=== PATIENT | male | born 1945 | race Caucasian/White ===

== ENCOUNTER 2020-01-08 00:13 | Observation (INO) | payer MEDICARE, SELFPAY ==
[2020-01-08] VITALS (9 sets, daily range): BP systolic 98–179; BP diastolic 51–82; PULSE 63–94; RESP 16–99; TEMP 36.2–36.9; O2SAT 93–100; BMI 32.0
--- NOTE | ~2020-01-08 | US_ITS ---
EXAMINATION: US venous doppler [facility] DATE: 01/10/2020 11:56 INDICATION: Lower limb swelling. TECHNIQUE: Grayscale ultrasound images without and with compression and Doppler ultrasound images of the bilateral lower extremity veins were obtained. COMPARISON: Ultrasound 03/29/2019, 07/12/2018 FINDINGS: The visualized portions of right common femoral vein, profunda (deep) femoral vein, femoral vein, pop liteal vein, peroneal veins, posterior tibial veins, and greater saphenous vein outflow are patent. The visualized portions of left common femoral vein, profunda femoral vein, femoral vein, popliteal v ein, peroneal veins, posterior tibial veins, and greater saphenous vein outflow are patent. IMPRESSION: 1. No deep venous thrombosis. Reviewed, dictated and finalized at location A. NTORY CONTROL ANALYST
--- NOTE | ~2020-01-08 | XR_ITS ---
EXAMINATION: XR ankle LT min 3V DATE: 01/08/2020 00:47 INDICATION: Left ankle pain. TECHNIQUE: 4 views of left ankle were obtained. COMPARISON: None. FINDINGS: Bone alignment is normal. No fracture. Joint spaces are well maintained. There are enthesop hytes at the posterior and plantar aspects of calcaneal tuberosity. Ankle soft tissue swelling is not ed. IMPRESSION: 1. No fracture. Reviewed, dictated and finalized at location A. RETE PUDDLER IMPRESSION: 1. No fracture.
--- NOTE | ~2020-01-08 | XR_ITS ---
EXAMINATION: XR md joint inject/asp w image DATE: 01/08/2020 10:07 INDICATION: Left ankle pain and swelling. TECHNIQUE: A time-out was performed to verify the patient's name, date of , and procedure to b e performed. The procedure including the risks, benefits, and alternatives was discussed with the pat ient. Risks discussed included bleeding and infection. The patient understood the risks and agreed to proceed. The skin overlying the left ankle joint was prepped and draped in usual sterile fashion. Anesthetic was administered with 1% lidocaine subcutaneously. An 18 G needle was advanced under fluo roscopic guidance into the joint. No fluid could be aspirated. Injection of 1 mL of Omnipaque 240 con firmed intra-articular position of the needle. The needle was removed and the entry site was cleaned and dressed. There were no immediate complications. Fluoroscopy exposure time was 0.1 minutes. The t otal number of images was 2. FINDINGS: Real-time fluoroscopy demonstrates the needle in the left ankle joint. IMPRESSION: 1. Fluoroscopy guided left ankle joint aspiration yielding no fluid. Reviewed, dictated and finalized at location A. [employer]
--- NOTE | 2020-01-08 00:36 | ED.EXTPRO ---
HPI - Extremity Problem General Chief complaint: Extremity Injury, Lower Stated complaint: ankle Time Seen by Provider: 01/08/20 00:31 Source: patient and RN notes reviewed Mode of arrival: ambulatory Limitations: no limitations History of Present Illness HPI Narrative: Pt is a 74 y/o male with a Hx of DM and PVD, who presents to the ED with c/o worsening lt foot pain and swelling starting 2 days ago. Pain is dull, aching in nature. He notes that his pain has been progressively worsening, stating that he was unable to sleep this evening due to his pain. Pt notes that movement of his lt ankle aggravates his pain. He currently denies any fever, chills, or numbness. He denies trauma to the left ankle. He denies using any new shoes or orthotic inserts. He denies history of skin infection in the past. MD Complaint: extremity pain and extremity swelling Onset (ago): day(s) (2) Pain Consistency: other (worsening) Location: left (foot) Exacerbating factors: range of motion (lt ankle) Associated symptoms: denies other symptoms Context: history of peripheral vascular disease Related Data Home Medications Medication Instructions Recorded Confirmed atorvastatin 80 mg tablet 80 mg PO DAILY 09/23/19 09/23/19 carvedilol 6.25 mg tablet 6.25 mg PO Q12H 09/23/19 09/23/19 clopidogrel 75 mg tablet 75 mg PO DAILY 09/23/19 09/23/19 furosemide 40 mg tablet 40 mg PO QAM 09/23/19 09/23/19 glipizide 5 mg tablet 5 mg PO BID 09/23/19 09/23/19 isosorbide mononitrate 30 mg 60 mg PO DAILY tablet 09/23/19 09/23/19 tablet,extended release 24 hr mecobalamin (vitamin B12) 1,000 1,000 mcg SUBLINGUAL DAILY 09/23/19 09/23/19 mcg disintegrating tablet,sublingual sacubitril 24 mg-valsartan 26 mg 1 tablet PO BID 09/23/19 09/23/19 tablet spironolactone 25 mg tablet 25 mg PO DAILY 09/23/19 09/23/19 levothyroxine 50 mcg tablet 50 mcg PO DAILY 09/25/19 09/25/19 ranitidine HCl 150 mg capsule 150 mg PO BID cap 09/25/19 09/25/19 vitamins A,C,I-sokj-irbcpo 14,320 1 cap PO BID 09/25/19 09/25/19 unit-226 mg-200 unit capsule Allergies Allergy/AdvReac Type Severity Reaction Status Date / Time Penicillins Allergy Unknown unknown Verified 09/25/19 10:20 Review of Systems Review of Systems: Narrative: CONSTITUTIONAL: Denies fever, chills, or sweats. CARDIOVASCULAR: Denies chest pain, palpitations, or edema. RESPIRATORY: Denies cough or dyspnea. SKIN: Denies rash or itching. MUSCULOSKELETAL: Denies back pain, joint pain, or myalgia. Reports lt foot pain and swelling. NEUROLOGIC: Denies headache, numbness, or weakness. 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 DVT (deep venous thrombosis) Essential (primary) hypertension Gastro-esophageal reflux disease without esophagitis History of stent insertion of renal artery Hypothyroidism, unspecified Mixed hyperlipidemia Pancreatitis Peripheral vascular disease, unspecified Positive for macroalbuminuria Psoriasis Sleep apnea, unspecified (12/29/15) Type 2 diabetes mellitus with stage 3 chronic kidney disease, with long-term current use of insulin Umbilical hernia without obstruction and without gangrene Surgical History Surgical History Hx of CABG Hx of cardiac catheterization Hx of tonsillectomy Social History Social History Smoking status: Former smoker Second hand tobacco smoke exposure: No Smoking end d
[2020-01-08 01:24] LABS: Basophils Percent Auto 0.3 % (0.2-1.2); Eosinophils Absolute Auto 0.3 K/mm3 (0-0.3); Eosinophils Percent Auto 2.1 % (0-4.4); Hematocrit 39.3 % (42.0-52.0); Hemoglobin 12.4 g/dL (14.0-18.0); Immature Granulocyte Absolute 0.03 K/mm3 (0.00-0.031); Immature Granulocyte Percent A 0.2 % (0-0.5); Lymphocytes Absolute Auto 1.52 K/mm3 (0.9-3.2); Mean Corpuscular HGB Conc 31.6 g/dl (32-36); Mean Corpuscular Hemoglobin 30.6 pg (26-34); Mean Platelet Volume 11.1 fl (7.4-10.4); Monocytes Absolute Auto 1.1 K/mm3 (0.1-0.6); Monocytes Percent Auto 8.9 % (2.6-8.5); Neutrophils Absolute Auto 9.7 K/mm3 (1.3-6.7); Neutrophils Percent Auto 76.5 % (45.5-73.1); Platelet Count Result 174 k/mm3 (150-375); Red Blood Count 4.05 M/mm3 (4.6-6.20); Red Cell Distribution Width 13.7 % (11.5-14.5); White Blood Count 12.7 K/mm3 (4.5-10.0)
[2020-01-08 01:34] LABS: Blood Urea Nitrogen 38 mg/dL (9-20); CRP 1.8 mg/dL (<1.0); Calcium 9.4 mg/dL (8.4-10.2); Carbon Dioxide 23 mmol/L (22-30); Chloride 107 mmol/L (98-107); Estimated CRCL calculation 33 ml/min; Estimated Glomerular Filt Rate 35; Glucose 117 mg/dL (75-110); Potassium 4.6 mmol/L (3.4-5.0); Sodium 144 mmol/L (137-145)
[2020-01-08 02:01] LABS: Erythrocyte Sedimentation Rate 46 mm/hr (0-20)
[2020-01-08 05:01] LABS: Glucose Point of Care 120 (65-105)
--- NOTE | 2020-01-08 06:16 | ADMGEN ---
This patient, Jaime Morrell, was admitted to Medical Room 348-. Patient/family oriented to hospital policies and general routines including ID bracelet, bed and alarms, visiting hours, pain management, procedures, bathroom and other care routines, personal items, smoking policy, room service/diet, and visiting hours. Valuables list has been completed. Information on how to activate the Rapid Response Team has been discussed. Patient/Family are encouraged to report perceived risks to care and to ask questions if they do not understand what they are told or what they should do.
[2020-01-08 06:24] LABS: Estimated CRCL calculation 34 ml/min; Estimated Glomerular Filt Rate 37
[2020-01-08 08:26] LABS: Glucose Point of Care 138 (65-105)
[2020-01-08] MEDS: CYANOCOBALAMIN 1,000 MCG TABLET 1000 MCG PO (10:07)
[2020-01-08 10:08] LABS: Glucose Point of Care 120 (65-105)
[2020-01-08] MEDS: carvediloL 6.25 MG TABLET PO ×2 (10:08→20:00)
[2020-01-08] MEDS: SACUBITRIL/VALSARTAN 49-51 MG TABLET 1 TABLET PO ×2 (10:08→20:00)
[2020-01-08] MEDS: ISOSORBIDE MONONITRATE 60 MG TAB.ER.24H PO (10:08)
[2020-01-08] MEDS: FAMOTIDINE 20 MG TABLET PO ×2 (10:09→20:00)
[2020-01-08] MEDS: FUROSEMIDE 40 MG TABLET PO (10:09)
[2020-01-08] MEDS: LEVOTHYROXINE SODIUM 50 MCG TABLET PO (10:09)
[2020-01-08] MEDS: MICONAZOLE NITRATE 2% CREAM 30 GM TUBE 1 APPLIC TOPICAL (10:10)
[2020-01-08] MEDS: SPIRONOLACTONE 25 MG TABLET PO (10:10)
--- NOTE | 2020-01-08 10:47 | PM.IMHP ---
H&P: HPI History of Present Illness Chief complaint: RIGHT FOOT AND ANKLE CELLULITIS Narrative: Jaime Morrell is a 74 year old male with PMH significant for T2DM (last A1C 5.17 Aug 2019), CKD stage III, HLD, hypothyroidism, GERD, HTN, CAD s/p CABG x2 (5 vessel in 1987 and 1 vessel in 2003), diastolic CHF, defibrillator placement, former 28 pack-year smoker, right groin arterial thrombosis following cardiac catheterization requiring 2 compartment RLE fasciotomy in February 2019, and PAD s/p right CEA and aortobifemoral bypass who presented to the ED via EMS with c/o pain and swelling of the left ankle. He reports that sx started Sunday. Pain was dull initially and progressed. He noted mild-moderate discomfort during the day Sunday while running errands. That night, the pain became very severe. On Sunday, he was unable to bear weight on it and stayed in bed until he called EMS. Pain is aggravated with movement and bearing weight. He denies associated sx of nausea, vomiting, fever, and chills. He denies trauma. He denies any prior hx of gout or cellulitis. He does report hx of osteoarthritis. He reports that he is not sexually active. He denies recent GI or infection. He denies abdominal pain. He denies any hx of peripheral vascular intervention to the lower extremities. He denies chest pain, cough, and SOB. He denies claudication. Upon presentation to the ED, he was afebrile. Initial workup in the ED revealed leukocytosis (12.7) with a left shift. ESR elevated at 46 and CRP elevated at 1.8. Sodium was 144, potassium 4.6, chloride 107, CO2 23, BUN 38, and Cr 1.9. Left ankle xray was performed and revealed soft tissue swelling without subcutaneous gas, well-maintained joint spaces, and no evidence of fracture. Joint aspiration was attempted in the ED without success. Empiric antibiotics were initiated. The pt was admitted to the hospitalist service for further evaluation and management. Review of Systems Review of Systems: Narrative: Constitutional: Denies fever, chills, fatigue, and appetite change. Denies generalized weakness. Eyes: Denies vision change. No additional eye complaints. ENT: Denies change in hearing, nasal congestion, dysphagia, odynophagia,and sore throat. Cardiovascular: Denies palpitations and chest pain. Respiratory: Denies cough and shortness of breath. Gastrointestinal: Denies abdominal pain, nausea, and vomiting. Genitourinary: Denies dysuria, frequency, urgency, and hesitancy. Musculoskeletal: Endorses left ankle pain and swelling. Skin: No rashes present. The pt endorses erythema that is hot to touch to left ankle. Endorses calluses to the left foot. Neurologic: Denies focal weakness, paresthesias, confusion, and speech change. Psychiatric: Denies mood change. Denies anxiety and depression. Hematologic: Pt is on plavix and ASA. All systems reviewed & are unremarkable except as noted in HPI and below PMFSH Family History Family History Mother Hypertension Family history of coronary artery disease Father Acute myocardial infarction Family history of coronary artery disease Social History Social History (Updated 01/08/20 @ 10:52 by Yazmin Mancuso PA-C) Smoking packs per day: 1 Smoking cigarettes per day: 20.0 Years smoked: 28 Smoking pack-years: 28.00 Smoking status: Former smoker Tobacco type: cigarettes Second hand tobacco smoke exposure: Yes Smoking end date: 11/12/87 Alcohol intake: never Substance use: never Gender identity (if verbalized by the patient): Male Spiritual care concerns: No Agree to blood products: Yes Comments The pt reports that he lives at home by himself. He has designated his nephew, Rigoberto, as his surrogate decision-maker. 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 He is a former 28 pack-year smoker. He quit smoking in 1987. He denies alcohol use. Meds Home Medications and Allergies Home Medications Medicati
[2020-01-08 12:16] LABS: Uric Acid 8.4 mg/dL (3.5-8.5)
[2020-01-08] MEDS: CLOPIDOGREL BISULFATE 75 MG TABLET PO (12:28)
[2020-01-08] MEDS: ASPIRIN 81 MG ENTERIC TABLET PO (12:28)
[2020-01-08 13:43] LABS: Glucose Point of Care 153 (65-105)
[2020-01-08 13:59] LABS: Glucose Point of Care 174 (65-105)
[2020-01-08] MEDS: ENOXAPARIN 40 MG/0.4 ML SYRINGE SUB-Q (18:06)
[2020-01-08 18:07] LABS: Glucose Point of Care 120 (65-105)
[2020-01-08 19:41] LABS: Glucose Point of Care 120 (65-105)
[2020-01-08] MEDS: ATORVASTATIN 40 MG TABLET 80 MG PO (20:00)
[2020-01-09] MEDS: LEVOTHYROXINE SODIUM 50 MCG TABLET PO (05:57)
[2020-01-09 06:00] VITALS: BP 140/58; PULSE 66; RESP 15; TEMP 36.4; O2SAT 97
[2020-01-09 06:08] LABS: Basophils Percent Auto 0.3 % (0.2-1.2); Eosinophils Absolute Auto 0.2 K/mm3 (0-0.3); Hematocrit 35.7 % (42.0-52.0); Hemoglobin 11.3 g/dL (14.0-18.0); Immature Granulocyte Absolute 0.02 K/mm3 (0.00-0.031); Immature Granulocyte Percent A 0.2 % (0-0.5); Lymphocytes Percent Auto 15.7 % (18.3-44.2); Mean Corpuscular HGB Conc 31.7 g/dl (32-36); Mean Corpuscular Hemoglobin 30.5 pg (26-34); Mean Corpuscular Volume 96.5 fl (80-100); Mean Platelet Volume 11.3 fl (7.4-10.4); Monocytes Absolute Auto 1.1 K/mm3 (0.1-0.6); Monocytes Percent Auto 10.5 % (2.6-8.5); Neutrophils Absolute Auto 7.3 K/mm3 (1.3-6.7); Neutrophils Percent Auto 71.3 % (45.5-73.1); Platelet Count Result 162 k/mm3 (150-375); Red Cell Distribution Width 13.8 % (11.5-14.5); White Blood Count 10.2 K/mm3 (4.5-10.0)
[2020-01-09 06:23] LABS: Alanine Aminotransferase 15 U/L (4-50); Albumin Level 3.7 g/dL (3.5-5.1); Alkaline Phosphatase 85 U/L (38-126); Aspartate Amino Transferase 17 U/L (17-59); Bilirubin,Total 0.4 mg/dL (0.2-1.3); Blood Urea Nitrogen 45 mg/dL (9-20); Carbon Dioxide 23 mmol/L (22-30); Chloride 103 mmol/L (98-107); Estimated CRCL calculation 27 ml/min; Estimated Glomerular Filt Rate 28; Glucose 126 mg/dL (75-110); Potassium 4.1 mmol/L (3.4-5.0); Sodium 141 mmol/L (137-145)
[2020-01-09 07:30] LABS: Glucose Point of Care 128 (65-105)
[2020-01-09] MEDS: FAMOTIDINE 20 MG TABLET PO ×2 (09:17→21:05)
[2020-01-09] MEDS: CYANOCOBALAMIN 1,000 MCG TABLET 1000 MCG PO (09:17)
[2020-01-09 09:18] VITALS: PULSE 68
[2020-01-09] MEDS: carvediloL 6.25 MG TABLET PO ×2 (09:18→21:06)
[2020-01-09] MEDS: CLOPIDOGREL BISULFATE 75 MG TABLET PO (09:18)
[2020-01-09] MEDS: ASPIRIN 81 MG ENTERIC TABLET PO (09:18)
[2020-01-09] MEDS: SPIRONOLACTONE 25 MG TABLET PO (09:18)
[2020-01-09] MEDS: ISOSORBIDE MONONITRATE 60 MG TAB.ER.24H PO (09:18)
[2020-01-09] MEDS: SACUBITRIL/VALSARTAN 49-51 MG TABLET 1 TABLET PO ×2 (09:18→21:05)
[2020-01-09 09:19] VITALS: PULSE 72; RESP 16; O2SAT 96
[2020-01-09] MEDS: MICONAZOLE NITRATE 2% CREAM 30 GM TUBE 1 APPLIC TOPICAL (09:19)
--- NOTE | 2020-01-09 09:57 | P.PNIM_ITS ---
Progress Note: A&P Assessment and Plan (1) Cellulitis in diabetic foot: Code(s): E11.628 - Type 2 diabetes mellitus with other skin complications; L03.119 - Cellulitis of unspecified part of limb Status: Acute Assessment and Plan: * Ddx includes septic arthritis. Pt is s/p unsuccessful attempt at joint aspiration of the left ankle by IR under fluoro guidance. Discussed with the radiologist who does not believe that there is an effusion present. * Discussed the case with ortho, Dr. Gonzalez, who does not feel MRI is necessary at this time. * Pt endorses that pain, erythema, and swelling are improving. He is still unable to bear weight. * Pt is on empiric antibiotics of cefepime and vancomycin for presumed cellulitis. Will continue IV antibiotics as I believe pt will still benefit from IV therapy at this time. 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 * Pt is on glipizide prior to admission. Will hold glipizide. * SSI, ACHS, and hypoglycemia protocol * Blood sugars reviewed and at target. (3) CKD (chronic kidney disease), stage III: Code(s): N18.3 - Chronic kidney disease, stage 3 (moderate) Status: Acute Assessment and Plan: * Pt has hx of CKD stage III due to diabetes, HTN, vascular disease, and age and is established with Dr. Ureña * Baseline Cr appears to be 1.8-2.3 * Cr today 2.3, up from 1.8 yesterday. * I am reluctant to add IV fluids due to CHF and hx of CHF exacerbation * Will hold lasix today and monitor * Will renally dose medications (4) Peripheral vascular disease, unspecified: Code(s): I73.9 - Peripheral vascular disease, unspecified Status: Acute Assessment and Plan: * The pt has significant hx of peripheral vascular disease including carotid stenosis s/p right CEA, aortobifemoral bypass, possible mesenteric bypass per pt, and renal intervention. He denies prior hx of LLE peripheral vascular interventions including stenting and bypass. * Pt has palpable (2+) left DP * Will continue ASA and plavix (5) Mixed hyperlipidemia: Code(s): E78.2 - Mixed hyperlipidemia Status: Acute Assessment and Plan: * LFTs from 03/29/19 reviewed and WNL * Continue atorvastatin 80mg (6) Hypothyroidism, unspecified: Code(s): E03.9 - Hypothyroidism, unspecified Status: Acute Assessment and Plan: * Continue levothyroxine 50mcg (7) Gastro-esophageal reflux disease without esophagitis: Code(s): K21.9 - Gastro-esophageal reflux disease without esophagitis Status: Acute Assessment and Plan: * Pt was previously on ranitidine but his prescription ran out * Will treat with famotidine while inpatient (8) Essential (primary) hypertension: Code(s): I10 - Essential (primary) hypertension Status: Acute Assessment and Plan: * BP reviewed and stable * Will continue prior to admission antihypertensives * Will continue to monitor (9) 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
--- NOTE | 2020-01-09 09:57 | PM.IMPN ---
Progress Note: A&P Assessment and Plan (1) Cellulitis in diabetic foot: Code(s): E11.628 - Type 2 diabetes mellitus with other skin complications; L03.119 - Cellulitis of unspecified part of limb Status: Acute Assessment and Plan: Ddx includes septic arthritis. Pt is s/p unsuccessful attempt at joint aspiration of the left ankle by IR under fluoro guidance. Discussed with the radiologist who does not believe that there is an effusion present. Discussed the case with ortho, Dr. Gonzalez, who does not feel MRI is necessary at this time. Pt endorses that pain, erythema, and swelling are improving. He is still unable to bear weight. Pt is on empiric antibiotics of cefepime and vancomycin for presumed cellulitis. Will continue IV antibiotics as I believe pt will still benefit from IV therapy at this time. (2) Type 2 diabetes mellitus with stage 3 chronic kidney disease, with long-term current use of insulin: Code(s): E11.22 - Type 2 diabetes mellitus with diabetic chronic kidney disease; N18.3 - Chronic kidney disease, stage 3 (moderate); Z79.4 - terminal clerk (current) use of insulin Status: Acute Assessment and Plan: Per pt, his T2DM is well-controlled and last A1C was 5.6. Pt is on glipizide prior to admission. Will hold glipizide. SSI, ACHS, and hypoglycemia protocol Blood sugars reviewed and at target. (3) CKD (chronic kidney disease), stage III: Code(s): N18.3 - Chronic kidney disease, stage 3 (moderate) Status: Acute Assessment and Plan: Pt has hx of CKD stage III due to diabetes, HTN, vascular disease, and age and is established with Dr. Ureña Baseline Cr appears to be 1.8-2.3 Cr today 2.3, up from 1.8 yesterday. I am reluctant to add IV fluids due to CHF and hx of CHF exacerbation Will hold lasix today and monitor Will renally dose medications (4) Peripheral vascular disease, unspecified: Code(s): I73.9 - Peripheral vascular disease, unspecified Status: Acute Assessment and Plan: The pt has significant hx of peripheral vascular disease including carotid stenosis s/p right CEA, aortobifemoral bypass, possible mesenteric bypass per pt, and renal intervention. He denies prior hx of LLE peripheral vascular interventions including stenting and bypass. Pt has palpable (2+) left DP Will continue ASA and plavix (5) Mixed hyperlipidemia: Code(s): E78.2 - Mixed hyperlipidemia Status: Acute Assessment and Plan: LFTs from 03/29/19 reviewed and WNL Continue atorvastatin 80mg (6) Hypothyroidism, unspecified: Code(s): E03.9 - Hypothyroidism, unspecified Status: Acute Assessment and Plan: Continue levothyroxine 50mcg (7) Gastro-esophageal reflux disease without esophagitis: Code(s): K21.9 - Gastro-esophageal reflux disease without esophagitis Status: Acute Assessment and Plan: Pt was previously on ranitidine but his prescription ran out Will treat with famotidine while inpatient (8) Essential (primary) hypertension: Code(s): I10 - Essential (primary) hypertension Status: Acute Assessment and Plan: BP reviewed and stable Will continue prior to admission antihypertensives Will continue to monitor (9) 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 Pt appears euvolemic. Will continue spiron
[2020-01-09 12:34] LABS: Glucose Point of Care 111 (65-105)
[2020-01-09 14:00] VITALS: BP 146/62; PULSE 72; RESP 16; TEMP 37.1; O2SAT 96
[2020-01-09] MEDS: ENOXAPARIN 30 MG/0.3 ML SYRINGE SUB-Q (17:22)
[2020-01-09 17:30] LABS: Glucose Point of Care 121 (65-105)
[2020-01-09 21:04] VITALS: BP 133/63; PULSE 65; RESP 16; TEMP 36.9; O2SAT 97
[2020-01-09] MEDS: ATORVASTATIN 40 MG TABLET 80 MG PO (21:04)
[2020-01-09 21:06] VITALS: PULSE 64
[2020-01-09 22:00] LABS: Glucose Point of Care 115 (65-105)
[2020-01-10 06:00] VITALS: BP 138/45; PULSE 65; RESP 16; TEMP 36.4; O2SAT 95
[2020-01-10 06:05] LABS: Basophils Absolute Auto 0.1 K/mm3 (0.0-0.1); Basophils Percent Auto 0.6 % (0.2-1.2); Eosinophils Absolute Auto 0.3 K/mm3 (0-0.3); Eosinophils Percent Auto 3.7 % (0-4.4); Hematocrit 30.9 % (42.0-52.0); Immature Granulocyte Absolute 0.02 K/mm3 (0.00-0.031); Immature Granulocyte Percent A 0.2 % (0-0.5); Lymphocytes Absolute Auto 1.48 K/mm3 (0.9-3.2); Lymphocytes Percent Auto 16.7 % (18.3-44.2); Mean Corpuscular HGB Conc 32.4 g/dl (32-36); Mean Corpuscular Hemoglobin 31.3 pg (26-34); Mean Corpuscular Volume 96.6 fl (80-100); Mean Platelet Volume 11.6 fl (7.4-10.4); Monocytes Percent Auto 10.9 % (2.6-8.5); Neutrophils Percent Auto 67.9 % (45.5-73.1); Platelet Count Result 148 k/mm3 (150-375); Red Cell Distribution Width 13.5 % (11.5-14.5); White Blood Count 8.9 K/mm3 (4.5-10.0)
[2020-01-10] MEDS: LEVOTHYROXINE SODIUM 50 MCG TABLET PO (06:09)
[2020-01-10 06:22] LABS: Blood Urea Nitrogen 51 mg/dL (9-20); Calcium 8.4 mg/dL (8.4-10.2); Carbon Dioxide 20 mmol/L (22-30); Chloride 102 mmol/L (98-107); Estimated CRCL calculation 30 ml/min; Estimated Glomerular Filt Rate 31; Glucose 110 mg/dL (75-110); Sodium 137 mmol/L (137-145)
[2020-01-10 08:06] VITALS: PULSE 63
[2020-01-10] MEDS: carvediloL 6.25 MG TABLET PO ×2 (08:06→20:00)
[2020-01-10] MEDS: CLOPIDOGREL BISULFATE 75 MG TABLET PO (08:06)
[2020-01-10] MEDS: ASPIRIN 81 MG ENTERIC TABLET PO (08:06)
[2020-01-10] MEDS: CYANOCOBALAMIN 1,000 MCG TABLET 1000 MCG PO (08:06)
[2020-01-10] MEDS: FAMOTIDINE 20 MG TABLET PO ×2 (08:07→20:01)
[2020-01-10] MEDS: SACUBITRIL/VALSARTAN 49-51 MG TABLET 1 TABLET PO ×2 (08:07→20:01)
[2020-01-10] MEDS: ISOSORBIDE MONONITRATE 60 MG TAB.ER.24H PO (08:07)
[2020-01-10] MEDS: SPIRONOLACTONE 25 MG TABLET PO (08:07)
[2020-01-10] MEDS: MICONAZOLE NITRATE 2% CREAM 30 GM TUBE 1 APPLIC TOPICAL (08:08)
--- NOTE | 2020-01-10 09:57 | P.PNIM_ITS ---
Progress Note: A&P Assessment and Plan (1) Cellulitis in diabetic foot: Code(s): E11.628 - Type 2 diabetes mellitus with other skin complications; L03.119 - Cellulitis of unspecified part of limb Status: Acute Assessment and Plan: * Ddx includes septic arthritis. Pt is s/p unsuccessful attempt at joint aspiration of the left ankle by IR under fluoro guidance. Discussed with the radiologist who does not believe that there is an effusion present. * Discussed the case with ortho, Dr. Gonzalez, who does not feel MRI is necessary at this time. * Pt is able to bear weight today on the ball of the left foot and is ambulating with the walker. * Pt is on empiric antibiotics of cefepime and vancomycin for presumed cellulitis. Pt will continue to benefit from IV abx which will be switched to a PO regimen at discharge. * Due to persistent LLE edema, I will order venous doppler US to r/o DVT. I suspect that this swelling is more likely due to cellulitis, dependency, and decreased activity due to pain. 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 * Pt is on glipizide prior to admission. Will hold glipizide. * SSI, ACHS, and hypoglycemia protocol * Blood sugars reviewed and at target. (3) CKD (chronic kidney disease), stage III: Code(s): N18.3 - Chronic kidney disease, stage 3 (moderate) Status: Acute Assessment and Plan: * Pt has hx of CKD stage III due to diabetes, HTN, vascular disease, and age and is established with Dr. Ureña * Baseline Cr appears to be 1.8-2.3 * Cr improved to 2.1 today, CrCl 30 * Will resume lasix at a reduced dose of 20mg today * Will renally dose medications * Will continue to monitor (4) Peripheral vascular disease, unspecified: Code(s): I73.9 - Peripheral vascular disease, unspecified Status: Acute Assessment and Plan: * The pt has significant hx of peripheral vascular disease including carotid stenosis s/p right CEA, aortobifemoral bypass, possible mesenteric bypass per pt, and renal intervention. He denies prior hx of LLE peripheral vascular interventions including stenting and bypass. * Pt has palpable (2+) left DP. He denies claudication. * Will continue ASA and plavix (5) Mixed hyperlipidemia: Code(s): E78.2 - Mixed hyperlipidemia Status: Acute Assessment and Plan: * LFTs from 03/29/19 reviewed and WNL * Continue atorvastatin 80mg (6) Hypothyroidism, unspecified: Code(s): E03.9 - Hypothyroidism, unspecified Status: Acute Assessment and Plan: * Continue levothyroxine 50mcg (7) Gastro-esophageal reflux disease without esophagitis: Code(s): K21.9 - Gastro-esophageal reflux disease without esophagitis Status: Acute Assessment and Plan: * Pt was previously on ranitidine but his prescription ran out * Will treat with famotidine while inpatient (8) Essential (primary) hypertension: Code(s): I10 - Essential (primary) hypertension Status: Acute Assessment and Plan: * BP reviewed and stable * Will continue prior to admission antihypert
--- NOTE | 2020-01-10 09:57 | PM.IMPN ---
Progress Note: A&P Assessment and Plan (1) Cellulitis in diabetic foot: Code(s): E11.628 - Type 2 diabetes mellitus with other skin complications; L03.119 - Cellulitis of unspecified part of limb Status: Acute Assessment and Plan: Ddx includes septic arthritis. Pt is s/p unsuccessful attempt at joint aspiration of the left ankle by IR under fluoro guidance. Discussed with the radiologist who does not believe that there is an effusion present. Discussed the case with ortho, Dr. Gonzalez, who does not feel MRI is necessary at this time. Pt is able to bear weight today on the ball of the left foot and is ambulating with the walker. Pt is on empiric antibiotics of cefepime and vancomycin for presumed cellulitis. Pt will continue to benefit from IV abx which will be switched to a PO regimen at discharge. Due to persistent LLE edema, I will order venous doppler US to r/o DVT. I suspect that this swelling is more likely due to cellulitis, dependency, and decreased activity due to pain. (2) Type 2 diabetes mellitus with stage 3 chronic kidney disease, with long-term current use of insulin: Code(s): E11.22 - Type 2 diabetes mellitus with diabetic chronic kidney disease; N18.3 - Chronic kidney disease, stage 3 (moderate); Z79.4 - intermediate (current) use of insulin Status: Acute Assessment and Plan: Per pt, his T2DM is well-controlled and last A1C was 5.6. Pt is on glipizide prior to admission. Will hold glipizide. SSI, ACHS, and hypoglycemia protocol Blood sugars reviewed and at target. (3) CKD (chronic kidney disease), stage III: Code(s): N18.3 - Chronic kidney disease, stage 3 (moderate) Status: Acute Assessment and Plan: Pt has hx of CKD stage III due to diabetes, HTN, vascular disease, and age and is established with Dr. Ureña Baseline Cr appears to be 1.8-2.3 Cr improved to 2.1 today, CrCl 30 Will resume lasix at a reduced dose of 20mg today Will renally dose medications Will continue to monitor (4) Peripheral vascular disease, unspecified: Code(s): I73.9 - Peripheral vascular disease, unspecified Status: Acute Assessment and Plan: The pt has significant hx of peripheral vascular disease including carotid stenosis s/p right CEA, aortobifemoral bypass, possible mesenteric bypass per pt, and renal intervention. He denies prior hx of LLE peripheral vascular interventions including stenting and bypass. Pt has palpable (2+) left DP. He denies claudication. Will continue ASA and plavix (5) Mixed hyperlipidemia: Code(s): E78.2 - Mixed hyperlipidemia Status: Acute Assessment and Plan: LFTs from 03/29/19 reviewed and WNL Continue atorvastatin 80mg (6) Hypothyroidism, unspecified: Code(s): E03.9 - Hypothyroidism, unspecified Status: Acute Assessment and Plan: Continue levothyroxine 50mcg (7) Gastro-esophageal reflux disease without esophagitis: Code(s): K21.9 - Gastro-esophageal reflux disease without esophagitis Status: Acute Assessment and Plan: Pt was previously on ranitidine but his prescription ran out Will treat with famotidine while inpatient (8) Essential (primary) hypertension: Code(s): I10 - Essential (primary) hypertension Status: Acute Assessment and Plan: BP reviewed and stable Will continue prior to admission antihypertensives Will continue to monitor (9) 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
[2020-01-10] MEDS: FUROSEMIDE 20 MG TABLET PO (10:01)
[2020-01-10 12:33] LABS: Glucose Point of Care 117 (65-105)
[2020-01-10 14:00] VITALS: BP 132/59; PULSE 70; RESP 20; TEMP 36.6; O2SAT 100
[2020-01-10] MEDS: ENOXAPARIN 40 MG/0.4 ML SYRINGE SUB-Q (17:18)
[2020-01-10 18:19] LABS: Glucose Point of Care 131 (65-105)
[2020-01-10 19:55] VITALS: BP 152/53; PULSE 61; RESP 18; TEMP 36.8; O2SAT 99
[2020-01-10 20:00] VITALS: PULSE 61
[2020-01-10] MEDS: ATORVASTATIN 40 MG TABLET 80 MG PO (20:00)
[2020-01-10 21:06] LABS: Glucose Point of Care 126 (65-105)
[2020-01-11 04:01] LABS: Basophils Percent Auto 0.4 % (0.2-1.2); Eosinophils Absolute Auto 0.4 K/mm3 (0-0.3); Eosinophils Percent Auto 4.5 % (0-4.4); Hematocrit 34.3 % (42.0-52.0); Hemoglobin 10.9 g/dL (14.0-18.0); Immature Granulocyte Absolute 0.02 K/mm3 (0.00-0.031); Immature Granulocyte Percent A 0.2 % (0-0.5); Lymphocytes Absolute Auto 1.34 K/mm3 (0.9-3.2); Mean Corpuscular HGB Conc 31.8 g/dl (32-36); Mean Corpuscular Hemoglobin 30.8 pg (26-34); Mean Corpuscular Volume 96.9 fl (80-100); Mean Platelet Volume 11.1 fl (7.4-10.4); Monocytes Absolute Auto 0.6 K/mm3 (0.1-0.6); Monocytes Percent Auto 7.5 % (2.6-8.5); Neutrophils Percent Auto 71.4 % (45.5-73.1); Platelet Count Result 169 k/mm3 (150-375); Red Blood Count 3.54 M/mm3 (4.6-6.20); Red Cell Distribution Width 13.4 % (11.5-14.5); White Blood Count 8.4 K/mm3 (4.5-10.0)
[2020-01-11 05:11] LABS: Vancomycin Trough 12.7 ug/mL (10.0-20.0)
[2020-01-11 05:31] LABS: Blood Urea Nitrogen 57 mg/dL (9-20); Calcium 9.1 mg/dL (8.4-10.2); Carbon Dioxide 21 mmol/L (22-30); Chloride 108 mmol/L (98-107); Estimated CRCL calculation 30 ml/min; Estimated Glomerular Filt Rate 31; Glucose 116 mg/dL (75-110); Potassium 4.3 mmol/L (3.4-5.0); Sodium 139 mmol/L (137-145)
[2020-01-11 06:00] VITALS: BP 134/51; PULSE 66; RESP 16; TEMP 36.6; O2SAT 98
[2020-01-11] MEDS: LEVOTHYROXINE SODIUM 50 MCG TABLET PO (06:14)
[2020-01-11] MEDS: CYANOCOBALAMIN 1,000 MCG TABLET 1000 MCG PO (09:06)
[2020-01-11] MEDS: CLOPIDOGREL BISULFATE 75 MG TABLET PO (09:06)
[2020-01-11] MEDS: FAMOTIDINE 20 MG TABLET PO (09:06)
[2020-01-11 09:07] VITALS: PULSE 61
[2020-01-11] MEDS: SPIRONOLACTONE 25 MG TABLET PO (09:07)
[2020-01-11] MEDS: ISOSORBIDE MONONITRATE 60 MG TAB.ER.24H PO (09:07)
[2020-01-11] MEDS: ASPIRIN 81 MG ENTERIC TABLET PO (09:07)
[2020-01-11] MEDS: SACUBITRIL/VALSARTAN 49-51 MG TABLET 1 TABLET PO (09:07)
[2020-01-11] MEDS: carvediloL 6.25 MG TABLET PO (09:07)
[2020-01-11] MEDS: MICONAZOLE NITRATE 2% CREAM 30 GM TUBE 1 APPLIC TOPICAL (09:08)
--- NOTE | 2020-01-11 10:08 | PM.DS ---
DS: Diagnosis Admitting Diagnosis Admitting Diagnosis: Left Ankle and Foot Cellulitis Discharge Diagnosis (1) Cellulitis in diabetic foot: Code(s): E11.628 - Type 2 diabetes mellitus with other skin complications; L03.119 - Cellulitis of unspecified part of limb Status: Acute Assessment and Plan: Mr. Morrell is a 74 y.o. male with PMH significant for T2DM (last A1C 5.17 Aug 2019), CKD stage III, HLD, hypothyroidism, GERD, HTN, CAD s/p CABG x2 (5 vessel in 1987 and 1 vessel in 2003), diastolic CHF, defibrilator placement, former 28 pack-year smoker, right groin arterial thrombosis following cardiac catheterization requiring 2 compartment RLE fasciotomy in February 2019, and PAD s/p right CEA and aortobifemoral bypass who presented to the ED with c/o left ankle pain, swelling, and erythema for two days. The pain was so severe that he was unable to bear weight on the ankle. Initial workup in the ED revealed leukocytosis with a left shift. Left ankle xray was performed in the ED and revealed soft tissue swelling without subcutaneous gas and well-maintained joint spaces without evidence of fracture. Joint aspiration was attempted and unsuccessful. The pt was admitted to the medical service for further evaluation. He underwent fluoro-guided joint aspiration by IR which was unsuccessful as the radiologist did not see an effusion to aspirate. Uric acid was not elevated. He was treated with empiric IV abx vancomycin and cefepime for presumed cellulitis with improvement. Due to persistent swelling, venous doppler US was performed to r/o DVT which was negative. He continued to improve and was able to bear weight while ambulating with PT. He was switched to PO therapy of clindamycin at the day of discharge. I discussed the risk for c. diff colitis associated with clindamycin and advised the pt to discontinue therapy immediately if diarrhea developed. Clindamycin was chosen since pt has renal insufficiency and PCN allergy. He was advised to follow-up with his PCP in a few days to ensure clinical improvement and check labs. (2) Type 2 diabetes mellitus with stage 3 chronic kidney disease, with long-term current use of insulin: Code(s): E11.22 - Type 2 diabetes mellitus with diabetic chronic kidney disease; N18.3 - Chronic kidney disease, stage 3 (moderate); Z79.4 - salvage determiner (current) use of insulin Status: Acute Assessment and Plan: Per pt, his T2DM is well-controlled and last A1C was 5.6. Pt is on glipizide prior to admission. Will hold glipizide while inpatient. SSI, ACHS, and hypoglycemia protocol Blood sugars reviewed and at target during his stay Glipizide was resumed at discharge (3) CKD (chronic kidney disease), stage III: Code(s): N18.3 - Chronic kidney disease, stage 3 (moderate) Status: Acute Assessment and Plan: Pt has hx of CKD stage III due to diabetes, HTN, vascular disease, and age and is established with Dr. Ureña Baseline Cr appears to be 1.8-2.3 Cr was monitored and medications were renally dosed The pt was advised to have follow-up labs with PCP to ensure renal function stable (4) Peripheral vascular disease, unspecified: Code(s): I73.9 - Peripheral vascular disease, unspecified Status: Acute Assessment and Plan: The pt has significant hx of peripheral vascular disease including carotid stenosis s/p right CEA, aortobifemoral bypass, possible mesenteric bypass per pt, and renal intervention. He denies prior hx of LLE peripheral vascular interventions including stenting and bypass. Pt has palpable (2+) left DP. He denies claudication. ASA and plavix were continued (5) Mixed hyperlipidemia: Code(s): E78.2 - Mixed hyperlipidemia Status: Acute Assessment and Plan: LFTs from 03/29/19 reviewed and WNL Atorvastatin 80mg was continued (6) Hypothyroidism, unspecified: Code(s): E03.9 - Hypothyroidism,
[2020-01-11 10:55] LABS: Glucose Point of Care 125 (65-105)
[2020-01-13 17:27] LABS: HLA B27 Negative (Negative)
--- NOTE | 2020-01-15 14:13 | PC.NURSE ---
Blood cx is negative.
== END 2020-01-11 12:40 | disposition home or self-care (01) ==
LOC: ANHED 03:43 → ANH3MED 04:13
PROVIDERS: Physician Assistant; Admitting Provider Internal Medicine; Emergency Provider Emergency Medicine; PCP Family Medicine; Visit Provider Internal Medicine
DX: E11.628 Type 2 diabetes mellitus with other skin complications (principal); L03.116 Cellulitis of left lower limb; E11.51 Type 2 diabetes mellitus with diabetic peripheral angiopathy without gangrene; E11.22 Type 2 diabetes mellitus with diabetic chronic kidney disease; I13.0 Hypertensive heart and chronic kidney disease with heart failure and stage 1 through stage 4 chronic kidney disease, or unspecified chronic kidney disease; I50.32 Chronic diastolic (congestive) heart failure; N18.3 Chronic kidney disease, stage 3 (moderate); I25.728 Atherosclerosis of autologous artery coronary artery bypass graft(s) with other forms of angina pectoris; J44.9 Chronic obstructive pulmonary disease, unspecified; E78.2 Mixed hyperlipidemia; E03.9 Hypothyroidism, unspecified; K21.9 Gastro-esophageal reflux disease without esophagitis; Z79.84 Long term (current) use of oral hypoglycemic drugs; Z79.899 Other long term (current) drug therapy; Z86.718 Personal history of other venous thrombosis and embolism; Z87.891 Personal history of nicotine dependence; Z88.0 Allergy status to penicillin; Z95.810 Presence of automatic (implantable) cardiac defibrillator
CPT/HCPCS: 20605; 36415; 73610; 77002; 80048; 80053; 80202; 82565; 84550; 85025; 85652; 86140; 86812; 87040; 93970; 96365; 96366; 96367; 96372; 97110; 97116; 97161; 97165; 99285; A9270; G0378; J0692; J1650; J3370; Q9966

== ENCOUNTER 2020-10-20 14:46 | Inpatient (IN) | payer MEDICARE, SELFPAY ==
[2020-10-20] VITALS (8 sets, daily range): BP systolic 143–221; BP diastolic 68–88; PULSE 80–106; RESP 18–24; TEMP 35.7–37.6; O2SAT 98–100; BMI 36.6; BMI 35.5
--- NOTE | ~2020-10-20 | US_ITS ---
EXAMINATION: US venous doppler LE RT DATE: 10/21/2020 11:27 INDICATION: Right lower limb edema. TECHNIQUE: Grayscale ultrasound images without and with compression and Doppler ultrasound images of the right lower extremity veins were obtained. COMPARISON: Ultrasound 01/10/2020 FINDINGS: The visualized portions of right common femoral vein, profunda (deep) femoral vein, femoral vein, pop liteal vein, posterior tibial veins, and greater saphenous vein outflow are patent. IMPRESSION: 1. No deep venous thrombosis. Reviewed, dictated and finalized at location B. UER PIN PRESS OPERATOR
--- NOTE | ~2020-10-20 | CT_ITS ---
EXAMINATION: CTA chest PE protocol DATE: 10/20/2020 16:05 INDICATION: Shortness of breath and cough TECHNIQUE: Computed tomography angiography (CTA) of the chest was performed with 100 mL Omnipaque-350 intravenous contrast timed to evaluate the pulmonary arteries. Coronal maximum intensity projection 3D-reconstructions were created by the technologist. The dose-length product (DLP) was 846.17 mGy-cm. Automated exposure control and iterative reconstruction technique were employed. COMPARISON: 12/20/2015 FINDINGS: The pulmonary arteries are well-opacified. No pulmonary embolism is identified. Respiratory motion artifact somewhat limits evaluation of subsegmental arterial branches in the lower lobes alth ough no embolism is seen. Small pleural effusions are present. Cardiomegaly is noted. There are kumar es of coronary artery bypass grafting. There are patchy groundglass opacities and smooth interlobular septal thickening with a lower lung zone predominance. Bilateral gynecomastia is noted. Mild mediast inal lymphadenopathy is likely reactive. Endoluminal stents are noted in the superior mesenteric david ry and right renal artery. There is severe atrophy of the right kidney. Stones are present in the non distended gallbladder. Punctate calcifications in an otherwise normal spleen likely represent healed granulomatous disease. IMPRESSION: 1. No pulmonary embolism, sensitivity slightly limited by respiratory motion artifact. 2. Cardiomegaly with pulmonary edema. 3. Small pleural effusions. Reviewed, dictated and finalized at location A. BOX OPERATOR IMPRESSION: 1. No pulmonary embolism, sensitivity slightly limited by respiratory motion ar tifact. 2. Cardiomegaly with pulmonary edema. 3. Small pleural effusions.
--- NOTE | ~2020-10-20 | XR_ITS ---
EXAMINATION: XR chest 2V DATE: 10/20/2020 15:25 INDICATION: Shortness of breath, COPD TECHNIQUE: PA and lateral views of the chest are obtained. COMPARISON: 03/29/2019 FINDINGS: There is stable cardiomegaly. A single lead pacemaker has been inserted in the anterior lef t chest wall which ends with its lead in the right ventricle. Median sternotomy wires and mediastinal surgical clips are seen, likely from prior coronary artery bypass grafting. There is a mild diffuse interstitial pattern. More focal airspace opacities are seen in the lung bases. Small pleural effusio ns are present. There is no pneumothorax. There is moderate thoracic spondylosis. Endoluminal stents are noted in the upper abdomen. IMPRESSION: 1. Cardiomegaly with pulmonary edema. 2. Small pleural effusions. 3. Bibasilar airspace opacities, likely atelectasis. Reviewed, dictated and finalized at location A. NOMY TEACHER
--- NOTE | 2020-10-20 14:58 | ED.SOB ---
HPI - SOB/Dyspnea General Chief Complaint: Shortness of Breath/Dyspnea Stated Complaint: sob Time Seen by Provider: 10/20/20 14:58 History of Present Illness HPI Narrative: 75 yo male w/ h/o CHF presents form home for SOB. He says that he has been SOB for the past few days. Associated with BERRIOS and orthopnea. He denies swelling, weight gain, fever, CP. Related Data Home Medications Medication Instructions Recorded Confirmed atorvastatin 80 mg tablet 80 mg PO DAILY 09/23/19 01/08/20 carvedilol 6.25 mg tablet 6.25 mg PO Q12H 09/23/19 01/08/20 furosemide 40 mg tablet 40 mg PO QAM 09/23/19 01/08/20 isosorbide mononitrate 30 mg 60 mg PO DAILY tablet 09/23/19 01/08/20 tablet,extended release 24 hr mecobalamin (vitamin B12) 1,000 1,000 mcg SUBLINGUAL DAILY 09/23/19 01/08/20 mcg disintegrating tablet,sublingual spironolactone 25 mg tablet 25 mg PO DAILY 09/23/19 01/08/20 ranitidine HCl 150 mg capsule 150 mg PO BID cap 09/25/19 01/08/20 vitamins A,C,L-amhq-wsbdog 14,320 1 cap PO BID 09/25/19 01/08/20 unit-226 mg-200 unit capsule Entresto 1 tablet PO BID 01/08/20 01/08/20 Allergies Allergy/AdvReac Type Severity Reaction Status Date / Time Penicillins Allergy Severe unknown Verified 10/20/20 15:00 Review of Systems Constitutional: Constitutional: Denies fever(s) and Denies weakness Cardiovascular: Cardiovascular: Denies chest pain Respiratory: Respiratory: Reports cough and Reports dyspnea Gastrointestinal: Gastrointestinal: Denies nausea Musculoskeletal: Musculoskeletal: Denies back pain Neurologic: Denies confusion and Denies weakness [facility] Past Medical History Medical History AAA (abdominal aortic aneurysm) Anemia Arthritis Back pain Bowel obstruction Cardiac defibrillator in place Carotid stenosis, bilateral Carpal tunnel syndrome Chronic diastolic CHF (congestive heart failure) Chronic renal insufficiency, stage III (moderate) COPD (chronic obstructive pulmonary disease) 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 DVT (deep venous thrombosis) Essential (primary) hypertension Gastro-esophageal reflux disease without esophagitis History of stent insertion of renal artery Hypothyroidism, unspecified Mixed hyperlipidemia Pancreatitis Peripheral vascular disease, unspecified Positive for macroalbuminuria Psoriasis Sleep apnea, unspecified (12/29/15) Type 2 diabetes mellitus with stage 3 chronic kidney disease, with long-term current use of insulin Umbilical hernia without obstruction and without gangrene Surgical History Surgical History Hx of CABG Hx of cardiac catheterization Hx of cataract surgery May 2020 Hx of tonsillectomy Family History Family History Mother Hypertension Family history of coronary artery disease Father Acute myocardial infarction Family history of coronary artery disease Social History Social History Smoking packs per day: 1 Smoking cigarettes per day: 20.0 Years smoked: 28 Smoking pack-years: 28.00 Smoking status: Former smoker (patient stopped smoking when he was 43 years old) Tobacco type: cigarettes Second hand tobacco smoke exposure: Yes Smoking end date: 11/12/87 Alcohol intake: never Substance use: never Gender identity (if verbalized by the patient): Male Spiritual care concerns: No Agree to blood products: Yes Exam Const: General: no acute distress, alert and ill appearing chronically Nutritional Appearance: obese Orientation/consciousness: patient oriented x3 HENMT: Head: normal to inspection Chest: Chest palpation & inspection: normal inspection of the chest and no tenderness Resp: Effort & Inspection: labored and tachypneic Auscultation: crackles Card
--- NOTE | 2020-10-20 15:02 | ECG_ITS ---
Measurements Intervals [place] Rate: 111 P: 13 IN: 137 QRS: 217 QRSD: 131 T: 155 QT: 356 QTc: 484 Interpretive Statements SINUS TACHYCARDIA LEFT BUNDLE BRANCH BLOCK INFERIOR INFARCT, AGE INDETERMINATE BASELINE ARTIFACT- I, III, AVL, AVF, V3-V6 ABNORMAL ECG Electronically Signed On 10-20-2020 15:13:26 [employer]2B SALES CONSULTANT by Leon Mckeon D.O.
[2020-10-20 15:17] LABS: Basophils Percent Auto 0.3 % (0.2-1.2); Eosinophils Absolute Auto 0.2 K/mm3 (0-0.3); Eosinophils Percent Auto 1.4 % (0-4.4); Hematocrit 39.9 % (42.0-52.0); Hemoglobin 12.5 g/dL (14.0-18.0); Immature Granulocyte Absolute 0.05 K/mm3 (0.00-0.031); Immature Granulocyte Percent A 0.4 % (0-0.5); Lymphocytes Absolute Auto 1.59 K/mm3 (0.9-3.2); Lymphocytes Percent Auto 11.6 % (18.3-44.2); Mean Corpuscular HGB Conc 31.3 g/dl (32-36); Mean Corpuscular Hemoglobin 32.6 pg (26-34); Mean Corpuscular Volume 104.2 fl (80-100); Mean Platelet Volume 11.3 fl (7.4-10.4); Neutrophils Absolute Auto 10.9 K/mm3 (1.3-6.7); Neutrophils Percent Auto 79.3 % (45.5-73.1); Platelet Count Result 223 k/mm3 (150-375); Red Blood Count 3.83 M/mm3 (4.6-6.20); Red Cell Distribution Width 14.4 % (11.5-14.5); White Blood Count 13.8 K/mm3 (4.5-10.0)
[2020-10-20 15:25] LABS: Ovalocytes 1+ (NORMAL); Platelet Estimate Adequate (Adequate)
[2020-10-20 15:30] LABS: Anion Gap 10 mmol/L (8-16); Blood Urea Nitrogen 39 mg/dL (9-20); Calcium 9.8 mg/dL (8.4-10.2); Carbon Dioxide 27 mmol/L (22-30); Chloride 106 mmol/L (98-107); Estimated CRCL calculation 33 ml/min; Estimated Glomerular Filt Rate 33; Glucose 141 mg/dL (75-110); Potassium 4.7 mmol/L (3.4-5.0); Sodium 143 mmol/L (137-145)
[2020-10-20] MEDS: FUROSEMIDE INJ 40 MG/4 ML VIAL IV PUSH (15:35)
[2020-10-20] MEDS: METOPROLOL TARTRATE INJ 5 MG/5 ML VIAL IV PUSH (15:35)
[2020-10-20 16:10] LABS: NT Pro B Type Natriuretic Pept 19900 PG/ML (5-100); Troponin I 0.182 ng/mL (0.000-0.034)
[2020-10-20] MEDS: NITROGLYCERIN OINTMENT 1 INCH DOSE TRANSDERM (17:10)
[2020-10-20 20:35] LABS: Troponin I 0.197 ng/mL (0.000-0.034)
--- NOTE | 2020-10-20 21:07 | ADMGEN ---
This patient, Jaime Morrell, was admitted to IMU Room 214-01 AT 2100. Patient/family oriented to hospital policies and general routines including ID bracelet, bed and alarms, visiting hours, pain management, procedures, bathroom and other care routines, personal items, smoking policy, room service/diet, and visiting hours. Information on how to activate the Rapid Response Team has been discussed. Patient/Family are encouraged to report perceived risks to care and to ask questions if they do not understand what they are told or what they should do.
--- NOTE | 2020-10-20 23:37 | PM.IMHP ---
H&P: HPI History of Present Illness Date/Time: 10/20/20 23:37 Chief complaint: CHF exacerbation Narrative: Jaime Morrell is a 75 year old male has a history of coronary artery disease and CHF. The patient presented to the emergency room due to shortness of breath. He has been short of breath on exertion and orthopnea. He denies any swelling but he tells me that his right leg is always more swollen than normal he has had a home vein harvesting to the right when and also had what sounds like a fasciotomy. The patient stated that he has been taking his routine medication is not changed anything in his diet. Pleural effusion by a basilar airspace. CT a no pulmonary embolism sensitivities slightly limited by respiratory motion artifact cardiomegaly with pulmonary edema small pleural effusions. The patient does have sleep apnea and usually sleeps with 2 L per nasal cannula and does not usually use it during the day. Right now the patient is on 4 L per nasal cannula. IV nitroglycerin and Lasix in the emergency room. Troponin 0.182 and 0.197. [place] [address]. The patient is being admitted into inpatient status on 10/20/2020 Review of Systems Review of Systems: All systems reviewed & are unremarkable except as noted in HPI and below Constitutional: Constitutional: Reports as per HPI and Reports no additional constitutional complaints Eyes: Eyes: Reports as per HPI and Reports no additional eye complaints ENT: Reports system reviewed and no additional complaints, except as documented and Reports Normal hearing present Cardiovascular: Cardiovascular: Reports no additional cardiovascular complaints Respiratory: Respiratory: Reports no additional respiratory complaints and Reports no additional respiratory complaints Gastrointestinal: Gastrointestinal: Reports as per HPI and Reports no additional gastrointestinal complaints Musculoskeletal: Musculoskeletal: Reports no additional musculoskeletal complaints Integumentary/Breasts: Skin/Breast: Reports system reviewed and no additional complaints, except as docu and Reports as per HPI Neurologic: Reports system reviewed and no additional complaints, except as documented, Reports as per HPI and Reports Normal hearing present Psychiatric: Psychiatric: Reports no additional psychiatric complaints and Reports as per HPI Endocrine: Endocrine: Reports no additional endocrine complaints Hematologic/Lymphatic: Hematologic/Lymphatic: Reports no additional hematologic/lymphatic complaints Allergic/Immunologic: Allergic/Immunologic: Reports no additional allergic/immunologic complaints [facility] Past Medical History Medical History (Updated 10/21/20 @ 00:00 by Estefania Rizvi NP) AAA (abdominal aortic aneurysm) Anemia Arthritis Back pain Bowel obstruction Cardiac defibrillator in place Carotid stenosis, bilateral Carpal tunnel syndrome Chronic diastolic CHF (congestive heart failure) Chronic renal insufficiency, stage III (moderate) COPD (chronic obstructive pulmonary disease) 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 DVT (deep venous thrombosis) Essential (primary) hypertension Gastro-esophageal reflux disease without esophagitis History of DVT (deep vein thrombosis) History of stent insertion of renal artery Hypothyroidism, unspecified Mixed hyperlipidemia Pancreatitis Peripheral vascular disease, unspecified Positive for macroalbuminuria Presence of combination internal cardiac defibrillator (ICD) and pacemaker Psoriasis Sleep apnea, unspecified (12/29/15) Intolerant of CPAP and only wears oxygen at night Type 2 diabetes mellitus with stage 3 chronic kidney disease, with long-term current use of insulin Umbilical hernia without obstruction and without gangrene Surgical History Surgical History (Updated 10/20/20 @ 23:49 by Estefania Rizvi NP) H/O abdominal surgery Revascularization to renal arteries and mesenteric artery H/O fasc
[2020-10-21] VITALS (17 sets, daily range): BP systolic 108–145; BP diastolic 53–71; PULSE 62–92; RESP 12–20; TEMP 36.6–37.1; O2SAT 77–100
[2020-10-21 00:11] LABS: Troponin I 0.183 ng/mL (0.000-0.034)
[2020-10-21] MEDS: carvediloL 6.25 MG TABLET PO ×3 (00:34→21:27)
[2020-10-21] MEDS: NITROGLYCERIN OINTMENT 1 INCH DOSE TRANSDERM ×2 (00:35→05:59)
[2020-10-21 05:18] LABS: Basophils Percent Auto 0.4 % (0.2-1.2); Eosinophils Absolute Auto 0.1 K/mm3 (0-0.3); Eosinophils Percent Auto 1.2 % (0-4.4); Hematocrit 35.1 % (42.0-52.0); Hemoglobin 10.8 g/dL (14.0-18.0); Immature Granulocyte Absolute 0.03 K/mm3 (0.00-0.031); Immature Granulocyte Percent A 0.3 % (0-0.5); Lymphocytes Percent Auto 16.2 % (18.3-44.2); Mean Corpuscular HGB Conc 30.8 g/dl (32-36); Mean Corpuscular Hemoglobin 32.4 pg (26-34); Mean Corpuscular Volume 105.4 fl (80-100); Mean Platelet Volume 10.8 fl (7.4-10.4); Monocytes Absolute Auto 0.9 K/mm3 (0.1-0.6); Monocytes Percent Auto 8.5 % (2.6-8.5); Neutrophils Absolute Auto 8.1 K/mm3 (1.3-6.7); Neutrophils Percent Auto 73.4 % (45.5-73.1); Platelet Count Result 189 k/mm3 (150-375); Red Blood Count 3.33 M/mm3 (4.6-6.20); Red Cell Distribution Width 14.4 % (11.5-14.5); White Blood Count 11.1 K/mm3 (4.5-10.0)
[2020-10-21 05:35] LABS: Alanine Aminotransferase 18 U/L (4-50); Albumin Level 3.6 g/dL (3.5-5.1); Alkaline Phosphatase 97 U/L (38-126); Anion Gap 7 mmol/L (8-16); Aspartate Amino Transferase 22 U/L (17-59); Bilirubin,Total 0.4 mg/dL (0.2-1.3); Blood Urea Nitrogen 40 mg/dL (9-20); CRP 1.4 mg/dL (<1.0); Calcium 9.1 mg/dL (8.4-10.2); Carbon Dioxide 30 mmol/L (22-30); Chloride 106 mmol/L (98-107); Estimated CRCL calculation 30 ml/min; Estimated Glomerular Filt Rate 29; Glucose 130 mg/dL (75-110); Magnesium 2.3 mg/dL (1.6-2.3); Potassium 4.4 mmol/L (3.4-5.0); Sodium 143 mmol/L (137-145)
[2020-10-21] MEDS: FUROSEMIDE INJ 40 MG/4 ML VIAL IV PUSH ×2 (05:59→18:15)
[2020-10-21] MEDS: LEVOTHYROXINE SODIUM 50 MCG TABLET PO (06:00)
[2020-10-21] MEDS: glipiZIDE 5 MG TABLET PO ×2 (06:00→18:14)
[2020-10-21 06:03] LABS: Hemoglobin A1C 5.5 % (<5.7)
[2020-10-21] MEDS: OPTI-GEN TAB 1 TABLET PO ×2 (09:52→18:14)
[2020-10-21] MEDS: CLOPIDOGREL BISULFATE 75 MG TABLET PO (09:52)
[2020-10-21] MEDS: SACUBITRIL/VALSARTAN 49-51 MG TABLET 1 TABLET PO ×2 (09:52→18:14)
[2020-10-21] MEDS: ATORVASTATIN 40 MG TABLET 80 MG PO (09:52)
[2020-10-21 11:35] LABS: Glucose Point of Care 91 (65-105)
[2020-10-21 12:39] LABS: Glucose Point of Care 143 (65-105)
--- NOTE | 2020-10-21 13:09 | PM.IMPN ---
Progress Note: A&P Assessment and Plan (1) CHF exacerbation: Qualifiers: Heart failure type: unspecified Qualified Code(s): I50.9 - Heart failure, unspecified Code(s): I50.9 - Heart failure, unspecified Status: Acute Assessment and Plan: Pt presents with SOB. CXR showing cardiomegaly with pulmonary edema. CTA chest showing no PE. BNP 20K. Lasix IV started. No recent Echo noted. Diastolic CHF listed but on Entresto so suspect systolic component. Continue Coreg, Entresto and Spironolactone. Check Echo. COVID swab ordered and is pending. Wean O2 as toelrated. (2) Elevated troponin: Code(s): R77.8 - Other specified abnormalities of plasma proteins Status: Acute Assessment and Plan: Troponin elevated to 0.197 but flat and suspect related to the CHF and CKD. Trop appears to be elevated chronically as well. EKG showing Left BBB but looks very similar to EKG from last year. (3) Chronic renal insufficiency, stage III (moderate): Code(s): N18.3 - Chronic kidney disease, stage 3 (moderate) Status: Acute Assessment and Plan: Cr 2.0 on admission and appears to be at his baseline. Repeat at 2.2. Will continue to monitor closely on IV Lasix. (4) Type 2 diabetes mellitus with stage 3 chronic kidney disease, with long-term current use of insulin: Code(s): E11.22 - Type 2 diabetes mellitus with diabetic chronic kidney disease; N18.3 - Chronic kidney disease, stage 3 (moderate); Z79.4 - vermin exterminator (current) use of insulin Status: Chronic Assessment and Plan: A1c 5.5. Glucose well controlled. Continue to monitor with Accu-Cheks AC and HS. Stop glipizide given his CKD and normal glucose. (5) Essential (primary) hypertension: Code(s): I10 - Essential (primary) hypertension Status: Acute Assessment and Plan: BP soft at times. Continue with Coreg, imdur and Entresto. Stop NTP. 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 No complaints of chest pain. Elevated Trop noted as above. Continue with Plavix, Lipitor, Coreg, Imdur. Consider addinig ASA. (7) Sleep apnea, unspecified: Onset Date: 12/29/15 Code(s): G47.30 - Sleep apnea, unspecified Status: Chronic Assessment and Plan: Patient uses oxygen at 2 L per nasal cannula and he is noncompliant with his CPAP machine. Wean O2 as toelrated (8) Mixed hyperlipidemia: Code(s): E78.2 - Mixed hyperlipidemia Status: Acute Assessment and Plan: LFTs normal. Continue with Lipitor. (9) Hypothyroidism, unspecified: Code(s): E03.9 - Hypothyroidism, unspecified Status: Acute Assessment and Plan: TSH normal. Continue levothyroxine (10) DVT prophylaxis: Code(s): Z29.9 - Encounter for prophylactic measures, unspecified Status: Acute Assessment and Plan: Lovenox Subjective Date/time seen: 10/21/20 13:09 Interval history: Date of service 10/21/20 75yo male with CHF, TITA and CKD on chronic O2 2L at night here for SOB. SOB is better. No CP. Does have pain in the chest when he coughs sometimes. Cough better. Good UOP. Exam Narrative: Exam Narrative: AF 98.2 145/57 71 14 92% 3L Gen - NARD lying semi-recumbent in bed Chest - distant but clear BS, nml RR CV - RRR S1/S2 Abd - soft, NT, +BS Ext - 1+ pedal edema Psych - Nml mood and affect Skin - Warm and dry Objective Data Vital Signs Vital Signs: Vital Signs - 24 hr 10/20/20 14:56 10/20/20 15:35 10/20/20 16:33 Temperature 99.7 F H Pulse Rate 106 H 103 H 87 Respiratory Rate 24 H 18 Blood Pressure 221/88 H 172/68 H Pulse Oximetry 100 98 10/20/20 20:52 10/20/20
[2020-10-21] MEDS: ISOSORBIDE MONONITRATE 30 MG TAB.ER.24H 60 MG PO (15:47)
[2020-10-21] MEDS: SPIRONOLACTONE 25 MG TABLET PO (15:48)
[2020-10-21 16:58] LABS: Glucose Point of Care 113 (65-105)
[2020-10-21 20:04] LABS: SARS-CoV-2 RNA PCR Negative
[2020-10-21 21:23] LABS: Glucose Point of Care 125 (65-105)
[2020-10-22] VITALS (16 sets, daily range): BP systolic 99–110; BP diastolic 48–57; PULSE 58–80; RESP 18–20; TEMP 35.9–36.6; O2SAT 92–100
--- NOTE | 2020-10-22 | ECHO_ITS ---
Patient Info Name: Jaime Morrell Age: 75 years : 1945 Gender: Male Ht: 66 in Wt: 220 lbs BSA: 2.20 m2 HR: 74 bpm BP: 108 / 48 mmHg Heart Rhythm: Sinus Rhythm Technical Quality: Good Exam Date: 10/22/2020 2:31 PM Exam Location: [facility] Patient Status: Inpatient Admit Date: 10/20/2020 Staff Ordering Physician: Estefania Rizvi NP Division Road Supervisor: Tom Linton RDCS Attending Provider: Rober Ng MD Referring Physician: Belkys MUSTAFA; Exam Type: CA echo dop color flow w con Study Info Indications I50.9 - Heart failure, unspecified Complete two-dimensional, color flow and Doppler transthoracic echocardiogram is performed with contrast to opacify the left ventricle and to improve the deliniation of the left ventricle endocardial borders. Contrast/Agitated Saline Contrast/Ag. Saline: Definity Amount: 3.00 ml Administered By: Sampson Hayes RN Existing IV Access: Yes History/Risk Factors CHF exacerbation; CAD w/ 5vCABG 1987 \T\ 1vCABG 2003, SOB/BERRIOS, AICD. Summary 1. Left ventricular chamber dimension is moderately enlarged. 2. Left ventricular systolic function is moderately reduced, estimated at 30-35%. 3. Definity contrast used to improve visualization. 4. The anterior wall contracts well. 5. The infero posterior segments are akinetic. 6. The lateral wall is hypodynamic. 7. Left atrial chamber dimension is moderately enlarged. 8. Trivial aortic and mitral regurgitation. 9. Compared with 2016 left ventricular systolic function has declined. Left Ventricle Left ventricular chamber dimension is moderately enlarged. Left ventricular systolic function is moderately reduced, estimated at 30-35%. The left ventricular diastolic function is grade I diastolic dysfunction. Definity contrast used to improve visualization. The anterior wall contracts well. The infero posterior segments are akinetic. The lateral wall is hypodynamic. Right Ventricle Right ventricular chamber dimension is normal. Left Atria Left atrial chamber dimension is moderately enlarged. Right Atria Right atrial chamber dimension is mildly enlarged. Aortic Valve The aortic valve is trileaflet. There is mild aortic valve sclerosis. There is trace aortic valve regurgitation. Pulmonic Valve The pulmonic valve is not well visualized. Mitral Valve The mitral valve has normal leaflets. There is trace mitral valve regurgitation. Tricuspid Valve The tricuspid valve leaflets are normal. Pericardium/Pleural The pericardium appears normal. Aorta The aortic root size at the sinus of Valsalva is normal. Left Ventricular Outflow Tract Name Value Normal LVOT 2D LVOT Diameter 2.09 cm LVOT Doppler LVOT Peak Gradient 2 mmHg LVOT Mean Gradient 1 mmHg LVOT VTI 15.36 cm LVOT VTI/AV VTI Ratio 0.67 LVOT Stroke Volume 52.60 ml LVOT CO 3.71 l/min L
[2020-10-22 05:06] LABS: Basophils Percent Auto 0.4 % (0.2-1.2); Eosinophils Absolute Auto 0.3 K/mm3 (0-0.3); Eosinophils Percent Auto 3.2 % (0-4.4); Hemoglobin 9.9 g/dL (14.0-18.0); Immature Granulocyte Absolute 0.04 K/mm3 (0.00-0.031); Immature Granulocyte Percent A 0.4 % (0-0.5); Lymphocytes Absolute Auto 1.54 K/mm3 (0.9-3.2); Lymphocytes Percent Auto 17.2 % (18.3-44.2); Mean Corpuscular HGB Conc 30.9 g/dl (32-36); Mean Corpuscular Hemoglobin 31.7 pg (26-34); Mean Corpuscular Volume 102.6 fl (80-100); Mean Platelet Volume 10.9 fl (7.4-10.4); Monocytes Absolute Auto 0.8 K/mm3 (0.1-0.6); Monocytes Percent Auto 8.9 % (2.6-8.5); Neutrophils Absolute Auto 6.3 K/mm3 (1.3-6.7); Neutrophils Percent Auto 69.9 % (45.5-73.1); Platelet Count Result 188 k/mm3 (150-375); Red Blood Count 3.12 M/mm3 (4.6-6.20); Red Cell Distribution Width 14.1 % (11.5-14.5)
[2020-10-22 05:21] LABS: Albumin Level 3.5 g/dL (3.5-5.1); Anion Gap 7 mmol/L (8-16); Blood Urea Nitrogen 49 mg/dL (9-20); Calcium 8.9 mg/dL (8.4-10.2); Carbon Dioxide 32 mmol/L (22-30); Chloride 102 mmol/L (98-107); Estimated CRCL calculation 32 ml/min; Estimated Glomerular Filt Rate 31; Glucose 78 mg/dL (75-110); Magnesium 2.3 mg/dL (1.6-2.3); Phosphorus 4.6 mg/dL (2.5-4.5); Potassium 4.2 mmol/L (3.4-5.0); Sodium 141 mmol/L (137-145)
[2020-10-22] MEDS: FUROSEMIDE INJ 40 MG/4 ML VIAL IV PUSH (06:57)
[2020-10-22] MEDS: LEVOTHYROXINE SODIUM 50 MCG TABLET PO (06:57)
[2020-10-22] MEDS: ATORVASTATIN 40 MG TABLET 80 MG PO (09:10)
[2020-10-22] MEDS: CLOPIDOGREL BISULFATE 75 MG TABLET PO (09:10)
[2020-10-22] MEDS: ISOSORBIDE MONONITRATE 30 MG TAB.ER.24H 60 MG PO (09:10)
[2020-10-22] MEDS: OPTI-GEN TAB 1 TABLET PO (09:10)
[2020-10-22] MEDS: SACUBITRIL/VALSARTAN 49-51 MG TABLET 1 TABLET PO (09:11)
[2020-10-22] MEDS: carvediloL 6.25 MG TABLET PO (09:11)
[2020-10-22 09:21] LABS: Glucose Point of Care 76 (65-105)
[2020-10-22 11:51] LABS: Glucose Point of Care 173 (65-105)
[2020-10-22] MEDS: PERFLUTREN LIPID MICROSPHERES 1.5 ML VIAL DILUTED TO 10 ML TOTAL VOLUME (14:58)
--- NOTE | 2020-10-22 15:30 | PCRCNOTE ---
HOME O2 EVAL COMPLETE, NO REQUIREMENTS
--- NOTE | 2020-10-22 16:54 | PM.DS ---
DS: Admitting Diagnosis Admitting Diagnosis Admitting Diagnosis: CHF exacerbation DS: Discharge Diagnosis Discharge Diagnosis (1) CHF exacerbation: Qualifiers: Heart failure type: unspecified Qualified Code(s): I50.9 - Heart failure, unspecified Code(s): I50.9 - Heart failure, unspecified Status: Acute Assessment and Plan: Pt presents with SOB. CXR showing cardiomegaly with pulmonary edema. CTA chest showing no PE. BNP 20K. Lasix IV started. Diastolic CHF listed but on Entresto so suspect systolic component. We continued Coreg, Entresto and Spironolactone. Echo pending. COVID swab was negative. Able to wean to room air. (2) Elevated troponin: Code(s): R77.8 - Other specified abnormalities of plasma proteins Status: Acute Assessment and Plan: Troponin elevated to 0.197 but flat and suspect related to the CHF and CKD. Trop appears to be elevated chronically as well. EKG showing Left BBB but looks very similar to EKG from last year. (3) Chronic renal insufficiency, stage III (moderate): Code(s): N18.3 - Chronic kidney disease, stage 3 (moderate) Status: Acute Assessment and Plan: Cr 2.0 on admission and appears to be at his baseline. Repeat at 2.1 with diuretics. (4) Type 2 diabetes mellitus with stage 3 chronic kidney disease, with long-term current use of insulin: Code(s): E11.22 - Type 2 diabetes mellitus with diabetic chronic kidney disease; N18.3 - Chronic kidney disease, stage 3 (moderate); Z79.4 - vermin exterminator (current) use of insulin Status: Chronic Assessment and Plan: A1c 5.5. Glucose remained well controlled. We monitored with Accu-Cheks AC and HS. We stopped the glipizide given his CKD and normal glucose. (5) Essential (primary) hypertension: Code(s): I10 - Essential (primary) hypertension Status: Acute Assessment and Plan: BP soft at times. We continued with Coreg, imdur and Entresto and his BP tolerated this. 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 No complaints of chest pain. Elevated Trop noted as above. We continued with Plavix, Lipitor, Coreg, Imdur. (7) Sleep apnea, unspecified: Onset Date: 12/29/15 Code(s): G47.30 - Sleep apnea, unspecified Status: Chronic Assessment and Plan: Patient uses oxygen at 2 L per nasal cannula at night and he is noncompliant with his CPAP machine. Weaned O2 off during the day (8) Mixed hyperlipidemia: Code(s): E78.2 - Mixed hyperlipidemia Status: Acute Assessment and Plan: LFTs normal. We continued with Lipitor. (9) Hypothyroidism, unspecified: Code(s): E03.9 - Hypothyroidism, unspecified Status: Acute Assessment and Plan: TSH normal. We continued levothyroxine DS: Summary Hospital Course Reason for hospitalization: 75yo male with CHF, TITA and CKD on chronic O2 2L at night here for SOB. Please see H&P for details Hospital Course: Please see above for details about the hospital course. Status at Discharge Cognitive/behavioral status at discharge: PATIENT IS STABLE FOR DISCHARGE Time Spent with Patient Time attestation: Total time spent providing and/or coordinating discharge services:35 minutes Time spent: Greater than 30 minutes Exam Narrative: Exam Narrative: Slept well. Voiding well. Chronic cough but looser now. Walking in the room. Eating okay. AF 97.8 99/57 62 18 99% 2L Gen - NARD Chest - few basilar rhonchi o/w distant clear BS CV - RRR S1/S2 Abd - soft, NT, +BS Ext - trace pedal edema Psych - Nml mood and affect Skin - Warm and dry DS: Data Data Completed and Pending Labs on day of discharge: Labs
--- NOTE | 2020-10-26 15:09 | PC.NURSE ---
ECHO results given to Dr. Ng.
--- NOTE | 2020-11-02 07:31 | PC.NURSE ---
Echo report shwon to Dr. Ng and faxed to Dr. Gates.
== END 2020-10-22 18:09 | disposition home or self-care (01) | DRG 291 ==
LOC: ANHED 15:16 → ANHIMU 20:30
PROVIDERS: Nurse Practitioner; Admitting Provider Internal Medicine; Emergency Provider Emergency Medicine; PCP Family Medicine; Visit Provider Internal Medicine
DX: I13.0 Hypertensive heart and chronic kidney disease with heart failure and stage 1 through stage 4 chronic kidney disease, or unspecified chronic kidney disease (principal); I50.33 Acute on chronic diastolic (congestive) heart failure; I25.728 Atherosclerosis of autologous artery coronary artery bypass graft(s) with other forms of angina pectoris; E11.22 Type 2 diabetes mellitus with diabetic chronic kidney disease; N18.30 Chronic kidney disease, stage 3 unspecified; Z20.828 Contact with and (suspected) exposure to other viral communicable diseases; R77.8 Other specified abnormalities of plasma proteins; K21.9 Gastro-esophageal reflux disease without esophagitis; E11.51 Type 2 diabetes mellitus with diabetic peripheral angiopathy without gangrene; G47.33 Obstructive sleep apnea (adult) (pediatric); E78.2 Mixed hyperlipidemia; J44.9 Chronic obstructive pulmonary disease, unspecified; E03.9 Hypothyroidism, unspecified; Z28.21 Immunization not carried out because of patient refusal; Z86.718 Personal history of other venous thrombosis and embolism; Z87.891 Personal history of nicotine dependence; Z79.899 Other long term (current) drug therapy; Z88.0 Allergy status to penicillin; Z95.810 Presence of automatic (implantable) cardiac defibrillator; Z99.81 Dependence on supplemental oxygen
CPT/HCPCS: 36415; 71046; 71275; 80048; 80053; 80069; 83036; 83735; 83880; 84443; 84484; 85025; 85055; 86140; 87635; 93005; 93971; 94618; 96374; 96375; 99285; A9270; C8929; C9803; G0378; J1940; Q9957; Q9967; U0003

== ENCOUNTER → 2021-01-19 12:55 | Outpatient (CLI) | payer MEDICARE, SELFPAY ==
--- NOTE | ~2021-01-19 | XR_ITS ---
EXAMINATION: XR foot LT min 3V DATE: 01/19/2021 13:21 INDICATION: Left foot pain TECHNIQUE: Dorsoplantar, lateral, and 2 oblique views of the left foot were obtained. COMPARISON: None. FINDINGS: There is a questionable tiny fracture at the lateral base of the second distal phalanx. No additional fracture is suspected. Mild osteoarthritis is noted in multiple interphalangeal joints. A plantar calcaneal enthesophyte is noted. IMPRESSION: 1. Possible fracture at the base of the second distal phalanx. Reviewed, dictated and finalized at location A. OWER DEVELOPMENT SPECIALIST MANAGER
== END ==
PROVIDERS: PCP Family Medicine; Visit Provider Family Medicine
DX: M79.672 Pain in left foot (principal)
CPT/HCPCS: 73630

== ENCOUNTER → 2021-01-24 09:34 | Outpatient (CLI) | payer MEDICARE, SELFPAY ==
--- NOTE | ~2021-01-24 | XR_ITS ---
EXAMINATION: XR hip LT min 2V DATE: 01/24/2021 10:10 INDICATION: Left hip pain. TECHNIQUE: 2 views of left hip were obtained. COMPARISON: None. FINDINGS: Bone alignment is normal. No fracture. There is severe left hip osteoarthritis. There are s urgical clips in the thighs. IMPRESSION: 1. Severe left hip osteoarthritis. Reviewed, dictated and finalized at location A.
== END ==
PROVIDERS: PCP Family Medicine; Visit Provider Physical Medicine & Rehabilitation Pain Medicine
DX: M16.12 Unilateral primary osteoarthritis, left hip (principal)
CPT/HCPCS: 73502

== ENCOUNTER → 2021-01-28 11:13 | Outpatient (CLI) | payer MEDICARE, SELFPAY ==
--- NOTE | ~2021-01-28 | CT_ITS ---
EXAMINATION: CT lumbar spine wo [facility] EXAM DATE: 01/28/2021 11:32 INDICATION: Spinal stenosis lumbosacral region. Low back and left hip pain. TECHNIQUE: Spiral CT of the lumbar spine was performed without contrast. Axial, coronal and sagittal images were reviewed. The dose-length product (DLP) for this examination was 896.23 mGy-cm. The e xposure was tailored according to patient size (auto mA exposure control), and iterative reconstructi on (ASIR) was used as additional dose reduction technique. There is no prior study for comparison. FINDINGS: Mild diffuse lumbar disc disease. There are no acute fractures identified. No spondylolysis . The vertebral bodies are aligned in the AP dimension. There are no osteoblastic or osteolytic lesio ns identified. Superior mesenteric artery and right renal artery stents. Probable aortoiliac endograf t. Sacrum intact. Level by level evaluation: T12-L1: Disc does not extend beyond the endplate margin. Facet arthropathy: Minimal. Neural foraminal stenosis: No stenosis. Central canal stenosis: No stenosis. L1-L2: There is a mild diffuse disc bulge. Facet arthropathy: Minimal. Neural foraminal stenosis: No stenosis. Central canal stenosis: No stenosis. L2-L3: There is a mild diffuse disc bulge. Facet arthropathy: Mild. Neural foraminal stenosis: No stenosis. Central canal stenosis: Mild. L3-L4: There is a mild to moderate diffuse disc bulge. Facet arthropathy: Mild to moderate left, mild right. Neural foraminal stenosis: Mild bilateral. Central canal stenosis: Moderate. L4-L5: There is a mild to moderate diffuse disc bulge. Facet arthropathy: Moderate. Neural foraminal stenosis: Mild to moderate bilateral. Central canal stenosis: Moderate. L5-S1: There is a mild diffuse disc bulge. Facet arthropathy: Bulky but fused right, mild left. Neural foraminal stenosis: No stenosis. Central canal stenosis: No stenosis. IMPRESSION: 1. L3-4 and L4-5 moderate central canal stenosis. 2. Less spondylosis other levels. Reviewed, dictated and finalized at location A.
== END ==
PROVIDERS: PCP Family Medicine; Visit Provider Physical Medicine & Rehabilitation Pain Medicine
DX: M48.07 Spinal stenosis, lumbosacral region (principal)
CPT/HCPCS: 72131

== ENCOUNTER 2021-06-23 15:05 | Outpatient (CLI) | payer MEDICARE, SELFPAY ==
--- NOTE | ~2021-06-23 | US_ITS ---
EXAMINATION: US venous doppler LE RT DATE: 06/23/2021 15:39 INDICATION: Right lower limb swelling TECHNIQUE: Bonilla scale images without and with compression and Doppler images of the right lower extre mity veins were obtained. COMPARISON: 10/21/2020 FINDINGS: The right common femoral vein, profunda femoral vein, femoral vein, popliteal vein, peronea l trunk, posterior tibial veins, and greater saphenous vein are patent. IMPRESSION: 1. Patent right lower extremity veins. No evidence of deep venous thrombosis. Reviewed, dictated and finalized at location B.
== END 2021-06-23 15:06 | disposition home or self-care (01) ==
PROVIDERS: PCP Family Medicine; Visit Provider Family Medicine
DX: M79.89 Other specified soft tissue disorders (principal)
CPT/HCPCS: 93971

== ENCOUNTER 2021-08-01 20:13 | Inpatient (IN) | payer MEDICARE, SELFPAY ==
--- NOTE | ~2021-08-01 | XR_ITS ---
EXAMINATION: XR chest 2V DATE: 08/01/2021 21:05 INDICATION: Shortness of breath. COPD. TECHNIQUE: PA and lateral views of the chest were obtained. COMPARISON: Chest radiograph and CT dated 10/20/2020 FINDINGS: Blunting at the posterior sulci and right costophrenic angle consistent with small right and tiny lef t pleural effusions. No other airspace opacities, pulmonary edema, pleural effusion or pneumothorax. Calcified nodule at the right lung base consistent with old granulomatous disease. Cardiomegaly. Medi an sternotomy wires and mediastinal surgical clips are seen, likely from prior coronary artery bypass grafting. Single lead pacemaker/AICD seen with lead tip projecting over the apex of the right ventri jose maria.. There is calcified atherosclerosis of the thoracic and visualized abdominal aorta with stenting at the superior mesenteric and right renal arteries. Median sternotomy wires and mediastinal surgica l clips are seen, likely from prior coronary artery bypass grafting. IMPRESSION: 1. Small right and tiny left pleural effusions. 2. Cardiomegaly. Reviewed, dictated and finalized at location A.
--- NOTE | ~2021-08-01 | XR_ITS ---
EXAMINATION: XR foot RT 2V DATE: 08/04/2021 11:05 INDICATION: Right foot pain. TECHNIQUE: 2 views of right foot were obtained. COMPARISON: None. FINDINGS: Bone alignment is normal. No fracture. There is mild flattening of head of second metatarsa l, consistent with osteonecrosis (Freiberg's infraction). There is mild osteoarthritis of some of the interphalangeal joints. There are enthesophytes at the posterior and plantar aspects of calcaneal tu berosity. IMPRESSION: 1. Mild polyarticular osteoarthritis. Reviewed, dictated and finalized at location A.
--- NOTE | 2021-08-01 20:15 | ECG_ITS ---
Measurements Intervals Jackson Rate: 72 P: 15 DC: 154 QRS: 14 QRSD: 133 T: 175 QT: 409 QTc: 450 Interpretive Statements SINUS RHYTHM VENTRICULAR PREMATURE COMPLEX LEFT BUNDLE BRANCH BLOCK INFERIOR INFARCT, AGE INDETERMINATE BASELINE ARTIFACT- I, II, AVR, AVL, AVF ABNORMAL ECG Electronically Signed On 08-02-2021 6:31:10 CDT by Leon Mckeon D.O.
[2021-08-01 20:25] VITALS: BP 133/55; PULSE 72; RESP 18; TEMP 37; O2SAT 96
[2021-08-01 20:39] LABS: Basophils Percent Auto 0.3 % (0.2-1.2); Eosinophils Absolute Auto 0.2 K/mm3 (0-0.3); Eosinophils Percent Auto 2.7 % (0-4.4); Hematocrit 33.6 % (42.0-52.0); Hemoglobin 10.2 g/dL (14.0-18.0); Immature Granulocyte Absolute 0.02 K/mm3 (0.00-0.031); Immature Granulocyte Percent A 0.2 % (0-0.5); Lymphocytes Absolute Auto 1.31 K/mm3 (0.9-3.2); Lymphocytes Percent Auto 14.7 % (18.3-44.2); Mean Corpuscular HGB Conc 30.4 g/dl (32-36); Mean Corpuscular Hemoglobin 30.9 pg (26-34); Mean Corpuscular Volume 101.8 fl (80-100); Mean Platelet Volume 10.6 fl (7.4-10.4); Monocytes Absolute Auto 0.8 K/mm3 (0.1-0.6); Monocytes Percent Auto 8.6 % (2.6-8.5); Neutrophils Absolute Auto 6.6 K/mm3 (1.3-6.7); Neutrophils Percent Auto 73.5 % (45.5-73.1); Platelet Count Result 173 k/mm3 (150-375); Red Cell Distribution Width 13.2 % (11.5-14.5); White Blood Count 8.9 K/mm3 (4.5-10.0)
[2021-08-01 20:50] LABS: Anion Gap 12 mmol/L (8-16); Blood Urea Nitrogen 40 mg/dL (9-20); Calcium 9.4 mg/dL (8.4-10.2); Carbon Dioxide 23 mmol/L (22-30); Chloride 108 mmol/L (98-107); Estimated CRCL calculation 27 ml/min; Estimated Glomerular Filt Rate 28; Glucose 123 mg/dL (65-110); Potassium 4.1 mmol/L (3.4-5.0); Sodium 143 mmol/L (137-145)
[2021-08-01 20:59] LABS: NT Pro B Type Natriuretic Pept 29000 pg/mL (5-100)
[2021-08-01] MEDS: FUROSEMIDE INJ 40 MG/4 ML VIAL IV PUSH (22:49)
[2021-08-01 23:08] LABS: Troponin I 0.056 ng/mL (0.000-0.034)
--- NOTE | 2021-08-01 23:27 | ED.GENADULT ---
HPI - General Adult General Chief complaint: Shortness of Breath/Dyspnea Stated complaint: difficulty breathing Time Seen by Provider: 08/01/21 22:19 History of Present Illness HPI narrative: Patient is a 76-year-old gentleman who presents the emergency department with chief complaint of shortness of breath. Patient reports he has history of congestive heart failure reports that normally takes Lasix 40 mg twice daily. The patient states for the last 2 days he has been having increasing shortness of breath with exertion patient states also has noticed that his lower extremities have been more swollen especially his right leg that he describes as tight whenever he tries to move his foot. Related Data Home Medications Medication Instructions Recorded Confirmed atorvastatin 80 mg tablet 80 mg PO DAILY 09/23/19 10/20/20 isosorbide mononitrate 30 mg 60 mg PO DAILY tablet 09/23/19 10/20/20 tablet,extended release 24 hr Entresto 1 tablet PO BID 01/08/20 10/20/20 PreserVision AREDS-2 1 cap PO BID 10/20/20 10/20/20 aspirin 81 mg tablet,delayed 81 mg PO DAILY 01/19/21 release carvedilol 12.5 mg tablet 12.5 mg PO Q12H 01/19/21 furosemide 40 mg tablet 40 mg PO .COMPLEX tablet 01/19/21 Allergies Allergy/AdvReac Type Severity Reaction Status Date / Time Penicillins Allergy Severe unknown Verified 06/10/21 14:23 Review of Systems Review of Systems: A 10 system review of systems was completed on the patient and is negative except for what is stated in the HPI. Nursing and ancillary documentation was reviewed. 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 DVT (deep venous thrombosis) Essential (primary) hypertension Gastro-esophageal reflux disease without esophagitis History of DVT (deep vein thrombosis) History of stent insertion of renal artery Hypothyroidism, unspecified Mixed hyperlipidemia Pancreatitis Peripheral vascular disease, unspecified Positive for macroalbuminuria Presence of combination internal cardiac defibrillator (ICD) and pacemaker Psoriasis Sleep apnea, unspecified (12/29/15) Intolerant of CPAP and only wears oxygen at night Type 2 diabetes mellitus with stage 3 chronic kidney disease, with long-term current use of insulin Umbilical hernia without obstruction and without gangrene Surgical History Surgical History H/O abdominal surgery Revascularization to renal arteries and mesenteric artery H/O fasciotomy Right leg History of embolectomy Right leg Hx of CABG Initially 5 vessel CABG and later on he had 1 that was redone now for those vessels are occluded he has collateral only 1 vessel is pain Hx of cardiac catheterization Multiple times Hx of cataract surgery May 2020 Hx of tonsillectomy S/P carotid endarterectomy Family History Family History Mother Hypertension Family history of coronary artery disease Father Acute myocardial infarction Family history of coronary artery disease Sibling Heart disease Hyperlipidemia Social History Social History Social History: The patient quit smoking and drinking about 30 years ago. He was never and has no children. He retired from the [employer] and then was in [employer]. He lives home alone. His nephew is a durable power lighting fixtures decorator for healthcare. The patient desires to be a full code. Smoking packs per
[2021-08-02] VITALS (11 sets, daily range): BP systolic 123–171; BP diastolic 44–75; PULSE 69–86; RESP 16–20; TEMP 36.5–36.9; O2SAT 95–99; BMI 31.0
--- NOTE | 2021-08-02 | ECHO_ITS ---
Patient Info Name: Jaime Morrell Age: 76 years : 1945 Gender: Male Ht: 66 in Wt: 192 lbs BSA: 2.04 m2 HR: 74 bpm BP: 160 / 50 mmHg Heart Rhythm: Sinus Rhythm Exam Date: 08/02/2021 11:18 AM Exam Location: [facility] Patient Status: Inpatient Admit Date: 08/01/2021 Staff Ordering Physician: Landy Murray MD [employer] Team Member: Matt Treadwell, GAUDENCIO, RT Attending Provider: Landy Murray MD Referring Physician: Trevor NICHOLE; Exam Type: CA echo dop color flow w con Study Info Indications I50.9 - Heart failure, unspecified Complete two-dimensional, color flow and Doppler transthoracic echocardiogram is performed with contrast to opacify the left ventricle and to improve the deliniation of the left ventricle endocardial borders. Summary 1. Technically difficult study with limited views. 2. Left ventricular systolic function is moderately reduced, estimated at 30-35% with hypokinesis of the mid to basal anterolateral, inferior, anterior, and basal inferoseptal arroyo with relative sparing of the apex. 3. There is mildly increased left ventricular wall thickness. 4. Left atrial chamber dimension is moderately enlarged. 5. There is mild tricuspid valve regurgitation. 6. Severe pulmonary hypertension, estimated pulmonary arterial systolic pressure is 65 mmHg. 7. Documented color-flow Doppler patterns appear to be consistent with coronary flow seen in several views over myocardium. Low velocity flow is not consistent with ventricular septal defect. Left Ventricle Left ventricular chamber dimension is normal. Left ventricular systolic function is moderately reduced, estimated at 30-35% with hypokinesis of the mid to basal anterolateral, inferior, anterior, and basal inferoseptal arroyo with relative sparing of the apex. There is mildly increased left ventricular wall thickness. The left ventricular diastolic function is grade II diastolic dysfunction. Technically difficult study with limited views. Right Ventricle Right ventricular chamber dimension is not well visualized. Right ventricular systolic function is reduced. Linear artifact in right ventricle suggestive of catheter(s), pacemaker lead(s), or ICD lead(s). Left Atria Left atrial chamber dimension is moderately enlarged. Right Atria Right atrial chamber dimension is not well visualized. Linear artifact in the right atrium suggestive of catheter(s), pacemaker lead(s), or ICD lead(s). Aortic Valve The aortic valve is probable trileaflet. There is mild aortic valve sclerosis. There is no aortic valve stenosis. There is mild aortic valve regurgitation. Pulmonic Valve The pulmonic valve is not well visualized. There is mild pulmonic regurgitation. Mitral Valve The mitral valve has normal leaflets. There is mild mitral valve regurgitation. The mitral valve annulus is mildly calcified. Tricuspid Valve The tricuspid valve leaflets are normal. There is mild tricuspid valve regurgitation. Severe pulmonary hypertension, estimated pulmonary arterial systolic pressure is 65 mmHg. Pericardium/Pleural The pericardium appears not well visualized. There is no pericardial effusion. Inferior Vena Cava Normal inferior vena cava with >50% collapse upon inspiration consistent with normal right atrial pressure, 5 mmHg. Aorta The aortic root size at the sinus of Valsalva is normal. There is mild aortic atherosclerosis. Left Ventricular Outflow Tract
[2021-08-02 01:18] LABS: Troponin I 0.057 ng/mL (0.000-0.034)
--- NOTE | 2021-08-02 05:09 | PM.IMHP ---
H&P: HPI History of Present Illness Date/Time: 08/02/21 05:09 Chief Complaint: SHORTNESS OF BREATH Narrative: THIS IS A 76-YEAR-OLD MALE WITH PAST MEDICAL HISTORY SIGNIFICANT FOR CONGESTIVE HEART FAILURE, CHRONIC KIDNEY DISEASE, HYPERTENSION, DYSLIPIDEMIA. CORONARY ARTERY DISEASE SPOT STATUS POST CORONARY ARTERY BYPASS GRAFTING FOR 5 VESSEL DISEASE, STENT PLACEMENT, AAA REPAIR, OBSTRUCTIVE SLEEP APNEA NONCOMPLIANCE WITH CPAP, PERIPHERAL VASCULAR DISEASE STATUS POST STENT PLACEMENT. PATIENT PRESENTED TODAY TO THE EMERGENCY ROOM DUE TO WORSENING SHORTNESS OF BREATH INITIALLY WITH EXERTION AND NOW AT REST AND WHEN LAYING DOWN HE HAS NOT BEEN ABLE TO WALK EVEN SHORT DISTANCE WITHIN HIS HOUSE AND HAS NOT BEEN ABLE TO LAY FLAT IN THE BED HE ALSO NOTICED INCREASED SWELLING OF BILATERAL LOWER EXTREMITIES BUT DENIES ANY CHEST PAIN ANY COUGH ANY SPUTUM PRODUCTION SIGNIFICANT PND AND ORTHOPNEA HE USES SUPPLEMENTAL OXYGEN AT NIGHTTIME 2 L BY NASAL CANNULA. PRELIMINARY WORKUP WAS SIGNIFICANT FOR ELEVATED TROPONIN, ELEVATED BRAIN NATRIURETIC PEPTIDE DECISION HAS BEEN MADE TO ADMIT THE PATIENT FOR FURTHER MANAGEMENT AND TREATMENT. Review of Systems Review of Systems: SHORTNESS OF BREATH AND LEG SWELLING Constitutional: Constitutional: Denies chills, Denies fatigue, Denies fever(s), Denies lethargy, Denies malaise and Denies weakness Eyes: Eyes: Denies change in vision ENT: Denies dysphagia, Denies dizziness, Denies nasal congestion, Denies nasal discharge, Denies nasal obstruction and Denies odynophagia Cardiovascular: Cardiovascular: Denies chest pain at rest, Denies chest pain with activity, Reports pedal edema, Denies claudication, Reports leg edema, Denies lightheadedness, Denies radiating jaw, neck or arm pain, Denies palpitations, Reports dyspnea, Reports dyspnea on exertion and Reports orthopnea Respiratory: Respiratory: Denies cough Gastrointestinal: Gastrointestinal: Denies abdominal pain, Denies diarrhea, Denies nausea and Denies vomiting Genitourinary: Genitourinary: Reports no additional male genitourinary complaints Musculoskeletal: Musculoskeletal: Reports no additional musculoskeletal complaints Integumentary/Breasts: Skin/Breast: Reports system reviewed and no additional complaints, except as docu Neurologic: Reports system reviewed and no additional complaints, except as documented Psychiatric: Psychiatric: Reports no additional psychiatric complaints Endocrine: Endocrine: Reports no additional endocrine complaints Hematologic/Lymphatic: Hematologic/Lymphatic: Reports no additional hematologic/lymphatic complaints Allergic/Immunologic: Allergic/Immunologic: Reports no additional allergic/immunologic complaints PMFSH Past Medical History Medical History (Updated 08/02/21 @ 05:20 by Landy Murray MD) AAA (abdominal aortic aneurysm) Anemia Arthritis Back pain Bowel obstruction Cardiac defibrillator in place Carotid stenosis, bilateral Carpal tunnel syndrome Chronic diastolic CHF (congestive heart failure) Chronic renal insufficiency, stage III (moderate) COPD (chronic obstructive pulmonary disease) 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 DVT (deep venous thrombosis) Essential (primary) hypertension Gastro-esophageal reflux disease without esophagitis History of DVT (deep vein thrombosis) History of stent insertion of renal artery Hypothyroidism, unspecified Mixed hyperlipidemia Pancreatitis Peripheral vascular disease, unspecified Positive for macroalbuminuria Presence of combination internal cardiac defibrillator (ICD) and pacemaker Psoriasis Sleep apnea, unspecified (12/29/15) Intolerant of CPAP and only wears oxygen at night Type 2 diabetes mellitus with stage 3 chronic kidney disease, with long-term current use of insulin Umbilical hernia without obstruction and without gangrene Surgical History Surgical History
[2021-08-02 06:00] LABS: Troponin I 0.045 ng/mL (0.000-0.034)
[2021-08-02] MEDS: LEVOTHYROXINE SODIUM 50 MCG TABLET PO (06:44)
[2021-08-02] MEDS: INSULIN GLARGINE (*BKC) 100 UNITS/ML SUB-Q (08:50)
[2021-08-02] MEDS: FUROSEMIDE INJ 40 MG/4 ML VIAL IV PUSH ×2 (08:51→18:02)
[2021-08-02] MEDS: ISOSORBIDE MONONITRATE 60 MG TAB.ER.24H PO (08:51)
[2021-08-02] MEDS: CHOLECALCIFEROL 1,000 UNITS TABLET 5000 UNITS PO (08:52)
[2021-08-02] MEDS: ASPIRIN 81 MG ENTERIC TABLET PO (08:52)
[2021-08-02] MEDS: CLOPIDOGREL BISULFATE 75 MG TABLET PO (08:52)
[2021-08-02] MEDS: OPTI-GEN TAB 1 TABLET PO ×2 (08:52→18:32)
[2021-08-02] MEDS: ATORVASTATIN 40 MG TABLET 80 MG PO (08:52)
[2021-08-02] MEDS: carvediloL 12.5 MG TABLET PO ×2 (08:53→18:02)
[2021-08-02] MEDS: SACUBITRIL/VALSARTAN 49-51 MG TABLET 1 TABLET PO ×2 (08:53→20:51)
[2021-08-02 09:45] LABS: Glucose Point of Care 87 mg/dl (65-105)
[2021-08-02 11:42] LABS: Glucose Point of Care 179 mg/dl (65-105)
[2021-08-02] MEDS: PERFLUTREN LIPID MICROSPHERES 1.5 ML VIAL DILUTED TO 10 ML TOTAL VOLUME IV PUSH (11:52)
--- NOTE | 2021-08-02 13:04 | PM.IMPN ---
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clerosis of autologous artery coronary artery bypass graft(s) with other forms of angina pectoris Status: Acute Assessment and Plan: RESUME HOME MEDS PATIENT HAD A STENT PLACED IN 2013 (4) Elevated troponin: Code(s): R77.8 - Other specified abnormalities of plasma proteins Status: Acute Assessment and Plan: CHRONICALLY ELEVATED SUPPORTIVE CARE (5) Peripheral vascular disease, unspecified: Code(s): I73.9 - Peripheral vascular disease, unspecified Status: Acute Assessment and Plan: UNCHANGED CONTINUE TO MONITOR CONTINUE PLAVIX AND ASPIRIN (6) CKD (chronic kidney disease), stage III: Code(s): N18.3 - Chronic kidney disease, stage 3 (moderate) Status: Acute Assessment and Plan: BUN AND CREATININE AT PATIENT'S BASELINE CONTINUE TO MONITOR (7) Type 2 diabetes mellitus with stage 3 chronic kidney disease, with long-term current use of insulin: Code(s): E11.22 - Type 2 diabetes mellitus with diabetic chronic kidney disease; N18.3 - Chronic kidney disease, stage 3 (moderate); Z79.4 - termite control technician (current) use of insulin Status: Chronic Assessment and Plan: DIET CONTROLLED (8) Gastro-esophageal reflux disease without esophagitis: Code(s): K21.9 - Gastro-esophageal reflux disease without esophagitis Status: Acute Assessment and Plan: PPI NEEDED Subjective Date/time seen: 08/02/21 13:04 Interval history: 76-YEAR-OLD MALE WITH PAST MEDICAL HISTORY SIGNIFICANT FOR CONGESTIVE HEART FAILURE, CHRONIC KIDNEY DISEASE, HYPERTENSION, DYSLIPIDEMIA. CORONARY ARTERY DISEASE SPOT STATUS POST CORONARY ARTERY BYPASS GRAFTING FOR 5 VESSEL DISEASE, STENT PLACEMENT, AAA REPAIR, OBSTRUCTIVE SLEEP APNEA NONCOMPLIANCE WITH CPAP, PERIPHERAL VASCULAR DISEASE STATUS POST STENT PLACEMENT. Admitted with Chf exacerbation Review of Systems Review of Systems: All systems reviewed & are unremarkable except as noted in HPI and below Exam Narrative: overweight male swollen abdomen and legs Chest: Chest palpation & inspection: abnormal inspection of the chest (MID STERNOTOMY SCAR) Breast/axilla inspection: abnormal inspection of the breast (GYNECOMASTIA) Resp: Effort & Inspection: normal respiratory effort and able to speak in complete sentences Auscultation: clear to auscultation bilaterally, no crackles, no rales, no rhonchi, no wheezes and diminished lung sounds Cardio: Jugular venous distension: no JVD Rate: regular rate Rhythm: regular rhythm Heart sounds: S1 normal heart sound present and S2 normal heart sound present GI: Inspection: scar (MID ABDOMINAL SURGICAL SCAR) Skin: General skin exam: pallor Rashes: no rashes Wounds: no wounds Neuro: General: patient oriented x3 and CN's II-XI intact bilaterally Cranial nerves: Yes CN's II-XII intact bilaterally and Yes Equal, round and reactive pupils present Cognition (Neuro): normal cognition Speech: normal speech Gait exam (Neuro): Normal gait present Motor exam (neuro): 5/5 motor strength present throughout Extrem: General: edema bilateral (3+) Objective Data Vital Signs Vital Signs: Vital Signs - 24 hr 08/01/21 20:25 08/02/21 01:30 08/02/21 02:56 Temperature 37.0 C 36.6 C 36.6 C Pulse Rate 72 75 77 Respiratory Rate 18 19 20 Blood Pressure 133/55 L 163/70 H 171/75 H Pulse
[2021-08-02 16:39] LABS: Glucose Point of Care 149 mg/dl (65-105)
[2021-08-02 20:33] LABS: Glucose Point of Care 174 mg/dl (65-105)
[2021-08-03] VITALS (7 sets, daily range): BP systolic 123–150; BP diastolic 44–60; PULSE 64–78; RESP 18–20; TEMP 35.8–36.6; O2SAT 97–100
[2021-08-03 05:25] LABS: Hematocrit 32.7 % (42.0-52.0); Mean Corpuscular HGB Conc 30.6 g/dl (32-36); Mean Corpuscular Hemoglobin 30.7 pg (26-34); Mean Corpuscular Volume 100.3 fl (80-100); Mean Platelet Volume 11.5 fl (7.4-10.4); Platelet Count Result 183 k/mm3 (150-375); Red Blood Count 3.26 M/mm3 (4.6-6.20); Red Cell Distribution Width 13.2 % (11.5-14.5); White Blood Count 7.4 K/mm3 (4.5-10.0)
[2021-08-03 06:00] LABS: Anion Gap 12 mmol/L (8-16); Blood Urea Nitrogen 47 mg/dL (9-20); Calcium 9.2 mg/dL (8.4-10.2); Carbon Dioxide 25 mmol/L (22-30); Chloride 104 mmol/L (98-107); Estimated CRCL calculation 28 ml/min; Estimated Glomerular Filt Rate 29; Glucose 112 mg/dL (65-110); Potassium 4.2 mmol/L (3.4-5.0); Sodium 141 mmol/L (137-145)
[2021-08-03] MEDS: LEVOTHYROXINE SODIUM 50 MCG TABLET PO (06:08)
[2021-08-03 08:42] LABS: Glucose Point of Care 95 mg/dl (65-105)
[2021-08-03] MEDS: SACUBITRIL/VALSARTAN 49-51 MG TABLET 1 TABLET PO ×2 (08:57→20:26)
[2021-08-03] MEDS: ISOSORBIDE MONONITRATE 60 MG TAB.ER.24H PO (08:57)
[2021-08-03] MEDS: carvediloL 12.5 MG TABLET PO ×2 (08:57→17:31)
[2021-08-03] MEDS: ATORVASTATIN 40 MG TABLET 80 MG PO (08:59)
[2021-08-03] MEDS: ASPIRIN 81 MG ENTERIC TABLET PO (08:59)
[2021-08-03] MEDS: INSULIN GLARGINE (*BKC) 100 UNITS/ML SUB-Q (09:00)
[2021-08-03] MEDS: OPTI-GEN TAB 1 TABLET PO ×2 (09:00→17:31)
[2021-08-03] MEDS: CLOPIDOGREL BISULFATE 75 MG TABLET PO (09:00)
[2021-08-03] MEDS: CHOLECALCIFEROL 1,000 UNITS TABLET 5000 UNITS PO (09:00)
[2021-08-03] MEDS: FUROSEMIDE INJ 40 MG/4 ML VIAL IV PUSH ×2 (09:01→17:32)
[2021-08-03 11:34] LABS: Glucose Point of Care 195 mg/dl (65-105)
[2021-08-03 13:08] LABS: NT Pro B Type Natriuretic Pept 25900 pg/mL (5-100)
--- NOTE | 2021-08-03 16:00 | PC.NURSE ---
On 08/03/21, the student, Sherry [facility], provided care and completed [facility] documentation on this patient. I have reviewed the student's documentation and agree with the findings.
[2021-08-03 16:53] LABS: Glucose Point of Care 104 mg/dl (65-105)
--- NOTE | 2021-08-03 18:06 | PM.IMPN ---
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clerosis of autologous artery coronary artery bypass graft(s) with other forms of angina pectoris Status: Acute Assessment and Plan: RESUME HOME MEDS PATIENT HAD A STENT PLACED IN 2013 (3) Elevated troponin: Code(s): R77.8 - Other specified abnormalities of plasma proteins Status: Acute Assessment and Plan: CHRONICALLY ELEVATED SUPPORTIVE CARE (4) Peripheral vascular disease, unspecified: Code(s): I73.9 - Peripheral vascular disease, unspecified Status: Acute Assessment and Plan: UNCHANGED CONTINUE TO MONITOR CONTINUE PLAVIX AND ASPIRIN (5) CKD (chronic kidney disease), stage III: Code(s): N18.3 - Chronic kidney disease, stage 3 (moderate) Status: Acute Assessment and Plan: BUN AND CREATININE AT PATIENT'S BASELINE CONTINUE TO MONITOR (6) Type 2 diabetes mellitus with stage 3 chronic kidney disease, with long-term current use of insulin: Code(s): E11.22 - Type 2 diabetes mellitus with diabetic chronic kidney disease; N18.3 - Chronic kidney disease, stage 3 (moderate); Z79.4 - anatomical embalmer (current) use of insulin Status: Chronic Assessment and Plan: DIET CONTROLLED (7) Gastro-esophageal reflux disease without esophagitis: Code(s): K21.9 - Gastro-esophageal reflux disease without esophagitis Status: Acute Assessment and Plan: PPI NEEDED Additional Plan 08/03/21 pt w chronically elevated troponin denies CP overall improving still w significant LE swelling BG at goal cont IV diuretics Cr 2.2 GFR 28 TOAN on CKD 3 will cont to monitor renal fxn for improvement w diuresis Time Spent With Patient Time with patient: 25 - 35 minutes Subjective Date/time seen: 08/03/21 17:06 pt doing ok on RA still w significant swelling of b/l LE Exam Narrative: GEN: NAD, AAOx3, cooperative HEENT: NCAT, MMM, EOMI Neck: no JVD Heart: S1S2 RRR Lungs: b/l crackles Abd: soft, NT, ND, bowel sounds normoactive Ext: moves all, no cyanosis, no clubbing, 2+ edema Neuro: normal cognition, moves all extremities equally CN intact Psych: mood and affect congruent Objective Data Vital Signs Vital Signs: Vital Signs - 24 hr 08/03/21 04:32 08/03/21 08:00 08/03/21 08:57 Temperature 97.8 F 96.5 F L Pulse Rate 78 72 72 Respiratory Rate 20 18 Blood Pressure 150/60 H 140/55 L Pulse Oximetry 97 97 08/03/21 16:54 08/03/21 17:31 08/03/21 20:22 Temperature 96.6 F L 97.9 F Pulse Rate 64 64 76 Respiratory Rate 20 20 Blood Pressure 132/44 L 123/49 L Pulse Oximetry 99 100 Intake/Output Intake/Output: Intake & Output 07/31/21 08/01/21 08/02/21 08/03/21 23:59 23:59 23:59 23:59 Intake Total 700 1240 Output Total 1700 2575 Balance -1000 -1335 Meds/Results Medications: Active Medications Generic Name Dose Route Start Last Admin Trade Name Hilton PRN Reason Stop Dose Admin Aspirin 81 mg 08/02/21 09:00 08/03/21 08:59 Aspirin 81 Mg Enteric Tablet PO 81 mg DAILY JEFF Administration Atorvastatin Calcium 80 mg 08/02/21 09:00 08/03/21 08:59 Atorvastatin 40 Mg Tablet PO 80 mg DAILY JEFF Administration Carvedilol 12.5 mg 08/02/21 08:00 08/03/21 17:31 Carvedilol 12.5 Mg Tablet PO 12.5 mg BIDWM JEFF Administration Clopidogrel Bisulfate 75 mg 08/02/21 09:00 08/03/21 09:00 Clopidogrel Bisulfate 75 Mg Tablet PO 75 mg DAILY JEFF Administration Furosemide 40 mg 08/02/21 09:00 08/03/21 17:32 Furosemide Inj 40 Mg/4 Ml Vial IV PUSH 40 mg BID JEFF Administration Insulin Glargine 5 un
[2021-08-03 20:46] LABS: Glucose Point of Care 170 mg/dl (65-105)
[2021-08-03 23:32] LABS: Glucose Point of Care 128 mg/dl (65-105)
--- NOTE | 2021-08-03 23:52 | PC.NURSE ---
This patient, Jaime Morrell, was transferred to [[id number]] on 08/03/21 at 2310. Personal belongings sent with patient. Report given to [CISCO Wheeler]. Appropriate documentation sent with patient.
[2021-08-04] VITALS (9 sets, daily range): BP systolic 120–148; BP diastolic 37–54; PULSE 56–78; RESP 17–18; TEMP 36.4–36.7; O2SAT 97–98
[2021-08-04] MEDS: LEVOTHYROXINE SODIUM 50 MCG TABLET PO (06:11)
[2021-08-04 06:49] LABS: Glucose Point of Care 96 mg/dl (65-105)
[2021-08-04] MEDS: CHOLECALCIFEROL 1,000 UNITS TABLET 5000 UNITS PO (08:01)
[2021-08-04] MEDS: SACUBITRIL/VALSARTAN 49-51 MG TABLET 1 TABLET PO ×2 (08:01→20:09)
[2021-08-04] MEDS: ISOSORBIDE MONONITRATE 60 MG TAB.ER.24H PO (08:01)
[2021-08-04] MEDS: ASPIRIN 81 MG ENTERIC TABLET PO (08:01)
[2021-08-04] MEDS: carvediloL 12.5 MG TABLET PO ×2 (08:01→16:03)
[2021-08-04] MEDS: CLOPIDOGREL BISULFATE 75 MG TABLET PO (08:01)
[2021-08-04] MEDS: FUROSEMIDE INJ 40 MG/4 ML VIAL IV PUSH ×2 (08:01→16:03)
[2021-08-04] MEDS: OPTI-GEN TAB 1 TABLET PO ×2 (08:01→16:03)
[2021-08-04] MEDS: ATORVASTATIN 40 MG TABLET 80 MG PO (08:01)
[2021-08-04] MEDS: INSULIN GLARGINE (*BKC) 100 UNITS/ML SUB-Q (08:03)
[2021-08-04 08:59] LABS: Hematocrit 34.2 % (42.0-52.0); Hemoglobin 10.4 g/dL (14.0-18.0); Mean Corpuscular HGB Conc 30.4 g/dl (32-36); Mean Corpuscular Hemoglobin 30.4 pg (26-34); Mean Platelet Volume 11.5 fl (7.4-10.4); Platelet Count Result 189 k/mm3 (150-375); Red Blood Count 3.42 M/mm3 (4.6-6.20); Red Cell Distribution Width 13.2 % (11.5-14.5); White Blood Count 8.1 K/mm3 (4.5-10.0)
[2021-08-04 09:14] LABS: Anion Gap 12 mmol/L (8-16); Blood Urea Nitrogen 49 mg/dL (9-20); Calcium 9.6 mg/dL (8.4-10.2); Carbon Dioxide 28 mmol/L (22-30); Chloride 104 mmol/L (98-107); Estimated CRCL calculation 29 ml/min; Estimated Glomerular Filt Rate 29; Glucose 108 mg/dL (65-110); Potassium 4.1 mmol/L (3.4-5.0); Sodium 144 mmol/L (137-145)
[2021-08-04 09:25] LABS: NT Pro B Type Natriuretic Pept 22600 pg/mL (5-100)
--- NOTE | 2021-08-04 10:27 | PM.IMPN ---
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clerosis of autologous artery coronary artery bypass graft(s) with other forms of angina pectoris Status: Acute Assessment and Plan: RESUME HOME MEDS PATIENT HAD A STENT PLACED IN 2013 (3) Elevated troponin: Code(s): R77.8 - Other specified abnormalities of plasma proteins Status: Acute Assessment and Plan: CHRONICALLY ELEVATED SUPPORTIVE CARE (4) Peripheral vascular disease, unspecified: Code(s): I73.9 - Peripheral vascular disease, unspecified Status: Acute Assessment and Plan: UNCHANGED CONTINUE TO MONITOR CONTINUE PLAVIX AND ASPIRIN (5) CKD (chronic kidney disease), stage III: Code(s): N18.3 - Chronic kidney disease, stage 3 (moderate) Status: Acute Assessment and Plan: BUN AND CREATININE AT PATIENT'S BASELINE CONTINUE TO MONITOR (6) Type 2 diabetes mellitus with stage 3 chronic kidney disease, with long-term current use of insulin: Code(s): E11.22 - Type 2 diabetes mellitus with diabetic chronic kidney disease; N18.3 - Chronic kidney disease, stage 3 (moderate); Z79.4 - watermelon inspector (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) use of insulin Status: Chronic Assessment and Plan: DIET CONTROLLED (7) Gastro-esophageal reflux disease without esophagitis: Code(s): K21.9 - Gastro-esophageal reflux disease without esophagitis Status: Acute Assessment and Plan: PPI NEEDED Additional Plan 08/03/21 pt w chronically elevated troponin denies CP overall improving still w significant LE swelling BG at goal cont IV diuretics Cr 2.2 GFR 28 TOAN on CKD 3 will cont to monitor renal fxn for improvement w diuresis 08/04/21 swelling cont to improve breath sounds improved XR R foot for pain and swelling uric acid ordered cont diuresis monitor renal fxn anticipate dc home tomorrow pt counseled extensively on salt and fluid intake and dietary restrictions Subjective Date/time seen: 08/04/21 10:27 pt feeling better still w pain R first digit we discussed dietary habits today and low sodium diet, pt eating frozen TV dinners, we have reviewed the label on these boxes (via internet product pictures on Hers website) and pt educated how to find the sodium concentration. He understands a low salt diet is < 2,000mg a day and he should monitor his fluid intake too. Pt seems very willing to be compliant given history of his father's NE at a young age. Exam Narrative: GEN: NAD, AAOx3, cooperative HEENT: NCAT, MMM, EOMI Neck: no JVD Heart: S1S2 RRR Lungs: b/l crackles improved Abd: soft, NT, ND, bowel sounds normoactive Ext: moves all, no cyanosis, no clubbing, 1+ edema, R hallux w tenderness and swelling of IPJ Neuro: normal cognition, moves all extremities equally CN intact Psych: mood and affect congruent Objective Data Vital Signs Vital Signs: Vital Signs - 24 hr 08/03/21 16:54 08/03/21 17:31 08/03/21 20:22 Temperature 96.6 F L 97.9 F Pulse Rate 64 64 76 Respiratory Rate 20 20 Blood Pressure 132/44 L 123/49 L Pulse Oximetry 99 100 08/03/21 23:43 08/04/21 04:44 08/04/21 08:01 Temperature 97.6 F Pulse Rate 76 66 70 Respiratory Rate 20 18 Blood Pressure 148/50 H Pulse Oximetry 100 97 Intake/Output Intake/Output: Intake & Output 08/01/21 08/02/21 08/03/21 08/04/21 23:59 23:59 23:59 23:59 Intake Total 700 1240 360 Output Total 1700 2575 400 Balance -1000 -1335 -40 Meds/Results Medications: Active Medications Generic Name Dose Route Start Last Admin Trade Name Arunq PRN Reason Stop Dose Admin Aspirin 81 mg 08/02/21 09:
[2021-08-04 10:37] LABS: Uric Acid 13.7 mg/dL (3.5-8.5)
[2021-08-04 12:05] LABS: Glucose Point of Care 131 mg/dl (65-105)
[2021-08-04 17:00] LABS: Glucose Point of Care 106 mg/dl (65-105)
[2021-08-04 22:15] LABS: Glucose Point of Care 148 mg/dl (65-105)
[2021-08-05] VITALS: PULSE 70
[2021-08-05 03:19] VITALS: BP 145/53; PULSE 71; RESP 17; TEMP 36.8; O2SAT 93
[2021-08-05 04:00] VITALS: PULSE 66
[2021-08-05] MEDS: LEVOTHYROXINE SODIUM 50 MCG TABLET PO (06:23)
[2021-08-05 06:37] LABS: Glucose Point of Care 105 mg/dl (65-105)
[2021-08-05 08:00] VITALS: PULSE 80
[2021-08-05 08:03] VITALS: PULSE 84
[2021-08-05] MEDS: ASPIRIN 81 MG ENTERIC TABLET PO (08:03)
[2021-08-05] MEDS: CLOPIDOGREL BISULFATE 75 MG TABLET PO (08:03)
[2021-08-05] MEDS: SACUBITRIL/VALSARTAN 49-51 MG TABLET 1 TABLET PO (08:03)
[2021-08-05] MEDS: OPTI-GEN TAB 1 TABLET PO (08:03)
[2021-08-05] MEDS: ATORVASTATIN 40 MG TABLET 80 MG PO (08:03)
[2021-08-05] MEDS: ISOSORBIDE MONONITRATE 60 MG TAB.ER.24H PO (08:03)
[2021-08-05] MEDS: carvediloL 12.5 MG TABLET PO (08:03)
[2021-08-05] MEDS: CHOLECALCIFEROL 1,000 UNITS TABLET 5000 UNITS PO (08:04)
[2021-08-05] MEDS: FUROSEMIDE INJ 40 MG/4 ML VIAL IV PUSH (08:05)
[2021-08-05] MEDS: INSULIN GLARGINE (*BKC) 100 UNITS/ML SUB-Q (08:06)
[2021-08-05 11:44] LABS: Glucose Point of Care 175 mg/dl (65-105)
[2021-08-05 12:00] VITALS: PULSE 57
--- NOTE | 2021-08-05 12:49 | PM.DS ---
DS: Admitting Diagnosis Discharge Date 08/05/2021 Admitting Diagnosis (1) Acute on chronic systolic heart failure: Code(s): I50.23 - Acute on chronic systolic (congestive) heart failure Status: Acute Assessment and Plan: WILL ADMIT TO IMU AGGRESSIVE DIURESIS GONZALES CATHETER INTAKE AND OUTPUT DAILY 1500 CC FLUID RESTRICTION DIET OF FREE WATER CONTINUE TO MONITOR SUPPORTIVE CARE (2) Presence of combination internal cardiac defibrillator (ICD) and pacemaker: Code(s): Z95.810 - Presence of automatic (implantable) cardiac defibrillator Status: Inactive Assessment and Plan: CONTINUE TO MONITOR (3) 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clerosis of autologous artery coronary artery bypass graft(s) with other forms of angina pectoris Status: Acute Assessment and Plan: RESUME HOME MEDS PATIENT HAD A STENT PLACED IN 2013 (4) Elevated troponin: Code(s): R77.8 - Other specified abnormalities of plasma proteins Status: Acute Assessment and Plan: CHRONICALLY ELEVATED SUPPORTIVE CARE (5) Peripheral vascular disease, unspecified: Code(s): I73.9 - Peripheral vascular disease, unspecified Status: Acute Assessment and Plan: UNCHANGED CONTINUE TO MONITOR CONTINUE PLAVIX AND ASPIRIN (6) CKD (chronic kidney disease), stage III: Code(s): N18.3 - Chronic kidney disease, stage 3 (moderate) Status: Acute Assessment and Plan: BUN AND CREATININE AT PATIENT'S BASELINE CONTINUE TO MONITOR (7) Type 2 diabetes mellitus with stage 3 chronic kidney disease, with long-term current use of insulin: Code(s): E11.22 - Type 2 diabetes mellitus with diabetic chronic kidney disease; N18.3 - Chronic kidney disease, stage 3 (moderate); Z79.4 - intermediate frame tender (current) use of insulin Status: Chronic Assessment and Plan: DIET CONTROLLED (8) Gastro-esophageal reflux disease without esophagitis: Code(s): K21.9 - Gastro-esophageal reflux disease without esophagitis Status: Acute Assessment and Plan: DS: Discharge Diagnosis Discharge Diagnosis (1) Acute exacerbation of CHF (congestive heart failure): Qualifiers: Heart failure type: unspecified Qualified Code(s): I50.9 - Heart failure, unspecified Code(s): I50.9 - Heart failure, unspecified Status: Acute (2) Acute on chronic systolic heart failure: Code(s): I50.23 - Acute on chronic systolic (congestive) heart failure Status: Acute (3) 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clerosis of autologous artery coronary artery bypass graft(s) with other forms of angina pectoris Status: Acute (4) Elevated troponin: Code(s): R77.8 - Other specified abnormalities of plasma proteins Status: Acute (5) Peripheral vascular disease, unspecified: Code(s): I73.9 - Peripheral vascular disease, unspecified Status: Acute (6) CKD (chronic kidney disease), stage III: Code(s): N18.3 - Chronic kidney disease, stage 3 (moderate) Status: Acute (7) Type 2 diabetes mellitus with stage 3 chronic kidney disease, with long-term current use of insulin: Code(s): E11.22 - Type 2 diabetes mellitus with diabetic chronic kidney disease; N18.3 - Chronic kidney disease, stage 3 (moderate); Z79.4 - intermediate (current) use of insulin Status: Chronic (8) Sleep apnea, unspecified: Onset Date: 12/29/15 Code(s): G47.30 - Sleep apnea, unspecified Status: Chronic (9) Gastro-esophageal reflux disease without esophagitis: Code(s): K21.9 - Gastro-esophageal reflux disease without esophagitis Status: Acute (10) Essential (primary) hypertension: Code(s): I10 - Essential (primary) hypertension Status: Acute (11) Hypothyroidism, unspecified: Code(s):
[2021-08-05] MEDS: COLCHICINE 0.6 MG TABLET 1.2 MG PO (13:13)
[2021-08-05] MEDS: predniSONE 20 MG TABLET PO (13:13)
== END 2021-08-05 13:55 | disposition home or self-care (01) | DRG 291 ==
LOC: ANHED 23:29 → ANHIMU 08-02 06:34 → ANH2MED 08-05 12:33 → ANHIMU 08-09 15:18
PROVIDERS: Family Medicine; Admitting Provider Internal Medicine; Emergency Provider Emergency Medicine; PCP Family Medicine; Visit Provider Hospitalist
DX: I13.0 Hypertensive heart and chronic kidney disease with heart failure and stage 1 through stage 4 chronic kidney disease, or unspecified chronic kidney disease (principal); I50.23 Acute on chronic systolic (congestive) heart failure; I25.728 Atherosclerosis of autologous artery coronary artery bypass graft(s) with other forms of angina pectoris; N17.9 Acute kidney failure, unspecified; R77.8 Other specified abnormalities of plasma proteins; I73.9 Peripheral vascular disease, unspecified; E11.51 Type 2 diabetes mellitus with diabetic peripheral angiopathy without gangrene; E11.22 Type 2 diabetes mellitus with diabetic chronic kidney disease; N18.30 Chronic kidney disease, stage 3 unspecified; M79.672 Pain in left foot; M10.372 Gout due to renal impairment, left ankle and foot; K21.9 Gastro-esophageal reflux disease without esophagitis; E03.9 Hypothyroidism, unspecified; E78.2 Mixed hyperlipidemia; J44.9 Chronic obstructive pulmonary disease, unspecified; G47.30 Sleep apnea, unspecified; Z79.4 Long term (current) use of insulin; Z79.899 Other long term (current) drug therapy; Z86.718 Personal history of other venous thrombosis and embolism; Z88.0 Allergy status to penicillin; Z95.810 Presence of automatic (implantable) cardiac defibrillator
CPT/HCPCS: 36415; 71046; 73620; 80048; 82948; 83880; 84484; 84550; 85025; 85027; 93005; 96374; 97162; 99285; A9270; C8929; J1815; J1940; J7512; Q9957

== ENCOUNTER 2021-11-12 21:54 | Inpatient (IN) | payer MEDICARE, SELFPAY ==
[2021-11-12] VITALS (11 sets, daily range): BP systolic 151–189; BP diastolic 68–90; PULSE 80–94; RESP 12–27; TEMP 36.6; O2SAT 88–100
--- NOTE | ~2021-11-12 | XR_ITS ---
EXAMINATION: XR chest 2V EXAM DATE: 11/12/2021 21:34 INDICATION: Dyspnea, bilateral lower extremity edema. History CHF COPD hypertension. TECHNIQUE: Portable AP frontal chest x-ray was obtained. Comparison is made to prior examination from 08/01/2021. FINDINGS: Small to moderate left pleural effusion with adjacent atelectasis. Moderate cardiomegaly. P ulmonary vascular congestion. There is indistinct reticulation with a bibasal predominance which may indicate pulmonary edema. Sternotomy wires. Pacemaker/AICD device. There are no osseous abnormalities identified. IMPRESSION: 1. Findings consistent with CHF exacerbation. 2. Small to moderate left pleural effusion. Reviewed, dictated and finalized at location A. [facility]
--- NOTE | 2021-11-12 21:07 | ECG_ITS ---
Measurements Intervals B[place]ier Rate: 90 P: 10 AK: 143 QRS: 18 QRSD: 142 T: 187 QT: 402 QTc: 492 Interpretive Statements SINUS RHYTHM INCOMPLETE LEFT BUNDLE BRANCH BLOCK CONSIDER INFERIOR INFARCT, AGE INDETERMINATE BORDERLINE ST-T WAVE ABNORMALITY- ANTEROLAT/INF LEADS BASELINE ARTIFACT- I, II, AVR ABNORMAL ECG Electronically Signed On 11-13-2021 6:36:29 [employer] by Leon Mckeon D.O.
--- NOTE | 2021-11-12 21:21 | ED.GENADULT ---
HPI - General Adult General Chief complaint: Shortness of Breath/Dyspnea Stated complaint: respiratory distress History of Present Illness HPI narrative: 76-year-old male with history of congestive heart failure and fluid overload presents to the emergency department complaining of worsening shortness of breath over the last few days. Patient states over the last few days he has had worsening lower extremity edema and abdominal fullness. Patient does have follow-up with Dr. Broussard for cardiology. Patient states that he is prescribed 40 mg of p.o. Lasix twice a day. Patient states he has not taken his Lasix today. Patient does complain of lower extremity edema that he states is worse than his baseline. Patient is not on oxygen at home during the day but does sleep with it at nighttime. Patient states that he has had increasing shortness of breath over the course of the last 2 days. Patient denies any abdominal pain. Patient denies any associated nausea vomiting diarrhea. Patient denies any chest pain but does report of breath. Related Data Home Medications Medication Instructions Recorded Confirmed atorvastatin 80 mg tablet 80 mg PO DAILY 09/23/19 08/02/21 Entresto 1 tablet PO BID 01/08/20 08/02/21 PreserVision AREDS-2 1 cap PO BID 10/20/20 08/02/21 aspirin 81 mg tablet,delayed 81 mg PO DAILY 01/19/21 08/02/21 release carvedilol 12.5 mg tablet 12.5 mg PO Q12H 01/19/21 08/02/21 furosemide 40 mg tablet 40 mg PO QAM tablet 01/19/21 08/02/21 Basaglar KwikPen U-100 Insulin 5 unit SUBCUT QAM 08/02/21 08/02/21 cholecalciferol (vitamin D3) 125 mcg PO DAILY 08/02/21 08/02/21 furosemide [Lasix] 20 mg PO HS 08/02/21 08/02/21 isosorbide mononitrate 60 mg PO DAILY 08/02/21 08/02/21 Allergies Allergy/AdvReac Type Severity Reaction Status Date / Time Penicillins Allergy Severe unknown Verified 11/12/21 21:05 Review of Systems Review of Systems: CONSTITUTIONAL: Denies fever, chills, or sweats. EYES: Denies visual changes, redness, or discharge. ENT: Denies rhinorrhea, congestion, sore throat, or otalgia. CARDIOVASCULAR: Denies chest pain, palpitations. Does have abdominal and lower extremity edema RESPIRATORY: Denies cough or dyspnea. GASTROINTESTINAL: Denies abdominal pain, nausea, vomiting, or diarrhea. GENITOURINARY: Denies dysuria or hematuria. SKIN: Denies rash or itching. MUSCULOSKELETAL: Denies back pain, joint pain, or myalgia. NEUROLOGIC: Denies headache, numbness, or weakness. PSYCHIATRIC: Denies anxiety or depression. 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 DVT (deep venous thrombosis) Essential (primary) hypertension Gastro-esophageal reflux disease without esophagitis History of DVT (deep vein thrombosis) History of stent insertion of renal artery Hypothyroidism, unspecified Mixed hyperlipidemia Pancreatitis Peripheral vascular disease, unspecified Positive for macroalbuminuria Presence of combination internal cardiac defibrillator (ICD) and pacemaker Psoriasis Sleep apnea, unspecified (12/29/15) Intolerant of CPAP and only wears oxygen at night Type 2 diabetes mellitus with stage 3 chronic kidney disease, with long-term current use of insulin Umbilical hernia without obstruction and without gangrene Surgical History Surgical History H/O abdominal surgery Revascularization to renal arteries and mesenteric artery H/O fasciotomy Right leg History of embolectomy Right leg Hx of CABG
[2021-11-12 21:56] LABS: Basophils Absolute Auto 0.1 K/mm3 (0.0-0.1); Basophils Percent Auto 0.5 % (0.2-1.2); Eosinophils Absolute Auto 0.2 K/mm3 (0-0.3); Eosinophils Percent Auto 1.7 % (0-4.4); Hematocrit 39.5 % (42.0-52.0); Hemoglobin 11.7 g/dL (14.0-18.0); Immature Granulocyte Absolute 0.03 K/mm3 (0.00-0.031); Immature Granulocyte Percent A 0.3 % (0-0.5); Lymphocytes Absolute Auto 1.03 K/mm3 (0.9-3.2); Lymphocytes Percent Auto 10.6 % (18.3-44.2); Mean Corpuscular HGB Conc 29.6 g/dl (32-36); Mean Corpuscular Volume 97.8 fl (80-100); Mean Platelet Volume 11.5 fl (7.4-10.4); Monocytes Absolute Auto 0.9 K/mm3 (0.1-0.6); Monocytes Percent Auto 9.1 % (2.6-8.5); Neutrophils Absolute Auto 7.5 K/mm3 (1.3-6.7); Neutrophils Percent Auto 77.8 % (45.5-73.1); Platelet Count Result 192 k/mm3 (150-375); Red Blood Count 4.04 M/mm3 (4.6-6.20); Red Cell Distribution Width 17.2 % (11.5-14.5); White Blood Count 9.7 K/mm3 (4.5-10.0)
[2021-11-12 22:05] LABS: INR 1.2; Prothrombin Time 14.9 Seconds (11.1-14.7)
[2021-11-12 22:06] LABS: Hypochromasia 1+ (NORMAL); Partial Thromboplastin Time 35.5 SECONDS (22.3-36.8); Platelet Estimate Adequate (Adequate)
[2021-11-12 22:07] LABS: Anisocytosis 2+ (NORMAL)
[2021-11-12 22:10] LABS: Alanine Aminotransferase 13 U/L (4-50); Albumin Level 4.1 g/dL (3.5-5.1); Alkaline Phosphatase 91 U/L (38-126); Anion Gap 11 mmol/L (8-16); Aspartate Amino Transferase 22 U/L (17-59); Bilirubin,Total 0.5 mg/dL (0.2-1.3); Blood Urea Nitrogen 43 mg/dL (9-20); Calcium 9.7 mg/dL (8.4-10.2); Carbon Dioxide 27 mmol/L (22-30); Chloride 105 mmol/L (98-107); Estimated CRCL calculation 27 ml/min; Estimated Glomerular Filt Rate 28; Glucose 130 mg/dL (65-110); Potassium 3.6 mmol/L (3.4-5.0); Sodium 143 mmol/L (137-145)
[2021-11-12] MEDS: FUROSEMIDE INJ 100 MG/10 ML VIAL 80 MG IV PUSH (22:23)
[2021-11-12 22:28] LABS: NT Pro B Type Natriuretic Pept > 35000 pg/mL (5-100); Troponin I 0.078 ng/mL (0.000-0.034)
[2021-11-12 23:11] LABS: EDCOVIDSCREEN Negative (Negative)
[2021-11-13] VITALS (47 sets, daily range): BP systolic 128–175; BP diastolic 67–85; PULSE 71–95; RESP 8–31; TEMP 36.7; O2SAT 82–99
[2021-11-13] MEDS: carvediloL 12.5 MG TABLET PO ×2 (00:10→21:32)
[2021-11-13] MEDS: SACUBITRIL/VALSARTAN 49-51 MG TABLET 1 TABLET PO ×2 (00:10→21:32)
[2021-11-13 02:00] LABS: Troponin I 0.082 ng/mL (0.000-0.034)
[2021-11-13 08:22] LABS: Troponin I 0.076 ng/mL (0.000-0.034)
[2021-11-13] MEDS: CLOPIDOGREL BISULFATE 75 MG TABLET PO (09:24)
[2021-11-13] MEDS: FUROSEMIDE INJ 40 MG/4 ML VIAL IV PUSH ×2 (09:24→18:16)
[2021-11-13 12:25] LABS: Glucose Point of Care 142 mg/dl (65-105)
--- NOTE | 2021-11-13 15:22 | PC.NURSE ---
ordered dinner tray @[phone]
--- NOTE | 2021-11-13 17:51 | PM.IMHP ---
H&P: HPI History of Present Illness Date/Time: 11/13/21 17:51 Patient is a 76-year-old male past medical history of CAD status post CABG x5, obstructive sleep apnea, hypertension, hyperlipidemia, congestive heart failure, CKD stage 4, presents to the ED with complaints of dyspnea and fluid overload. He follows Dr. Richmond cardiology for his heart failure. He follows Dr. Ureña for his renal failure. He had gained some weight over last couple days and shortness of breath. He had his previous hospitalization in July of 2021 with the same thing of CHF exacerbation. In the ED: Is found to be in fluid overload, creatinine around baseline at 2.3, elevated troponin 0.076 likely secondary to fluid overload, elevated BNP greater than 35,000. Chest x-ray consistent with CHF exacerbation. Was given 80 mg IV Lasix and had -800 net fluid output. This afternoon evaluated patient he has been weaned down to room air. He is breathing comfortably. Likely discharge in the morning. He still has significant pitting edema lower extremities. Chief Complaint: Dyspnea, fluid overload Review of Systems Review of Systems: Constitutional: No Fever, No Chills, No Night Sweats, No Fatigue, No Malaise ENT/Mouth: No Hearing Changes, No Ear Pain, No Nasal Congestion, No Sinus Pain, No Hoarseness, No sore throat, No Rhinorrhea, No Swallowing Difficulty Eyes: No Eye Pain, No Redness, No Vision Changes Cardiovascular: No Chest Pain, No Palpitations, No Dyspnea on Exertion, No Orthopnea, No Claudication. Endorses peripheral edema Respiratory: Endorses shortness of breath. Denies sputum or cough. Gastrointestinal: No Nausea, No Vomiting, No Diarrhea, No Constipation, No Abdominal Pain, No Heartburn, No Hematochezia, No Melena Genitourinary: No Dysuria, No Urinary Frequency, No Hematuria, No Urinary Incontinence, No Urgency Musculoskeletal: No Arthralgias, No Myalgias, No Joint Swelling, No Joint Stiffness, No Back Pain Skin: No Skin Lesions, No Pruritis, No Hair Changes Neuro: No Weakness, No Numbness, No Paresthesias, No Loss of Consciousness, No Syncope, No Dizziness, No Headache Psych: No Anxiety/Panic, No Depression, No Insomnia Heme: No Bruising, No Bleeding Lymph: No Adenopathy Endocrine: No Polyuria, No Polydipsia, No Temperature Intolerance [facility] Past Medical History Medical History AAA (abdominal aortic aneurysm) Anemia Arthritis Back pain Bowel obstruction Cardiac defibrillator in place Carotid stenosis, bilateral Carpal tunnel syndrome Chronic diastolic CHF (congestive heart failure) Chronic renal insufficiency, stage III (moderate) Colon cancer screening declined COPD (chronic obstructive pulmonary disease) 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 DVT (deep venous thrombosis) Essential (primary) hypertension Gastro-esophageal reflux disease without esophagitis History of DVT (deep vein thrombosis) History of stent insertion of renal artery Hypothyroidism, unspecified Mixed hyperlipidemia Pancreatitis Peripheral vascular disease, unspecified Positive for macroalbuminuria Presence of combination internal cardiac defibrillator (ICD) and pacemaker Psoriasis Sleep apnea, unspecified (12/29/15) Intolerant of CPAP and only wears oxygen at night Type 2 diabetes mellitus with stage 3 chronic kidney disease, with long-term current use of insulin Umbilical hernia without obstruction and without gangrene Surgical History Surgical History H/O abdominal surgery Revascularization to renal arteries and mesenteric artery H/O fasciotomy Right leg History of embolectomy Right leg Hx of CABG Initially 5 vessel CABG and later on he had 1 that was redone now for those vessels are occluded he has collateral only 1 vessel is pain Hx of cardiac catheterization Multiple times Hx of cataract surgery
[2021-11-13 20:46] LABS: Hemoglobin A1C 6.4 % (<5.7)
[2021-11-13 21:44] LABS: Glucose Point of Care 130 mg/dl (65-105)
[2021-11-14] VITALS (12 sets, daily range): BP systolic 116–155; BP diastolic 55–84; PULSE 66–78; RESP 16–20; TEMP 36–36.3; O2SAT 94–98; BMI 35.7; BMI 32.4
[2021-11-14 06:35] LABS: Glucose Point of Care 124 mg/dl (65-105)
[2021-11-14] MEDS: LEVOTHYROXINE SODIUM 50 MCG TABLET PO (06:56)
[2021-11-14] MEDS: ATORVASTATIN 40 MG TABLET 80 MG PO (08:29)
[2021-11-14] MEDS: CLOPIDOGREL BISULFATE 75 MG TABLET PO (08:29)
[2021-11-14] MEDS: ISOSORBIDE MONONITRATE 60 MG TAB.ER.24H PO (08:29)
[2021-11-14] MEDS: OPTI-GEN TAB 1 TABLET PO ×2 (08:29→17:28)
[2021-11-14] MEDS: ASPIRIN 81 MG ENTERIC TABLET PO (08:29)
[2021-11-14] MEDS: CHOLECALCIFEROL 1,000 UNITS TABLET 5000 UNITS PO (08:29)
[2021-11-14 08:34] LABS: Glucose Point of Care 101 mg/dl (65-105)
[2021-11-14] MEDS: INSULIN GLARGINE (*BKC) 100 UNITS/ML SUB-Q (08:45)
--- NOTE | 2021-11-14 09:05 | PM.IMPN ---
Progress Note: A&P Assessment and Plan (1) Acute exacerbation of CHF (congestive heart failure): Qualifiers: Heart failure type: unspecified Qualified Code(s): I50.9 - Heart failure, unspecified Code(s): I50.9 - Heart failure, unspecified Status: Acute Assessment and Plan: Patient presents significant lower extremity edema is. Lungs are clear. Continue IV Lasix 40 mg IV b.i.d.. (2) TOAN (acute kidney injury): Code(s): N17.9 - Acute kidney failure, unspecified Status: Acute Assessment and Plan: Likely due to prerenal versus ischemic ATN. There may be an element of Cardura renal in the setting of acute heart failure Additional Plan # congestive heart failure with reduced ejection fraction -patient does a poor job controlling his fluid intake and diuretic management at home with recurrent admissions -last admission was in July 2021 with same thing of fluid overload CHF exacerbation -echocardiogram from 08/02/2021: Left ventricular ejection fraction 30-35%, hypokinesis of mid to basal anterior lateral inferior anterior and basal inferior septal arroyo. Patient states he had a significant coronary history with CABG x5 -continue Lasix IV diuresis 40 mg IV b.i.d., home uses 40 mg p.o. b.i.d. -on Entresto -meds for CAD and heart failure: aspirin, Plavix, statin, Coreg, Imdur -supplemental oxygen to keep oxygen saturation greater than 90%, currently on room air # chronic conditions -CAD status post CABG x5: Dual antiplatelets aspirin Plavix, statin -vitamin-D deficiency: Continue supplement -insulin-dependent type 2 diabetes: Continue home Lantus 5 units q.a.m. -hypothyroidism: Continue Synthroid Diet: Heart healthy 1500 cc fluid restriction DVT prophylaxis: Lovenox Code status: Full code Disposition: Home tomorrow as he is weaned off oxygen to room air Subjective Date/time seen: 11/14/21 09:05 S: Patient was seen examined at the bedside. He reports bilateral lower extremity edema up to the knees. Exam Narrative: - GENERAL: No acute distress. Well-nourished. Temperature 96? 28, pulse was 68, respirations 17, pulse ox 95, blood pressure 116/66. Intake 0.5 L. Output 1.15 L. Balance -600 mL - EYES: EOMI. Anicteric. - HENT: Moist mucous membranes. - LUNGS: Clear to auscultation apically, bibasilar rales. - CARDIOVASCULAR: Regular rate and rhythm. - ABDOMEN: Soft, non-tender and non-distended. No palpable masses. - : Golden catheter placed - EXTREMITIES: 3+ pitting bilateral lower extremity including pedal edema. Peripheral pulses 2+. Non-tender. - NEUROLOGIC: No focal neurological deficits. CN II-XII grossly intact. - PSYCHIATRIC: Awake, Alert and oriented x 3. Appropriate mood and affect. - SKIN: No rashes or lesions. Warm. - LYMPH: No cervical lymphadenopathy. Objective Data Vital Signs Vital Signs: Vital Signs - 24 hr 11/13/21 12:13 11/13/21 15:16 11/13/21 18:17 Pulse Rate 73 75 79 Respiratory Rate 17 18 Blood Pressure 148/69 H 160/82 H 128/70 Pulse Oximetry 96 93 94 11/13/21 21:32 11/13/21 21:34 11/13/21 21:35 Pulse Rate 95 95 Respiratory Rate 18 Blood Pressure 165/79 H Pulse Oximetry 90 93 11/14/21 02:33 11/14/21 05:41 Pulse Rate 78 68 Respiratory Rate 20 18 Blood Pressure 131/84 124/79 Pulse Oximetry 94 96 Intake/Output Intake/Output: Intake & Output 11/11/21 11/12/21 11/13/21 11/14/21 23:59 23:59 23:59 23:59 Intake Total 240 Output Total 800 500 Balance -800 -260 Meds/Results Medications: Active Medications Generic Name Dose Route Start Last Admin Trade Name Hilton PRN Reason Stop Dose Admin Aspirin 81 mg 11/14/21 09:00 11/14/21 08:29 Aspirin 81 Mg Enteric Tablet PO 81 mg DAILY JEFF Administration Atorvastatin Calcium 80 mg 11/14/21 09:00 11/14/21 08:29 Atorvastatin 40 Mg Tablet PO 80 mg DAILY JEFF Administration Carvedilol 12.5 mg 11/13/21 21:00 11/13/21 21:32 Carvedilol 12.5 Mg Ta
[2021-11-14] MEDS: FUROSEMIDE INJ 40 MG/4 ML VIAL IV PUSH ×2 (10:00→17:28)
[2021-11-14] MEDS: carvediloL 12.5 MG TABLET PO ×2 (10:00→20:15)
[2021-11-14] MEDS: SACUBITRIL/VALSARTAN 49-51 MG TABLET 1 TABLET PO ×2 (10:00→20:15)
--- NOTE | 2021-11-14 10:00 | PC.NURSE ---
Called pharmacy for laxis
[2021-11-14 10:25] LABS: Basophils Absolute Auto 0.1 K/mm3 (0.0-0.1); Basophils Percent Auto 0.8 % (0.2-1.2); Eosinophils Absolute Auto 0.2 K/mm3 (0-0.3); Hemoglobin 10.6 g/dL (14.0-18.0); Immature Granulocyte Absolute 0.02 K/mm3 (0.00-0.031); Immature Granulocyte Percent A 0.3 % (0-0.5); Lymphocytes Absolute Auto 1.21 K/mm3 (0.9-3.2); Lymphocytes Percent Auto 16.4 % (18.3-44.2); Mean Corpuscular HGB Conc 29.4 g/dl (32-36); Mean Corpuscular Hemoglobin 28.7 pg (26-34); Mean Corpuscular Volume 97.6 fl (80-100); Monocytes Absolute Auto 0.6 K/mm3 (0.1-0.6); Monocytes Percent Auto 8.7 % (2.6-8.5); Neutrophils Absolute Auto 5.2 K/mm3 (1.3-6.7); Neutrophils Percent Auto 70.8 % (45.5-73.1); Platelet Count Result 165 k/mm3 (150-375); Red Blood Count 3.69 M/mm3 (4.6-6.20); Red Cell Distribution Width 17.2 % (11.5-14.5); White Blood Count 7.4 K/mm3 (4.5-10.0)
[2021-11-14 12:24] LABS: Glucose Point of Care 139 mg/dl (65-105)
--- NOTE | 2021-11-14 17:25 | PC.NURSE ---
Attempted to call report to RN x1
--- NOTE | 2021-11-14 17:38 | PC.NURSE ---
Gave report to Staci PECK, no further questions or concerns
[2021-11-14 17:45] LABS: Glucose Point of Care 116 mg/dl (65-105)
--- NOTE | 2021-11-14 18:19 | PC.NURSE ---
This patient, Jaime Morrell, was admitted to [address] [place] [address] Room 315-01 at 1800 . Patient/family oriented to hospital policies and general routines including ID bracelet, bed and alarms, visiting hours, pain management, procedures, bathroom and other care routines, personal items, smoking policy, room service/diet, and visiting hours. Information on how to activate the Rapid Response Team has been discussed. Patient/Family are encouraged to report perceived risks to care and to ask questions if they do not understand what they are told or what they should do.
[2021-11-14 19:47] LABS: Hematocrit 36.5 % (42.0-52.0); Hemoglobin 10.9 g/dL (14.0-18.0); Mean Corpuscular HGB Conc 29.9 g/dl (32-36); Mean Corpuscular Hemoglobin 28.8 pg (26-34); Mean Corpuscular Volume 96.6 fl (80-100); Mean Platelet Volume 12.2 fl (7.4-10.4); Platelet Count Result 184 k/mm3 (150-375); Red Blood Count 3.78 M/mm3 (4.6-6.20); Red Cell Distribution Width 17.2 % (11.5-14.5); White Blood Count 9.2 K/mm3 (4.5-10.0)
[2021-11-14 19:56] LABS: Anion Gap 9 mmol/L (8-16); Blood Urea Nitrogen 46 mg/dL (9-20); Calcium 9.1 mg/dL (8.4-10.2); Carbon Dioxide 28 mmol/L (22-30); Chloride 102 mmol/L (98-107); Estimated CRCL calculation 25 ml/min; Estimated Glomerular Filt Rate 25; Glucose 145 mg/dL (65-110); Potassium 4.1 mmol/L (3.4-5.0); Sodium 139 mmol/L (137-145)
[2021-11-14 20:35] LABS: Glucose Point of Care 142 mg/dl (65-105)
[2021-11-15] VITALS (11 sets, daily range): BP systolic 121–129; BP diastolic 49–53; PULSE 66–70; RESP 16–20; TEMP 36.6–36.8; O2SAT 94–100
--- NOTE | 2021-11-15 01:22 | PC.NURSE ---
Patient resting peacefully. O2 at 1l. Will continue to monitor
[2021-11-15] MEDS: LEVOTHYROXINE SODIUM 50 MCG TABLET PO (05:55)
[2021-11-15 07:28] LABS: Hematocrit 36.4 % (42.0-52.0); Hemoglobin 10.7 g/dL (14.0-18.0); Mean Corpuscular HGB Conc 29.4 g/dl (32-36); Mean Corpuscular Hemoglobin 28.8 pg (26-34); Mean Corpuscular Volume 97.8 fl (80-100); Mean Platelet Volume 12.4 fl (7.4-10.4); Platelet Count Result 163 k/mm3 (150-375); Red Blood Count 3.72 M/mm3 (4.6-6.20)
[2021-11-15 07:48] LABS: Anion Gap 9 mmol/L (8-16); Blood Urea Nitrogen 47 mg/dL (9-20); Calcium 9.1 mg/dL (8.4-10.2); Carbon Dioxide 29 mmol/L (22-30); Chloride 103 mmol/L (98-107); Estimated CRCL calculation 26 ml/min; Estimated Glomerular Filt Rate 27; Glucose 113 mg/dL (65-110); Potassium 3.9 mmol/L (3.4-5.0); Sodium 141 mmol/L (137-145)
[2021-11-15] MEDS: CHOLECALCIFEROL 1,000 UNITS TABLET 5000 UNITS PO (08:15)
[2021-11-15] MEDS: carvediloL 12.5 MG TABLET PO ×2 (08:15→20:31)
[2021-11-15] MEDS: ATORVASTATIN 40 MG TABLET 80 MG PO (08:15)
[2021-11-15] MEDS: CLOPIDOGREL BISULFATE 75 MG TABLET PO (08:16)
[2021-11-15] MEDS: ISOSORBIDE MONONITRATE 60 MG TAB.ER.24H PO (08:16)
[2021-11-15] MEDS: ASPIRIN 81 MG ENTERIC TABLET PO (08:16)
[2021-11-15] MEDS: OPTI-GEN TAB 1 TABLET PO ×2 (08:16→17:15)
[2021-11-15] MEDS: SACUBITRIL/VALSARTAN 49-51 MG TABLET 1 TABLET PO ×2 (08:16→20:31)
[2021-11-15] MEDS: INSULIN GLARGINE (*BKC) 100 UNITS/ML SUB-Q (08:21)
[2021-11-15] MEDS: FUROSEMIDE INJ 40 MG/4 ML VIAL IV PUSH ×2 (08:23→17:24)
[2021-11-15 10:21] LABS: Glucose Point of Care 100 mg/dl (65-105)
--- NOTE | 2021-11-15 10:38 | PM.IMPN ---
Progress Note: A&P Assessment and Plan (1) Acute exacerbation of CHF (congestive heart failure): Qualifiers: Heart failure type: unspecified Qualified Code(s): I50.9 - Heart failure, unspecified Code(s): I50.9 - Heart failure, unspecified Status: Acute Assessment and Plan: Lower extremity edemas are improving. Lungs are clear. Continue IV Lasix 40 mg IV b.i.d. continue fluid restriction 1500 cc. With patient's daily. (2) TOAN (acute kidney injury): Code(s): N17.9 - Acute kidney failure, unspecified Status: Acute Assessment and Plan: Likely due to prerenal versus ischemic ATN. There may be an element of Cardiorenal in the setting of acute heart failure Additional Plan # congestive heart failure with reduced ejection fraction -patient does a poor job controlling his fluid intake and diuretic management at home with recurrent admissions -last admission was in July 2021 with same thing of fluid overload CHF exacerbation -echocardiogram from 08/02/2021: Left ventricular ejection fraction 30-35%, hypokinesis of mid to basal anterior lateral inferior anterior and basal inferior septal arroyo. Patient states he had a significant coronary history with CABG x5 -continue Lasix IV diuresis 40 mg IV b.i.d., home uses 40 mg p.o. b.i.d. -on Entresto -meds for CAD and heart failure: aspirin, Plavix, statin, Coreg, Imdur -supplemental oxygen to keep oxygen saturation greater than 90%, currently on room air # chronic conditions -CAD status post CABG x5: Dual antiplatelets aspirin Plavix, statin -vitamin-D deficiency: Continue supplement -insulin-dependent type 2 diabetes: Continue home Lantus 5 units q.a.m. -hypothyroidism: Continue Synthroid Diet: Heart healthy 1500 cc fluid restriction DVT prophylaxis: Lovenox Code status: Full code Disposition: Home tomorrow. Subjective Date/time seen: 11/15/21 10:38 S: Patient was seen and examined at the bedside. He wants the garcia to be removed. His breathing is improving and lower extremity edemas are receding. Review of Systems Review of Systems: All systems reviewed & are unremarkable except as noted in HPI and below Constitutional: Constitutional: Reports as per HPI and Reports no additional constitutional complaints Eyes: Eyes: Reports as per HPI, Reports no additional eye complaints and Denies blurry vision ENT: Reports system reviewed and no additional complaints, except as documented, Reports as per HPI and Denies epistaxis Cardiovascular: Cardiovascular: Reports as per HPI, Reports pedal edema and Denies dyspnea Respiratory: Respiratory: Reports as per HPI, Denies cough and Denies dyspnea Gastrointestinal: Gastrointestinal: Reports as per HPI, Denies diarrhea, Denies nausea and Denies vomiting Genitourinary: Genitourinary: Reports no additional male genitourinary complaints Musculoskeletal: Musculoskeletal: Reports no additional musculoskeletal complaints Integumentary/Breasts: Skin/Breast: Reports system reviewed and no additional complaints, except as docu and Denies rash Neurologic: Reports system reviewed and no additional complaints, except as documented Psychiatric: Psychiatric: Reports no additional psychiatric complaints and Reports as per HPI Endocrine: Endocrine: Reports no additional endocrine complaints and Reports as per HPI Hematologic/Lymphatic: Hematologic/Lymphatic: Reports no additional hematologic/lymphatic complaints and Reports as per HPI Allergic/Immunologic: Allergic/Immunologic: Reports no additional allergic/immunologic complaints and Reports as per HPI Exam Narrative: - GENERAL: No acute distress. Well-nourished. Temperature 96? 28, pulse was 68, respirations 17, pulse ox 95, blood pressure 116/66. Intake 0.5 L. Output 1.15 L. Balance -600 mL - EYES: EOMI. Anicteric. - HENT: Moist mucous membranes. - LUNGS: Clear to auscultation apically, bibasilar rales. - CARDIOVASCULAR: Regular rate and rh
[2021-11-15 11:46] LABS: Glucose Point of Care 159 mg/dl (65-105)
[2021-11-15 16:54] LABS: Glucose Point of Care 124 mg/dl (65-105)
[2021-11-16 03:00] VITALS: O2SAT 95
[2021-11-16 06:00] VITALS: BP 124/49; PULSE 68; RESP 16; TEMP 36.6; O2SAT 95
[2021-11-16] MEDS: LEVOTHYROXINE SODIUM 50 MCG TABLET PO (06:42)
[2021-11-16 07:42] LABS: Basophils Percent Auto 0.4 % (0.2-1.2); Eosinophils Absolute Auto 0.2 K/mm3 (0-0.3); Eosinophils Percent Auto 2.7 % (0-4.4); Hematocrit 34.6 % (42.0-52.0); Hemoglobin 10.4 g/dL (14.0-18.0); Immature Granulocyte Absolute 0.03 K/mm3 (0.00-0.031); Immature Granulocyte Percent A 0.4 % (0-0.5); Lymphocytes Absolute Auto 0.99 K/mm3 (0.9-3.2); Lymphocytes Percent Auto 12.8 % (18.3-44.2); Mean Corpuscular HGB Conc 30.1 g/dl (32-36); Mean Corpuscular Hemoglobin 29.2 pg (26-34); Mean Corpuscular Volume 97.2 fl (80-100); Mean Platelet Volume 12.4 fl (7.4-10.4); Monocytes Absolute Auto 0.7 K/mm3 (0.1-0.6); Monocytes Percent Auto 9.1 % (2.6-8.5); Neutrophils Absolute Auto 5.8 K/mm3 (1.3-6.7); Neutrophils Percent Auto 74.6 % (45.5-73.1); Platelet Count Result 153 k/mm3 (150-375); Red Blood Count 3.56 M/mm3 (4.6-6.20); Red Cell Distribution Width 17.2 % (11.5-14.5); White Blood Count 7.7 K/mm3 (4.5-10.0)
[2021-11-16 08:00] LABS: Glucose Point of Care 96 mg/dl (65-105)
[2021-11-16 08:12] LABS: Glucose Point of Care 119 mg/dl (65-105)
[2021-11-16] MEDS: CHOLECALCIFEROL 1,000 UNITS TABLET 5000 UNITS PO (09:09)
[2021-11-16 09:10] VITALS: PULSE 70
[2021-11-16] MEDS: ISOSORBIDE MONONITRATE 60 MG TAB.ER.24H PO (09:10)
[2021-11-16] MEDS: CLOPIDOGREL BISULFATE 75 MG TABLET PO (09:10)
[2021-11-16] MEDS: SACUBITRIL/VALSARTAN 49-51 MG TABLET 1 TABLET PO (09:10)
[2021-11-16] MEDS: ASPIRIN 81 MG ENTERIC TABLET PO (09:10)
[2021-11-16] MEDS: OPTI-GEN TAB 1 TABLET PO ×2 (09:10→16:55)
[2021-11-16] MEDS: ATORVASTATIN 40 MG TABLET 80 MG PO (09:10)
[2021-11-16] MEDS: carvediloL 12.5 MG TABLET PO (09:10)
[2021-11-16] MEDS: FUROSEMIDE INJ 40 MG/4 ML VIAL IV PUSH ×2 (09:15→16:59)
[2021-11-16] MEDS: INSULIN GLARGINE (*BKC) 100 UNITS/ML SUB-Q (09:15)
[2021-11-16 11:59] LABS: Glucose Point of Care 113 mg/dl (65-105)
[2021-11-16 14:00] VITALS: BP 106/52; PULSE 66; RESP 18; TEMP 36.8; O2SAT 94
--- NOTE | 2021-11-16 15:27 | PM.DS ---
DS: Admitting Diagnosis Discharge Date 11/16/21 Admitting Diagnosis (1) Acute exacerbation of CHF (congestive heart failure): (2) TOAN (acute kidney injury): # chronic conditions -CAD status post CABG x5: -vitamin-D deficiency: -insulin-dependent type 2 diabetes: -hypothyroidism: DS: Discharge Diagnosis Discharge Diagnosis (1) Acute exacerbation of CHF (congestive heart failure): Qualifiers: Heart failure type: unspecified Qualified Code(s): I50.9 - Heart failure, unspecified Code(s): I50.9 - Heart failure, unspecified Status: Acute Assessment and Plan: Lower extremity edemas are improving. Lungs are clear. Continue IV Lasix 40 mg IV b.i.d. continue fluid restriction 1500 cc. With patient's daily. (2) TOAN (acute kidney injury): Code(s): N17.9 - Acute kidney failure, unspecified Status: Acute Assessment and Plan: Likely due to prerenal versus ischemic ATN. There may be an element of Cardiorenal in the setting of acute heart failure DS: Summary Hospital Course Reason for hospitalization: Chief Complaint: Dyspnea, fluid overload Hospital Course: Please refer to admission H& P. Briefly, this a 76-year-old gentleman with a past medical history of CAD status post CABG x5, obstructive sleep apnea, hypertension, hyperlipidemia, congestive heart failure, CKD stage 4, presents to the ED with complaints of dyspnea and fluid overload. He follows Dr. Richmond for his heart failure. He follows Dr. Ureña for his renal failure. He had gained some weight over last couple days and shortness of breath. He had his previous hospitalization in July of 2021 with the same thing of CHF exacerbation. In the ED: Is found to be in fluid overload, creatinine around baseline at 2.3, elevated troponin 0.076 likely secondary to fluid overload, elevated BNP greater than 35,000. Chest x-ray consistent with CHF exacerbation. Was given 80 mg IV Lasix and had -800 net fluid output. Patient was due diuresis with IV Lasix with improvement of his respiratory symptoms. Edema improved but did not resolve completely. Patient was instructed to keep his leg elevated, continue water restriction 1800 cc and apply compression stock. He was discharged home on his regular home lasix regimen with instruction to follow up with Cardiology within a week, his primary care provider during the same period and his regularly scheduled Nephrology upcoming appointment in January. Patient voiced understanding and agree with his management.. Status at Discharge Functional status at discharge: uses cane/walker Overall status at discharge: patient is progressing back to baseline Time Spent with Patient Time attestation: Total time spent providing and/or coordinating discharge services:35 min. Time spent: Greater than 30 minutes Exam Narrative: - GENERAL: No acute distress. Well-nourished. Temperature 96? 28, pulse was 68, respirations 17, pulse ox 95, blood pressure 116/66. Intake 0.5 L. Output 1.15 L. Balance -600 mL - EYES: EOMI. Anicteric. - HENT: Moist mucous membranes. - LUNGS: Clear to auscultation apically, bibasilar rales. - CARDIOVASCULAR: Regular rate and rhythm. - ABDOMEN: Soft, non-tender and non-distended. No palpable masses. - : Golden catheter placed - EXTREMITIES: 3+ pitting bilateral lower extremity including pedal edema. Peripheral pulses 2+. Non-tender. - NEUROLOGIC: No focal neurological deficits. CN II-XII grossly intact. - PSYCHIATRIC: Awake, Alert and oriented x 3. Appropriate mood and affect. - SKIN: No rashes or lesions. Warm. - LYMPH: No cervical lymphadenopathy. DS: Data Data Completed and Pending Labs on day of discharge: Labs from last 24 hours 11/16/21 11/16/21 11/16/21 16:22 11:31 07:31 WBC RBC Hgb Hct MCV MCH MCHC RDW Plt Count MPV Immature Gran % (Auto) Neut % (Auto) Lymph % (Auto) Meagher % (Auto) Eos % (Auto) Baso % (Auto)
[2021-11-16 18:06] LABS: Glucose Point of Care 122 mg/dl (65-105)
== END 2021-11-16 17:45 | disposition home or self-care (01) | DRG 291 ==
LOC: ANHED 22:33 → ANH3MEDSUR 11-13 07:32
PROVIDERS: Student in an Organized Health Care Education/Training Program; Admitting Provider Internal Medicine; Emergency Provider Emergency Medicine; PCP Family Medicine; Visit Provider Internal Medicine
DX: I13.0 Hypertensive heart and chronic kidney disease with heart failure and stage 1 through stage 4 chronic kidney disease, or unspecified chronic kidney disease (principal); I50.43 Acute on chronic combined systolic (congestive) and diastolic (congestive) heart failure; N17.9 Acute kidney failure, unspecified; N18.4 Chronic kidney disease, stage 4 (severe); E11.22 Type 2 diabetes mellitus with diabetic chronic kidney disease; Z20.822 Contact with and (suspected) exposure to COVID-19; E78.5 Hyperlipidemia, unspecified; E03.9 Hypothyroidism, unspecified; E55.9 Vitamin D deficiency, unspecified; E11.51 Type 2 diabetes mellitus with diabetic peripheral angiopathy without gangrene; G47.33 Obstructive sleep apnea (adult) (pediatric); I25.10 Atherosclerotic heart disease of native coronary artery without angina pectoris; J44.9 Chronic obstructive pulmonary disease, unspecified; Z95.810 Presence of automatic (implantable) cardiac defibrillator; Z95.1 Presence of aortocoronary bypass graft; Z79.4 Long term (current) use of insulin; Z87.891 Personal history of nicotine dependence; Z86.718 Personal history of other venous thrombosis and embolism; Z79.82 Long term (current) use of aspirin; Z79.02 Long term (current) use of antithrombotics/antiplatelets
CPT/HCPCS: 36415; 51702; 71046; 80048; 80053; 82948; 83036; 83880; 84484; 85025; 85027; 85610; 85730; 87426; 87804; 93005; 96374; 96376; 99285; A9270; C9803; G0378; J1815; J1940

== ENCOUNTER 2021-12-06 09:03 | Inpatient (IN) | payer MEDICARE, SELFPAY ==
[2021-12-06] VITALS (32 sets, daily range): BP systolic 106–151; BP diastolic 61–86; PULSE 65–103; RESP 14–26; TEMP 36.1–36.8; O2SAT 90–100; BMI 34.9
--- NOTE | 2021-12-06 | ECHO_ITS ---
Patient Info Name: Jaime Morrell Age: 76 years : 1945 Gender: Male Ht: 66 in Wt: 227 lbs BSA: 2.23 m2 HR: 73 bpm BP: 145 / 76 mmHg Heart Rhythm: Sinus Rhythm Technical Quality: Poor Exam Date: 12/06/2021 2:27 PM Exam Location: [facility] Patient Status: Outpatient Admit Date: 12/06/2021 Staff Ordering Physician: Daylin Duron MD Ink Printer: Radha Ramirez RDCS Attending Provider: Clarita Soni MD Referring Physician: Oliverio CALDERON; Exam Type: CA echo dop color flow w con Study Info Indications - CHF Complete two-dimensional, color flow and Doppler transthoracic echocardiogram is performed with contrast to opacify the left ventricle and to improve the deliniation of the left ventricle endocardial borders. Contrast/Agitated Saline Contrast/Ag. Saline: Definity Amount: 3.00 ml Existing IV Access: Yes IV Access Condition: patent with no signs of infiltration Reason for Poor Study: poor echocardiographic windows Summary 1. Technically difficult study with limited views. 2. Left ventricular chamber dimension is moderately enlarged. 3. Left ventricular systolic function is moderately reduced, estimated at 30-35% with relative sparing of the apex.. 4. There is mildly increased left ventricular wall thickness. 5. The left ventricular diastolic function is grade II diastolic dysfunction. 6. Left atrial chamber dimension is moderate to severely enlarged. 7. There is mild mitral valve regurgitation. 8. There is mild tricuspid valve regurgitation. 9. Severe pulmonary hypertension, estimated pulmonary arterial systolic pressure is 62 mmHg. 10. Large left pleural effusion. Left Ventricle Left ventricular chamber dimension is moderately enlarged. Left ventricular systolic function is moderately reduced, estimated at 30-35% with relative sparing of the apex. There is mildly increased left ventricular wall thickness. The left ventricular diastolic function is grade II diastolic dysfunction. Right Ventricle Right ventricular chamber dimension is not well visualized. Right ventricular systolic function is reduced. Linear artifact in right ventricle suggestive of catheter(s), pacemaker lead(s), or ICD lead(s). Left Atria Left atrial chamber dimension is moderate to severely enlarged. Right Atria Right atrial chamber dimension is mildly enlarged. Linear artifact in the right atrium suggestive of catheter(s), pacemaker lead(s), or ICD lead(s). Aortic Valve The aortic valve is trileaflet. There is mild aortic valve sclerosis. There is no aortic valve stenosis. There is mild aortic valve regurgitation. Pulmonic Valve The pulmonic valve is not well visualized. There is mild pulmonic regurgitation. Mitral Valve The mitral valve has normal leaflets. There is mild mitral valve regurgitation. The mitral valve annulus is moderately calcified. Tricuspid Valve The tricuspid valve leaflets are normal. There is mild tricuspid valve regurgitation. Severe pulmonary hypertension, estimated pulmonary arterial systolic pressure is 62 mmHg. Pericardium/Pleural The pericardium appears not well visualized. Large left pleural effusion. Aorta The aortic root size at the sinus of Valsalva is normal. There is moderate aortic atherosclerosis. Left Ventricular Outflow Tract Name Value
--- NOTE | ~2021-12-06 | US_ITS ---
EXAMINATION: US venous doppler [facility] DATE: 12/07/2021 10:14 INDICATION: Lower limb edema. TECHNIQUE: Grayscale ultrasound images without and with compression and Doppler ultrasound images of the bilateral lower extremity veins were obtained. COMPARISON: Ultrasound 06/23/2021 FINDINGS: The visualized portions of right common femoral vein, profunda (deep) femoral vein, femoral vein, pop liteal vein, peroneal veins, posterior tibial veins, and greater saphenous vein outflow are patent. The visualized portions of left common femoral vein, profunda femoral vein, femoral vein, popliteal v ein, peroneal veins, posterior tibial veins, and greater saphenous vein outflow are patent. IMPRESSION: 1. No deep venous thrombosis. Reviewed, dictated and finalized at location A. R ENGINEER
--- NOTE | ~2021-12-06 | XR_ITS ---
EXAMINATION: XR chest 1V portable DATE: 12/11/2021 12:52 INDICATION: Shortness of breath. Reduced left-sided breath sounds. TECHNIQUE: A single frontal view of the chest was obtained. COMPARISON: Chest single view 12/08/2021, chest CT 10/20/2020, chest 2 views 12/06/2021 FINDINGS: There is a moderate-sized left pleural effusion. There are airspace opacities at the lung b ases. No pneumothorax. Cardiomegaly is noted. Median sternotomy wires and mediastinal surgical clips are seen, likely from prior coronary artery bypass grafting. There is a left chest pacer/defibrillato r with lead in right ventricle. IMPRESSION: 1. Stable moderate-sized left pleural effusion. 2. Stable airspace opacities at the lung bases, consistent with atelectasis versus mild pulmonary renetta ma versus pneumonia. 3. Cardiomegaly. Reviewed, dictated and finalized at location A. ON PAPER COATING MACHINE SETTER IMPRESSION: 1. Stable moderate-sized left pleural effusion. 2. Stable airspace opacities at the lung bases, consistent with atelectasis christel edd mild pulmonary edema versus pneumonia. 3. Cardiomegaly.
--- NOTE | ~2021-12-06 | XR_ITS ---
XR chest 1V portable 12/08/2021 08:25 Indication: Pulmonary edema Procedure: AP portable chest Comparison: Comparison to multiple prior studies sequentially, with oldest reviewed study dated 07/2020. Findings: Cardiomegaly. Status post median sternotomy for CABG. AICD lead tip in the right ventricle. Left basilar airspace disease is present. Possible small left effusion. Impression: 1: Retrocardiac airspace disease may represent atelectasis or pneumonia. 2: Cardiomegaly. Reviewed, dictated and finalized at location B. STACKER Impression: 1: Retrocardiac airspace disease may represent atelectasis or pneumonia. 2: Cardiomegaly.
--- NOTE | ~2021-12-06 | XR_ITS ---
EXAMINATION: XR chest 2V DATE: 12/06/2021 09:43 INDICATION: Shortness of breath. Cough. TECHNIQUE: Frontal and lateral views of the chest were obtained. COMPARISON: Chest 2 views 11/12/2021, chest CT 10/20/2020 FINDINGS: There is a moderate-sized left pleural effusion. There are airspace opacities at left lung base. There is a diffuse interstitial pattern, consistent with pulmonary edema. No pneumothorax. Card iomegaly is noted. Median sternotomy wires and mediastinal surgical clips are seen, likely from prior coronary artery bypass grafting. There is a left chest pacer/defibrillator with lead in right ventri jose maria. IMPRESSION: 1. Moderate-sized left pleural effusion with mild worsening. 2. Airspace opacities at left lung base, consistent with atelectasis versus pneumonia. 3. Mild pulmonary edema. 4. Cardiomegaly. Reviewed, dictated and finalized at location A. CH COMMUNICATION PROFESSOR IMPRESSION: 1. Moderate-sized left pleural effusion with mild worsening. 2. Airspace opacities at left lung base, consistent with atelectasis versus pne umonia. 3. Mild pulmonary edema. 4. Cardiomegaly.
--- NOTE | 2021-12-06 09:22 | ECG_ITS ---
Measurements Intervals [place] Rate: 77 P: 25 [place]: 159 QRS: 20 QRSD: 138 T: 156 QT: 426 QTc: 484 Interpretive Statements SINUS RHYTHM FREQUENT VENTRICULAR PREMATURE COMPLEXES INCOMPLETE LEFT BUNDLE BRANCH BLOCK CONSIDER INFERIOR INFARCT, AGE INDETERMINATE BORDERLINE ST-T WAVE ABNORMALITY- ANTEROLAT/HIGH LAT LEADS BASELINE ARTIFACT- I, II, III, AVR, AVL, AVF ABNORMAL ECG Electronically Signed On 12-06-2021 9:24:43 TAPPING MACHINE OPERATOR by Leon Mckeon D.O.
[2021-12-06 09:47] LABS: Alanine Aminotransferase 12 U/L (4-50); Albumin Level 3.9 g/dL (3.5-5.1); Alkaline Phosphatase 70 U/L (38-126); Anion Gap 10 mmol/L (8-16); Aspartate Amino Transferase 22 U/L (17-59); Bilirubin,Total 0.7 mg/dL (0.2-1.3); Blood Urea Nitrogen 45 mg/dL (9-20); Calcium 9.2 mg/dL (8.4-10.2); Carbon Dioxide 27 mmol/L (22-30); Chloride 106 mmol/L (98-107); Estimated CRCL calculation 27 ml/min; Estimated Glomerular Filt Rate 25; Glucose 119 mg/dL (65-110); Potassium 4.8 mmol/L (3.4-5.0); Sodium 143 mmol/L (137-145)
[2021-12-06 09:50] LABS: Basophils Absolute Auto 0.1 K/mm3 (0.0-0.1); Basophils Percent Auto 0.9 % (0.2-1.2); Eosinophils Absolute Auto 0.2 K/mm3 (0-0.3); Eosinophils Percent Auto 2.8 % (0-4.4); Hematocrit 38.7 % (42.0-52.0); Hemoglobin 11.4 g/dL (14.0-18.0); INR 1.1; Immature Granulocyte Absolute 0.02 K/mm3 (0.00-0.031); Immature Granulocyte Percent A 0.4 % (0-0.5); Immature Platelet Fraction Pct 9.6 % (0.9-11.2); Lymphocytes Absolute Auto 1.07 K/mm3 (0.9-3.2); Lymphocytes Percent Auto 18.9 % (18.3-44.2); Mean Corpuscular HGB Conc 29.5 g/dl (32-36); Mean Corpuscular Hemoglobin 28.8 pg (26-34); Mean Corpuscular Volume 97.7 fl (80-100); Monocytes Absolute Auto 0.6 K/mm3 (0.1-0.6); Monocytes Percent Auto 10.1 % (2.6-8.5); Neutrophils Absolute Auto 3.8 K/mm3 (1.3-6.7); Neutrophils Percent Auto 66.9 % (45.5-73.1); Platelet Count Result 142 k/mm3 (150-375); Prothrombin Time 14.5 Seconds (11.1-14.7); Red Blood Count 3.96 M/mm3 (4.6-6.20); Red Cell Distribution Width 17.3 % (11.5-14.5); White Blood Count 5.7 K/mm3 (4.5-10.0)
--- NOTE | 2021-12-06 09:50 | ED.GENADULT ---
HPI - General Adult General Chief complaint: Shortness of Breath/Dyspnea Stated complaint: SOB, Weakness Time Seen by Provider: 12/06/21 09:22 Source: patient and RN notes reviewed History of Present Illness HPI narrative: Patient is a 76 y/o male complaining of weakness and a fall prior to arrival. He states that he slid out of bed this morning. He has chronic bilateral knee pain, but denies new pain. He has mild SOB for last 2 days. He states that he is on 2L O2 at night, but he does not use O2 during the day. He also has some chest pain and cough. He has no fever. Related Data Home Medications Medication Instructions Recorded Confirmed atorvastatin 80 mg tablet 80 mg PO DAILY 09/23/19 12/06/21 Entresto 1 tablet PO Q12H 01/08/20 12/06/21 PreserVision AREDS-2 1 cap PO Q12H 10/20/20 12/06/21 aspirin 81 mg tablet,delayed 81 mg PO DAILY 01/19/21 12/06/21 release carvedilol 12.5 mg tablet 12.5 mg PO Q12H 01/19/21 12/06/21 furosemide 40 mg tablet 40 mg PO Q12H tablet 01/19/21 12/06/21 Basaglar KwikPen U-100 Insulin 5 unit SUBCUT QAM 08/02/21 12/06/21 cholecalciferol (vitamin D3) 125 mcg PO HS 08/02/21 12/06/21 isosorbide mononitrate 60 mg PO DAILY 08/02/21 12/06/21 Allergies Allergy/AdvReac Type Severity Reaction Status Date / Time Penicillins Allergy Severe unknown Verified 11/14/21 12:49 Review of Systems Constitutional: Constitutional: Denies chills, Denies fever(s), Denies headache(s) and Denies weakness Eyes: Eyes: Denies blurry vision ENT: Denies headache(s) and Denies neck pain Cardiovascular: Cardiovascular: Reports chest pain and Reports dyspnea Respiratory: Respiratory: Reports cough and Reports dyspnea Gastrointestinal: Gastrointestinal: Denies abdominal pain, Denies diarrhea, Denies nausea and Denies vomiting Genitourinary: Genitourinary: Denies hematuria and Denies dysuria Musculoskeletal: Musculoskeletal: Reports as per HPI, Denies back pain, Denies neck pain and Reports other (bilateral knee pain) Neurologic: Denies headache(s) and Reports weakness PMFSH Past Medical History Medical History (Updated 12/06/21 @ 16:31 by Daylin Duron MD) Abdominal aortic aneurysm Arthritis Carotid stenosis, bilateral Carpal tunnel syndrome Chronic anemia Chronic kidney disease, stage 4 (severe) COPD (chronic obstructive pulmonary disease) 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 Deep venous thrombosis Essential hypertension Gastroesophageal reflux disease Heart failure with reduced ejection fraction Echo in 07/2021: 1. Technically difficult study with limited views. 2. Moderately reduced LF function with an EF estimated at 30-35% with hypokinesis of the mid to basal anterolateral, inferior, anterior, and basal inferoseptal arroyo with relative sparing of the apex. 3. Mildly increased LV wall thickness. 4. Left atria is moderately enlarged. 5. Mild tricuspid valve regurgitation. 6. Severe pulmonary hypertension with an estimated pulmonary arterial systolic pressure of 65 mmHg. Hypothyroidism Insulin dependent type 2 diabetes mellitus Mixed hyperlipidemia Obstructive sleep apnea Intolerant to CPAP. Wears oxygen at nighttime. Pancreatitis Peripheral vascular disease Psoriasis Umbilical hernia without obstruction and without gangrene Surgical History Surgical History (Updated 12/06/21 @ 15:03 by Joselyn Story PA-C) H/O abdominal surgery Revascularization to renal arteries and mesenteric artery H/O fasciotomy Right leg History of cataract extraction History of embolectomy Right leg History of stent insertion of renal artery History of tonsillectomy Hx of CABG Initially 5 vessel CABG and later on he had 1 that was redone now for those vessels are occluded he has collateral only 1 vessel is pain Hx of cardiac catheterization Multiple times Presence of combination internal cardiac defibrillator (ICD) and pacemaker S/P carotid endarterectomy Family
[2021-12-06 09:51] LABS: Partial Thromboplastin Time 32.2 SECONDS (22.3-36.8)
[2021-12-06 10:01] LABS: NT Pro B Type Natriuretic Pept > 35000 pg/mL (5-100); Troponin I 0.087 ng/mL (0.000-0.034)
[2021-12-06 10:09] LABS: Platelet Estimate Adequate (Adequate)
[2021-12-06 10:10] LABS: Acanthocytes 2+ (NORMAL); Anisocytosis 1+ (NORMAL); Ovalocytes 2+ (NORMAL)
[2021-12-06 10:33] LABS: SARS-CoV-2 RNA PCR Negative
[2021-12-06] MEDS: FUROSEMIDE INJ 40 MG/4 ML VIAL IV PUSH ×2 (11:42→16:22)
--- NOTE | 2021-12-06 14:05 | ADMGEN ---
This patient, Jaime Morrell, was admitted to IMU Room 211-01. Patient/family oriented to hospital policies and general routines including ID bracelet, bed and alarms, visiting hours, pain management, procedures, bathroom and other care routines, personal items, smoking policy, room service/diet, and visiting hours. Information on how to activate the Rapid Response Team has been discussed. Patient/Family are encouraged to report perceived risks to care and to ask questions if they do not understand what they are told or what they should do.
--- NOTE | 2021-12-06 14:45 | PM.IMHP ---
H&P: HPI History of Present Illness Date/Time: 12/06/21 14:45 Chief Complaint: Shortness of breath and weakness. Narrative: This is a 76-year-old male with multiple medical problems including congestive heart failure with reduced ejection fraction, coronary artery disease, peripheral vascular disease, hypertension, insulin dependent diabetes, and several other comorbidities who presented to the emergency department via EMS from home for evaluation of shortness of breath and weakness. He was recently admitted to the hospital at the beginning of the month with acute CHF exacerbation as well as acute kidney injury. He was diuresed with improvement in his volume overload and renal function remained steady. He has done well over the past couple of weeks though within the last 5 days or so he has noticed increasing edema up to the flanks as well as progressive dyspnea on lesser and lesser exertion. It is to the point that he is winded even when attempting to reposition himself in bed. Chest x-ray done today on arrival shows moderate-sized left pleural effusion with mild worsening as well as findings of mild pulmonary edema and cardiomegaly. Troponin was also mildly elevated but has remained flat. The patient has not had any chest pain, palpitations, or pleuritic pain. He denies fever, chills, sweats, sinus congestion, sore throat, nausea, vomiting, and diarrhea. No sick contacts. He admits that he is not always mindful with the amount of liquids he consumes or the amount of salt that he eats.He has not had any recent change in medications however mentions that within the last 6 months or so he was taken off of spironolactone due to worsening renal function and ongoing hyperkalemia. Review of Systems Review of Systems: Twelve systems were reviewed and are negative except for as per HPI. 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 Technically difficult study with limited views. 2. Moderately reduced LF function with an EF estimated at 30-35% with hypokinesis of the mid to basal anterolateral, inferior, anterior, and basal inferoseptal arroyo with relative sparing of the apex. 3. Mildly increased LV wall thickness. 4. Left atria is moderately enlarged. 5. Mild tricuspid valve regurgitation. 6. Severe pulmonary hypertension with an estimated pulmonary arterial systolic pressure of 65 mmHg. Hypothyroidism Insulin dependent type 2 diabetes mellitus Mixed hyperlipidemia Obstructive sleep apnea Intolerant to CPAP. Wears oxygen at nighttime. Pancreatitis Peripheral vascular disease Psoriasis Umbilical hernia without obstruction and without gangrene Surgical History Surgical History (Updated 12/06/21 @ 15:03 by Joselyn Story PA-C) H/O abdominal surgery Revascularization to renal arteries and mesenteric artery H/O fasciotomy Right leg History of cataract extraction History of embolectomy Right leg History of stent insertion of renal artery History of tonsillectomy Hx of CABG Initially 5 vessel CABG and later on he had 1 that was redone now for those vessels are occluded he has collateral only 1 vessel is pain Hx of cardiac catheterization Multiple times Presence of combination internal cardiac defibrillator (ICD) and pacemaker S/P carotid endarterectomy Family History Family History Mother Hypertension Family history of coronary artery disease Father Acute myocardial infarction Family history of coronary artery di
[2021-12-06] MEDS: PERFLUTREN LIPID MICROSPHERES 1.5 ML VIAL DILUTED TO 10 ML TOTAL VOLUME IV PUSH (15:17)
[2021-12-06 16:55] LABS: Glucose Point of Care 101 mg/dl (65-105)
[2021-12-06 17:17] LABS: Troponin I 0.075 ng/mL (0.000-0.034)
[2021-12-06 20:57] LABS: Glucose Point of Care 126 mg/dl (65-105)
[2021-12-06 22:46] LABS: Troponin I 0.066 ng/mL (0.000-0.034)
[2021-12-07] VITALS (19 sets, daily range): BP systolic 117–132; BP diastolic 42–93; PULSE 57–81; RESP 20–24; TEMP 36.2–36.6; O2SAT 95–100
[2021-12-07] MEDS: CHOLECALCIFEROL 1,000 UNITS TABLET 5000 UNITS PO ×2 (00:35→22:42)
[2021-12-07] MEDS: OPTI-GEN TAB 1 TABLET PO ×3 (00:35→22:42)
[2021-12-07] MEDS: carvediloL 12.5 MG TABLET PO ×3 (00:36→22:41)
[2021-12-07] MEDS: SACUBITRIL/VALSARTAN 49-51 MG TABLET 1 TABLET PO ×3 (00:36→22:42)
[2021-12-07 05:32] LABS: Anion Gap 9 mmol/L (8-16); Blood Urea Nitrogen 46 mg/dL (9-20); Calcium 9.2 mg/dL (8.4-10.2); Carbon Dioxide 25 mmol/L (22-30); Chloride 107 mmol/L (98-107); Estimated CRCL calculation 24 ml/min; Estimated Glomerular Filt Rate 23; Glucose 100 mg/dL (65-110); Magnesium 2.2 mg/dL (1.6-2.3); Sodium 141 mmol/L (137-145)
[2021-12-07] MEDS: LEVOTHYROXINE SODIUM 50 MCG TABLET PO (06:33)
[2021-12-07 08:46] LABS: Glucose Point of Care 86 mg/dl (65-105)
--- NOTE | 2021-12-07 11:09 | PM.CNCAR ---
Assessment and Plan Additional Plan This is a 76-year-old man with a longstanding ischemic cardiomyopathy as described above. He is developing near end-stage ischemic heart disease in my opinion as he has no opportunity for further revascularization and despite a very good medical regimen has decompensated heart failure and declining renal function. I am going to recommend advancing his furosemide to 80 mg q.12 hours and starting a low-dose dobutamine infusion to augment cardiac output hopefully effective diuresis. This gentleman is very realistic and understands that his prognosis is poor. Despite this he still wishes to be a full code. We will follow him with you during this hospitalization. Yehuda Richmond MD [facility] History of Present Illness History of Present Illness Consult date/time: Date of service: 12/07/21 11:09 Consult reason: congestive heart failure Reason For Visit: chf Narrative: This is a very pleasant but saw also unfortunate 76-year-old man with longstanding ischemic heart disease who I see for many years in the office. He is in the hospital with decompensated congestive heart failure and because of this I am asked to see him in consultation. The patient has had declining left ventricular systolic function for a number of years and came into the hospital last evening because he was at home he said he stood up and was can ambulate to the bathroom when he got up out of bed he was weak and he fell to the floor in his bedroom. He called his family on the cell phone they came to see him and found to be somewhat short of breath so they brought him to the emergency room for further assessment. In the emergency room and in the hospital he is found to be significantly volume overloaded with bilateral lower extremity edema per treatment ascites in his abdomen and some bilateral pulmonary congestion. His chest x-ray shows massive cardiomegaly as well. The patient is not reporting any sense of ischemic chest pain. He has been my patient for many years and he is been seen in the office as recently as the end of September at which time he appeared to be doing reasonably well although obviously living with very poor LV function. The patient has history of coronary disease dates back to many years ago when he underwent coronary bypass surgery. He had a redo operation also many years ago. That was done for left main disease and high-grade circumflex disease. He for many years has been known to have total occlusion of his chemehuevi coronary circulation. He has been hospitalized a couple of times in the last several years with congestive heart failure here at [facility]. In 2019 he was felt to have significant ischemic burden on nuclear stress testing was transferred to [facility] for a follow-up angiogram because of his high risk anatomy. At that time he once again he was found to have no patent chemehuevi coronary circulation all of his grafts were occluded except for 1 of his remaining saphenous vein graft to the LAD. That graft is more than a couple of decades old at this time. He has been placed on medication for congestive heart failure and despite all this has been relatively well compensated he does have a implantable ICD because of his poor LV function. In this setting he is being seen in consultation states that he still has a positional shortness of breath when he lies down in his bed I came in the room to see him he sitting up in his chair watching television the feet are on the floor with moderate bilateral edema. Also of concern is as his cardiomyopathy has been progressing his renal function has also been declining. BUN is currently 46 with a creatinine of 2.7. Medical regimen at home for heart failure consists of carvedilol 12.5 mg q.12 hours, Entresto 24/261 tablet daily. He also takes isosorbide, furosemide 40 mg q.12 hours and aspirin with a tore the statin. He is also being maintained on clopidogrel 75 mg daily. Review of Systems Constitution
[2021-12-07] MEDS: INSULIN GLARGINE (*BKC) 100 UNITS/ML SUB-Q (11:25)
[2021-12-07] MEDS: CLOPIDOGREL BISULFATE 75 MG TABLET PO (11:25)
[2021-12-07] MEDS: ATORVASTATIN 40 MG TABLET 80 MG PO (11:25)
[2021-12-07] MEDS: ISOSORBIDE MONONITRATE 60 MG TAB.ER.24H PO (11:26)
[2021-12-07] MEDS: ASPIRIN 81 MG ENTERIC TABLET PO (11:26)
[2021-12-07] MEDS: DOBUTamine 250 MG/D5W 250 ML 250 MG/250 ML BAG 15.09 MG IV CONT (11:27)
[2021-12-07] MEDS: FUROSEMIDE INJ 100 MG/10 ML VIAL 80 MG IV PUSH ×2 (11:27→16:31)
[2021-12-07 12:47] LABS: Glucose Point of Care 109 mg/dl (65-105)
--- NOTE | 2021-12-07 16:19 | PM.CNNEP ---
Assessment and Plan Assessment and plan (1) Chronic kidney disease, stage IV (severe): Code(s): N18.4 - Chronic kidney disease, stage 4 (severe) Status: Chronic Assessment and Plan: baseline creatinine runs ~ 2.0 - 2.5mg/dl due to a combination of HTN, DM, vascular disease, age and an element of cardiorenal syndrome(CHF) based on outpatient evaluation anticipate further fluctuations in kidney function during this hositalization follow repeat labs and UOP (2) Acute on chronic systolic (congestive) heart failure: Code(s): I50.23 - Acute on chronic systolic (congestive) heart failure Status: Acute Assessment and Plan: Cardiology recommendations noted IV dobutamine + IV diuretics follow I/O, daily weights, and exam (3) Essential hypertension: Code(s): I10 - Essential (primary) hypertension Status: Chronic Assessment and Plan: reasonable control at this time follow trend of hemodynamics (4) Chronic anemia: Code(s): D64.9 - Anemia, unspecified Status: Chronic Assessment and Plan: likely partly due to CKD no need for ESAs at this time follow trend of H/H (5) Diabetes: Code(s): E11.9 - Type 2 diabetes mellitus without complications Status: Chronic Assessment and Plan: follow accuchecks glycemic control Will continue to follow. History of Present Illness Reason for Consult Consult date: 12/07/21 Reason for consult: chronic renal failure Chief Complaint Chief complaint: chf History of Present Illness Narrative: The patient is a very pleasant 76-year-old male with multiple medical problems as outlined below who presented to [facility] Emergency room for further evaluation of shortness of breath and weakness. The patient was just recently admitted to the hospital earlier this month for an acute CHF exacerbation in association with acute kidney injury. He was aggressively diuresed with improvement in his volume status and his renal function remained relatively stable during that hospital stay. He was subsequently discharged in reasonable health at that time. He had been doing reasonably well following discharge but then within the last 5-7 days prior to admission he noticed increasing edema in his lower extremities and flank area as well as ongoing / progressive shortness of breath both at rest and with minimal exertion. Eventually, his breathing got to the point that when just really positioning is self in bed would cause a decline in his respiratory status/breathing. His shortness of breath progressively worsened to the point where even doing activities of daily living was becoming a struggle and hence EMS was called and he was transported to the ER for further evaluation. Workup and evaluation emergency room demonstrated the patient to be hemodynamically stable but he seemed to be in [id number] respiratory distress. Chest x-ray demonstrated moderate size left pleural effusion in association with pulmonary vascular congestion and cardiomegaly. He denies any symptoms of chest pain, palpitations, fevers, chills night sweats, sore throat, nausea, vomiting, or diarrhea. Routine blood tests were consistent with his known history of chronic kidney disease and chronic anemia. He has been compliant with his medications but does admit that sometimes he does not always stick to a fluid restriction or watch the amount of salt that he takes in. Given his constellation of symptoms in conjunction with his laboratory findings and imaging studies, he was admitted the hospital for further evaluation and therapy. Renal consultation was requested due to his chronic kidney disease. The patient is somewhat familiar to me as I take care of his outpatient chronic kidney disease management. His baseline creatinine in the last year so has been running around 2-2.5 mg/dL and is felt to be secondary to a combination of his hype
[2021-12-07 17:25] LABS: Glucose Point of Care 133 mg/dl (65-105)
--- NOTE | 2021-12-07 17:38 | PM.IMPN ---
Progress Note: A&P Assessment and Plan (1) Acute exacerbation of congestive heart failure: Code(s): I50.9 - Heart failure, unspecified Status: Acute Assessment and Plan: 2nd hospitalization for the same in the last 1 month. Patient admits he is not always mindful of his salt and oral intake. Continue IV diuresis with Lasix 40 mg b.i.d. Monitor I/ O and renal function while diuresing. Continue beta-teresa and Entresto. Consult Cardiology given recurrent hospitalization. (2) Elevated troponin: Code(s): R77.8 - Other specified abnormalities of plasma proteins Status: Acute Assessment and Plan: Patient has no chest pain likely these are elevated in the setting of congestive heart failure and renal disease. Trend troponins to peak. Consult cardiology as detailed above. Continue dual antiplatelet therapy, beta-teresa, and statin. (3) Chronic kidney disease, stage 4 (severe): Code(s): N18.4 - Chronic kidney disease, stage 4 (severe) Status: Acute Assessment and Plan: Creatinine is near baseline. Monitor renal function daily while diuresing. (4) Chronic anemia: Code(s): D64.9 - Anemia, unspecified Status: Acute Assessment and Plan: Hemoglobin and hematocrit are stable on review of previous labs. (5) Essential hypertension: Code(s): I10 - Essential (primary) hypertension Status: Chronic Assessment and Plan: Blood pressures were reviewed and they are stable and within acceptable range. Continue antihypertensives and monitor blood pressures daily. (6) Hypothyroidism: Code(s): E03.9 - Hypothyroidism, unspecified Status: Acute Assessment and Plan: Continue levothyroxine and check TSH. (7) Insulin dependent type 2 diabetes mellitus: Code(s): E11.9 - Type 2 diabetes mellitus without complications; Z79.4 - terminal make up operator (current) use of insulin Status: Acute Assessment and Plan: Recent hemoglobin A1c was 6.4%. Continue basal insulin. Initiate sliding scale insulin, Accu-Cheks, and hypoglycemic protocol. Subjective Date/time seen: 12/07/21 11:38 S: Patient was seen examined at the bedside. He reports bilateral lower extremity swelling up to his abdomen. Review of Systems Review of Systems: All systems reviewed & are unremarkable except as noted in HPI and below Exam Narrative: General: Chronically ill-appearing male sitting up in bed in no distress. Weight: 100.6 kg. BMI: 35.8. HEENT: Normocephalic, atraumatic. PERRL, EOMI. Sclerae anicteric. Oral mucosa moist. Neck: Supple. No obvious JVD though exam limited due to full ramirez and positioning. Respiratory: Respirations are nonlabored and he is speaking in full sentences. Diminished breath sounds at the bases, left greater than right, with faint crackles. Cardiovascular: Regular rate and rhythm with S1-S2. Gastrointestinal: Abdomen Obese with positive bowel sounds. Nontender to palpation. Pitting edema to the flanks. Skin: Warm and dry. Extremities: No cyanosis or clubbing. He has significant pitting edema up to the flanks. Negative Beata sign. Neurological: Alert. Cranial nerves 2-12 are grossly intact. No gross focal deficits to casual conversation. Psychiatric: Pleasant and cooperative with normal mood and affect. Judgment and insight intact. Objective Data Vital Signs Vital Signs: Vital Signs - 24 hr 12/06/21 18:00 12/06/21 20:00 12/06/21 22:00 Temperature 98.2 F Pulse Rate 72 71 78 Respiratory Rate 22 H Blood Pressur
[2021-12-07 20:17] LABS: Glucose Point of Care 140 mg/dl (65-105)
[2021-12-08] VITALS (14 sets, daily range): BP systolic 99–141; BP diastolic 47–91; PULSE 59–87; RESP 16–22; TEMP 36.1–36.8; O2SAT 94–100
[2021-12-08] MEDS: DOBUTamine 250 MG/D5W 250 ML 250 MG/250 ML BAG 15.09 MG IV CONT ×2 (02:18→21:30)
[2021-12-08 08:40] LABS: Glucose Point of Care 104 mg/dl (65-105)
[2021-12-08] MEDS: ASPIRIN 81 MG ENTERIC TABLET PO (09:12)
[2021-12-08] MEDS: CLOPIDOGREL BISULFATE 75 MG TABLET PO (09:12)
[2021-12-08] MEDS: ATORVASTATIN 40 MG TABLET 80 MG PO (09:12)
[2021-12-08] MEDS: LEVOTHYROXINE SODIUM 50 MCG TABLET PO (09:12)
[2021-12-08] MEDS: OPTI-GEN TAB 1 TABLET PO ×2 (09:12→21:30)
[2021-12-08] MEDS: carvediloL 12.5 MG TABLET PO ×2 (09:13→21:29)
[2021-12-08] MEDS: SACUBITRIL/VALSARTAN 49-51 MG TABLET 1 TABLET PO ×2 (09:13→21:30)
[2021-12-08] MEDS: ISOSORBIDE MONONITRATE 60 MG TAB.ER.24H PO (09:13)
[2021-12-08] MEDS: FUROSEMIDE INJ 100 MG/10 ML VIAL 80 MG IV PUSH ×2 (09:14→17:07)
[2021-12-08] MEDS: INSULIN GLARGINE (*BKC) 100 UNITS/ML SUB-Q (09:14)
--- NOTE | 2021-12-08 10:36 | PM.PNCARD ---
Progress Note: A&P Assessment and Plan (1) Acute on chronic systolic (congestive) heart failure: Code(s): I50.23 - Acute on chronic systolic (congestive) heart failure <GENEVA Lino - Last Filed: 12/08/21 11:26> Status: Acute <GENEVA Lino - Last Filed: 12/08/21 11:26> Assessment and Plan: Presented with shortness of breath and significant LE edema. This is his second hospitalization this month for acute CHF. He has been placed on a dobutamine drip to augment diuresis and his IV furosemide was advanced to 80mg b.i.d. He has made good urine in the past 24 hours and has had some improvement in swelling and is no longer short of breath. Continue TUBE BENDER at 2.5mcg/kg/min Continue furosemide 80mg IV b.i.d. Compression stockings Accurate I&O daily weights Daily BMP while on inotrope and diuretic. <GENEVA Lino - Last Filed: 12/08/21 11:26> (2) Ischemic cardiomyopathy: Code(s): I25.5 - Ischemic cardiomyopathy <GENEVA Lino - Last Filed: 12/08/21 11:26> Status: Acute <GENVEA Lino - Last Filed: 12/08/21 11:26> Assessment and Plan: Significant coronary artery disease resulting in ischemic cardiomyopathy with an EF of 30-35%. He is on medical therapy with Entresto and coreg. <GENEVA Lino - Last Filed: 12/08/21 11:26> (3) Coronary artery 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: Code(s): I25.810 - Atherosclerosis of coronary artery bypass graft(s) without angina pectoris <GENEVA Lino - Last Filed: 12/08/21 11:26> Status: Acute <GENEVA Lino - Last Filed: 12/08/21 11:26> Assessment and Plan: Extensive coronary artery disease with complete total occlusion of all [place] arteries, does have supply of his LAD from [facility]. LHC ~2 years ago at [facility] did not reveal any opportunities for revascularization as he had no patent [place] coronary arteries. <GENEVA Lino - Last Filed: 12/08/21 11:26> (4) CKD (chronic kidney disease): Qualifiers: Chronic kidney disease stage: unspecified stage Qualified Code(s): N18.9 - Chronic kidney disease, unspecified <GENEVA Lino - Last Filed: 12/08/21 11:26> Code(s): N18.9 - Chronic kidney disease, unspecified <GENEVA Lino - Last Filed: 12/08/21 11:26> Status: Acute <GENEVA Lino - Last Filed: 12/08/21 11:26> Assessment and Plan: Stage 3 CKD with baseline creatinine 2.0 - 2.5. Nephrology is following along, appreciate their input and recommendations. <GENEVA Lino - Last Filed: 12/08/21 11:26> Additional Plan Attending Addendum: I have personally seen and examined this patient at bedside. I agree with the above documentation and plan of care as outlined. -he feels better on dobutamine with fair diuresis. Renal function stable. He is tolerating this hemodynamically. States his breathing is improved edema persists although slightly improved. Abdomen feels tight still but better. No new issues overnight. Exam: NAD, A&Ox3, nonfocal neuro exam quite talkative but very pleasant No JVD Lungs diminished breath sounds diffusely no clear rales or wheezes Cardio RRR, S1/S2 systolic murmur Abd distended, firm nontender, +BS Ext 2 to 3+ equal pitting lower extremity edema extending up to the abdomen healed median sternotomy scar Plan of Care: Reduce carvedilol to 6.25 mg twice daily. Continue dobutamine. Accurate input and output, daily weight. Lasix 80 mg IV b.i.d.. Monitor renal function electrolytes closely. Remains on dual antiplatelet therapy. Continue Entresto as BP permits. Consultation extensively in our favor cautions in the importance of very low-sodium diet, daily weight and communication with weight gain edema and abdominal fullness. Patient verbalizes understanding states he now more fully understa
--- NOTE | 2021-12-08 11:14 | PM.PNNEP ---
Progress Note: A&P Assessment and Plan (1) Chronic kidney disease, stage IV (severe): Code(s): N18.4 - Chronic kidney disease, stage 4 (severe) Status: Chronic Assessment and Plan: baseline creatinine runs ~ 2.0 - 2.5mg/dl due to a combination of HTN, DM, vascular disease, age and an element of cardiorenal syndrome(CHF) based on outpatient evaluation his creatinine is a little bit higher today. This may just be normal fluctuation. Will check another creatinine tomorrow He is on Lasix 80 b.i.d. for his volume overload He is eating well. (2) Acute on chronic systolic (congestive) heart failure: Code(s): I50.23 - Acute on chronic systolic (congestive) heart failure Status: Acute Assessment and Plan: Cardiology recommendations noted IV dobutamine + IV diuretics He made more urine overnight, 1925 so far. Continue current therapy. Repeat creatinine tomorrow. (3) Essential hypertension: Code(s): I10 - Essential (primary) hypertension Status: Chronic Assessment and Plan: Systolic 130-140. He is on carvedilol and Entresto for his heart and this has been keeping his blood pressure in check as well. (4) Chronic anemia: Code(s): D64.9 - Anemia, unspecified Status: Chronic Assessment and Plan: likely partly due to CKD no need for ESAs at this time Check CBC in the morning (5) Diabetes: Code(s): E11.9 - Type 2 diabetes mellitus without complications Status: Chronic Assessment and Plan: On Accu-Cheks and sliding-scale insulin Will continue to follow. Subjective Date/time seen: 12/08/21 11:14 Interval history: Patient is sitting at the side of the bed. He is comfortable. He is on a dobutamine drip. Breathing is a little bit better. Review of Systems Cardiovascular: Cardiovascular: Reports no additional cardiovascular complaints Respiratory: Respiratory: Reports no additional respiratory complaints Gastrointestinal: Gastrointestinal: Reports no additional gastrointestinal complaints Genitourinary: Genitourinary: Reports no additional male genitourinary complaints Exam Narrative: WDWN gentleman in NAD skin no rash head ncat lungs clear cor reg no rub abd BS+ nontender and soft ext trace edema. Objective Data Vital Signs Vital Signs: Vital Signs - 24 hr 12/07/21 11:25 12/07/21 11:27 12/07/21 12:00 Temperature 36.3 C L Pulse Rate 57 L 60 74 Respiratory Rate 20 Blood Pressure 126/75 Pulse Oximetry 95 12/07/21 14:00 12/07/21 16:00 12/07/21 18:00 Temperature 36.2 C L Pulse Rate 63 57 L 71 Respiratory Rate 20 Blood Pressure 126/43 L Pulse Oximetry 100 12/07/21 20:00 12/07/21 21:30 12/07/21 22:00 Temperature 36.2 C L Pulse Rate 66 74 Respiratory Rate 20 Blood Pressure 125/42 L 125/42 L Pulse Oximetry 98 12/07/21 22:41 12/08/21 00:00 12/08/21 02:00 Temperature 36.3 C L Pulse Rate 71 69 77 Respiratory Rate 20 Blood Pressure 132/59 L Pulse Oximetry 97 12/08/21 04:00 12/08/21 06:00 12/08/21 08:00 Temperature 36.6 C 36.4 C L Pulse Rate 71 71 65 Respiratory Rate 20 16 Blood Pressure 141/59 H 134/91 H Pulse Oximetry 98 100 12/08/21 09:13 Temperature Pulse Rate 65 Respiratory Rate Blood Pressure Pulse Oximetry Intake/Output Intake/Output: Intake & Output 12/05/21 12/06/21 12/07/21 12/08/21 23:59 23:59 23:59 23:59 Intake Total 240 920 745 Output Total 750 1925 Balance 240 170 -1180 Meds/Results Medications: Active Medications Generic Name Dose Route Start Last Admin Trade Name Arunq PRN Reason Stop Dose Admin Aspirin 81 mg 12/07/21 09:00 12/08/21 09:12 Aspirin 81 Mg Enteric Tablet PO 81 mg DAILY JEFF Administration Atorvastatin Calcium 80 mg 12/07/21 09:00 12/08/21 09:12 Atorvastatin 40 Mg Tablet PO 80 mg DAILY JEFF Administration Carvedilol 12.5 mg 12/07/21 00:00 12/08
--- NOTE | 2021-12-08 11:56 | PM.IMPN ---
Progress Note: A&P Assessment and Plan (1) Acute exacerbation of congestive heart failure: Code(s): I50.9 - Heart failure, unspecified Status: Acute Assessment and Plan: 2nd hospitalization for the same in the last 1 month. Patient admits he is not always mindful of his salt and oral intake. Continue IV diuresis with Lasix 80 mg b.i.d. Continue the Pt Amen at 2.5mcg/kg/min Compression stockings Elevation of the legs Accurate I&O daily weights Daily BMP while on inotrope and diuretic. Monitor I/ O and renal function while diuresing. Continue beta-teresa and Entresto. Cardiology is consulting. We appreciate their recommendations. (2) Elevated troponin: Code(s): R77.8 - Other specified abnormalities of plasma proteins Status: Acute Assessment and Plan: Patient has no chest pain likely these are elevated in the setting of congestive heart failure and renal disease. Trend troponins to peak. Consult cardiology as detailed above. Continue dual antiplatelet therapy, beta-teresa, and statin. (3) Chronic kidney disease, stage 4 (severe): Code(s): N18.4 - Chronic kidney disease, stage 4 (severe) Status: Acute Assessment and Plan: Creatinine is near baseline. Baseline creatinine in the 2-2.5 range. Mild fluctuation of creatinine, expected in the setting of congestive heart failure. This may be an element of cardiorenal syndrome. Kidney function is expected to improve as lower extremity edema and cardiac venous congestion get better. Monitor renal function daily while diuresing. (4) Chronic anemia: Code(s): D64.9 - Anemia, unspecified Status: Chronic Assessment and Plan: Hemoglobin and hematocrit are stable on review of previous labs. Obtain iron profile. (5) Essential hypertension: Code(s): I10 - Essential (primary) hypertension Status: Chronic Assessment and Plan: Blood pressures were reviewed and they are stable and within acceptable range. Systolic blood pressures have been in the 125/40 2-140 1/59 range. Continue cardioprotective medications and monitor blood pressures daily. (6) Hypothyroidism: Code(s): E03.9 - Hypothyroidism, unspecified Status: Acute Assessment and Plan: Continue levothyroxine. TSH was 3.8 (7) Insulin dependent type 2 diabetes mellitus: Code(s): E11.9 - Type 2 diabetes mellitus without complications; Z79.4 - alf (current) use of insulin Status: Acute Assessment and Plan: Recent hemoglobin A1c was 6.4%. Fasting blood glucose was 100. Accu-Cheks in the 86-140 range. Continue basal insulin. Continue sliding scale insulin, Accu-Cheks, and hypoglycemic protocol. Subjective Date/time seen: 12/08/21 11:56 S: Patient was seen examined at the bedside. He reports bilateral lower extremity edema is. His edema has been improving slightly. He made close to 2 L of urine output overnight. Review of Systems Review of Systems: All systems reviewed & are unremarkable except as noted in HPI and below Constitutional: Constitutional: Reports as per HPI and Reports no additional constitutional complaints Eyes: Eyes: Reports as per HPI and Reports no additional eye complaints ENT: Reports system reviewed and no additional complaints, except as documented and Reports as per HPI Cardiovascular: Cardiovascular: Reports as per HPI, Reports pedal edema and Reports leg edema Comments: Bilateral lower extremity edema extending to the abdomen. Respiratory: Respiratory: Reports as per HP
[2021-12-08 13:46] LABS: Glucose Point of Care 130 mg/dl (65-105)
[2021-12-08 13:50] LABS: Anion Gap 5 mmol/L (8-16); Blood Urea Nitrogen 44 mg/dL (9-20); Calcium 9.2 mg/dL (8.4-10.2); Carbon Dioxide 30 mmol/L (22-30); Chloride 104 mmol/L (98-107); Estimated CRCL calculation 25 ml/min; Estimated Glomerular Filt Rate 24; Glucose 111 mg/dL (65-110); Potassium 4.2 mmol/L (3.4-5.0); Sodium 139 mmol/L (137-145)
[2021-12-08 17:39] LABS: Glucose Point of Care 97 mg/dl (65-105)
[2021-12-08] MEDS: CHOLECALCIFEROL 1,000 UNITS TABLET 5000 UNITS PO (21:30)
[2021-12-08 21:45] LABS: Glucose Point of Care 96 mg/dl (65-105)
[2021-12-09] VITALS (17 sets, daily range): BP systolic 119–149; BP diastolic 40–72; PULSE 65–85; RESP 16–24; TEMP 36.2–37.4; O2SAT 94–100
[2021-12-09 05:49] LABS: Alanine Aminotransferase 10 U/L (4-50); Albumin Level 3.5 g/dL (3.5-5.1); Alkaline Phosphatase 74 U/L (38-126); Anion Gap 6 mmol/L (8-16); Aspartate Amino Transferase 19 U/L (17-59); Bilirubin,Total 0.6 mg/dL (0.2-1.3); Blood Urea Nitrogen 44 mg/dL (9-20); Calcium 9.3 mg/dL (8.4-10.2); Carbon Dioxide 31 mmol/L (22-30); Chloride 102 mmol/L (98-107); Estimated CRCL calculation 26 ml/min; Estimated Glomerular Filt Rate 25; Glucose 90 mg/dL (65-110); Phosphorus 3.6 mg/dL (2.5-4.5); Potassium 3.9 mmol/L (3.4-5.0); Sodium 139 mmol/L (137-145)
[2021-12-09] MEDS: LEVOTHYROXINE SODIUM 50 MCG TABLET PO (05:58)
[2021-12-09 08:48] LABS: Glucose Point of Care 84 mg/dl (65-105)
--- NOTE | 2021-12-09 09:32 | PM.IMPN ---
Progress Note: A&P Assessment and Plan (1) Acute exacerbation of congestive heart failure: Code(s): I50.9 - Heart failure, unspecified Status: Deleted Assessment and Plan: 2nd hospitalization for the same in the last 1 month. Patient admits he is not always mindful of his salt and oral intake. Continue IV diuresis with Lasix 80 mg b.i.d. Continue the Pt Amen at 2.5mcg/kg/min Compression stockings Elevation of the legs Accurate I&O daily weights Daily BMP while on inotrope and diuretic. Monitor I/ O and renal function while diuresing. Continue beta-teresa and Entresto. Cardiology is consulting. We appreciate their recommendations. (2) Elevated troponin: Code(s): R77.8 - Other specified abnormalities of plasma proteins Status: Acute Assessment and Plan: Patient has no chest pain likely these are elevated in the setting of congestive heart failure and renal disease. Trend troponins to peak. Consult cardiology as detailed above. Continue dual antiplatelet therapy, beta-teresa, and statin. (3) Chronic kidney disease, stage 4 (severe): Code(s): N18.4 - Chronic kidney disease, stage 4 (severe) Status: Acute Assessment and Plan: Creatinine is near baseline. Baseline creatinine in the 2-2.5 range. Mild fluctuation of creatinine, expected in the setting of congestive heart failure. This may be an element of cardiorenal syndrome. Kidney function is expected to improve as lower extremity edema and cardiac venous congestion get better. Monitor renal function daily while diuresing. (4) Chronic anemia: Code(s): D64.9 - Anemia, unspecified Status: Chronic Assessment and Plan: Hemoglobin and hematocrit are stable on review of previous labs. Obtain iron profile. (5) Essential hypertension: Code(s): I10 - Essential (primary) hypertension Status: Chronic Assessment and Plan: Blood pressures were reviewed and they are stable and within acceptable range. Systolic blood pressures have been in the 125/40 2-140 1/59 range. Continue cardioprotective medications and monitor blood pressures daily. (6) Hypothyroidism: Code(s): E03.9 - Hypothyroidism, unspecified Status: Acute Assessment and Plan: Continue levothyroxine. TSH was 3.8 (7) Insulin dependent type 2 diabetes mellitus: Code(s): E11.9 - Type 2 diabetes mellitus without complications; Z79.4 - assisted (current) use of insulin Status: Acute Assessment and Plan: Recent hemoglobin A1c was 6.4%. Fasting blood glucose was 100. Accu-Cheks in the 86-140 range. Continue basal insulin. Continue sliding scale insulin, Accu-Cheks, and hypoglycemic protocol. 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
[2021-12-09] MEDS: carvediloL 12.5 MG TABLET PO ×2 (09:44→21:06)
[2021-12-09] MEDS: ATORVASTATIN 40 MG TABLET 80 MG PO (09:44)
[2021-12-09] MEDS: FUROSEMIDE INJ 100 MG/10 ML VIAL 80 MG IV PUSH ×2 (09:45→16:47)
[2021-12-09] MEDS: ASPIRIN 81 MG ENTERIC TABLET PO (09:45)
[2021-12-09] MEDS: CLOPIDOGREL BISULFATE 75 MG TABLET PO (09:45)
[2021-12-09] MEDS: OPTI-GEN TAB 1 TABLET PO ×2 (09:45→21:06)
[2021-12-09] MEDS: ISOSORBIDE MONONITRATE 60 MG TAB.ER.24H PO (09:45)
[2021-12-09] MEDS: SACUBITRIL/VALSARTAN 49-51 MG TABLET 1 TABLET PO ×2 (09:45→21:05)
[2021-12-09] MEDS: INSULIN GLARGINE (*BKC) 100 UNITS/ML SUB-Q (09:50)
--- NOTE | 2021-12-09 11:47 | P.PNNP_ITS ---
Progress Note: A&P Assessment and Plan (1) Chronic kidney disease, stage IV (severe): Code(s): N18.4 - Chronic kidney disease, stage 4 (severe) Status: Deleted Assessment and Plan: * baseline creatinine runs ~ 2.0 - 2.5mg/dl * due to a combination of HTN, DM, vascular disease, age and an element of cardiorenal syndrome(CHF) based on outpatient evaluation * his creatinine is about the same today. * He is on Lasix 80 b.i.d. for his volume overload * He is eating well. (2) Acute on chronic systolic (congestive) heart failure: Code(s): I50.23 - Acute on chronic systolic (congestive) heart failure Status: Acute Assessment and Plan: * Cardiology recommendations noted * IV dobutamine + IV diuretics * Making urine. * Continue current therapy. (3) Essential hypertension: Code(s): I10 - Essential (primary) hypertension Status: Chronic Assessment and Plan: * Systolic 120-140 for the most part. * He is on carvedilol and Entresto for his heart and this has been keeping his blood pressure in check as well. (4) Chronic anemia: Code(s): D64.9 - Anemia, unspecified Status: Chronic Assessment and Plan: * likely partly due to CKD * no need for ESAs at this time * Check CBC in the morning (5) Diabetes: Code(s): E11.9 - Type 2 diabetes mellitus without complications Status: Deleted Assessment and Plan: * On Accu-Cheks and sliding-scale insulin Will continue to follow. Subjective Date/time seen: 12/09/21 11:47 Interval history: Patient is sitting in a chair. He feels a lot better. He is on a dobutamine drip. Making lots of urine. Exam Narrative: WDWN gentleman in NAD skin no rash head ncat lungs decreased breath sounds at the bases. cor reg no rub abd BS+ nontender and soft ext trace edema. Objective Data Vital Signs Vital Signs: Vital Signs - 24 hr 12/08/21 12:00 12/08/21 14:00 12/08/21 16:00 Temperature 36.1 C L 36.8 C Pulse Rate 59 L 64 87 Respiratory Rate 18 18 Blood Pressure 99/70 L 133/75 Pulse Oximetry 98 94 12/08/21 18:00 12/08/21 20:00 12/08/21 21:29 Temperature 36.1 C L Pulse Rate 79 82 81 Respiratory Rate 22 H Blood Pressure 138/47 L Pulse Oximetry 100 12/08/21 22:00 12/09/21 00:00 12/09/21 02:00 Temperature 36.6 C Pulse Rate 78 74 72 Respiratory Rate 24 H Blood Pressure 122/72 Pulse Oximetry 94 12/09/21 04:00 12/09/21 06:00 12/09/21 08:00 Temperature 37.4 C 36.3 C L Pulse Rate 73 72 77 Respiratory Rate 20 16 Blood Pressure 119/54 L 131/41 L Pulse Oximetry 100 96 12/09/21 09:44 Temperature Pulse Rate 76 Respiratory Rate Blood Pressure Pulse Oximetry Intake/Output Intake/Output: Intake & Output 12/06/21 12/07/21 12/08/21 12/09/21 23:59 23:59 23:59 23:59 Intake Total 273 531 1913 1040 Output Total 542 9679 3561 Balance 240 442 -1763 -403 Meds/Results Medications: Active Medications Generic Name Dose Route Start L
--- NOTE | 2021-12-09 11:47 | PM.PNNEP ---
Progress Note: A&P Assessment and Plan (1) Chronic kidney disease, stage IV (severe): Code(s): N18.4 - Chronic kidney disease, stage 4 (severe) Status: Deleted Assessment and Plan: baseline creatinine runs ~ 2.0 - 2.5mg/dl due to a combination of HTN, DM, vascular disease, age and an element of cardiorenal syndrome(CHF) based on outpatient evaluation his creatinine is about the same today. He is on Lasix 80 b.i.d. for his volume overload He is eating well. (2) Acute on chronic systolic (congestive) heart failure: Code(s): I50.23 - Acute on chronic systolic (congestive) heart failure Status: Acute Assessment and Plan: Cardiology recommendations noted IV dobutamine + IV diuretics Making urine. Continue current therapy. (3) Essential hypertension: Code(s): I10 - Essential (primary) hypertension Status: Chronic Assessment and Plan: Systolic 120-140 for the most part. He is on carvedilol and Entresto for his heart and this has been keeping his blood pressure in check as well. (4) Chronic anemia: Code(s): D64.9 - Anemia, unspecified Status: Chronic Assessment and Plan: likely partly due to CKD no need for ESAs at this time Check CBC in the morning (5) Diabetes: Code(s): E11.9 - Type 2 diabetes mellitus without complications Status: Deleted Assessment and Plan: On Accu-Cheks and sliding-scale insulin Will continue to follow. Subjective Date/time seen: 12/09/21 11:47 Interval history: Patient is sitting in a chair. He feels a lot better. He is on a dobutamine drip. Making lots of urine. Exam Narrative: WDWN gentleman in NAD skin no rash head ncat lungs decreased breath sounds at the bases. cor reg no rub abd BS+ nontender and soft ext trace edema. Objective Data Vital Signs Vital Signs: Vital Signs - 24 hr 12/08/21 12:00 12/08/21 14:00 12/08/21 16:00 Temperature 36.1 C L 36.8 C Pulse Rate 59 L 64 87 Respiratory Rate 18 18 Blood Pressure 99/70 L 133/75 Pulse Oximetry 98 94 12/08/21 18:00 12/08/21 20:00 12/08/21 21:29 Temperature 36.1 C L Pulse Rate 79 82 81 Respiratory Rate 22 H Blood Pressure 138/47 L Pulse Oximetry 100 12/08/21 22:00 12/09/21 00:00 12/09/21 02:00 Temperature 36.6 C Pulse Rate 78 74 72 Respiratory Rate 24 H Blood Pressure 122/72 Pulse Oximetry 94 12/09/21 04:00 12/09/21 06:00 12/09/21 08:00 Temperature 37.4 C 36.3 C L Pulse Rate 73 72 77 Respiratory Rate 20 16 Blood Pressure 119/54 L 131/41 L Pulse Oximetry 100 96 12/09/21 09:44 Temperature Pulse Rate 76 Respiratory Rate Blood Pressure Pulse Oximetry Intake/Output Intake/Output: Intake & Output 12/06/21 12/07/21 12/08/21 12/09/21 23:59 23:59 23:59 23:59 Intake Total 375 777 0827 1040 Output Total 750 2925 1725 Balance 240 607 -6376 -164 Meds/Results Medications: Active Medications Generic Name Dose Route Start Last Admin Trade Name [facility] PRN Reason Stop Dose Admin Aspirin 81 mg 12/07/21 09:00 12/09/21 09:45 Aspirin 81 Mg Enteric Tablet PO 81 mg DAILY JEFF Administration Atorvastatin Calcium 80 mg 12/07/21 09:00 12/09/21 09:44 Atorvastatin 40 Mg Tablet PO 80 mg DAILY JEFF Administration Carvedilol 12.5 mg 12/07/21 00:00 12/09/21 09:44 Carvedilol 12.5 Mg Tablet PO 12.5 mg Q12HR JEFF Administration Clopidogrel Bisulfate 75 mg 12/07/21 09:00 12/09/21 09:45 Clopidogrel Bisulfate 75 Mg Tablet PO 75 mg DAILY JEFF Administration Dextrose 12.5 gm 12/06/21 15:04 Dextrose 50% 25 Gm/50 Ml Syringe IV PUSH PRN PRN Hypoglycemia Protocol Furosemide 80 mg 12/07/21 11:10 12/09/21 09:45 Furosemide Inj 100 Mg/10 Ml Vial IV PUSH 80 mg BID JEFF Administration Glucagon 1 mg 12/06/21 15:04 Glucagon For Inj 1 Mg Vial IM PRN PRN Hypoglycemia Protocol Glucose
--- NOTE | 2021-12-09 12:32 | PM.PNCARD ---
Progress Note: A&P Additional Plan 76-year-old man with: Congestive heart failure well known/well evaluated history of ischemic cardiomyopathy. He admitted with a state of volume overload and worsening renal insufficiency probably because of reduced cardiac output. He has responded very well to low-dose dobutamine infusion is making a lot of urine and mobilizing a lot of fluid at this time. He will be kept in the hospital as long as he is benefiting from this until he she has a state of euvolemia or starts to become more azotemic. For the time being he is doing well and we will continue this regimen. Patient is very understanding and will follow recommendations and remain in the hospital until he is optimized. Yehuda Richmond MD [facility] Subjective Date/time seen: Date of service: 12/09/21 12:32 Interval history: Follow-up visit in this 76-year-old man with: Longstanding coronary artery disease is detailed in my consult note with ischemic cardiomyopathy. Patient presented with volume overload/decompensated heart failure. He is benefiting greatly from he intravenous dobutamine infusion and mobilizing a large amount of fluid. Feels much better than admission. Exam Const: General: comfortable and no acute distress Orientation/consciousness: patient oriented x3 Other: Pleasant elderly man long ramirez sitting in the chair watching television in good spirits HENMT: Mouth: Yes moist mucous membranes Eyes: Sclera: sclerae normal Pupils: Equal, round and reactive pupils present Neck: Neck: supple Other: About 3 cm of JVD are noted Resp: Effort & Inspection: normal respiratory effort Other: Breath sounds dull at the bases bilaterally no wheezing no rhonchi Cardio: Jugular venous distension: JVD Rate: regular rate Rhythm: regular rhythm Other: PMI is laterally displaced and enlarged. Very soft systolic murmur does not radiate from the base no gallop GI: Auscultation: normal bowel sounds Skin: General skin exam: normal color Neuro: General: patient oriented x3 Cranial nerves: Yes Equal, round and reactive pupils present Cognition (Neuro): normal cognition Extrem: General: abnormal to inspection, edema and pedal edema Other: Psych: Appearance: grossly normal Mental Status: mental status grossly normal Objective Data Vital Signs Vital Signs: Vital Signs - 24 hr 12/08/21 14:00 12/08/21 16:00 12/08/21 18:00 Temperature 36.8 C Pulse Rate 64 87 79 Respiratory Rate 18 Blood Pressure 133/75 Pulse Oximetry 94 12/08/21 20:00 12/08/21 21:29 12/08/21 22:00 Temperature 36.1 C L Pulse Rate 82 81 78 Respiratory Rate 22 H Blood Pressure 138/47 L Pulse Oximetry 100 12/09/21 00:00 12/09/21 02:00 12/09/21 04:00 Temperature 36.6 C 37.4 C Pulse Rate 74 72 73 Respiratory Rate 24 H 20 Blood Pressure 122/72 119/54 L Pulse Oximetry 94 100 12/09/21 06:00 12/09/21 08:00 12/09/21 09:44 Temperature 36.3 C L Pulse Rate 72 77 76 Respiratory Rate 16 Blood Pressure 131/41 L Pulse Oximetry 96 12/09/21 12:00 Temperature 36.4 C Pulse Rate 73 Respiratory Rate 22 H Blood Pressure 142/40 H Pulse Oximetry 98 Intake/Output Intake/Output: Intake & Output 12/06/21 12/07/21 12/08/21 12/09/21 23:59 23:59 23:59 23:59 Intake Total 328 769 9413 1040 Output Total 750 2925 1725 Balance 240 740 -2220 -966 Meds/Results Medications: Active Medications Generic Name Dose Route Start Last Admin Trade Name Hilton PRN Reason Stop Dose Admin Aspirin 81 mg 12/07/21 09:00 12/09/21 09:45 Aspirin 81 Mg Enteric Tablet PO 81 mg DAILY JEFF Administration Atorvastatin Calcium 80 mg 12/07/21 09:00 12/09/21 09:44 Atorvastatin 40 Mg Tablet PO 80 mg DAILY JEFF Administration Carvedilol 12.5 mg 12/07/21 00:00 12/09/21 09:44 Carvedilol 12.5 Mg Tablet PO 12.5 mg Q12HR JEFF Administration Clopidogrel Bisulfate 75 mg 12/07/21 09:00 12/09/21 09:45 Clopidogrel Bis
[2021-12-09 12:55] LABS: Glucose Point of Care 96 mg/dl (65-105)
[2021-12-09] MEDS: DOBUTamine 250 MG/D5W 250 ML 250 MG/250 ML BAG 15.09 MG IV CONT (13:52)
[2021-12-09 18:24] LABS: Glucose Point of Care 154 mg/dl (65-105)
[2021-12-09 20:54] LABS: Glucose Point of Care 160 mg/dl (65-105)
[2021-12-09] MEDS: CHOLECALCIFEROL 1,000 UNITS TABLET 5000 UNITS PO (21:07)
[2021-12-10] VITALS (17 sets, daily range): BP systolic 94–139; BP diastolic 39–66; PULSE 58–84; RESP 16–20; TEMP 36.6–37.3; O2SAT 98–100
[2021-12-10] MEDS: DOBUTamine 250 MG/D5W 250 ML 250 MG/250 ML BAG 15.09 MG IV CONT ×2 (06:16→21:43)
[2021-12-10] MEDS: LEVOTHYROXINE SODIUM 50 MCG TABLET PO (06:16)
[2021-12-10] MEDS: ASPIRIN 81 MG ENTERIC TABLET PO (08:31)
[2021-12-10] MEDS: ATORVASTATIN 40 MG TABLET 80 MG PO (08:31)
[2021-12-10] MEDS: FUROSEMIDE INJ 100 MG/10 ML VIAL 80 MG IV PUSH ×2 (08:32→17:42)
[2021-12-10] MEDS: CLOPIDOGREL BISULFATE 75 MG TABLET PO (08:32)
[2021-12-10] MEDS: OPTI-GEN TAB 1 TABLET PO ×2 (08:34→21:31)
[2021-12-10] MEDS: SACUBITRIL/VALSARTAN 49-51 MG TABLET 1 TABLET PO ×2 (08:35→21:31)
[2021-12-10 08:40] LABS: Glucose Point of Care 101 mg/dl (65-105)
[2021-12-10] MEDS: INSULIN GLARGINE (*BKC) 100 UNITS/ML SUB-Q (08:42)
--- NOTE | 2021-12-10 09:35 | PM.PNNEP ---
Progress Note: A&P Assessment and Plan (1) Chronic kidney disease, stage IV (severe): Code(s): N18.4 - Chronic kidney disease, stage 4 (severe) Status: Deleted Assessment and Plan: baseline creatinine runs ~ 2.0 - 2.5mg/dl due to a combination of HTN, DM, vascular disease, age and an element of cardiorenal syndrome(CHF) based on outpatient evaluation Labs pending. He is on Lasix 80 b.i.d. for his volume overload He is eating well. Continue the diuretics and the dobutamine. (2) Acute on chronic systolic (congestive) heart failure: Code(s): I50.23 - Acute on chronic systolic (congestive) heart failure Status: Acute Assessment and Plan: Cardiology recommendations noted IV dobutamine + IV diuretics Making urine. Continue current therapy. (3) Essential hypertension: Code(s): I10 - Essential (primary) hypertension Status: Chronic Assessment and Plan: Systolic 120-140 for the most part. He is on carvedilol and Entresto for his heart and this has been keeping his blood pressure in check as well. (4) Chronic anemia: Code(s): D64.9 - Anemia, unspecified Status: Chronic Assessment and Plan: likely partly due to CKD no need for ESAs at this time Check CBC tomorrow (5) Diabetes: Code(s): E11.9 - Type 2 diabetes mellitus without complications Status: Deleted Assessment and Plan: On Accu-Cheks and sliding-scale insulin Will continue to follow. Subjective Date/time seen: 12/10/21 09:35 Interval history: Patient is sitting at the side of the bed. He feels a lot better. He continues on the dobutamine drip. Exam Narrative: WDWN gentleman in NAD skin no rash head ncat lungs decreased breath sounds at the bases. cor reg no rub abd BS+ nontender and soft ext trace edema. Objective Data Vital Signs Vital Signs: Vital Signs - 24 hr 12/09/21 09:44 12/09/21 10:00 12/09/21 12:00 Temperature 36.4 C Pulse Rate 76 65 73 Respiratory Rate 22 H Blood Pressure 142/40 H Pulse Oximetry 96 12/09/21 13:52 12/09/21 14:00 12/09/21 16:00 Temperature 36.4 C Pulse Rate 74 69 69 Respiratory Rate 20 Blood Pressure 137/49 L Pulse Oximetry 99 12/09/21 18:00 12/09/21 20:00 12/09/21 20:34 Temperature 36.6 C Pulse Rate 82 72 Respiratory Rate 18 Blood Pressure 126/46 L Pulse Oximetry 99 99 12/09/21 21:06 12/09/21 22:00 12/09/21 23:44 Temperature 36.2 C L Pulse Rate 72 79 85 Respiratory Rate 18 Blood Pressure 149/71 H Pulse Oximetry 98 12/10/21 00:00 12/10/21 02:00 12/10/21 04:00 Temperature 37.3 C Pulse Rate 83 80 82 Respiratory Rate 18 16 Blood Pressure 134/39 L Pulse Oximetry 98 99 12/10/21 06:00 12/10/21 06:16 12/10/21 08:00 Temperature 37.0 C Pulse Rate 79 82 78 Respiratory Rate 18 Blood Pressure 94/50 L Pulse Oximetry 98 Intake/Output Intake/Output: Intake & Output 12/07/21 12/08/21 12/09/21 12/10/21 23:59 23:59 23:59 23:59 Intake Total 920 1595 1770 650 Output Total 750 5004 6810 1300 Balance 144 -2284 -705 -650 Meds/Results Medications: Active Medications Generic Name Dose Route Start Last Admin Trade Name Arunq PRN Reason Stop Dose Admin Aspirin 81 mg 12/07/21 09:00 12/10/21 08:31 Aspirin 81 Mg Enteric Tablet PO 81 mg DAILY JEFF Administration Atorvastatin Calcium 80 mg 12/07/21 09:00 12/10/21 08:31 Atorvastatin 40 Mg Tablet PO 80 mg DAILY JEFF Administration Carvedilol 12.5 mg 12/07/21 00:00 12/09/21 21:06 Carvedilol 12.5 Mg Tablet PO 12.5 mg Q12HR JEFF Administration Clopidogrel Bisulfate 75 mg 12/07/21 09:00 12/10/21 08:32 Clopidogrel Bisulfate 75 Mg Tablet PO 75 mg DAILY JEFF Administration Dextrose 12.5 gm 12/06/21 15:04 Dextrose 50% 25 Gm/50 Ml Syringe IV PUSH PRN PRN Hypoglycemia Protocol Furosemide 80 mg 12/07/21 11:10 12/10/21 08:3
--- NOTE | 2021-12-10 09:43 | PM.IMPN ---
Progress Note: A&P Assessment and Plan (1) Elevated troponin: Code(s): R77.8 - Other specified abnormalities of plasma proteins Status: Acute Assessment and Plan: Patient has no chest pain likely these are elevated in the setting of congestive heart failure and renal disease. Trend troponins to peak. Consult cardiology as detailed above. Continue dual antiplatelet therapy, beta-teresa, and statin. (2) Chronic kidney disease, stage 4 (severe): Code(s): N18.4 - Chronic kidney disease, stage 4 (severe) Status: Acute Assessment and Plan: Creatinine is near baseline. Baseline creatinine in the 2-2.5 range. Mild fluctuation of creatinine, expected in the setting of congestive heart failure. This may be an element of cardiorenal syndrome. Kidney function is expected to improve as lower extremity edema and cardiac venous congestion get better. Monitor renal function daily while diuresing. (3) Chronic anemia: Code(s): D64.9 - Anemia, unspecified Status: Chronic Assessment and Plan: Hemoglobin and hematocrit are stable on review of previous labs. Obtain iron profile. (4) Essential hypertension: Code(s): I10 - Essential (primary) hypertension Status: Chronic Assessment and Plan: Blood pressures were reviewed and they are stable and within acceptable range. Systolic blood pressures have been in the 125/40 2-140 1/59 range. Continue cardioprotective medications and monitor blood pressures daily. (5) Hypothyroidism: Code(s): E03.9 - Hypothyroidism, unspecified Status: Acute Assessment and Plan: Continue levothyroxine. TSH was 3.8 (6) Insulin dependent type 2 diabetes mellitus: Code(s): E11.9 - Type 2 diabetes mellitus without complications; Z79.4 - nursing home (current) use of insulin Status: Acute Assessment and Plan: Recent hemoglobin A1c was 6.4%. Fasting blood glucose was 100. Accu-Cheks in the 86-140 range. Continue basal insulin. Continue sliding scale insulin, Accu-Cheks, and hypoglycemic protocol. 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: Code(s): I25.810 - Atherosclerosis of coronary artery bypass graft(s) without angina pectoris Status: Acute (9) Ischemic cardiomyopathy: Code(s): I25.5 - Ischemic cardiomyopathy Status: Acute (10) Acute on chronic systolic (congestive) heart failure: Code(s): I50.23 - Acute on chronic systolic (congestive) heart failure Status: Acute (11) Type 2 DM with CKD stage 4 and hypertension: Code(s): E11.22 - Type 2 diabetes mellitus with diabetic chronic kidney disease; I12.9 - Hypertensive chronic kidney disease with stage 1 through stage 4 chronic kidney disease, or unspecified chronic kidney disease; N18.4 - Chronic kidney disease, stage 4 (severe) Status: Acute Additional Plan 12/09/21 pt doing ok remains on Dobutamine gtt extensive vascular disease volume status improving w lasix 80mg BID cont current care cardio and renal following 12/10/21 remains on Dobutamine gtt doing well without complaints today total output appears low defer to cardiology's management BG at goal renal function stable cont current care Subjective Date/time seen: 12/10/21 09:43 pt doing ok no complaints reports low bp taken from arm that is always low
[2021-12-10] MEDS: carvediloL 12.5 MG TABLET PO ×2 (10:05→21:31)
[2021-12-10] MEDS: ISOSORBIDE MONONITRATE 60 MG TAB.ER.24H PO (10:05)
[2021-12-10 10:13] LABS: Anion Gap 3 mmol/L (8-16); Blood Urea Nitrogen 45 mg/dL (9-20); Calcium 9.4 mg/dL (8.4-10.2); Carbon Dioxide 35 mmol/L (22-30); Chloride 99 mmol/L (98-107); Estimated CRCL calculation 21 ml/min; Estimated Glomerular Filt Rate 24; Glucose 142 mg/dL (65-110); Potassium 4.3 mmol/L (3.4-5.0); Sodium 137 mmol/L (137-145)
[2021-12-10 13:21] LABS: Glucose Point of Care 104 mg/dl (65-105)
--- NOTE | 2021-12-10 13:21 | PM.PNCARD ---
Progress Note: A&P Assessment and Plan (1) Acute on chronic systolic (congestive) heart failure: Code(s): I50.23 - Acute on chronic systolic (congestive) heart failure Status: Acute Assessment and Plan: Presented with shortness of breath and significant LE edema. This is his second hospitalization this month for acute CHF. He has been placed on a dobutamine drip to augment diuresis and his IV furosemide was advanced to 80mg b.i.d. He has made good urine in the past 24 hours and has had some improvement in swelling and is no longer short of breath. Continue Dobutamine at 2.5mcg/kg/min reassess tomorrow morning appropriateness for discontinuation. Continue furosemide 80mg IV b.i.d. provided renal function tolerates may increase if urine output declining Compression stockings Accurate I&O daily weights Daily BMP while on inotrope and diuretic. monitor electrolytes closely, stable thus far. Heart rate and BP generally stable. (2) Ischemic cardiomyopathy: Code(s): I25.5 - Ischemic cardiomyopathy Status: Acute Assessment and Plan: Significant coronary artery disease resulting in ischemic cardiomyopathy with an EF of 30-35%. He is on medical therapy with Entresto and coreg. 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 LHC ~2 years ago at [facility] did not reveal any opportunities for revascularization as he had no patent [place] coronary arteries. (4) CKD (chronic kidney disease): Qualifiers: Chronic kidney disease stage: unspecified stage Qualified Code(s): N18.9 - Chronic kidney disease, unspecified Code(s): N18.9 - Chronic kidney disease, unspecified Status: Deleted Assessment and Plan: Stage 3 CKD with baseline creatinine 2.0 - 2.5 currently stable on 2.6. Nephrology is following along, appreciate their input and recommendations. Subjective Date/time seen: Date of service:12/10/21 13:21 Interval history: Follow-up visit in this 76-year-old man with: Longstanding coronary artery disease is detailed in my consult note with ischemic cardiomyopathy. Patient presented with volume overload/decompensated heart failure. Feel little better still with lower extremity edema. Denies shortness of breath or chest pain. Eating well. Urine output fair. Tolerating medical therapy remains on dobutamine. No issues overnight. No significant sustained tachyarrhythmias. Review of Systems Review of Systems: All systems reviewed & are unremarkable except as noted in HPI and below Constitutional: Constitutional: Reports as per HPI and Reports no additional constitutional complaints Eyes: Eyes: Reports as per HPI and Reports no additional eye complaints ENT: Reports system reviewed and no additional complaints, except as documented and Reports as per HPI Cardiovascular: Cardiovascular: Reports as per HPI and Reports no additional cardiovascular complaints Respiratory: Respiratory: Reports as per HPI and Reports no additional respiratory complaints Gastrointestinal: Gastrointestinal: Reports as per HPI and Reports no additional gastrointestinal complaints Genitourinary: Genitourinary: Reports no additional male genitourinary complaints and Reports as per HPI Musculoskeletal: Musculoskeletal: Reports no additional musculoskeletal complaints and Reports as per HPI Integumentary/Breasts: Skin/Breast: Reports system reviewed and no additional complaints, except as docu and Reports as per HPI Neurologic: Reports system reviewed and no additional complaints, except as documented and Reports as per HPI Psychiatric: Psychiatric: Reports no additional psychiatric com
[2021-12-10 18:11] LABS: Glucose Point of Care 124 mg/dl (65-105)
[2021-12-10 21:16] LABS: Glucose Point of Care 199 mg/dl (65-105)
[2021-12-10] MEDS: CHOLECALCIFEROL 1,000 UNITS TABLET 5000 UNITS PO (21:30)
[2021-12-11] VITALS (19 sets, daily range): BP systolic 97–132; BP diastolic 43–68; PULSE 61–108; RESP 16–18; TEMP 36.3–36.9; O2SAT 92–100
[2021-12-11] MEDS: LEVOTHYROXINE SODIUM 50 MCG TABLET PO (05:03)
[2021-12-11 05:24] LABS: Hematocrit 33.6 % (42.0-52.0); Mean Corpuscular HGB Conc 29.8 g/dl (32-36); Mean Corpuscular Hemoglobin 28.7 pg (26-34); Mean Corpuscular Volume 96.3 fl (80-100); Mean Platelet Volume 12.3 fl (7.4-10.4); Platelet Count Result 143 k/mm3 (150-375); Red Blood Count 3.49 M/mm3 (4.6-6.20); White Blood Count 5.4 K/mm3 (4.5-10.0)
[2021-12-11 05:46] LABS: Albumin Level 3.7 g/dL (3.5-5.1); Anion Gap 3 mmol/L (8-16); Blood Urea Nitrogen 49 mg/dL (9-20); Calcium 9.7 mg/dL (8.4-10.2); Carbon Dioxide 36 mmol/L (22-30); Chloride 99 mmol/L (98-107); Estimated CRCL calculation 21 ml/min; Estimated Glomerular Filt Rate 24; Glucose 97 mg/dL (65-110); Phosphorus 3.5 mg/dL (2.5-4.5); Potassium 4.4 mmol/L (3.4-5.0); Sodium 138 mmol/L (137-145)
[2021-12-11 08:25] LABS: Glucose Point of Care 94 mg/dl (65-105)
[2021-12-11] MEDS: ATORVASTATIN 40 MG TABLET 80 MG PO (09:09)
[2021-12-11] MEDS: ISOSORBIDE MONONITRATE 60 MG TAB.ER.24H PO (09:10)
[2021-12-11] MEDS: OPTI-GEN TAB 1 TABLET PO ×2 (09:10→20:50)
[2021-12-11] MEDS: SACUBITRIL/VALSARTAN 49-51 MG TABLET 1 TABLET PO ×2 (09:10→20:50)
[2021-12-11] MEDS: carvediloL 12.5 MG TABLET PO ×2 (09:10→20:50)
[2021-12-11] MEDS: CLOPIDOGREL BISULFATE 75 MG TABLET PO (09:11)
[2021-12-11] MEDS: FUROSEMIDE INJ 100 MG/10 ML VIAL 80 MG IV PUSH ×2 (09:11→17:44)
[2021-12-11] MEDS: ASPIRIN 81 MG ENTERIC TABLET PO (09:11)
[2021-12-11] MEDS: INSULIN GLARGINE (*BKC) 100 UNITS/ML SUB-Q (09:13)
--- NOTE | 2021-12-11 10:15 | P.PNNP_ITS ---
Progress Note: A&P Assessment and Plan (1) Chronic kidney disease, stage IV (severe): Code(s): N18.4 - Chronic kidney disease, stage 4 (severe) Status: Deleted Assessment and Plan: * baseline creatinine runs ~ 2.0 - 2.5mg/dl * due to a combination of HTN, DM, vascular disease, age and an element of cardiorenal syndrome(CHF) based on outpatient evaluation * Labs shows stable creatinine above his baseline. * He is on Lasix 80 b.i.d. for his volume overload and Dobutamine to treat the volume overload. * He is eating well. * Continue The Lasix and dobutamine. Will add metolazone for couple of (2) Acute on chronic systolic (congestive) heart failure: Code(s): I50.23 - Acute on chronic systolic (congestive) heart failure Status: Acute Assessment and Plan: * Cardiology recommendations noted * IV dobutamine + IV diuretics * Making urine. * lung sound better but still has substantial amounts of swelling * Continue current therapy. (3) Essential hypertension: Code(s): I10 - Essential (primary) hypertension Status: Chronic Assessment and Plan: * Systolic 100-140 for the most part. * He is on carvedilol and Entresto for his heart and this has been keeping his blood pressure in check as well. (4) Chronic anemia: Code(s): D64.9 - Anemia, unspecified Status: Chronic Assessment and Plan: * likely partly due to CKD * no need for ESAs at this time * Check CBC tomorrow (5) Diabetes: Code(s): E11.9 - Type 2 diabetes mellitus without complications Status: Deleted Assessment and Plan: * On Accu-Cheks and sliding-scale insulin Will continue to follow. Subjective Date/time seen: 12/11/21 10:15 Interval history: Patient is sitting at the side of the bed. He feels a lot better. He continues on the dobutamine drip. Exam Narrative: WDWN gentleman in NAD skin no rash head ncat lungs decreased breath sounds at the bases. cor reg no rub or gallop abd BS+ nontender and soft ext trace edema or cyanosis. Objective Data Vital Signs Vital Signs: Vital Signs - 24 hr 12/10/21 12:00 12/10/21 16:00 12/10/21 18:00 Temperature 36.8 C 37.0 C Pulse Rate 58 L 73 84 Respiratory Rate 20 18 Blood Pressure 112/56 L 139/43 L Pulse Oximetry 99 99 12/10/21 19:58 12/10/21 20:00 12/10/21 21:31 Temperature 36.6 C Pulse Rate 75 75 76 Respiratory Rate 16 16 Blood Pressure 124/66 Pulse Oximetry 100 100 12/10/21 21:43 12/10/21 22:00 12/10/21 23:49 Temperature Pulse Rate 76 81 Respiratory Rate Blood Pressure Pulse Oximetry 99 12/11/21 00:00 12/11/21 02:00 12/11/21 03:44 Temperature 36.4 C L 36.9 C Pulse Rate 78 65 61 Respiratory Rate 18 16 Blood Pressure 116/43 L 116/53 L Pulse Oximetry 92 97 12/11/21 04:00 12/11/21 06:00 12/11/21 07:39 Temperature 36.3 C L Pulse Rate 73 78 108 H Respiratory Rate 16 18 Blood Pressure 103/68 Pulse Oximetry 97 98 12/11/21 09:10 Temperature Pulse Rate 77 Respiratory Rate Blood Pressure Pulse Ox
--- NOTE | 2021-12-11 10:15 | PM.PNNEP ---
Progress Note: A&P Assessment and Plan (1) Chronic kidney disease, stage IV (severe): Code(s): N18.4 - Chronic kidney disease, stage 4 (severe) Status: Deleted Assessment and Plan: baseline creatinine runs ~ 2.0 - 2.5mg/dl due to a combination of HTN, DM, vascular disease, age and an element of cardiorenal syndrome(CHF) based on outpatient evaluation Labs shows stable creatinine above his baseline. He is on Lasix 80 b.i.d. for his volume overload and Dobutamine to treat the volume overload. He is eating well. Continue The Lasix and dobutamine. Will add metolazone for couple of (2) Acute on chronic systolic (congestive) heart failure: Code(s): I50.23 - Acute on chronic systolic (congestive) heart failure Status: Acute Assessment and Plan: Cardiology recommendations noted IV dobutamine + IV diuretics Making urine. lung sound better but still has substantial amounts of swelling Continue current therapy. (3) Essential hypertension: Code(s): I10 - Essential (primary) hypertension Status: Chronic Assessment and Plan: Systolic 100-140 for the most part. He is on carvedilol and Entresto for his heart and this has been keeping his blood pressure in check as well. (4) Chronic anemia: Code(s): D64.9 - Anemia, unspecified Status: Chronic Assessment and Plan: likely partly due to CKD no need for ESAs at this time Check CBC tomorrow (5) Diabetes: Code(s): E11.9 - Type 2 diabetes mellitus without complications Status: Deleted Assessment and Plan: On Accu-Cheks and sliding-scale insulin Will continue to follow. Subjective Date/time seen: 12/11/21 10:15 Interval history: Patient is sitting at the side of the bed. He feels a lot better. He continues on the dobutamine drip. Exam Narrative: WDWN gentleman in NAD skin no rash head ncat lungs decreased breath sounds at the bases. cor reg no rub or gallop abd BS+ nontender and soft ext trace edema or cyanosis. Objective Data Vital Signs Vital Signs: Vital Signs - 24 hr 12/10/21 12:00 12/10/21 16:00 12/10/21 18:00 Temperature 36.8 C 37.0 C Pulse Rate 58 L 73 84 Respiratory Rate 20 18 Blood Pressure 112/56 L 139/43 L Pulse Oximetry 99 99 12/10/21 19:58 12/10/21 20:00 12/10/21 21:31 Temperature 36.6 C Pulse Rate 75 75 76 Respiratory Rate 16 16 Blood Pressure 124/66 Pulse Oximetry 100 100 12/10/21 21:43 12/10/21 22:00 12/10/21 23:49 Temperature Pulse Rate 76 81 Respiratory Rate Blood Pressure Pulse Oximetry 99 12/11/21 00:00 12/11/21 02:00 12/11/21 03:44 Temperature 36.4 C L 36.9 C Pulse Rate 78 65 61 Respiratory Rate 18 16 Blood Pressure 116/43 L 116/53 L Pulse Oximetry 92 97 12/11/21 04:00 12/11/21 06:00 12/11/21 07:39 Temperature 36.3 C L Pulse Rate 73 78 108 H Respiratory Rate 16 18 Blood Pressure 103/68 Pulse Oximetry 97 98 12/11/21 09:10 Temperature Pulse Rate 77 Respiratory Rate Blood Pressure Pulse Oximetry Intake/Output Intake/Output: Intake & Output 12/08/21 12/09/21 12/10/21 12/11/21 23:59 23:59 23:59 23:59 Intake Total 1595 1770 1860 300 Output Total 2958 1091 1415 950 [facility] -1330 -705 -190 -650 Meds/Results Medications: Active Medications Generic Name Dose Route Start Last Admin Trade Name Freq PRN Reason Stop Dose Admin Aspirin 81 mg 12/07/21 09:00 12/11/21 09:11 Aspirin 81 Mg Enteric Tablet PO 81 mg DAILY JEFF Administration Atorvastatin Calcium 80 mg 12/07/21 09:00 12/11/21 09:09 Atorvastatin 40 Mg Tablet PO 80 mg DAILY JEFF Administration Carvedilol 12.5 mg 12/07/21 00:00 12/11/21 09:10 Carvedilol 12.5 Mg Tablet PO 12.5 mg Q12HR JEFF Administration Clopidogrel Bisulfate 75 mg 12/07/21 09:00 12/11/21 09:11 Clopidogrel Bisulfate 75 Mg Tablet PO 75 mg DAILY JEFF Administration Dextrose 12.5
--- NOTE | 2021-12-11 12:02 | PM.PNCARD ---
Progress Note: A&P Assessment and Plan (1) Acute on chronic systolic (congestive) heart failure: Code(s): I50.23 - Acute on chronic systolic (congestive) heart failure Status: Acute Assessment and Plan: Presented with shortness of breath and significant LE edema. This is his second hospitalization this month for acute CHF. He has been placed on a dobutamine drip to augment diuresis and his IV furosemide was advanced to 80mg b.i.d. -urine output slowing on current regimen unfortunately. Continue Dobutamine at 2.5mcg/kg/min. Patient remains volume overloaded and decompensated. Continue furosemide 80mg IV b.i.d. agree with adding metolazone 5 mg daily per Nephrology as urine output marginal. Compression stockings. I have not seen him wear them and his legs have been in a dependent position each time I have seen him Accurate I&O daily weights Daily BMP while on inotrope and diuretic. monitor electrolytes closely, stable thus far. Heart rate and BP generally stable. (2) Ischemic cardiomyopathy: Code(s): I25.5 - Ischemic cardiomyopathy Status: Acute Assessment and Plan: Significant coronary artery disease resulting in ischemic cardiomyopathy with an EF of 30-35%. He is on medical therapy with Entresto and coreg. 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 LHC ~2 years ago at [facility] did not reveal any opportunities for revascularization as he had no patent tetlin coronary arteries. (4) CKD (chronic kidney disease): Qualifiers: Chronic kidney disease stage: unspecified stage Qualified Code(s): N18.9 - Chronic kidney disease, unspecified Code(s): N18.9 - Chronic kidney disease, unspecified Status: Deleted Assessment and Plan: Stage 3 CKD with baseline creatinine 2.0 - 2.5 currently stable on 2.6. Nephrology is following along, appreciate their input and recommendations. Subjective Date/time seen: Date of service: 12/11/21 12:02 Interval history: Follow-up visit in this 76-year-old man with: Longstanding coronary artery disease is detailed in my consult note with ischemic cardiomyopathy. Patient presented with volume overload/decompensated heart failure. Feels about the same. Edema largely unchanged. Abdomen he thinks is a little softer. Did sleep well last night he thinks because he naps to frequently during the day. No chest pain, palpitation. No new issues overnight. Review of Systems Review of Systems: All systems reviewed & are unremarkable except as noted in HPI and below Constitutional: Constitutional: Reports as per HPI, Reports no additional constitutional complaints and Reports lethargy Eyes: Eyes: Reports as per HPI and Reports no additional eye complaints ENT: Reports system reviewed and no additional complaints, except as documented and Reports as per HPI Cardiovascular: Cardiovascular: Reports as per HPI, Reports no additional cardiovascular complaints and Reports dyspnea on exertion Respiratory: Respiratory: Reports as per HPI, Reports no additional respiratory complaints and Reports dyspnea on exertion Gastrointestinal: Gastrointestinal: Reports as per HPI and Reports no additional gastrointestinal complaints Genitourinary: Genitourinary: Reports no additional male genitourinary complaints and Reports as per HPI Musculoskeletal: Musculoskeletal: Reports no additional musculoskeletal complaints, Reports as per HPI and Reports back pain Integumentary/Breasts: Skin/Breast: Reports system reviewed and no additional complaints, except as docu and Reports as per HPI Neurologic: Reports system reviewed and no additional complaints,
[2021-12-11 13:18] LABS: Creatinine Urine 83.9 mg/dL; Total Protein Urine Random 31 mg/dL; Ur Ttl Prot Creatinine Ratio 0.37 mg/mg (0-0.20)
--- NOTE | 2021-12-11 13:42 | PM.IMPN ---
Progress Note: A&P Assessment and Plan (1) Elevated troponin: Code(s): R77.8 - Other specified abnormalities of plasma proteins Status: Acute Assessment and Plan: Patient has no chest pain likely these are elevated in the setting of congestive heart failure and renal disease. Trend troponins to peak. Consult cardiology as detailed above. Continue dual antiplatelet therapy, beta-teresa, and statin. (2) Chronic kidney disease, stage 4 (severe): Code(s): N18.4 - Chronic kidney disease, stage 4 (severe) Status: Acute Assessment and Plan: Creatinine is near baseline. Baseline creatinine in the 2-2.5 range. Mild fluctuation of creatinine, expected in the setting of congestive heart failure. This may be an element of cardiorenal syndrome. Kidney function is expected to improve as lower extremity edema and cardiac venous congestion get better. Monitor renal function daily while diuresing. (3) Chronic anemia: Code(s): D64.9 - Anemia, unspecified Status: Chronic Assessment and Plan: Hemoglobin and hematocrit are stable on review of previous labs. Obtain iron profile. (4) Essential hypertension: Code(s): I10 - Essential (primary) hypertension Status: Chronic Assessment and Plan: Blood pressures were reviewed and they are stable and within acceptable range. Systolic blood pressures have been in the 125/40 2-140 1/59 range. Continue cardioprotective medications and monitor blood pressures daily. (5) Hypothyroidism: Code(s): E03.9 - Hypothyroidism, unspecified Status: Acute Assessment and Plan: Continue levothyroxine. TSH was 3.8 (6) Insulin dependent type 2 diabetes mellitus: Code(s): E11.9 - Type 2 diabetes mellitus without complications; Z79.4 - detention (current) use of insulin Status: Acute Assessment and Plan: Recent hemoglobin A1c was 6.4%. Fasting blood glucose was 100. Accu-Cheks in the 86-140 range. Continue basal insulin. Continue sliding scale insulin, Accu-Cheks, and hypoglycemic protocol. 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: Code(s): I25.810 - Atherosclerosis of coronary artery bypass graft(s) without angina pectoris Status: Acute (9) Ischemic cardiomyopathy: Code(s): I25.5 - Ischemic cardiomyopathy Status: Acute (10) Acute on chronic systolic (congestive) heart failure: Code(s): I50.23 - Acute on chronic systolic (congestive) heart failure Status: Acute (11) Type 2 DM with CKD stage 4 and hypertension: Code(s): E11.22 - Type 2 diabetes mellitus with diabetic chronic kidney disease; I12.9 - Hypertensive chronic kidney disease with stage 1 through stage 4 chronic kidney disease, or unspecified chronic kidney disease; N18.4 - Chronic kidney disease, stage 4 (severe) Status: Acute Additional Plan 12/09/21 pt doing ok remains on Dobutamine gtt extensive vascular disease volume status improving w lasix 80mg BID cont current care cardio and renal following 12/10/21 remains on Dobutamine gtt doing well without complaints today total output appears low defer to cardiology's management BG at goal renal function stable cont current care 12/11/21 cont to improve on dobutamine cardio following creatinine 2.6 cont current care Subjective Date/shyla
[2021-12-11] MEDS: metOLazone 5 MG TABLET PO (16:03)
[2021-12-11] MEDS: DOBUTamine 250 MG/D5W 250 ML 250 MG/250 ML BAG 15.09 MG IV CONT (16:05)
[2021-12-11 17:12] LABS: Glucose Point of Care 128 mg/dl (65-105)
[2021-12-11] MEDS: CHOLECALCIFEROL 1,000 UNITS TABLET 5000 UNITS PO (20:50)
[2021-12-11 21:51] LABS: Glucose Point of Care 140 mg/dl (65-105)
[2021-12-12] VITALS (12 sets, daily range): BP systolic 92–144; BP diastolic 46–76; PULSE 60–88; RESP 18–20; TEMP 36.4–36.6; O2SAT 96–100
[2021-12-12] MEDS: LEVOTHYROXINE SODIUM 50 MCG TABLET PO (05:07)
[2021-12-12 05:34] LABS: Albumin Level 3.5 g/dL (3.5-5.1); Anion Gap 3 mmol/L (8-16); Blood Urea Nitrogen 53 mg/dL (9-20); Calcium 9.4 mg/dL (8.4-10.2); Carbon Dioxide 34 mmol/L (22-30); Chloride 98 mmol/L (98-107); Estimated CRCL calculation 20 ml/min; Estimated Glomerular Filt Rate 23; Glucose 138 mg/dL (65-110); Phosphorus 3.4 mg/dL (2.5-4.5); Sodium 135 mmol/L (137-145)
--- NOTE | 2021-12-12 09:22 | PM.PNCARD ---
Progress Note: A&P Additional Plan Patient is in CHF is improved. Still has moderate lower extremity edema but no significant pulmonary congestion on exam or on chest x-ray yesterday. Patient's creatinine is climbing at 2.7. I believe it is time to stop the aggressive regimen that we have currently been using as he is becoming volume depleted. Will stop the dobutamine and transition his furosemide to oral. Once he is off of IV pressors it is reasonable to consider discharge later today. Yehuda Richmond MD [facility] Subjective Date/time seen: Date of service: 12/12/21 09:22 Interval history: Follow-up visit in this 76-year-old man with: Significant ischemic cardiomyopathy with long history of coronary disease is detailed in previous notes. Patient admitted with a decompensation of biventricular failure. Has been treated with aggressive diuretics as well as intravenous dobutamine. Has had a nice response to this regimen. Feels well this morning no active complaints. Exam Const: General: comfortable and no acute distress Orientation/consciousness: patient oriented x3 Other: Pleasant elderly man Sitting upright in bed speaking in full sentences. Appears a bit more fatigued HENMT: Mouth: Yes moist mucous membranes Eyes: Sclera: sclerae normal Pupils: Equal, round and reactive pupils present Neck: Neck: supple Other: No JVD upright position Resp: Effort & Inspection: normal respiratory effort Other: Breath sounds dull at the bases bilaterally dullness now extends up upper 1/3 left lung field. Cardio: Jugular venous distension: JVD Rate: regular rate Rhythm: regular rhythm Other: soft systolic murmur GI: Auscultation: normal bowel sounds Skin: General skin exam: normal color Neuro: General: patient oriented x3 Cranial nerves: Yes Equal, round and reactive pupils present Cognition (Neuro): normal cognition Extrem: General: abnormal to inspection, edema and pedal edema Other: 2+ bilateral lower extremity edema improving abdomen distended Psych: Appearance: grossly normal Mental Status: mental status grossly normal Objective Data Vital Signs Vital Signs: Vital Signs - 24 hr 12/11/21 10:00 12/11/21 12:00 12/11/21 14:00 Temperature Pulse Rate 74 81 74 Respiratory Rate Blood Pressure Pulse Oximetry 98 12/11/21 15:59 12/11/21 16:00 12/11/21 16:05 Temperature 36.8 C Pulse Rate 74 72 67 Respiratory Rate 16 Blood Pressure 97/55 L Pulse Oximetry 100 98 12/11/21 17:56 12/11/21 18:00 12/11/21 20:00 Temperature 36.6 C Pulse Rate 76 82 Respiratory Rate 18 Blood Pressure 132/54 L 130/51 L Pulse Oximetry 94 12/11/21 20:50 12/11/21 22:00 12/12/21 00:00 Temperature 36.6 C Pulse Rate 82 80 85 Respiratory Rate 20 Blood Pressure 144/64 H Pulse Oximetry 98 12/12/21 02:00 12/12/21 04:00 12/12/21 06:00 Temperature 36.6 C Pulse Rate 80 80 79 Respiratory Rate 20 Blood Pressure 112/76 Pulse Oximetry 98 Intake/Output Intake/Output: Intake & Output 12/09/21 12/10/21 12/11/21 12/12/21 23:59 23:59 23:59 23:59 Intake Total 1770 1860 1270 400 Output Total 2475 2050 1350 1100 Balance -705 -190 -80 -700 Meds/Results Medications: Active Medications Generic Name Dose Route Start Last Admin Trade Name Freq PRN Reason Stop Dose Admin Aspirin 81 mg 12/07/21 09:00 12/11/21 09:11 Aspirin 81 Mg Enteric Tablet PO 81 mg DAILY JEFF Administration Atorvastatin Calcium 80 mg 12/07/21 09:00 12/11/21 09:09 Atorvastatin 40 Mg Tablet PO 80 mg DAILY JEFF Administration Carvedilol 12.5 mg 12/07/21 00:00 12/11/21 20:50 Carvedilol 12.5 Mg Tablet PO 12.5 mg Q12HR JEFF Administration Clopidogrel Bisulfate 75 mg 12/07/21 09:00 12/11/21 09:11 Clopidogrel Bisulfate 75 Mg Tablet PO 75 mg DAILY JEFF Administration Dextrose 12.5 gm 12/06/21 15:04 Dextrose 50% 25 Gm/50 Ml Syringe IV PUSH PRN PRN Hypoglyce
[2021-12-12] MEDS: ASPIRIN 81 MG ENTERIC TABLET PO (09:24)
[2021-12-12] MEDS: OPTI-GEN TAB 1 TABLET PO (09:24)
[2021-12-12] MEDS: CLOPIDOGREL BISULFATE 75 MG TABLET PO (09:24)
[2021-12-12] MEDS: SACUBITRIL/VALSARTAN 49-51 MG TABLET 1 TABLET PO (09:24)
[2021-12-12] MEDS: ATORVASTATIN 40 MG TABLET 80 MG PO (09:25)
[2021-12-12] MEDS: ISOSORBIDE MONONITRATE 60 MG TAB.ER.24H PO (09:25)
[2021-12-12] MEDS: carvediloL 12.5 MG TABLET PO (09:25)
[2021-12-12] MEDS: metOLazone 5 MG TABLET PO (09:25)
[2021-12-12 09:27] LABS: Glucose Point of Care 119 mg/dl (65-105)
[2021-12-12] MEDS: INSULIN GLARGINE (*BKC) 100 UNITS/ML SUB-Q (09:42)
[2021-12-12] MEDS: FUROSEMIDE INJ 100 MG/10 ML VIAL 80 MG IV PUSH (09:52)
--- NOTE | 2021-12-12 12:35 | PM.DS ---
DS: Admitting Diagnosis Discharge Date 12/12/21 Admitting Diagnosis (1) Acute exacerbation of congestive heart failure: Code(s): I50.9 - Heart failure, unspecified Status: Acute Assessment and Plan: 2nd hospitalization for the same in the last 1 month. Patient admits he is not always mindful of his salt and oral intake. Continue IV diuresis with Lasix 40 mg b.i.d. Monitor I/ O and renal function while diuresing. Continue beta-teresa and Entresto. Consult Cardiology given recurrent hospitalization. (2) Elevated troponin: Code(s): R77.8 - Other specified abnormalities of plasma proteins Status: Acute Assessment and Plan: Patient has no chest pain likely these are elevated in the setting of congestive heart failure and renal disease. Trend troponins to peak. Consult cardiology as detailed above. Continue dual antiplatelet therapy, beta-teresa, and statin. (3) Chronic kidney disease, stage 4 (severe): Code(s): N18.4 - Chronic kidney disease, stage 4 (severe) Status: Acute Assessment and Plan: Creatinine is near baseline. Monitor renal function daily while diuresing. (4) Chronic anemia: Code(s): D64.9 - Anemia, unspecified Status: Acute Assessment and Plan: Hemoglobin and hematocrit are stable on review of previous labs. (5) Essential hypertension: Code(s): I10 - Essential (primary) hypertension Status: Chronic Assessment and Plan: Blood pressures were reviewed and they are stable and within acceptable range. Continue antihypertensives and monitor blood pressures daily. (6) Hypothyroidism: Code(s): E03.9 - Hypothyroidism, unspecified Status: Acute Assessment and Plan: Continue levothyroxine and check TSH. (7) Insulin dependent type 2 diabetes mellitus: Code(s): DS: Discharge Diagnosis Discharge Diagnosis (1) Elevated troponin: Code(s): R77.8 - Other specified abnormalities of plasma proteins Status: Acute Assessment and Plan: Patient has no chest pain likely these are elevated in the setting of congestive heart failure and renal disease. Trend troponins to peak. Consult cardiology as detailed above. Continue dual antiplatelet therapy, beta-teresa, and statin. (2) Chronic kidney disease, stage 4 (severe): Code(s): N18.4 - Chronic kidney disease, stage 4 (severe) Status: Acute Assessment and Plan: Creatinine is near baseline. Baseline creatinine in the 2-2.5 range. Mild fluctuation of creatinine, expected in the setting of congestive heart failure. This may be an element of cardiorenal syndrome. Kidney function is expected to improve as lower extremity edema and cardiac venous congestion get better. Monitor renal function daily while diuresing. (3) Chronic anemia: Code(s): D64.9 - Anemia, unspecified Status: Chronic Assessment and Plan: Hemoglobin and hematocrit are stable on review of previous labs. Obtain iron profile. (4) Essential hypertension: Code(s): I10 - Essential (primary) hypertension Status: Chronic Assessment and Plan: Blood pressures were reviewed and they are stable and within acceptable range. Systolic blood pressures have been in the 125/40 2-140 1/59 range. Continue cardioprotective medications and monitor blood pressures daily. (5) Hypothyroidism: Code(s):
[2021-12-12 13:08] LABS: Glucose Point of Care 136 mg/dl (65-105)
--- NOTE | 2021-12-12 14:23 | PM.PNNEP ---
Progress Note: A&P Assessment and Plan (1) Chronic kidney disease, stage IV (severe): Code(s): N18.4 - Chronic kidney disease, stage 4 (severe) Status: Deleted Assessment and Plan: baseline creatinine runs ~ 2.0 - 2.5mg/dl due to a combination of HTN, DM, vascular disease, age and an element of cardiorenal syndrome(CHF) based on outpatient evaluation Labs shows stable creatinine above his baseline. He is on Lasix 80 b.i.d. p.o.for his volume overload. edema slowly better. (2) Acute on chronic systolic (congestive) heart failure: Code(s): I50.23 - Acute on chronic systolic (congestive) heart failure Status: Acute Assessment and Plan: Echo shows EF of 30% and severe pulmonary hypertension. On oral diuretics. edema gradually better. (3) Essential hypertension: Code(s): I10 - Essential (primary) hypertension Status: Chronic Assessment and Plan: Systolic 100-140 for the most part. He is on carvedilol and Entresto for his heart and this has been keeping his blood pressure in check as well. (4) Chronic anemia: Code(s): D64.9 - Anemia, unspecified Status: Chronic Assessment and Plan: likely partly due to CKD no need for ESAs at this time Check CBC tomorrow (5) Diabetes: Code(s): E11.9 - Type 2 diabetes mellitus without complications Status: Deleted Assessment and Plan: On Accu-Cheks and sliding-scale insulin Will continue to follow. Subjective Date/time seen: 12/12/21 14:23 Interval history: Patient is sitting at the side of the bed. He feels a lot better Than on admission. no cp or sob. still some edema. Exam Narrative: WDWN gentleman in NAD skin no rash or subcu nodules head ncat lungs decreased breath sounds at the bases. cor reg no rub or gallop abd BS+ nontender ext trace edema or cyanosis. Objective Data Vital Signs Vital Signs: Vital Signs - 24 hr 12/11/21 15:59 12/11/21 16:00 12/11/21 16:05 Temperature 36.8 C Pulse Rate 74 72 67 Respiratory Rate 16 Blood Pressure 97/55 L Pulse Oximetry 100 98 12/11/21 17:56 12/11/21 18:00 12/11/21 20:00 Temperature 36.6 C Pulse Rate 76 82 Respiratory Rate 18 Blood Pressure 132/54 L 130/51 L Pulse Oximetry 94 12/11/21 20:50 12/11/21 22:00 12/12/21 00:00 Temperature 36.6 C Pulse Rate 82 80 85 Respiratory Rate 20 Blood Pressure 144/64 H Pulse Oximetry 98 12/12/21 02:00 12/12/21 04:00 12/12/21 06:00 Temperature 36.6 C Pulse Rate 80 80 79 Respiratory Rate 20 Blood Pressure 112/76 Pulse Oximetry 98 12/12/21 08:00 12/12/21 09:25 12/12/21 10:00 Temperature 36.6 C Pulse Rate 75 76 71 Respiratory Rate 20 Blood Pressure 139/55 L Pulse Oximetry 99 12/12/21 11:38 12/12/21 12:00 12/12/21 13:53 Temperature 36.4 C Pulse Rate 63 67 Respiratory Rate 20 Blood Pressure 111/46 L Pulse Oximetry 96 99 Intake/Output Intake/Output: Intake & Output 12/09/21 12/10/21 12/11/21 12/12/21 23:59 23:59 23:59 23:59 Intake Total 1770 1860 1270 1200 Output Total 2475 2050 1350 1100 Balance -705 -190 -80 100 Meds/Results Medications: Active Medications Generic Name Dose Route Start Last Admin Trade Name Arunq PRN Reason Stop Dose Admin Aspirin 81 mg 12/07/21 09:00 12/12/21 09:24 Aspirin 81 Mg Enteric Tablet PO 81 mg DAILY JEFF Administration Atorvastatin Calcium 80 mg 12/07/21 09:00 12/12/21 09:25 Atorvastatin 40 Mg Tablet PO 80 mg DAILY JEFF Administration Carvedilol 12.5 mg 12/07/21 00:00 12/12/21 09:25 Carvedilol 12.5 Mg Tablet PO 12.5 mg Q12HR JEFF Administration Clopidogrel Bisulfate 75 mg 12/07/21 09:00 12/12/21 09:24 Clopidogrel Bisulfate 75 Mg Tablet PO 75 mg DAILY JEFF Administration Dextrose 12.5 gm 12/06/21 15:04 Dextrose 50% 25 Gm/50 Ml Syringe IV PUSH PRN PRN Hypoglycemia Protocol Fu
[2021-12-12 17:03] LABS: Glucose Point of Care 116 mg/dl (65-105)
[2021-12-12] MEDS: FUROSEMIDE 80 MG TABLET PO (17:45)
--- NOTE | 2021-12-12 18:22 | PC.NURSE ---
pt given discharge instructions, medications reviewed. pt verbalized understanding. pt ok to discharge when his ride arrives. questions elicited pt agreeable.
== END 2021-12-12 18:34 | disposition home or self-care (01) | DRG 291 ==
LOC: ANHED 09:27 → ANHIMU 11:22
PROVIDERS: Internal Medicine Nephrology; Nurse Practitioner; Physician Assistant; Admitting Provider Family Medicine; Emergency Provider Emergency Medicine; PCP Family Medicine; Visit Provider Hospitalist
DX: I13.0 Hypertensive heart and chronic kidney disease with heart failure and stage 1 through stage 4 chronic kidney disease, or unspecified chronic kidney disease (principal); I50.23 Acute on chronic systolic (congestive) heart failure; N18.4 Chronic kidney disease, stage 4 (severe); I25.810 Atherosclerosis of coronary artery bypass graft(s) without angina pectoris; I25.5 Ischemic cardiomyopathy; I27.20 Pulmonary hypertension, unspecified; E11.22 Type 2 diabetes mellitus with diabetic chronic kidney disease; Z20.822 Contact with and (suspected) exposure to COVID-19; G47.33 Obstructive sleep apnea (adult) (pediatric); R77.8 Other specified abnormalities of plasma proteins; D63.1 Anemia in chronic kidney disease; E03.9 Hypothyroidism, unspecified; E11.51 Type 2 diabetes mellitus with diabetic peripheral angiopathy without gangrene; J44.9 Chronic obstructive pulmonary disease, unspecified; Z79.4 Long term (current) use of insulin; Z79.82 Long term (current) use of aspirin; Z87.891 Personal history of nicotine dependence; Z88.0 Allergy status to penicillin; Z95.5 Presence of coronary angioplasty implant and graft; Z95.810 Presence of automatic (implantable) cardiac defibrillator; Z98.49 Cataract extraction status, unspecified eye
CPT/HCPCS: 36415; 71045; 71046; 80048; 80053; 80069; 82570; 82948; 83735; 83880; 84156; 84443; 84484; 85025; 85027; 85055; 85610; 85730; 93005; 93970; 96365; 96366; 96374; 96375; 96376; 97110; 97116; 97161; 97165; 97530; 97535; 99285; A9270; C8929; C9803; G0378; J1250; J1815; J1940; Q9957; U0003; U0005

== ENCOUNTER 2021-12-26 20:39 | Inpatient (IN) | payer MEDICARE, SELFPAY ==
--- NOTE | ~2021-12-26 | XR_ITS ---
EXAMINATION: XR chest 1V portable DATE: 12/26/2021 23:12 INDICATION: Dyspnea TECHNIQUE: frontal view of the chest was obtained. COMPARISON: Chest radiograph dated 12/11/2021 FINDINGS: Cardiomegaly with pulmonary vascular congestion. Persistent opacities in the left mid to lower lung z ones consistent with small left pleural effusion with associated basilar atelectasis and/or pneumonia . No pneumothorax or right-sided pleural effusion. Median sternotomy wires and mediastinal surgical c lips are seen, likely from prior coronary artery bypass grafting. Single lead cardiac pacemaker/defib rillator with lead tip near the apex of the right ventricle. IMPRESSION: 1. Persistent small left pleural effusion with atelectasis and/or pneumonia the left lower lung zone. 2. Cardiomegaly with pulmonary vascular congestion. Reviewed, dictated and finalized at location A. [employer]
--- NOTE | ~2021-12-26 | CT_ITS ---
EXAMINATION: CT abdomen pelvis wo con DATE: 12/26/2021 21:54 INDICATION: Sudden onset severe back pain TECHNIQUE: Computed tomography (CT) of the abdomen and pelvis was performed without intravenous contr ast. Automated exposure control and iterative reconstruction technique were employed. The dose-length product was 1202.78 mGy-cm. COMPARISON: 02/24/2016 FINDINGS: Small posterior layering left pleural effusion with dependent compressive atelectasis in the left low er lobe. Small calcified right middle lobe nodule, calcified mediastinal lymph nodes and multiple hep atic and splenic calcific lesions, all consistent with old granulomatous disease. Cardiomegaly. Ather osclerotic coronary artery calcifications unchanged prior median sternotomy and coronary artery bypas s grafting. Cardiac pacemaker/defibrillator lead tip near the apex of the right ventricle. There is suggestion of some liver surface nodularity suspicious for cirrhosis. Layering tiny high att enuation gallstones at the neck of the normal appearing gallbladder. Pancreas and bilateral adrenal g lands are normal. Mild atrophy at the left kidney and severe right renal atrophy. Couple small stones at the upper pole of the right kidney measuring up to 2 mm. Small calcification at the left renal hi lum appear more likely to represent atherosclerotic calcifications and additional stones. Moderate am ount of ascites throughout the abdomen and pelvis. Loop of nonobstructed small bowel extends through a right paraumbilical ventral hernia. There are additional small fat and fluid containing ventral her nias on both the left and right. Appendix is normal. There is calcified atherosclerosis of the aorta and many of the other arteries. S tenting at the origin of the right renal artery and superior mesenteric artery. Aortobiiliac stent wh ich on the right extends external to the [place] right common iliac artery with anastomosis to the rig ht external iliac artery immediately following the iliac bifurcation. Bladder is normal. Diffuse body wall edema. No abscess or free intraperitoneal gas. Severe left hip osteoarthritis. Mild to moderate degenerative skeletal changes in the spine and right hip. IMPRESSION: 1. Small left pleural effusion. 2. Moderate amount of ascites which may be related to cirrhosis with suggestion of subtle liver surfa ce nodularity. 3. Cholelithiasis. 4. Tiny nonobstructing right renal stones. Calcific location and a few more likely atherosclerotic in additional nephrolithiasis. 5. Several umbilical hernias, one in the right lower quadrant containing short segment of nonobstruct ed small bowel. 6. Mild left and severe right renal atrophy. 7. Extensive atherosclerotic calcifications with vascular stenting as detailed above. Reviewed, dictated and finalized at location A. ING TUB OPERATOR IMPRESSION: 1. Small left pleural effusion. 2. Moderate amount of ascites which may be related to cirrhosis with suggestion of subtle liver surface nodularity. 3. Cholelithiasis. 4. Tiny nonobstructing right renal stones. Calcific location and a few more lik shawn atherosclerotic in additional nephrolithiasis. 5. Several umbilical hernias, one in the right lower quadrant containing short segment of nonobstructed small bowel. 6. Mild left and severe right renal atrophy. 7. Extensive atherosclerotic calcifications with vascular stenting as detailed above.
--- NOTE | ~2021-12-26 | US_ITS ---
EXAMINATION: US venous doppler [facility] DATE: 12/27/2021 10:41 INDICATION: Lower limb edema. TECHNIQUE: Grayscale ultrasound images without and with compression and Doppler ultrasound images of the bilateral lower extremity veins were obtained. COMPARISON: Ultrasound 12/07/2021 FINDINGS: The visualized portions of right common femoral vein, profunda (deep) femoral vein, femoral vein, pop liteal vein, peroneal veins, posterior tibial veins, and greater saphenous vein outflow are patent. The visualized portions of left common femoral vein, profunda femoral vein, femoral vein, popliteal v ein, peroneal veins, posterior tibial veins, and greater saphenous vein outflow are patent. IMPRESSION: 1. No deep venous thrombosis. Reviewed, dictated and finalized at location A. BENDER TANK
[2021-12-26 20:40] VITALS: BP 142/99; PULSE 72; RESP 22; O2SAT 97
--- NOTE | 2021-12-26 20:44 | ECG_ITS ---
Measurements Intervals [place] Rate: 56 P: 18 IL: 150 QRS: 24 QRSD: 118 T: 171 QT: 442 QTc: 428 Interpretive Statements SINUS BRADYCARDIA ELECTRONIC VENTRICULAR PACEMAKER COMPLEX AND VENTRICULAR PREMATURE COMPLEX INTRAVENTRICULAR CONDUCTION DELAY CONSIDER INFERIOR INFARCT, AGE INDETERMINATE ST-T WAVE ABNORMALITY IN ANT/HIGH LAT LEADS- CONSIDER ISCHEMIA ABNORMAL ECG Electronically Signed On 12-27-2021 6:20:16 [employer] by Leon Mckeon D.O.
[2021-12-26 20:45] VITALS: TEMP 36.6
[2021-12-26 21:00] VITALS: RESP 20
--- NOTE | 2021-12-26 21:13 | ED.GENADULT ---
HPI - General Adult General Chief complaint: Back Pain/Injury Stated complaint: BACK PAIN Time Seen by Provider: 12/26/21 21:03 Source: RN notes reviewed History of Present Illness HPI narrative: Patient presents emergency department from home for back pain. Patient states symptoms occurred approximately 1 hour ago. Patient states he has been using the restroom and then had stood to get up following using the restroom he states he had a severe sharp pain in his bilateral lower back states the pain has improved at this time to a dull ache but is still present he states that he did not fall to the ground he denies any direct trauma or injury states he is having some lower abdominal pain at this time states his abdomen has been tight he states he had some dry heaves yesterday but denies any vomiting today denies any fevers or chills chest pain shortness of breath or any other symptoms he denies any numbness or weakness of the extremities denies bowel or bladder incontinence Related Data Home Medications Medication Instructions Recorded Confirmed atorvastatin 80 mg tablet 80 mg PO DAILY 09/23/19 12/06/21 Entresto 1 tablet PO Q12H 01/08/20 12/06/21 PreserVision AREDS-2 1 cap PO Q12H 10/20/20 12/06/21 aspirin 81 mg tablet,delayed 81 mg PO DAILY 01/19/21 12/06/21 release carvedilol 12.5 mg tablet 12.5 mg PO Q12H 01/19/21 12/06/21 furosemide 40 mg tablet 40 mg PO Q12H tablet 01/19/21 12/06/21 Gloriaaglhui Mauricio U-100 Insulin 5 unit SUBCUT QA 08/02/21 12/06/21 cholecalciferol (vitamin D3) 125 mcg PO HS 08/02/21 12/06/21 isosorbide mononitrate 60 mg PO DAILY 08/02/21 12/06/21 Allergies Allergy/AdvReac Type Severity Reaction Status Date / Time Penicillins Allergy Severe unknown Verified 11/14/21 12:49 Review of Systems Review of Systems: Gen.: Denies fevers or chills ENT: Denies congestion Respiratory: Denies shortness of breath or cough CV: Denies chest pain or palpitations GI: See HPI denies burning, urgency, frequency or hematuria Musculoskeletal: Reports low back pain Neuro: Denies numbness, tingling, weakness or focal weakness Skin: Denies rash Except as documented, all other systems reviewed and negative [facility] Past Medical History Medical History Abdominal aortic aneurysm Arthritis Carotid stenosis, bilateral Carpal tunnel syndrome Chronic anemia Chronic kidney disease, stage 4 (severe) COPD (chronic obstructive pulmonary disease) Deep venous thrombosis Essential hypertension Gastroesophageal reflux disease Heart failure with reduced ejection fraction Echo in 07/2021: 1. Technically difficult study with limited views. 2. Moderately reduced LF function with an EF estimated at 30-35% with hypokinesis of the mid to basal anterolateral, inferior, anterior, and basal inferoseptal [place] with relative sparing of the apex. 3. Mildly increased LV wall thickness. 4. Left atria is moderately enlarged. 5. Mild tricuspid valve regurgitation. 6. Severe pulmonary hypertension with an estimated pulmonary arterial systolic pressure of 65 mmHg. Hypothyroidism Insulin dependent type 2 diabetes mellitus Mixed hyperlipidemia Obstructive sleep apnea Intolerant to CPAP. Wears oxygen at nighttime. Pancreatitis Peripheral vascular disease Psoriasis Umbilical hernia without obstruction and without gangrene Surgical History Surgical History (Updated 12/06/21 @ 15:03 by Joselyn Story PA-C) H/O abdominal surgery Revascularization to renal arteries and mesenteric artery H/O fasciotomy Right leg History of cataract extraction History of embolectomy Right leg History of stent insertion of renal artery History of tonsillectomy Hx of CABG Initially 5 vessel CABG and later on he had 1 that was redone now for those vessels are occluded he has collateral only 1 vessel is pain Hx of cardiac catheterization Multiple times Presence of combination internal cardiac defibrillat
[2021-12-26 21:19] LABS: Basophils Percent Auto 0.5 % (0.2-1.2); Eosinophils Absolute Auto 0.2 K/mm3 (0-0.3); Eosinophils Percent Auto 2.1 % (0-4.4); Hematocrit 34.6 % (42.0-52.0); Hemoglobin 10.4 g/dL (14.0-18.0); Immature Granulocyte Absolute 0.03 K/mm3 (0.00-0.031); Immature Granulocyte Percent A 0.4 % (0-0.5); Lymphocytes Absolute Auto 0.84 K/mm3 (0.9-3.2); Lymphocytes Percent Auto 11.5 % (18.3-44.2); Mean Corpuscular HGB Conc 30.1 g/dl (32-36); Mean Corpuscular Hemoglobin 29.8 pg (26-34); Mean Corpuscular Volume 99.1 fl (80-100); Mean Platelet Volume 12.9 fl (7.4-10.4); Monocytes Absolute Auto 0.6 K/mm3 (0.1-0.6); Neutrophils Absolute Auto 5.6 K/mm3 (1.3-6.7); Neutrophils Percent Auto 77.5 % (45.5-73.1); Platelet Count Result 144 k/mm3 (150-375); Red Blood Count 3.49 M/mm3 (4.6-6.20); Red Cell Distribution Width 17.3 % (11.5-14.5); White Blood Count 7.3 K/mm3 (4.5-10.0)
[2021-12-26 21:36] LABS: Alanine Aminotransferase 14 U/L (4-50); Albumin Level 3.8 g/dL (3.5-5.1); Alkaline Phosphatase 80 U/L (38-126); Anion Gap 10 mmol/L (8-16); Aspartate Amino Transferase 20 U/L (17-59); Bilirubin,Total 0.7 mg/dL (0.2-1.3); Blood Urea Nitrogen 71 mg/dL (9-20); Calcium 8.9 mg/dL (8.4-10.2); Carbon Dioxide 25 mmol/L (22-30); Chloride 107 mmol/L (98-107); Estimated CRCL calculation 22 ml/min; Estimated Glomerular Filt Rate 21; Glucose 135 mg/dL (65-110); Lipase 171 U/L (23-300); Sodium 142 mmol/L (137-145)
[2021-12-26 21:37] LABS: INR 1.3; Partial Thromboplastin Time 34.8 SECONDS (22.3-36.8); Prothrombin Time 15.8 Seconds (11.1-14.7)
[2021-12-26 21:41] VITALS: BP 137/66; PULSE 66; RESP 14; O2SAT 95
[2021-12-26 22:57] LABS: Add Urine Microscopic? YES; Appearance Urine Clear (Clear); Bilirubin Urine Negative (Negative); Blood Urine Negative (Negative); Color Urine Yellow (Yellow); Glucose Urine UA Negative (Negative); Ketones Urine Negative (Negative); Leukocyte Esterase Ur Negative LEU/UL (Negative); Mucus Urine Rare /lpf; Nitrate Urine Negative (Negative); Protein Urine 2+ mg/dL (Negative); RBC Urine 0-2 /hpf (0-2); Specific Grav Ur 1.011 (1.001-1.035); Urobilinogen Urine Negative mg/dL (<2.0); WBC Urine 0-3 /hpf
[2021-12-26 23:00] VITALS: BP 138/70; PULSE 73; RESP 18; O2SAT 98
[2021-12-26 23:58] LABS: NT Pro B Type Natriuretic Pept > 35000 pg/mL (5-100); Troponin I 0.054 ng/mL (0.000-0.034)
[2021-12-27] VITALS (19 sets, daily range): BP systolic 117–151; BP diastolic 43–96; PULSE 56–80; RESP 16–24; TEMP 35.9–37; O2SAT 92–100; BMI 32.4
[2021-12-27] MEDS: FUROSEMIDE INJ 40 MG/4 ML VIAL IV PUSH (00:40)
--- NOTE | 2021-12-27 01:30 | ADMGEN ---
This patient, Jaime Morrell, was admitted to [facility] as an IMU overflow at 0131. Patient/family oriented to hospital policies and general routines including ID bracelet, bed and alarms, visiting hours, pain management, procedures, bathroom and other care routines, personal items, smoking policy, room service/diet, and visiting hours. Information on how to activate the Rapid Response Team has been discussed. Patient/Family are encouraged to report perceived risks to care and to ask questions if they do not understand what they are told or what they should do.
[2021-12-27 04:07] LABS: Troponin I 0.054 ng/mL (0.000-0.034)
[2021-12-27 06:27] LABS: Potassium 5.6 mmol/L (3.4-5.0)
[2021-12-27 06:30] LABS: Anion Gap 6 mmol/L (8-16); Blood Urea Nitrogen 71 mg/dL (9-20); Calcium 8.9 mg/dL (8.4-10.2); Carbon Dioxide 27 mmol/L (22-30); Chloride 109 mmol/L (98-107); Estimated CRCL calculation 22 ml/min; Estimated Glomerular Filt Rate 21; Glucose 108 mg/dL (65-110); Sodium 142 mmol/L (137-145)
[2021-12-27 06:40] LABS: Troponin I 0.054 ng/mL (0.000-0.034)
--- NOTE | 2021-12-27 07:15 | PM.CNNEP ---
Assessment and Plan Assessment and plan (1) Chronic kidney disease, stage 4 (severe): Code(s): N18.4 - Chronic kidney disease, stage 4 (severe) Status: Acute Assessment and Plan: Patient has chronic kidney disease. This is likely related to diabetes and hypertension. Vascular disease is also playing a role as he had bilateral stents years ago. His ultrasound has showed small kidneys. His creatinine generally runs 2.5-2.7. Today it is 2.9. He is certainly not dehydrated. His CT scan did not show obstruction. Perhaps this is just progression of kidney disease. He also could have an element of cardiorenal syndrome with his low ejection fraction. Will check urine electrolytes. Will give diuretics. (2) Volume overload: Code(s): E87.70 - Fluid overload, unspecified Status: Acute Assessment and Plan: Patient has fluid overload. This is from a combination of kidney disease and heart disease. His renal function may deteriorate with aggressive diuresis. However he can not walk around in heart failure. Will try diuretics and see if we can get some of the fluid off without bothering the kidneys too much. He realizes that his kidney function is worsening and that his kidneys are probably wearing out. He may end up on dialysis but will try meds 1st. He has no uremic symptoms. (3) Acute hyperkalemia: Code(s): E87.5 - Hyperkalemia Status: Acute Assessment and Plan: The potassium is high. Will give Kayexalate. (4) CHF (congestive heart failure): Code(s): I50.9 - Heart failure, unspecified Status: Acute Assessment and Plan: The patient has congestive heart failure with an EF of only 30-35%. (5) Essential hypertension: Code(s): I10 - Essential (primary) hypertension Status: Chronic Assessment and Plan: His blood pressure is under good control (6) Chronic anemia: Code(s): D64.9 - Anemia, unspecified Status: Chronic Assessment and Plan: Hemoglobin is 10.4. No need for Epogen right now. (7) Obstructive sleep apnea: Code(s): G47.33 - Obstructive sleep apnea (adult) (pediatric) Status: Acute Assessment and Plan: He wears oxygen at night. (8) Low back pain: Code(s): M54.50 - Low back pain, unspecified Status: Acute Assessment and Plan: This is now resolved History of Present Illness Reason for Consult Consult date: 12/27/21 Chief Complaint Chief complaint: CHF,Hyperkalemia,Chronic Renal Insufficiency,Low B History of Present Illness Narrative: Jaime is a very pleasant 76-year-old gentleman who has multiple medical problems including chronic kidney disease, he follows with Dr. Ureña in the office. He also has diabetes, hypertension, coronary disease status post [place], congestive heart failure, hypothyroidism, macular degeneration, bilateral renal artery stenosis fix many years ago, multiple abdominal hernias, abdominal aortic aneurysm, arthritis, anemia Crohn a COPD, sleep apnea S, history of pancreatitis. The patient was recently in the hospital for volume overload. He was diuresed and sent home. He was doing really well he says. His swelling was relatively minimal up until 2 or 3 days ago when he noted the swelling was getting worse. This gradually worsened and also had more shortness of breath. Yesterday patient was getting up off the commode and had a sharp low back pain. He says this occasionally happens when he is working in lifting but has not happened just standing up. He says that it was severe and lasted a while so he went to the ER. In the ER he was given some Tylenol and his pain went away. However he was found to have lots of swelling and his creatinine was elevated so he was admitted. His potassium was also high. He was given 1 dose of IV Lasix. Patient says that he does drink some orange juice. He is not on any potassium supplements and no longer takes spirono
--- NOTE | 2021-12-27 07:47 | PM.IMHP ---
H&P: HPI History of Present Illness Date/Time: 12/27/21 07:47 Jaime is a very pleasant 76-year-old gentleman who has multiple medical problems including chronic kidney disease, he follows with refractory furnace designer Dr. Ureña in the office, has an AICD in place, and follows with belly roller outpatient. He wears oxygen at night, has DM, HTN, DM, CAD s/p DC, CHF, hypothyroidism, macular degeneration, bilateral renal artery stenosis (approx.2006), multiple abdominal hernias, abdominal aortic aneurysm, arthritis, anemia, Crohns, COPD, sleep apnea S, & hx.pancreatitis. Jaime presented to emergency department from home for back pain that started about 1 hour prior to arrival. He was using the restroom at home, stood to get up, and started having severe sharp pain in his bilateral lower back. In the ER he was given some Tylenol and his pain resolved, but he had lots of swelling and creatinine elevated. His back pain improved to a dull ache and he was also having some lower abdominal pain at admission. No recent trauma, falls, surgery. He does have history of significant abdominal surgeries with deformity of abdomen, so its very likely that he has significant amount of adhesions abdominal that could contribute to low back pain. He had some dry heaves and vomiting over the weekend starting on Sunday, but denies numbness or weakness of the extremities, denies bladder incontinence, denies any fevers, chills, chest pain, shortness of breath. He is having urgent BMs, of diarrhea and incontinence. He denies anyone else at home having diarrhea and he denies having had antibiotics over the last 4 weeks. Patient states that his abdominal belly distension and tauntness has gone down in size/improved since admitted, having 3 BMs today since midnight, and receiving lasix and bumex diuresis. Over the weekend Jaime admitted to having quite a bit of orange juice, a big meal of spaghetti. He does not take potassium supplements or spironolactone, not been taking Motrin, Aleve, ibuprofen, but he does have chronic kidney disease, related to kidney failure status post surgery approximately 15 years ago when he had his multiple abdominal surgeries and also required bilateral renal artery stents. It is very likely that his kidney failure is only exacerbated by his diabetes, hypertension, vascular disease these, CHF with EF of 30%. His potassium was also elevated to 6.0 admission. This was treated with 1 dose of IV Lasix, Bumex, and Kayexalate. Renal ultrasound has showed small kidneys. He is not dehydrated, but acutally fluid overloaded. His CT scan did not show obstruction. His baseline creatinine is 2.2, his creatinine today is 2.9. Nephrology is checking urine electrolytes. His BNP is severely elevated, >28576, he has chronic elevated troponins due to his level of heart failure with an EF of only 30-35%, his 3 troponins admission were all stable and unchanged. Will have to monitor how his kidneys respond to diuresis, may only tolerate slow diuresing. Appreciate the refractory furnace designer consultation, recommendations, and treatments. Patient will be admitted for Observation, under supervising physician Dr. Max. Patient states that his abdominal belly distension and tauntness has gone down in size/improved since admitted, having 3 BMs today since midnight, and receiving lasix and bumex diuresis. Since his shortness of breath and lower back pain has resolved with diuresis and Tylenol, and not returned, he is stable enough to be transferred out of chest pain center to the Med-Telemetry floor with continued telemetry monitoring. Chief Complaint: Low back pain, shortness of breath Review of Systems Review of Systems: All systems reviewed & are unremarkable except as noted in HPI and below Constitutional: Constitutional: Reports no additional constitutional complaints, Reports lethargy, Reports weakness and Reports weight gain Eyes: Eyes: Reports no additional eye complaints ENT: Reports system revie
[2021-12-27 08:49] LABS: NT Pro B Type Natriuretic Pept > 35000 pg/mL (5-100)
[2021-12-27 09:15] LABS: Magnesium 2.5 mg/dL (1.6-2.3)
[2021-12-27 09:21] LABS: Cholesterol 63 mg/dL (0-200); HDL Direct 22 mg/dL; Triglycerides 73 mg/dL (<150)
[2021-12-27 09:32] LABS: LDL Cholesterol Direct 36 mg/dL
[2021-12-27 09:37] LABS: Total Protein Urine Random 17 mg/dL; Ur Ttl Prot Creatinine Ratio 0.27 mg/mg (0-0.20)
[2021-12-27 09:40] LABS: Sodium Urine Random 106 meq/L
[2021-12-27 09:55] LABS: IFOB Positive Control Positive; Immunochemical Fecal Occult Bl Negative (N)
[2021-12-27 10:23] LABS: Toxigenic C. Diff NEGATIVE (NEGATIVE)
[2021-12-27] MEDS: ATORVASTATIN 40 MG TABLET 80 MG PO (10:25)
[2021-12-27] MEDS: SACUBITRIL/VALSARTAN 49-51 MG TABLET 1 TABLET PO ×2 (10:25→20:05)
[2021-12-27] MEDS: PANTOPRAZOLE 40 MG TABLET PO (10:25)
[2021-12-27] MEDS: LEVOTHYROXINE SODIUM 50 MCG TABLET PO (10:25)
[2021-12-27] MEDS: ASPIRIN 81 MG ENTERIC TABLET PO (10:25)
[2021-12-27] MEDS: OPTI-GEN TAB 1 TABLET PO ×2 (10:25→20:05)
[2021-12-27] MEDS: carvediloL 6.25 MG TABLET PO ×2 (10:25→20:04)
[2021-12-27] MEDS: CLOPIDOGREL BISULFATE 75 MG TABLET PO (10:33)
[2021-12-27] MEDS: INSULIN GLARGINE (*BKC) 100 UNITS/ML SUB-Q (10:38)
[2021-12-27] MEDS: BUMETANIDE INJ 1 MG/4 ML VIAL IV PUSH ×2 (10:41→17:12)
[2021-12-27 12:22] LABS: Basophils Percent Auto 0.4 % (0.2-1.2); Eosinophils Absolute Auto 0.2 K/mm3 (0-0.3); Eosinophils Percent Auto 2.4 % (0-4.4); Hematocrit 32.6 % (42.0-52.0); Hemoglobin 9.8 g/dL (14.0-18.0); Immature Granulocyte Absolute 0.03 K/mm3 (0.00-0.031); Immature Granulocyte Percent A 0.4 % (0-0.5); Lymphocytes Absolute Auto 0.82 K/mm3 (0.9-3.2); Lymphocytes Percent Auto 11.8 % (18.3-44.2); Mean Corpuscular HGB Conc 30.1 g/dl (32-36); Mean Corpuscular Hemoglobin 29.1 pg (26-34); Mean Corpuscular Volume 96.7 fl (80-100); Mean Platelet Volume 12.6 fl (7.4-10.4); Monocytes Absolute Auto 0.6 K/mm3 (0.1-0.6); Monocytes Percent Auto 8.9 % (2.6-8.5); Neutrophils Absolute Auto 5.3 K/mm3 (1.3-6.7); Neutrophils Percent Auto 76.1 % (45.5-73.1); Platelet Count Result 140 k/mm3 (150-375); Red Blood Count 3.37 M/mm3 (4.6-6.20); Red Cell Distribution Width 17.3 % (11.5-14.5); White Blood Count 6.9 K/mm3 (4.5-10.0)
[2021-12-27 12:44] LABS: Anion Gap 8 mmol/L (8-16); Blood Urea Nitrogen 71 mg/dL (9-20); Calcium 9.4 mg/dL (8.4-10.2); Carbon Dioxide 25 mmol/L (22-30); Chloride 108 mmol/L (98-107); Estimated CRCL calculation 22 ml/min; Estimated Glomerular Filt Rate 21; Glucose 93 mg/dL (65-110); Potassium 5.6 mmol/L (3.4-5.0); Sodium 141 mmol/L (137-145)
[2021-12-27 13:02] LABS: Glucose Point of Care 96 mg/dl (65-105)
[2021-12-27] MEDS: LIDOCAINE 5% PATCH 3 PATCH TRANSDERM (13:55)
[2021-12-27 15:52] LABS: Potassium 5.5 mmol/L (3.4-5.0)
[2021-12-27] MEDS: SODIUM POLYSTYRENE SULFONONATE 15 GM/60 ML BTL 30 GM PO (16:28)
[2021-12-27 16:40] LABS: Glucose Point of Care 153 mg/dl (65-105)
[2021-12-27] MEDS: BUMETANIDE INJ 2.5 MG/10 ML VIAL 1 MG IV PUSH (17:13)
--- NOTE | 2021-12-27 17:24 | PC.NURSE ---
1723-pt transferred to [facility] via wheelchair and pt has belongings with him during transport, including wallet, phone, tablet, and clothes.
[2021-12-27] MEDS: CHOLECALCIFEROL 1,000 UNITS TABLET 5000 UNITS PO (20:05)
[2021-12-27 20:23] LABS: Glucose Point of Care 129 mg/dl (65-105)
[2021-12-28] VITALS (14 sets, daily range): BP systolic 115–137; BP diastolic 43–67; PULSE 57–86; RESP 16–18; TEMP 36–36.5; O2SAT 91–99
[2021-12-28 05:57] LABS: Basophils Percent Auto 0.3 % (0.2-1.2); Eosinophils Absolute Auto 0.1 K/mm3 (0-0.3); Eosinophils Percent Auto 1.6 % (0-4.4); Hematocrit 35.7 % (42.0-52.0); Hemoglobin 10.7 g/dL (14.0-18.0); Immature Granulocyte Absolute 0.02 K/mm3 (0.00-0.031); Immature Granulocyte Percent A 0.3 % (0-0.5); Lymphocytes Absolute Auto 0.89 K/mm3 (0.9-3.2); Lymphocytes Percent Auto 12.9 % (18.3-44.2); Mean Corpuscular Hemoglobin 29.4 pg (26-34); Mean Corpuscular Volume 98.1 fl (80-100); Mean Platelet Volume 12.8 fl (7.4-10.4); Monocytes Absolute Auto 0.6 K/mm3 (0.1-0.6); Monocytes Percent Auto 9.3 % (2.6-8.5); Neutrophils Absolute Auto 5.2 K/mm3 (1.3-6.7); Neutrophils Percent Auto 75.6 % (45.5-73.1); Platelet Count Result 151 k/mm3 (150-375); Red Blood Count 3.64 M/mm3 (4.6-6.20); Red Cell Distribution Width 17.5 % (11.5-14.5); White Blood Count 6.9 K/mm3 (4.5-10.0)
[2021-12-28 06:01] LABS: Albumin Level 3.9 g/dL (3.5-5.1); Anion Gap 10 mmol/L (8-16); Blood Urea Nitrogen 71 mg/dL (9-20); Calcium 9.4 mg/dL (8.4-10.2); Carbon Dioxide 24 mmol/L (22-30); Chloride 111 mmol/L (98-107); Estimated CRCL calculation 20 ml/min; Estimated Glomerular Filt Rate 20; Glucose 117 mg/dL (65-110); Sodium 145 mmol/L (137-145)
[2021-12-28 06:07] LABS: NT Pro B Type Natriuretic Pept > 35000 pg/mL (5-100)
[2021-12-28] MEDS: LEVOTHYROXINE SODIUM 50 MCG TABLET PO (06:11)
[2021-12-28 07:43] LABS: Glucose Point of Care 110 mg/dl (65-105)
[2021-12-28] MEDS: metOLazone 5 MG TABLET PO (08:09)
[2021-12-28] MEDS: carvediloL 6.25 MG TABLET PO ×2 (08:09→20:08)
[2021-12-28] MEDS: ATORVASTATIN 40 MG TABLET 80 MG PO (08:10)
[2021-12-28] MEDS: CLOPIDOGREL BISULFATE 75 MG TABLET PO (08:11)
[2021-12-28] MEDS: ISOSORBIDE MONONITRATE 60 MG TAB.ER.24H PO (08:11)
[2021-12-28] MEDS: OPTI-GEN TAB 1 TABLET PO ×2 (08:11→20:08)
[2021-12-28] MEDS: ASPIRIN 81 MG ENTERIC TABLET PO (08:11)
[2021-12-28] MEDS: PANTOPRAZOLE 40 MG TABLET PO (08:11)
[2021-12-28] MEDS: SACUBITRIL/VALSARTAN 49-51 MG TABLET 1 TABLET PO ×2 (08:11→20:08)
[2021-12-28] MEDS: INSULIN GLARGINE (*BKC) 100 UNITS/ML SUB-Q (08:14)
[2021-12-28] MEDS: BUMETANIDE INJ 2.5 MG/10 ML VIAL 1 MG IV PUSH ×2 (08:15→16:29)
[2021-12-28] MEDS: LIDOCAINE 5% PATCH 3 PATCH TRANSDERM (08:23)
--- NOTE | 2021-12-28 11:30 | PM.CNCAR ---
Assessment and Plan Additional Plan this is a 76-year-old man with the above well documented history of coronary disease and has fairly advanced severe ischemic cardiomyopathy. As stated above he is approaching end-stage ischemic heart disease as he only has 1 remaining saphenous vein graft to his LAD as his only known coronary circulation and now is developing congestive heart failure and worsening renal function. It must be remembered however the reason he came into the hospital was acute low back pain which has nothing to do with any of this as far as I can tell. He still has moderate bilateral lower extremity edema on physical exam but I do not perceive this to be any worse than the day we discharged him a couple of weeks ago and he does not believe it is any worse either. He does not have any chest congestion and I do not believe we need to or can not provide any more relief of his edema because more aggressive diuresis will undoubtedly result in unacceptable azotemia. When evaluation of his back pain is completed I believe he can be discharged from my perspective. Obviously his prognosis is poor and Mr. Morrell is a very nice gentleman who understands that very well. Yehuda Richmond MD [facility] History of Present Illness History of Present Illness Consult date/time: 12/28/21 11:30 Consult reason: congestive heart failure Reason For Visit: CHF,Hyperkalemia,Chronic Renal Insufficiency,Low B Narrative: This is a 76-year-old man with a history of coronary disease a significant ischemic cardiomyopathy was well-known to me and other physicians in this hospital in in our practice. He came to the hospital on this particular admission because of sudden onset of severe low back pain that was something like he has never experienced in the past so he came to the emergency department for evaluation. The patient has been treated with analgesics and is feeling better. I do not believe there has been any specific diagnosis made regarding this pain. When he comes to the hospital it is been noted that he has moderate bilateral lower extremity edema and because of that I have been asked to see him in consultation. In addition to this on admission yesterday his electrolytes showed significant hyperkalemia which has been treated and normalized this morning. I will not reiterate all of his cardiac history as I just saw him here a couple of weeks ago and the reader is referred to that note. In summary however he is a man with a it long history of coronary artery disease, 2 previous coronary bypass operations and known occlusion of all of his [place] coronary circulation and all of his previous bypass grafts except for a saphenous vein graft to the LAD that is more than 2 decades old at this time. The time of his most recent angiographic evaluation in 2019 it was determined that there are no further opportunities to provide further revascularization for this gentleman. Despite all this he has been doing well until recently when he has had symptoms of worsening congestive heart failure and worsening renal renal insufficiency. He was in the hospital several weeks ago with volume overload and shortness of breath. He was diuresed and required some ionotropic support as well to affect a good diuresis. His renal function began to deteriorate with azotemia so we stopped the diuretic process and discharge him a couple of weeks ago. At the time of discharge he still had moderate bilateral lower extremity edema. The patient does not believe that has gotten any worse since the discharge. He is no longer complaining of any dyspnea he denies any symptoms of chest pain. His current cardiac medical regimen consists of aspirin, atorvastatin, carvedilol, clopidogrel, furosemide and Entresto. Over this past weekend prior to the onset of the back pain he also described 1-2 days of watery diarrhea. Review of Systems Constitutional: Constitutional: Reports lethargy Eyes: Eyes: Reports no add
[2021-12-28 11:42] LABS: Glucose Point of Care 122 mg/dl (65-105)
--- NOTE | 2021-12-28 13:40 | PM.IMPN ---
Progress Note: A&P Assessment and Plan (1) Chronic kidney disease, stage 4 (severe): Code(s): N18.4 - Chronic kidney disease, stage 4 (severe) Status: Acute Assessment and Plan: chronic kidney disease. kidney failure is only exacerbated by his diabetes, hypertension, vascular disease these, CHF with EF of 30%, and need for diuresis Renal ultrasound has showed small kidneys baseline creatinine is 2.2, his creatinine today is 3.1 elevated potassium level at admission, high side of normal at 5.0 today. Will recheck a BMP this afternoon. Not following renal diet at home He is not dehydrated, but fluid overloaded. CT scan did not show obstruction. Nephrology is checking urine electrolytes. (2) Volume overload: Code(s): E87.70 - Fluid overload, unspecified Status: Acute Assessment and Plan: Patient has fluid overload. combination of kidney disease and heart disease. His BNP is severely elevated, >75957, he has chronic elevated troponins due to his level of heart failure with an EF of only 30-35%, 3 troponins admission were all stable and unchanged. monitor how his kidneys respond to diuresis, may only tolerate slow diuresing. Appreciate the final operations technician consultation, recommendations, and treatments. avoid aggressive diuresis, but may not improve enough with low and slow diuresis kidney function is worsening and he may be nearing end-stage renal disease with dependence on dialysis paired with his HF severity Continue monitoring. (3) Acute hyperkalemia: Code(s): E87.5 - Hyperkalemia Status: Acute Assessment and Plan: potassium was also elevated to 6.0 admission. treated with 1 dose of IV Lasix, Bumex, and Kayexalate. Related to chronic kidney disease Not following renal diet at home but also not taking potassium supplement Improved to 5.0 today. Will recheck this afternoon. not dehydrated, but actually fluid overloaded. CT scan did not show ureter or renal obstruction. Appreciate consult and treatment by Nephrology. checking urine electrolytes. Continue monitoring (4) CHF (congestive heart failure): Code(s): I50.9 - Heart failure, unspecified Status: Acute Assessment and Plan: The patient has congestive heart failure with an EF of only 30-35%. AICD with permanent pacemaker in place Patient sees manager hi on a regular basis He was due in his manager hi office for AICD/ppm interrogation in November but he was in the hospital. So that was rescheduled for this week, and again he has been hospitalized. He will need to reschedule that appointment and follow-up with manager hi for AICD/ppm interrogation next week. His BNP is severely elevated, >74023, he has chronic elevated troponins due to his level of heart failure with an EF of only 30-35%, his 3 troponins admission were all stable and unchanged. Will have to monitor how his kidneys respond to diuresis, may only tolerate slow and low dose diuresing. Appreciate the Cardiology consultation who believes the patient is at this baseline and appears similar than when he was discharged 2 weeks ago. Daily weights, strict intake and output, Ham JOYA (5) Essential hypertension: Code(s): I10 - Essential (primary) hypertension Status: Chronic Assessment and Plan: His blood pressure is under good control Systolic 110s, diastolic 60-50s, heart rate 50s to 60s Ordered orthostatic vital signs daily (6) Chronic anemia: Code(s): D64.9 - Anemia, unspecified Status: Chronic Assessment and Plan: Hemoglobin is 10.7. No need for Epogen right now. Anemia is not symptomatic, no trouble with blood pressures are heart rate or low level of consciousness or lethargy Hematocrit 35.7 and platelets 151. Continued on aspirin and Plavix due to his severe heart failure, no active bleeding noted at this time, patient denies any blood in his urine or stools.
--- NOTE | 2021-12-28 14:11 | PM.PNNEP ---
Progress Note: A&P Assessment and Plan (1) Chronic kidney disease, stage 4 (severe): Code(s): N18.4 - Chronic kidney disease, stage 4 (severe) Status: Acute Assessment and Plan: Patient has chronic kidney disease. This is likely related to diabetes and hypertension. Vascular disease is also playing a role as he had bilateral stents years ago. His ultrasound has showed small kidneys. urine electrolytes are non pre renal urinalysis is bland His creatinine generally runs 2.5-2.7. Today it is 3.[address] scan did not show obstruction but it does show small echogenic kidneys. Perhaps this is just progression of kidney disease. He also could have an element of cardiorenal syndrome with his low ejection fraction. getting diuretics. Urine output was only 720 yesterday and 325 overnight. (2) Volume overload: Code(s): E87.70 - Fluid overload, unspecified Status: Acute Assessment and Plan: Patient has fluid overload. This is from a combination of kidney disease and heart disease. His creatinine is up and he has not even really made all that much urine yet. Will add metolazone to the mix. (3) Acute hyperkalemia: Code(s): E87.5 - Hyperkalemia Status: Acute Assessment and Plan: The potassium is Better, down to 5.0. (4) CHF (congestive heart failure): Code(s): I50.9 - Heart failure, unspecified Status: Acute Assessment and Plan: The patient has congestive heart failure with an EF of only 30-35%. (5) Essential hypertension: Code(s): I10 - Essential (primary) hypertension Status: Chronic Assessment and Plan: His blood pressure is under good control (6) Chronic anemia: Code(s): D64.9 - Anemia, unspecified Status: Chronic Assessment and Plan: Hemoglobin is 10.7. No need for Epogen right now. (7) Obstructive sleep apnea: Code(s): G47.33 - Obstructive sleep apnea (adult) (pediatric) Status: Acute Assessment and Plan: He wears oxygen at night. (8) Low back pain: Code(s): M54.50 - Low back pain, unspecified Status: Acute Assessment and Plan: This is now resolved Subjective Date/time seen: 12/28/21 14:11 Interval history: Patient is alert. He had diarrhea all night from the Kayexalate he received in the evening because his potassium did not go down. He has no chest pain or shortness of breath at rest, however has some shortness of breath with exertion. he is still swollen Review of Systems Cardiovascular: Cardiovascular: Reports no additional cardiovascular complaints Respiratory: Respiratory: Reports no additional respiratory complaints Gastrointestinal: Gastrointestinal: Reports no additional gastrointestinal complaints Genitourinary: Genitourinary: Reports no additional male genitourinary complaints Exam Narrative: WDWN in NAD skin no rash head ncat lungs Decreased breath sounds at bases cor reg no rub or gallop abd BS+ nontender and soft ext 2+ bilateral edema. Objective Data Vital Signs Vital Signs: Vital Signs - 24 hr 12/27/21 16:00 12/27/21 16:10 12/27/21 16:25 Temperature 36.3 C L Pulse Rate 57 L 65 Respiratory Rate 18 24 H Blood Pressure 119/43 L 122/65 117/60 Pulse Oximetry 98 98 12/27/21 19:55 12/27/21 20:00 12/27/21 20:04 Temperature 36.3 C L 36.3 C L Pulse Rate 74 80 74 Respiratory Rate 16 16 Blood Pressure 140/58 L 140/58 L Pulse Oximetry 97 97 12/27/21 20:17 12/27/21 20:18 12/27/21 21:27 Temperature Pulse Rate Respiratory Rate Blood Pressure 137/60 125/69 Pulse Oximetry 96 12/28/21 00:00 12/28/21 04:00 12/28/21 08:04 Temperature 36.5 C 36.5 C Pulse Rate 72 67 65 Respiratory Rate 16 16 Blood Pressure 131/53 L 124/59 L Pulse Oximetry 95 94 12/28/21 08:09 12/28/21 10:00 12/28/21 10:02 Temperature 36.3 C L Pulse Rate 71 86 Respiratory Rate 16 Blood
[2021-12-28 15:38] LABS: Anion Gap 5 mmol/L (8-16); Blood Urea Nitrogen 69 mg/dL (9-20); Calcium 8.9 mg/dL (8.4-10.2); Carbon Dioxide 28 mmol/L (22-30); Chloride 108 mmol/L (98-107); Estimated CRCL calculation 20 ml/min; Estimated Glomerular Filt Rate 20; Glucose 112 mg/dL (65-110); Potassium 4.9 mmol/L (3.4-5.0); Sodium 141 mmol/L (137-145)
[2021-12-28 16:44] LABS: Glucose Point of Care 111 mg/dl (65-105)
[2021-12-28] MEDS: CHOLECALCIFEROL 1,000 UNITS TABLET 5000 UNITS PO (20:08)
[2021-12-28 21:52] LABS: Glucose Point of Care 122 mg/dl (65-105)
[2021-12-29] VITALS (9 sets, daily range): BP systolic 123–148; BP diastolic 43–63; PULSE 58–86; RESP 17–18; TEMP 36.3–36.5; O2SAT 94–99
[2021-12-29 05:51] LABS: Hematocrit 34.6 % (42.0-52.0); Hemoglobin 10.3 g/dL (14.0-18.0); Mean Corpuscular HGB Conc 29.8 g/dl (32-36); Mean Corpuscular Hemoglobin 29.5 pg (26-34); Mean Corpuscular Volume 99.1 fl (80-100); Mean Platelet Volume 12.1 fl (7.4-10.4); Platelet Count Result 134 k/mm3 (150-375); Red Blood Count 3.49 M/mm3 (4.6-6.20); Red Cell Distribution Width 17.5 % (11.5-14.5); White Blood Count 6.3 K/mm3 (4.5-10.0)
[2021-12-29] MEDS: LEVOTHYROXINE SODIUM 50 MCG TABLET PO (05:53)
[2021-12-29 07:20] LABS: Alanine Aminotransferase 12 U/L (4-50); Albumin Level 3.6 g/dL (3.5-5.1); Alkaline Phosphatase 89 U/L (38-126); Anion Gap 9 mmol/L (8-16); Aspartate Amino Transferase 18 U/L (17-59); Bilirubin,Total 0.4 mg/dL (0.2-1.3); Blood Urea Nitrogen 69 mg/dL (9-20); Calcium 9.3 mg/dL (8.4-10.2); Carbon Dioxide 28 mmol/L (22-30); Chloride 108 mmol/L (98-107); Estimated CRCL calculation 19 ml/min; Estimated Glomerular Filt Rate 18; Glucose 96 mg/dL (65-110); Potassium 4.5 mmol/L (3.4-5.0); Sodium 145 mmol/L (137-145)
[2021-12-29 07:40] LABS: Hepatitis B Surface Antigen Negative (Negative)
[2021-12-29 07:46] LABS: HAV RESULT Negative (Negative); Hepatitis B Core IgM Result Negative (Negative)
[2021-12-29 07:49] LABS: Glucose Point of Care 116 mg/dl (65-105)
[2021-12-29 07:57] LABS: Hepatitis C Virus Antibody Negative (Negative)
[2021-12-29 08:28] LABS: NT Pro B Type Natriuretic Pept > 35000 pg/mL (5-100)
[2021-12-29] MEDS: ATORVASTATIN 40 MG TABLET 80 MG PO (08:48)
[2021-12-29] MEDS: ASPIRIN 81 MG ENTERIC TABLET PO (08:48)
[2021-12-29] MEDS: CLOPIDOGREL BISULFATE 75 MG TABLET PO (08:49)
[2021-12-29] MEDS: OPTI-GEN TAB 1 TABLET PO (08:49)
[2021-12-29] MEDS: PANTOPRAZOLE 40 MG TABLET PO (08:49)
[2021-12-29] MEDS: SACUBITRIL/VALSARTAN 49-51 MG TABLET 1 TABLET PO (08:49)
[2021-12-29] MEDS: metOLazone 5 MG TABLET PO (08:49)
[2021-12-29] MEDS: BUMETANIDE INJ 2.5 MG/10 ML VIAL 1 MG IV PUSH (08:50)
[2021-12-29] MEDS: ISOSORBIDE MONONITRATE 60 MG TAB.ER.24H PO (08:50)
[2021-12-29] MEDS: carvediloL 6.25 MG TABLET PO (08:50)
[2021-12-29] MEDS: LIDOCAINE 5% PATCH 3 PATCH TRANSDERM (08:51)
[2021-12-29] MEDS: INSULIN GLARGINE (*BKC) 100 UNITS/ML SUB-Q (09:20)
[2021-12-29 11:26] LABS: Glucose Point of Care 109 mg/dl (65-105)
--- NOTE | 2021-12-29 11:26 | PM.DS ---
DS: Admitting Diagnosis Discharge Date 12/29/21 Admitting Diagnosis Back pain DS: Discharge Diagnosis Discharge Diagnosis (1) Chronic kidney disease, stage 4 (severe): Code(s): N18.4 - Chronic kidney disease, stage 4 (severe) Status: Acute Assessment and Plan: The patient is a 76-year-old man with a history of CKD, CAD status post ID, AICD in place, diabetes, hypertension, hypothyroidism, who presented to the emergency room with a sudden back pain after he was getting up from using the restroom. He reported sharp pain to his bilateral lower back and he was given Tylenol in the emergency room and his pain resolved. He did have lots of swelling in his creatinine was elevated so he was admitted to the hospital for further evaluation and workup with his fluid overload and back pain. Initial vitals showed elevated blood pressure 142/99, heart rate normal at 72, increased respiratory rate 22, normal oxygen saturation 97% on room air. Normocytic anemia with a hemoglobin of 10, hematocrit 34%, thrombocytopenia 144,000, hyperkalemia at 6.0, elevated creatinine of 2.9, BUN 71. Normal LFTs. Elevated troponins but were flat and is always chronically elevated given congestive heart failure. BNP was elevated greater than 35,000. Normal cholesterol panel. Normal lipase. Normal urinalysis. CT abdomen pelvis showed moderate amount of ascites which could be related to cirrhosis with suggestion of subtle liver surface nodularity. Chest x-ray showed cardiomegaly with pulmonary vascular congestion. Patient was brought into the hospital for fluid overload and further evaluation with PT/OT with back pain. Nephrology was consulted given his elevation of creatinine and they started him on IV Bumex 1 mg q.12 for diuresis. He had good urine output with diuresis and then his creatinine began to slowly rise to 3.3. We switched his IV diuretics to oral. Fur Tailor evaluated while he was here and stated he look to have the same amount of edema he had when he was discharged 2 weeks ago. He was educated about low-salt diet, monitoring weights daily and following up with his software client architect as an outpatient. The jewelry model maker feels comfortable this time for him to be discharged home and he needs to follow-up with jewelry model maker Dr. Ureña. There was some concerns that he may need be needing dialysis in the future and they need to further discuss that as an outpatient. Patient understands agrees the plan all questions answered. Patient was also found to have moderate amount of ascites and possible nodularity to liver concerning for possible cirrhosis. I told him he needs a fall this primary care provider for further evaluation workup. I called down to ultrasound to see if we could do a paracentesis to help remove some fluid from his abdomen because he states it is very large and uncomfortable at times. Since he is on Plavix this will need to be held for 5 days prior to paracentesis. This can be scheduled as an outpatient by primary care provider if they feel it will benefit his symptoms. (2) Volume overload: Code(s): E87.70 - Fluid overload, unspecified Status: Acute (3) Acute hyperkalemia: Code(s): E87.5 - Hyperkalemia Status: Acute Assessment and Plan: Resolved (4) CHF (congestive heart failure): Code(s): I50.9 - Heart failure, unspecified Status: Acute (5) Essential hypertension: Code(s): I10 - Essential (primary) hypertension Status: Chronic Assessment and Plan: Blood pressure stable (6) Chronic anemia: Code(s): D64.9 - Anemia, unspecified Status: Chronic Assessment and Plan: Stable (7) Obstructive sleep apnea: Code(s): G47.33 - Obstructive sleep apnea (adult) (pediatric) Status: Acute Assessment and Plan: Stable (8) Low back pain: Code(s): M54.50 - Low back pain, unspecified Status: Acute Assessment
--- NOTE | 2021-12-29 11:30 | PC.NURSE ---
On 12/29/21, the student, [Harvey Garcia], provided care and completed [facility] documentation on this patient. I have reviewed the student's documentation and agree with the findings.
== END 2021-12-29 13:15 | disposition home or self-care (01) | DRG 291 ==
LOC: ANHED 12-27 00:18 → ANHCPC 12-27 00:32 → ANH2MED 12-27 17:32
PROVIDERS: Internal Medicine Nephrology; Nurse Practitioner; Physician Assistant; Admitting Provider Internal Medicine; Emergency Provider Emergency Medicine; PCP Family Medicine; Visit Provider Internal Medicine
DX: I13.0 Hypertensive heart and chronic kidney disease with heart failure and stage 1 through stage 4 chronic kidney disease, or unspecified chronic kidney disease (principal); I50.21 Acute systolic (congestive) heart failure; N18.4 Chronic kidney disease, stage 4 (severe); E11.22 Type 2 diabetes mellitus with diabetic chronic kidney disease; I50.9 Heart failure, unspecified; E03.9 Hypothyroidism, unspecified; E87.5 Hyperkalemia; D64.9 Anemia, unspecified; G47.33 Obstructive sleep apnea (adult) (pediatric); M54.50 Low back pain, unspecified; R19.7 Diarrhea, unspecified; K74.60 Unspecified cirrhosis of liver; J44.9 Chronic obstructive pulmonary disease, unspecified; M19.90 Unspecified osteoarthritis, unspecified site; I71.4 Abdominal aortic aneurysm, without rupture; I73.9 Peripheral vascular disease, unspecified; L40.9 Psoriasis, unspecified; Z95.810 Presence of automatic (implantable) cardiac defibrillator; I25.2 Old myocardial infarction; Z86.718 Personal history of other venous thrombosis and embolism; Z98.42 Cataract extraction status, left eye; Z98.41 Cataract extraction status, right eye; Z95.1 Presence of aortocoronary bypass graft; Z87.891 Personal history of nicotine dependence
CPT/HCPCS: 36415; 71045; 74176; 80048; 80053; 80061; 80069; 80074; 81001; 82274; 82570; 82948; 83036; 83690; 83735; 83880; 84100; 84132; 84156; 84300; 84484; 85025; 85027; 85610; 85730; 87045; 87177; 87209; 87269; 87272; 87427; 87493; 89055; 93005; 93970; 96361; 96365; 96375; 96376; 97161; 97165; 99285; A9270; G0378; J0131; J1815; J1940

== ENCOUNTER 2022-01-04 17:49 | Observation (INO) | payer MEDICARE, SELFPAY ==
[2022-01-04] VITALS (39 sets, daily range): BP systolic 128–194; BP diastolic 46–154; PULSE 64–81; RESP 13–27; TEMP 36.2; O2SAT 86–100
--- NOTE | ~2022-01-04 | XR_ITS ---
EXAMINATION: XR chest 1V portable EXAM DATE: 01/04/2022 22:33 INDICATION: Syncope X Today, Hx Chf, Hx Htn, No Chest Complaints TECHNIQUE: Portable AP frontal chest x-ray was obtained. There is no prior study for comparison. FINDINGS: There is single lead pacemaker/AICD device seen with tip projecting over the expected locat ion of right ventricle. Sternotomy wires are present without findings to suggest sternal dehiscence. There is at least moderate cardiomegaly. There is pulmonary vascular congestion. Small left pleural e ffusion. No confluent consolidation or pneumothorax. There are mild bony degenerative changes. There is no significant interval change. IMPRESSION: 1. Cardiomegaly, congestive changes. 2. Small left pleural effusion. Reviewed, dictated and finalized at location G. IER
--- NOTE | ~2022-01-04 | CT_ITS ---
EXAMINATION: CT brain wo [facility] EXAM DATE: 01/04/2022 19:00 INDICATION: Syncope . TECHNIQUE: Spiral CT of the head was performed without contrast. Axial, coronal and sagittal images were reviewed. The dose-length product (DLP) for this examination was 681.00 mGy-cm. The exposure w as tailored according to patient size, and iterative reconstruction (ASIR) was used as additional dos e reduction technique. There is no prior study for comparison. FINDINGS: There is no acute intraparenchymal hemorrhage. No evidence of intraparenchymal brain mass lesion. No evidence of acute infarction. Mild microangiopathy and cerebral atrophy. There is no mass effect or midline shift. The ventricles are normal in size. There are no extra-axial collections. There are no acute calvarial fractures. Patient has had bilateral ocular lens surgery. Soft tissue is unremarkable. The visualized sinuses and mastoid air cells are well aerated. IMPRESSION: 1. No acute intracranial findings. Reviewed, dictated and finalized at location G. RMATION TECHNOLOGY COORDINATOR
--- NOTE | ~2022-01-04 | CT_ITS ---
EXAMINATION: CT cervical spine wo con EXAM DATE: 01/04/2022 19:10 INDICATION: Head injury. On blood thinners. Syncope. TECHNIQUE: Spiral CT of the cervical spine was performed without contrast. Axial images were reviewe d. Coronal and sagittal reformatted images cervical spine were also reviewed. The dose-length produc t (DLP) for this examination was 181.27 mGy-cm. The exposure was tailored according to patient size (auto mA exposure control), and iterative reconstruction (ASIR) was used as additional dose reduction technique. There is no prior study for comparison. FINDINGS: There is a left pleural effusion. There is no evidence of acute cervical fracture. The odo ntoid process is intact. Pre-dens space is normal. Prevertebral soft tissue is normal. There are n o soft tissue abnormalities identified. There is no disc space widening or traumatic vertebral body subluxation suspected. Moderate cervical spondylosis. A detailed level by level evaluation of spond ylosis can be added as addendum if requested. IMPRESSION: 1. No acute cervical fracture. 2. Moderate cervical spondylosis. 3. Left pleural effusion. Reviewed, dictated and finalized at location G. R PHOTOVOLTAIC ELECTRICIAN
--- NOTE | 2022-01-04 17:54 | ECG_ITS ---
Measurements Intervals [place] Rate: 77 P: 16 GA: 147 QRS: 20 QRSD: 123 T: 183 QT: 395 QTc: 447 Interpretive Statements SINUS RHYTHM VENTRICULAR PREMATURE COMPLEX LEFT BUNDLE BRANCH BLOCK BASELINE ARTIFACT- I, II, AVR ABNORMAL ECG Electronically Signed On 01-05-2022 7:32:06 BUHR DRESSER by Leon Mckeon D.O.
[2022-01-04 18:22] LABS: Basophils Percent Auto 0.5 % (0.2-1.2); Eosinophils Absolute Auto 0.3 K/mm3 (0-0.3); Eosinophils Percent Auto 4.2 % (0-4.4); Hematocrit 39.1 % (42.0-52.0); Hemoglobin 11.7 g/dL (14.0-18.0); Immature Granulocyte Absolute 0.02 K/mm3 (0.00-0.031); Immature Granulocyte Percent A 0.3 % (0-0.5); Lymphocytes Absolute Auto 1.03 K/mm3 (0.9-3.2); Lymphocytes Percent Auto 13.9 % (18.3-44.2); Mean Corpuscular HGB Conc 29.9 g/dl (32-36); Mean Corpuscular Hemoglobin 29.7 pg (26-34); Mean Corpuscular Volume 99.2 fl (80-100); Mean Platelet Volume 12.4 fl (7.4-10.4); Monocytes Absolute Auto 0.6 K/mm3 (0.1-0.6); Monocytes Percent Auto 8.5 % (2.6-8.5); Neutrophils Absolute Auto 5.4 K/mm3 (1.3-6.7); Neutrophils Percent Auto 72.6 % (45.5-73.1); Platelet Count Result 140 k/mm3 (150-375); Red Blood Count 3.94 M/mm3 (4.6-6.20); Red Cell Distribution Width 17.5 % (11.5-14.5); White Blood Count 7.4 K/mm3 (4.5-10.0)
[2022-01-04 18:47] LABS: Hypochromasia 1+ (NORMAL)
[2022-01-04 18:48] LABS: Anisocytosis 2+ (NORMAL)
--- NOTE | 2022-01-04 18:53 | ED.SYNCOPE ---
HPI - Syncope General Chief Complaint: Syncope Stated Complaint: syncopal Time Seen by Provider: 01/04/22 18:31 Source: patient Limitations: no limitations History of Present Illness HPI narrative: Patient is a 76-year-old male complaining of syncopal episode that happened prior to arrival. Patient states that he was sitting down watching TV when he suddenly got up and that is when he passed out. Patient was able to stand up after the fall with the help of his daughter. Patient states that he was asymptomatic prior to the episode. Patient states that he has had similar episodes in the past due to dehydration or when he suddenly gets up. Patient currently denies any symptoms. Patient states I feel fine . Patient denies any speech or visual disturbance, focal weakness or numbness, unsteady gait, chest pain, shortness of breath, abdominal pain, nausea, vomiting, fever or chills. Related Data Home Medications Medication Instructions Recorded Confirmed atorvastatin 80 mg tablet 80 mg PO DAILY 09/23/19 12/27/21 Entresto 1 tablet PO Q12H 01/08/20 12/27/21 PreserVision AREDS-2 1 cap PO Q12H 10/20/20 12/27/21 aspirin 81 mg tablet,delayed 81 mg PO DAILY 01/19/21 12/27/21 release furosemide 40 mg tablet 40 mg PO Q12H tablet 01/19/21 12/27/21 Basaglar KwikPen U-100 Insulin 5 unit SUBCUT QAM 08/02/21 12/27/21 cholecalciferol (vitamin D3) 125 mcg PO HS 08/02/21 12/27/21 isosorbide mononitrate 60 mg PO DAILY 08/02/21 12/27/21 Allergies Allergy/AdvReac Type Severity Reaction Status Date / Time Penicillins Allergy Severe unknown Verified 01/04/22 17:53 Review of Systems Review of Systems: All systems reviewed & are unremarkable except as noted in HPI and below Constitutional: Constitutional: Denies body ache(s), Denies chills, Denies excessive sweating, Denies fatigue, Denies fever(s), Denies headache(s), Denies lethargy, Denies malaise, Denies weakness and Denies weight loss Eyes: Eyes: Denies blurry vision, Denies change in vision and Denies loss of vision ENT: Denies dizziness, Denies ear discharge, Denies headache(s), Denies lip swelling, Denies epistaxis, Denies nasal congestion, Denies neck pain, Denies throat swelling and Denies tongue swelling Cardiovascular: Cardiovascular: Denies chest pain, Denies chest pain at rest, Denies chest pain with activity, Denies diaphoresis, Denies rapid heart rate, Denies edema, Denies irregular heart rhythm, Denies lightheadedness, Denies palpitations, Denies dyspnea and Denies dyspnea on exertion Respiratory: Respiratory: Denies chest congestion, Denies cough, Denies hemoptysis, Denies dyspnea and Denies dyspnea on exertion Gastrointestinal: Gastrointestinal: Denies abdominal pain, Denies melena, Denies hematochezia, Denies diarrhea, Denies nausea, Denies vomiting and Denies hematemesis Musculoskeletal: Musculoskeletal: Denies abnormal gait, Denies deformity, Denies joint swelling, Denies limited range of motion, Denies neck pain and Denies numbness Neurologic: Denies Abnormal speech present, Denies abnormal gait, Denies confusion, Denies dizziness, Denies headache(s), Denies focal weakness, Denies loss of vision, Denies numbness, Denies Other visual disturbances, Denies Sensory deficit (Neuro) and Denies weakness Psychiatric: Psychiatric: Denies confusion, Denies depression, Denies auditory hallucinations, Denies homicidal ideation and Denies suicidal ideation Endocrine: Endocrine: Denies cold intolerance, Denies excessive sweating, Denies fatigue, Denies heat intolerance and Denies palpitations Hematologic/Lymphatic: Hematologic/Lymphatic: Denies easy bleeding and Denies easy bruising Allergic/Immunologic: Allergic/Immunologic: Denies lip swelling, Denies throat swelling and Denies tongue swelling PMFSH Past Medical History Medical History Abdominal aortic aneurysm Arthritis Ascites Carotid stenosis, bilateral Carpal tunnel syndrome Ch
[2022-01-04 19:08] LABS: Alanine Aminotransferase 13 U/L (4-50); Albumin Level 4.4 g/dL (3.5-5.1); Alkaline Phosphatase 95 U/L (38-126); Anion Gap 11 mmol/L (8-16); Aspartate Amino Transferase 21 U/L (17-59); Bilirubin,Total 0.5 mg/dL (0.2-1.3); Blood Urea Nitrogen 72 mg/dL (9-20); Calcium 9.5 mg/dL (8.4-10.2); Carbon Dioxide 29 mmol/L (22-30); Chloride 100 mmol/L (98-107); Estimated CRCL calculation 19 ml/min; Estimated Glomerular Filt Rate 22; Glucose 133 mg/dL (65-110); Potassium 5.3 mmol/L (3.4-5.0); Sodium 140 mmol/L (137-145)
[2022-01-04 22:13] LABS: SARS-CoV-2 RNA PCR Negative
--- NOTE | 2022-01-04 22:19 | PM.IMHP ---
H&P: HPI History of Present Illness Date/Time: 01/04/22 22:19 Chief Complaint: Syncopal episode Narrative: 76 years old male with past medical history of systolic CHF ejection fraction 35% status post AICD on Entresto and Lasix history of chronic renal failure probable history of liver cirrhosis with ascites presented to the hospital with syncopal episode patient was watching TV tried to stand up had a syncopal episode patient also complained of lower extremity swelling patient denies chest pain fever or chills at the ER patient was found to have mild hyperkalemia probable CHF exacerbation admitted for further evaluation and treatment patient wound was recently treated in the hospital for CHF fluid overload ascites and renal failure Review of Systems Review of Systems: All systems reviewed & are unremarkable except as noted in HPI and below PMFSH Past Medical History Medical History Abdominal aortic aneurysm Arthritis Ascites Carotid stenosis, bilateral Carpal tunnel syndrome Chronic anemia Chronic kidney disease, stage 4 (severe) COPD (chronic obstructive pulmonary disease) Deep venous thrombosis Essential hypertension Gastroesophageal reflux disease Heart failure with reduced ejection fraction Echo in 07/2021: 1. Technically difficult study with limited views. 2. Moderately reduced LF function with an EF estimated at 30-35% with hypokinesis of the mid to basal anterolateral, inferior, anterior, and basal inferoseptal arroyo with relative sparing of the apex. 3. Mildly increased LV wall thickness. 4. Left atria is moderately enlarged. 5. Mild tricuspid valve regurgitation. 6. Severe pulmonary hypertension with an estimated pulmonary arterial systolic pressure of 65 mmHg. Hypothyroidism Insulin dependent type 2 diabetes mellitus Mixed hyperlipidemia Obstructive sleep apnea Intolerant to CPAP. Wears oxygen at nighttime. Pancreatitis Peripheral vascular disease Psoriasis Umbilical hernia without obstruction and without gangrene Volume overload Surgical History Surgical History H/O abdominal surgery Revascularization to renal arteries and mesenteric artery H/O fasciotomy Right leg History of cataract extraction History of embolectomy Right leg History of stent insertion of renal artery History of tonsillectomy Hx of CABG Initially 5 vessel CABG and later on he had 1 that was redone now for those vessels are occluded he has collateral only 1 vessel is pain Hx of cardiac catheterization Multiple times Presence of combination internal cardiac defibrillator (ICD) and pacemaker S/P carotid endarterectomy Family History Family History Mother Hypertension Family history of coronary artery disease Father Acute myocardial infarction Family history of coronary artery disease Sibling Heart disease Hyperlipidemia Social History Social History Social History: Surrogate decision maker: Nephew. Code status: Full code. Smoking packs per day: 1.5 Smoking cigarettes per day: 30.0 Years smoked: 25 Smoking pack-years: 37.50 Smoking status: Former smoker Second hand tobacco smoke exposure: Yes Alcohol intake: never Substance use: never Substance use type: does not use Additional living arrangements comments: Lives in his own home in [place]. No children. 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 Spiritual care concerns: No Meds Home Medications and Allergies Home Medications Medication Instructions Recorded Confirmed Type atorvastatin 80 mg tablet 80 mg PO DAILY 09/23/19 12/27/21 History Entresto 1 tablet PO Q12H 01/08/20 12/27/21 History PreserVision AREDS-2 1 cap PO Q12H 10/20/20 12/27/21 History aspi
[2022-01-04] MEDS: FUROSEMIDE INJ 40 MG/4 ML VIAL 20 MG IV PUSH (22:25)
[2022-01-04] MEDS: carvediloL 6.25 MG TABLET PO (23:03)
[2022-01-04] MEDS: CHOLECALCIFEROL 1,000 UNITS TABLET 5000 UNITS PO (23:04)
[2022-01-04] MEDS: SACUBITRIL/VALSARTAN 49-51 MG TABLET 1 TABLET PO (23:04)
[2022-01-05] VITALS (46 sets, daily range): BP systolic 120–156; BP diastolic 51–121; PULSE 68–85; RESP 13–28; TEMP 36.3–37.1; O2SAT 84–100
--- NOTE | 2022-01-05 01:30 | ADMGEN ---
This patient, Jaime Morrell, was admitted to Virtual Bed 3rd Floor-2. Patient/family oriented to hospital policies and general routines including ID bracelet, bed and alarms, visiting hours, pain management, procedures, bathroom and other care routines, personal items, smoking policy, room service/diet, and visiting hours. Information on how to activate the Rapid Response Team has been discussed. Patient/Family are encouraged to report perceived risks to care and to ask questions if they do not understand what they are told or what they should do.
[2022-01-05 05:27] LABS: Basophils Percent Auto 0.5 % (0.2-1.2); Eosinophils Absolute Auto 0.3 K/mm3 (0-0.3); Eosinophils Percent Auto 3.5 % (0-4.4); Hematocrit 35.5 % (42.0-52.0); Hemoglobin 11.1 g/dL (14.0-18.0); Immature Granulocyte Absolute 0.02 K/mm3 (0.00-0.031); Immature Granulocyte Percent A 0.3 % (0-0.5); Lymphocytes Absolute Auto 1.15 K/mm3 (0.9-3.2); Lymphocytes Percent Auto 15.6 % (18.3-44.2); Mean Corpuscular HGB Conc 31.3 g/dl (32-36); Mean Corpuscular Hemoglobin 29.6 pg (26-34); Mean Corpuscular Volume 94.7 fl (80-100); Monocytes Absolute Auto 0.8 K/mm3 (0.1-0.6); Monocytes Percent Auto 10.3 % (2.6-8.5); Neutrophils Absolute Auto 5.1 K/mm3 (1.3-6.7); Neutrophils Percent Auto 69.8 % (45.5-73.1); Platelet Count Result 131 k/mm3 (150-375); Red Blood Count 3.75 M/mm3 (4.6-6.20); Red Cell Distribution Width 17.4 % (11.5-14.5); White Blood Count 7.4 K/mm3 (4.5-10.0)
[2022-01-05 05:40] LABS: Alanine Aminotransferase 13 U/L (4-50); Albumin Level 4.2 g/dL (3.5-5.1); Alkaline Phosphatase 101 U/L (38-126); Anion Gap 10 mmol/L (8-16); Aspartate Amino Transferase 24 U/L (17-59); Bilirubin,Total 0.5 mg/dL (0.2-1.3); Blood Urea Nitrogen 73 mg/dL (9-20); Calcium 9.4 mg/dL (8.4-10.2); Carbon Dioxide 28 mmol/L (22-30); Chloride 102 mmol/L (98-107); Estimated CRCL calculation 19 ml/min; Estimated Glomerular Filt Rate 21; Glucose 102 mg/dL (65-110); Potassium 5.2 mmol/L (3.4-5.0); Sodium 140 mmol/L (137-145)
[2022-01-05] MEDS: LEVOTHYROXINE SODIUM 50 MCG TABLET PO (06:57)
[2022-01-05] MEDS: ALBUMIN HUMAN 25% 25 GM/100 ML 100 ML IVPB ×2 (09:29→18:27)
[2022-01-05] MEDS: ATORVASTATIN 40 MG TABLET 80 MG PO (09:32)
[2022-01-05] MEDS: ASPIRIN 81 MG ENTERIC TABLET PO (09:32)
[2022-01-05] MEDS: CLOPIDOGREL BISULFATE 75 MG TABLET PO (09:32)
[2022-01-05] MEDS: OPTI-GEN TAB 1 TABLET PO ×2 (09:33→21:17)
[2022-01-05] MEDS: SACUBITRIL/VALSARTAN 49-51 MG TABLET 1 TABLET PO (09:33)
[2022-01-05] MEDS: carvediloL 6.25 MG TABLET PO ×2 (09:34→21:18)
[2022-01-05] MEDS: FUROSEMIDE INJ 40 MG/4 ML VIAL IV PUSH ×2 (09:36→18:27)
[2022-01-05] MEDS: INSULIN GLARGINE (*BKC) 100 UNITS/ML SUB-Q (09:41)
[2022-01-05] MEDS: ISOSORBIDE MONONITRATE 60 MG TAB.ER.24H PO (09:42)
--- NOTE | 2022-01-05 10:33 | PM.CNCAR ---
Assessment and Plan Additional Plan -vasovagal syncope -ischemic cardiomyopathy stable, no evidence of exacerbation -hyperkalemia -CKD stage IV -possible liver cirrhosis This 76-year-old patient with history of end-stage ischemic cardiomyopathy with 1 graft supplying the LAD who was at home stood up and then passed out. Blood work shows some hyperkalemia. His heart failure appears to be at baseline. -recommend to check orthostatic vital signs -reduce Entresto from 49-51 mg b.i.d. to 24-26 mg b.i.d. to avoid hyperkalemia. -teaching Done to the patient regarding standing up slowly. -hopefully cutting down on the Entresto will help avoid vasovagal syncope History of Present Illness History of Present Illness Consult date/time: Date of service 01/05/22 10:33 Requesting physician: Mishel Cota M.A., MD Consult reason: congestive heart failure Reason For Visit: hyperkalemia, CHF exacerbation, hypertensive urgen Narrative: This 76-year-old patient who follows up with Dr. Richmond and with past medical history of end-stage ischemic heart disease with 1 remaining graft supplying LAD. Also history of chronic kidney disease and possible liver cirrhosis. Patient states that he was sitting down watching TV when he suddenly got up and that is when he passed out. Patient was able to stand up after the fall with the help of his daughter. Patient states that he was asymptomatic prior to the episode. Patient states that he has had similar episodes in the past due to dehydration or when he suddenly gets up. Denies chest pain. His breathing is at baseline. Has mild lower extremity edema but he said it improved compared to before. Denies palpitations Chest x-ray reviewed and asthma social cardiomegaly and vascular congestion. Creatinine 2.9 Review of Systems Constitutional: Constitutional: Denies chills, Denies fever(s) and Denies poor appetite Eyes: Eyes: Denies eye discharge, Denies loss of vision, Denies eye pain and Denies photophobia ENT: Denies dizziness, Denies epistaxis, Denies nasal congestion and Denies sore throat Cardiovascular: Cardiovascular: Denies chest pain, Reports syncope, Denies pedal edema, Reports leg edema, Denies palpitations, Reports dyspnea, Reports dyspnea on exertion and Denies orthopnea Respiratory: Respiratory: Denies cough, Reports dyspnea, Reports dyspnea on exertion and Denies wheezing Gastrointestinal: Gastrointestinal: Denies abdominal pain, Denies diarrhea, Denies nausea and Denies vomiting Genitourinary: Genitourinary: Denies hematuria, Denies genital lesions and Denies dysuria Musculoskeletal: Musculoskeletal: Denies arthralgias, Denies joint swelling and Denies numbness Integumentary/Breasts: Skin/Breast: Denies pruritus and Denies rash Neurologic: Denies dizziness, Denies syncope, Denies loss of vision and Denies numbness Psychiatric: Psychiatric: Denies anxiety and Denies depression Endocrine: Endocrine: Denies cold intolerance, Denies heat intolerance and Denies palpitations Hematologic/Lymphatic: Hematologic/Lymphatic: Denies easy bleeding and Denies easy bruising Allergic/Immunologic: Allergic/Immunologic: Denies urticaria and Denies wheezing PMFSH Past Medical History Medical History Abdominal aortic aneurysm Arthritis Ascites Carotid stenosis, bilateral Carpal tunnel syndrome Chronic anemia Chronic kidney disease, stage 4 (severe) COPD (chronic obstructive pulmonary disease) Deep venous thrombosis Essential hypertension Gastroesophageal reflux disease Heart failure with reduced ejection fraction Echo in 07/2021: 1. Technically difficult study with limited views. 2. Moderately reduced LF function with an EF estimated at 30-35% with hypokinesis of the mid to basal anterolateral, inferior, anterior, and basal inferoseptal arroyo with relative sparing of the apex. 3. Mildly increased LV wall thickness. 4. Left atria is moder
--- NOTE | 2022-01-05 11:34 | PM.IMPN ---
Progress Note: A&P Assessment and Plan (1) Syncope: Qualifiers: Syncope type: vasovagal syncope Qualified Code(s): R55 - Syncope and collapse Code(s): R55 - Syncope and collapse Status: Acute Assessment and Plan: Probable vasovagal versus orthostatic. He does have symptoms with lightheadedness when he stands. Orhtostatic BP were okay. Adjsut medications. PT/OT. AICD interrogation. (2) Acute hyperkalemia: Code(s): E87.5 - Hyperkalemia Status: Acute Assessment and Plan: Potassium 5.3 on admission. he has had problems with this in the past. Spironolactone stopped. Entresto held but starting back at lower dose if potassium improves. Add low-potassium diet. (3) Acute on chronic systolic (congestive) heart failure: Code(s): I50.23 - Acute on chronic systolic (congestive) heart failure Status: Acute Assessment and Plan: Echo in November showing EF 30-35% with grade II diastolic dysfunction and severe pulmonary HTN. CXR here showing small left-sided pleural effusion and congestive changes. 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 unable to perform paracentesis since he is still on Plavix (see previous note). Albumin given. He has been started on IV Lasix. Will reassess in the morning. 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 The patient's blood glucose was reviewed on 01/05 Glucose remains well controlled. Continue AccuCheks covering with sliding scale. Hypoglycemia protocol available as needed. 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 Continue medical management with Aspirin, Plavix, Imdur, Coreg, Lipitor. (6) Essential hypertension: Code(s): I10 - Essential (primary) hypertension Status: Chronic Assessment and Plan: Patient's blood pressure was reviewed on 01/05 Blood pressure remains well controlled. Will continue current medications. (7) Chronic kidney disease, stage 4 (severe): Code(s): N18.4 - Chronic kidney disease, stage 4 (severe) Status: Acute Assessment and Plan: Cr 2.8 with BUN 73 on admission and at baseline. Repeat values unchanged today. Follow closely (8) Sleep apnea, unspecified: Onset Date: 12/29/15 Code(s): G47.30 - Sleep apnea, unspecified Status: Chronic Assessment and Plan: Stable. Continue home treatment. (9) Carotid stenosis, bilateral: Code(s): I65.23 - Occlusion and stenosis of bilateral carotid arteries Status: Acute Assessment and Plan: Hx of carotid stenosis. Continue Aspirin, Plavix and Lipitor. (10) DVT prophylaxis: Code(s): Z29.9 - Encounter for prophylactic measures, unspecified Status: Acute Assessment and Plan: Asymmetric edema but doppler last week negative. heparin for now Subjective Date/time seen: 01/05/22 11:34 Interval history: 76yo male with with CHF, AICD/PM, DM, TITA, COPD and CKD here for syncope. patient is feeling great today. Patient has been having some mild lightheadedness when he sits up from the lying position. He waits for this to pass before he stands. Patient stood up from a chair and had immediate loss of consciousness promting this admission. He has no memory of the event. He did sustain a left cheek abrasion. He also complains that his right side of his neck is stiff. Patient was recently discharged from this facility on December 29. He was hospitalized at that time for back pain and found to have volume overload and evidence of possible cirrhosis. He has chron
--- NOTE | 2022-01-05 12:23 | ADMGEN ---
This patient, Jaime Morrell, was admitted to [facility]. Patient/family oriented to hospital policies and general routines including ID bracelet, bed and alarms, visiting hours, pain management, procedures, bathroom and other care routines, personal items, smoking policy, room service/diet, and visiting hours. Information on how to activate the Rapid Response Team has been discussed. Patient/Family are encouraged to report perceived risks to care and to ask questions if they do not understand what they are told or what they should do.
[2022-01-05 12:30] LABS: Glucose Point of Care 110 mg/dl (65-105)
[2022-01-05] MEDS: CHOLECALCIFEROL 1,000 UNITS TABLET 5000 UNITS PO (21:17)
[2022-01-05] MEDS: HEPARIN SODIUM 5,000 UNITS/ML VIAL 5000 UNITS SUB-Q (21:17)
[2022-01-06] VITALS (8 sets, daily range): BP systolic 107–139; BP diastolic 51–99; PULSE 58–69; RESP 19–20; TEMP 35.7–36.6; O2SAT 97–100
[2022-01-06 05:48] LABS: Basophils Percent Auto 0.6 % (0.2-1.2); Eosinophils Absolute Auto 0.2 K/mm3 (0-0.3); Eosinophils Percent Auto 4.3 % (0-4.4); Hematocrit 30.8 % (42.0-52.0); Hemoglobin 9.6 g/dL (14.0-18.0); Immature Granulocyte Absolute 0.01 K/mm3 (0.00-0.031); Immature Granulocyte Percent A 0.2 % (0-0.5); Lymphocytes Absolute Auto 0.92 K/mm3 (0.9-3.2); Mean Corpuscular HGB Conc 31.2 g/dl (32-36); Mean Corpuscular Hemoglobin 30.4 pg (26-34); Mean Corpuscular Volume 97.5 fl (80-100); Mean Platelet Volume 12.5 fl (7.4-10.4); Monocytes Absolute Auto 0.6 K/mm3 (0.1-0.6); Monocytes Percent Auto 10.8 % (2.6-8.5); Neutrophils Absolute Auto 3.4 K/mm3 (1.3-6.7); Neutrophils Percent Auto 66.1 % (45.5-73.1); Platelet Count Result 108 k/mm3 (150-375); Red Blood Count 3.16 M/mm3 (4.6-6.20); Red Cell Distribution Width 17.4 % (11.5-14.5); White Blood Count 5.1 K/mm3 (4.5-10.0)
[2022-01-06 06:06] LABS: Alanine Aminotransferase 10 U/L (4-50); Albumin Level 3.7 g/dL (3.5-5.1); Alkaline Phosphatase 74 U/L (38-126); Anion Gap 8 mmol/L (8-16); Aspartate Amino Transferase 16 U/L (17-59); Bilirubin,Total 0.5 mg/dL (0.2-1.3); Blood Urea Nitrogen 73 mg/dL (9-20); Carbon Dioxide 27 mmol/L (22-30); Chloride 104 mmol/L (98-107); Estimated CRCL calculation 19 ml/min; Estimated Glomerular Filt Rate 22; Glucose 99 mg/dL (65-110); Magnesium 2.2 mg/dL (1.6-2.3); Phosphorus 4.2 mg/dL (2.5-4.5); Potassium 4.7 mmol/L (3.4-5.0); Sodium 139 mmol/L (137-145)
[2022-01-06] MEDS: LEVOTHYROXINE SODIUM 50 MCG TABLET PO (06:37)
[2022-01-06 07:08] LABS: Folic Acid 6.7 ng/mL (2.76->20)
[2022-01-06] MEDS: carvediloL 6.25 MG TABLET PO ×2 (08:48→21:18)
[2022-01-06] MEDS: CLOPIDOGREL BISULFATE 75 MG TABLET PO (08:49)
[2022-01-06] MEDS: ISOSORBIDE MONONITRATE 60 MG TAB.ER.24H PO (08:49)
[2022-01-06] MEDS: ASPIRIN 81 MG ENTERIC TABLET PO (08:49)
[2022-01-06] MEDS: OPTI-GEN TAB 1 TABLET PO ×2 (08:49→21:17)
[2022-01-06] MEDS: ATORVASTATIN 40 MG TABLET 80 MG PO (08:49)
[2022-01-06] MEDS: FUROSEMIDE INJ 40 MG/4 ML VIAL IV PUSH ×2 (08:50→17:10)
[2022-01-06] MEDS: HEPARIN SODIUM 5,000 UNITS/ML VIAL 5000 UNITS SUB-Q (08:50)
[2022-01-06] MEDS: INSULIN GLARGINE (*BKC) 100 UNITS/ML SUB-Q (08:57)
--- NOTE | 2022-01-06 08:58 | PM.PNCARD ---
Progress Note: A&P Assessment and Plan (1) Syncope: Qualifiers: Syncope type: vasovagal syncope Qualified Code(s): R55 - Syncope and collapse Code(s): R55 - Syncope and collapse Status: Acute Assessment and Plan: Likely vasovagal syncope. Pacemaker interrogation in our office on the day he experienced a syncopal episode showed normal functioning. Avoid dehydration. Check orthostatics. (2) Acute hyperkalemia: Code(s): E87.5 - Hyperkalemia Status: Acute Assessment and Plan: Entresto has been decreased and spironolactone held. Potassium within normal limits today. (3) CHF (congestive heart failure): Qualifiers: Heart failure chronicity: chronic Heart failure type: unspecified Qualified Code(s): I50.9 - Heart failure, unspecified Code(s): I50.9 - Heart failure, unspecified Status: Acute Assessment and Plan: Currently does not have any evidence of acute CHF. He appears to be at his baseline. Continue current diuretic regimen. Subjective Date/time seen: 01/06/22 08:58 cardiology follow-up for CHF Patient feels well today. No complaints. He has not had any dizziness or syncope since his admission. Denies any chest pain, palpitations, shortness of breath. Review of Systems Constitutional: Constitutional: Denies chills, Denies fever(s) and Denies poor appetite Eyes: Eyes: Denies eye discharge, Denies loss of vision, Denies eye pain and Denies photophobia ENT: Denies dizziness, Denies epistaxis, Denies nasal congestion and Denies sore throat Cardiovascular: Cardiovascular: Denies chest pain, Reports syncope, Denies pedal edema, Reports leg edema, Denies palpitations, Reports dyspnea, Reports dyspnea on exertion and Denies orthopnea Respiratory: Respiratory: Denies cough, Reports dyspnea, Reports dyspnea on exertion and Denies wheezing Gastrointestinal: Gastrointestinal: Denies abdominal pain, Denies diarrhea, Denies nausea and Denies vomiting Genitourinary: Genitourinary: Denies hematuria, Denies genital lesions and Denies dysuria Musculoskeletal: Musculoskeletal: Denies arthralgias, Denies joint swelling and Denies numbness Integumentary/Breasts: Skin/Breast: Denies pruritus and Denies rash Neurologic: Denies dizziness, Reports syncope, Denies loss of vision and Denies numbness Psychiatric: Psychiatric: Denies anxiety and Denies depression Endocrine: Endocrine: Denies cold intolerance, Denies heat intolerance and Denies palpitations Hematologic/Lymphatic: Hematologic/Lymphatic: Denies easy bleeding and Denies easy bruising Allergic/Immunologic: Allergic/Immunologic: Denies urticaria and Denies wheezing Exam Const: General: cooperative, comfortable, no acute distress, alert and awake Nutritional Appearance: well nourished Orientation/consciousness: patient oriented x3 HENMT: Head: normal to inspection, normocephalic and atraumatic Ears: hearing grossly normal bilaterally General nose exam: Normal external nose present, Normal nares present and no nasal discharge noted Face and sinus: normal facial exam and no erythema Mouth: No drooling and No restricted motion Throat: uvula midline Eyes: General: appearance normal, both eyes and all related structures Alignment and Position: position normal Conjunctivae: conjunctivae normal Sclera: sclerae normal Direct Ophthalmoscopy: No photophobia Neck: Neck: normal visual inspection and no JVD Thyroid: thyroid normal Carotids: no bruits Lymphatic: lymphedema not noted Chest: Chest palpation & inspection: normal inspection of the chest and no tenderness Resp: Effort & Inspection: normal respiratory effort and no nasal flaring Auscultation: clear to auscultation bilaterally, no crackles, no rales and no wheezes Cardio: Jugular venous distension: no JVD Rate: regular rate Rhythm: regular rhythm Heart sounds: S1 normal heart sound present, S2 normal heart sound present, no gallops, no
[2022-01-06 09:05] LABS: Glucose Point of Care 87 mg/dl (65-105)
--- NOTE | 2022-01-06 13:50 | PM.IMPN ---
Progress Note: A&P Assessment and Plan (1) Syncope: Qualifiers: Syncope type: vasovagal syncope Qualified Code(s): R55 - Syncope and collapse Code(s): R55 - Syncope and collapse Status: Acute Assessment and Plan: Probable vasovagal versus orthostatic. He does have symptoms with lightheadedness when he stands. Orthostatic BP were okay. Adjust medications. Continue PT/OT. AICD interrogation. (2) Acute hyperkalemia: Code(s): E87.5 - Hyperkalemia Status: Acute Assessment and Plan: Potassium 5.3 on admission. He has had problems with this in the past. Spironolactone stopped. Entresto held. Potassium better so will resume Entresto at lower dose. Continue low-potassium diet. (3) Acute on chronic systolic (congestive) heart failure: Code(s): I50.23 - Acute on chronic systolic (congestive) heart failure Status: Acute Assessment and Plan: Echo in November showing EF 30-35% with grade II diastolic dysfunction and severe pulmonary HTN. CXR here showing small left-sided pleural effusion and congestive changes. 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 unable to perform paracentesis since he is still on Plavix (see previous note). Albumin given. He has been started on IV Lasix with reasonably good response. (4) Insulin dependent type 2 diabetes mellitus: Code(s): E11.9 - Type 2 diabetes mellitus without complications; Z79.4 - skilled nursing (current) use of insulin Status: Acute Assessment and Plan: A1c 6.0 last week. The patient's blood glucose was reviewed on 01/06 Glucose remains well controlled. Continue AccuCheks covering with sliding scale. Hypoglycemia protocol available as needed. 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 Continue medical management with Aspirin, Plavix, Imdur, Coreg, Lipitor. (6) Essential hypertension: Code(s): I10 - Essential (primary) hypertension Status: Chronic Assessment and Plan: Patient's blood pressure was reviewed on 01/06 Blood pressure remains well controlled. Will continue current medications. Add back lower dose Entresto. Will decrease Imdur as well (7) Chronic kidney disease, stage 4 (severe): Code(s): N18.4 - Chronic kidney disease, stage 4 (severe) Status: Acute Assessment and Plan: Cr 2.8 with BUN 73 on admission and at baseline. Repeat values unchanged today. Follow closely (8) Sleep apnea, unspecified: Onset Date: 12/29/15 Code(s): G47.30 - Sleep apnea, unspecified Status: Chronic Assessment and Plan: NIV ordered but not used. Patient is intolerant to NIV. Continue to use O2 at night. (9) Carotid stenosis, bilateral: Code(s): I65.23 - Occlusion and stenosis of bilateral carotid arteries Status: Acute Assessment and Plan: Hx of carotid stenosis. Continue Aspirin, Plavix and Lipitor. (10) DVT prophylaxis: Code(s): Z29.9 - Encounter for prophylactic measures, unspecified Status: Acute Assessment and Plan: SCDs Additional Plan Thrombocytopenia -platelet count mildly low at times but has dropped to 108 K. B12 low end of normal. Will check MMA. Stop heparin. Possible cirrhosis -some liver surface nodularity suspicious for cirrhosis noted on CT scan on 12/26/2021. He also had moderate amount of ascites noted at bedtime. Unable to do paracentesis due to Plavix. Discussed with patient. Recommended he discuss this with his doctor to arrange this as an outpatient. Subjective Date/time seen: 01/06/22 13:50 Interval history: 76yo male with with CHF, AICD/PM, DM, TITA, COPD and CKD here for syncope. Slept well last night. Does not require oxygen during the day but
[2022-01-06] MEDS: CHOLECALCIFEROL 1,000 UNITS TABLET 5000 UNITS PO (21:17)
[2022-01-06] MEDS: SACUBITRIL/VALSARTAN 24-26 MG TABLET 1 TAB PO (21:18)
[2022-01-07] VITALS: PULSE 68; PULSE 72
[2022-01-07 04:00] VITALS: BP 127/64; PULSE 67; PULSE 71; RESP 19; TEMP 36.6; O2SAT 98
[2022-01-07 06:20] LABS: Basophils Percent Auto 0.5 % (0.2-1.2); Eosinophils Absolute Auto 0.3 K/mm3 (0-0.3); Eosinophils Percent Auto 4.6 % (0-4.4); Hematocrit 31.9 % (42.0-52.0); Hemoglobin 9.7 g/dL (14.0-18.0); Immature Granulocyte Absolute 0.01 K/mm3 (0.00-0.031); Immature Granulocyte Percent A 0.2 % (0-0.5); Lymphocytes Absolute Auto 0.96 K/mm3 (0.9-3.2); Lymphocytes Percent Auto 15.9 % (18.3-44.2); Mean Corpuscular HGB Conc 30.4 g/dl (32-36); Mean Corpuscular Hemoglobin 29.8 pg (26-34); Mean Corpuscular Volume 97.9 fl (80-100); Mean Platelet Volume 12.8 fl (7.4-10.4); Monocytes Absolute Auto 0.7 K/mm3 (0.1-0.6); Monocytes Percent Auto 10.8 % (2.6-8.5); Neutrophils Absolute Auto 4.1 K/mm3 (1.3-6.7); Platelet Count Result 119 k/mm3 (150-375); Red Blood Count 3.26 M/mm3 (4.6-6.20); Red Cell Distribution Width 17.3 % (11.5-14.5)
[2022-01-07] MEDS: LEVOTHYROXINE SODIUM 50 MCG TABLET PO (06:27)
[2022-01-07 06:40] LABS: Alanine Aminotransferase 11 U/L (4-50); Albumin Level 3.9 g/dL (3.5-5.1); Alkaline Phosphatase 85 U/L (38-126); Anion Gap 9 mmol/L (8-16); Aspartate Amino Transferase 19 U/L (17-59); Bilirubin,Total 0.5 mg/dL (0.2-1.3); Blood Urea Nitrogen 79 mg/dL (9-20); Calcium 9.1 mg/dL (8.4-10.2); Carbon Dioxide 29 mmol/L (22-30); Chloride 101 mmol/L (98-107); Estimated CRCL calculation 17 ml/min; Estimated Glomerular Filt Rate 20; Glucose 94 mg/dL (65-110); Potassium 4.8 mmol/L (3.4-5.0); Sodium 139 mmol/L (137-145)
[2022-01-07 08:00] VITALS: BP 136/71; PULSE 60; PULSE 64; PULSE 72; RESP 16; RESP 21; TEMP 37; O2SAT 100
--- NOTE | 2022-01-07 08:07 | PM.PNCARD ---
Progress Note: A&P Additional Plan 76-year-old man with: Brief syncopal episode presumably the result of hypotension. Entresto dosage has been reduced by half. He is reasonably well compensated he does have some mild lower extremity edema but this will be chronic for Mr. Morrell. The patient has not had an arrhythmic event according to the information from his ICD. Discharge today is okay with me follow-up is already arranged in my office. Yehuda Richmond MD [facility] Subjective Date/time seen: Date of service: 01/07/22 08:07 Interval history: Follow-up visit in this 76-year-old man with: Significant ischemic cardiomyopathy as detailed in multiple previous notes. Patient was admitted with a syncopal episode that occurred at home. The event is probably related to hypotension although it certainly occurred suddenly. His ICD device check demonstrated no arrhythmias during this event. His Entresto dosage has been reduced for this reason +modest hyperkalemia. He feels well today and offers no complaints. Exam Const: General: cooperative, comfortable, no acute distress, alert and awake Nutritional Appearance: well nourished Orientation/consciousness: patient oriented x3 HENMT: Head: normal to inspection, normocephalic and atraumatic Ears: hearing grossly normal bilaterally General nose exam: Normal external nose present, Normal nares present and no nasal discharge noted Face and sinus: normal facial exam and no erythema Mouth: No drooling and No restricted motion Throat: uvula midline Eyes: General: appearance normal, both eyes and all related structures Alignment and Position: position normal Conjunctivae: conjunctivae normal Sclera: sclerae normal Direct Ophthalmoscopy: No photophobia Neck: Neck: normal visual inspection and no JVD Thyroid: thyroid normal Carotids: no bruits Lymphatic: lymphedema not noted Chest: Chest palpation & inspection: normal inspection of the chest and no tenderness Resp: Effort & Inspection: normal respiratory effort and no nasal flaring Auscultation: clear to auscultation bilaterally, no crackles, no rales and no wheezes Cardio: Jugular venous distension: no JVD Rate: regular rate Rhythm: regular rhythm Heart sounds: S1 normal heart sound present, S2 normal heart sound present, no gallops, no murmurs and no rubs GI: Inspection: non-distended Auscultation: normal bowel sounds Rectal Exam: deferred : General: No no CVA tenderness Back/Spine/Pelvis: Back: No no CVA tenderness Cervical Spine: cervical ROM normal Skin: General skin exam: normal color and rashes and/or lesions noted Neuro: General: patient oriented x3 Cranial nerves: No CN's II-XII intact bilaterally Speech: normal speech Motor exam (neuro): no tremors Extrem: General: abnormal to inspection and edema Psych: Appearance: grossly normal and well kempt Speech and movement: Normal speech and movement present Affect: normal affect Objective Data Vital Signs Vital Signs: Vital Signs - 24 hr 01/06/22 08:48 01/06/22 12:00 01/06/22 16:00 Temperature 35.7 C L Pulse Rate 63 68 63 Respiratory Rate 19 Blood Pressure 136/99 H Pulse Oximetry 97 01/06/22 20:00 01/06/22 21:18 01/07/22 00:00 Temperature 36.3 C L Pulse Rate 69 60 68 Respiratory Rate 19 Blood Pressure 139/66 Pulse Oximetry 100 01/07/22 04:00 Temperature 36.6 C Pulse Rate 67 Respiratory Rate 19 Blood Pressure 127/64 Pulse Oximetry 98 Intake/Output Intake/Output: Intake & Output 01/04/22 01/05/22 01/06/22 01/07/22 23:59 23:59 23:59 23:59 Intake Total 440 900 380 Output Total 750 1150 1000 Balance -891 -503 -108 Meds/Results Medications: Active Medications Generic Name Dose Route Start Last Admin Trade Name Freq PRN Reason Stop Dose Admin Aspirin 81 mg 01/05/22 09:00 01/06/22 08:49 Aspirin 81 Mg Enteric Tablet PO 81 mg DAILY JEFF Administration Atorvastatin Calcium 80 mg 01/05/22 09:00
[2022-01-07 09:41] VITALS: PULSE 59
[2022-01-07] MEDS: ATORVASTATIN 40 MG TABLET 80 MG PO (09:41)
[2022-01-07] MEDS: OPTI-GEN TAB 1 TABLET PO (09:41)
[2022-01-07] MEDS: carvediloL 6.25 MG TABLET PO (09:41)
[2022-01-07] MEDS: ISOSORBIDE MONONITRATE 30 MG TAB.ER.24H PO (09:41)
[2022-01-07] MEDS: ASPIRIN 81 MG ENTERIC TABLET PO (09:41)
[2022-01-07] MEDS: FUROSEMIDE INJ 40 MG/4 ML VIAL IV PUSH (09:41)
[2022-01-07] MEDS: CLOPIDOGREL BISULFATE 75 MG TABLET PO (09:43)
[2022-01-07] MEDS: SACUBITRIL/VALSARTAN 24-26 MG TABLET 1 TAB PO (09:44)
[2022-01-07] MEDS: INSULIN GLARGINE (*BKC) 100 UNITS/ML SUB-Q (09:44)
[2022-01-07 09:54] LABS: Glucose Point of Care 109 mg/dl (65-105)
[2022-01-07 11:00] VITALS: PULSE 65; O2SAT 96
[2022-01-07 11:01] VITALS: PULSE 76; O2SAT 94
--- NOTE | 2022-01-07 11:01 | PCRCNOTE ---
Home O2 evaluation done. Pt was resting on Room air sating 96%. While ambulating pt dropped to 90% and jumped back up to 93% and sustained that level for most of the walk. Pt does not require oxygen at home during the day while ambulating or resting.
--- NOTE | 2022-01-07 14:24 | PM.DS ---
DS: Admitting Diagnosis Discharge Date 01/07/2022 Admitting Diagnosis Syncopal episode DS: Discharge Diagnosis Discharge Diagnosis (1) Syncope: Qualifiers: Syncope type: vasovagal syncope Qualified Code(s): R55 - Syncope and collapse Code(s): R55 - Syncope and collapse Status: Acute Assessment and Plan: Probable vasovagal versus orthostatic. He does have symptoms with lightheadedness when he stands. Orthostatic BP are good adjust Entresto. AICD interrogated. Pt has history of ischemic cardiomyopathy. (2) Acute hyperkalemia: Code(s): E87.5 - Hyperkalemia Status: Acute Assessment and Plan: Potassium 5.3 on admission. He has had problems with this in the past. Spironolactone stopped. Entresto held. Potassium is nl now, will resume Entresto at lower dose. (3) Acute on chronic systolic (congestive) heart failure: Code(s): I50.23 - Acute on chronic systolic (congestive) heart failure Status: Acute Assessment and Plan: Echo in November showing EF 30-35% with grade II diastolic dysfunction and severe pulmonary HTN. CXR here showing small left-sided pleural effusion and congestive changes. 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 unable to perform paracentesis since he is still on Plavix (see previous note). Albumin given. He has been started on IV Lasix with reasonably good response. (4) Insulin dependent type 2 diabetes mellitus: Code(s): E11.9 - Type 2 diabetes mellitus without complications; Z79.4 - [facility] (current) use of insulin Status: Acute Assessment and Plan: A1c 6.0 last week. The patient's blood glucose was reviewed on 01/06 Glucose remains well controlled. (5) Coronary artery 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: Code(s): I25.810 - Atherosclerosis of coronary artery bypass graft(s) without angina pectoris Status: Acute Assessment and Plan: Stable. Continue medical management with Aspirin, Plavix, Imdur, Coreg, Lipitor. (6) Essential hypertension: Code(s): I10 - Essential (primary) hypertension Status: Chronic Assessment and Plan: Patient's blood pressure was reviewed on 01/06 Blood pressure remains well controlled. Will continue current medications. Add back lower dose Entresto. (7) Chronic kidney disease, stage 4 (severe): Code(s): N18.4 - Chronic kidney disease, stage 4 (severe) Status: Acute Assessment and Plan: Cr 2.8 with BUN 73 on admission and at baseline. Creat is 3.1 today. (8) Sleep apnea, unspecified: Onset Date: 12/29/15 Code(s): G47.30 - Sleep apnea, unspecified Status: Chronic Assessment and Plan: NIV ordered but not used. Patient is intolerant to NIV. Continue to use O2 at night. (9) Carotid stenosis, bilateral: Code(s): I65.23 - Occlusion and stenosis of bilateral carotid arteries Status: Acute Assessment and Plan: Hx of carotid stenosis. Continue Aspirin, Plavix and Lipitor. DS: Summary Hospital Course Hospital Course: Probable vasovagal versus orthostatic. He does have symptoms with lightheadedness when he stands. Orthostatic BP are good. I will lower Entresto on discharge. AICD interrogated. Pt has history of ischemic cardiomyopathy. Time Spent with Patient Time attestation: Total time spent providing and/or coordinating discharge services:45 minutes on day of discharge Exam Narrative: Gen - Comfortable pleasant elderly man Chest - CTA bilaterally, nml RR. CV - RRR S1/S2. Abd - Soft, positive bowel sounds. Evidence of multiple surgeries. Ext - L>R 1+ pedal edema Psych - Nml mood and affect Skin - Warm and dry DS: Data Data Completed and Pending Labs on day of discharge: Labs from last 24 hours 01/07/22 01/07/22 01/07/22 09:50 05:18 05:18 WBC RBC Hgb Hct MCV MCH MCHC RDW Plt Count MPV
[2022-01-11 14:46] LABS: Methylmalonic Acid 558 nmol/L (87-318)
== END 2022-01-07 16:21 | disposition home or self-care (01) ==
LOC: ANHED 21:38 → ANHCPC 01-05 10:41 → ANH3MEDSUR 01-10 12:46 → ANHCPC 01-10 12:46
PROVIDERS: Emergency Medicine; Internal Medicine; Admitting Provider Internal Medicine; Emergency Provider Emergency Medicine; PCP Family Medicine; Visit Provider Family Medicine
DX: R55 Syncope and collapse (principal); E87.5 Hyperkalemia; I13.0 Hypertensive heart and chronic kidney disease with heart failure and stage 1 through stage 4 chronic kidney disease, or unspecified chronic kidney disease; J90 Pleural effusion, not elsewhere classified; I25.5 Ischemic cardiomyopathy; I50.23 Acute on chronic systolic (congestive) heart failure; I71.4 Abdominal aortic aneurysm, without rupture; J44.9 Chronic obstructive pulmonary disease, unspecified; N18.4 Chronic kidney disease, stage 4 (severe); I25.810 Atherosclerosis of coronary artery bypass graft(s) without angina pectoris; K21.9 Gastro-esophageal reflux disease without esophagitis; E03.9 Hypothyroidism, unspecified; E11.22 Type 2 diabetes mellitus with diabetic chronic kidney disease; G47.33 Obstructive sleep apnea (adult) (pediatric); E11.51 Type 2 diabetes mellitus with diabetic peripheral angiopathy without gangrene; I65.23 Occlusion and stenosis of bilateral carotid arteries; L40.9 Psoriasis, unspecified; Z20.822 Contact with and (suspected) exposure to COVID-19; Z79.82 Long term (current) use of aspirin; Z79.4 Long term (current) use of insulin; Z86.718 Personal history of other venous thrombosis and embolism; Z95.1 Presence of aortocoronary bypass graft; Z95.810 Presence of automatic (implantable) cardiac defibrillator; Z87.891 Personal history of nicotine dependence; Z79.02 Long term (current) use of antithrombotics/antiplatelets
CPT/HCPCS: 36415; 70450; 71045; 72125; 80053; 82607; 82746; 82948; 83735; 83921; 84100; 84132; 85025; 93005; 94618; 96365; 96366; 96372; 96374; 96375; 96376; 97161; 97165; 99285; A9270; C9803; G0378; J1644; J1815; J1940; P9047; U0003; U0005

== ENCOUNTER 2022-01-11 10:23 | Outpatient (CLI) | payer MEDICARE, SELFPAY ==
--- NOTE | ~2022-01-11 | US_ITS ---
US abdomen complete EXAMINATION: US Abdomen Complete INDICATION: Ascites PROCEDURE: Realtime High Resolution abdomen ultrasound. COMPARISON: No prior studies for comparison FINDINGS: There are gallstones with gallbladder wall thickening. Common bile duct measures 2.4 mm. T here is ascites. Liver echotexture is increased and heterogeneous. There is nodular liver surface, consistent with cir rhosis.. Pancreas within normal limits. Pancreatic tail is obscured by bowel gas. Spleen is unrema rkeable. There is right renal atrophy. No masses, stones or hydronephrosis. Right kidney measures 7.6 cm. Left kidney measures 11.9 cm. Visualized aspects of the aorta and IVC are within normal limits. Portal vein is patent. No sonograph ic Treadwell's sign indicated by the technologist. IMPRESSION: 1: Cirrhosis with small amount of ascites. 2: Cholelithiasis with gallbladder wall thickening. Consider cholecystitis in the appropriate clinic al setting. 3: Right renal atrophy. Reviewed, dictated and finalized at location A. [employer] TECHNOLOGIST IMPRESSION: 1: Cirrhosis with small amount of ascites. 2: Cholelithiasis with gallbladder wall thickening. Consider cholecystitis in the appropriate clinical setting. 3: Right renal atrophy.
== END 2022-01-11 10:24 | disposition home or self-care (01) ==
PROVIDERS: PCP Family Medicine; Visit Provider Family Medicine
DX: R18.8 Other ascites (principal); K76.0 Fatty (change of) liver, not elsewhere classified; K80.20 Calculus of gallbladder without cholecystitis without obstruction; N26.1 Atrophy of kidney (terminal)
CPT/HCPCS: 76700

== ENCOUNTER 2022-01-21 11:55 | Observation (INO) | payer MEDICARE, SELFPAY ==
[2022-01-21] VITALS (13 sets, daily range): BP systolic 106–145; BP diastolic 48–94; PULSE 58–103; RESP 11–25; TEMP 36.1–36.8; O2SAT 92–98; BMI 31.0
--- NOTE | ~2022-01-21 | XR_ITS ---
EXAMINATION: XR chest 2V DATE: 01/21/2022 12:54 INDICATION: Congestive heart failure. Dizziness. TECHNIQUE: Frontal and lateral views of the chest were obtained. COMPARISON: Chest single view 01/04/2022, CT abdomen and pelvis 12/26/2021 FINDINGS: There is a moderate-sized left pleural effusion. There are airspace opacities at left lung base. There is a diffuse interstitial pattern in the lungs, consistent with pulmonary edema. No pneum othorax. Cardiomegaly is noted. Median sternotomy wires and mediastinal surgical clips are seen, like ly from prior coronary artery bypass grafting. There is a left chest pacer/defibrillator with lead in right ventricle. IMPRESSION: 1. Mild pulmonary edema. 2. Stable moderate-sized left pleural effusion. 3. Stable airspace opacities at left lung base, consistent with atelectasis or less likely pneumonia. 4. Cardiomegaly. Reviewed, dictated and finalized at location A. SECURITY PROJECT MANAGER
--- NOTE | 2022-01-21 12:16 | ECG_ITS ---
Measurements Intervals [place] Rate: 60 P: 65 VT: 149 QRS: 31 QRSD: 126 T: 178 QT: 440 QTc: 441 Interpretive Statements SINUS RHYTHM POSSIBLE OLD INFERIOR MYOCARDIAL INFARCTION MODERATE T-WAVE ABNORMALITY, CONSIDER ANTEROLATERAL ISCHEMIA [-0.1+ mV T-WAVE IN V3- V6] COMPARED TO ECG 01/04/2022 17:54:08, NO SIGNIFICANT CHANGE Electronically Signed On 01-21-2022 13:24:29 [employer]ICE [employer] by Rebekah Valencia M.D.
[2022-01-21] MEDS: SODIUM CHLORIDE 0.9% IV 1,000 ML 999 ML IV CONT (12:21)
[2022-01-21 12:37] LABS: Basophils Percent Auto 0.6 % (0.2-1.2); Eosinophils Absolute Auto 0.3 K/mm3 (0-0.3); Eosinophils Percent Auto 5.1 % (0-4.4); Hematocrit 36.2 % (42.0-52.0); Hemoglobin 10.7 g/dL (14.0-18.0); Immature Granulocyte Absolute 0.02 K/mm3 (0.00-0.031); Immature Granulocyte Percent A 0.3 % (0-0.5); Lymphocytes Absolute Auto 0.86 K/mm3 (0.9-3.2); Lymphocytes Percent Auto 13.2 % (18.3-44.2); Mean Corpuscular HGB Conc 29.6 g/dl (32-36); Mean Corpuscular Hemoglobin 29.6 pg (26-34); Mean Corpuscular Volume 100.3 fl (80-100); Mean Platelet Volume 11.9 fl (7.4-10.4); Monocytes Absolute Auto 0.7 K/mm3 (0.1-0.6); Monocytes Percent Auto 10.3 % (2.6-8.5); Neutrophils Absolute Auto 4.6 K/mm3 (1.3-6.7); Neutrophils Percent Auto 70.5 % (45.5-73.1); Platelet Count Result 163 k/mm3 (150-375); Red Blood Count 3.61 M/mm3 (4.6-6.20); Red Cell Distribution Width 17.2 % (11.5-14.5); White Blood Count 6.5 K/mm3 (4.5-10.0)
[2022-01-21 12:50] LABS: Alanine Aminotransferase 16 U/L (4-50); Albumin Level 4.2 g/dL (3.5-5.1); Alkaline Phosphatase 102 U/L (38-126); Anion Gap 10 mmol/L (8-16); Aspartate Amino Transferase 23 U/L (17-59); Bilirubin,Total 0.6 mg/dL (0.2-1.3); Blood Urea Nitrogen 80 mg/dL (9-20); CRP 2.9 mg/dL (<1.0); Calcium 9.1 mg/dL (8.4-10.2); Carbon Dioxide 23 mmol/L (22-30); Chloride 106 mmol/L (98-107); Estimated CRCL calculation 25 ml/min; Estimated Glomerular Filt Rate 23; Glucose 119 mg/dL (65-110); Potassium 5.9 mmol/L (3.4-5.0); Sodium 139 mmol/L (137-145)
[2022-01-21 12:57] LABS: INR 1.3; Prothrombin Time 15.4 Seconds (11.1-14.7)
[2022-01-21 12:58] LABS: Partial Thromboplastin Time 32.6 SECONDS (22.3-36.8)
[2022-01-21 13:00] LABS: Add Urine Microscopic? YES; Appearance Urine Cloudy (Clear); Bilirubin Urine Negative (Negative); Color Urine Yellow (Yellow); Glucose Urine UA Negative (Negative); Ketones Urine Negative (Negative); Leukocyte Esterase Ur Negative LEU/UL (Negative); Mucus Urine Rare /lpf; Nitrate Urine Negative (Negative); Protein Urine 2+ mg/dL (Negative); Specific Grav Ur 1.011 (1.001-1.035); Squamous Epithelial Cell Urine Rare /hpf (Few); Urobilinogen Urine Negative mg/dL (<2.0); WBC Urine 16-20 /hpf
[2022-01-21 13:01] LABS: Troponin I 0.045 ng/mL (0.000-0.034)
[2022-01-21 13:04] LABS: Anisocytosis 2+ (NORMAL); Hypochromasia 1+ (NORMAL); Platelet Estimate Adequate (Adequate)
[2022-01-21 13:05] LABS: Lactic Acid Reflex 1.4 mmol/L (0.7-2.1)
[2022-01-21 13:06] LABS: Blood Urine Negative (Negative)
--- NOTE | 2022-01-21 13:24 | ED.DIZZY ---
HPI - Dizziness General Chief Complaint: Dizziness Stated Complaint: Dizziness Time Seen by Provider: 01/21/22 12:13 Source: patient Mode of arrival: EMS Limitations: no limitations History of Present Illness HPI Narrative: Patient is 76 years old white female lives alone came to the emergency room by ambulance because of sudden onset of lightheadedness, dizziness, spinning, associated with nausea and the increase pain at the upper back, started while trying to get out of bed this morning. Currently patient is asymptomatic. History of vertigo. Patient denies any fever, chills, vomiting, chest pain, headache or abdominal pain. Patient also denies any focal deficit. History of congestive heart failure Related Data Home Medications Medication Instructions Recorded Confirmed atorvastatin 80 mg tablet 80 mg PO DAILY 09/23/19 01/05/22 PreserVision AREDS-2 1 cap PO Q12H 10/20/20 01/05/22 aspirin 81 mg tablet,delayed 81 mg PO DAILY 01/19/21 01/05/22 release furosemide 40 mg tablet 40 mg PO Q12H tablet 01/19/21 01/05/22 Basaglar KwikPen U-100 Insulin 5 unit SUBCUT QAM 08/02/21 01/05/22 cholecalciferol (vitamin D3) 125 mcg PO HS 08/02/21 01/05/22 isosorbide mononitrate 60 mg PO DAILY 08/02/21 01/05/22 Allergies Allergy/AdvReac Type Severity Reaction Status Date / Time Penicillins Allergy Severe unknown Verified 01/04/22 17:53 Review of Systems Review of Systems: CONSTITUTIONAL: Denies fever, chills, or sweats. EYES: Denies visual changes, redness, or discharge. ENT: Denies rhinorrhea, congestion, sore throat, or otalgia. CARDIOVASCULAR: Denies chest pain, palpitations, or edema. RESPIRATORY: Denies cough or dyspnea. GASTROINTESTINAL: Denies abdominal pain, nausea, vomiting, or diarrhea. GENITOURINARY: Denies dysuria or hematuria. SKIN: Denies rash or itching. MUSCULOSKELETAL: Denies back pain, joint pain, or myalgia. NEUROLOGIC: Denies headache, numbness, or weakness. PSYCHIATRIC: Denies anxiety or depression. [facility] Past Medical History Medical History Abdominal aortic aneurysm Arthritis Ascites Carotid stenosis, bilateral Carpal tunnel syndrome Chronic anemia Chronic kidney disease, stage 4 (severe) COPD (chronic obstructive pulmonary disease) Deep venous thrombosis Essential hypertension Gastroesophageal reflux disease Heart failure with reduced ejection fraction Echo in 07/2021: 1. Technically difficult study with limited views. 2. Moderately reduced LF function with an EF estimated at 30-35% with hypokinesis of the mid to basal anterolateral, inferior, anterior, and basal inferoseptal arroyo with relative sparing of the apex. 3. Mildly increased LV wall thickness. 4. Left atria is moderately enlarged. 5. Mild tricuspid valve regurgitation. 6. Severe pulmonary hypertension with an estimated pulmonary arterial systolic pressure of 65 mmHg. Hypothyroidism Insulin dependent type 2 diabetes mellitus Mixed hyperlipidemia Obstructive sleep apnea Intolerant to CPAP. Wears oxygen at nighttime. Pancreatitis Peripheral vascular disease Psoriasis Umbilical hernia without obstruction and without gangrene Volume overload Surgical History Surgical History H/O abdominal surgery Revascularization to renal arteries and mesenteric artery H/O fasciotomy Right leg History of cataract extraction History of embolectomy Right leg History of stent insertion of renal artery History of tonsillectomy Hx of CABG Initially 5 vessel CABG and later on he had 1 that was redone now for those vessels are occluded he has collateral only 1 vessel is pain Hx of cardiac catheterization Multiple times Presence of combination internal cardiac defibrillator (ICD) and pacemaker S/P carotid endarterectomy Family History Family History Mother Hypertension Family history of coronary
--- NOTE | 2022-01-21 15:11 | ADMGEN ---
This patient, Jaime Morrell, was admitted to IMU Room 201-01 at 1504. Patient/family oriented to hospital policies and general routines including ID bracelet, bed and alarms, visiting hours, pain management, procedures, bathroom and other care routines, personal items, smoking policy, room service/diet, and visiting hours. Information on how to activate the Rapid Response Team has been discussed. Patient/Family are encouraged to report perceived risks to care and to ask questions if they do not understand what they are told or what they should do.
--- NOTE | 2022-01-21 15:52 | PM.IMHP ---
H&P: HPI History of Present Illness Date/Time: Patient was placed observation status for expected length of stay less than 23 hours for management, will plan to re-evaluate tomorrow for improvement. 01/21/22 15:52 Chief Complaint: Dizziness Narrative: Mr. Morrell is a 76-year-old gentleman who presented emergency room with complaints of dizziness and nausea that occurred this morning. Patient has a significant cardiac history of coronary artery disease status post coronary artery bypass grafting x2, ischemic cardiomyopathy status post ICD placement, right carotid stenosis status post endarterectomy, diabetes mellitus, chronic kidney disease and dyslipidemia. Patient's states that patient had got up this morning and went to the restroom and when he was leaving the restroom he sat down in his bed in became extremely dizzy. Patient said he felt like he was going to fall off the bed. Patient states he was also having lower back pain at that time. Patient states he did stand up he felt very uncoordinated. Patient states he was mildly nauseated with this dizziness. Patient denies any vomiting, chest pain, shortness Sineff, or palpitations. Patient states he did see his Cardiology last week and had no complaints at that time. Patient states that he has been taking all medications without any difficulty. Upon evaluation in emergency room patient was noted to have an elevated potassium and new EKG changes. Patient was noted to have inverted T-waves with worsening ST depression in the precordial lateral leads. Cardiology's consult and they thought it best the patient be observed overnight. Review of Systems Review of Systems: A 12 point review of systems was completed patient all pertinent positive and negative per HPI the remainder are unremarkable. [facility] Past Medical History Medical History (Updated 01/21/22 @ 16:04 by Julia Terrell APRN) Abdominal aortic aneurysm Arthritis Ascites Carotid stenosis, bilateral Carpal tunnel syndrome Chronic anemia Chronic kidney disease, stage 4 (severe) COPD (chronic obstructive pulmonary disease) Deep venous thrombosis Essential hypertension Gastroesophageal reflux disease Heart failure with reduced ejection fraction Echo in 07/2021: 1. Technically difficult study with limited views. 2. Moderately reduced LF function with an EF estimated at 30-35% with hypokinesis of the mid to basal anterolateral, inferior, anterior, and basal inferoseptal arroyo with relative sparing of the apex. 3. Mildly increased LV wall thickness. 4. Left atria is moderately enlarged. 5. Mild tricuspid valve regurgitation. 6. Severe pulmonary hypertension with an estimated pulmonary arterial systolic pressure of 65 mmHg. Hypothyroidism Insulin dependent type 2 diabetes mellitus Mixed hyperlipidemia Obstructive sleep apnea Intolerant to CPAP. Wears oxygen at nighttime. Pancreatitis Peripheral vascular disease Psoriasis Umbilical hernia without obstruction and without gangrene Vertigo Volume overload Surgical History Surgical History H/O abdominal surgery Revascularization to renal arteries and mesenteric artery H/O fasciotomy Right leg History of cataract extraction History of embolectomy Right leg History of stent insertion of renal artery History of tonsillectomy Hx of CABG Initially 5 vessel CABG and later on he had 1 that was redone now for those vessels are occluded he has collateral only 1 vessel is pain Hx of cardiac catheterization Multiple times Presence of combination internal cardiac defibrillator (ICD) and pacemaker S/P carotid endarterectomy Family History Family History Mother Hypertension Family history of coronary artery disease Father Acute myocardial infarction Family history of coronary artery disease Sibling Heart disease Hyperlipidemia Social History Social History (Revie
[2022-01-21 16:41] LABS: Glucose Point of Care 107 mg/dl (65-105)
--- NOTE | 2022-01-21 17:42 | PM.CNCAR ---
Assessment and Plan Assessment and plan (1) Dizziness: Code(s): R42 - Dizziness and giddiness Status: Acute Assessment and Plan: Patient had episode of vertigo, probably benign positional vertigo, on admission. Doubt stroke. (2) Acute electrocardiogram changes: Code(s): R94.31 - Abnormal electrocardiogram [ECG] [EKG] Status: Acute Assessment and Plan: Patient has chronic anterolateral T-wave changes, the magnitude of which wax and wane. There was no associated chest pain and this does not sound like an ACS event. Cardiac status stable. No further cardiac evaluation recommended. PPossibly discharge in a.m.? (3) Elevated troponin: Code(s): R77.8 - Other specified abnormalities of plasma proteins Status: Acute Assessment and Plan: Chronically elevated troponins, this is not an ACS event. (4) Acute hyperkalemia: Code(s): E87.5 - Hyperkalemia Status: Acute Assessment and Plan: Hyperkalemia noted. Diet contributing; Patient has been eating more potatoes enjoys 10 oz of orange juice every morning. Entresto contributing Treated in ER w/ kayexalate, insulin and dextrose. Veltassa not available here, but perhaps can be used as OPT Counseling regarding avoidance of high k+ foods Check BMP in a.m. (5) Chronic diastolic CHF (congestive heart failure): Code(s): I50.32 - Chronic diastolic (congestive) heart failure Status: Acute Assessment and Plan: Chronic mild fluid overload and chronic diastolic CHF. Weight stable. Chest x-ray actually looks better than last admission in December. Continue curent tx (6) Coronary artery 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: Code(s): I25.810 - Atherosclerosis of coronary artery bypass graft(s) without angina pectoris Status: Acute Assessment and Plan: Long history of CAD, CABG and redo etc.. Last cardiac catheterization in 2019 showed his coronary circulation depended on his saphenous vein graft to the Left anterior descending. Patient has been stable on medical therapy and dual anti-platelet therapy. Not having any angina. Cont current tx (7) CKD stage 4 due to type 2 diabetes mellitus: Code(s): E11.22 - Type 2 diabetes mellitus with diabetic chronic kidney disease; N18.4 - Chronic kidney disease, stage 4 (severe) Status: Acute Assessment and Plan: Stable CKD, though patient is being prepped for eventual dialysis. History of Present Illness History of Present Illness Consult date/time: 01/21/22 17:42 Requesting physician: Julia Terrell APRN Consult reason: Other Reason For Visit: Vertigo, NSTEMI, Hyperkalemia Narrative: Chang Morrell is a 76-year-old male whom I was asked to see at the request of Dr. Abdon carreon and nurse practitioner Julia Porter for my advice and opinion regarding his elevated troponins and hyperkalemia in consultation. Mr. Morrell is followed by Dr. 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 Apparently when he had cardiac catheterization at [place] in 2019 his entire coronary circulation was dependent on a saphenous vein graft to the Left anterior descending. He also has peripheral vascular disease, congestive heart failure, chronic kidney disease, ICD, and history orthostasis. He just saw Dr. Richmond on 01/17/2022 doing well, a bit lightheaded in the morning. Lower extremity edema was mild and stable and he was having no chest pain. His counter intelligence is anticipating that he will need to go on dialysis. This morning walked to the bathroom and got dizzy and nauseated. He felt like he was spinning and he was floppy, unable to control his body well. He has chronic low back pain but this was worse. He became anxious and scared and called 911. When EMS arrived his blood pressure was 141/59, heart rate 64 and O2 sat 98%. Symptoms resolved. The ER physician was concer
[2022-01-21 18:27] LABS: Potassium 5.3 mmol/L (3.4-5.0)
[2022-01-21 18:43] LABS: Troponin I 0.034 ng/mL (0.000-0.034)
[2022-01-21 20:38] LABS: Glucose Point of Care 133 mg/dl (65-105)
[2022-01-21] MEDS: carvediloL 6.25 MG TABLET PO (22:20)
[2022-01-21] MEDS: OPTI-GEN TAB 1 TABLET PO (22:20)
[2022-01-21] MEDS: CHOLECALCIFEROL 1,000 UNITS TABLET 5000 UNITS PO (22:20)
[2022-01-21] MEDS: FUROSEMIDE 40 MG TABLET PO (22:20)
[2022-01-21] MEDS: HEPARIN SODIUM 5,000 UNITS/ML VIAL 5000 UNITS SUB-Q (22:21)
[2022-01-22] VITALS (9 sets, daily range): BP systolic 100–121; BP diastolic 49–52; PULSE 54–77; RESP 16–20; TEMP 36.6–37.1; O2SAT 94–97
[2022-01-22 01:02] LABS: Anion Gap 13 mmol/L (8-16); Blood Urea Nitrogen 82 mg/dL (9-20); Calcium 9.1 mg/dL (8.4-10.2); Carbon Dioxide 20 mmol/L (22-30); Chloride 106 mmol/L (98-107); Estimated CRCL calculation 24 ml/min; Estimated Glomerular Filt Rate 24; Glucose 117 mg/dL (65-110); Potassium 5.4 mmol/L (3.4-5.0); Sodium 139 mmol/L (137-145)
--- NOTE | 2022-01-22 03:03 | PC.NURSE ---
Daylight Savings Time For Daylight Savings Time Ending in the Fall - Clocks are moved back. For Daylight Savings Time Beginning in the Spring - Clocks are moved ahead. For [facility], the time of change occurs at 0200 hrs. Time is taken from the seismic prospecting observer helper. This entry on the patient's chart recognizes the change in time reflected during documentation. Example: 2 entries for vital signs may be charted for 0200 hrs.
--- NOTE | 2022-01-22 05:21 | PC.NURSE ---
Potassium content of foods added to discharge planning per MD order.
[2022-01-22 05:36] LABS: Alanine Aminotransferase 14 U/L (4-50); Albumin Level 3.9 g/dL (3.5-5.1); Alkaline Phosphatase 101 U/L (38-126); Anion Gap 12 mmol/L (8-16); Aspartate Amino Transferase 21 U/L (17-59); Bilirubin,Total 0.4 mg/dL (0.2-1.3); Blood Urea Nitrogen 83 mg/dL (9-20); Calcium 8.9 mg/dL (8.4-10.2); Carbon Dioxide 22 mmol/L (22-30); Chloride 106 mmol/L (98-107); Estimated CRCL calculation 23 ml/min; Estimated Glomerular Filt Rate 23; Glucose 106 mg/dL (65-110); Potassium 5.5 mmol/L (3.4-5.0); Sodium 140 mmol/L (137-145)
--- NOTE | 2022-01-22 06:00 | ECG_ITS ---
Measurements Intervals [place] Rate: 74 P: 12 NC: 156 QRS: 25 QRSD: 125 T: 171 QT: 404 QTc: 451 Interpretive Statements SINUS RHYTHM POSSIBLE OLD LATERAL MYOCARDIAL INFARCTION POSSIBLE INFERIOR MYOCARDIAL INFARCTION , PROBABLY OLD [30 ms Q WAVE IN II/aVF] MODERATE T-WAVE ABNORMALITY, CONSIDER ANTERIOR ISCHEMIA [-0.1+ mV T WAVE IN V3/V4] COMPARED TO ECG 01/21/2022 12:35:27 NO SIGNIFICANT CHANGES Electronically Signed On 01-22-2022 16:48:57 CDT by Rebekah Valencia M.D.
[2022-01-22] MEDS: LEVOTHYROXINE SODIUM 50 MCG TABLET PO (06:31)
[2022-01-22 08:27] LABS: Glucose Point of Care 97 mg/dl (65-105)
[2022-01-22] MEDS: OPTI-GEN TAB 1 TABLET PO (09:16)
[2022-01-22] MEDS: ISOSORBIDE MONONITRATE 60 MG TAB.ER.24H PO (09:16)
[2022-01-22] MEDS: FUROSEMIDE 40 MG TABLET PO (09:16)
[2022-01-22] MEDS: ASPIRIN 81 MG CHEWABLE TABLET PO (09:16)
[2022-01-22] MEDS: CLOPIDOGREL BISULFATE 75 MG TABLET PO (09:16)
[2022-01-22] MEDS: ATORVASTATIN 40 MG TABLET 80 MG PO (09:16)
[2022-01-22] MEDS: carvediloL 6.25 MG TABLET PO (09:17)
[2022-01-22] MEDS: HEPARIN SODIUM 5,000 UNITS/ML VIAL 5000 UNITS SUB-Q (09:18)
[2022-01-22] MEDS: INSULIN GLARGINE (*BKC) 100 UNITS/ML SUB-Q (09:21)
--- NOTE | 2022-01-22 11:27 | PM.DS ---
DS: Admitting Diagnosis Discharge Date Patient was seen and examined on discharge day a January 22, 2022 Admitting Diagnosis Vertigo and hyperkalemia DS: Discharge Diagnosis Discharge Diagnosis (1) Dizziness: Code(s): R42 - Dizziness and giddiness Status: Acute Assessment and Plan: Dizziness may have been vertigo since patient has had this issue in the past. Patient's troponins are mildly elevated 0.045, but this is much lower than they typically are. Patient did have EKG changes so cardiology has been consult and appreciate any further recommendations. Will have orthostatic blood pressures and pulses performed once a shift. (2) Acute hyperkalemia: Code(s): E87.5 - Hyperkalemia Status: Acute Assessment and Plan: Patient did received insulin and dextrose. Patient also received Kayexalate. Recheck potassium level this evening to re-evaluate if any further treatment is needed. Patient has had hyperkalemia in the past and his Entresto continues to be decreased with every episode of hypotension and hyperkalemia the patient has. Will defer to Cardiology to decide if Entresto needs to be discontinued altogether, or if a patient needs to be placed on a drug like Lokelma or Veltassa. (3) Acute electrocardiogram changes: Code(s): R94.31 - Abnormal electrocardiogram [ECG] [EKG] Status: Acute Assessment and Plan: Patient does have new T-wave inversions with increasing T-wave depression in the precordial lateral leads. Will trend troponins. Cardiology has been consult and appreciate further recommendations. Patient does deny any chest pain or anginal equivalents. (4) Elevated troponin: Code(s): R77.8 - Other specified abnormalities of plasma proteins Status: Acute Assessment and Plan: Patient does have new T-wave inversions with increasing T-wave depression in the precordial lateral leads. Will trend troponins. Cardiology has been consult and appreciate further recommendations. Patient does deny any chest pain or anginal equivalents. (5) Chronic kidney disease, stage 4 (severe): Code(s): N18.4 - Chronic kidney disease, stage 4 (severe) Status: Acute Assessment and Plan: Patient remains and stage 4 chronic kidney disease and is stable at this time no further treatment is needed. (6) Insulin dependent type 2 diabetes mellitus: Code(s): E11.9 - Type 2 diabetes mellitus without complications; Z79.4 - manager long term care (current) use of insulin Status: Acute Assessment and Plan: Will have blood glucose monitoring before meals and at bedtime with sliding scale insulin available. Will resume patient's home medications once we do have a verified list of medications. DS: Summary Hospital Course Reason for hospitalization: Vertigo and hyperkalemia Hospital Course: Presented to the ED with vertigo. This is chronic and intermittent for him. Was found to be hyperkalemic with potassium 5.9. Was treated with Kayexalate and IV loop diuretic as well as dextrose and insulin. He does have a history of chronic hyperkalemia stage 4 chronic kidney disease systolic congestive heart failure treated with Entresto. He is noncompliant with his low-salt low-potassium diet. He did agree to be more attentive to his dietary restrictions after discharge. These were reviewed in detail with him at bedside on the day of discharge. He will also receive printed information upon discharge. He remained asymptomatic throughout hospitalization other than his vertigo which resolved spontaneously overnight. Status at Discharge Functional status at discharge: independent ambulation Time Spent with Patient Time attestation: Total time spent providing and/or coordinating discharge services: Time spent: Greater than 30 minutes Exam Narrative: Constitutional: Patient is well-nourished in no acute distress. Patient is alert and oriented x3 HEENT: Moist mucous membranes. No scl
[2022-01-22 12:26] LABS: Glucose Point of Care 124 mg/dl (65-105)
--- NOTE | 2022-01-22 12:39 | PM.PNCARD ---
Progress Note: A&P Assessment and Plan (1) Dizziness: Code(s): R42 - Dizziness and giddiness Status: Acute Assessment and Plan: Patient had episode of vertigo, probably benign positional vertigo, on admission. Doubt stroke. No recurrence. (2) Acute electrocardiogram changes: Code(s): R94.31 - Abnormal electrocardiogram [ECG] [EKG] Status: Acute Assessment and Plan: Patient has chronic anterolateral T-wave changes, the magnitude of which waxand wane. There was no associated chest pain and this does not sound like an ACS event. Cardiac status stable. No further cardiac evaluation recommended. Okay for discharge. (3) Elevated troponin: Code(s): R77.8 - Other specified abnormalities of plasma proteins Status: Acute Assessment and Plan: Chronically elevated troponins, this is not an ACS event. (4) Acute hyperkalemia: Code(s): E87.5 - Hyperkalemia Status: Acute Assessment and Plan: Hyperkalemia noted. Diet contributing; Patient has been eating more potatoes enjoys 10 oz of orange juice every morning. Entresto and chronic kidney disease contributing Treated in ER w/ kayexalate, insulin and dextrose, with improvement. Veltassa not available here, but perhaps can be used as OPT Counseling regarding avoidance of high k+ foods Check BMP in 2 weeks, then decide if the patient will need Veltassa (I am not sure of the cost of this medicine) or a reduction of his Entresto. (5) Chronic diastolic CHF (congestive heart failure): Code(s): I50.32 - Chronic diastolic (congestive) heart failure Status: Acute Assessment and Plan: Chronic mild fluid overload and chronic diastolic CHF. Weight stable. Chest x-ray actually looks better than last admission in December. Continue curent tx (6) Coronary artery 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: Code(s): I25.810 - Atherosclerosis of coronary artery bypass graft(s) without angina pectoris Status: Acute Assessment and Plan: Long history of CAD, CABG and redo etc.. Last cardiac catheterization in 2019 showed his coronary circulation depended on his saphenous vein graft to the Left anterior descending. Patient has been stable on medical therapy and dual anti-platelet therapy. Not having any angina. Cont current tx (7) CKD stage 4 due to type 2 diabetes mellitus: Code(s): E11.22 - Type 2 diabetes mellitus with diabetic chronic kidney disease; N18.4 - Chronic kidney disease, stage 4 (severe) Status: Acute Assessment and Plan: Stable CKD, though patient is being prepped for eventual dialysis. Subjective Date/time seen: 01/22/22 12:39 Interval history: Follow-up for CAD, dizziness and abnormal EKG. Date of service 01/22/2022: No further dizziness. No chest pain. Feels good, hopes to go home. Review of Systems ENT: Reports vertigo and Denies epistaxis Cardiovascular: Cardiovascular: Denies chest pain, Reports pedal edema, Reports leg edema, Denies lightheadedness, Denies palpitations, Denies dyspnea and Reports dyspnea on exertion Respiratory: Respiratory: Denies cough, Denies dyspnea and Reports dyspnea on exertion Gastrointestinal: Gastrointestinal: Denies abdominal pain and Reports nausea Genitourinary: Genitourinary: Denies dysuria Musculoskeletal: Musculoskeletal: Reports no additional musculoskeletal complaints Integumentary/Breasts: Skin/Breast: Denies rash Neurologic: Denies confusion and Denies vertigo Psychiatric: Psychiatric: Reports anxiety and Denies confusion Endocrine: Endocrine: Denies palpitations Exam Narrative: Pleasant chatty older male in no distress Const: General: comfortable and no acute distress; No confusion Orientation/consciousness: No confusion HENMT: General nose exam: no epistaxis Eyes: EOM: EOMs intact bilaterally Neck: Neck: supple and no JVD Resp: Effort & Inspec
== END 2022-01-22 13:45 | disposition home or self-care (01) ==
LOC: ANHED 13:43 → ANHIMU 14:56
PROVIDERS: Admitting Provider Internal Medicine; Emergency Provider Emergency Medicine; PCP Family Medicine; Visit Provider Internal Medicine
DX: I13.0 Hypertensive heart and chronic kidney disease with heart failure and stage 1 through stage 4 chronic kidney disease, or unspecified chronic kidney disease (principal); R42 Dizziness and giddiness; E87.5 Hyperkalemia; N18.4 Chronic kidney disease, stage 4 (severe); I50.20 Unspecified systolic (congestive) heart failure; R94.31 Abnormal electrocardiogram [ECG] [EKG]; R77.8 Other specified abnormalities of plasma proteins; E03.9 Hypothyroidism, unspecified; E11.51 Type 2 diabetes mellitus with diabetic peripheral angiopathy without gangrene; E11.22 Type 2 diabetes mellitus with diabetic chronic kidney disease; E78.5 Hyperlipidemia, unspecified; G47.33 Obstructive sleep apnea (adult) (pediatric); J44.9 Chronic obstructive pulmonary disease, unspecified; I25.10 Atherosclerotic heart disease of native coronary artery without angina pectoris; K21.9 Gastro-esophageal reflux disease without esophagitis; M54.9 Dorsalgia, unspecified; D63.1 Anemia in chronic kidney disease; Z95.1 Presence of aortocoronary bypass graft; Z86.718 Personal history of other venous thrombosis and embolism; Z98.49 Cataract extraction status, unspecified eye; Z95.810 Presence of automatic (implantable) cardiac defibrillator; Z79.4 Long term (current) use of insulin; Z87.891 Personal history of nicotine dependence; Z91.11 Patient's noncompliance with dietary regimen; Z95.5 Presence of coronary angioplasty implant and graft; Z95.828 Presence of other vascular implants and grafts; Z79.02 Long term (current) use of antithrombotics/antiplatelets; Z79.899 Other long term (current) drug therapy
CPT/HCPCS: 36415; 71046; 80048; 80053; 81001; 82948; 83605; 84132; 84484; 85025; 85610; 85730; 86140; 87040; 87086; 93005; 96360; 96372; 99285; A9270; G0378; J1644; J1815; J7030

== ENCOUNTER 2022-02-07 13:15 | Outpatient (CLI) | payer MEDICARE, SELFPAY ==
[2022-02-07 13:48] LABS: Anion Gap 10 mmol/L (8-16); Blood Urea Nitrogen 75 mg/dL (9-20); Calcium 9.2 mg/dL (8.4-10.2); Carbon Dioxide 21 mmol/L (22-30); Chloride 111 mmol/L (98-107); Estimated Glomerular Filt Rate 24; Glucose 151 mg/dL (65-110); Potassium 4.7 mmol/L (3.4-5.0); Sodium 142 mmol/L (137-145)
== END 2022-02-07 13:16 | disposition home or self-care (01) ==
LOC: ANHLAB 13:17
PROVIDERS: PCP Family Medicine; Visit Provider Family Medicine
DX: E87.5 Hyperkalemia (principal)
CPT/HCPCS: 36415; 80048

== ENCOUNTER 2022-03-26 07:52 | Inpatient (IN) | payer MEDICARE, SELFPAY ==
[2022-03-26] VITALS (51 sets, daily range): BP systolic 94–150; BP diastolic 45–86; PULSE 76–92; RESP 11–36; TEMP 36–36.8; O2SAT 90–100; BMI 32.5
--- NOTE | ~2022-03-26 | XR_ITS ---
XR shoulder LT min 2V 03/30/2022 12:57 Indication: Shoulder pain. No injury. Procedure: 4 views left shoulder Comparison: No prior studies for comparison. Findings: No fracture, subluxation or dislocation. There is pulmonary edema. There is a left pleural effusion. Pacemaker overlies the left upper thorax. There is anatomic alignment. Impression: 1: No significant bone or joint abnormality. Reviewed, dictated and finalized at location B. Impression: 1: No significant bone or joint abnormality.
--- NOTE | ~2022-03-26 | XR_ITS ---
XR chest 2V DATE: 03/26/2022 08:31 INDICATION: Shortness of breath. History of congestive heart failure TECHNIQUE: AP and lateral views COMPARISON: 01/21/2022 AP and lateral chest FINDINGS: Left AICD pacemaker device with lead overlying right ventricular apex. Status post sternotomy, surgical clips overlying the heart mediastinum, likely due to coronary bypass graft surgery. Cardiomegaly. There is pulmonary vascular congestion and redistribution. There is prominence of minor fissure suggesting subpleural edema. Small right pleural effusion. There is a left lower lung infiltrate and/atelectasis, probable left pl eural effusion. Diffuse osteopenia. IMPRESSION: Cardiomegaly, congestive change, left lower lung infiltrate and/atelectasis, relatively s table since 01/21/2022 Reviewed, dictated and finalized at location A. IMPRESSION: Cardiomegaly, congestive change, left lower lung infiltrate and/ate lectasis, relatively stable since 01/21/2022
--- NOTE | 2022-03-26 07:58 | ECG_ITS ---
Measurements Intervals [place] Rate: 83 P: 17 IA: 154 QRS: 24 QRSD: 129 T: 168 QT: 394 QTc: 465 Interpretive Statements SINUS RHYTHM INCOMPLETE LEFT BUNDLE BRANCH BLOCK DELAYED PRECORDIAL R/S TRANSITION CONSIDER INFERIOR INFARCT, AGE INDETERMINATE BORDERLINE ST-T WAVE ABNORMALITY- LAT/HIGH LAT LEADS BASELINE ARTIFACT- I, II, AVR, AVL, AVF ABNORMAL ECG Electronically Signed On 03-26-2022 13:31:41 CDT by Leon Mckeon D.O.
[2022-03-26 08:40] LABS: Basophils Absolute Auto 0.1 K/mm3 (0.0-0.1); Basophils Percent Auto 0.6 % (0.2-1.2); Eosinophils Absolute Auto 0.3 K/mm3 (0-0.3); Eosinophils Percent Auto 3.4 % (0-4.4); Hematocrit 35.7 % (42.0-52.0); Hemoglobin 10.6 g/dL (14.0-18.0); Immature Granulocyte Absolute 0.03 K/mm3 (0.00-0.031); Immature Granulocyte Percent A 0.3 % (0-0.5); Lymphocytes Absolute Auto 0.93 K/mm3 (0.9-3.2); Lymphocytes Percent Auto 10.6 % (18.3-44.2); Mean Corpuscular HGB Conc 29.7 g/dl (32-36); Mean Corpuscular Volume 97.5 fl (80-100); Mean Platelet Volume 11.7 fl (7.4-10.4); Monocytes Absolute Auto 0.7 K/mm3 (0.1-0.6); Monocytes Percent Auto 7.8 % (2.6-8.5); Neutrophils Absolute Auto 6.8 K/mm3 (1.3-6.7); Neutrophils Percent Auto 77.3 % (45.5-73.1); Platelet Count Result 170 k/mm3 (150-375); Red Blood Count 3.66 M/mm3 (4.6-6.20); Red Cell Distribution Width 16.8 % (11.5-14.5); White Blood Count 8.8 K/mm3 (4.5-10.0)
[2022-03-26 08:45] LABS: INR 1.2; Prothrombin Time 15.1 Seconds (11.1-14.7)
[2022-03-26 08:51] LABS: Alanine Aminotransferase 13 U/L (6-50); Albumin Level 3.4 g/dL (3.5-5.1); Alkaline Phosphatase 129 U/L (38-126); Anion Gap 8 mmol/L (8-16); Aspartate Amino Transferase 23 U/L (17-59); Bilirubin,Total 0.3 mg/dL (0.2-1.3); Blood Urea Nitrogen 57 mg/dL (9-20); Calcium 8.5 mg/dL (8.4-10.2); Carbon Dioxide 22 mmol/L (22-30); Chloride 111 mmol/L (98-107); Estimated CRCL calculation 25 ml/min; Estimated Glomerular Filt Rate 25; Glucose 116 mg/dL (65-110); Potassium 4.3 mmol/L (3.4-5.0); Sodium 141 mmol/L (137-145)
[2022-03-26 09:00] LABS: NT Pro B Type Natriuretic Pept > 35000 pg/mL (5-100)
[2022-03-26 09:02] LABS: Burr Cells 1+ (NORMAL); Ovalocytes 1+ (NORMAL)
[2022-03-26 09:03] LABS: Acanthocytes 1+ (NORMAL); Anisocytosis 1+ (NORMAL); Poikilocytosis 1+ (NORMAL)
[2022-03-26] MEDS: FUROSEMIDE INJ 40 MG/4 ML VIAL IV PUSH ×2 (09:36→21:11)
--- NOTE | 2022-03-26 09:44 | ED.SOB ---
HPI - SOB/Dyspnea General Chief Complaint: Shortness of Breath/Dyspnea Stated Complaint: SOB Time Seen by Provider: 03/26/22 07:54 History of Present Illness HPI Narrative: Patient is a 76-year-old male who presents ER with increased shortness of breath. Patient has history of congestive heart failure. He reports compliance with his home Lasix. He also has chronic kidney disease. Reports he has had increased swelling in his lower extremities and he has no orthopnea and shortness of breath began today. No chest pain or chest pressure. He follows with Dr. Richmond for his cardiac care. Related Data Home Medications Medication Instructions Recorded Confirmed atorvastatin 80 mg tablet 80 mg PO DAILY 09/23/19 03/26/22 PreserVision AREDS-2 1 cap PO Q12H 10/20/20 03/26/22 aspirin 81 mg tablet,delayed 81 mg PO DAILY 01/19/21 03/26/22 release furosemide 40 mg tablet 40 mg PO Q12H tablet 01/19/21 03/26/22 Basaglar KwikPen U-100 Insulin 5 unit SUBCUT QAM 08/02/21 03/26/22 cholecalciferol (vitamin D3) 125 mcg PO HS 08/02/21 03/26/22 isosorbide mononitrate 60 mg PO DAILY 08/02/21 03/26/22 Allergies Allergy/AdvReac Type Severity Reaction Status Date / Time Penicillins Allergy Severe unknown Verified 03/26/22 10:16 Review of Systems Review of Systems: All systems reviewed & are unremarkable except as noted in HPI and below Constitutional: Constitutional: Denies chills, Denies fever(s) and Denies weakness ENT: Denies nasal congestion and Denies sore throat Cardiovascular: Cardiovascular: Denies chest pain, Denies rapid heart rate and Denies radiating jaw, neck or arm pain Respiratory: Respiratory: Denies cough and Reports dyspnea Comments: Orthopnea Gastrointestinal: Gastrointestinal: Denies abdominal pain, Denies nausea and Denies vomiting Musculoskeletal: Comments: Lower extremity edema Neurologic: Denies headache(s), Denies focal weakness and Denies numbness PMFSH Past Medical History Medical History Abdominal aortic aneurysm Arthritis Ascites Carotid stenosis, bilateral Carpal tunnel syndrome Chronic anemia Chronic kidney disease, stage 4 (severe) CKD stage 4 due to type 2 diabetes mellitus COPD (chronic obstructive pulmonary disease) Deep venous thrombosis Essential hypertension Gastroesophageal reflux disease Heart failure with reduced ejection fraction Echo in 07/2021: 1. Technically difficult study with limited views. 2. Moderately reduced LF function with an EF estimated at 30-35% with hypokinesis of the mid to basal anterolateral, inferior, anterior, and basal inferoseptal arroyo with relative sparing of the apex. 3. Mildly increased LV wall thickness. 4. Left atria is moderately enlarged. 5. Mild tricuspid valve regurgitation. 6. Severe pulmonary hypertension with an estimated pulmonary arterial systolic pressure of 65 mmHg. Hypothyroidism Insulin dependent type 2 diabetes mellitus Mixed hyperlipidemia Obstructive sleep apnea Intolerant to CPAP. Wears oxygen at nighttime. Pancreatitis Peripheral vascular disease Psoriasis Umbilical hernia without obstruction and without gangrene Vertigo Volume overload Surgical History Surgical History H/O abdominal surgery Revascularization to renal arteries and mesenteric artery H/O fasciotomy Right leg History of cataract extraction History of embolectomy Right leg History of stent insertion of renal artery History of tonsillectomy Hx of CABG Initially 5 vessel CABG and later on he had 1 that was redone now for those vessels are occluded he has collateral only the saphenous vein graft to the Left anterior descending is patent and otherwise his coronary arteries are occluded and all depend on the graft flow. Hx of cardiac catheterization Multiple times Presence of combination internal cardiac defibrillator (ICD) and pacemaker S/P carot
[2022-03-26 10:49] LABS: SARS-CoV-2 RNA PCR Negative
--- NOTE | 2022-03-26 11:20 | PC.NURSE ---
Patient report given to CISCO Lenz. All questions answered and care of patient transferred.
--- NOTE | 2022-03-26 11:20 | PC.NURSE ---
Patient report given to CISCO Lenz. All questions answered and care of patient transferred.
--- NOTE | 2022-03-26 14:04 | PC.NURSE ---
This patient, Jaime Morrell, was admitted to 3 [facility] Surg Room 307-01. Patient/family oriented to hospital policies and general routines including ID bracelet, bed and alarms, visiting hours, pain management, procedures, bathroom and other care routines, personal items, smoking policy, room service/diet, and visiting hours. Information on how to activate the Rapid Response Team has been discussed. Patient/Family are encouraged to report perceived risks to care and to ask questions if they do not understand what they are told or what they should do.
--- NOTE | 2022-03-26 14:31 | PM.IMHP ---
H&P: HPI History of Present Illness Date/Time: 03/26/22 14:31 patient is 76-year-old male with history of moderately severe systolic congestive heart failure with ejection fraction of 35% presented emergency department with complaint of shortness of breath, lower extremity swelling patient states he has not been very compliant with his diet and salt intake and suspect he has been taking too much salt and drinking fluids now presented with a shortness of breath lower extremity edema and orthopnea, from emergency department emergency depart patient was started on IV Lasix 40 mg b.i.d. will continue will monitor patient Is and Os placed the patient on low-salt diet, will have a PT OT evaluate the patient and further recommendation to follow. patient admitted as an observation status Chief Complaint: shortness of breath Review of Systems Review of Systems: All systems reviewed & are unremarkable except as noted in HPI and below PMFSH Past Medical History Medical History Abdominal aortic aneurysm Arthritis Ascites Carotid stenosis, bilateral Carpal tunnel syndrome Chronic anemia Chronic kidney disease, stage 4 (severe) CKD stage 4 due to type 2 diabetes mellitus COPD (chronic obstructive pulmonary disease) Deep venous thrombosis Essential hypertension Gastroesophageal reflux disease Heart failure with reduced ejection fraction Echo in 07/2021: 1. Technically difficult study with limited views. 2. Moderately reduced LF function with an EF estimated at 30-35% with hypokinesis of the mid to basal anterolateral, inferior, anterior, and basal inferoseptal arroyo with relative sparing of the apex. 3. Mildly increased LV wall thickness. 4. Left atria is moderately enlarged. 5. Mild tricuspid valve regurgitation. 6. Severe pulmonary hypertension with an estimated pulmonary arterial systolic pressure of 65 mmHg. Hypothyroidism Insulin dependent type 2 diabetes mellitus Mixed hyperlipidemia Obstructive sleep apnea Intolerant to CPAP. Wears oxygen at nighttime. Pancreatitis Peripheral vascular disease Psoriasis Umbilical hernia without obstruction and without gangrene Vertigo Volume overload Surgical History Surgical History H/O abdominal surgery Revascularization to renal arteries and mesenteric artery H/O fasciotomy Right leg History of cataract extraction History of embolectomy Right leg History of stent insertion of renal artery History of tonsillectomy Hx of CABG Initially 5 vessel CABG and later on he had 1 that was redone now for those vessels are occluded he has collateral only the saphenous vein graft to the Left anterior descending is patent and otherwise his coronary arteries are occluded and all depend on the graft flow. Hx of cardiac catheterization Multiple times Presence of combination internal cardiac defibrillator (ICD) and pacemaker S/P carotid endarterectomy Family History Family History Mother Hypertension Family history of coronary artery disease Father Acute myocardial infarction Family history of coronary artery disease Sibling Heart disease Hyperlipidemia Social History Social History Social History: Surrogate decision maker: Nephew. Code status: Full code. Smoking status: Former smoker Second hand tobacco smoke exposure: Yes Alcohol intake: never Substance use: never Substance use type: does not use Additional living arrangements comments: Lives in his own home in [place]. No children. 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 Spiritual care concerns: No Meds Home Medications and Allergies Home Medications Medication Instructions Recorded Confirmed Type atorvastatin 80 mg tablet 80
[2022-03-26 16:27] LABS: Glucose Point of Care 101 mg/dl (65-105)
[2022-03-27] VITALS (11 sets, daily range): BP systolic 133–138; BP diastolic 59–72; PULSE 68–80; RESP 16–20; TEMP 36–36.7; O2SAT 99–100
[2022-03-27 06:44] LABS: Hematocrit 37.1 % (42.0-52.0); Hemoglobin 10.9 g/dL (14.0-18.0); Mean Corpuscular HGB Conc 29.4 g/dl (32-36); Mean Corpuscular Hemoglobin 28.8 pg (26-34); Mean Corpuscular Volume 97.9 fl (80-100); Platelet Count Result 165 k/mm3 (150-375); Red Blood Count 3.79 M/mm3 (4.6-6.20); Red Cell Distribution Width 16.6 % (11.5-14.5); White Blood Count 6.8 K/mm3 (4.5-10.0)
[2022-03-27 06:56] LABS: Albumin Level 3.3 g/dL (3.5-5.1); Anion Gap 8 mmol/L (8-16); Blood Urea Nitrogen 55 mg/dL (9-20); Calcium 8.2 mg/dL (8.4-10.2); Carbon Dioxide 20 mmol/L (22-30); Chloride 111 mmol/L (98-107); Estimated CRCL calculation 27 ml/min; Estimated Glomerular Filt Rate 28; Glucose 91 mg/dL (65-110); Phosphorus 4.1 mg/dL (2.5-4.5); Potassium 4.7 mmol/L (3.4-5.0); Sodium 139 mmol/L (137-145)
[2022-03-27] MEDS: ENOXAPARIN 30 MG/0.3 ML SYRINGE SUB-Q (08:31)
[2022-03-27] MEDS: FUROSEMIDE INJ 40 MG/4 ML VIAL IV PUSH ×2 (08:31→20:37)
[2022-03-27 11:50] LABS: Glucose Point of Care 114 mg/dl (65-105)
[2022-03-27] MEDS: OPTI-GEN TAB 1 TABLET PO ×2 (12:58→20:37)
[2022-03-27] MEDS: ASPIRIN 81 MG ENTERIC TABLET PO (12:58)
[2022-03-27] MEDS: ISOSORBIDE MONONITRATE 60 MG TAB.ER.24H PO (12:58)
[2022-03-27] MEDS: CLOPIDOGREL BISULFATE 75 MG TABLET PO (12:58)
[2022-03-27] MEDS: ATORVASTATIN 40 MG TABLET 80 MG PO (12:58)
[2022-03-27] MEDS: carvediloL 6.25 MG TABLET PO ×2 (12:59→20:35)
--- NOTE | 2022-03-27 16:23 | PM.IMPN ---
Progress Note: A&P Assessment and Plan (1) Acute on chronic systolic (congestive) heart failure: Code(s): I50.23 - Acute on chronic systolic (congestive) heart failure Status: Acute Assessment and Plan: patient is 76-year-old male with history of moderately severe systolic congestive heart failure with ejection fraction of 35% presented emergency department with complaint of shortness of breath, lower extremity swelling patient states he has not been very compliant with his diet and salt intake and suspect he has been taking too much salt and drinking fluids now presented with a shortness of breath lower extremity edema and orthopnea, from emergency department emergency depart patient was started on IV Lasix 40 mg b.i.d. will continue will monitor patient Is and Os placed the patient on low-salt diet, repeat cardiac echo, will have a PT OT evaluate the patient and further recommendation to follow. 03/27/2022 interval history: today patient states feeling much better not a short of breath and lower extremity swelling arrived improving, however patient urine output low, will place the patient on fluid restriction, will continue Lasix IV 40 mg b.i.d. will continue to monitor will have a PT OT evaluate the patient and further recommendation to follow. (2) Essential hypertension: Code(s): I10 - Essential (primary) hypertension Status: Chronic Assessment and Plan: will continue home regimen and monitor (3) Hypothyroidism: Code(s): E03.9 - Hypothyroidism, unspecified Status: Acute Assessment and Plan: will continue home levothyroxine (4) CKD stage 4 due to type 2 diabetes mellitus: Code(s): E11.22 - Type 2 diabetes mellitus with diabetic chronic kidney disease; N18.4 - Chronic kidney disease, stage 4 (severe) Status: Acute Assessment and Plan: patient with stage 4 chronic kidney disease now being diuresed will closely monitor patient kidney function Subjective Date/time seen: 03/27/22 16:23 HPI: patient is 76-year-old male with history of moderately severe systolic congestive heart failure with ejection fraction of 35% presented emergency department with complaint of shortness of breath, lower extremity swelling patient states he has not been very compliant with his diet and salt intake and suspect he has been taking too much salt and drinking fluids now presented with a shortness of breath lower extremity edema and orthopnea, from emergency department emergency depart patient was started on IV Lasix 40 mg b.i.d. will continue will monitor patient Is and Os placed the patient on low-salt diet, repeat cardiac echo, will have a PT OT evaluate the patient and further recommendation to follow. 03/27/2022 interval history: today patient states feeling much better not a short of breath and lower extremity swelling arrived improving, however patient urine output low, will place the patient on fluid restriction, will continue Lasix IV 40 mg b.i.d. will continue to monitor will have a PT OT evaluate the patient and further recommendation to follow. Review of Systems Review of Systems: All systems reviewed & are unremarkable except as noted in HPI and below Exam Narrative: moderately obese Patient is comfortable, NAD HEENT: eyes are clear and none icteric LUNGS: bilateral fair air entry with rales and rhonchi HEART: RR S1S2 ABD: BS+, Soft and nontender Lower extremities: bilateral lower extremity edema SKIN: nonjaundiced Neuro: grossly intact. Objective Data Vital Signs Vital Signs: Vital Signs - 24 hr 03/26/22 18:50 03/26/22 20:00 03/26/22 20:05 Temperature 97.8 F Pulse Rate 77 Respiratory Rate 16 Blood Pressure 136/86 Pulse Oximetry 100 100 99 03/26/22 21:54 03/27/22 00:00 03/27/22 04:00 Temperature 96.8 F L Pulse Rate 77 78 75 Respiratory Rate 20 Blood Pressure 140/63 Pulse Oximetry 100 03/27/22 06:00 03/27/22 0
[2022-03-27 16:57] LABS: Glucose Point of Care 112 mg/dl (65-105)
[2022-03-27] MEDS: CHOLECALCIFEROL 1,000 UNITS TABLET 5000 UNITS PO (20:36)
[2022-03-27 21:33] LABS: Glucose Point of Care 101 mg/dl (65-105)
[2022-03-28] VITALS (12 sets, daily range): BP systolic 122–135; BP diastolic 51–60; PULSE 66–83; RESP 18–20; TEMP 35.8–36.2; O2SAT 97–100
[2022-03-28] MEDS: LEVOTHYROXINE SODIUM 50 MCG TABLET PO (05:33)
[2022-03-28 06:22] LABS: Hematocrit 35.4 % (42.0-52.0); Hemoglobin 10.5 g/dL (14.0-18.0); Mean Corpuscular HGB Conc 29.7 g/dl (32-36); Mean Corpuscular Hemoglobin 28.8 pg (26-34); Mean Platelet Volume 11.8 fl (7.4-10.4); Platelet Count Result 173 k/mm3 (150-375); Red Blood Count 3.65 M/mm3 (4.6-6.20); Red Cell Distribution Width 16.4 % (11.5-14.5); White Blood Count 6.5 K/mm3 (4.5-10.0)
[2022-03-28 06:33] LABS: Albumin Level 3.3 g/dL (3.5-5.1); Anion Gap 8 mmol/L (8-16); Blood Urea Nitrogen 55 mg/dL (9-20); Calcium 8.6 mg/dL (8.4-10.2); Carbon Dioxide 25 mmol/L (22-30); Chloride 106 mmol/L (98-107); Estimated CRCL calculation 27 ml/min; Estimated Glomerular Filt Rate 28; Glucose 91 mg/dL (65-110); Phosphorus 4.1 mg/dL (2.5-4.5); Potassium 4.3 mmol/L (3.4-5.0); Sodium 139 mmol/L (137-145)
[2022-03-28 07:42] LABS: Glucose Point of Care 82 mg/dl (65-105)
[2022-03-28] MEDS: OPTI-GEN TAB 1 TABLET PO ×2 (08:37→21:22)
[2022-03-28] MEDS: ASPIRIN 81 MG ENTERIC TABLET PO (08:37)
[2022-03-28] MEDS: FUROSEMIDE INJ 40 MG/4 ML VIAL IV PUSH ×2 (08:37→21:22)
[2022-03-28] MEDS: ATORVASTATIN 40 MG TABLET 80 MG PO (08:37)
[2022-03-28] MEDS: CLOPIDOGREL BISULFATE 75 MG TABLET PO (08:37)
[2022-03-28] MEDS: ENOXAPARIN 30 MG/0.3 ML SYRINGE SUB-Q (08:37)
[2022-03-28] MEDS: carvediloL 6.25 MG TABLET PO (08:37)
[2022-03-28] MEDS: ISOSORBIDE MONONITRATE 60 MG TAB.ER.24H PO (08:37)
--- NOTE | 2022-03-28 11:42 | ECG_ITS ---
Measurements Intervals [place] Rate: 66 P: 15 NC: 163 QRS: 20 QRSD: 124 T: 179 QT: 439 QTc: 460 Interpretive Statements SINUS RHYTHM INCOMPLETE LEFT BUNDLE BRANCH BLOCK CONSIDER INFERIOR INFARCT, AGE INDETERMINATE ST-T WAVE ABNORMALITY IN ANTEROLAT/HIGH LAT LEADS- CONSIDER ISCHEMIA BASELINE ARTIFACT- V4 ABNORMAL ECG Electronically Signed On 03-28-2022 12:03:54 CDT by Leon Mckeon D.O.
[2022-03-28 11:46] LABS: Glucose Point of Care 109 mg/dl (65-105)
--- NOTE | 2022-03-28 12:48 | PM.IMPN ---
Progress Note: A&P Assessment and Plan (1) Acute on chronic systolic (congestive) heart failure: Code(s): I50.23 - Acute on chronic systolic (congestive) heart failure Status: Acute Assessment and Plan: patient is 76-year-old male with history of moderately severe systolic congestive heart failure with ejection fraction of 35% presented emergency department with complaint of shortness of breath, lower extremity swelling patient states he has not been very compliant with his diet and salt intake and suspect he has been taking too much salt and drinking fluids now presented with a shortness of breath lower extremity edema and orthopnea, from emergency department emergency depart patient was started on IV Lasix 40 mg b.i.d. will continue will monitor patient Is and Os placed the patient on low-salt diet, repeat cardiac echo, will have a PT OT evaluate the patient and further recommendation to follow. 03/27/2022 interval history: today patient states feeling much better not a short of breath and lower extremity swelling arrived improving, however patient urine output low, will place the patient on fluid restriction, will continue Lasix IV 40 mg b.i.d. will continue to monitor will have a PT OT evaluate the patient and further recommendation to follow. 03/28/2022 interval history: today patient states feeling much better not a short of breath and lower extremity swelling have improved, patient was drinking too much water, will place the patient on fluid restriction, will continue Lasix IV 40 mg b.i.d. will continue to monitor will have a PT OT evaluate the patient and further recommendation to follow. will monitor patient 1 more this patient clinically symptoms are improving possibly discharge patient home tomorrow (2) Essential hypertension: Code(s): I10 - Essential (primary) hypertension Status: Chronic Assessment and Plan: will continue home regimen and monitor (3) Hypothyroidism: Code(s): E03.9 - Hypothyroidism, unspecified Status: Acute Assessment and Plan: will continue home levothyroxine (4) CKD stage 4 due to type 2 diabetes mellitus: Code(s): E11.22 - Type 2 diabetes mellitus with diabetic chronic kidney disease; N18.4 - Chronic kidney disease, stage 4 (severe) Status: Acute Assessment and Plan: patient with stage 4 chronic kidney disease now being diuresed will closely monitor patient kidney function Subjective Date/time seen: 03/28/22 12:48 patient is 76-year-old male with history of moderately severe systolic congestive heart failure with ejection fraction of 35% presented emergency department with complaint of shortness of breath, lower extremity swelling patient states he has not been very compliant with his diet and salt intake and suspect he has been taking too much salt and drinking fluids now presented with a shortness of breath lower extremity edema and orthopnea, from emergency department emergency depart patient was started on IV Lasix 40 mg b.i.d. will continue will monitor patient Is and Os placed the patient on low-salt diet, repeat cardiac echo, will have a PT OT evaluate the patient and further recommendation to follow. 03/28/2022 interval history: today patient states feeling much better not a short of breath and lower extremity swelling have improved, patient was drinking too much water, will place the patient on fluid restriction, will continue Lasix IV 40 mg b.i.d. will continue to monitor will have a PT OT evaluate the patient and further recommendation to follow. will monitor patient 1 more this patient clinically symptoms are improving possibly discharge patient home tomorrow Review of Systems Review of Systems: All systems reviewed & are unremarkable except as noted in HPI and below Exam Narrative: moderately obese Patient is comfortable, NAD HEENT: eyes are clear and none icteric LUNGS: bilateral fair air entry with rales
--- NOTE | 2022-03-28 15:36 | PM.CNCAR ---
Assessment and Plan Assessment and plan (1) Nonsustained ventricular tachycardia: Code(s): I47.2 - Ventricular tachycardia Status: Acute Assessment and Plan: Some nonsustained ventricular tachycardia noted, as well as runs of idioventricular rhythm. Frequent PVCs. Asymptomatic. Has an ICD Potassium is normal The idioventricular rhythm which occurred at 3:30 a.m. in the morning may be related to his sleep apnea On carvedilol; will increase the dose for his ventricular arrhythmias and cardiomyopathy. (2) Acute on chronic combined systolic and diastolic CHF (congestive heart failure): Code(s): I50.43 - Acute on chronic combined systolic (congestive) and diastolic (congestive) heart failure Status: Acute Assessment and Plan: Acute on chronic systolic and diastolic CHF improving. Still volume overloaded, likely increase the furosemide to 80 mg b.i.d. for week on discharge then back to 40 mg b.i.d. Has appointment with Dr. Richmond on April 11. (3) Ischemic cardiomyopathy: Code(s): I25.5 - Ischemic cardiomyopathy Status: Acute Assessment and Plan: EF 30-35%. Continue carvedilol but increase the dose to 12.5 mg b.i.d.. Had hyperkalemia on Entresto, currently not on an ARB or FLORENCIO inhibitor. Will need to review office records regarding this, and perhaps try something at a lower dose Patient's renal function may be too advanced for any CHF improvement with Farxiga or Jardiance. (4) Obstructive sleep apnea: Code(s): G47.33 - Obstructive sleep apnea (adult) (pediatric) Status: Acute Assessment and Plan: Intolerant to CPAP. Additional Plan History of Present Illness History of Present Illness Consult date/time: 03/28/22 15:36 Requesting physician: Antoine Freedman MD Consult reason: Other (ventricular tachycardia) Reason For Visit: CHF Exacerbation Narrative: Mr. Jaime Morrell is a 76-year-old male whom we were asked to see at the request of Dr. Freedman for advice and opinion regarding his runs of nonsustained ventricular tachycardia, in consultation. Mr. Morrell is followed by Dr. 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 Apparently when he had cardiac catheterization at [facility] in 2019 his entire coronary circulation was dependent on a saphenous vein graft to the Left anterior descending. He also has peripheral vascular disease, chronic systolic and diastolic congestive heart failure (EF 30-35%), chronic kidney disease, ICD, and history orthostasis. He does have sleep apnea but is intolerant to CPAP, wearing oxygen at night at home. His dispute resolution specialist is anticipating that he will need to go on dialysis. He was admitted in January for vertigo and found to be hyperkalemic, and eventually had his Entresto was discontinued. The patient was admitted on March 26 with shortness of breath due to acute on chronic diastolic heart failure. He admitted to being noncompliant with diet and salt intake. He is fairly compliant with his medications though admits to an occasional forgotten pill. His breathing has improved with IV Lasix and may be discharged tomorrow. He denies any anginal chest pain, dizziness, palpitations, or syncope. He continues to have significant edema although that has improved. Telemetry shows occasional to frequent PVCs and ventricular couplets. He has had a 5 beat and a 7 beat run of ventricular tachycardia. Last night around 330 he had some runs of idioventricular rhythm, heart rates in the 70s. Review of Systems Constitutional: Constitutional: Reports fatigue Eyes: Eyes: Reports no additional eye complaints ENT: Denies epistaxis Cardiovascular: Cardiovascular: Reports chest pain (Chest pain with coughing spells), Reports pedal edema, Reports leg edema, Denies lightheadedness and Denies palpitations R
[2022-03-28 16:34] LABS: Glucose Point of Care 124 mg/dl (65-105)
[2022-03-28 21:21] LABS: Glucose Point of Care 130 mg/dl (65-105)
[2022-03-28] MEDS: carvediloL 12.5 MG TABLET PO (21:21)
[2022-03-28] MEDS: CHOLECALCIFEROL 1,000 UNITS TABLET 5000 UNITS PO (21:22)
[2022-03-29] VITALS (11 sets, daily range): BP systolic 102–114; BP diastolic 47–86; PULSE 66–86; RESP 18–20; TEMP 36.5–37.3; O2SAT 91–98
[2022-03-29] MEDS: LEVOTHYROXINE SODIUM 50 MCG TABLET PO (05:33)
[2022-03-29 06:15] LABS: Hematocrit 32.4 % (42.0-52.0); Hemoglobin 9.4 g/dL (14.0-18.0); Mean Corpuscular Hemoglobin 28.7 pg (26-34); Mean Corpuscular Volume 99.1 fl (80-100); Mean Platelet Volume 11.4 fl (7.4-10.4); Platelet Count Result 144 k/mm3 (150-375); Red Blood Count 3.27 M/mm3 (4.6-6.20); Red Cell Distribution Width 16.3 % (11.5-14.5); White Blood Count 6.3 K/mm3 (4.5-10.0)
[2022-03-29 06:26] LABS: Anion Gap 10 mmol/L (8-16); Blood Urea Nitrogen 54 mg/dL (9-20); Calcium 8.4 mg/dL (8.4-10.2); Carbon Dioxide 25 mmol/L (22-30); Chloride 106 mmol/L (98-107); Estimated CRCL calculation 29 ml/min; Estimated Glomerular Filt Rate 29; Glucose 94 mg/dL (65-110); Phosphorus 4.3 mg/dL (2.5-4.5); Potassium 4.1 mmol/L (3.4-5.0); Sodium 141 mmol/L (137-145)
[2022-03-29 07:44] LABS: Glucose Point of Care 86 mg/dl (65-105)
[2022-03-29] MEDS: OPTI-GEN TAB 1 TABLET PO ×2 (08:48→20:33)
[2022-03-29] MEDS: CLOPIDOGREL BISULFATE 75 MG TABLET PO (08:48)
[2022-03-29] MEDS: ISOSORBIDE MONONITRATE 60 MG TAB.ER.24H PO (08:48)
[2022-03-29] MEDS: ENOXAPARIN 30 MG/0.3 ML SYRINGE SUB-Q (08:48)
[2022-03-29] MEDS: ATORVASTATIN 40 MG TABLET 80 MG PO (08:48)
[2022-03-29] MEDS: carvediloL 12.5 MG TABLET PO ×2 (08:48→20:33)
[2022-03-29] MEDS: FUROSEMIDE INJ 40 MG/4 ML VIAL IV PUSH ×2 (08:48→20:34)
[2022-03-29] MEDS: ASPIRIN 81 MG ENTERIC TABLET PO (08:48)
--- NOTE | 2022-03-29 09:59 | PM.PNCARD ---
Progress Note: A&P Additional Plan 76-year-old man with: Longstanding coronary disease ischemic cardiomyopathy presents to the hospital couple of days ago with decompensated CHF. He is improving with diuresis. During the previous admission his Entresto and spironolactone were discontinued because of hyperkalemia. I am going to try resuming Entresto at a lower dosage without the LTAC tone and hopefully his potassium will tolerate this. Without any effective vaso dilator CHF will become much more difficult to treat. Yehuda Richmond MD [facility] Subjective Date/time seen: Date of service 03/29/22 09:59 Interval history: Follow-up visit in this 76-year-old man with: Longstanding coronary artery disease with surgical revascularization details dictated previous notes. Only remaining coronary circulation remains a an old vein graft to the LAD. Patient enters the hospital with an episode of biventricular CHF. Has had recent admissions with recurrences of this. Reports improvement this morning edema is with resolving slowly in the lower extremities they are less painful no longer short of breath Exam Const: General: comfortable and no acute distress HENMT: Mouth: Yes moist mucous membranes Eyes: Sclera: sclerae normal Pupils: Equal, round and reactive pupils present Neck: Neck: supple Resp: Effort & Inspection: normal respiratory effort Other: Scant basilar rales are still noted Cardio: Rate: regular rate Rhythm: regular rhythm GI: GI Palp: Yes Soft to palpation Auscultation: normal bowel sounds Skin: General skin exam: normal color Neuro: Cognition (Neuro): normal cognition Extrem: Other: Moderate edema to the calf bilaterally symmetrical Objective Data Vital Signs Vital Signs: Vital Signs - 24 hr 03/28/22 12:00 03/28/22 14:00 03/28/22 16:00 Temperature 35.8 C L Pulse Rate 66 78 83 Respiratory Rate 20 Blood Pressure 132/51 L Pulse Oximetry 100 03/28/22 20:00 03/28/22 20:37 03/28/22 21:21 Temperature Pulse Rate 79 76 67 Respiratory Rate Blood Pressure Pulse Oximetry 97 03/28/22 21:39 03/29/22 00:00 03/29/22 04:00 Temperature 36.2 C L Pulse Rate 74 73 70 Respiratory Rate 18 Blood Pressure 122/59 L Pulse Oximetry 98 03/29/22 06:00 03/29/22 08:48 Temperature 36.5 C Pulse Rate 69 75 Respiratory Rate 18 Blood Pressure 114/47 L Pulse Oximetry 98 Intake/Output Intake/Output: Intake & Output 03/26/22 03/27/22 03/28/22 03/29/22 23:59 23:59 23:59 23:59 Intake Total 240 2090 840 480 Output Total 0 1215 1275 Balance 240 875 -435 480 Meds/Results Medications: Active Medications Generic Name Dose Route Start Last Admin Trade Name Freq PRN Reason Stop Dose Admin Acetaminophen 650 mg 03/26/22 10:08 Acetaminophen 325 Mg Tablet PO Q4H PRN Mild Pain (1-3) or Fever Hydrocodone Bitart/Acetaminophen 1 tab 03/26/22 10:08 Hydrocodone/Acetaminophen (*Crx) 5-325 Mg Tablet PO Q4H PRN Pain Rated 4-6 Aspirin 81 mg 03/27/22 10:10 03/29/22 08:48 Aspirin 81 Mg Enteric Tablet PO 81 mg DAILY JEFF Administration Atorvastatin Calcium 80 mg 03/27/22 10:10 03/29/22 08:48 Atorvastatin 40 Mg Tablet PO 80 mg DAILY JEFF Administration Carvedilol 12.5 mg 03/28/22 21:00 03/29/22 08:48 Carvedilol 12.5 Mg Tablet PO 12.5 mg Q12HR JEFF Administration Clopidogrel Bisulfate 75 mg 03/27/22 10:10 03/29/22 08:48 Clopidogrel Bisulfate 75 Mg Tablet PO 75 mg DAILY JEFF Administration Dextrose 12.5 gm 03/27/22 09:46 Dextrose 50% 25 Gm/50 Ml Syringe IV PUSH PRN PRN Hypoglycemia Protocol Enoxaparin Sodium 30 mg 03/27/22 09:00 03/29/22 08:48 Enoxaparin 30 Mg/0.3 Ml Syringe SUB-Q 30 mg DAILY JEFF Administration Furosemide 40 mg 03/26/22 21:00 03/29/22 08:48 Furosemide Inj 40 Mg/4 Ml Vial IV PUSH 40 mg Q12HR JEFF Administration Glucagon 1 mg 03/27/22 09:46 Gluca
[2022-03-29] MEDS: SACUBITRIL/VALSARTAN 24-26 MG TABLET 1 TAB PO ×2 (10:26→20:34)
[2022-03-29 11:23] LABS: Glucose Point of Care 112 mg/dl (65-105)
--- NOTE | 2022-03-29 11:54 | PM.IMPN ---
Progress Note: A&P Assessment and Plan (1) Acute on chronic systolic (congestive) heart failure: Code(s): I50.23 - Acute on chronic systolic (congestive) heart failure Status: Acute Assessment and Plan: patient is 76-year-old male with history of moderately severe systolic congestive heart failure with ejection fraction of 35% presented emergency department with complaint of shortness of breath, lower extremity swelling patient states he has not been very compliant with his diet and salt intake and suspect he has been taking too much salt and drinking fluids now presented with a shortness of breath lower extremity edema and orthopnea, from emergency department emergency depart patient was started on IV Lasix 40 mg b.i.d. will continue will monitor patient Is and Os placed the patient on low-salt diet, repeat cardiac echo, will have a PT OT evaluate the patient and further recommendation to follow. 03/27/2022 interval history: today patient states feeling much better not a short of breath and lower extremity swelling arrived improving, however patient urine output low, will place the patient on fluid restriction, will continue Lasix IV 40 mg b.i.d. will continue to monitor will have a PT OT evaluate the patient and further recommendation to follow. 03/28/2022 interval history: today patient states feeling much better not a short of breath and lower extremity swelling have improved, patient was drinking too much water, will place the patient on fluid restriction, will continue Lasix IV 40 mg b.i.d. will continue to monitor will have a PT OT evaluate the patient and further recommendation to follow. will monitor patient 1 more this patient clinically symptoms are improving possibly discharge patient home tomorrow (2) Essential hypertension: Code(s): I10 - Essential (primary) hypertension Status: Chronic Assessment and Plan: will continue home regimen and monitor (3) Hypothyroidism: Code(s): E03.9 - Hypothyroidism, unspecified Status: Acute Assessment and Plan: will continue home levothyroxine (4) CKD stage 4 due to type 2 diabetes mellitus: Code(s): E11.22 - Type 2 diabetes mellitus with diabetic chronic kidney disease; N18.4 - Chronic kidney disease, stage 4 (severe) Status: Acute Assessment and Plan: patient with stage 4 chronic kidney disease now being diuresed will closely monitor patient kidney function Subjective Date/time seen: 03/29/22 11:54 Feeling better today. Currently on 2liters. No significant worsening shortness of breath Review of Systems Review of Systems: All systems reviewed & are unremarkable except as noted in HPI and below Exam Narrative: moderately obese Patient is comfortable, NAD HEENT: eyes are clear and none icteric LUNGS: bilateral fair air entry with rales and rhonchi HEART: RR S1S2 ABD: BS+, Soft and nontender Lower extremities: bilateral lower extremity edema SKIN: nonjaundiced Neuro: grossly intact. Objective Data Vital Signs Vital Signs: Vital Signs - 24 hr 03/28/22 12:00 03/28/22 14:00 03/28/22 16:00 Temperature 96.5 F L Pulse Rate 66 78 83 Respiratory Rate 20 Blood Pressure 132/51 L Pulse Oximetry 100 03/28/22 20:00 03/28/22 20:37 03/28/22 21:21 Temperature Pulse Rate 79 76 67 Respiratory Rate Blood Pressure Pulse Oximetry 97 03/28/22 21:39 03/29/22 00:00 03/29/22 04:00 Temperature 97.1 F L Pulse Rate 74 73 70 Respiratory Rate 18 Blood Pressure 122/59 L Pulse Oximetry 98 03/29/22 06:00 03/29/22 08:00 03/29/22 08:48 Temperature 97.7 F Pulse Rate 69 68 75 Respiratory Rate 18 Blood Pressure 114/47 L Pulse Oximetry 98 Intake/Output Intake/Output: Intake & Output 03/26/22 03/27/22 03/28/22 03/29/22 23:59 23:59 23:59 23:59 Intake Total 240 2090 840 480 Output Total 0 1215 1275 Balance 240 875 -435 480 Meds/Results Medicatio
[2022-03-29 16:07] LABS: Glucose Point of Care 131 mg/dl (65-105)
[2022-03-29] MEDS: CHOLECALCIFEROL 1,000 UNITS TABLET 5000 UNITS PO (20:34)
[2022-03-29 21:37] LABS: Glucose Point of Care 157 mg/dl (65-105)
[2022-03-30] VITALS (10 sets, daily range): BP systolic 103–115; BP diastolic 45–53; PULSE 54–81; RESP 20–22; TEMP 36.5–36.6; O2SAT 95–100
[2022-03-30] MEDS: ACETAMINOPHEN 325 MG TABLET 650 MG PO (01:22)
[2022-03-30] MEDS: LEVOTHYROXINE SODIUM 50 MCG TABLET PO (05:58)
[2022-03-30 06:49] LABS: Hematocrit 30.5 % (42.0-52.0); Mean Corpuscular HGB Conc 29.5 g/dl (32-36); Mean Corpuscular Hemoglobin 29.3 pg (26-34); Mean Corpuscular Volume 99.3 fl (80-100); Platelet Count Result 145 k/mm3 (150-375); Red Blood Count 3.07 M/mm3 (4.6-6.20); Red Cell Distribution Width 16.5 % (11.5-14.5); White Blood Count 7.5 K/mm3 (4.5-10.0)
[2022-03-30 06:58] LABS: Albumin Level 2.9 g/dL (3.5-5.1); Anion Gap 8 mmol/L (8-16); Blood Urea Nitrogen 58 mg/dL (9-20); Calcium 8.3 mg/dL (8.4-10.2); Carbon Dioxide 23 mmol/L (22-30); Chloride 106 mmol/L (98-107); Estimated CRCL calculation 25 ml/min; Estimated Glomerular Filt Rate 25; Glucose 110 mg/dL (65-110); Phosphorus 3.8 mg/dL (2.5-4.5); Potassium 4.4 mmol/L (3.4-5.0); Sodium 137 mmol/L (137-145)
[2022-03-30 07:33] LABS: Glucose Point of Care 107 mg/dl (65-105)
[2022-03-30] MEDS: INSULIN GLARGINE (*BKC) 100 UNITS/ML SUB-Q (10:54)
[2022-03-30] MEDS: OPTI-GEN TAB 1 TABLET PO ×2 (11:03→20:47)
[2022-03-30] MEDS: ISOSORBIDE MONONITRATE 60 MG TAB.ER.24H PO (11:03)
[2022-03-30] MEDS: CLOPIDOGREL BISULFATE 75 MG TABLET PO (11:03)
[2022-03-30] MEDS: ASPIRIN 81 MG ENTERIC TABLET PO (11:03)
[2022-03-30] MEDS: FUROSEMIDE INJ 40 MG/4 ML VIAL IV PUSH (11:04)
[2022-03-30] MEDS: carvediloL 12.5 MG TABLET PO ×2 (11:04→20:46)
[2022-03-30] MEDS: ATORVASTATIN 40 MG TABLET 80 MG PO (11:04)
[2022-03-30] MEDS: SACUBITRIL/VALSARTAN 24-26 MG TABLET 1 TAB PO ×2 (11:04→20:47)
[2022-03-30] MEDS: ENOXAPARIN 30 MG/0.3 ML SYRINGE SUB-Q (11:05)
[2022-03-30 11:45] LABS: Glucose Point of Care 148 mg/dl (65-105)
--- NOTE | 2022-03-30 12:52 | PM.DS ---
DS: Admitting Diagnosis Discharge Date 03/30/22 Admitting Diagnosis chf DS: Discharge Diagnosis Discharge Diagnosis (1) Acute on chronic systolic (congestive) heart failure: Code(s): I50.23 - Acute on chronic systolic (congestive) heart failure Status: Acute Assessment and Plan: adjusted cardiac meds fu cardiology (2) Essential hypertension: Code(s): I10 - Essential (primary) hypertension Status: Chronic Assessment and Plan: will continue home regimen and monitor (3) Hypothyroidism: Code(s): E03.9 - Hypothyroidism, unspecified Status: Acute Assessment and Plan: will continue home levothyroxine (4) CKD stage 4 due to type 2 diabetes mellitus: Code(s): E11.22 - Type 2 diabetes mellitus with diabetic chronic kidney disease; N18.4 - Chronic kidney disease, stage 4 (severe) Status: Acute Assessment and Plan: patient with stage 4 chronic kidney disease now being diuresed will closely monitor patient kidney function DS: Summary Hospital Course Hospital Course: see dc diagnosis Time Spent with Patient Time attestation: Total time spent providing and/or coordinating discharge services: Exam Narrative: moderately obese Patient is comfortable, NAD HEENT: eyes are clear and none icteric LUNGS: bilateral fair air entry with rales and rhonchi HEART: RR S1S2 ABD: BS+, Soft and nontender Lower extremities: bilateral lower extremity edema SKIN: nonjaundiced Neuro: grossly intact. DS: Data Data Completed and Pending Labs on day of discharge: Labs from last 24 hours 03/30/22 03/30/22 03/30/22 11:26 07:26 06:05 WBC RBC Hgb Hct MCV MCH MCHC RDW Plt Count MPV Sodium 137 Potassium 4.4 Chloride 106 Carbon Dioxide 23 Anion Gap 8 BUN 58 H Creatinine 2.50 H Estim Creat Clear Calc 25 Estimated GFR 25 L Glucose 110 POC Capillary Glucose 148 H 107 H Calcium 8.3 L Phosphorus 3.8 Albumin 2.9 L 03/30/22 03/29/22 03/29/22 06:05 20:25 16:04 WBC 7.5 RBC 3.07 L Hgb 9.0 L Hct 30.5 L MCV 99.3 MCH 29.3 MCHC 29.5 L RDW 16.5 H Plt Count 145 L MPV 12.0 H Sodium Potassium Chloride Carbon Dioxide Anion Gap BUN Creatinine Estim Creat Clear Calc Estimated GFR Glucose POC Capillary Glucose 157 H 131 H Calcium Phosphorus Albumin Discharge Plan Discharge Attending physician on discharge: Yehuda Barr Consulting providers: Yehuda Richmond Discharging Clinician: Yehuda Barr Patient Disposition: Home, Self-Care Activity: no preference Diet: as tolerated Discharge Instructions: Per Care Coordination Patient has been accept ed to have [facility] for RN, PT, OT [phone] Patient Instructions: Antibiotic Form, Clopidogrel (By mouth), Heart Failure (DC) Stand Alone Forms: General Discharge Information Follow-up/Referrals: Rita Gates MD [Primary Care Provider] - eYhuda Richmond MD [Physician] - Discharge Medications: New carvedilol [Coreg] 12.5 mg Tablet 12.5 mg PO Q12HR 30 Days Qty: 60 RF: 0 Entresto 24-26 mg Tablet 1 tab PO Q12HR 30 Days Qty: 60 RF: 0 Continued aspirin [Adult Aspirin Regimen] 81 mg tablet,delayed release (DR/EC) 81 mg PO DAILY RF: 0 atorvastatin [Lipitor] 80 mg tablet 80 mg PO DAILY RF: 0 isosorbide mononitrate 60 mg tablet extended release 24 hr 60 mg PO DAILY RF: 0 cholecalciferol (vitamin D3) 125 mcg (5,000 unit) Capsule 125 mcg PO HS RF: 0 Basaglar KwikPen U-100 Insulin 100 unit/mL (3 mL) insulin pen 5 unit SUBCUT QAM RF: 0 PreserVision AREDS-2 [id number] [id number]-zz-mg Capsule 1 cap PO Q12H RF: 0 furosemide 40 mg tablet 40 mg PO Q12H RF: 0 levothyroxine 50 mcg tablet 50 mcg PO DAILY Qty: 90 RF: 2 clopidogrel 75 mg tablet 7
--- NOTE | 2022-03-30 13:05 | PCOTNOTE ---
Attempted to see patient this pm, however patient just got back to bed from testing.
--- NOTE | 2022-03-30 16:23 | PM.PNCARD ---
Progress Note: A&P Assessment and Plan (1) Nonsustained ventricular tachycardia: Code(s): I47.2 - Ventricular tachycardia Status: Acute Assessment and Plan: Some nonsustained ventricular tachycardia noted, as well as runs of idioventricular rhythm. Frequent PVCs. Asymptomatic. Has an ICD Potassium is normal The idioventricular rhythm which occurred at 3:30 a.m. in the morning may be related to his sleep apnea On carvedilol; will increase the dose for his ventricular arrhythmias and cardiomyopathy. (2) Acute on chronic combined systolic and diastolic CHF (congestive heart failure): Code(s): I50.43 - Acute on chronic combined systolic (congestive) and diastolic (congestive) heart failure Status: Acute Assessment and Plan: Acute on chronic systolic and diastolic CHF improving. Still volume overloaded Will shift him from IV to p.o. furosemide today increase furosemide to 80 mg b.i.d. for week on discharge then back to 40 mg b.i.d. Ham bae Fluid restriction Low-sodium diet Has appointment with Dr. Richmond on April 11. (3) Ischemic cardiomyopathy: Code(s): I25.5 - Ischemic cardiomyopathy Status: Acute Assessment and Plan: EF 30-35%. Continue carvedilol but increase the dose to 12.5 mg b.i.d.. Entresto was restarted yesterday at a low dose. Potassium is stable. Continue to monitor. Patient's renal function may be too advanced for any CHF improvement with Farxiga or Jardiance. (4) Obstructive sleep apnea: Code(s): G47.33 - Obstructive sleep apnea (adult) (pediatric) Status: Acute Assessment and Plan: Intolerant to CPAP. Subjective Date/time seen: 03/30/22 16:23 Interval history: Follow-up visit in this 76-year-old man with: Longstanding coronary artery disease with surgical revascularization details dictated previous notes. Only remaining coronary circulation remains a an old vein graft to the LAD. Patient enters the hospital with an episode of biventricular CHF. Has had recent admissions with recurrences of this. Reports improvement this morning edema is with resolving slowly in the lower extremities they are less painful no longer short of breath Date of service 03/30/2022: Feels good today. Still has significant bilateral lower extremity edema. His breathing is okay. Denies any chest pain, palpitations. Did Review of Systems Constitutional: Constitutional: Reports fatigue Eyes: Eyes: Reports no additional eye complaints ENT: Denies epistaxis Cardiovascular: Cardiovascular: Reports chest pain (Chest pain with coughing spells), Reports pedal edema, Reports leg edema, Denies lightheadedness, Denies palpitations, Reports dyspnea and Reports dyspnea on exertion Respiratory: Respiratory: Denies hemoptysis, Reports dyspnea and Reports dyspnea on exertion Gastrointestinal: Gastrointestinal: Reports abdominal pain (Occasional abdominal discomfort), Denies hematochezia and Reports constipation Genitourinary: Genitourinary: Denies hematuria and Denies dysuria Musculoskeletal: Musculoskeletal: Reports no additional musculoskeletal complaints Integumentary/Breasts: Skin/Breast: Denies rash Neurologic: Denies behavioral changes and Denies confusion Psychiatric: Psychiatric: Denies behavioral changes and Denies confusion Endocrine: Endocrine: Reports fatigue and Denies palpitations Exam Narrative: Pleasant, chatty, friendly male sitting in the chair eating dinner Const: General: comfortable and no acute distress; No confusion Orientation/consciousness: No confusion HENMT: General nose exam: no epistaxis Mouth: Yes moist mucous membranes Eyes: Sclera: sclerae normal Pupils: Equal, round and reactive pupils present EOM: EOMs intact bilaterally Neck: Neck: supple and no JVD Thyroid: thyroid normal Carotids: bruit (Faint right carotid bruit) Lymphatic: lymphadenopathy not noted Resp: Effort & Inspection: normal
[2022-03-30 16:33] LABS: Glucose Point of Care 119 mg/dl (65-105)
[2022-03-30] MEDS: CHOLECALCIFEROL 1,000 UNITS TABLET 5000 UNITS PO (20:45)
[2022-03-30 21:02] LABS: Glucose Point of Care 123 mg/dl (65-105)
[2022-03-31] VITALS: PULSE 81
--- NOTE | 2022-03-31 01:24 | PC.NURSE ---
03/31/22 0124 called to room per charge nurse regarding pt iv out and bleeding profusely. pt denies sob/pain. no c/o dizziness or lightheadedness. applied 4x4 gauze and tape to iv site. bleeding stopped. will continue to monitor.
[2022-03-31] MEDS: ACETAMINOPHEN 325 MG TABLET 650 MG PO (01:29)
[2022-03-31 04:00] VITALS: PULSE 71
[2022-03-31] MEDS: LEVOTHYROXINE SODIUM 50 MCG TABLET PO (05:41)
[2022-03-31 06:00] VITALS: BP 106/45; PULSE 63; RESP 20; TEMP 36.6; O2SAT 100
[2022-03-31 06:21] LABS: Hematocrit 31.5 % (42.0-52.0); Hemoglobin 9.2 g/dL (14.0-18.0); Mean Corpuscular HGB Conc 29.2 g/dl (32-36); Mean Corpuscular Hemoglobin 28.8 pg (26-34); Mean Corpuscular Volume 98.4 fl (80-100); Mean Platelet Volume 11.7 fl (7.4-10.4); Platelet Count Result 156 k/mm3 (150-375); Red Cell Distribution Width 16.6 % (11.5-14.5); White Blood Count 8.1 K/mm3 (4.5-10.0)
[2022-03-31 06:36] LABS: Albumin Level 3.2 g/dL (3.5-5.1); Anion Gap 9 mmol/L (8-16); Blood Urea Nitrogen 60 mg/dL (9-20); Calcium 8.6 mg/dL (8.4-10.2); Carbon Dioxide 23 mmol/L (22-30); Chloride 105 mmol/L (98-107); Estimated CRCL calculation 23 ml/min; Estimated Glomerular Filt Rate 22; Glucose 103 mg/dL (65-110); Phosphorus 3.9 mg/dL (2.5-4.5); Potassium 4.8 mmol/L (3.4-5.0); Sodium 137 mmol/L (137-145)
[2022-03-31 07:43] LABS: Glucose Point of Care 97 mg/dl (65-105)
[2022-03-31 09:55] VITALS: O2SAT 100
[2022-03-31] MEDS: FUROSEMIDE 80 MG TABLET PO (09:55)
[2022-03-31] MEDS: ENOXAPARIN 30 MG/0.3 ML SYRINGE SUB-Q (09:55)
[2022-03-31] MEDS: ATORVASTATIN 40 MG TABLET 80 MG PO (09:55)
[2022-03-31] MEDS: OPTI-GEN TAB 1 TABLET PO (09:56)
[2022-03-31] MEDS: carvediloL 12.5 MG TABLET PO (09:56)
[2022-03-31] MEDS: ISOSORBIDE MONONITRATE 60 MG TAB.ER.24H PO (09:56)
[2022-03-31] MEDS: CLOPIDOGREL BISULFATE 75 MG TABLET PO (09:56)
[2022-03-31] MEDS: SACUBITRIL/VALSARTAN 24-26 MG TABLET 1 TAB PO (09:56)
[2022-03-31] MEDS: ASPIRIN 81 MG ENTERIC TABLET PO (09:56)
--- NOTE | 2022-03-31 10:46 | PM.PNCARD ---
Progress Note: A&P Assessment and Plan (1) Nonsustained ventricular tachycardia: Code(s): I47.2 - Ventricular tachycardia Status: Acute Assessment and Plan: Some nonsustained ventricular tachycardia noted, as well as runs of idioventricular rhythm. Frequent PVCs. Asymptomatic. Has an ICD Potassium is normal The idioventricular rhythm which occurred at 3:30 a.m. in the morning may be related to his sleep apnea On carvedilol; will increase the dose for his ventricular arrhythmias and cardiomyopathy. (2) Acute on chronic combined systolic and diastolic CHF (congestive heart failure): Code(s): I50.43 - Acute on chronic combined systolic (congestive) and diastolic (congestive) heart failure Status: Acute Assessment and Plan: Acute on chronic systolic and diastolic CHF improving. Still has LE edema increase furosemide to 80 mg b.i.d. for week on discharge then back to 40 mg b.i.d. Ham bae Fluid restriction Low-sodium diet Has appointment with Dr. Richmond on April 11. (3) Ischemic cardiomyopathy: Code(s): I25.5 - Ischemic cardiomyopathy Status: Acute Assessment and Plan: EF 30-35%. Continue carvedilol but increase the dose to 12.5 mg b.i.d.. Entresto was restarted yesterday at a low dose. Potassium rising but still within normal limits. Should have a BMP in one week as an outpatient. Patient's renal function may be too advanced for any CHF improvement with Farxiga or Jardiance. (4) Obstructive sleep apnea: Code(s): G47.33 - Obstructive sleep apnea (adult) (pediatric) Status: Acute Assessment and Plan: Intolerant to CPAP. Subjective Date/time seen: 03/31/22 10:46 Interval history: Follow-up visit in this 76-year-old man with: Longstanding coronary artery disease with surgical revascularization details dictated previous notes. Only remaining coronary circulation remains a an old vein graft to the LAD. Patient enters the hospital with an episode of biventricular CHF. Has had recent admissions with recurrences of this. Reports improvement this morning edema is with resolving slowly in the lower extremities they are less painful no longer short of breath Date of service 03/30/2022: Feels good today. Still has significant bilateral lower extremity edema. His breathing is okay. Denies any chest pain, palpitations. Date of service 03/31/2022: Still has significant bilateral lower extremity swelling. Does not have any shortness of breath or chest pain. Feels fatigued. Review of Systems Constitutional: Constitutional: Reports fatigue Eyes: Eyes: Reports no additional eye complaints ENT: Denies epistaxis Cardiovascular: Cardiovascular: Reports chest pain (Chest pain with coughing spells), Reports pedal edema, Reports leg edema, Denies lightheadedness, Denies palpitations, Reports dyspnea and Reports dyspnea on exertion Respiratory: Respiratory: Denies hemoptysis, Reports dyspnea and Reports dyspnea on exertion Gastrointestinal: Gastrointestinal: Reports abdominal pain (Occasional abdominal discomfort), Denies hematochezia and Reports constipation Genitourinary: Genitourinary: Denies hematuria and Denies dysuria Musculoskeletal: Musculoskeletal: Reports no additional musculoskeletal complaints Integumentary/Breasts: Skin/Breast: Denies rash Neurologic: Denies behavioral changes and Denies confusion Psychiatric: Psychiatric: Denies behavioral changes and Denies confusion Endocrine: Endocrine: Reports fatigue and Denies palpitations Exam Narrative: Pleasant older gentleman lying comfortably in bed. Const: General: comfortable and no acute distress; No confusion Orientation/consciousness: No confusion HENMT: General nose exam: no epistaxis Mouth: Yes moist mucous membranes Eyes: Sclera: sclerae normal Pupils: Equal, round and reactive pupils present EOM: EOMs intact bilaterally Neck: Neck: supple and no JVD Thy
[2022-03-31 11:31] LABS: Glucose Point of Care 110 mg/dl (65-105)
--- NOTE | 2022-03-31 12:09 | PM.DS ---
DS: Admitting Diagnosis Discharge Date 03/2022 Admitting Diagnosis CHF exacerbation DS: Discharge Diagnosis Discharge Diagnosis (1) Acute on chronic systolic (congestive) heart failure: Code(s): I50.23 - Acute on chronic systolic (congestive) heart failure Status: Acute Assessment and Plan: adjusted cardiac meds fu cardiology (2) Essential hypertension: Code(s): I10 - Essential (primary) hypertension Status: Chronic Assessment and Plan: will continue home regimen and monitor (3) Hypothyroidism: Code(s): E03.9 - Hypothyroidism, unspecified Status: Acute Assessment and Plan: will continue home levothyroxine (4) CKD stage 4 due to type 2 diabetes mellitus: Code(s): E11.22 - Type 2 diabetes mellitus with diabetic chronic kidney disease; N18.4 - Chronic kidney disease, stage 4 (severe) Status: Acute Assessment and Plan: patient with stage 4 chronic kidney disease now being diuresed will closely monitor patient kidney function DS: Summary Hospital Course Hospital Course: See plan and diagnoses. Please note the patient was given opportunity to go to skilled facility and he refused. He wants to go home with home health Time Spent with Patient Time attestation: Total time spent providing and/or coordinating discharge services: Exam Narrative: moderately obese Patient is comfortable, NAD HEENT: eyes are clear and none icteric LUNGS: bilateral fair air entry with rales and rhonchi HEART: RR S1S2 ABD: BS+, Soft and nontender Lower extremities: bilateral lower extremity edema SKIN: nonjaundiced Neuro: grossly intact. DS: Data Data Completed and Pending Labs on day of discharge: Labs from last 24 hours 03/31/22 03/31/22 03/31/22 11:19 07:36 06:02 WBC RBC Hgb Hct MCV MCH MCHC RDW Plt Count MPV Sodium 137 Potassium 4.8 Chloride 105 Carbon Dioxide 23 Anion Gap 9 BUN 60 H Creatinine 2.80 H Estim Creat Clear Calc 23 Estimated GFR 22 L Glucose 103 POC Capillary Glucose 110 H 97 Calcium 8.6 Phosphorus 3.9 Albumin 3.2 L 03/31/22 03/30/22 03/30/22 06:02 20:42 16:29 WBC 8.1 RBC 3.20 L Hgb 9.2 L Hct 31.5 L MCV 98.4 MCH 28.8 MCHC 29.2 L RDW 16.6 H Plt Count 156 MPV 11.7 H Sodium Potassium Chloride Carbon Dioxide Anion Gap BUN Creatinine Estim Creat Clear Calc Estimated GFR Glucose POC Capillary Glucose 123 H 119 H Calcium Phosphorus Albumin Discharge Plan Discharge Attending physician on discharge: Yehuda Barr Consulting providers: Yehuda Richmond Discharging Clinician: Yehuda Barr Patient Disposition: Home Health Service Activity: no preference Diet: as tolerated Discharge Instructions: Per Care Coordination Patient has been accept ed to have [facility] for RN, PT, OT [phone] Patient Instructions: Antibiotic Form, Clopidogrel (By mouth), Heart Failure (DC) Stand Alone Forms: General Discharge Information Follow-up/Referrals: Rita Gates MD [Primary Care Provider] - Yehuda Richmond MD [Physician] - Discharge Medications: New carvedilol [Coreg] 12.5 mg Tablet 12.5 mg PO Q12HR 30 Days Qty: 60 RF: 0 Entresto 24-26 mg Tablet 1 tab PO Q12HR 30 Days Qty: 60 RF: 0 Continued aspirin [Adult Aspirin Regimen] 81 mg tablet,delayed release (DR/EC) 81 mg PO DAILY RF: 0 atorvastatin [Lipitor] 80 mg tablet 80 mg PO DAILY RF: 0 isosorbide mononitrate 60 mg tablet extended release 24 hr 60 mg PO DAILY RF: 0 cholecalciferol (vitamin D3) 125 mcg (5,000 unit) Capsule 125 mcg PO HS RF: 0 Basaglar KwikPen U-100 Insulin 100 unit/mL (3 mL) insulin pen 5 unit SUBCUT QAM RF: 0 PreserVision AREDS-2 [id number] Capsule 1 cap PO Q12H RF: 0
[2022-03-31 14:00] VITALS: BP 110/44; PULSE 72; RESP 18; TEMP 35.9; O2SAT 100
== END 2022-03-31 16:05 | disposition home health service (06) | DRG 291 ==
LOC: ANHED 10:20 → ANH3MEDSUR 11:11
PROVIDERS: Family Medicine; Admitting Provider Student in an Organized Health Care Education/Training Program; Emergency Provider Emergency Medicine; PCP Family Medicine; Visit Provider Chiropractor
DX: I11.0 Hypertensive heart disease with heart failure (principal); I50.43 Acute on chronic combined systolic (congestive) and diastolic (congestive) heart failure; N18.4 Chronic kidney disease, stage 4 (severe); I47.2 Ventricular tachycardia; E11.22 Type 2 diabetes mellitus with diabetic chronic kidney disease; E11.51 Type 2 diabetes mellitus with diabetic peripheral angiopathy without gangrene; Z20.822 Contact with and (suspected) exposure to COVID-19; I25.5 Ischemic cardiomyopathy; E03.9 Hypothyroidism, unspecified; J44.9 Chronic obstructive pulmonary disease, unspecified; E78.2 Mixed hyperlipidemia; G47.33 Obstructive sleep apnea (adult) (pediatric); K21.9 Gastro-esophageal reflux disease without esophagitis; Z79.82 Long term (current) use of aspirin; Z79.899 Other long term (current) drug therapy; Z87.891 Personal history of nicotine dependence; Z88.0 Allergy status to penicillin; Z91.11 Patient's noncompliance with dietary regimen; Z95.810 Presence of automatic (implantable) cardiac defibrillator; Z98.49 Cataract extraction status, unspecified eye; Z95.1 Presence of aortocoronary bypass graft
CPT/HCPCS: 36415; 71046; 73030; 80053; 80069; 82948; 83880; 85025; 85027; 85610; 85730; 93005; 96372; 96374; 97110; 97161; 97165; 97530; 97535; 99285; A9270; C9803; G0378; J1650; J1815; J1940; U0003; U0005

== ENCOUNTER 2022-04-07 11:21 | Outpatient (NON) | payer MEDICARE, SELFPAY ==
[2022-04-07 12:15] LABS: Anion Gap 11 mmol/L (8-16); Blood Urea Nitrogen 93 mg/dL (9-20); Calcium 8.4 mg/dL (8.4-10.2); Carbon Dioxide 22 mmol/L (22-30); Chloride 108 mmol/L (98-107); Estimated Glomerular Filt Rate 14; Glucose 109 mg/dL (65-110); Potassium 5.1 mmol/L (3.4-5.0); Sodium 141 mmol/L (137-145)
== END 2022-04-07 11:22 | disposition home or self-care (01) ==
LOC: HOME HLTH 11:23
PROVIDERS: PCP Family Medicine; Visit Provider Nurse Practitioner
DX: I50.43 Acute on chronic combined systolic (congestive) and diastolic (congestive) heart failure (principal); E87.5 Hyperkalemia
CPT/HCPCS: 80048

== ENCOUNTER 2022-04-21 15:26 | Outpatient (NON) | payer MEDICARE, SELFPAY ==
[2022-04-21 15:54] LABS: Anion Gap 10 mmol/L (8-16); Blood Urea Nitrogen 82 mg/dL (9-20); Calcium 8.3 mg/dL (8.4-10.2); Carbon Dioxide 22 mmol/L (22-30); Chloride 115 mmol/L (98-107); Estimated Glomerular Filt Rate 15; Glucose 100 mg/dL (65-110); Potassium 4.7 mmol/L (3.4-5.0); Sodium 147 mmol/L (137-145)
== END 2022-04-21 15:27 | disposition home or self-care (01) ==
LOC: HOME HLTH 15:30
PROVIDERS: PCP Family Medicine; Visit Provider Specialist
DX: I50.23 Acute on chronic systolic (congestive) heart failure (principal)
CPT/HCPCS: 80048

== ENCOUNTER 2022-05-02 14:25 | Inpatient (IN) | payer MEDICARE, SELFPAY ==
[2022-05-02] VITALS (21 sets, daily range): BP systolic 102–119; BP diastolic 52–57; PULSE 53–87; RESP 15–28; TEMP 35.9–36.2; O2SAT 90–96; BMI 32.1; BMI 32.5
--- NOTE | ~2022-05-02 | CT_ITS ---
EXAMINATION: CT diagnostic chest wo con DATE: 05/02/2022 16:25 INDICATION: pl. effusion TECHNIQUE: Computed tomography (CT) of the chest was performed without intravenous contrast. Automate d exposure control and iterative reconstruction technique were employed. The dose-length product was 491.29 mGy-cm. COMPARISON: X-ray chest, same date, [facility]PA 10/20/2020. FINDINGS: CHEST: Thoracic aorta: Moderate arch calcification without significant dilation. Lung parenchyma and airways: Minimal aerated debris in the left mainstem bronchus. Subsegmental area of consolidation in the right medial lower lung. Diffuse and patchy groundglass opacities. Peripheral reticulation. Margins of opacity and volume loss in the left lower lobe. Moderate volume left and sm all volume right pleural effusions. Thoracic inlet, axillae and chest wall: No thyroid or soft tissue mass. Borderline axillary lymphaden opathy. Severe and asymmetric subcutaneous edema Mediastinum: No mass. Borderline lymphadenopathy. Heart and pericardium: Normal heart size. No pericardial effusion. Coronary artery moderate volume left and small volume right calcifications: Heavy. Pleura: Moderate volume left and small volume right pleural fluid collections. Upper abdomen: Nodular appearing liver border. Upper abdominal varices. Large volume abdominal ascite s. Right renal atrophy. Thoracic bones: No acute osseous finding in the chest. IMPRESSION: Mild pulmonary edema, with bilateral lower lung atelectasis, left greater than right. Infection not e xcluded. Moderate left and small right pleural effusions. Large volume abdominal ascites. Marked body wall edema. Cirrhosis with portal hypertension. Reviewed, dictated and finalized at location K. IMPRESSION: Mild pulmonary edema, with bilateral lower lung atelectasis, left greater than right. Infection not excluded. Moderate left and small right pleural effusions. Large volume abdominal ascites. Marked body wall edema. Cirrhosis with portal hypertension.
--- NOTE | ~2022-05-02 | XR_ITS ---
EXAMINATION: XR chest 2V Exam Date/Time: 05/02/2022 14:45 CDT HISTORY: sob DIMINISHED LUNG SOUNDS ON LEFT, Comparison: None available. RESULT: Lines, tubes, and devices: Intact sternotomy wires. Left chest AICD. Mediastinal clips.. Lungs and pleura: Moderate volume left pleural fluid with lower lung opacities. Emphysematous change . Cardiomediastinal silhouette: Stable cardiomediastinal silhouette. Other: No acute osseous or upper abdominal finding. IMPRESSION: Moderate left pleural effusion, increased since prior study. Left basilar atelectasis versus consolid ation. Reviewed, dictated and finalized at location K. IMPRESSION: Moderate left pleural effusion, increased since prior study. Left basilar atele ctasis versus consolidation.
--- NOTE | ~2022-05-02 | XR_ITS ---
EXAMINATION: XR_[id number]_CR DATE: 05/05/2022 12:37 INDICATION: Left pleural effusion status post thoracentesis. TECHNIQUE: A single frontal view of the chest was obtained. COMPARISON: Chest single view 05/04/2022, chest CT 05/02/2022 FINDINGS: There is mild atelectasis in the lower lung zones. No pleural effusion or pneumothorax. Car diomegaly is noted. There is a right subclavian central venous catheter with tip in region. Median st ernotomy wires and mediastinal surgical clips are seen, likely from prior coronary artery bypass leida ting. There is a left chest pacer/defibrillator with lead in right ventricle. There are surgical clip s in right neck. IMPRESSION: 1. Mild atelectasis in the lower lung zones. 2. Cardiomegaly. Reviewed, dictated and finalized at location A.
--- NOTE | ~2022-05-02 | XR_ITS ---
EXAMINATION: XR fl guide central line place DATE: 05/04/2022 16:13 INDICATION: Tunneled Duraflow dialysis catheter insertion TECHNIQUE: 5 fluoroscopic images of the right chest were obtained during procedure performed by Dr. William merritt. Radiologist was not present for the imaging or procedure. The amount of fluoroscopy time used du ring this procedure was 2.1 minutes. COMPARISON: Chest radiograph and CT dated 05/02/22 FINDINGS: Endotracheal tube tip 2 cm above the tuyet. Nasogastric tube extends into the stomach. Large-bore du al-lumen reportedly tunneled right subclavian central venous catheter with distal tip near the superi or cavoatrial junction. A wire likely for catheter placement extensive the right atrium with distal t ip coiled in the region of the inferior cavoatrial junction. Single lead cardiac pacemaker/defibrilla tor with lead tip in the right ventricle. Airspace opacities throughout the visualized left upper and medial lower lung zones likely due to moderate-sized pleural effusion as seen on prior CT. Visualize d portion of the right lung is clear with no pneumothorax or pleural effusion. Median sternotomy wire s and mediastinal surgical clips are seen, likely from prior coronary artery bypass grafting. IMPRESSION: 1. Right subclavian central venous catheter tip near the superior cavoatrial junction. 2. Opacities in the left upper and lower lung likely related to a moderate-sized right pleural effusi on. Reviewed, dictated and finalized at location B. IMPRESSION: 1. Right subclavian central venous catheter tip near the superior cavoatrial ju nction. 2. Opacities in the left upper and lower lung likely related to a moderate-size d right pleural effusion.
--- NOTE | ~2022-05-02 | US_ITS ---
EXAMINATION: US paracentesis abd w/image DATE: 05/05/2022 12:38 INDICATION: Ascites. TECHNIQUE: The procedure and its risks, benefits, and alternatives were discussed with the patient. P otential risks discussed included bleeding and infection. The skin was prepped and draped in sterile fashion. 1% lidocaine was used for local anesthesia. Under ultrasound guidance, a 5 Fr catheter with trochar was advanced into the ascites in the right lower quadrant. Fluid was aspirated. The catheter was removed, and a dressing was applied. There were no immediate complications. FINDINGS: Ultrasound images demonstrate ascites and the catheter within the fluid. IMPRESSION: 1. Successful ultrasound-guided paracentesis yielding 5000 mL of clear, yellow fluid. Reviewed, dictated and finalized at location A.
--- NOTE | ~2022-05-02 | XR_ITS ---
EXAMINATION: XR chest port-a-cath/central DATE: 05/04/2022 15:35 INDICATION: Central line placement. TECHNIQUE: A single frontal view of the chest was obtained. COMPARISON: Chest 2 views 05/02/2022, chest CT 05/02/2022 FINDINGS: There is a moderate-sized left pleural effusion. There are airspace opacities in all left l reji zones. There are interstitial opacities in right lung and airspace opacities in right lower lung zone. No pneumothorax. Cardiomegaly is noted. Median sternotomy wires and mediastinal surgical clips are seen, likely from prior coronary artery bypass grafting. There is a left chest pacer with lead in right ventricle. There is a right subclavian central venous catheter with tip in right atrium. There are surgical clips in right neck. IMPRESSION: 1. Central line tip in right atrium. 2. Worsened diffuse lung disease, likely moderate pulmonary edema. Pneumonia cannot be excluded. 3. Moderate-sized left pleural effusion. 4. Cardiomegaly. Reviewed, dictated and finalized at location A. IMPRESSION: 1. Central line tip in right atrium. 2. Worsened diffuse lung disease, likely moderate pulmonary edema. Pneumonia ca nnot be excluded. 3. Moderate-sized left pleural effusion. 4. Cardiomegaly.
--- NOTE | ~2022-05-02 | US_ITS ---
EXAMINATION: US thoracentesis DATE: 05/05/2022 12:39 INDICATION: pleural effusion TECHNIQUE: The procedure and its risks, benefits, and alternatives were discussed with the patient. P otential risks discussed included bleeding, infection, and pneumothorax. The patient understood the r isks and agreed to proceed. The skin was prepped and draped in sterile fashion. 1% lidocaine was used for local anesthesia. Under ultrasound guidance, a 5 Fr catheter with trochar was advanced into the left pleural effusion. Fluid was aspirated. The catheter was removed, and a dressing was applied. The re were no immediate complications. FINDINGS: Ultrasound images demonstrate a left pleural effusion and the catheter within the fluid. IMPRESSION: 1. Successful ultrasound-guided thoracentesis yielding 650 mL of clear, henri-colored fluid. Reviewed, dictated and finalized at location A. IMPRESSION: 1. Successful ultrasound-guided thoracentesis yielding 650 mL of clear, henri- colored fluid.
--- NOTE | 2022-05-02 14:37 | ECG_ITS ---
Measurements Intervals [place] Rate: 68 P: 15 [place]: 161 QRS: 18 QRSD: 130 T: 179 QT: 441 QTc: 469 Interpretive Statements SINUS RHYTHM LOW-VOLTAGE QRS IN PRECORDIAL LEADS ST AND T-WAVE ABNORMALITY HIGH LATERAL LEADS CONSIDER MYOCARDIAL ISCHEMIA CANNOT RULE OUT INFERIOR MYOCARDIAL INFARCTION, PROBABLY OLD ABNORMAL ECG COMPARED TO ECG 03/28/2022 11:58:45 NO SIGNIFICANT CHANGES Electronically Signed On 05-02-2022 15:10:24 CDT by Blas Hinton M.D.
[2022-05-02 14:58] LABS: Basophils Percent Auto 0.6 % (0.2-1.2); Eosinophils Absolute Auto 0.2 K/mm3 (0-0.3); Eosinophils Percent Auto 3.2 % (0-4.4); Hematocrit 31.7 % (42.0-52.0); Hemoglobin 9.7 g/dL (14.0-18.0); Immature Granulocyte Absolute 0.02 K/mm3 (0.00-0.031); Immature Granulocyte Percent A 0.3 % (0-0.5); Lymphocytes Absolute Auto 0.66 K/mm3 (0.9-3.2); Lymphocytes Percent Auto 10.4 % (18.3-44.2); Mean Corpuscular HGB Conc 30.6 g/dl (32-36); Mean Corpuscular Hemoglobin 29.2 pg (26-34); Mean Corpuscular Volume 95.5 fl (80-100); Mean Platelet Volume 12.1 fl (7.4-10.4); Monocytes Absolute Auto 0.6 K/mm3 (0.1-0.6); Monocytes Percent Auto 9.8 % (2.6-8.5); Neutrophils Absolute Auto 4.8 K/mm3 (1.3-6.7); Neutrophils Percent Auto 75.7 % (45.5-73.1); Platelet Count Result 167 k/mm3 (150-375); Red Blood Count 3.32 M/mm3 (4.6-6.20); Red Cell Distribution Width 16.7 % (11.5-14.5); White Blood Count 6.3 K/mm3 (4.5-10.0)
[2022-05-02 15:08] LABS: INR 1.3; Prothrombin Time 16.1 Seconds (11.1-14.7)
[2022-05-02 15:09] LABS: Partial Thromboplastin Time 37.7 SECONDS (22.3-36.8)
[2022-05-02 15:30] LABS: Alanine Aminotransferase 9 U/L (6-50); Alkaline Phosphatase 90 U/L (38-126); Anion Gap 8 mmol/L (8-16); Aspartate Amino Transferase 15 U/L (17-59); Bilirubin,Total 0.4 mg/dL (0.2-1.3); Blood Urea Nitrogen 83 mg/dL (9-20); Calcium 8.4 mg/dL (8.4-10.2); Carbon Dioxide 18 mmol/L (22-30); Chloride 113 mmol/L (98-107); Estimated Glomerular Filt Rate 17; Glucose 86 mg/dL (65-110); Potassium 4.9 mmol/L (3.4-5.0); Sodium 139 mmol/L (137-145)
[2022-05-02 15:54] LABS: NT Pro B Type Natriuretic Pept > 35000 pg/mL (5-100)
[2022-05-02] MEDS: FUROSEMIDE INJ 40 MG/4 ML VIAL IV PUSH ×2 (16:32→21:00)
--- NOTE | 2022-05-02 17:31 | ED.SOB ---
HPI - SOB/Dyspnea General Chief Complaint: Shortness of Breath/Dyspnea Stated Complaint: CHF exacerbation Time Seen by Provider: 05/02/22 14:32 Source: patient Mode of arrival: EMS Limitations: no limitations History of Present Illness HPI Narrative: 76-year-old with a history of cardiomyopathy, CHF, COPD on 2 L oxygen at home was brought in from home with complaints of shortness of breath, leg swelling decreased urination for past few days. Patient states he has been taking all his home medication. MD elicited complaint: shortness of breath Pertinent past history: COPD and congestive heart failure Timing: constant Severity: moderate Exacerbating factors: lying flat and exertion Relieving factors: nothing Known history of: congestive heart failure Associated symptoms: denies other symptoms Treatment prior to arrival: none Related Data Home oxygen amount: 2 liters Home Medications Medication Instructions Recorded Confirmed atorvastatin 80 mg tablet (Lipitor) 80 mg PO DAILY 09/23/19 03/26/22 vit C 250 mg-vit E 90 mg-zinc 40 1 cap PO Q12H 10/20/20 03/26/22 mg-copper 1 [id number] capsule (PreserVision AREDS-2) aspirin 81 mg tablet,delayed 81 mg PO DAILY 01/19/21 03/26/22 release (Adult Aspirin Regimen) cholecalciferol (vitamin D3) 125 125 mcg PO HS 08/02/21 03/26/22 mcg (5,000 unit) capsule insulin glargine 100 unit/mL (3 5 unit subcut QAM 08/02/21 03/26/22 mL) subcutaneous pen (Basaglar KwikPen U-100 Insulin) isosorbide mononitrate 60 mg 60 mg PO DAILY 08/02/21 03/26/22 tablet,extended release 24 hr Allergies Allergy/AdvReac Type Severity Reaction Status Date / Time Penicillins Allergy Unknown UNKNOWN Unverified 03/29/22 10:50 A CHILD,Unknown Review of Systems Review of Systems: All systems reviewed & are unremarkable except as noted in HPI and below Constitutional: Constitutional: Reports no additional constitutional complaints Eyes: Eyes: Reports no additional eye complaints ENT: Reports system reviewed and no additional complaints, except as documented Cardiovascular: Cardiovascular: Reports as per HPI Respiratory: Respiratory: Reports as per HPI Gastrointestinal: Gastrointestinal: Reports as per HPI and Reports bloating Musculoskeletal: Musculoskeletal: Reports no additional musculoskeletal complaints Integumentary/Breasts: Skin/Breast: Reports system reviewed and no additional complaints, except as docu Neurologic: Reports system reviewed and no additional complaints, except as documented Psychiatric: Psychiatric: Reports no additional psychiatric complaints [facility] Past Medical History Medical History Abdominal aortic aneurysm Acute on chronic combined systolic and diastolic CHF (congestive heart failure) Arthritis Ascites Carotid stenosis, bilateral Carpal tunnel syndrome Chronic anemia Chronic kidney disease, stage 4 (severe) CKD stage 4 due to type 2 diabetes mellitus COPD (chronic obstructive pulmonary disease) Deep venous thrombosis Essential hypertension Gastroesophageal reflux disease Heart failure with reduced ejection fraction Echo in 07/2021: 1. Technically difficult study with limited views. 2. Moderately reduced LF function with an EF estimated at 30-35% with hypokinesis of the mid to basal anterolateral, inferior, anterior, and basal inferoseptal arroyo with relative sparing of the apex. 3. Mildly increased LV wall thickness. 4. Left atria is moderately enlarged. 5. Mild tricuspid valve regurgitation. 6. Severe pulmonary hypertension with an estimated pulmonary arterial systolic pressure of 65 mmHg. Hypothyroidism Insulin dependent type 2 diabetes mellitus Mixed hyperlipidemia Nonsustained ventricular tachycardia Obstructive sleep apnea Intolerant to CPAP. Wears oxygen at nighttime. Pancreatitis Peripheral vascular disease Psoriasis Umbilical hernia without obstruction and without ga
[2022-05-02 19:51] LABS: Troponin I 0.042 ng/mL (0.000-0.034)
--- NOTE | 2022-05-02 20:08 | ADMGEN ---
This patient, Jaime Morrell, was admitted to IMU Room 207-01 at 2000. Patient/family oriented to hospital policies and general routines including ID bracelet, bed and alarms, visiting hours, pain management, procedures, bathroom and other care routines, personal items, smoking policy, room service/diet, and visiting hours. Information on how to activate the Rapid Response Team has been discussed. Patient/Family are encouraged to report perceived risks to care and to ask questions if they do not understand what they are told or what they should do.
[2022-05-03] VITALS (16 sets, daily range): BP systolic 91–125; BP diastolic 42–70; PULSE 68–85; RESP 16–22; TEMP 36.2–36.6; O2SAT 94–98
--- NOTE | 2022-05-03 02:28 | PM.IMHP ---
H&P: HPI History of Present Illness Date/Time: Patient was placed observation status for expected length of stay less than 23 hours for management, will plan to re-evaluate tomorrow for improvement. 05/02/22 Chief Complaint: Shortness of breath Narrative: Mr. Morrell is a 76-year-old gentleman who presented to the emergency room with complaints of increasing shortness of breath. Patient states that he typically wears oxygen at home at 2 L per nasal cannula but yesterday he had to increase it to 3 L per nasal cannula because he was starting to feel short of breath. Patient states he did have 3 episodes of diarrhea yesterday. Patient states he has not been taking his medications for the last 2 days because he has not felt well and cannot get up to get his medications. Patient states he has noticed increasing edema over the last 2-3 days. Patient states he typically has no difficulty taking his medications, but he is just not felt well. Patient denies any chest pain, lightheadedness, dizziness, syncopal, or near syncopal episodes. Patient denies any fever or chills. Patient has a known history of ischemic cardiomyopathy with echo from 07/2021 showing ejection fraction of 30-35%. Upon evaluation in emergency room patient underwent chest x-ray which does show cardiomegaly with pulmonary vascular congestion. Patient underwent CT without contrast of the chest that showed mild pulmonary edema with bilateral lower lung atelectasis, left greater than right. Infection not excluded. Moderate left and small right pleural effusion. Large volume abdominal ascites. Marked belly wall edema. Cirrhosis with portal hypertension. Patient does have a known history of chronic kidney disease, but his kidney function is at baseline at this time. Patient has a known history of coronary artery disease status post coronary bypass grafting x2, ischemic cardiomyopathy status post single-chamber ICD, right carotid stenosis status post carotid endarterectomy, diabetes mellitus, chronic kidney disease, and dyslipidemia. Patient also has a known history of obstructive sleep apnea and he is intolerant to his CPAP so he will wear oxygen at night. Review of Systems Review of Systems: A 12 point review of systems was completed patient all pertinent positive and negative per HPI the remainder are unremarkable. [facility] Past Medical History Medical History Abdominal aortic aneurysm Acute on chronic combined systolic and diastolic CHF (congestive heart failure) Arthritis Ascites Carotid stenosis, bilateral Carpal tunnel syndrome Chronic anemia Chronic kidney disease, stage 4 (severe) CKD stage 4 due to type 2 diabetes mellitus COPD (chronic obstructive pulmonary disease) Deep venous thrombosis Essential hypertension Gastroesophageal reflux disease Heart failure with reduced ejection fraction Echo in 07/2021: 1. Technically difficult study with limited views. 2. Moderately reduced LF function with an EF estimated at 30-35% with hypokinesis of the mid to basal anterolateral, inferior, anterior, and basal inferoseptal arroyo with relative sparing of the apex. 3. Mildly increased LV wall thickness. 4. Left atria is moderately enlarged. 5. Mild tricuspid valve regurgitation. 6. Severe pulmonary hypertension with an estimated pulmonary arterial systolic pressure of 65 mmHg. Hypothyroidism Insulin dependent type 2 diabetes mellitus Mixed hyperlipidemia Nonsustained ventricular tachycardia Obstructive sleep apnea Intolerant to CPAP. Wears oxygen at nighttime. Pancreatitis Peripheral vascular disease Psoriasis Umbilical hernia without obstruction and without gangrene Vertigo Volume overload Surgical History Surgical History H/O abdominal surgery Revascularization to renal arteries and mesenteric artery H/O fasciotomy Right leg History of cataract extraction Histor
[2022-05-03 05:06] LABS: Basophils Percent Auto 0.4 % (0.2-1.2); Eosinophils Absolute Auto 0.1 K/mm3 (0-0.3); Eosinophils Percent Auto 1.4 % (0-4.4); Hematocrit 29.9 % (42.0-52.0); Hemoglobin 8.8 g/dL (14.0-18.0); Immature Granulocyte Absolute 0.03 K/mm3 (0.00-0.031); Immature Granulocyte Percent A 0.5 % (0-0.5); Lymphocytes Absolute Auto 0.46 K/mm3 (0.9-3.2); Lymphocytes Percent Auto 8.2 % (18.3-44.2); Mean Corpuscular HGB Conc 29.4 g/dl (32-36); Mean Corpuscular Hemoglobin 28.9 pg (26-34); Mean Platelet Volume 11.4 fl (7.4-10.4); Monocytes Absolute Auto 0.5 K/mm3 (0.1-0.6); Monocytes Percent Auto 9.2 % (2.6-8.5); Neutrophils Absolute Auto 4.5 K/mm3 (1.3-6.7); Neutrophils Percent Auto 80.3 % (45.5-73.1); Platelet Count Result 144 k/mm3 (150-375); Red Blood Count 3.05 M/mm3 (4.6-6.20); Red Cell Distribution Width 16.6 % (11.5-14.5); White Blood Count 5.6 K/mm3 (4.5-10.0)
[2022-05-03 05:22] LABS: Anion Gap 9 mmol/L (8-16); Blood Urea Nitrogen 85 mg/dL (9-20); Calcium 8.4 mg/dL (8.4-10.2); Carbon Dioxide 19 mmol/L (22-30); Chloride 112 mmol/L (98-107); Estimated CRCL calculation 18 ml/min; Estimated Glomerular Filt Rate 17; Glucose 74 mg/dL (65-110); Potassium 4.8 mmol/L (3.4-5.0); Sodium 140 mmol/L (137-145)
[2022-05-03] MEDS: LEVOTHYROXINE SODIUM 50 MCG TABLET PO (06:09)
--- NOTE | 2022-05-03 08:48 | PM.CNNEP ---
Assessment and Plan Additional Plan 1.CKD this is due to vascular disease, diabetes, and hypertension. His creatinine has gradually worsened over the last few months. Had problems with volume overload the last few months as well. Currently he has volume overload and worsened creatinine at the same time. So I think medication has achieved the limitation of what he can do to keep him off dialysis. The patient does have uremic symptoms. Has nausea plus gagging. He has a poor appetite. In addition he has volume overload. We can use diuretics to help this out however his uremic symptoms will probably just worsen so I think we ought to just plan for dialysis. The patient wants to do peritoneal dialysis but we do not have that availability at [facility] so we will place a PermCath for dialysis and set him up as an outpatient for placement of a peritoneal dialysis catheter. We discussed the risks, benefits, alternatives, and process of dialysis and he agrees with proceeding. 2. The patient has hypertension. This is well controlled. 3. The patient has diabetes. He is on insulin sliding scale plus Accu-Cheks per hospitalist. 4. The patient has volume overload. Has a pleural effusion and edema as well as pulmonary crackles. Will give him diuretics for now and will continue while on dialysis as long has he makes urine.. 5. He has hypothyroidism is on supplements. 6. He has hyperlipidemia and is on atorvastatin. History of Present Illness Reason for Consult Consult date: 05/04/22 Chief Complaint Chief complaint: chf History of Present Illness Narrative: Jaime is a very pleasant 76-year-old gentleman who has multiple medical problems including chronic kidney disease due to vascular disease in 2007 and since then due to hypertension and diabetes on top of the vascular disease, diabetes, hypertension, abdominal aortic aneurysm, arthritis, anemia, renal osteodystrophy, COPD, GERD, hypothyroidism, hyperlipidemia, sleep apnea treated with oxygen only because he does not tolerate the CPAP machine, history of pancreatitis,. Lately the patient has been struggling with some shortness of breath. Also lately as creatinine has risen from baseline of about 3 to a baseline around 4 in the last few months. He says in the last week or so he has become more short of breath. This is gradually worsened in the last week. He has been fairly uncomfortable with his breathing. He has not had any chest pain or cough or fevers. He has developed more swelling in the legs. This has been worse in the left than the right over the last few years.. He said in the past however occasionally it is worse on the right than the left. He says that has had several venous Dopplers and he never has had blood clots. He says that over the last 2 days he has had 3 or 4 episodes of diarrhea and that was the last straw so he decided to come into the emergency room. the patient has been seeing Dr. Ureña in the office. They have been talk about the possibility of dialysis. He wants to do peritoneal dialysis when it becomes chronic. He has had episodes of nausea and vomiting. Lot of times this happens when he has a coughing spell in ends up gagging and vomiting. He also has had times with isolated nausea. He has not had a very good appetite and says he has lost a little bit of weight. Review of Systems Constitutional: Constitutional: Reports no additional constitutional complaints Eyes: Eyes: Reports no additional eye complaints ENT: Reports system reviewed and no additional complaints, except as documented Cardiovascular: Cardiovascular: Reports no additional cardiovascular complaints Respiratory: Respiratory: Reports no additional respiratory complaints Gastrointestinal: Gastrointestinal: Reports no additional gastrointestinal complaints Genitourinary: Genitourinary: Reports no additional male genitourinary complaints Musculoskeletal: M
[2022-05-03] MEDS: ATORVASTATIN 40 MG TABLET 80 MG PO (10:37)
[2022-05-03] MEDS: OPTI-GEN TAB 1 TABLET PO ×2 (10:37→18:27)
[2022-05-03] MEDS: FUROSEMIDE INJ 40 MG/4 ML VIAL IV PUSH ×2 (10:37→20:48)
[2022-05-03] MEDS: ISOSORBIDE MONONITRATE 60 MG TAB.ER.24H PO (10:37)
[2022-05-03] MEDS: carvediloL 12.5 MG TABLET PO ×2 (10:37→20:48)
[2022-05-03 11:28] LABS: Hepatitis B Surface Antigen Negative (Negative)
[2022-05-03 12:54] LABS: Glucose Point of Care 99 mg/dl (65-105)
[2022-05-03 13:03] LABS: Glucose Point of Care 68 mg/dl (65-105)
[2022-05-03 14:43] LABS: Hepatitis B Surface Anti Res Negative; Hepatitis C Virus Antibody Negative (Negative)
--- NOTE | 2022-05-03 15:35 | PM.CNCAR ---
Assessment and Plan Assessment and plan (1) Acute on chronic combined systolic and diastolic CHF (congestive heart failure): Code(s): I50.43 - Acute on chronic combined systolic (congestive) and diastolic (congestive) heart failure Status: Acute Plan 76-year-old man as stated above with advanced essentially end-stage coronary artery disease now with worsening renal function he apparently is a now approached end-stage renal disease and will be started on dialysis. Obviously I am sorry for Mr. Morrell that he will need to be on dialysis on the other hand it would likely make our ability to treat his heart failure more effective we should be able to resume medications such as Entresto and were no longer concerned about hyperkalemia. For now I would continue his furosemide regimen that he you have him on I will follow along and when he is started on dialysis I would like to make another attempt at starting Entresto as long as he has blood pressure to work with Yehuda Richmond MD [facility] History of Present Illness History of Present Illness Consult date/time: 05/03/22 15:35 Consult reason: congestive heart failure Reason For Visit: chf Narrative: This is a 76-year-old gentleman who has a longstanding patient of [employer] with ischemic heart disease who now has significant ischemic cardiomyopathy as well as advanced renal failure. I am seeing him at the request of the hospitalist for assistance with management of volume overload. The patient has been seen by the hospitalist as well as by his cuff setter earlier today. Mr. Morrell has a long history of coronary artery disease with 2 previous coronary bypass operations. As I dictated in previous consultation notes he is no longer candidate for any further revascularization procedures of any kind. He is known to have total occlusion of all of his minto coronary circulation and only 1 remaining saphenous vein graft to the LAD in terms of his coronary perfusion. He has not had any chest pain or ischemic symptoms in a long time. He has been having a lot of difficulty recently with volume overload and frequent admissions with shortness of breath. We have been treating this medically with diuresing him when he comes into the hospital. Recently I placed him on Entresto which has been stopped a couple of times once because of hypotension and once because of hyperkalemia. The patient does state that when he was taking his Entresto he did feel better. He came into the hospital now couple of days ago with symptoms of fluid overload. His renal function is very poor. His BUN is currently 85 with a creatinine of 3.6. He according to the cuff setter has essentially indicated that they have been following Mr. Morrell's renal function for some time and he now will require hemodialysis for effective volume control. When I entered the room to see him today he is in good spirits which is remarkable given all these problems he offers no other complaints. Apparently a surgical consult has been requested to establish dialysis access. His clopidogrel has been placed on hold in anticipation of that. Review of Systems Constitutional: Constitutional: Reports lethargy Eyes: Eyes: Reports no additional eye complaints ENT: Reports system reviewed and no additional complaints, except as documented Cardiovascular: Cardiovascular: Reports as per HPI Respiratory: Respiratory: Reports dyspnea Gastrointestinal: Gastrointestinal: Reports no additional gastrointestinal complaints Musculoskeletal: Musculoskeletal: Reports arthralgias Integumentary/Breasts: Skin/Breast: Reports system reviewed and no additional complaints, except as docu Neurologic: Reports system reviewed and no additional complaints, except as documented Endocrine: Endocrine: Reports no additional endocrine complaints Hematologic/Lymphatic: Hematologic/Lymphatic: Reports no additional hematologic/lymphatic complaints Allergic/Immunologic: Allergic
[2022-05-03 16:15] LABS: Glucose Point of Care 118 mg/dl (65-105)
--- NOTE | 2022-05-03 17:00 | PM.CNGS ---
Assessment and Plan Assessment and plan (1) CKD stage 4 due to type 2 diabetes mellitus: Code(s): E11.22 - Type 2 diabetes mellitus with diabetic chronic kidney disease; N18.4 - Chronic kidney disease, stage 4 (severe) Status: Acute (2) Encounter for insertion of tunneled central venous catheter (CVC) with port: Code(s): Z45.2 - Encounter for adjustment and management of vascular access device Status: Acute Assessment and Plan: PLANNED PLACE TUNNELED DURA FLOW CATHETER UNDER FLUOROSCOPY FOR DIALYSIS ACCESS 05/04/2022. History of Present Illness Consult details Consult date: 05/03/22 Reason for consult: other (Placed tunneled CVC for dialysis) Requesting physician: Huber Christian MD [facility] Past Medical History Medical History Abdominal aortic aneurysm Acute on chronic combined systolic and diastolic CHF (congestive heart failure) Arthritis Ascites Carotid stenosis, bilateral Carpal tunnel syndrome Chronic anemia Chronic kidney disease, stage 4 (severe) CKD stage 4 due to type 2 diabetes mellitus COPD (chronic obstructive pulmonary disease) Deep venous thrombosis Essential hypertension Gastroesophageal reflux disease Heart failure with reduced ejection fraction Echo in 07/2021: 1. Technically difficult study with limited views. 2. Moderately reduced LF function with an EF estimated at 30-35% with hypokinesis of the mid to basal anterolateral, inferior, anterior, and basal inferoseptal arroyo with relative sparing of the apex. 3. Mildly increased LV wall thickness. 4. Left atria is moderately enlarged. 5. Mild tricuspid valve regurgitation. 6. Severe pulmonary hypertension with an estimated pulmonary arterial systolic pressure of 65 mmHg. Hypothyroidism Insulin dependent type 2 diabetes mellitus Mixed hyperlipidemia Nonsustained ventricular tachycardia Obstructive sleep apnea Intolerant to CPAP. Wears oxygen at nighttime. Pancreatitis Peripheral vascular disease Psoriasis Umbilical hernia without obstruction and without gangrene Vertigo Volume overload Surgical History Surgical History H/O abdominal surgery Revascularization to renal arteries and mesenteric artery H/O fasciotomy Right leg History of cataract extraction History of embolectomy Right leg History of stent insertion of renal artery History of tonsillectomy Hx of CABG Initially 5 vessel CABG and later on he had 1 that was redone now for those vessels are occluded he has collateral only the saphenous vein graft to the Left anterior descending is patent and otherwise his coronary arteries are occluded and all depend on the graft flow. Hx of cardiac catheterization Multiple times Presence of combination internal cardiac defibrillator (ICD) and pacemaker S/P carotid endarterectomy Family History Family History Mother Hypertension Family history of coronary artery disease Father Acute myocardial infarction Family history of coronary artery disease Sibling Heart disease Hyperlipidemia Social History Social History Social History: Surrogate decision maker: Nephew. Code status: Full code. Smoking packs per day: 1 Smoking cigarettes per day: 20.0 Years smoked: 25 Smoking pack-years: 25.00 Smoking status: Former smoker Second hand tobacco smoke exposure: Yes Smoking end date: 11/12/87 Alcohol intake: never Substance use: never Substance use type: does not use Additional living arrangements comments: Lives in his own home in [place]. No children. 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 Spiritual care concerns: No Meds Home Medications and Allergies Home Medications Medication Instructions Recorded Confirmed Type atorvasta
--- NOTE | 2022-05-03 17:23 | PM.IMPN ---
Progress Note: A&P Assessment and Plan (1) Acute on chronic combined systolic and diastolic CHF (congestive heart failure): Code(s): I50.43 - Acute on chronic combined systolic (congestive) and diastolic (congestive) heart failure Status: Acute Assessment and Plan: Patient has a well-known history of ischemic cardiomyopathy. Patient is in acute on chronic systolic heart failure. Will continue to diurese patient with IV Lasix and consult Cardiology for any further recommendations regarding diuresis. Patient does have a significant pleural effusion, and Interventional Radiology has been consulted for further recommendations regarding possible thoracentesis regarding the effusion. (2) Pleural effusion: Code(s): J90 - Pleural effusion, not elsewhere classified Status: Acute Assessment and Plan: Interventional Radiology has been consulted regarding possible ultrasound-guided thoracentesis. Do appreciate further recommendations. (3) CKD stage 4 due to type 2 diabetes mellitus: Code(s): E11.22 - Type 2 diabetes mellitus with diabetic chronic kidney disease; N18.4 - Chronic kidney disease, stage 4 (severe) Status: Acute Assessment and Plan: Patient's chronic kidney disease at baseline at this time. Nephrology has been consulted for further recommendations regarding diuresis and possible medical changes if needed. Plan is for patient to get a catheter for dialysis to be arranged for peritoneal dialysis outpatient (4) Ascites: Qualifiers: Ascites type: other type Qualified Code(s): R18.8 - Other ascites Code(s): R18.8 - Other ascites Status: Acute Assessment and Plan: Interventional Radiology has been consulted for possible paracentesis. Due appreciating further recommendations. Subjective Date/time seen: 05/03/22 17:23 Interval history: Patient sitting up in bed, alert and oriented, talkative. Denies any overnight events. States he feels a little better than when he came in. No chest pain, shortness a breath, nausea vomiting diarrhea, fevers or chills. Review of Systems Review of Systems: Twelve point review of systems was reviewed and is negative except as noted in the HPI Exam Narrative: General: Patient resting comfortably in bed, no acute distress HEENT: Atraumatic, normocephalic, mucous membranes moist CV: Regular rate and rhythm, S1, S2, no murmur Lungs: Clear to auscultation bilaterally, no rales or crackles noted, no wheezes, good air entry Abdomen: Soft, nontender, nondistended Extremities: Normal to inspection, no edema noted Skin: No rashes noted, no lesions or wounds seen Psych: Euthymic, normal affect Neuro: Cranial nerves 2-12 grossly intact, strength 5/5 upper and lower extremities noted Objective Data Vital Signs Vital Signs: Vital Signs - 24 hr 05/02/22 19:07 05/02/22 17:30 05/02/22 17:44 Temperature Pulse Rate 66 68 66 Respiratory Rate 18 19 Blood Pressure 114/52 L 118/55 L Pulse Oximetry 96 93 Oxygen Delivery 05/02/22 17:45 05/02/22 18:00 05/02/22 18:15 Temperature Pulse Rate 65 68 68 Respiratory Rate 26 H 27 H 15 Blood Pressure Pulse Oximetry 96 93 95 Oxygen Delivery 05/02/22 19:55 05/02/22 23:23 05/02/22 22:00 Temperature 97.1 F L Pulse Rate 87 72 Respiratory Rate 22 H Blood Pressure 102/55 L Pulse Oximetry 93 Oxygen Delivery Room Air 05/03/22 00:00 05/02/22 23:55 05/02/22 20:00 Temperature 96.7 F L Pulse Rate 75 76 53 L Respiratory Rate 16 Blood Pressure 118/56 L Pulse Oximetry 94 Oxygen Delivery 05/03/22 02:00 05/03/22 04:00 05/03/22 04:00 Temperature Pulse Rate 76 74 Respiratory Rate Blood Pressure Pulse Oximetry Oxygen Delivery Room Air 05/03/22 04:00 05/03/22 06:00 05/03/22 07:58 Temperature 97.4 F L 97.9 F Pulse Rate 74 76 82 Respiratory Rate 16 16 Blood Pressure 121/49 L 117/60 Pulse Oximetry 9
[2022-05-03 20:43] LABS: Glucose Point of Care 144 mg/dl (65-105)
[2022-05-03] MEDS: CHOLECALCIFEROL 1,000 UNITS TABLET 5000 UNITS PO (20:48)
[2022-05-03] MEDS: HEPARIN SODIUM 5,000 UNITS/ML VIAL 5000 UNITS SUB-Q (20:48)
[2022-05-04] VITALS (18 sets, daily range): BP systolic 111–134; BP diastolic 48–72; PULSE 60–74; RESP 16–20; TEMP 36.2–36.9; O2SAT 91–100
[2022-05-04 06:06] LABS: Albumin Level 3.4 g/dL (3.5-5.1); Anion Gap 9 mmol/L (8-16); Blood Urea Nitrogen 92 mg/dL (9-20); Calcium 8.4 mg/dL (8.4-10.2); Carbon Dioxide 20 mmol/L (22-30); Chloride 112 mmol/L (98-107); Estimated CRCL calculation 17 ml/min; Estimated Glomerular Filt Rate 16; Glucose 113 mg/dL (65-110); Magnesium 1.9 mg/dL (1.6-2.3); Phosphorus 4.9 mg/dL (2.5-4.5); Potassium 4.8 mmol/L (3.4-5.0); Sodium 141 mmol/L (137-145)
[2022-05-04 07:54] LABS: Glucose Point of Care 101 mg/dl (65-105)
[2022-05-04] MEDS: carvediloL 12.5 MG TABLET PO ×2 (09:43→21:14)
[2022-05-04] MEDS: LEVOTHYROXINE SODIUM 50 MCG TABLET PO (09:43)
[2022-05-04] MEDS: ISOSORBIDE MONONITRATE 60 MG TAB.ER.24H PO (09:43)
[2022-05-04] MEDS: OPTI-GEN TAB 1 TABLET PO (09:43)
[2022-05-04] MEDS: ATORVASTATIN 40 MG TABLET 80 MG PO (09:44)
[2022-05-04] MEDS: FUROSEMIDE INJ 40 MG/4 ML VIAL IV PUSH ×2 (09:44→21:14)
[2022-05-04] MEDS: ASPIRIN 81 MG ENTERIC TABLET PO (09:44)
--- NOTE | 2022-05-04 11:01 | PM.PNCARD ---
Progress Note: A&P Assessment and Plan (1) Acute on chronic combined systolic and diastolic CHF (congestive heart failure): Code(s): I50.43 - Acute on chronic combined systolic (congestive) and diastolic (congestive) heart failure Status: Acute Assessment and Plan: Severe ischemic cardiomyopathy. Patient presents once again in acute decompensated heart failure. Inability to optimize medical therapy in the past because of hypotension and hyperkalemia. Patient is undergoing placement of dialysis catheter today. Hopefully with the addition of dialysis we can optimize his medical regimen with Entresto in hopes of avoiding frequent readmissions. For now, continue diuresis with IV furosemide. We will begin to adjust his medical regimen tomorrow following dialysis. Subjective Date/time seen: 05/04/22 11:01 Cardiology follow up for CHF Feels a little better today. Breathing ok. Complaining of abdominal fullness. Plan for HD catheter placement today. Review of Systems Constitutional: Constitutional: Reports lethargy Eyes: Eyes: Reports no additional eye complaints ENT: Reports system reviewed and no additional complaints, except as documented Cardiovascular: Cardiovascular: Reports as per HPI and Reports dyspnea Respiratory: Respiratory: Reports dyspnea Gastrointestinal: Gastrointestinal: Reports no additional gastrointestinal complaints Musculoskeletal: Musculoskeletal: Reports arthralgias Integumentary/Breasts: Skin/Breast: Reports system reviewed and no additional complaints, except as docu Neurologic: Reports system reviewed and no additional complaints, except as documented Endocrine: Endocrine: Reports no additional endocrine complaints Hematologic/Lymphatic: Hematologic/Lymphatic: Reports no additional hematologic/lymphatic complaints Allergic/Immunologic: Allergic/Immunologic: Reports no additional allergic/immunologic complaints Exam Const: General: comfortable and in distress Other: Chronically ill-appearing gentleman sitting on the edge of the bed HENMT: Mouth: Yes dry mucous membranes Eyes: Sclera: sclerae normal Pupils: Equal, round and reactive pupils present Neck: Neck: supple Other: No carotid bruits, patient does have about 2-3 cm of JVD Resp: Effort & Inspection: normal respiratory effort Auscultation: clear to auscultation bilaterally Other: Dullness L base Cardio: Rate: regular rate Rhythm: regular rhythm Heart sounds: no murmurs GI: GI Palp: Yes Firmness to palpation present (GI) Auscultation: normal bowel sounds Skin: General skin exam: normal color Neuro: Cranial nerves: Yes Equal, round and reactive pupils present Other: Normal cognition Extrem: Other: Patient has moderate bilateral lower extremity edema Objective Data Vital Signs Vital Signs: Vital Signs - 24 hr 05/03/22 12:00 05/03/22 16:00 05/03/22 12:00 Temperature 36.6 C 36.2 C L Pulse Rate 79 68 Respiratory Rate 20 22 H Blood Pressure 91/42 L 114/46 L Pulse Oximetry 94 97 Oxygen Delivery Room Air 05/03/22 16:00 05/03/22 17:34 05/03/22 12:00 Temperature Pulse Rate 78 Respiratory Rate Blood Pressure Pulse Oximetry 97 Oxygen Delivery Room Air Room Air 05/03/22 14:00 05/03/22 16:00 05/03/22 18:00 Temperature Pulse Rate 72 70 73 Respiratory Rate Blood Pressure Pulse Oximetry Oxygen Delivery 05/03/22 20:00 05/03/22 20:48 05/03/22 20:00 Temperature 36.2 C L Pulse Rate 75 77 Respiratory Rate 20 Blood Pressure 111/54 L Pulse Oximetry 95 Oxygen Delivery Room Air 05/03/22 23:52 05/03/22 23:43 05/03/22 20:00 Temperature 36.2 C L Pulse Rate 75 82 Respiratory Rate 18 Blood Pressure 125/70 Pulse Oximetry 95 Oxygen Delivery Room Air 05/03/22 22:00 05/04/22 00:00 05/04/22 02:00 Temperature Pulse Rate 75 74 71 Respiratory Rate Blood Pressure Pulse Oximetry Oxygen Delivery
--- NOTE | 2022-05-04 11:35 | WPDHPUPDATE1 ---
History and Physical Update Update Date/Time: 05/04/22 11:35 History and Physical has been reviewed, including an updated exam of the patient. There are NO changes in the patient's condition. Risks, benefits, and alternatives have been discussed and questions answered. Patient agrees to proceed with procedure.
--- NOTE | 2022-05-04 11:44 | WPDANESPN ---
Anes - Prog Note Post-Op Date/Time: 05/04/22 11:44 Vital Signs: Last Vital Signs Temp 36.9 C 05/04/22 08:00 Pulse 71 05/04/22 08:00 Resp 16 05/04/22 08:00 BP 134/54 L 05/04/22 08:00 Pulse Ox 95 05/04/22 08:00 O2 Del Method Room Air 05/04/22 08:00 Pain Score (VAS): 0 I/O: Intake & Output 05/03/22 05/04/22 05/04/22 23:59 07:59 15:59 Intake Total 490 300 Output Total 600 250 50 Balance -110 50 -50 Laboratory Tests 05/03/22 04:40 05/04/22 05:26 05/03/22 05/03/22 05/03/22 07:50 10:38 12:48 Sodium Potassium Chloride Carbon Dioxide Anion Gap BUN Creatinine Estim Creat Clear Calc Estimated GFR Glucose POC Capillary Glucose 68 99 Calcium Phosphorus Magnesium Albumin Hep Bs Antibody Negative Hepatitis C Ab Screen Negative Blood Type Antibody Screen 05/03/22 05/03/22 05/03/22 16:09 17:55 20:41 Sodium Potassium Chloride Carbon Dioxide Anion Gap BUN Creatinine Estim Creat Clear Calc Estimated GFR Glucose POC Capillary Glucose 118 H 144 H Calcium Phosphorus Magnesium Albumin Hep Bs Antibody Hepatitis C Ab Screen Blood Type O Positive Antibody Screen Negative 05/04/22 05/04/22 05:26 07:40 Sodium 141 Potassium 4.8 Chloride 112 H Carbon Dioxide 20 L Anion Gap 9 BUN 92 H Creatinine 3.70 H Estim Creat Clear Calc 17 Estimated GFR 16 L Glucose 113 H POC Capillary Glucose 101 Calcium 8.4 Phosphorus 4.9 H Magnesium 1.9 Albumin 3.4 L Hep Bs Antibody Hepatitis C Ab Screen Blood Type Antibody Screen Patient Feedback: Patient satisfied with anesthetic care.
--- NOTE | 2022-05-04 12:00 | PM.PNNEP ---
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 he is going to get a permacath today. 2. The patient has hypertension. This is well controlled. 3. The patient has diabetes. He is on insulin sliding scale plus Accu-Cheks per hospitalist. 4. The patient has volume overload. he is on diuretics. will remove fluid tomorrow on HD 5. He has hypothyroidism is on supplements. 6. He has hyperlipidemia and is on atorvastatin. Subjective Date/time seen: 05/04/22 12:00 Interval history: alert. didn't sleep well eating okay. some nausea. Review of Systems Cardiovascular: Cardiovascular: Reports no additional cardiovascular complaints Respiratory: Respiratory: Reports no additional respiratory complaints Gastrointestinal: Gastrointestinal: Reports no additional gastrointestinal complaints Genitourinary: Genitourinary: Reports no additional male genitourinary complaints Exam Narrative: WDWN in NAD skin no rash head ncat lungs clear cor reg no rub abd BS+ nontender and soft ext no edema. Objective Data Vital Signs Vital Signs: Vital Signs - 24 hr 05/03/22 16:00 05/03/22 16:00 05/03/22 17:34 Temperature 36.2 C L Pulse Rate 68 Respiratory Rate 22 H Blood Pressure 114/46 L Pulse Oximetry 97 97 Oxygen Delivery Room Air Room Air 05/03/22 16:00 05/03/22 18:00 05/03/22 20:00 Temperature 36.2 C L Pulse Rate 70 73 75 Respiratory Rate 20 Blood Pressure 111/54 L Pulse Oximetry 95 Oxygen Delivery 05/03/22 20:48 05/03/22 20:00 05/03/22 23:52 Temperature Pulse Rate 77 Respiratory Rate Blood Pressure Pulse Oximetry Oxygen Delivery Room Air Room Air 05/03/22 23:43 05/03/22 20:00 05/03/22 22:00 Temperature 36.2 C L Pulse Rate 75 82 75 Respiratory Rate 18 Blood Pressure 125/70 Pulse Oximetry 95 Oxygen Delivery 05/04/22 00:00 05/04/22 02:00 05/04/22 04:00 Temperature Pulse Rate 74 71 Respiratory Rate Blood Pressure Pulse Oximetry Oxygen Delivery Room Air 05/04/22 04:00 05/04/22 04:00 05/04/22 06:00 Temperature 36.2 C L Pulse Rate 70 67 68 Respiratory Rate 16 Blood Pressure 117/54 L Pulse Oximetry 97 Oxygen Delivery 05/04/22 08:00 05/04/22 08:00 05/04/22 12:00 Temperature 36.9 C 36.3 C L Pulse Rate 71 63 Respiratory Rate 16 20 Blood Pressure 134/54 L 120/49 L Pulse Oximetry 95 98 Oxygen Delivery Room Air 05/04/22 12:39 05/04/22 08:00 Temperature 36.9 C Pulse Rate 67 66 Respiratory Rate 20 Blood Pressure 129/60 Pulse Oximetry 96 Oxygen Delivery Room Air Intake/Output Intake/Output: Intake & Output 05/01/22 05/02/22 05/03/22 05/04/22 23:59 23:59 23:59 23:59 Intake Total 1510 300 Output Total 1850 300 Balance -340 0 Meds/Results Medications: Active Medications Generic Name Dose Route Start Last Admin Trade Name Freq PRN Reason Stop Dose Admin Acetaminophen 650 mg 05/02/22 17:21 Acetaminophen 325 Mg Tablet PO Q4H PRN Mild Pain (1-3) or Fever Aspirin 81 mg 05/03/22 09:00 05/04/22 09:44 Aspirin 81 Mg Enteric Tablet PO 81 mg DAILY JEFF Administration Atorvastatin Calcium 80 mg 05/03/22 09:00 05/04/22 09:44 Atorvastatin 40 Mg Tablet PO 80 mg DAILY JEFF Administration Carvedilol 12.5 mg 05/03/22 09:00 05/04/22 09:43 Carvedilol 12.5 Mg Tablet PO 12.5 mg Q12HR JEFF Administration Clopidogrel Bisulfate 75 mg 05/03/22 09:00 05/03/22 08:28 Clopidogrel Bisulfate 75 Mg Tablet PO Not Given DAILY JEFF Dextrose 12.5 gm 05/03/22 02:26 Dextrose 50% 25 Gm/50 Ml Syringe IV PUSH PRN PRN Hypoglycemia Protocol Furosemide 40 mg 05/02/22 21:00 05/04/22 09:44 Furosemide Inj 40 Mg/4 Ml Vial IV PUSH 40 mg Q12HR JEFF Administration Glucagon 1 mg 05/03/22 02:26 Glucagon For Inj 1 Mg Vial IM PRN PRN Hypog
[2022-05-04 12:01] LABS: Glucose Point of Care 103 mg/dl (65-105)
--- NOTE | 2022-05-04 13:10 | WPDANESEPPF ---
Anes - Initial Pre Proc Eval Procedure: Operation Date: 05/04/22 14:00 Proposed Procedures p Placement Tunneled Duraflow Central Venous Catheter Under Fluroscopy - Brennan Aviles MD Date/Time: 05/04/22 13:10 Surgeon: Sarah Correa DO Pre Op Diagnosis: chf Patient Data Age: 76 Gender: M Height: 1.68 m Weight: 91.5 kg Last Vital Signs Temp 36.9 C 05/04/22 12:39 Pulse 67 05/04/22 12:39 Resp 20 05/04/22 12:39 BP 129/60 05/04/22 12:39 Pulse Ox 96 05/04/22 12:39 O2 Del Method Room Air 05/04/22 12:39 Allergies Allergy/AdvReac Type Severity Reaction Status Date / Time Penicillins Allergy Unknown UNKNOWN Verified 05/03/22 08:20 A CHILD,Unknown Home Medications Medication Instructions Recorded Confirmed Type atorvastatin 80 mg tablet (Lipitor) 80 mg PO DAILY 09/23/19 05/02/22 History vit C 250 mg-vit E 90 mg-zinc 40 1 cap PO Q12H 10/20/20 05/02/22 History mg-copper 1 [id number] capsule (PreserVision AREDS-2) aspirin 81 mg tablet,delayed 81 mg PO DAILY 01/19/21 05/02/22 History release (Adult Aspirin Regimen) cholecalciferol (vitamin D3) 125 125 mcg PO HS 08/02/21 05/02/22 History mcg (5,000 unit) capsule insulin glargine 100 unit/mL (3 5 unit subcut QAM 08/02/21 05/02/22 History mL) subcutaneous pen (Basaglar KwikPen U-100 Insulin) isosorbide mononitrate 60 mg 60 mg PO DAILY 08/02/21 05/02/22 History tablet,extended release 24 hr levothyroxine 50 mcg tablet 50 mcg PO DAILY #90 tabs 08/29/21 05/02/22 Rx carvedilol 12.5 mg tablet (Coreg) 12.5 mg PO Q12HR 30 days #60 tabs 03/30/22 05/02/22 Rx clopidogrel 75 mg tablet (Plavix) 75 mg PO DAILY 05/02/22 05/02/22 History furosemide 80 mg tablet (Lasix) 40 mg PO BID 05/02/22 05/02/22 History Laboratory Tests 05/03/22 05/03/22 05/03/22 10:38 16:09 17:55 Sodium Potassium Chloride Carbon Dioxide Anion Gap BUN Creatinine Estim Creat Clear Calc Estimated GFR Glucose POC Capillary Glucose 118 mg/dl H mg/dl (65-105) Calcium Phosphorus Magnesium Albumin Hep Bs Antibody Negative Hepatitis C Ab Screen Negative (Negative) Blood Type O Positive Antibody Screen Negative 05/03/22 05/04/22 05/04/22 20:41 05:26 07:40 Sodium 141 mmol/L mmol/L (137-145) Potassium 4.8 mmol/L mmol/L (3.4-5.0) Chloride 112 mmol/L H mmol/L (98-107) Carbon Dioxide 20 mmol/L L mmol/L (22-30) Anion Gap 9 mmol/L mmol/L (8-16) BUN 92 mg/dL H mg/dL (9-20) Creatinine 3.70 mg/dL H mg/dL (0.7-1.3) Estim Creat Clear Calc 17 ml/min ml/min Estimated GFR 16 L (59 - ) Glucose 113 mg/dL H mg/dL (65-110) POC Capillary Glucose 144 mg/dl H mg/dl 101 mg/dl mg/dl (65-105) (65-105) Calcium 8.4 mg/dL mg/dL (8.4-10.2) Phosphorus 4.9 mg/dL H mg/dL (2.5-4.5) Magnesium 1.9 mg/dL mg/dL (1.6-2.3) Albumin 3.4 g/dL L g/dL (3.5-5.1) Hep Bs Antibody Hepatitis C Ab Screen Blood Type Antibody Screen 05/04/22 11:54 Sodium Potassium Chloride Carbon Dioxide Anion Gap BUN Creatinine Estim Creat Clear Calc Estimated GFR Glucose POC Capillary Glucose 103 mg/dl mg/dl (65-105) Calcium Phosphorus Magnesium Albumin Hep Bs Antibody Hepatitis C Ab Screen Blood Type Antibody Screen Patient hx anesthesia problems: none Family hx anesthesia problems: none Results Review: All pre-operative results and documents have been reviewed as part of the pre-operative evaluation. PMFS
--- NOTE | 2022-05-04 13:26 | SUR.PREOP ---
Discussed hair removal with Dr Aviles and patient. Hair needs removed to cheek on right side. Patient agrees to have ramirez removed all the way accross face rather than having a lop sided ramirez. States It'll grow back .
[2022-05-04] MEDS: ceFAZolin 2 GM/D5W 50 ML 2 GM/50 ML BAG IVPB (13:45)
[2022-05-04] MEDS: HEPARIN SODIUM 5,000 UNITS/ML VIAL 5000 UNITS SUB-Q (13:45)
[2022-05-04] MEDS: HEPARIN SODIUM, PORCINE 10,000 UNITS/10 ML VIAL 10000 UNITS IV PUSH (14:47)
[2022-05-04] MEDS: LIDO 1%/EPINEPHRINE/PF 1:200,000 30 ML VIAL XX (14:49)
--- NOTE | 2022-05-04 15:30 | P.OP_ITS ---
Procedure Note - Detailed Date of Procedure 05/04/22 Pre-op Diagnosis End-stage renal disease, inadequate venous access for dialysis Post-op Diagnosis Same Procedure Performed Placement right subclavian tunneled dura flow central venous catheter under fluoroscopy Surgeon Brennan Aviles MD Weigher Operator Kaylan Snow PACKAGING MATERIALS INSPECTOR PACKAGING MATERIALS INSPECTOR Anesthesia General and Local (1% lidocaine with epinephrine) Indications Patient has chronic kidney disease which has progressed to the point that nephrology recommends proceeding with dialysis. We were asked to place a tunneled central venous catheter for this purpose. Findings Patient had a right carotid endarterectomy with large scar in the right neck. Right subclavian tunneled dura flow catheter was then placed in this location rather than the right internal jugular position. Description of Procedure The patient was taken to surgery and prior to induction of anesthesia, he vomited a substantial amount of gastric content. No food was noted. He was then stabilized and we proceeded with induction of general endotracheal anesthesia. While prep and drape was going on, he became bradycardic. This resolved and we were able to go ahead with the surgery. The right subclavian and right neck were prepped and draped. Some local anesthetic was infiltrated into the right upper neck and attempts to cannulate the right IJ were made with a 22 gauge needle. No blood flow returned. This was abandoned and we went to the right subclavian position. With the patient in Trendelenburg and after local anesthetic had been infiltrated, I was able to cannulate the right subclavian vein. A guidewire passed into the superior vena cava as evidenced by the appearance on C-arm fluoroscopy. We then placed the patient back in prone position with the head slightly elevated. I used fluoroscopy and measured the general location that the dura flow catheter would traverse so that the end would be in the distal SVC right atrial junction. A 24 cm dura flow catheter was chosen. Two counter incisions as well as an incision at the exit site of the guidewire were marked on the right chest. Local was infiltrated at each of these sites. Incisions were made. The dura flow catheter was then tunneled retrograde from the lower most incision to the exit site where the guidewire was emanating. We then passed serial dilators over the guidewire and into the superior vena cava as evidenced by their appearance on C-arm fluoroscopy. Finally a dilator with sleeve was passed into the superior vena cava. The guidewire and introducer were removed. The dura flow catheter end was able to be passed through the sleeve and into the superior vena cava. The sleeve was then removed. We checked the position of the dura flow catheter. The tip was in the distal SVC or right atrial position. There were no kinks in the path of the catheter. Both ports aspirated blood and flushed easily with heparin. Each port received a final flush of heparin. 4-0 Vicryl subcuticular suture were used to close all the incisions in the left chest. The catheter was sutured to the skin with 3-0 nylon. A hemostatic ring was placed at the exit site of the catheter as well. The catheter site was dressed with transparent dressing. Sponge and needle counts were correct x2. Implants 24 cm dura flow dual lumen catheter Estimated Blood Loss -5 Urine Output 50 Drains No Packing No Pathology None sent Complications No immediate complications Condition Stable Disposition PACU [facility] Billing Surgery - Charge Forward: Surgery Billing (Placement tunneled dura flow central venous catheter under fluoroscopy.)
[2022-05-04 15:57] LABS: Glucose Point of Care 121 mg/dl (65-105)
--- NOTE | 2022-05-04 16:39 | PM.IMPN ---
Progress Note: A&P Assessment and Plan (1) Acute on chronic combined systolic and diastolic CHF (congestive heart failure): Code(s): I50.43 - Acute on chronic combined systolic (congestive) and diastolic (congestive) heart failure Status: Acute Assessment and Plan: Patient has a well-known history of ischemic cardiomyopathy. Patient is in acute on chronic systolic heart failure. Will continue to diurese patient with IV Lasix and consult Cardiology for any further recommendations regarding diuresis. Patient does have a significant pleural effusion, and Interventional Radiology has been consulted for further recommendations regarding possible thoracentesis regarding the effusion. (2) Pleural effusion: Code(s): J90 - Pleural effusion, not elsewhere classified Status: Acute Assessment and Plan: Interventional Radiology has been consulted regarding possible ultrasound-guided thoracentesis. Do appreciate further recommendations. (3) CKD stage 4 due to type 2 diabetes mellitus: Code(s): E11.22 - Type 2 diabetes mellitus with diabetic chronic kidney disease; N18.4 - Chronic kidney disease, stage 4 (severe) Status: Acute Assessment and Plan: Patient's chronic kidney disease at baseline at this time. Nephrology has been consulted for further recommendations regarding diuresis and possible medical changes if needed. Plan is for patient to get a catheter for dialysis to be arranged for peritoneal dialysis outpatient (4) Ascites: Qualifiers: Ascites type: other type Qualified Code(s): R18.8 - Other ascites Code(s): R18.8 - Other ascites Status: Acute Assessment and Plan: Interventional Radiology has been consulted for possible paracentesis. Due appreciating further recommendations. Subjective Date/time seen: 05/04/22 16:39 Interval history: Patient doing well, no overnight events. Getting HD catheter placed today. No chest pain or shortness of breath. No fevers or chills. No nausea vomiting or diarrhea. Review of Systems Review of Systems: Twelve point review of systems was reviewed and is negative except as noted in the HPI Exam Narrative: General: Patient resting comfortably in bed, no acute distress HEENT: Atraumatic, normocephalic, mucous membranes moist CV: Regular rate and rhythm, S1, S2, no murmur Lungs: Clear to auscultation bilaterally, no rales or crackles noted, no wheezes, good air entry Abdomen: Soft, nontender, nondistended Extremities: Normal to inspection, no edema noted Skin: No rashes noted, no lesions or wounds seen Psych: Euthymic, normal affect Objective Data Vital Signs Vital Signs: Vital Signs - 24 hr 05/03/22 17:34 05/03/22 18:00 05/03/22 20:00 Temperature 97.1 F L Pulse Rate 73 75 Respiratory Rate 20 Blood Pressure 111/54 L Pulse Oximetry 97 95 Oxygen Delivery Room Air Oxygen Flow Rate 05/03/22 20:48 05/03/22 20:00 05/03/22 23:52 Temperature Pulse Rate 77 Respiratory Rate Blood Pressure Pulse Oximetry Oxygen Delivery Room Air Room Air Oxygen Flow Rate 05/03/22 23:43 05/03/22 20:00 05/03/22 22:00 Temperature 97.1 F L Pulse Rate 75 82 75 Respiratory Rate 18 Blood Pressure 125/70 Pulse Oximetry 95 Oxygen Delivery Oxygen Flow Rate 05/04/22 00:00 05/04/22 02:00 05/04/22 04:00 Temperature Pulse Rate 74 71 Respiratory Rate Blood Pressure Pulse Oximetry Oxygen Delivery Room Air Oxygen Flow Rate 05/04/22 04:00 05/04/22 04:00 05/04/22 06:00 Temperature 97.2 F L Pulse Rate 70 67 68 Respiratory Rate 16 Blood Pressure 117/54 L Pulse Oximetry 97 Oxygen Delivery Oxygen Flow Rate 05/04/22 08:00 05/04/22 08:00 05/04/22 12:00 Temperature 98.4 F 97.4 F L Pulse Rate 71 63 Respiratory Rate 16 20 Blood Pressure 134/54 L 120/49 L Pulse Oximetry 95 98 Oxygen Delivery Room Air Oxygen Flow Rat
[2022-05-04] MEDS: CHOLECALCIFEROL 1,000 UNITS TABLET 5000 UNITS PO (21:14)
--- NOTE | 2022-05-04 21:45 | PC.NURSE ---
This patient, Jaime Morrell, was transferred to [facility] on 05/04/22 at 2145. Personal belongings sent with patient. Report given to Huber PECK. Appropriate documentation sent with patient.
[2022-05-05] VITALS (20 sets, daily range): BP systolic 106–133; BP diastolic 45–69; PULSE 68–85; RESP 16–20; TEMP 36.4–37; O2SAT 93–95
[2022-05-05] MEDS: LEVOTHYROXINE SODIUM 50 MCG TABLET PO (05:57)
[2022-05-05 06:13] LABS: Albumin Level 3.4 g/dL (3.5-5.1); Anion Gap 11 mmol/L (8-16); Blood Urea Nitrogen 91 mg/dL (9-20); Calcium 8.7 mg/dL (8.4-10.2); Carbon Dioxide 20 mmol/L (22-30); Chloride 110 mmol/L (98-107); Estimated CRCL calculation 16 ml/min; Estimated Glomerular Filt Rate 14; Glucose 155 mg/dL (65-110); Phosphorus 5.9 mg/dL (2.5-4.5); Potassium 5.5 mmol/L (3.4-5.0); Sodium 141 mmol/L (137-145)
[2022-05-05 07:58] LABS: Glucose Point of Care 140 mg/dl (65-105)
--- NOTE | 2022-05-05 08:22 | WPDANESPN ---
Anes - Prog Note Post-Op Date/Time: 05/05/22 08:22 Vital Signs: Last Vital Signs Temp 36.6 C 05/05/22 06:00 Pulse 79 05/05/22 06:00 Resp 20 05/05/22 06:00 BP 117/65 05/05/22 06:00 Pulse Ox 95 05/05/22 06:00 O2 Del Method Room Air 05/04/22 21:10 O2 Flow Rate 2 05/04/22 16:20 Pain Score (VAS): 0 I/O: Intake & Output 05/04/22 05/05/22 05/05/22 23:59 07:59 15:59 Intake Total 50 300 Output Total 250 250 Balance -200 50 Laboratory Tests 05/03/22 04:40 05/05/22 05:52 05/04/22 05/04/22 05/05/22 11:54 15:46 05:52 Sodium 141 Potassium 5.5 H Chloride 110 H Carbon Dioxide 20 L Anion Gap 11 BUN 91 H Creatinine 4.10 H Estim Creat Clear Calc 16 Estimated GFR 14 L Glucose 155 H POC Capillary Glucose 103 121 H Calcium 8.7 Phosphorus 5.9 H Albumin 3.4 L 05/05/22 07:55 Sodium Potassium Chloride Carbon Dioxide Anion Gap BUN Creatinine Estim Creat Clear Calc Estimated GFR Glucose POC Capillary Glucose 140 H Calcium Phosphorus Albumin Patient Feedback: Patient satisfied with anesthetic care.
--- NOTE | 2022-05-05 10:15 | PM.PNCARD ---
Progress Note: A&P Assessment and Plan (1) Acute on chronic combined systolic and diastolic CHF (congestive heart failure): Code(s): I50.43 - Acute on chronic combined systolic (congestive) and diastolic (congestive) heart failure Status: Acute Assessment and Plan: Severe ischemic cardiomyopathy. Patient presents once again in acute decompensated heart failure. Inability to optimize medical therapy in the past because of hypotension and hyperkalemia. Patient s/p dialysis catheter placement yesterday. Has not received his first dialysis treatment yet. Hopefully with the addition of dialysis we can optimize his medical regimen with Entresto in hopes of avoiding frequent readmissions. For now, continue diuresis with IV furosemide. Anticipate starting Entresto tomorrow if BP is stable. Subjective Date/time seen: 05/05/22 10:15 Cardiology follow up for CHF, MELONIE Feels about the same today, thinks his breathing is slightly better. Awaiting his first HD treatment. Review of Systems Constitutional: Constitutional: Reports lethargy Eyes: Eyes: Reports no additional eye complaints ENT: Reports system reviewed and no additional complaints, except as documented Cardiovascular: Cardiovascular: Reports as per HPI and Reports dyspnea Respiratory: Respiratory: Reports dyspnea Gastrointestinal: Gastrointestinal: Reports no additional gastrointestinal complaints Musculoskeletal: Musculoskeletal: Reports arthralgias Integumentary/Breasts: Skin/Breast: Reports system reviewed and no additional complaints, except as docu Neurologic: Reports system reviewed and no additional complaints, except as documented Endocrine: Endocrine: Reports no additional endocrine complaints Hematologic/Lymphatic: Hematologic/Lymphatic: Reports no additional hematologic/lymphatic complaints Allergic/Immunologic: Allergic/Immunologic: Reports no additional allergic/immunologic complaints Exam Const: General: comfortable and in distress Other: Chronically ill-appearing gentleman sitting on the edge of the bed HENMT: Mouth: Yes dry mucous membranes Eyes: Sclera: sclerae normal Pupils: Equal, round and reactive pupils present Neck: Neck: supple Carotids: no bruits Resp: Effort & Inspection: normal respiratory effort Auscultation: clear to auscultation bilaterally Other: Dullness L base Cardio: Rate: regular rate Rhythm: regular rhythm Heart sounds: no murmurs GI: Auscultation: normal bowel sounds Skin: General skin exam: normal color Neuro: Cranial nerves: Yes Equal, round and reactive pupils present Other: Normal cognition Extrem: Other: Patient has moderate bilateral lower extremity edema Objective Data Vital Signs Vital Signs: Vital Signs - 24 hr 05/04/22 12:00 05/04/22 12:39 05/04/22 15:23 Temperature 36.3 C L 36.9 C Pulse Rate 63 67 67 Respiratory Rate 20 20 19 Blood Pressure 120/49 L 129/60 122/50 L Pulse Oximetry 98 96 91 Oxygen Delivery Room Air Simple Face Mask Oxygen Flow Rate 8 05/04/22 15:35 05/04/22 15:50 05/04/22 16:05 Temperature Pulse Rate 65 64 61 Respiratory Rate 18 20 20 Blood Pressure 123/54 L 131/56 L 130/72 Pulse Oximetry 96 97 100 Oxygen Delivery Nasal Cannula Nasal Cannula Nasal Cannula Oxygen Flow Rate 2 2 2 05/04/22 16:20 05/04/22 12:00 05/04/22 14:00 Temperature Pulse Rate 60 64 72 Respiratory Rate 20 Blood Pressure 133/58 L Pulse Oximetry Oxygen Delivery Nasal Cannula Oxygen Flow Rate 2 05/04/22 20:00 05/04/22 20:20 05/04/22 21:14 Temperature 36.4 C Pulse Rate 60 69 Respiratory Rate 18 Blood Pressure 111/48 L Pulse Oximetry 97 91 Oxygen Delivery Room Air Oxygen Flow Rate 05/04/22 20:00 05/04/22 21:10 05/04/22 22:00 Temperature 36.4 C L Pulse Rate 68 73 Respiratory Rate 20 Blood Pressure 115/57 L Pulse Oximetry 95 Oxygen Delivery Room Air Oxygen Flow Rate 05/05/22 00:00 05/05/22
--- NOTE | 2022-05-05 13:18 | PC.NURSE ---
Patient transferred to /S at 1100 via bed.
--- NOTE | 2022-05-05 13:19 | PC.NURSE ---
Patient transferred to Dialysis at 1315 via bed.
--- NOTE | 2022-05-05 14:00 | PM.PNNEP ---
Progress Note: A&P Assessment and Plan (1) End stage renal disease: Code(s): N18.6 - End stage renal disease Status: Chronic Assessment and Plan: due progression of disease from HTN, DM, cardiorenal syndrome and TITA due ongoing issues with #2 and #3 worsening renal dysfunction, initiated on renal replacement therapy/dialysis s/p PermCath placement HD today and plan HD tomorrow would like to pursue outpatient peritoneal dialysis eventually will need outpatient hemodialysis on discharge (2) Acute on chronic combined systolic and diastolic CHF (congestive heart failure): Code(s): I50.43 - Acute on chronic combined systolic (congestive) and diastolic (congestive) heart failure Status: Acute Assessment and Plan: as noted by admission labs/imaging findings diuretic therapy alone is not able to achieve euvolemia fluid removal with dialysis should help (3) Volume overload: Code(s): E87.70 - Fluid overload, unspecified Status: Chronic Assessment and Plan: s/p thoracentesis and paracentesis today fluid removal with HD today and tomorrow follow volume status (4) Chronic anemia: Code(s): D64.9 - Anemia, unspecified Status: Chronic Assessment and Plan: due to ESRD Epogen with HD follow trend of H/H (5) Essential hypertension: Code(s): I10 - Essential (primary) hypertension Status: Chronic Assessment and Plan: fluid removal should help follow trend of hemodynamics (6) Diabetes: Code(s): E11.9 - Type 2 diabetes mellitus without complications Status: Chronic Assessment and Plan: follow accuchecks on SSI and Lantus Will continue to follow. Subjective Date/time seen: 05/05/22 14:00 Chart reviewed -- assuming care from Dr. Christian; s/p thoracentesis and large volume paracentesis earlier today with almost 6L fluid removal in total; tolerating hemodialysis treatment at the time of my visit (seen on HD at ~ 1:50PM); s/p tunneled HD catheter placement yesterday; no apparent distress voiced currently. Exam Narrative: General: WD/WN male in NAD Heart: normal S1 and S2; no rub Lungs: decreased at bases Abdomen: soft, nontender, mild distension, positive bowel sounds Extremities: no cyanosis or clubbing; trace edema Skin: warm and dry Objective Data Vital Signs Vital Signs: Vital Signs Temp Pulse Resp BP Pulse Ox O2 Del Method 05/05/22 14:00 74 118/57 L 05/05/22 13:30 36.7 C 73 16 121/56 L 05/05/22 13:45 72 133/54 L 05/05/22 06:00 36.6 C 79 20 117/65 95 05/05/22 04:00 77 05/05/22 00:00 85 05/04/22 22:00 36.4 C L 73 20 115/57 L 95 05/04/22 21:10 Room Air 05/04/22 20:00 68 05/04/22 21:14 69 05/04/22 20:20 91 Room Air 05/04/22 20:00 36.4 C 60 18 111/48 L 97 Intake/Output Intake/Output: Intake & Output 05/02/22 05/03/22 05/04/22 05/05/22 23:59 23:59 23:59 23:59 Intake Total 1510 350 300 Output Total 5571 631 6746 Balance -340 250 -8190 Meds/Results Medications: Active Medications Generic Name Dose Route Start Last Admin Trade Name Arunq PRN Reason Stop Dose Admin Acetaminophen 650 mg 05/02/22 17:21 Acetaminophen 325 Mg Tablet PO Q4H PRN Mild Pain (1-3) or Fever Hydrocodone Bitart/Acetaminophen 1 tab 05/04/22 16:30 Hydrocodone/Acetaminophen (*Crx) 5-325 Mg Tablet PO Q4H PRN Pain Rated 4-6 Aspirin 81 mg 05/03/22 09:00 05/04/22 09:44 Aspirin 81 Mg Enteric Tablet PO 81 mg DAILY JEFF Administration Atorvastatin Calcium 80 mg 05/03/22 09:00 05/04/22 09:44 Atorvastatin 40 Mg Tablet PO 80 mg DAILY JEFF Administration Carvedilol 12.5 mg 05/03/22 09:00 05/05/22 11:00 Carvedilol 12.5 Mg Tablet PO Not Given Q12HR [facility] Clopidogrel Bisulfate 75 mg 05/03/22 09:00 05/03/22 08:28 Clopidogrel Bisulfate 75
--- NOTE | 2022-05-05 14:00 | P.PNNP_ITS ---
Progress Note: A&P Assessment and Plan (1) End stage renal disease: Code(s): N18.6 - End stage renal disease Status: Chronic Assessment and Plan: * due progression of disease from HTN, DM, cardiorenal syndrome and TITA * due ongoing issues with #2 and #3 worsening renal dysfunction, initiated on renal replacement therapy/dialysis * s/p PermCath placement * HD today and plan HD tomorrow * would like to pursue outpatient peritoneal dialysis eventually * will need outpatient hemodialysis on discharge (2) Acute on chronic combined systolic and diastolic CHF (congestive heart failure): Code(s): I50.43 - Acute on chronic combined systolic (congestive) and diastolic (congestive) heart failure Status: Acute Assessment and Plan: * as noted by admission labs/imaging findings * diuretic therapy alone is not able to achieve euvolemia * fluid removal with dialysis should help (3) Volume overload: Code(s): E87.70 - Fluid overload, unspecified Status: Chronic Assessment and Plan: * s/p thoracentesis and paracentesis today * fluid removal with HD today and tomorrow * follow volume status (4) Chronic anemia: Code(s): D64.9 - Anemia, unspecified Status: Chronic Assessment and Plan: * due to ESRD * Epogen with HD * follow trend of H/H (5) Essential hypertension: Code(s): I10 - Essential (primary) hypertension Status: Chronic Assessment and Plan: * fluid removal should help * follow trend of hemodynamics (6) Diabetes: Code(s): E11.9 - Type 2 diabetes mellitus without complications Status: Chronic Assessment and Plan: * follow accuchecks * on SSI and Lantus Will continue to follow. Subjective Date/time seen: 05/05/22 14:00 Chart reviewed -- assuming care from Dr. Christian; s/p thoracentesis and large volume paracentesis earlier today with almost 6L fluid removal in total; sofie ating hemodialysis treatment at the time of my visit (seen on HD at ~ 1:50PM); s/p tunneled HD catheter placement yesterday; no apparent distress voiced currently. Exam Narrative: General: WD/WN male in NAD Heart: normal S1 and S2; no rub Lungs: decreased at bases Abdomen: soft, nontender, mild distension, positive bowel sounds Extremities: no cyanosis or clubbing; trace edema Skin: warm and dry Objective Data Vital Signs Vital Signs: Vital Signs Temp Pulse Resp BP Pulse Ox O2 Del Method 05/05/22 14:00 74 118/57 L 05/05/22 13:30 36.7 C 73 16 121/56 L 05/05/22 13:45 72 133/54 L 05/05/22 06:00 36.6 C 79 20 117/65 95 05/05/22 04:00 77 05/05/22 00:00 85 05/04/22 22:00 36.4 C L 73 20 115/57 L 95 05/04/22 21:10 Room Air 05/04/22 20:00 68 05/04/22 21:14 69 05/04/22 20:20 91 Room Air 05/04/22 20:00 36.4 C 60 18 111/48 L 97 Intake/Output Intake/Output: Intake & Output 05/02/22 05/03/22 05/04/22 05/05/22 23:59 23:59 23:59 23:59 Intake Total 1510 350 300 Output Total 4725 561 8739 Balance -340 -729 -6356 Meds/Results Medications: Active Medications
[2022-05-05] MEDS: EPOETIN ALFA-EPBX 10,000 UNITS/ML VIAL 10000 UNITS IV PUSH (15:24)
[2022-05-05] MEDS: HEPARIN SODIUM 1,000 UNITS/ML VIAL 5000 UNITS (15:27)
--- NOTE | 2022-05-05 16:42 | PM.IMPN ---
Progress Note: A&P Assessment and Plan (1) Acute on chronic combined systolic and diastolic CHF (congestive heart failure): Code(s): I50.43 - Acute on chronic combined systolic (congestive) and diastolic (congestive) heart failure Status: Acute Assessment and Plan: Paracentesis post thoracentesis performed today as well as hemodialysis, appreciate cardiology and nephrology consultation (2) Pleural effusion: Code(s): J90 - Pleural effusion, not elsewhere classified Status: Acute Assessment and Plan: Thoracentesis done by IR today (3) CKD stage 4 due to type 2 diabetes mellitus: Code(s): E11.22 - Type 2 diabetes mellitus with diabetic chronic kidney disease; N18.4 - Chronic kidney disease, stage 4 (severe) Status: Acute Assessment and Plan: Appreciate nephrology consultation, hemodialysis today (4) Ascites: Qualifiers: Ascites type: other type Qualified Code(s): R18.8 - Other ascites Code(s): R18.8 - Other ascites Status: Acute Assessment and Plan: Paracentesis performed today Subjective Date/time seen: 05/05/22 16:42 Interval history: Patient had hemodialysis today as well as a paracentesis and thoracentesis. Patient states he feels tired after his procedures today. No chest pain or shortness of breath. No nausea vomiting diarrhea. No fevers or chills. No events noted. Review of Systems Review of Systems: 12 point review of systems was assessed and was negative except as noted in the HPI Exam Narrative: General: Patient resting comfortably in bed, no acute distress HEENT: Atraumatic, normocephalic, mucous membranes moist CV: Regular rate and rhythm, S1, S2, no murmur Lungs: Clear to auscultation bilaterally, no rales or crackles noted, no wheezes, good air entry Abdomen: Soft, nontender, nondistended Extremities: Normal to inspection, no edema noted Skin: No rashes noted, no lesions or wounds seen Psych: Euthymic, normal affect Objective Data Vital Signs Vital Signs: Vital Signs - 24 hr 05/04/22 20:00 05/04/22 20:20 05/04/22 21:14 Temperature 97.6 F Pulse Rate 60 69 Respiratory Rate 18 Blood Pressure 111/48 L Pulse Oximetry 97 91 Oxygen Delivery Room Air 05/04/22 20:00 05/04/22 21:10 05/04/22 22:00 Temperature 97.5 F L Pulse Rate 68 73 Respiratory Rate 20 Blood Pressure 115/57 L Pulse Oximetry 95 Oxygen Delivery Room Air 05/05/22 00:00 05/05/22 04:00 05/05/22 06:00 Temperature 97.9 F Pulse Rate 85 77 79 Respiratory Rate 20 Blood Pressure 117/65 Pulse Oximetry 95 Oxygen Delivery 05/05/22 13:45 05/05/22 14:20 05/05/22 15:00 Temperature Pulse Rate 72 73 70 Respiratory Rate Blood Pressure 133/54 L 125/58 L 133/60 Pulse Oximetry Oxygen Delivery 05/05/22 15:20 05/05/22 13:30 05/05/22 15:46 Temperature 98.0 F Pulse Rate 70 73 69 Respiratory Rate 16 Blood Pressure 117/56 L 121/56 L 126/69 Pulse Oximetry Oxygen Delivery 05/05/22 16:14 05/05/22 14:00 05/05/22 14:40 Temperature 97.6 F Pulse Rate 71 74 72 Respiratory Rate 18 Blood Pressure 123/56 L 118/57 L 127/59 L Pulse Oximetry Oxygen Delivery 05/05/22 15:40 Temperature Pulse Rate 71 Respiratory Rate Blood Pressure 127/56 L Pulse Oximetry Oxygen Delivery Intake/Output Intake/Output: Intake & Output 05/02/22 05/03/22 05/04/22 05/05/22 23:59 23:59 23:59 23:59 Intake Total 1510 350 300 Output Total 3911 003 9517 Balance -340 250 -9090 Meds/Results Medications: Active Medications Generic Name Dose Route Start Last Admin Trade Name Hilton PRN Reason Stop Dose Admin Acetaminophen 650 mg 05/02/22 17:21 Acetaminophen 325 Mg Tablet PO Q4H PRN Mild Pain (1-3) or Fever Hydrocodone Bitart/Acetaminophen 1 tab 05/04/22 16:30 Hydrocodone/Acetaminophen (*Crx) 5-325 Mg Tablet PO Q4H PRN Pain Rated 4-6
[2022-05-05 17:31] LABS: Glucose Point of Care 108 mg/dl (65-105)
[2022-05-05] MEDS: ATORVASTATIN 40 MG TABLET 80 MG PO (18:02)
[2022-05-05] MEDS: ISOSORBIDE MONONITRATE 60 MG TAB.ER.24H PO (18:03)
[2022-05-05] MEDS: OPTI-GEN TAB 1 TABLET PO (18:03)
[2022-05-05] MEDS: ASPIRIN 81 MG ENTERIC TABLET PO (18:03)
[2022-05-05 18:39] LABS: Hepatitis B Core Ab Total Nonreactive (Nonreactive)
[2022-05-05] MEDS: carvediloL 12.5 MG TABLET PO (21:03)
[2022-05-05] MEDS: CHOLECALCIFEROL 1,000 UNITS TABLET 5000 UNITS PO (21:03)
[2022-05-05] MEDS: HEPARIN SODIUM 5,000 UNITS/ML VIAL 5000 UNITS SUB-Q (21:04)
[2022-05-05] MEDS: FUROSEMIDE INJ 40 MG/4 ML VIAL IV PUSH (21:04)
[2022-05-05 21:41] LABS: Glucose Point of Care 145 mg/dl (65-105)
[2022-05-06] VITALS (18 sets, daily range): BP systolic 88–119; BP diastolic 40–69; PULSE 53–80; RESP 16–20; TEMP 35.5–36.9; O2SAT 91–99
[2022-05-06] MEDS: LEVOTHYROXINE SODIUM 50 MCG TABLET PO (05:59)
[2022-05-06 06:32] LABS: Hematocrit 27.7 % (42.0-52.0); Hemoglobin 8.5 g/dL (14.0-18.0); Immature Platelet Fraction Pct 6.3 % (0.9-11.2); Mean Corpuscular HGB Conc 30.7 g/dl (32-36); Mean Corpuscular Hemoglobin 29.3 pg (26-34); Mean Corpuscular Volume 95.5 fl (80-100); Mean Platelet Volume 11.9 fl (7.4-10.4); Platelet Count Result 132 k/mm3 (150-375); Red Cell Distribution Width 16.8 % (11.5-14.5); White Blood Count 6.7 K/mm3 (4.5-10.0)
[2022-05-06 06:48] LABS: Albumin Level 2.9 g/dL (3.5-5.1); Anion Gap 8 mmol/L (8-16); Blood Urea Nitrogen 74 mg/dL (9-20); Calcium 7.7 mg/dL (8.4-10.2); Carbon Dioxide 23 mmol/L (22-30); Chloride 107 mmol/L (98-107); Estimated CRCL calculation 17 ml/min; Estimated Glomerular Filt Rate 16; Glucose 99 mg/dL (65-110); Phosphorus 4.2 mg/dL (2.5-4.5); Potassium 4.7 mmol/L (3.4-5.0); Sodium 138 mmol/L (137-145)
[2022-05-06 08:05] LABS: Glucose Point of Care 95 mg/dl (65-105)
--- NOTE | 2022-05-06 08:32 | PM.PNCARD ---
Progress Note: A&P Assessment and Plan (1) Volume overload: Code(s): E87.70 - Fluid overload, unspecified Status: Chronic (2) Acute on chronic combined systolic and diastolic CHF (congestive heart failure): Code(s): I50.43 - Acute on chronic combined systolic (congestive) and diastolic (congestive) heart failure Status: Acute Plan 76-year-old man with: Severe essentially end-stage ischemic heart disease with poor LV systolic function and now with end-stage renal disease. The patient's volume management will likely be handled with dialysis now. Would wonder if he needs any furosemide at this time. His hyperkalemia should no longer be problematic so I am going to resume some Entresto today. He felt much better symptomaticly when he was on this drug it was stopped because of both hypotension and hyperkalemia in the past. Yehuda Richmond MD [facility] Subjective Date/time seen: Date of service: 05/06/22 08:32 Interval history: Follow-up visit in this 76-year-old man with: Longstanding ischemic heart disease as detailed in previous notes significant LV systolic dysfunction and chronically implanted ICD. Patient admitted to the hospital with yet again problematic volume overload. Renal disease has progressed to end-stage hemodialysis access placed 48 hours ago. Patient dialyzed yesterday and understand plans are for further dialysis today. Patient states that he reports feeling well today other than some soreness at the catheter insertion site in the right subclavian area Exam Const: General: comfortable and no acute distress Other: Pleasant gentleman in good spirits no distress HENMT: Mouth: Yes moist mucous membranes Eyes: Sclera: sclerae normal Neck: Neck: supple and no JVD Resp: Effort & Inspection: normal respiratory effort Auscultation: clear to auscultation bilaterally Cardio: Rate: regular rate Rhythm: regular rhythm GI: GI Palp: Yes Soft to palpation Auscultation: normal bowel sounds Skin: General skin exam: normal color Neuro: Other: Normal cognition Extrem: Other: Small amount of peripheral edema Objective Data Vital Signs Vital Signs: Vital Signs - 24 hr 05/05/22 13:45 05/05/22 14:20 05/05/22 15:00 Temperature Pulse Rate 72 73 70 Respiratory Rate Blood Pressure 133/54 L 125/58 L 133/60 Pulse Oximetry Oxygen Delivery 05/05/22 15:20 05/05/22 13:30 05/05/22 15:46 Temperature 36.7 C Pulse Rate 70 73 69 Respiratory Rate 16 Blood Pressure 117/56 L 121/56 L 126/69 Pulse Oximetry Oxygen Delivery 05/05/22 16:14 05/05/22 14:00 05/05/22 14:40 Temperature 36.4 C Pulse Rate 71 74 72 Respiratory Rate 18 Blood Pressure 123/56 L 118/57 L 127/59 L Pulse Oximetry Oxygen Delivery 05/05/22 15:40 05/05/22 12:00 05/05/22 16:00 Temperature Pulse Rate 71 76 73 Respiratory Rate Blood Pressure 127/56 L Pulse Oximetry Oxygen Delivery 05/05/22 21:03 05/05/22 21:52 05/05/22 20:00 Temperature 36.7 C Pulse Rate 82 69 Respiratory Rate 20 Blood Pressure 106/45 L Pulse Oximetry 93 Oxygen Delivery Room Air 05/05/22 20:00 05/06/22 00:00 05/06/22 04:00 Temperature Pulse Rate 68 63 59 L Respiratory Rate Blood Pressure Pulse Oximetry Oxygen Delivery 05/06/22 05:45 Temperature 36.6 C Pulse Rate 62 Respiratory Rate 20 Blood Pressure 115/45 L Pulse Oximetry 91 Oxygen Delivery Intake/Output Intake/Output: Intake & Output 05/03/22 05/04/22 05/05/22 05/06/22 23:59 23:59 23:59 23:59 Intake Total 1510 350 780 100 Output Total 2891 890 1187 150 Balance -340 -250 -6120 -50 Meds/Results Medications: Active Medications Generic Name Dose Route Start Last Admin Trade Name Hilton PRN Reason Stop Dose Admin Acetaminophen 650 mg 05/02/22 17:21 Acetaminophen 325 Mg Tablet PO Q4H PRN Mild Pain (1-3) or Fever Hydrocodone Bitart/Acetaminophen 1 tab
[2022-05-06] MEDS: INSULIN GLARGINE (*BKC) 100 UNITS/ML SUB-Q (08:48)
[2022-05-06] MEDS: carvediloL 12.5 MG TABLET PO ×2 (08:50→21:18)
[2022-05-06] MEDS: OPTI-GEN TAB 1 TABLET PO ×2 (08:50→18:22)
[2022-05-06] MEDS: HEPARIN SODIUM 5,000 UNITS/ML VIAL 5000 UNITS SUB-Q ×2 (08:51→21:19)
[2022-05-06] MEDS: FUROSEMIDE INJ 40 MG/4 ML VIAL IV PUSH ×2 (08:51→21:19)
[2022-05-06] MEDS: ASPIRIN 81 MG ENTERIC TABLET PO (09:42)
[2022-05-06] MEDS: ATORVASTATIN 40 MG TABLET 80 MG PO (09:42)
[2022-05-06] MEDS: SACUBITRIL/VALSARTAN 24-26 MG TABLET 1 TAB PO ×2 (09:42→21:18)
[2022-05-06] MEDS: ISOSORBIDE MONONITRATE 60 MG TAB.ER.24H PO (09:42)
[2022-05-06 12:08] LABS: Glucose Point of Care 114 mg/dl (65-105)
--- NOTE | 2022-05-06 13:28 | PM.IMPN ---
Progress Note: A&P Assessment and Plan (1) Acute on chronic combined systolic and diastolic CHF (congestive heart failure): Code(s): I50.43 - Acute on chronic combined systolic (congestive) and diastolic (congestive) heart failure Status: Acute Assessment and Plan: Paracentesis post thoracentesis performed yesterday as well as hemodialysis, appreciate cardiology and nephrology consultations (2) Pleural effusion: Code(s): J90 - Pleural effusion, not elsewhere classified Status: Acute Assessment and Plan: Thoracentesis done by IR yesterday (3) CKD stage 4 due to type 2 diabetes mellitus: Code(s): E11.22 - Type 2 diabetes mellitus with diabetic chronic kidney disease; N18.4 - Chronic kidney disease, stage 4 (severe) Status: Acute Assessment and Plan: Appreciate nephrology consultation, hemodialysis yesterday and again today (4) Ascites: Qualifiers: Ascites type: other type Qualified Code(s): R18.8 - Other ascites Code(s): R18.8 - Other ascites Status: Acute Assessment and Plan: Paracentesis performed today Subjective Date/time seen: 05/06/22 13:28 Interval history: Patient resting comfortably in bed, states he feels much better than yesterday. No overnight events noted. No chest pain or shortness of breath. No nausea, vomiting or diarrhea. No fevers or chills. Review of Systems Review of Systems: 12 point review of systems was assessed and was negative except as noted in the HPI Exam Narrative: General: Patient resting comfortably in bed, no acute distress HEENT: Atraumatic, normocephalic, mucous membranes moist CV: Regular rate and rhythm, S1, S2, no murmur Lungs: Clear to auscultation bilaterally, no rales or crackles noted, no wheezes, good air entry Abdomen: Soft, nontender, nondistended Extremities: Normal to inspection, trace pitting edema Skin: No rashes noted, no lesions or wounds seen Psych: Euthymic, normal affect Objective Data Vital Signs Vital Signs: Vital Signs - 24 hr 05/05/22 13:45 05/05/22 14:20 05/05/22 15:00 Temperature Pulse Rate 72 73 70 Respiratory Rate Blood Pressure 133/54 L 125/58 L 133/60 Pulse Oximetry Oxygen Delivery 05/05/22 15:20 05/05/22 13:30 05/05/22 15:46 Temperature 98.0 F Pulse Rate 70 73 69 Respiratory Rate 16 Blood Pressure 117/56 L 121/56 L 126/69 Pulse Oximetry Oxygen Delivery 05/05/22 16:14 05/05/22 14:00 05/05/22 14:40 Temperature 97.6 F Pulse Rate 71 74 72 Respiratory Rate 18 Blood Pressure 123/56 L 118/57 L 127/59 L Pulse Oximetry Oxygen Delivery 05/05/22 15:40 05/05/22 16:00 05/05/22 21:03 Temperature Pulse Rate 71 73 82 Respiratory Rate Blood Pressure 127/56 L Pulse Oximetry Oxygen Delivery 05/05/22 21:52 05/05/22 20:00 05/05/22 20:00 Temperature 98.0 F Pulse Rate 69 68 Respiratory Rate 20 Blood Pressure 106/45 L Pulse Oximetry 93 Oxygen Delivery Room Air 05/06/22 00:00 05/06/22 04:00 05/06/22 05:45 Temperature 97.9 F Pulse Rate 63 59 L 62 Respiratory Rate 20 Blood Pressure 115/45 L Pulse Oximetry 91 Oxygen Delivery 05/06/22 08:00 05/06/22 12:00 Temperature Pulse Rate 66 53 L Respiratory Rate Blood Pressure Pulse Oximetry Oxygen Delivery Intake/Output Intake/Output: Intake & Output 05/03/22 05/04/22 05/05/22 05/06/22 23:59 23:59 23:59 23:59 Intake Total 1510 350 780 340 Output Total 9030 224 2491 150 Balance -340 -250 -6120 190 Meds/Results Medications: Active Medications Generic Name Dose Route Start Last Admin Trade Name Freq PRN Reason Stop Dose Admin Acetaminophen 650 mg 05/02/22 17:21 Acetaminophen 325 Mg Tablet PO Q4H PRN Mild Pain (1-3) or Fever Hydrocodone Bitart/Acetaminophen 1 tab 05/04/22 16:30 Hydrocodone/Acetaminophen (*Crx) 5-325 Mg Tablet PO Q4H PRN Pain Rate
--- NOTE | 2022-05-06 14:19 | P.PNNP_ITS ---
Progress Note: A&P Assessment and Plan (1) End stage renal disease: Code(s): N18.6 - End stage renal disease Status: Chronic Assessment and Plan: * due progression of disease from HTN, DM, cardiorenal syndrome and TITA * due ongoing issues with #2 and #3 worsening renal dysfunction, initiated on renal replacement therapy/dialysis * s/p PermCath placement * HD today * would like to pursue outpatient peritoneal dialysis eventually * will need outpatient hemodialysis on discharge (2) Acute on chronic combined systolic and diastolic CHF (congestive heart failure): Code(s): I50.43 - Acute on chronic combined systolic (congestive) and diastolic (congestive) heart failure Status: Acute Assessment and Plan: * as noted by admission labs/imaging findings * diuretic therapy alone not able to achieve euvolemia * fluid removal with dialysis should help (3) Volume overload: Code(s): E87.70 - Fluid overload, unspecified Status: Chronic Assessment and Plan: * s/p thoracentesis and paracentesis (05/05/22) * fluid removal with HD today * follow volume status (4) Chronic anemia: Code(s): D64.9 - Anemia, unspecified Status: Chronic Assessment and Plan: * due to ESRD * Epogen with HD * follow trend of H/H (5) Essential hypertension: Code(s): I10 - Essential (primary) hypertension Status: Chronic Assessment and Plan: * tends to be on the lower end of normal at baseline (90 - 100 systolic) * follow trend of hemodynamics (6) Diabetes: Code(s): E11.9 - Type 2 diabetes mellitus without complications Status: Chronic Assessment and Plan: * follow accuchecks * on SSI and Lantus Will continue to follow. Subjective Date/time seen: 05/06/22 14:19 Patient appears to be tolerating dialysis treatment at the time of my visit (seen on HD at ~ 2:15pm); no apparent distress voiced when seen; no issues/events overnight or earlier today. Exam Narrative: General: WD/WN male in NAD Heart: normal S1 and S2; no rub Lungs: decreased at bases Abdomen: soft, nontender, mild distension, positive bowel sounds Extremities: no cyanosis or clubbing; trace edema Skin: warm and intact Objective Data Vital Signs Vital Signs: Vital Signs Temp Pulse Resp BP Pulse Ox O2 Del Method 05/06/22 12:00 53 L 05/06/22 08:00 66 05/06/22 05:45 36.6 C 62 20 115/45 L 91 05/06/22 04:00 59 L 05/06/22 00:00 63 05/05/22 20:00 68 05/05/22 20:00 Room Air 05/05/22 21:52 36.7 C 69 20 106/45 L 93 05/05/22 21:03 82 05/05/22 16:00 73 05/05/22 15:40 71 127/56 L 05/05/22 16:14 36.4 C 71 18 123/56 L 05/05/22 15:46 69 126/69 05/05/22 15:20 70 117/56 L 05/05/22 15:00 70 133/60 Intake/Output Intake/Output: Intake & Output 05/03/22 05/04/22 05/05/22 05/06/22 23:59 23:59 23:59 23:59 Intake Total 1510 350 780 580 Output Total 1107.970.5581 150 Balance -527 -188 -6120 430 Meds/Results Medications: Active Medications Generic Name Dos
--- NOTE | 2022-05-06 14:19 | PM.PNNEP ---
Progress Note: A&P Assessment and Plan (1) End stage renal disease: Code(s): N18.6 - End stage renal disease Status: Chronic Assessment and Plan: due progression of disease from HTN, DM, cardiorenal syndrome and TITA due ongoing issues with #2 and #3 worsening renal dysfunction, initiated on renal replacement therapy/dialysis s/p PermCath placement HD today would like to pursue outpatient peritoneal dialysis eventually will need outpatient hemodialysis on discharge (2) Acute on chronic combined systolic and diastolic CHF (congestive heart failure): Code(s): I50.43 - Acute on chronic combined systolic (congestive) and diastolic (congestive) heart failure Status: Acute Assessment and Plan: as noted by admission labs/imaging findings diuretic therapy alone not able to achieve euvolemia fluid removal with dialysis should help (3) Volume overload: Code(s): E87.70 - Fluid overload, unspecified Status: Chronic Assessment and Plan: s/p thoracentesis and paracentesis (05/05/22) fluid removal with HD today follow volume status (4) Chronic anemia: Code(s): D64.9 - Anemia, unspecified Status: Chronic Assessment and Plan: due to ESRD Epogen with HD follow trend of H/H (5) Essential hypertension: Code(s): I10 - Essential (primary) hypertension Status: Chronic Assessment and Plan: tends to be on the lower end of normal at baseline (90 - 100 systolic) follow trend of hemodynamics (6) Diabetes: Code(s): E11.9 - Type 2 diabetes mellitus without complications Status: Chronic Assessment and Plan: follow accuchecks on SSI and Lantus Will continue to follow. Subjective Date/time seen: 05/06/22 14:19 Patient appears to be tolerating dialysis treatment at the time of my visit (seen on HD at ~ 2:15pm); no apparent distress voiced when seen; no issues/events overnight or earlier today. Exam Narrative: General: WD/WN male in NAD Heart: normal S1 and S2; no rub Lungs: decreased at bases Abdomen: soft, nontender, mild distension, positive bowel sounds Extremities: no cyanosis or clubbing; trace edema Skin: warm and intact Objective Data Vital Signs Vital Signs: Vital Signs Temp Pulse Resp BP Pulse Ox O2 Del Method 05/06/22 12:00 53 L 05/06/22 08:00 66 05/06/22 05:45 36.6 C 62 20 115/45 L 91 05/06/22 04:00 59 L 05/06/22 00:00 63 05/05/22 20:00 68 05/05/22 20:00 Room Air 05/05/22 21:52 36.7 C 69 20 106/45 L 93 05/05/22 21:03 82 05/05/22 16:00 73 05/05/22 15:40 71 127/56 L 05/05/22 16:14 36.4 C 71 18 123/56 L 05/05/22 15:46 69 126/69 05/05/22 15:20 70 117/56 L 05/05/22 15:00 70 133/60 Intake/Output Intake/Output: Intake & Output 05/03/22 05/04/22 05/05/22 05/06/22 23:59 23:59 23:59 23:59 Intake Total 1510 350 780 580 Output Total 6213 431 6164 150 Balance 340 -997 -1167 430 Meds/Results Medications: Active Medications Generic Name Dose Route Start Last Admin Trade Name Arunq PRN Reason Stop Dose Admin Acetaminophen 650 mg 05/02/22 17:21 Acetaminophen 325 Mg Tablet PO Q4H PRN Mild Pain (1-3) or Fever Hydrocodone Bitart/Acetaminophen 1 tab 05/04/22 16:30 Hydrocodone/Acetaminophen (*Crx) 5-325 Mg Tablet PO Q4H PRN Pain Rated 4-6 Aspirin 81 mg 05/03/22 09:00 05/06/22 09:42 Aspirin 81 Mg Enteric Tablet PO 81 mg DAILY JEFF Administration Atorvastatin Calcium 80 mg 05/03/22 09:00 05/06/22 09:42 Atorvastatin 40 Mg Tablet PO 80 mg DAILY JEFF Administration Carvedilol 12.5 mg 05/03/22 09:00 05/06/22 08:50 Carvedilol 12.5 Mg Tablet PO 12.5 mg Q12HR JEFF Administration Clopidogrel Bisulfate 75 mg 05/03/22 09:00 05/03/22 08:28 Clopidogrel Bisulfate 75 Mg Tablet PO Not Given DA
[2022-05-06] MEDS: EPOETIN ALFA-EPBX 10,000 UNITS/ML VIAL 10000 UNITS IV PUSH (15:53)
[2022-05-06 17:43] LABS: Glucose Point of Care 101 mg/dl (65-105)
[2022-05-06 19:41] LABS: Glucose Point of Care 113 mg/dl (65-105)
[2022-05-06] MEDS: CHOLECALCIFEROL 1,000 UNITS TABLET 5000 UNITS PO (21:18)
[2022-05-06 21:28] LABS: Glucose Point of Care 125 mg/dl (65-105)
[2022-05-07] VITALS (11 sets, daily range): BP systolic 100–109; BP diastolic 40–48; PULSE 56–109; RESP 16–18; TEMP 36.1–36.8; O2SAT 92–100
[2022-05-07] MEDS: ACETAMINOPHEN 325 MG TABLET 650 MG PO (01:14)
[2022-05-07] MEDS: LEVOTHYROXINE SODIUM 50 MCG TABLET PO (05:49)
[2022-05-07 08:02] LABS: Glucose Point of Care 93 mg/dl (65-105)
[2022-05-07] MEDS: OPTI-GEN TAB 1 TABLET PO ×2 (09:09→18:01)
[2022-05-07] MEDS: SACUBITRIL/VALSARTAN 24-26 MG TABLET 1 TAB PO ×2 (09:09→20:09)
[2022-05-07] MEDS: ISOSORBIDE MONONITRATE 60 MG TAB.ER.24H PO (09:09)
[2022-05-07] MEDS: carvediloL 12.5 MG TABLET PO (09:10)
[2022-05-07] MEDS: ATORVASTATIN 40 MG TABLET 80 MG PO (09:10)
[2022-05-07] MEDS: ASPIRIN 81 MG ENTERIC TABLET PO (09:10)
[2022-05-07] MEDS: INSULIN GLARGINE (*BKC) 100 UNITS/ML SUB-Q (09:13)
[2022-05-07] MEDS: HEPARIN SODIUM 5,000 UNITS/ML VIAL 5000 UNITS SUB-Q ×2 (09:15→20:09)
[2022-05-07] MEDS: FUROSEMIDE INJ 40 MG/4 ML VIAL IV PUSH ×2 (09:15→20:09)
--- NOTE | 2022-05-07 11:31 | PM.PNCARD ---
Progress Note: A&P Assessment and Plan (1) End stage renal disease: Code(s): N18.6 - End stage renal disease Status: Chronic (2) Acute exacerbation of CHF (congestive heart failure): Qualifiers: Heart failure type: diastolic Qualified Code(s): I50.33 - Acute on chronic diastolic (congestive) heart failure Code(s): I50.9 - Heart failure, unspecified Status: Acute (3) Cardiorenal syndrome: Code(s): I13.10 - Hypertensive heart and chronic kidney disease without heart failure, with stage 1 through stage 4 chronic kidney disease, or unspecified chronic kidney disease Status: Acute Plan 76-year-old man with severe ischemic cardiomyopathy as detailed in many previous notes. He is doing much better at least initially with the institution of renal replacement therapy. Unfortunately this was necessary to manage his volume status. Hopefully he will tolerate Entresto more effectively now than his electrolytes should not be an issue. We will continue to see him while he is in the hospital and of course following discharge. Yehuda Richmond MD [facility] Subjective Date/time seen: Date of service: 05/07/22 11:31 Interval history: Follow-up visit in this 76-year-old man with: Severe ischemic cardiomyopathy with cardiorenal syndrome and institution of hemodialysis during this hospitalization. Patient has had frequent admissions to the hospital with volume overload despite maximal medical therapy. He is tolerating the 1st couple of dialysis treatments remarkably well. He feels well today and offers no complaints. I did resume his Entresto yesterday. It was difficult to use that medication recently because of problematic hyperkalemia. That should not be an issue anymore now that he is being dialyzed. Exam Const: General: comfortable and no acute distress Other: Pleasant gentleman remarkably good spirits given his medical condition HENMT: Mouth: Yes moist mucous membranes Eyes: Sclera: sclerae normal Neck: Neck: supple and no JVD Resp: Effort & Inspection: normal respiratory effort Other: Few scant crackles persist at the left base Cardio: Rate: regular rate Rhythm: regular rhythm GI: GI Palp: Yes Soft to palpation Auscultation: normal bowel sounds Skin: General skin exam: normal color Neuro: Other: Normal cognition Extrem: Other: Trivial peripheral edema Objective Data Vital Signs Vital Signs: Vital Signs - 24 hr 05/06/22 12:00 05/06/22 15:50 05/06/22 14:25 Temperature 36.0 C L 36.6 C Pulse Rate 53 L 63 55 L Respiratory Rate 18 16 Blood Pressure 98/40 L 88/44 L Pulse Oximetry 96 Oxygen Delivery 05/06/22 14:30 05/06/22 15:00 05/06/22 15:30 Temperature Pulse Rate 57 L 61 64 Respiratory Rate Blood Pressure 99/41 L 97/43 L 98/40 L Pulse Oximetry Oxygen Delivery 05/06/22 16:00 05/06/22 16:30 05/06/22 16:00 Temperature Pulse Rate 65 63 66 Respiratory Rate Blood Pressure 98/46 L 100/46 L Pulse Oximetry Oxygen Delivery 05/06/22 16:45 05/06/22 17:15 05/06/22 17:20 Temperature 36.5 C Pulse Rate 70 63 65 Respiratory Rate 16 Blood Pressure 109/47 L 119/51 L 105/52 L Pulse Oximetry Oxygen Delivery 05/06/22 21:18 05/06/22 20:00 05/06/22 22:00 Temperature 36.9 C Pulse Rate 72 80 Respiratory Rate Blood Pressure 110/69 Pulse Oximetry 99 Oxygen Delivery Room Air 05/06/22 20:00 05/07/22 00:00 05/07/22 04:00 Temperature Pulse Rate 61 66 58 L Respiratory Rate Blood Pressure Pulse Oximetry Oxygen Delivery 05/07/22 06:00 05/07/22 09:10 05/07/22 08:00 Temperature 36.8 C Pulse Rate 57 L 71 73 Respiratory Rate 18 Blood Pressure 107/48 L Pulse Oximetry 96 Oxygen Delivery Intake/Output Intake/Output: Intake & Output 05/04/22 05/05/22 05/06/22 05/07/22 23:59 23:59 23:59 23:59 Intake Total 350 780 820 480 Output Total 600 5870 2150
[2022-05-07 11:44] LABS: Glucose Point of Care 142 mg/dl (65-105)
--- NOTE | 2022-05-07 13:12 | P.PNNP_ITS ---
Progress Note: A&P Assessment and Plan (1) End stage renal disease: Code(s): N18.6 - End stage renal disease Status: Chronic Assessment and Plan: * due progression of disease from HTN, DM, cardiorenal syndrome and TITA * due ongoing issues with #2 and #3 and worsening renal dysfunction, initiated on renal replacement therapy/dialysis * s/p PermCath placement * HD yesterday and plan treatment tomorrow * would like to pursue outpatient peritoneal dialysis eventually * will need outpatient hemodialysis on discharge (2) Acute on chronic combined systolic and diastolic CHF (congestive heart failure): Code(s): I50.43 - Acute on chronic combined systolic (congestive) and diastolic (congestive) heart failure Status: Acute Assessment and Plan: * as noted by admission labs/imaging findings * diuretic therapy alone not able to achieve euvolemia * fluid removal with dialysis should help * Cardiology following (3) Volume overload: Code(s): E87.70 - Fluid overload, unspecified Status: Chronic Assessment and Plan: * s/p thoracentesis and paracentesis (05/05/22) * fluid removal with dialysis * follow volume status (4) Chronic anemia: Code(s): D64.9 - Anemia, unspecified Status: Chronic Assessment and Plan: * due to ESRD * Epogen with HD * follow trend of H/H (5) Essential hypertension: Code(s): I10 - Essential (primary) hypertension Status: Chronic Assessment and Plan: * tends to be on the lower end of normal at baseline (90 - 100 systolic) * follow trend of hemodynamics (6) Diabetes: Code(s): E11.9 - Type 2 diabetes mellitus without complications Status: Chronic Assessment and Plan: * follow accuchecks * on SSI and Lantus Will continue to follow. Subjective Date/time seen: 05/07/22 13:12 Tolerated dialysis yesterday without any issues or problems; feels a bit tired/fatigue but significantly better since admission; no new complaints voiced at the time of my visit; no events overnight or earlier this morning; no apparent distress to report. Exam Narrative: General: WD/WN male in NAD Heart: normal S1 and S2; no rub Lungs: decreased at bases Abdomen: soft, nontender, mild distension, positive bowel sounds Extremities: no cyanosis or clubbing; trace edema Skin: no rash Objective Data Vital Signs Vital Signs: Vital Signs Temp Pulse Resp BP Pulse Ox O2 Del Method 05/07/22 12:00 56 L 05/07/22 11:32 Room Air 05/07/22 09:10 Room Air 05/07/22 08:00 73 05/07/22 09:10 71 05/07/22 06:00 36.8 C 57 L 18 107/48 L 96 05/07/22 04:00 58 L 05/07/22 00:00 66 05/06/22 20:00 61 05/06/22 22:00 36.9 C 80 110/69 99 05/06/22 20:00 Room Air 05/06/22 21:18 72 05/06/22 17:20 36.5 C 65 16 105/52 L 05/06/22 17:15 63 119/51 L Intake/Output Intake/Output: Intake & Output 05/04/22 05/05/22 05/06/22 05/07/22 23:59 23:59 23:59 23:59 Intake Total 350 780 820 680 Output Total 600 3660 2154 150 Balance 250 -9698 -1330 530 Meds/Results Medications:
--- NOTE | 2022-05-07 13:12 | PM.PNNEP ---
Progress Note: A&P Assessment and Plan (1) End stage renal disease: Code(s): N18.6 - End stage renal disease Status: Chronic Assessment and Plan: due progression of disease from HTN, DM, cardiorenal syndrome and TITA due ongoing issues with #2 and #3 and worsening renal dysfunction, initiated on renal replacement therapy/dialysis s/p PermCath placement HD yesterday and plan treatment tomorrow would like to pursue outpatient peritoneal dialysis eventually will need outpatient hemodialysis on discharge (2) Acute on chronic combined systolic and diastolic CHF (congestive heart failure): Code(s): I50.43 - Acute on chronic combined systolic (congestive) and diastolic (congestive) heart failure Status: Acute Assessment and Plan: as noted by admission labs/imaging findings diuretic therapy alone not able to achieve euvolemia fluid removal with dialysis should help Cardiology following (3) Volume overload: Code(s): E87.70 - Fluid overload, unspecified Status: Chronic Assessment and Plan: s/p thoracentesis and paracentesis (05/05/22) fluid removal with dialysis follow volume status (4) Chronic anemia: Code(s): D64.9 - Anemia, unspecified Status: Chronic Assessment and Plan: due to ESRD Epogen with HD follow trend of H/H (5) Essential hypertension: Code(s): I10 - Essential (primary) hypertension Status: Chronic Assessment and Plan: tends to be on the lower end of normal at baseline (90 - 100 systolic) follow trend of hemodynamics (6) Diabetes: Code(s): E11.9 - Type 2 diabetes mellitus without complications Status: Chronic Assessment and Plan: follow accuchecks on SSI and Lantus Will continue to follow. Subjective Date/time seen: 05/07/22 13:12 Tolerated dialysis yesterday without any issues or problems; feels a bit tired/fatigue but significantly better since admission; no new complaints voiced at the time of my visit; no events overnight or earlier this morning; no apparent distress to report. Exam Narrative: General: WD/WN male in NAD Heart: normal S1 and S2; no rub Lungs: decreased at bases Abdomen: soft, nontender, mild distension, positive bowel sounds Extremities: no cyanosis or clubbing; trace edema Skin: no rash Objective Data Vital Signs Vital Signs: Vital Signs Temp Pulse Resp BP Pulse Ox O2 Del Method 05/07/22 12:00 56 L 06/26/22 11:32 Room Air 05/07/22 09:10 Room Air 05/07/22 08:00 73 05/07/22 09:10 71 05/07/22 06:00 36.8 C 57 L 18 107/48 L 96 05/07/22 04:00 58 L 05/07/22 00:00 66 05/06/22 20:00 61 05/06/22 22:00 36.9 C 80 110/69 99 05/06/22 20:00 Room Air 05/06/22 21:18 72 05/06/22 17:20 36.5 C 65 16 105/52 L 05/06/22 17:15 63 119/51 L Intake/Output Intake/Output: Intake & Output 05/04/22 05/05/22 05/06/22 05/07/22 23:59 23:59 23:59 23:59 Intake Total 350 780 820 680 Output Total 600 6900 2150 150 Balance -389 -3755 -9616 530 Meds/Results Medications: Active Medications Generic Name Dose Route Start Last Admin Trade Name Hilton PRN Reason Stop Dose Admin Acetaminophen 650 mg 05/02/22 17:21 05/07/22 01:14 Acetaminophen 325 Mg Tablet PO 650 mg Q4H PRN Administration Mild Pain (1-3) or Fever Hydrocodone Bitart/Acetaminophen 1 tab 05/04/22 16:30 Hydrocodone/Acetaminophen (*Crx) 5-325 Mg Tablet PO Q4H PRN Pain Rated 4-6 Aspirin 81 mg 05/03/22 09:00 05/07/22 09:10 Aspirin 81 Mg Enteric Tablet PO 81 mg DAILY JEFF Administration Atorvastatin Calcium 80 mg 05/03/22 09:00 05/07/22 09:10 Atorvastatin 40 Mg Tablet PO 80 mg DAILY JEFF Administration Carvedilol 12.5 mg 05/03/22 09:00 05/07/22 09:10 Carvedilol 12.5 Mg Tablet PO 12.5 mg Q12HR JEFF Administration Cl
--- NOTE | 2022-05-07 14:52 | PM.IMPN ---
Progress Note: A&P Assessment and Plan (1) Acute on chronic combined systolic and diastolic CHF (congestive heart failure): Code(s): I50.43 - Acute on chronic combined systolic (congestive) and diastolic (congestive) heart failure Status: Acute Assessment and Plan: History of coronary disease status post CABG x2 with ischemic cardiomyopathy and EF of 30-35%, severe pulmonary hypertension and grade 2 diastolic dysfunction (2) Pleural effusion: Code(s): J90 - Pleural effusion, not elsewhere classified Status: Acute Assessment and Plan: Status post thoracentesis on May 05, 2022 yielding 650 mL of clear henri colored fluid (3) CKD stage 4 due to type 2 diabetes mellitus: Code(s): E11.22 - Type 2 diabetes mellitus with diabetic chronic kidney disease; N18.4 - Chronic kidney disease, stage 4 (severe) Status: Acute Assessment and Plan: Accu-Cheks with sliding scale insulin, well controlled (4) Ascites: Qualifiers: Ascites type: other type Qualified Code(s): R18.8 - Other ascites Code(s): R18.8 - Other ascites Status: Acute Assessment and Plan: Status post paracentesis on May 05, 2022 yielding 5 L of clear yellow fluid Plan Cardiorenal syndrome, status post paracentesis for ascites, thoracentesis for pleural effusion, and new-start hemodialysis, plan is to convert to peritoneal dialysis on outpatient basis Subjective Date/time seen: 05/07/22 14:52 Interval history: Patient sitting up to chair, no complaints. No overnight events noted. No chest pain or shortness of breath. No nausea, vomiting or diarrhea. No fevers or chills. Per cardio: Severe ischemic cardiomyopathy with cardiorenal syndrome and institution of hemodialysis during this hospitalization. Patient has had frequent admissions to the hospital with volume overload despite maximal medical therapy. He is tolerating the 1st couple of dialysis treatments remarkably well. He feels well today and offers no complaints. I did resume his Entresto yesterday. Review of Systems Review of Systems: 12 point review of systems was assessed and was negative except as noted in the HPI Exam Narrative: General: Patient resting comfortably in bed, no acute distress HEENT: Atraumatic, normocephalic, mucous membranes moist CV: Regular rate and rhythm, S1, S2, no murmur Lungs: Clear to auscultation bilaterally, no rales or crackles noted, no wheezes, good air entry Abdomen: Soft, nontender, nondistended Extremities: Normal to inspection, trace pitting edema Skin: No rashes noted, no lesions or wounds seen Psych: Euthymic, normal affect Objective Data Vital Signs Vital Signs: Vital Signs - 24 hr 05/06/22 15:50 05/06/22 15:00 05/06/22 15:30 Temperature 96.8 F L Pulse Rate 63 61 64 Respiratory Rate 18 Blood Pressure 98/40 L 97/43 L 98/40 L Pulse Oximetry 96 Oxygen Delivery 05/06/22 16:00 05/06/22 16:30 05/06/22 16:00 Temperature Pulse Rate 65 63 66 Respiratory Rate Blood Pressure 98/46 L 100/46 L Pulse Oximetry Oxygen Delivery 05/06/22 16:45 05/06/22 17:15 05/06/22 17:20 Temperature 97.7 F Pulse Rate 70 63 65 Respiratory Rate 16 Blood Pressure 109/47 L 119/51 L 105/52 L Pulse Oximetry Oxygen Delivery 05/06/22 21:18 05/06/22 20:00 05/06/22 22:00 Temperature 98.4 F Pulse Rate 72 80 Respiratory Rate Blood Pressure 110/69 Pulse Oximetry 99 Oxygen Delivery Room Air 05/06/22 20:00 05/07/22 00:00 05/07/22 04:00 Temperature Pulse Rate 61 66 58 L Respiratory Rate Blood Pressure Pulse Oximetry Oxygen Delivery 05/07/22 06:00 05/07/22 09:10 05/07/22 08:00 Temperature 98.3 F Pulse Rate 57 L 71 73 Respiratory Rate 18 Blood Pressure 107/48 L Pulse Oximetry 96 Oxygen Delivery 05/07/22 09:10 05/07/22 11:32 05/07/22 12:00 Temperature Pulse Rate 56 L Respiratory Rate
[2022-05-07 16:48] LABS: Glucose Point of Care 108 mg/dl (65-105)
[2022-05-07] MEDS: CHOLECALCIFEROL 1,000 UNITS TABLET 5000 UNITS PO (20:09)
[2022-05-07 20:40] LABS: Glucose Point of Care 133 mg/dl (65-105)
[2022-05-08] VITALS (19 sets, daily range): BP systolic 81–132; BP diastolic 28–84; PULSE 62–99; RESP 16–18; TEMP 35–36.6; O2SAT 95–96
[2022-05-08] MEDS: LEVOTHYROXINE SODIUM 50 MCG TABLET PO (06:07)
[2022-05-08 06:26] LABS: Hematocrit 27.5 % (42.0-52.0); Hemoglobin 8.3 g/dL (14.0-18.0); Mean Corpuscular HGB Conc 30.2 g/dl (32-36); Mean Corpuscular Hemoglobin 29.3 pg (26-34); Mean Corpuscular Volume 97.2 fl (80-100); Mean Platelet Volume 11.5 fl (7.4-10.4); Platelet Count Result 155 k/mm3 (150-375); Red Blood Count 2.83 M/mm3 (4.6-6.20); Red Cell Distribution Width 16.6 % (11.5-14.5); White Blood Count 7.6 K/mm3 (4.5-10.0)
[2022-05-08 06:48] LABS: Albumin Level 2.8 g/dL (3.5-5.1); Anion Gap 7 mmol/L (8-16); Blood Urea Nitrogen 63 mg/dL (9-20); Calcium 7.9 mg/dL (8.4-10.2); Carbon Dioxide 25 mmol/L (22-30); Chloride 103 mmol/L (98-107); Estimated CRCL calculation 17 ml/min; Estimated Glomerular Filt Rate 16; Glucose 95 mg/dL (65-110); Phosphorus 3.8 mg/dL (2.5-4.5); Potassium 4.2 mmol/L (3.4-5.0); Sodium 135 mmol/L (137-145)
[2022-05-08 08:40] LABS: Glucose Point of Care 91 mg/dl (65-105)
[2022-05-08] MEDS: ASPIRIN 81 MG ENTERIC TABLET PO (09:32)
[2022-05-08] MEDS: OPTI-GEN TAB 1 TABLET PO (09:32)
[2022-05-08] MEDS: ATORVASTATIN 40 MG TABLET 80 MG PO (09:32)
[2022-05-08] MEDS: SACUBITRIL/VALSARTAN 24-26 MG TABLET 1 TAB PO ×2 (09:32→20:54)
[2022-05-08] MEDS: ISOSORBIDE MONONITRATE 60 MG TAB.ER.24H PO (09:33)
[2022-05-08] MEDS: INSULIN GLARGINE (*BKC) 100 UNITS/ML SUB-Q (09:33)
[2022-05-08] MEDS: carvediloL 12.5 MG TABLET PO (09:33)
[2022-05-08] MEDS: HEPARIN SODIUM 5,000 UNITS/ML VIAL 5000 UNITS SUB-Q ×2 (09:33→20:55)
[2022-05-08] MEDS: FUROSEMIDE INJ 40 MG/4 ML VIAL IV PUSH ×2 (09:33→20:54)
--- NOTE | 2022-05-08 09:40 | PM.PNCARD ---
Progress Note: A&P Assessment and Plan (1) Acute on chronic combined systolic and diastolic CHF (congestive heart failure): Code(s): I50.43 - Acute on chronic combined systolic (congestive) and diastolic (congestive) heart failure Status: Acute Assessment and Plan: Severe ischemic cardiomyopathy. Patient presents once again in acute decompensated heart failure. Inability to optimize medical therapy in the past because of hypotension and hyperkalemia. Patient s/p dialysis catheter placement during this hospitalization and has rec'd several treatments at this point. He has been restarted on Entresto and is tolerating this well. Remains on IV diuretic for now. Subjective Date/time seen: 05/08/22 09:40 Cardiology follow up for ICM, CHF, CAD Continues to improve. Still has some abdominal fullness and LE edema. Plan for HD again this afternoon Review of Systems Constitutional: Constitutional: Reports lethargy Eyes: Eyes: Reports no additional eye complaints ENT: Reports system reviewed and no additional complaints, except as documented Cardiovascular: Cardiovascular: Reports as per HPI and Reports dyspnea Respiratory: Respiratory: Reports dyspnea Gastrointestinal: Gastrointestinal: Reports no additional gastrointestinal complaints Musculoskeletal: Musculoskeletal: Reports arthralgias Integumentary/Breasts: Skin/Breast: Reports system reviewed and no additional complaints, except as docu Neurologic: Reports system reviewed and no additional complaints, except as documented Endocrine: Endocrine: Reports no additional endocrine complaints Hematologic/Lymphatic: Hematologic/Lymphatic: Reports no additional hematologic/lymphatic complaints Allergic/Immunologic: Allergic/Immunologic: Reports no additional allergic/immunologic complaints Exam Const: General: comfortable and in distress Other: Chronically ill-appearing gentleman sitting on the edge of the bed HENMT: Mouth: Yes dry mucous membranes Eyes: Sclera: sclerae normal Pupils: Equal, round and reactive pupils present Neck: Neck: supple Carotids: no bruits Other: No carotid bruits, patient does have about 2-3 cm of JVD Resp: Effort & Inspection: normal respiratory effort Auscultation: clear to auscultation bilaterally Other: Dullness L base Cardio: Rate: regular rate Rhythm: regular rhythm Heart sounds: no murmurs Other: PMI is laterally displaced no audible murmur GI: Auscultation: normal bowel sounds Skin: General skin exam: normal color Neuro: Cranial nerves: Yes Equal, round and reactive pupils present Other: Normal cognition Extrem: Other: Patient has moderate bilateral lower extremity edema Objective Data Vital Signs Vital Signs: Vital Signs - 24 hr 05/07/22 11:32 05/07/22 12:00 05/07/22 14:34 Temperature 36.1 C L Pulse Rate 56 L 109 H Respiratory Rate 16 Blood Pressure 100/41 L Pulse Oximetry 100 Oxygen Delivery Room Air 05/07/22 16:00 05/07/22 21:06 05/07/22 20:00 Temperature 36.1 C L Pulse Rate 68 64 67 Respiratory Rate 18 Blood Pressure 109/40 L Pulse Oximetry 92 Oxygen Delivery 05/07/22 21:00 05/08/22 00:00 05/08/22 04:00 Temperature Pulse Rate 56 L 67 69 Respiratory Rate Blood Pressure Pulse Oximetry Oxygen Delivery 05/08/22 05:26 Temperature 35.8 C L Pulse Rate 67 Respiratory Rate 18 Blood Pressure 120/43 L Pulse Oximetry 96 Oxygen Delivery Intake/Output Intake/Output: Intake & Output 05/05/22 05/06/22 05/07/22 05/08/22 23:59 23:59 23:59 23:59 Intake Total 780 820 920 460 Output Total 6900 2150 150 200 Balance -6120 -1330 770 260 Meds/Results Medications: Active Medications Generic Name Dose Route Start Last Admin Trade Name Freq PRN Reason Stop Dose Admin Acetaminophen 650 mg 05/02/22 17:21 05/07/22 01:14 Acetaminophen 325 Mg Tablet PO 650 mg Q4H PRN Administration Mild Pain (1-3) or F
[2022-05-08 12:02] LABS: Glucose Point of Care 106 mg/dl (65-105)
[2022-05-08 14:36] LABS: SARS-CoV-2 RNA PCR Negative
--- NOTE | 2022-05-08 15:15 | PM.PNNEP ---
Progress Note: A&P Assessment and Plan (1) End stage renal disease: Code(s): N18.6 - End stage renal disease Status: Chronic Assessment and Plan: due progression of disease from HTN, DM, cardiorenal syndrome and TITA due ongoing issues with #2 and #3 and worsening renal dysfunction, initiated on renal replacement therapy/dialysis s/p PermCath placement HD today would like to pursue outpatient peritoneal dialysis eventually will need outpatient hemodialysis on discharge (2) Acute on chronic combined systolic and diastolic CHF (congestive heart failure): Code(s): I50.43 - Acute on chronic combined systolic (congestive) and diastolic (congestive) heart failure Status: Acute Assessment and Plan: as noted by admission labs/imaging findings diuretic therapy alone not able to achieve euvolemia fluid removal with dialysis should help Cardiology following (3) Volume overload: Code(s): E87.70 - Fluid overload, unspecified Status: Chronic Assessment and Plan: s/p thoracentesis and paracentesis (05/05/22) fluid removal with dialysis follow volume status (4) Chronic anemia: Code(s): D64.9 - Anemia, unspecified Status: Chronic Assessment and Plan: due to ESRD Epogen with HD follow trend of H/H (5) Essential hypertension: Code(s): I10 - Essential (primary) hypertension Status: Chronic Assessment and Plan: tends to be on the lower end of normal at baseline (90 - 100 systolic) follow trend of hemodynamics (6) Diabetes: Code(s): E11.9 - Type 2 diabetes mellitus without complications Status: Chronic Assessment and Plan: follow accuchecks on SSI and Lantus Not opposed to discharge from renal perspective once outpatient dialysis schedule/unit/time finalized and otherwise medically stable. Will continue to follow. Subjective Date/time seen: 05/08/22 15:15 Tolerating hemodialysis treatment at the time of my visit (seen on HD at ~ 3:00PM); seems to be improving each day; back is sore but he thinks that is due to laying in bed too much and has no other acute complaints; no issues/evetns overnight or earlier this AM. Exam Narrative: General: WD/WN male in NAD Heart: normal S1 and S2; no rub Lungs: decreased at bases Abdomen: soft, nontender, mild distension, positive bowel sounds Extremities: no cyanosis or clubbing; trace edema Skin: no nodules Objective Data Vital Signs Vital Signs: Vital Signs Temp Pulse Resp BP Pulse Ox O2 Del Method 05/08/22 15:15 83 94/28 L 05/08/22 14:45 63 81/35 L 05/08/22 14:15 74 114/44 L 05/08/22 14:10 36.6 C 74 16 87/70 L 05/08/22 12:00 62 05/08/22 09:32 Room Air 05/08/22 08:00 70 05/08/22 05:26 35.8 C L 67 18 120/43 L 96 05/08/22 04:00 69 05/08/22 00:00 67 05/07/22 21:00 56 L 05/07/22 20:00 67 05/07/22 21:06 36.1 C L 64 18 109/40 L 92 Intake/Output Intake/Output: Intake & Output 05/05/22 05/06/22 05/07/22 05/08/22 23:59 23:59 23:59 23:59 Intake Total 780 820 920 940 Output Total 6900 2150 150 200 Balance -6120 -1330 770 740 Meds/Results Medications: Active Medications Generic Name Dose Route Start Last Admin Trade Name Freq PRN Reason Stop Dose Admin Acetaminophen 650 mg 05/02/22 17:21 05/07/22 01:14 Acetaminophen 325 Mg Tablet PO 650 mg Q4H PRN Administration Mild Pain (1-3) or Fever Hydrocodone Bitart/Acetaminophen 1 tab 05/04/22 16:30 Hydrocodone/Acetaminophen (*Crx) 5-325 Mg Tablet PO Q4H PRN Pain Rated 4-6 Aspirin 81 mg 05/03/22 09:00 05/08/22 09:32 Aspirin 81 Mg Enteric Tablet PO 81 mg DAILY JEFF Administration Atorvastatin Calcium 80 mg 05/03/22 09:00 05/08/22 09:32 Atorvastatin 40 Mg Tablet PO 80 mg DAILY JEFF Administration Carvedilol 12.5 mg 05/03/22
--- NOTE | 2022-05-08 15:15 | P.PNNP_ITS ---
Progress Note: A&P Assessment and Plan (1) End stage renal disease: Code(s): N18.6 - End stage renal disease Status: Chronic Assessment and Plan: * due progression of disease from HTN, DM, cardiorenal syndrome and TITA * due ongoing issues with #2 and #3 and worsening renal dysfunction, initiated on renal replacement therapy/dialysis * s/p PermCath placement * HD today * would like to pursue outpatient peritoneal dialysis eventually * will need outpatient hemodialysis on discharge (2) Acute on chronic combined systolic and diastolic CHF (congestive heart failure): Code(s): I50.43 - Acute on chronic combined systolic (congestive) and diastolic (congestive) heart failure Status: Acute Assessment and Plan: * as noted by admission labs/imaging findings * diuretic therapy alone not able to achieve euvolemia * fluid removal with dialysis should help * Cardiology following (3) Volume overload: Code(s): E87.70 - Fluid overload, unspecified Status: Chronic Assessment and Plan: * s/p thoracentesis and paracentesis (05/05/22) * fluid removal with dialysis * follow volume status (4) Chronic anemia: Code(s): D64.9 - Anemia, unspecified Status: Chronic Assessment and Plan: * due to ESRD * Epogen with HD * follow trend of H/H (5) Essential hypertension: Code(s): I10 - Essential (primary) hypertension Status: Chronic Assessment and Plan: * tends to be on the lower end of normal at baseline (90 - 100 systolic) * follow trend of hemodynamics (6) Diabetes: Code(s): E11.9 - Type 2 diabetes mellitus without complications Status: Chronic Assessment and Plan: * follow accuchecks * on SSI and Lantus Not opposed to discharge from renal perspective once outpatient dialysis schedule/unit/time finalized and otherwise medically stable. Will continue to follow. Subjective Date/time seen: 05/08/22 15:15 Tolerating hemodialysis treatment at the time of my visit (seen on HD at ~ 3:00PM); seems to be improving each day; back is sore but he thinks that is due to laying in bed too much and has no other acute complaints; no issues/evetns overnight or earlier this AM. Exam Narrative: General: WD/WN male in NAD Heart: normal S1 and S2; no rub Lungs: decreased at bases Abdomen: soft, nontender, mild distension, positive bowel sounds Extremities: no cyanosis or clubbing; trace edema Skin: no nodules Objective Data Vital Signs Vital Signs: Vital Signs Temp Pulse Resp BP Pulse Ox O2 Del Method 05/08/22 15:15 83 94/28 L 05/08/22 14:45 63 81/35 L 05/08/22 14:15 74 114/44 L 05/08/22 14:10 36.6 C 74 16 87/70 L 05/08/22 12:00 62 05/08/22 09:32 Room Air 05/08/22 08:00 70 05/08/22 05:26 35.8 C L 67 18 120/43 L 96 05/08/22 04:00 69 05/08/22 00:00 67 05/07/22 21:00 56 L 05/07/22 20:00 67 05/07/22 21:06 36.1 C L 64 18 109/40 L 92 Intake/Output Intake/Output: Intake & Output 05/05/22 05/06/22 05/07/22 05/08/22 23:59 23:59 23:59 23:59 Intake Total 780 820 920 940 Output Total 6900 2150 150 200 B
[2022-05-08] MEDS: EPOETIN ALFA-EPBX 10,000 UNITS/ML VIAL 10000 UNITS IV PUSH (16:04)
--- NOTE | 2022-05-08 16:05 | PM.DS ---
DS: Admitting Diagnosis Discharge Date May 09, 2022 Admitting Diagnosis Acute on chronic systolic heart failure DS: Discharge Diagnosis Discharge Diagnosis (1) Acute on chronic combined systolic and diastolic CHF (congestive heart failure): Code(s): I50.43 - Acute on chronic combined systolic (congestive) and diastolic (congestive) heart failure Status: Acute Assessment and Plan: Started Entresto per Cardiology, stable (2) Pleural effusion: Code(s): J90 - Pleural effusion, not elsewhere classified Status: Acute Assessment and Plan: Improved after thoracentesis and dialysis (3) CKD stage 4 due to type 2 diabetes mellitus: Code(s): E11.22 - Type 2 diabetes mellitus with diabetic chronic kidney disease; N18.4 - Chronic kidney disease, stage 4 (severe) Status: Acute Assessment and Plan: Well controlled (4) Ascites: Qualifiers: Ascites type: other type Qualified Code(s): R18.8 - Other ascites Code(s): R18.8 - Other ascites Status: Acute Assessment and Plan: Improved after paracentesis (5) End stage renal disease: Code(s): N18.6 - End stage renal disease Status: Chronic Assessment and Plan: End-stage renal disease on hemodialysis, temporary tunneled dialysis catheter port installed May 04, 2022, 1st hemodialysis treatment started May 05, plan is to convert to peritoneal dialysis in outpatient setting DS: Summary Hospital Course Hospital Course: 76-year-old male with past medical history significant for coronary artery disease status post CABG x2, ischemic cardiomyopathy status post ICD, right carotid stenosis status post carotid endarterectomy, diabetes mellitus, chronic kidney disease, sleep apnea noncompliant with CPAP, dyslipidemia is presenting with shortness of breath and progressively worsening sense of malaise as well as increasing edema. Cardiology and Nephrology were both consulted. Nephrology recommended hemodialysis, thoracentesis and paracentesis due to severe volume overload. Hemodialysis catheter was placed, hemodialysis was initiated. Thoracentesis and paracentesis were completed, see chart for details regarding removal volumes, patient symptoms resolved. Cardiology added Entresto for heart failure management. Patient's comorbid conditions remained stable during his hospitalization. He was discharged in good condition with a hemodialysis catheter in outpatient hemodialysis arranged with close management of Nephrology. Plan is to place peritoneal dialysis catheter on an outpatient basis for long-term treatment. Patient will follow closely with Cardiology outpatient for continued heart failure management. Time Spent with Patient Time attestation: Total time spent providing and/or coordinating discharge services: Exam Narrative: General: No acute distress, alert and oriented per baseline HEENT: Atraumatic, normocephalic, mucous membranes moist CV: Regular rate and rhythm, S1, S2 Lungs: Clear to auscultation bilaterally, no rales or crackles noted, no wheezes, good air entry Abdomen: Soft, nontender, nondistended Extremities: Normal to inspection, trace pitting edema bilateral lower extremities Skin: No rashes noted, no lesions or wounds seen Psych: Euthymic, normal affect DS: Data Data Completed and Pending Labs on day of discharge: Labs from last 24 hours 05/08/22 05/08/22 05/08/22 13:47 11:46 08:00 WBC RBC Hgb Hct MCV MCH MCHC RDW Plt Count MPV Sodium Potassium Chloride Carbon Dioxide Anion Gap BUN Creatinine Estim Creat Clear Calc Estimated GFR Glucose POC Capillary Glucose 106 H 91 Calcium Phosphorus Albumin SARS-CoV-2 RNA (RT-PCR) Negative 05/08/22 05/08/22 05/07/22 06:12 06:12 20:36 WBC 7.6 RBC 2.83 L Hgb 8.3 L Hct 27.5 L MCV 97.2 MCH 29.3 MCHC 30.2 L RDW
[2022-05-08 17:54] LABS: Glucose Point of Care 112 mg/dl (65-105)
--- NOTE | 2022-05-08 18:54 | PM.IMPN ---
Progress Note: A&P Assessment and Plan (1) Acute on chronic combined systolic and diastolic CHF (congestive heart failure): Code(s): I50.43 - Acute on chronic combined systolic (congestive) and diastolic (congestive) heart failure Status: Acute Assessment and Plan: Started Entresto per Cardiology, stable (2) Pleural effusion: Code(s): J90 - Pleural effusion, not elsewhere classified Status: Acute Assessment and Plan: Improved after thoracentesis and dialysis (3) CKD stage 4 due to type 2 diabetes mellitus: Code(s): E11.22 - Type 2 diabetes mellitus with diabetic chronic kidney disease; N18.4 - Chronic kidney disease, stage 4 (severe) Status: Acute Assessment and Plan: Well controlled (4) Ascites: Qualifiers: Ascites type: other type Qualified Code(s): R18.8 - Other ascites Code(s): R18.8 - Other ascites Status: Acute Assessment and Plan: Improved after paracentesis Plan End-stage renal disease on hemodialysis now, plan is to convert to peritoneal dialysis as an outpatient Subjective Date/time seen: 05/08/22 18:54 Interval history: Patient resting comfortably in bed. No overnight events noted. No chest pain or shortness of breath. No nausea, vomiting or diarrhea. No fevers or chills. Review of Systems Review of Systems: 12 point review of systems was assessed and was negative except as noted in the HPI Exam Narrative: General: No acute distress, alert and oriented per baseline HEENT: Atraumatic, normocephalic, mucous membranes moist CV: Regular rate and rhythm, S1, S2 Lungs: Clear to auscultation bilaterally, no rales or crackles noted, no wheezes, good air entry Abdomen: Soft, nontender, nondistended Extremities: Normal to inspection, trace pitting edema bilateral lower extremities Skin: No rashes noted, no lesions or wounds seen Psych: Euthymic, normal affect Objective Data Vital Signs Vital Signs: Vital Signs - 24 hr 05/07/22 21:06 05/07/22 20:00 05/07/22 21:00 Temperature 97 F L Pulse Rate 64 67 56 L Respiratory Rate 18 Blood Pressure 109/40 L Pulse Oximetry 92 Oxygen Delivery 05/08/22 00:00 05/08/22 04:00 05/08/22 05:26 Temperature 96.5 F L Pulse Rate 67 69 67 Respiratory Rate 18 Blood Pressure 120/43 L Pulse Oximetry 96 Oxygen Delivery 05/08/22 08:00 05/08/22 09:32 05/08/22 12:00 Temperature Pulse Rate 70 62 Respiratory Rate Blood Pressure Pulse Oximetry Oxygen Delivery Room Air 05/08/22 14:10 05/08/22 14:15 05/08/22 14:45 Temperature 97.9 F Pulse Rate 74 74 63 Respiratory Rate 16 Blood Pressure 87/70 L 114/44 L 81/35 L Pulse Oximetry Oxygen Delivery 05/08/22 15:15 05/08/22 15:45 05/08/22 16:00 Temperature Pulse Rate 83 65 65 Respiratory Rate Blood Pressure 94/28 L 108/37 L Pulse Oximetry Oxygen Delivery 05/08/22 16:15 05/08/22 17:20 05/08/22 16:45 Temperature 97.7 F Pulse Rate 69 73 69 Respiratory Rate 16 Blood Pressure 108/49 L 119/51 L 115/54 L Pulse Oximetry Oxygen Delivery 05/08/22 17:00 05/08/22 17:15 Temperature Pulse Rate 99 69 Respiratory Rate Blood Pressure 99/49 L 132/84 Pulse Oximetry Oxygen Delivery Intake/Output Intake/Output: Intake & Output 05/05/22 05/06/22 05/07/22 05/08/22 23:59 23:59 23:59 23:59 Intake Total 780 806 549 3402 Output Total 6900 2150 150 2800 [id number] [phone] Meds/Results Medications: Active Medications Generic Name Dose Route Start Last Admin Trade Name Freq PRN Reason Stop Dose Admin Acetaminophen 650 mg 05/02/22 17:21 05/07/22 01:14 Acetaminophen 325 Mg Tablet PO 650 mg Q4H PRN Administration Mild Pain (1-3) or Fever Hydrocodone Bitart/Acetaminophen 1 tab 05/04/22 16:30 Hydrocodone/Acetaminophen (*Crx) 5-325 Mg Tablet PO Q4H PRN Pain Rated 4-6 Aspirin 81 mg 0
[2022-05-08] MEDS: CHOLECALCIFEROL 1,000 UNITS TABLET 5000 UNITS PO (20:54)
[2022-05-08 21:04] LABS: Glucose Point of Care 119 mg/dl (65-105)
[2022-05-09] VITALS: PULSE 70
[2022-05-09 04:00] VITALS: PULSE 66
[2022-05-09] MEDS: LEVOTHYROXINE SODIUM 50 MCG TABLET PO (05:08)
[2022-05-09 06:00] VITALS: BP 134/65; PULSE 73; RESP 16; TEMP 36.1; O2SAT 96
[2022-05-09 07:41] LABS: Glucose Point of Care 92 mg/dl (65-105)
[2022-05-09 08:00] VITALS: PULSE 70
--- NOTE | 2022-05-09 08:33 | PM.PNCARD ---
Progress Note: A&P Assessment and Plan (1) Acute on chronic combined systolic and diastolic CHF (congestive heart failure): Code(s): I50.43 - Acute on chronic combined systolic (congestive) and diastolic (congestive) heart failure Status: Acute Assessment and Plan: Severe ischemic cardiomyopathy. Patient presents once again in acute decompensated heart failure. Inability to optimize medical therapy in the past because of hypotension and hyperkalemia. Patient s/p dialysis catheter placement during this hospitalization and has rec'd several treatments at this point. He has been restarted on Entresto and is tolerating this well. BP is stable. Remains on IV diuretic for now. (2) End stage renal disease: Code(s): N18.6 - End stage renal disease Status: Chronic Assessment and Plan: Now on HD. Plan to transition to PD as outpatient. (3) Pleural effusion: Code(s): J90 - Pleural effusion, not elsewhere classified Status: Acute Assessment and Plan: S/p thoracentesis, improved with this and dialysis Subjective Date/time seen: 05/09/22 08:33 Cardiology follow up for ICM, CHF, CAD Feels like he has more energy today. He is ambulating without difficulty breathing. Appetite is good. Still has LE swelling. Review of Systems Constitutional: Constitutional: Reports lethargy Eyes: Eyes: Reports no additional eye complaints ENT: Reports system reviewed and no additional complaints, except as documented Cardiovascular: Cardiovascular: Reports as per HPI and Reports dyspnea Respiratory: Respiratory: Reports dyspnea Gastrointestinal: Gastrointestinal: Reports no additional gastrointestinal complaints Musculoskeletal: Musculoskeletal: Reports arthralgias Integumentary/Breasts: Skin/Breast: Reports system reviewed and no additional complaints, except as docu Neurologic: Reports system reviewed and no additional complaints, except as documented Endocrine: Endocrine: Reports no additional endocrine complaints Hematologic/Lymphatic: Hematologic/Lymphatic: Reports no additional hematologic/lymphatic complaints Allergic/Immunologic: Allergic/Immunologic: Reports no additional allergic/immunologic complaints Exam Const: General: comfortable, no acute distress and in distress Other: Chronically ill-appearing gentleman sitting on the edge of the bed HENMT: Mouth: Yes moist mucous membranes and Yes dry mucous membranes Eyes: Sclera: sclerae normal Pupils: Equal, round and reactive pupils present Neck: Neck: supple and no JVD Carotids: no bruits Other: No carotid bruits, patient does have about 2-3 cm of JVD Resp: Effort & Inspection: normal respiratory effort Auscultation: clear to auscultation bilaterally Other: Dullness L base Cardio: Rate: regular rate Rhythm: regular rhythm Heart sounds: no murmurs Other: PMI is laterally displaced no audible murmur GI: Auscultation: normal bowel sounds Skin: General skin exam: normal color Neuro: Cranial nerves: Yes Equal, round and reactive pupils present Other: Normal cognition Extrem: Other: Patient has moderate bilateral lower extremity edema Objective Data Vital Signs Vital Signs: Vital Signs - 24 hr 05/08/22 09:32 05/08/22 12:00 05/08/22 14:10 Temperature 36.6 C Pulse Rate 62 74 Respiratory Rate 16 Blood Pressure 87/70 L Pulse Oximetry Oxygen Delivery Room Air 05/08/22 14:15 05/08/22 14:45 05/08/22 15:15 Temperature Pulse Rate 74 63 83 Respiratory Rate Blood Pressure 114/44 L 81/35 L 94/28 L Pulse Oximetry Oxygen Delivery 05/08/22 15:45 05/08/22 16:00 05/08/22 16:15 Temperature Pulse Rate 65 65 69 Respiratory Rate Blood Pressure 108/37 L 108/49 L Pulse Oximetry Oxygen Delivery 05/08/22 17:20 05/08/22 16:45 05/08/22 17:00 Temperature 36.5 C Pulse Rate 73 69 99 Respiratory Rate 16 Blood Pressure 119/51 L 115/54 L 99/49 L
[2022-05-09 09:29] VITALS: PULSE 70
[2022-05-09] MEDS: carvediloL 12.5 MG TABLET PO (09:29)
[2022-05-09] MEDS: ATORVASTATIN 40 MG TABLET 80 MG PO (09:29)
[2022-05-09] MEDS: SACUBITRIL/VALSARTAN 24-26 MG TABLET 1 TAB PO (09:29)
[2022-05-09] MEDS: OPTI-GEN TAB 1 TABLET PO (09:29)
[2022-05-09] MEDS: ASPIRIN 81 MG ENTERIC TABLET PO (09:30)
[2022-05-09] MEDS: ISOSORBIDE MONONITRATE 60 MG TAB.ER.24H PO (09:30)
[2022-05-09] MEDS: FUROSEMIDE INJ 40 MG/4 ML VIAL IV PUSH (09:30)
[2022-05-09] MEDS: INSULIN GLARGINE (*BKC) 100 UNITS/ML SUB-Q (09:31)
--- NOTE | 2022-05-09 09:55 | P.PNNP_ITS ---
Progress Note: A&P Assessment and Plan (1) End stage renal disease: Code(s): N18.6 - End stage renal disease Status: Chronic Assessment and Plan: * due progression of disease from HTN, DM, cardiorenal syndrome and TITA * due ongoing issues with #2 and #3 and worsening renal dysfunction, initiated on renal replacement therapy/dialysis * s/p PermCath placement * HD yesterday and outpatient schedule to be M/W/F * would like to pursue outpatient peritoneal dialysis eventually (2) Acute on chronic combined systolic and diastolic CHF (congestive heart failure): Code(s): I50.43 - Acute on chronic combined systolic (congestive) and diastolic (congestive) heart failure Status: Acute Assessment and Plan: * as noted by admission labs/imaging findings * diuretic therapy alone not able to achieve euvolemia * fluid removal with dialysis should help * Cardiology following (3) Volume overload: Code(s): E87.70 - Fluid overload, unspecified Status: Chronic Assessment and Plan: * s/p thoracentesis and paracentesis (05/05/22) * fluid removal with dialysis * follow volume status (4) Chronic anemia: Code(s): D64.9 - Anemia, unspecified Status: Chronic Assessment and Plan: * due to ESRD * Epogen with HD * follow trend of H/H (5) Essential hypertension: Code(s): I10 - Essential (primary) hypertension Status: Chronic Assessment and Plan: * tends to be on the lower end of normal at baseline (90 - 100 systolic) * follow trend of hemodynamics (6) Diabetes: Code(s): E11.9 - Type 2 diabetes mellitus without complications Status: Chronic Assessment and Plan: * follow accuchecks * on SSI and Lantus Not opposed to discharge from renal perspective once outpatient dialysis schedule/unit/time finalized and otherwise medically stable. Will continue to follow. Subjective Date/time seen: 05/09/22 09:55 Tolerated hemodialysis treatment yesterday without any issues or problems; relative hypotension limits aggressive ultrafiltration but did ultrafiltrate about 2.6L yesterday; states he feels that he has more energy at the time of my visit; no issue/events overnight or earlier this AM. Exam Narrative: General: WD/WN male in NAD Heart: normal S1 and S2; no rub Lungs: decreased at bases Abdomen: soft, nontender, mild distension, positive bowel sounds Extremities: no cyanosis or clubbing; trace - 1+ edema Skin: warm and dry Objective Data Vital Signs Vital Signs: Vital Signs Temp Pulse Resp BP Pulse Ox 05/09/22 09:29 70 05/09/22 06:00 36.1 C L 73 16 134/65 96 05/09/22 04:00 66 05/09/22 00:00 70 05/08/22 21:37 36.1 C L 75 16 106/34 L 95 05/08/22 20:00 70 05/08/22 20:55 75 05/08/22 17:15 69 132/84 05/08/22 17:00 99 99/49 L 05/08/22 16:45 69 115/54 L 05/08/22 17:20 36.5 C 73 16 119/51 L 05/08/22 16:15 69 108/49 L 05/08/22 16:00 65 05/08/22 15:45 65 108/37 L 05/08/22 15:15 83 94/28 L 05/08/22 14:45 63 81/35 L 05/08/22 14:15 74 114/44 L 05/08/22 14:10 36.6 C 74 16 87/70 L 05/08/22 12:00 62 Intake/Output Intake/Out
--- NOTE | 2022-05-09 09:55 | PM.PNNEP ---
Progress Note: A&P Assessment and Plan (1) End stage renal disease: Code(s): N18.6 - End stage renal disease Status: Chronic Assessment and Plan: due progression of disease from HTN, DM, cardiorenal syndrome and TITA due ongoing issues with #2 and #3 and worsening renal dysfunction, initiated on renal replacement therapy/dialysis s/p PermCath placement HD yesterday and outpatient schedule to be M/W/F would like to pursue outpatient peritoneal dialysis eventually (2) Acute on chronic combined systolic and diastolic CHF (congestive heart failure): Code(s): I50.43 - Acute on chronic combined systolic (congestive) and diastolic (congestive) heart failure Status: Acute Assessment and Plan: as noted by admission labs/imaging findings diuretic therapy alone not able to achieve euvolemia fluid removal with dialysis should help Cardiology following (3) Volume overload: Code(s): E87.70 - Fluid overload, unspecified Status: Chronic Assessment and Plan: s/p thoracentesis and paracentesis (05/05/22) fluid removal with dialysis follow volume status (4) Chronic anemia: Code(s): D64.9 - Anemia, unspecified Status: Chronic Assessment and Plan: due to ESRD Epogen with HD follow trend of H/H (5) Essential hypertension: Code(s): I10 - Essential (primary) hypertension Status: Chronic Assessment and Plan: tends to be on the lower end of normal at baseline (90 - 100 systolic) follow trend of hemodynamics (6) Diabetes: Code(s): E11.9 - Type 2 diabetes mellitus without complications Status: Chronic Assessment and Plan: follow accuchecks on SSI and Lantus Not opposed to discharge from renal perspective once outpatient dialysis schedule/unit/time finalized and otherwise medically stable. Will continue to follow. Subjective Date/time seen: 05/09/22 09:55 Tolerated hemodialysis treatment yesterday without any issues or problems; relative hypotension limits aggressive ultrafiltration but did ultrafiltrate about 2.6L yesterday; states he feels that he has more energy at the time of my visit; no issue/events overnight or earlier this AM. Exam Narrative: General: WD/WN male in NAD Heart: normal S1 and S2; no rub Lungs: decreased at bases Abdomen: soft, nontender, mild distension, positive bowel sounds Extremities: no cyanosis or clubbing; trace - 1+ edema Skin: warm and dry Objective Data Vital Signs Vital Signs: Vital Signs Temp Pulse Resp BP Pulse Ox 05/09/22 09:29 70 05/09/22 06:00 36.1 C L 73 16 134/65 96 05/09/22 04:00 66 05/09/22 00:00 70 05/08/22 21:37 36.1 C L 75 16 106/34 L 95 05/08/22 20:00 70 05/08/22 20:55 75 05/08/22 17:15 69 132/84 05/08/22 17:00 99 99/49 L 05/08/22 16:45 69 115/54 L 05/08/22 17:20 36.5 C 73 16 119/51 L 05/08/22 16:15 69 108/49 L 05/08/22 16:00 65 05/08/22 15:45 65 108/37 L 05/08/22 15:15 83 94/28 L 05/08/22 14:45 63 81/35 L 05/08/22 14:15 74 114/44 L 05/08/22 14:10 36.6 C 74 16 87/70 L 05/08/22 12:00 62 Intake/Output Intake/Output: Intake & Output 05/06/22 05/07/22 05/08/22 05/09/22 23:59 23:59 23:59 23:59 Intake Total 744 121 5593 500 Output Total 2150 150 2800 200 Balance -1330 770 -1260 300 Meds/Results Medications: Active Medications Generic Name Dose Route Start Last Admin Trade Name Hilton PRN Reason Stop Dose Admin Acetaminophen 650 mg 05/02/22 17:21 05/07/22 01:14 Acetaminophen 325 Mg Tablet PO 650 mg Q4H PRN Administration Mild Pain (1-3) or Fever Hydrocodone Bitart/Acetaminophen 1 tab 05/04/22 16:30 Hydrocodone/Acetaminophen (*Crx) 5-325 Mg Tablet PO Q4H PRN Pain Rated 4-6 Aspirin 81 mg 05/03/22 09:00 05/09/22 09:30 Aspirin 81 Mg Enteric Tablet PO 81 mg
[2022-05-09 11:46] LABS: Glucose Point of Care 190 mg/dl (65-105)
[2022-05-09 12:00] VITALS: PULSE 63
== END 2022-05-09 12:40 | disposition home health service (06) | DRG 291 ==
LOC: ANHED 17:50 → ANHIMU 18:59 → ANH3MEDSUR 05-04 21:57
PROVIDERS: Internal Medicine Nephrology; Surgery; Admitting Provider Family Medicine; Emergency Provider Family Medicine; PCP Family Medicine; Visit Provider Student in an Organized Health Care Education/Training Program
PROC: 0JH63XZ Insertion of Tunneled Vascular Access Device into Chest Subcutaneous Tissue and Fascia, Percutaneous Approach (ICD-10-PCS; CPT 36908; principal; 2022-05-04 14:00)
DX: I13.2 Hypertensive heart and chronic kidney disease with heart failure and with stage 5 chronic kidney disease, or end stage renal disease (principal); I50.43 Acute on chronic combined systolic (congestive) and diastolic (congestive) heart failure; N18.6 End stage renal disease; J90 Pleural effusion, not elsewhere classified; R18.8 Other ascites; E11.22 Type 2 diabetes mellitus with diabetic chronic kidney disease; Z87.891 Personal history of nicotine dependence; J44.9 Chronic obstructive pulmonary disease, unspecified; E03.9 Hypothyroidism, unspecified; K21.9 Gastro-esophageal reflux disease without esophagitis; E78.2 Mixed hyperlipidemia; G47.33 Obstructive sleep apnea (adult) (pediatric); E11.51 Type 2 diabetes mellitus with diabetic peripheral angiopathy without gangrene; Z95.1 Presence of aortocoronary bypass graft; L40.9 Psoriasis, unspecified; Z86.718 Personal history of other venous thrombosis and embolism; I65.23 Occlusion and stenosis of bilateral carotid arteries; M19.91 Primary osteoarthritis, unspecified site; Z82.49 Family history of ischemic heart disease and other diseases of the circulatory system; D63.1 Anemia in chronic kidney disease; Z95.820 Peripheral vascular angioplasty status with implants and grafts; Z95.810 Presence of automatic (implantable) cardiac defibrillator; E87.5 Hyperkalemia; Z99.2 Dependence on renal dialysis; Z79.82 Long term (current) use of aspirin; Z79.4 Long term (current) use of insulin; I25.5 Ischemic cardiomyopathy; Z79.899 Other long term (current) drug therapy
CPT/HCPCS: 32555; 36415; 49083; 71046; 71250; 77001; 80048; 80053; 80069; 82948; 83735; 83880; 84484; 85025; 85027; 85055; 85610; 85730; 86704; 86706; 86803; 86850; 86900; 86901; 87340; 93005; 96372; 96374; 96376; 97110; 97116; 97161; 97165; 97530; 97535; 99285; A9270; C1750; C9803; G0257; G0378; J0330; J0461; J0690; J1100; J1644; J1815; J1940; J2250; J2370; J2405; J2704; J7030; P9047; Q5105; U0003; U0005

== ENCOUNTER 2022-05-12 12:54 | Inpatient (IN) | payer MEDICARE, SELFPAY ==
[2022-05-12] VITALS (19 sets, daily range): BP systolic 84–117; BP diastolic 34–48; PULSE 57–80; RESP 7–20; TEMP 36.2–37.2; O2SAT 90–99; BMI 28.1
--- NOTE | ~2022-05-12 | US_ITS ---
US abdomen limited INDICATION: Cirrhosis. Ascites. PROCEDURE: Realtime right upper abdominal ultrasound. COMPARISON: No prior studies for comparison. FINDINGS: The pancreas is normal without focal mass or pancreatic ductal dilation. There is cirrhosi s of the liver. Small amount of ascites. There is normal directional flow in the portal vein. Gallbladder wall is mildly thickened measuring 3.2 mm. There are echogenic foci in the gallbladder zion men with shadowing, consistent with stones. Common bile duct measures 4 mm. No sonographic Treadwell's sign. IMPRESSION: 1: Cirrhosis of the liver. 2: Cholelithiasis. 3: Small amount of ascites. 4: Mild gallbladder wall thickening. This could indicate interstitial edema, chronic liver disease or chronic cholecystitis. Reviewed, dictated and finalized at location A. IMPRESSION: 1: Cirrhosis of the liver. 2: Cholelithiasis. 3: Small amount of ascites. 4: Mild gallbladder wall thickening. This could indicate interstitial edema, ch ronic liver disease or chronic cholecystitis.
--- NOTE | ~2022-05-12 | US_ITS ---
EXAMINATION: US paracentesis abd w/image DATE: 05/20/2022 13:04 INDICATION: Ascites. TECHNIQUE: The procedure and its risks and benefits were discussed with the patient. Potential risks discussed included bleeding and infection. The skin was prepped and draped in sterile fashion. 1% lid ocaine was used for local anesthesia. Under ultrasound guidance, a 5 Fr catheter with trochar was adv anced into the ascites in the subhepatic lateral right abdomen. Fluid was aspirated into vacuum bottl es. The catheter was removed, and a dressing was applied. There were no immediate complications. FINDINGS: Ultrasound images demonstrate ascites and the catheter within the fluid. IMPRESSION: 1. Successful ultrasound-guided paracentesis yielding 3800 mL of cloudy yellowish fluid. Reviewed, dictated and finalized at location A. IMPRESSION: 1. Successful ultrasound-guided paracentesis yielding 3800 mL of cloudy yellow jessica fluid.
--- NOTE | ~2022-05-12 | US_ITS ---
EXAMINATION: US thoracentesis DATE: 05/20/2022 13:03 INDICATION: Left pleural effusion TECHNIQUE: The procedure and its risks and benefits were discussed with the patient. Potential risks discussed included bleeding, infection, and pneumothorax. The patient understood the risks and agreed to proceed. The skin was prepped and draped in sterile fashion. 1% lidocaine was used for local anes thesia. Under ultrasound guidance, a 5 Fr catheter with trochar was advanced into the left pleural ef fusion. Fluid was aspirated. The catheter was removed, and a dressing was applied. There were no imme diate complications. FINDINGS: Ultrasound images demonstrate a small left pleural effusion and the catheter within the fluid. IMPRESSION: 1. Successful ultrasound-guided thoracentesis yielding 500 mL of slightly cloudy yellowish fluid. Reviewed, dictated and finalized at location A. IMPRESSION: 1. Successful ultrasound-guided thoracentesis yielding 500 mL of slightly clou dy yellowish fluid.
--- NOTE | ~2022-05-12 | XR_ITS ---
EXAMINATION: XR abdomen NG/feed tube insert INDICATION: Nasogastric tube placement TECHNIQUE: Portable AP KUB-NG at 0802 hours COMPARISON: CT from yesterday FINDINGS: The nasogastric tube is in the stomach. There is a small left pleural effusion. Cardiomegal y is noted. A single lead pacemaker of the left chest wall ends with its lead in the right ventricle. There is a large bore right subclavian central venous catheter with its tip in the right atrium. IMPRESSION: 1. Nasogastric tube in the stomach. Reviewed, dictated and finalized at location B.
--- NOTE | ~2022-05-12 | US_ITS ---
EXAMINATION:US venous doppler LE BI INDICATION:Leg swelling TECHNIQUE: Multiple grayscale, color flow and Doppler images of the right and left lower extremity de ep venous systems were obtained and reviewed. COMPARISON:Ultrasound dated 12/27/2021 FINDINGS: The common femoral, superficial femoral and popliteal veins demonstrate normal respiratory variation, augmentation and compressibility. Color flow is also seen within the posterior tibial, gr eater saphenous and profunda veins. There is deep venous thrombosis of the right peroneal vein which is partially compressible. IMPRESSION: 1: Deep venous thrombosis the right peroneal vein. Dr. Jerry Monge discussed with patient's nurseJil on third medical floor at 05/21/2022 14:54 CDT. Reviewed, dictated and finalized at location A.
--- NOTE | ~2022-05-12 | XR_ITS ---
EXAMINATION: XR chest 2V Exam Date/Time: 05/13/2022 17:04 CDT HISTORY: CHF Comparison: 05/12/2022. RESULT: Lines, tubes, and devices: Right subclavian dialysis catheter, unchanged. Left chest AICD. Intact st ernotomy wires. Mediastinal clips.. Lungs and pleura: Unchanged mild reticular pulmonary opacities and moderate left angle blunting. Cardiomediastinal silhouette: Stable cardiomediastinal silhouette. Other: No acute osseous or upper abdominal finding. IMPRESSION: Stable interstitial edema and moderate left effusion. Reviewed, dictated and finalized at location K.
--- NOTE | ~2022-05-12 | XR_ITS ---
EXAMINATION: XR abdomen/kub 1V INDICATION: Small bowel obstruction TECHNIQUE: Supine views of the abdomen were obtained on three radiographs. COMPARISON: 05/17/2022 FINDINGS: No definitely dilated loops of bowel are identified. The abdomen is relatively gasless. The nasogastric tube is in the stomach. Again noted is a paucity of gas in the right abdomen which could reflect ascites. A partially imaged left pleural effusion is noted. 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 Vascular stents and surgical clips are noted in the upper abdomen. IMPRESSION: 1. No definitely dilated loops of bowel identified however relatively gasless mid abdomen could refle ct fluid-filled loops of small bowel. 2. Probable ascites. Reviewed, dictated and finalized at location B. IMPRESSION: 1. No definitely dilated loops of bowel identified however relatively gasless m id abdomen could reflect fluid-filled loops of small bowel. 2. Probable ascites.
--- NOTE | ~2022-05-12 | XR_ITS ---
EXAMINATION: XR UGI water soluble w sbs DATE: 05/18/2022 12:15 INDICATION: Ileus versus small bowel obstruction TECHNIQUE: Water-soluble contrast was injected through the existing nasogastric tube. Conventional [place] abdomen radiographs and fluoroscopic spot radiographs of the stomach and proximal small bowel we re obtained. Additional overhead radiographs were obtained during the transit through the small bowel . A total of 23 fluoroscopic images and 5 overhead radiographs were obtained. Fluoroscopy exposure ti me was minutes. COMPARISON: CT dated 05/15/2022. FINDINGS: Nasogastric tube tip in proximal side port in the body of the stomach. There are several surgical cli ps in the left upper quadrant. Median sternotomy wires and mediastinal surgical clips are seen, likel y from prior coronary artery bypass grafting. Distal tip of a cardiac pacemaker/AICD projects over th e right ventricle. There is a small sliding-type hiatal hernia. There is reflux of contrast from the intra-abdominal portion stomach into the small intrathoracic portion of the stomach as well as additi onal gastroesophageal reflux of a small amount of contrast extending cephalad to the mid esophagus. T he stomach is normal. Transit time from the stomach to proximal colon was approximately 1 hour. There is normal caliber and mucosal fold pattern throughout the small bowel. IMPRESSION: 1. Normal small bowel with transit time to the colon of proximal one hour. 2. Small sliding-type hiatal hernia with gastroesophageal reflux. Reviewed, dictated and finalized at location A.
--- NOTE | ~2022-05-12 | XR_ITS ---
XR chest 2V 05/12/2022 13:44 Indication: Hypotension. CHF. Procedure: 2 view chest Comparison: Comparison to multiple prior studies sequentially, with oldest reviewed study dated 03/26. Findings: Status post median sternotomy for CABG. Moderate cardiomegaly. Large bore central venous ca theter tip near the cavoatrial junction. Moderate left pleural effusion. Mild interstitial edema. Lef t basilar atelectasis. Impression: 1: Cardiomegaly with mild interstitial edema. 2: Left pleural effusion. Reviewed, dictated and finalized at location A. Impression: 1: Cardiomegaly with mild interstitial edema. 2: Left pleural effusion.
--- NOTE | ~2022-05-12 | XR_ITS ---
[id number] 05/20/2022 12:52 Indication: Left-sided thoracentesis. Procedure: AP and lateral views of the chest Comparison: Comparison to multiple prior studies sequentially, with oldest reviewed study dated 03/26. Findings: Status post median sternotomy for CABG. Port catheter tips near the cavoatrial junction. Pa cemaker lead tips in the right ventricle. Moderate cardiomegaly. Mild interstitial edema. Small left pleural effusion. No pneumothorax. No acute osseous abnormality. There is a hiatal hernia. Impression: 1: Moderate cardiomegaly with mild interstitial edema. 2: Small left pleural effusion. Reviewed, dictated and finalized at location A. Impression: 1: Moderate cardiomegaly with mild interstitial edema. 2: Small left pleural effusion.
--- NOTE | ~2022-05-12 | XR_ITS ---
EXAMINATION: XR abdomen/kub 1V INDICATION: Small bowel obstruction TECHNIQUE: Supine views of the abdomen were obtained on 2 radiographs. COMPARISON: CT, 05/15/2022 FINDINGS: There is a dilated loop of small bowel in the midabdomen. A nasogastric tube is in the stom ach. No free intraperitoneal gas is identified. Paucity of gas in the right abdomen likely represents abdominal ascites seen on the comparison CT scan. There is a glglv-ij-mhysopio sized left pleural ef fusion. 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 Vascular stents are noted in the upper abdo men. IMPRESSION: 1. Dilated small bowel, consistent with ileus versus obstruction. 2. Probable persistent ascites. 3. Ztfzd-vj-mvdpcwkf sized left pleural effusion. Reviewed, dictated and finalized at location B. IMPRESSION: 1. Dilated small bowel, consistent with ileus versus obstruction. 2. Probable persistent ascites. 3. Iobqj-xo-iysulfvr sized left pleural effusion.
--- NOTE | ~2022-05-12 | XR_ITS ---
EXAM: XR abdomen/kub 1V DATE: 05/13/2022 17:11 HISTORY: kidney disease . COMPARISON: CT abdomen and pelvis 12/26/2021.. FINDINGS: Surgical clips and vascular stents over the midline of the upper abdomen. Multiple loops o f dilated small bowel. Gas is present within the large bowel. Centralization of bowel loops as can oc cur with ascites. Degenerative change in the spine and left hip. IMPRESSION: Small bowel obstruction/ileus. Abdominal ascites. Reviewed, dictated and finalized at location K.
--- NOTE | ~2022-05-12 | XR_ITS ---
EXAM: XR abdomen/kub 1V DATE: 05/15/2022 21:17 HISTORY: SBO -v- ileus . COMPARISON: CT abdomen and pelvis, same date, x-ray abdomen 05/13/2022. FINDINGS: Multiple loops of dilated small bowel in the midabdomen, slightly decreased in diameter si nce the prior radiographs, although several loops now display wall thickening which is new. Gas is pr esent within the distal colon, suggesting these findings may represent ileus or partial obstruction. Large volume ascites. IMPRESSION: Decreasing small bowel dilation, with interval increased wall thickening. Reviewed, dictated and finalized at location K. IMPRESSION: Decreasing small bowel dilation, with interval increased wall thick ening.
--- NOTE | ~2022-05-12 | CT_ITS ---
EXAMINATION: CT abdomen pelvis wo con DATE: 05/15/2022 16:47 INDICATION: nausea vomiting TECHNIQUE: Computed tomography (CT) of the abdomen and pelvis was performed without intravenous contr ast. Automated exposure control and iterative reconstruction technique were employed. The dose-length product was 793.64 mGy-cm. COMPARISON: 12/26/2021. FINDINGS: Lower thorax: Bibasilar atelectasis. Moderate left pleural effusion. Marked cardiomegaly. Severe meri nary artery calcification. Incompletely visualized pacer/defibrillator leads. Liver: Liver is small with a nodular border. Biliary/Gallbladder: Cholelithiasis. No bile duct dilation. Pancreas: No mass or duct dilation. Spleen: Normal. Adrenals:Thickening, likely hyperplasia. No nodules. Kidneys: Right renal atrophy. Bilateral nonobstructive calcifications. GI tract: Dilated proximal and mid small bowel, transition point possibly in the right lower quadrant in the distal small bowel. Several loops in the mid abdomen have thickened arroyo. Appendix not visua lized. Mesentery/Peritoneum: Large volume ascites. Upper abdominal enlarged lymph nodes. Retroperitoneum: No mass. Atherosclerotic abdominal aortic and/or arterial calcifications. Pelvis: Pelvic organs are within normal limits. Soft Tissues: Body wall edema. Numerous anterior abdominal wall hernias containing fluid. Bilateral g ynecomastia. Bones: No acute osseous finding. IMPRESSION: Distal small bowel obstruction, transition point in the right lower quadrant, possibly from adhesion. Multiple mid abdominal small bowel loops have thickened arroyo as can be seen with infection, inflamm ation, and ischemia. Small left pleural effusion. Large volume ascites. Cirrhosis with portal hyperte nsion. Mediastinal lymphadenopathy. Results reported telephonically to the charge nurse Jessica Lugo by Dr. Duran at 7:25 PM on 2021. Reviewed, dictated and finalized at location K. IMPRESSION: Distal small bowel obstruction, transition point in the right lower quadrant, p ossibly from adhesion. Multiple mid abdominal small bowel loops have thickened arroyo as can be seen with infection, inflammation, and ischemia. Small left ple ural effusion. Large volume ascites. Cirrhosis with portal hypertension. Medias tinal lymphadenopathy. Results reported telephonically to the charge nurse Jessica Lugo by Dr. Rolando combs at 7:25 PM on 05/15/2022.
--- NOTE | 2022-05-12 12:58 | ECG_ITS ---
Measurements Intervals [place] Rate: 55 P: 18 [place]: 162 QRS: 9 QRSD: 138 T: 175 QT: 451 QTc: 434 Interpretive Statements SINUS BRADYCARDIA INCOMPLETE LEFT BUNDLE BRANCH BLOCK CONSIDER INFERIOR INFARCT, AGE INDETERMINATE ST-T WAVE ABNORMALITY IN ANTEROLAT/HIGH LAT LEADS- CONSIDER ISCHEMIA BASELINE ARTIFACT- I, IIAVR, AVL, AVF ABNORMAL ECG Electronically Signed On 05-12-2022 13:13:19 CDT by Leon Mckeon D.O.
[2022-05-12 13:23] LABS: Basophils Percent Auto 0.5 % (0.2-1.2); Eosinophils Absolute Auto 0.3 K/mm3 (0-0.3); Eosinophils Percent Auto 3.6 % (0-4.4); Hematocrit 27.2 % (42.0-52.0); Hemoglobin 8.2 g/dL (14.0-18.0); Immature Granulocyte Absolute 0.03 K/mm3 (0.00-0.031); Immature Granulocyte Percent A 0.4 % (0-0.5); Lymphocytes Absolute Auto 0.91 K/mm3 (0.9-3.2); Lymphocytes Percent Auto 11.8 % (18.3-44.2); Mean Corpuscular HGB Conc 30.1 g/dl (32-36); Mean Corpuscular Hemoglobin 29.6 pg (26-34); Mean Corpuscular Volume 98.2 fl (80-100); Mean Platelet Volume 10.7 fl (7.4-10.4); Monocytes Absolute Auto 0.9 K/mm3 (0.1-0.6); Neutrophils Absolute Auto 5.5 K/mm3 (1.3-6.7); Neutrophils Percent Auto 71.7 % (45.5-73.1); Platelet Count Result 146 k/mm3 (150-375); Red Blood Count 2.77 M/mm3 (4.6-6.20); Red Cell Distribution Width 17.9 % (11.5-14.5); White Blood Count 7.7 K/mm3 (4.5-10.0)
--- NOTE | 2022-05-12 13:25 | ED.GENADULT ---
HPI - General Adult General Chief complaint: Weakness Stated complaint: sudden onset of weakness only got 45 min dialysis Time Seen by Provider: 05/12/22 13:25 Source: patient and EMS Mode of arrival: EMS Limitations: no limitations History of Present Illness HPI narrative: Patient went to dialysis today, without any complaint, 45 minutes later patient developed massive diarrhea, lightheadedness and weakness. Blood pressure went down, then referred to the emergency room. Currently patient feeling okay denying any symptoms. Patient reports a history of diarrhea 2 weeks ago and was hospitalized in our hospital at that time. Related Data Home Medications Medication Instructions Recorded Confirmed atorvastatin 80 mg tablet (Lipitor) 80 mg PO DAILY 09/23/19 05/02/22 vit C 250 mg-vit E 90 mg-zinc 40 1 cap PO Q12H 10/20/20 05/02/22 mg-copper 1 un-ewexcb-pdriar capsule (PreserVision AREDS-2) aspirin 81 mg tablet,delayed 81 mg PO DAILY 01/19/21 05/02/22 release (Adult Aspirin Regimen) cholecalciferol (vitamin D3) 125 125 mcg PO HS 08/02/21 05/02/22 mcg (5,000 unit) capsule insulin glargine 100 unit/mL (3 5 unit subcut QAM 08/02/21 05/02/22 mL) subcutaneous pen (Basaglar KwikPen U-100 Insulin) isosorbide mononitrate 60 mg 60 mg PO DAILY 08/02/21 05/02/22 tablet,extended release 24 hr clopidogrel 75 mg tablet (Plavix) 75 mg PO DAILY 05/02/22 05/02/22 Allergies Allergy/AdvReac Type Severity Reaction Status Date / Time Penicillins Allergy Unknown UNKNOWN Verified 05/03/22 08:20 A CHILD,Unknown Review of Systems Review of Systems: All systems reviewed & are unremarkable except as noted in HPI and below [facility] Past Medical History Medical History Abdominal aortic aneurysm Acute on chronic combined systolic and diastolic CHF (congestive heart failure) Arthritis Ascites Carotid stenosis, bilateral Carpal tunnel syndrome Chronic anemia Chronic kidney disease, stage 4 (severe) CKD stage 4 due to type 2 diabetes mellitus COPD (chronic obstructive pulmonary disease) Deep venous thrombosis Essential hypertension Gastroesophageal reflux disease Heart failure with reduced ejection fraction Echo in 07/2021: 1. Technically difficult study with limited views. 2. Moderately reduced LF function with an EF estimated at 30-35% with hypokinesis of the mid to basal anterolateral, inferior, anterior, and basal inferoseptal arroyo with relative sparing of the apex. 3. Mildly increased LV wall thickness. 4. Left atria is moderately enlarged. 5. Mild tricuspid valve regurgitation. 6. Severe pulmonary hypertension with an estimated pulmonary arterial systolic pressure of 65 mmHg. Hypothyroidism Insulin dependent type 2 diabetes mellitus Mixed hyperlipidemia Nonsustained ventricular tachycardia Obstructive sleep apnea Intolerant to CPAP. Wears oxygen at nighttime. Pancreatitis Peripheral vascular disease Psoriasis Umbilical hernia without obstruction and without gangrene Vertigo Volume overload Surgical History Surgical History H/O abdominal surgery Revascularization to renal arteries and mesenteric artery H/O fasciotomy Right leg History of cataract extraction History of embolectomy Right leg History of stent insertion of renal artery History of tonsillectomy Hx of CABG Initially 5 vessel CABG and later on he had 1 that was redone now for those vessels are occluded he has collateral only the saphenous vein graft to the Left anterior descending is patent and otherwise his coronary arteries are occluded and all depend on the graft flow. Hx of cardiac catheterization Multiple times Presence of combination internal cardiac defibrillator (ICD) and pacemaker S/P carotid endarterectomy Family History Family History Mother Hypertension Family histo
--- NOTE | 2022-05-12 13:33 | PC.NURSE ---
Patient states he makes very little urine and probably will not be able to give urine specimen.
[2022-05-12 13:38] LABS: Alanine Aminotransferase 10 U/L (6-50); Albumin Level 2.9 g/dL (3.5-5.1); Alkaline Phosphatase 107 U/L (38-126); Anion Gap 7 mmol/L (8-16); Aspartate Amino Transferase 21 U/L (17-59); Bilirubin,Total 0.4 mg/dL (0.2-1.3); Blood Urea Nitrogen 34 mg/dL (9-20); Calcium 7.8 mg/dL (8.4-10.2); Carbon Dioxide 27 mmol/L (22-30); Chloride 102 mmol/L (98-107); Estimated CRCL calculation 17 ml/min; Estimated Glomerular Filt Rate 18; Glucose 91 mg/dL (65-110); Potassium 3.7 mmol/L (3.4-5.0); Sodium 136 mmol/L (137-145)
[2022-05-12 14:28] LABS: Lactic Acid Reflex 1.2 mmol/L (0.7-2.0)
[2022-05-12 14:34] LABS: INR 1.2
[2022-05-12 14:35] LABS: Partial Thromboplastin Time 39.1 SECONDS (22.3-36.8)
--- NOTE | 2022-05-12 14:49 | PM.IMHP ---
H&P: HPI History of Present Illness Date/Time: 05/12/22 14:49 Chief Complaint: Hypotension/weakness Narrative: Patient is a 76-year-old male with a past medical history of hyperlipidemia, CAD, hypertension, COPD, CKD on dialysis, diabetes who presented to the ED today from dialysis for hypotension. It was reported the patient went to dialysis today and was hooked up when he had a large diarrhea bowel movement and became very hypotensive. Patient stated that he went home and could not get up the 1st step and then collapsed after the 2nd step. Blood pressure was reported to be 73/50. Patient stated that he never lost consciousness however he has had diarrhea and very recent past. Patient stated that he get about 45 minutes of dialysis before they abduct him due to the hypotension. Patient was given 1 L of fluids in the ED his blood pressure came up to 103/42. When his blood pressure did go down patient stated he was very weak and was unable to function. He denied any chest pain, shortness of breath, nausea, vomiting, constipation, or fatigue. Patient did state that his dad lightheaded and dizzy. Currently the patient has no symptoms and feels okay. Patient is being admitted under observation status for dialysis possibly tomorrow. Dr. Ureña has been consulted. It appears the patient was just discharged on 05/08/22 for what appears to be fluid overload and did have a pleural effusion and ascites. Both of which were tapped. Review of Systems Review of Systems: All systems reviewed & are unremarkable except as noted in HPI and below PMFSH Past Medical History Medical History Abdominal aortic aneurysm Acute on chronic combined systolic and diastolic CHF (congestive heart failure) Arthritis Ascites Carotid stenosis, bilateral Carpal tunnel syndrome Chronic anemia Chronic kidney disease, stage 4 (severe) CKD stage 4 due to type 2 diabetes mellitus COPD (chronic obstructive pulmonary disease) Deep venous thrombosis Essential hypertension Gastroesophageal reflux disease Heart failure with reduced ejection fraction Echo in 07/2021: 1. Technically difficult study with limited views. 2. Moderately reduced LF function with an EF estimated at 30-35% with hypokinesis of the mid to basal anterolateral, inferior, anterior, and basal inferoseptal arroyo with relative sparing of the apex. 3. Mildly increased LV wall thickness. 4. Left atria is moderately enlarged. 5. Mild tricuspid valve regurgitation. 6. Severe pulmonary hypertension with an estimated pulmonary arterial systolic pressure of 65 mmHg. Hypothyroidism Insulin dependent type 2 diabetes mellitus Mixed hyperlipidemia Nonsustained ventricular tachycardia Obstructive sleep apnea Intolerant to CPAP. Wears oxygen at nighttime. Pancreatitis Peripheral vascular disease Psoriasis Umbilical hernia without obstruction and without gangrene Vertigo Volume overload Surgical History Surgical History H/O abdominal surgery Revascularization to renal arteries and mesenteric artery H/O fasciotomy Right leg History of cataract extraction History of embolectomy Right leg History of stent insertion of renal artery History of tonsillectomy Hx of CABG Initially 5 vessel CABG and later on he had 1 that was redone now for those vessels are occluded he has collateral only the saphenous vein graft to the Left anterior descending is patent and otherwise his coronary arteries are occluded and all depend on the graft flow. Hx of cardiac catheterization Multiple times Presence of combination internal cardiac defibrillator (ICD) and pacemaker S/P carotid endarterectomy Family History Family History Mother Hypertension Family history of coronary artery disease Father Acute myocardial infarction Family history of coronary artery disease
--- NOTE | 2022-05-12 15:06 | PC.NURSE ---
Per EDInna Magallanes, stop saline infusion. Patient got about 500ml of fluids.
--- NOTE | 2022-05-12 16:38 | ADMGEN ---
This patient, Jaime Morrell, was admitted to [facility] Surg Room 327-01. Patient/family oriented to hospital policies and general routines including ID bracelet, bed and alarms, visiting hours, pain management, procedures, bathroom and other care routines, personal items, smoking policy, room service/diet, and visiting hours. Information on how to activate the Rapid Response Team has been discussed. Patient/Family are encouraged to report perceived risks to care and to ask questions if they do not understand what they are told or what they should do.
[2022-05-12 17:00] LABS: Glucose Point of Care 91 mg/dl (65-105)
[2022-05-12 17:40] LABS: Alanine Aminotransferase 9 U/L (6-50); Alkaline Phosphatase 99 U/L (38-126); Anion Gap 8 mmol/L (8-16); Aspartate Amino Transferase 23 U/L (17-59); Bilirubin,Total 0.6 mg/dL (0.2-1.3); Blood Urea Nitrogen 36 mg/dL (9-20); Calcium 7.7 mg/dL (8.4-10.2); Carbon Dioxide 24 mmol/L (22-30); Chloride 104 mmol/L (98-107); Estimated CRCL calculation 17 ml/min; Estimated Glomerular Filt Rate 18; Glucose 84 mg/dL (65-110); Potassium 3.6 mmol/L (3.4-5.0); Sodium 136 mmol/L (137-145)
[2022-05-12 18:17] LABS: Hemoglobin A1C 5.6 % (<5.7)
[2022-05-12 20:38] LABS: Basophils Percent Auto 0.6 % (0.2-1.2); Eosinophils Absolute Auto 0.2 K/mm3 (0-0.3); Eosinophils Percent Auto 2.9 % (0-4.4); Hematocrit 26.9 % (42.0-52.0); Hemoglobin 7.9 g/dL (14.0-18.0); Immature Granulocyte Absolute 0.03 K/mm3 (0.00-0.031); Immature Granulocyte Percent A 0.4 % (0-0.5); Immature Platelet Fraction Pct 4.2 % (0.9-11.2); Lymphocytes Absolute Auto 0.87 K/mm3 (0.9-3.2); Lymphocytes Percent Auto 12.4 % (18.3-44.2); Mean Corpuscular HGB Conc 29.4 g/dl (32-36); Mean Corpuscular Volume 98.9 fl (80-100); Mean Platelet Volume 10.5 fl (7.4-10.4); Monocytes Absolute Auto 0.9 K/mm3 (0.1-0.6); Monocytes Percent Auto 12.1 % (2.6-8.5); Neutrophils Percent Auto 71.6 % (45.5-73.1); Platelet Count Result 146 k/mm3 (150-375); Red Blood Count 2.72 M/mm3 (4.6-6.20); Red Cell Distribution Width 17.9 % (11.5-14.5)
[2022-05-12 21:17] LABS: Anisocytosis 1+ (NORMAL); Ovalocytes 1+ (NORMAL)
[2022-05-12] MEDS: CHOLECALCIFEROL 1,000 UNITS TABLET 5000 UNITS PO (21:29)
[2022-05-12] MEDS: HEPARIN SODIUM 5,000 UNITS/ML VIAL 5000 UNITS SUB-Q (21:30)
[2022-05-12 22:55] LABS: Glucose Point of Care 111 mg/dl (65-105)
[2022-05-13] VITALS (21 sets, daily range): BP systolic 108–157; BP diastolic 40–77; PULSE 66–81; RESP 16–18; TEMP 36–36.9; O2SAT 91–95
[2022-05-13] MEDS: ONDANSETRON INJ 4 MG/2 ML VIAL IV PUSH ×5 (00:55→20:26)
[2022-05-13 06:22] LABS: Transferrin 147 mg/dL (206-381)
[2022-05-13] MEDS: LEVOTHYROXINE SODIUM 50 MCG TABLET PO (06:34)
[2022-05-13 06:35] LABS: Iron 45 ug/dL (49-181)
[2022-05-13 06:44] LABS: Percent Iron Saturation 18 % (20-50)
[2022-05-13 07:26] LABS: Folic Acid 4.2 ng/mL (2.76->20)
[2022-05-13 07:39] LABS: Glucose Point of Care 83 mg/dl (65-105)
[2022-05-13] MEDS: HEPARIN SODIUM 5,000 UNITS/ML VIAL 5000 UNITS SUB-Q ×2 (08:22→20:19)
[2022-05-13] MEDS: CLOPIDOGREL BISULFATE 75 MG TABLET PO (08:22)
[2022-05-13] MEDS: ASPIRIN 81 MG ENTERIC TABLET PO (08:22)
[2022-05-13 09:20] LABS: Basophils Percent Auto 0.2 % (0.2-1.2); Eosinophils Absolute Auto 0.2 K/mm3 (0-0.3); Eosinophils Percent Auto 2.7 % (0-4.4); Hemoglobin 8.7 g/dL (14.0-18.0); Immature Granulocyte Absolute 0.03 K/mm3 (0.00-0.031); Immature Granulocyte Percent A 0.4 % (0-0.5); Lymphocytes Absolute Auto 0.67 K/mm3 (0.9-3.2); Lymphocytes Percent Auto 7.9 % (18.3-44.2); Mean Platelet Volume 11.1 fl (7.4-10.4); Monocytes Absolute Auto 0.9 K/mm3 (0.1-0.6); Neutrophils Absolute Auto 6.6 K/mm3 (1.3-6.7); Neutrophils Percent Auto 77.8 % (45.5-73.1); Platelet Count Result 149 k/mm3 (150-375); Red Cell Distribution Width 17.9 % (11.5-14.5); White Blood Count 8.5 K/mm3 (4.5-10.0)
[2022-05-13 09:49] LABS: Acanthocytes 1+ (NORMAL); Alanine Aminotransferase 11 U/L (6-50); Albumin Level 3.1 g/dL (3.5-5.1); Alkaline Phosphatase 95 U/L (38-126); Anion Gap 8 mmol/L (8-16); Aspartate Amino Transferase 25 U/L (17-59); Bilirubin,Total 0.4 mg/dL (0.2-1.3); Blood Urea Nitrogen 41 mg/dL (9-20); Calcium 8.1 mg/dL (8.4-10.2); Carbon Dioxide 29 mmol/L (22-30); Chloride 100 mmol/L (98-107); Estimated CRCL calculation 14 ml/min; Estimated Glomerular Filt Rate 15; Glucose 87 mg/dL (65-110); Magnesium 1.8 mg/dL (1.6-2.3); Ovalocytes 1+ (NORMAL); Platelet Clumps Present; Poikilocytosis 1+ (NORMAL); Sodium 137 mmol/L (137-145)
[2022-05-13 09:50] LABS: Anisocytosis 1+ (NORMAL)
--- NOTE | 2022-05-13 10:15 | P.PNIM_ITS ---
Progress Note: A&P Assessment and Plan (1) End stage renal disease: Code(s): N18.6 - End stage renal disease Status: Chronic Assessment and Plan: * Current BUN and creatinine is 41/3.90 * Patient is a dialysis patient and goes to dialysis Sunday * Dr. Ureña is consulted and will follow * Patient is more likely going to have dialysis tomorrow * Monitor breathing status * Trend labs * Daily weights (2) Diabetes: Code(s): E11.9 - Type 2 diabetes mellitus without complications Status: Chronic Assessment and Plan: * Current glucose is 87 * Trend glucose * Insulin sliding scale * Hypoglycemic protocol * Adjust therapy as indicated * Accu-Cheks AC and HS * Diabetic diet (3) Hypotension: Code(s): I95.9 - Hypotension, unspecified Status: Acute Assessment and Plan: * Patient was noted to be hypotensive upon arrival at 73/50 * Patient was given 1 L of fluids and is currently 103/42 * Current blood pressure is 131/64 * Wonder if he would benefit from some albumin * Hold Entresto, Imdur, carvedilol * Trend blood pressure * Adjust therapy as indicated (4) CHF (congestive heart failure): Qualifiers: Heart failure chronicity: chronic Heart failure type: unspecified Qualified Code(s): I50.9 - Heart failure, unspecified Code(s): I50.9 - Heart failure, unspecified Status: Acute Assessment and Plan: * 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 * Chest x-ray shows pulmonary edema along with a moderate size pleural effusion * Unable to get dialysis today * Will probably need to be dialyzed tomorrow * Nephrology on board * Daily weights * Hold Entresto and carvedilol due to hypotension * Consider thoracentesis (5) Pleural effusion: Code(s): J90 - Pleural effusion, not elsewhere classified Status: Acute Assessment and Plan: * Moderate left-sided pleural effusion * 600 mL was drained on 05/05/2022 * Repeat chest x-ray after dialysis tomorrow * Daily weights (6) Anemia: Code(s): D64.9 - Anemia, unspecified Status: Chronic Assessment and Plan: * H&H 8.7/30.0 * Baseline appears to be around 8-9 * 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 Time Spent With Patient Time with patient: Greater than 35 minutes Subjective Date/time seen: 05/13/22 10:15 Interval history: 05/13/22 1015 Patient seems to be doing ok. He stated that he was not able to eat, when he tried to eat, he stated to vomit. He was worried that he might need another tap. He also claimed that his stomach is a bit more firm and distended as well. He denies chest pain, shortness of breath, sweats, fevers, and chills. Will order a chest xray and abdominal pain, however, he is still awaiting dialysis. Dialysis would probably help if there is fluid issues. 05/12/22? 14:49 Patient is a 76-year-old male with a past medical history of hyperlipidemia, CAD, hypertension, COPD, CKD on dialysis, diabetes who presented to the ED today from dialysis for hypotension.? It was reported the patient went to dialysis today and was hooked up when he had a large diarrhea bowel movement and became very hypotensive.?
--- NOTE | 2022-05-13 10:15 | PM.IMPN ---
Progress Note: A&P Assessment and Plan (1) End stage renal disease: Code(s): N18.6 - End stage renal disease Status: Chronic Assessment and Plan: Current BUN and creatinine is 41/3.90 Patient is a dialysis patient and goes to dialysis Sunday Dr. Ureña is consulted and will follow Patient is more likely going to have dialysis tomorrow Monitor breathing status Trend labs Daily weights (2) Diabetes: Code(s): E11.9 - Type 2 diabetes mellitus without complications Status: Chronic Assessment and Plan: Current glucose is 87 Trend glucose Insulin sliding scale Hypoglycemic protocol Adjust therapy as indicated Accu-Cheks AC and HS Diabetic diet (3) Hypotension: Code(s): I95.9 - Hypotension, unspecified Status: Acute Assessment and Plan: Patient was noted to be hypotensive upon arrival at 73/50 Patient was given 1 L of fluids and is currently 103/42 Current blood pressure is 131/64 Wonder if he would benefit from some albumin Hold Entresto, Imdur, carvedilol Trend blood pressure Adjust therapy as indicated (4) CHF (congestive heart failure): Qualifiers: Heart failure chronicity: chronic Heart failure type: unspecified Qualified Code(s): I50.9 - Heart failure, unspecified Code(s): I50.9 - Heart failure, unspecified Status: Acute Assessment and Plan: 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 Chest x-ray shows pulmonary edema along with a moderate size pleural effusion Unable to get dialysis today Will probably need to be dialyzed tomorrow Nephrology on board Daily weights Hold Entresto and carvedilol due to hypotension Consider thoracentesis (5) Pleural effusion: Code(s): J90 - Pleural effusion, not elsewhere classified Status: Acute Assessment and Plan: Moderate left-sided pleural effusion 600 mL was drained on 05/05/2022 Repeat chest x-ray after dialysis tomorrow Daily weights (6) Anemia: Code(s): D64.9 - Anemia, unspecified Status: Chronic Assessment and Plan: H&H 8.7/30.0 Baseline appears to be around 8-9 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 Time Spent With Patient Time with patient: Greater than 35 minutes Subjective Date/time seen: 05/13/22 10:15 Interval history: 05/13/22 1015 Patient seems to be doing ok. He stated that he was not able to eat, when he tried to eat, he stated to vomit. He was worried that he might need another tap. He also claimed that his stomach is a bit more firm and distended as well. He denies chest pain, shortness of breath, sweats, fevers, and chills. Will order a chest xray and abdominal pain, however, he is still awaiting dialysis. Dialysis would probably help if there is fluid issues. 05/12/22? 14:49 Patient is a 76-year-old male with a past medical history of hyperlipidemia, CAD, hypertension, COPD, CKD on dialysis, diabetes who presented to the ED today from dialysis for hypotension.? It was reported the patient went to dialysis today and was hooked up when he had a large diarrhea bowel movement and became very hypotensive.? Patient stated that he went home and could not get up the 1st step and then collapsed after the 2nd step.? Blood pressure was reported to be 73/50.? Patient stated that he never lost consciousness however he has had diarrhea and very recent past.? Patient stated that he get about 45 minutes of dialysis before they abduct him due to the hypotension.? Patient was given 1 L of fluids in the ED his blood pressure came up to 103/42.? When his blood pressure did go down patient stated he was very weak and was unable to function.? He denied any chest
[2022-05-13 11:44] LABS: Glucose Point of Care 88 mg/dl (65-105)
--- NOTE | 2022-05-13 12:23 | PM.CNNEP ---
Assessment and Plan Assessment and plan (1) End stage renal disease: Code(s): N18.6 - End stage renal disease Status: Chronic Assessment and Plan: due progression of disease from HTN, DM, cardiorenal syndrome and TITA short HD today and then resume outpatient schedule to be M/W/F would like to pursue outpatient peritoneal dialysis eventually (2) Hypotension: Code(s): I95.9 - Hypotension, unspecified Status: Acute Assessment and Plan: somewhat of a longstanding issue at baseline worsened by recent diarrhea? noted to be hypotensive upon arrival at 73/50 s/p IVFs in ER and BP came up to 103/42 holding Entresto, Imdur, carvedilol follow trend of blood pressure/hemodyamics (3) Nausea, vomiting, and diarrhea: Code(s): R11.2 - Nausea with vomiting, unspecified; R19.7 - Diarrhea, unspecified Status: Acute Assessment and Plan: seems to be doing better at this time first had diarrhea which resolved followed by nausea/vomiting today due to gastroenterities? (bacterial versus viral) continue supportive therapy (4) Anemia: Code(s): D64.9 - Anemia, unspecified Status: Chronic Assessment and Plan: due to ESRD Epogen with HD follow trend of H/H (5) Diabetes: Code(s): E11.9 - Type 2 diabetes mellitus without complications Status: Chronic Assessment and Plan: follow accuchecks on SSI and Lantus Will continue to follow. History of Present Illness Reason for Consult Consult date: 05/13/22 Reason for consult: end stage renal disease Chief Complaint Chief complaint: Diarrhea/hypotension/hemodialysis patient History of Present Illness Narrative: The patient is a 76-year-old male with an extensive past medical history is outlined below who presented to [facility] room for diarrhea in association with hypotension. It should be noted the patient was just recently discharged from [facility] after his hospitalization for initiation of renal replacement therapy / dialysis in effort to stabilize his volume status given his resistance to diuretic therapy and worsening overall renal function. He tolerated dialysis reasonably well. He presented to his outpatient dialysis unit yesterday for his scheduled dialysis treatment. Apparently, while he was in the process of undergoing treatment, he had a large bowel movement which was really diarrhea with subsequent drop in his blood pressure. His dialysis treatment was aborted and the patient was rescheduled for dialysis tomorrow in the hopes that his hemodynamics and GI symptoms would be better. However, by the time he got home, he was too weak to even climb up the stairs to his home. EMS was called and he was taken to the ER for further evaluation. Workup and evaluation in the emergency room demonstrated the patient be quite hypotensive with a systolic BP in the 70s. He was immediately given 1 L of fluids which brought his blood pressure up to the 100 systolic range. In spite of his hypotension, he had no complaints with regard to chest pain, shortness of breath but he did report lightheadedness and dizziness. Routine blood test demonstrated labs consistent with his known history of end-stage renal disease. Given his complex medical history as well as a constellation of symptoms as noted above, he was admitted the hospital for further evaluation and therapy. Since his admission, his diarrhea appears to have resolved but now he is having issues and problems of nausea and vomiting. The patient was currently receiving dialysis at the time of my visit and other than the aforementioned nausea / vomiting, he appears to be tolerating the treatment reasonably well (he was seen on dialysis at 12 p.m. noon). Renal consultation was requested due to his end-stage renal disease. As already mentioned above, the patient was just recently hospitalized at [facility]
[2022-05-13] MEDS: EPOETIN ALFA-EPBX 10,000 UNITS/ML VIAL 10000 UNITS IV PUSH (14:00)
[2022-05-13 16:18] LABS: Glucose Point of Care 83 mg/dl (65-105)
[2022-05-13] MEDS: CHOLECALCIFEROL 1,000 UNITS TABLET 5000 UNITS PO (20:18)
[2022-05-13] MEDS: HYDROcodone/acetaminophen (*CRX) 5-325 MG TABLET 1 TAB PO (20:18)
[2022-05-13 21:43] LABS: Glucose Point of Care 88 mg/dl (65-105)
[2022-05-14] VITALS (8 sets, daily range): BP systolic 110–137; BP diastolic 44–52; PULSE 67–83; RESP 16–20; TEMP 35.9–36.6; O2SAT 92–96
[2022-05-14 06:04] LABS: Basophils Percent Auto 0.4 % (0.2-1.2); Eosinophils Percent Auto 0.1 % (0-4.4); Hematocrit 33.5 % (42.0-52.0); Hemoglobin 9.7 g/dL (14.0-18.0); Immature Granulocyte Absolute 0.03 K/mm3 (0.00-0.031); Immature Granulocyte Percent A 0.4 % (0-0.5); Lymphocytes Absolute Auto 0.53 K/mm3 (0.9-3.2); Lymphocytes Percent Auto 7.7 % (18.3-44.2); Mean Corpuscular Hemoglobin 28.9 pg (26-34); Mean Corpuscular Volume 99.7 fl (80-100); Mean Platelet Volume 11.1 fl (7.4-10.4); Monocytes Absolute Auto 0.8 K/mm3 (0.1-0.6); Monocytes Percent Auto 11.7 % (2.6-8.5); Neutrophils Absolute Auto 5.4 K/mm3 (1.3-6.7); Neutrophils Percent Auto 79.7 % (45.5-73.1); Platelet Count Result 140 k/mm3 (150-375); Red Blood Count 3.36 M/mm3 (4.6-6.20); White Blood Count 6.8 K/mm3 (4.5-10.0)
[2022-05-14] MEDS: LEVOTHYROXINE SODIUM 50 MCG TABLET PO (06:17)
[2022-05-14 06:42] LABS: Poikilocytosis 1+ (NORMAL)
[2022-05-14 06:43] LABS: Alanine Aminotransferase 8 U/L (6-50); Albumin Level 3.4 g/dL (3.5-5.1); Alkaline Phosphatase 95 U/L (38-126); Anion Gap 11 mmol/L (8-16); Aspartate Amino Transferase 20 U/L (17-59); Bilirubin,Total 0.6 mg/dL (0.2-1.3); Blood Urea Nitrogen 25 mg/dL (9-20); Calcium 8.2 mg/dL (8.4-10.2); Carbon Dioxide 25 mmol/L (22-30); Chloride 100 mmol/L (98-107); Crenated RBC 2+ (NORMAL); Estimated CRCL calculation 17 ml/min; Estimated Glomerular Filt Rate 18; Glucose 86 mg/dL (65-110); Magnesium 1.9 mg/dL (1.6-2.3); Potassium 4.3 mmol/L (3.4-5.0); Sodium 136 mmol/L (137-145)
[2022-05-14 06:44] LABS: Hyperchromasia 1+ (NORMAL)
[2022-05-14 07:31] LABS: Glucose Point of Care 83 mg/dl (65-105)
[2022-05-14] MEDS: ASPIRIN 81 MG ENTERIC TABLET PO (08:15)
[2022-05-14] MEDS: CLOPIDOGREL BISULFATE 75 MG TABLET PO (08:15)
[2022-05-14] MEDS: HEPARIN SODIUM 5,000 UNITS/ML VIAL 5000 UNITS SUB-Q ×2 (08:15→20:40)
[2022-05-14] MEDS: FERROUS SULFATE 324 MG TABLET PO ×2 (08:15→16:46)
--- NOTE | 2022-05-14 08:46 | P.PNIM_ITS ---
Progress Note: A&P Assessment and Plan (1) End stage renal disease: Code(s): N18.6 - End stage renal disease Status: Chronic Assessment and Plan: * Current BUN and creatinine is 25/3.30 * Patient is a dialysis patient and goes to dialysis Sunday * Dr. Ureña is consulted and will follow * Dialysis from 05/13/22 removed 2L * Monitor breathing status * Trend labs * Daily weights (2) Paralytic ileus: Code(s): K56.0 - Paralytic ileus Status: Acute Assessment and Plan: * Patient has been reporting nausea, vomiting, diarrhea * KUB indicates bowel obstruction/ileus * Could be secondary to fluid overload and ascites * Paracentesis ordered * Was able to tolerate food this am (3) Abdominal ascites: Code(s): R18.8 - Other ascites Status: Acute Assessment and Plan: * KUB indicates ascites on the x-ray * Abdomen is hard and firmer than yesterday * Paracentesis with diagnostics ordered * Trend volume status (4) Pleural effusion: Code(s): J90 - Pleural effusion, not elsewhere classified Status: Acute Assessment and Plan: * Moderate left-sided pleural effusion * 600 mL was drained on 05/05/2022 * Chest xray indicates no improvements of effusion * Thoracentesis ordered with diagnostics since it seems there has not been any done * Concern about being unilateral * Daily weights (5) Hypotension: Code(s): I95.9 - Hypotension, unspecified Status: Acute Assessment and Plan: * Patient was noted to be hypotensive upon arrival at 73/50 * Patient was given 1 L of fluids and is currently 103/42 * Current blood pressure is 110/50 * Wonder if he would benefit from some albumin * Hold Entresto, Imdur, carvedilol * Trend blood pressure * Adjust therapy as indicated (6) Diabetes: Code(s): E11.9 - Type 2 diabetes mellitus without complications Status: Chronic Assessment and Plan: * Current glucose is 86 * Trend glucose * Insulin sliding scale * Hypoglycemic protocol * Adjust therapy as indicated * Accu-Cheks AC and HS * Diabetic diet (7) CHF (congestive heart failure): Qualifiers: Heart failure chronicity: chronic Heart failure type: unspecified Qualified Code(s): I50.9 - Heart failure, unspecified Code(s): I50.9 - Heart failure, unspecified Status: Acute Assessment and Plan: * 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 * Chest x-ray shows pulmonary edema along with a moderate size pleural effusion * Unable to get dialysis the day of arrival * Dialysis performed on 05/13/22 * Nephrology on board * Daily weights * Hold Entresto and carvedilol due to hypotension * Consider thoracentesis (8) Anemia: Code(s): D64.9 - Anemia, unspecified Status: Chronic Assessment and Plan: * H&H 9.7/33.5 * Baseline appears to be around 8-9 * 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 Subjective Date/time seen: 05/14/22 08:46 Interval history: 05/14/22 0845 Patient stated that he seems okay today. He did state that his belly is more hard as well. He was able
--- NOTE | 2022-05-14 08:46 | PM.IMPN ---
Progress Note: A&P Assessment and Plan (1) End stage renal disease: Code(s): N18.6 - End stage renal disease Status: Chronic Assessment and Plan: Current BUN and creatinine is 25/3.30 Patient is a dialysis patient and goes to dialysis Sunday Dr. Ureña is consulted and will follow Dialysis from 05/13/22 removed 2L Monitor breathing status Trend labs Daily weights (2) Paralytic ileus: Code(s): K56.0 - Paralytic ileus Status: Acute Assessment and Plan: Patient has been reporting nausea, vomiting, diarrhea KUB indicates bowel obstruction/ileus Could be secondary to fluid overload and ascites Paracentesis ordered Was able to tolerate food this am (3) Abdominal ascites: Code(s): R18.8 - Other ascites Status: Acute Assessment and Plan: KUB indicates ascites on the x-ray Abdomen is hard and firmer than yesterday Paracentesis with diagnostics ordered Trend volume status (4) Pleural effusion: Code(s): J90 - Pleural effusion, not elsewhere classified Status: Acute Assessment and Plan: Moderate left-sided pleural effusion 600 mL was drained on 05/05/2022 Chest xray indicates no improvements of effusion Thoracentesis ordered with diagnostics since it seems there has not been any done Concern about being unilateral Daily weights (5) Hypotension: Code(s): I95.9 - Hypotension, unspecified Status: Acute Assessment and Plan: Patient was noted to be hypotensive upon arrival at 73/50 Patient was given 1 L of fluids and is currently 103/42 Current blood pressure is 110/50 Wonder if he would benefit from some albumin Hold Entresto, Imdur, carvedilol Trend blood pressure Adjust therapy as indicated (6) Diabetes: Code(s): E11.9 - Type 2 diabetes mellitus without complications Status: Chronic Assessment and Plan: Current glucose is 86 Trend glucose Insulin sliding scale Hypoglycemic protocol Adjust therapy as indicated Accu-Cheks AC and HS Diabetic diet (7) CHF (congestive heart failure): Qualifiers: Heart failure chronicity: chronic Heart failure type: unspecified Qualified Code(s): I50.9 - Heart failure, unspecified Code(s): I50.9 - Heart failure, unspecified Status: Acute Assessment and Plan: 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 Subjective Date/time seen: 05/14/22 08:46 Interval history: 05/14/22 0845 Patient stated that he seems okay today. He did state that his belly is more hard as well. He was able to eat this morning however he reports vomiting throughout dialysis yesterday. KUB did show a possible obstruction/ileus. Sounds more like an ileus due to the patient able to tolerate a tray this morning. Patient stated that he was hungry and that he did eat and everything stayed down. He denied any chest pain, fevers, sweats, chills. 05/13/22 1015 Patient seems to be doing ok. He stated that he was not able to eat, when he tried to eat, he stated to vomit. He was worried that he might need another tap. He also claimed that his stomach is a bit more firm and distended as well. He denies chest pain, shortness
[2022-05-14 09:16] LABS: Amylase 53 U/L (30-110)
[2022-05-14 09:17] LABS: Lactate Dehydrogenase 387 U/L (313-618)
[2022-05-14 09:20] LABS: INR 1.2; Prothrombin Time 14.7 Seconds (11.1-14.7)
[2022-05-14 11:19] LABS: Glucose Point of Care 138 mg/dl (65-105)
--- NOTE | 2022-05-14 12:11 | P.PNNP_ITS ---
Progress Note: A&P Assessment and Plan (1) End stage renal disease: Code(s): N18.6 - End stage renal disease Status: Chronic Assessment and Plan: * due progression of disease from HTN, DM, cardiorenal syndrome and TITA * HD yesterday and resume outpatient schedule to be M/W/F * would like to pursue outpatient peritoneal dialysis eventually (2) Hypotension: Code(s): I95.9 - Hypotension, unspecified Status: Acute Assessment and Plan: * somewhat of a longstanding issue at baseline * worsened by recent diarrhea? * noted to be hypotensive upon arrival at 73/50 * s/p IVFs in ER and BP came up to 103/42 * holding Entresto, Imdur, carvedilol * follow trend of blood pressure/hemodyamics (3) Nausea, vomiting, and diarrhea: Code(s): R11.2 - Nausea with vomiting, unspecified; R19.7 - Diarrhea, unspecified Status: Acute Assessment and Plan: * seems to be doing better at this time * first had diarrhea which resolved followed by nausea/vomiting yesterday * due to gastroenterities? (bacterial versus viral) * continue supportive therapy (4) Chronic combined systolic and diastolic heart failure: Code(s): I50.42 - Chronic combined systolic (congestive) and diastolic (congestive) heart failure Status: Chronic Assessment and Plan: * longstanding issue/problem * diuretic therapy alone not able to achieve euvolemia * continue fluid removal with dialysis as hemodynamics as tolerated (5) Volume overload: Code(s): E87.70 - Fluid overload, unspecified Status: Chronic Assessment and Plan: * s/p thoracentesis and paracentesis (05/05/22) on last hospitalization * does thisn * fluid removal with dialysis * follow volume status (6) Chronic anemia: Code(s): D64.9 - Anemia, unspecified Status: Chronic Assessment and Plan: * due to ESRD * Epogen with HD * follow trend of H/H (7) Diabetes: Code(s): E11.9 - Type 2 diabetes mellitus without complications Status: Chronic Assessment and Plan: * follow accuchecks * on SSI and Lantus Will continue to follow. Subjective Date/time seen: 05/14/22 12:11 Tolerated dialysis treatment yesterday but had nausea/vomiting intermittently during treatment; concerned that he maybe developing fluid in his abdomen again which is confirmed by KUB but also mentions possible ileus/obstruction; however, he was able to eat his meals today without any issues. Exam Narrative: General: WD/WN male in NAD Heart: normal S1 and S2; no rub Lungs: decreased at bases Abdomen: soft, nontender, some distension, positive bowel sounds Extremities: no cyanosis or clubbing; trace - 1+ edema Skin: warm and dry Objective Data Vital Signs Vital Signs: Vital Signs Temp Pulse Resp BP Pulse Ox 05/14/22 12:00 76 05/14/22 11:52 36.0 C L 71 16 112/48 L 92 05/14/22 08:00 67 05/14/22 07:50 36.1 C L 74 18 110/50 L 93 05/14/22 04:00 36.1 C L 69 16 126/45 L 96 05/14/22 04:00 76 05/14/22 00:00 83 05/13/22 23:51 36.4 C 78 16 133/44 L 94 05/13/22 20:10 81 05/13/22 20:00 36.2 C L 81 16 132/42 L 91 Intake/Output Intake/Output
--- NOTE | 2022-05-14 12:11 | PM.PNNEP ---
Progress Note: A&P Assessment and Plan (1) End stage renal disease: Code(s): N18.6 - End stage renal disease Status: Chronic Assessment and Plan: due progression of disease from HTN, DM, cardiorenal syndrome and TITA HD yesterday and resume outpatient schedule to be M/W/F would like to pursue outpatient peritoneal dialysis eventually (2) Hypotension: Code(s): I95.9 - Hypotension, unspecified Status: Acute Assessment and Plan: somewhat of a longstanding issue at baseline worsened by recent diarrhea? noted to be hypotensive upon arrival at 73/50 s/p IVFs in ER and BP came up to 103/42 holding Entresto, Imdur, carvedilol follow trend of blood pressure/hemodyamics (3) Nausea, vomiting, and diarrhea: Code(s): R11.2 - Nausea with vomiting, unspecified; R19.7 - Diarrhea, unspecified Status: Acute Assessment and Plan: seems to be doing better at this time first had diarrhea which resolved followed by nausea/vomiting yesterday due to gastroenterities? (bacterial versus viral) continue supportive therapy (4) Chronic combined systolic and diastolic heart failure: Code(s): I50.42 - Chronic combined systolic (congestive) and diastolic (congestive) heart failure Status: Chronic Assessment and Plan: longstanding issue/problem diuretic therapy alone not able to achieve euvolemia continue fluid removal with dialysis as hemodynamics as tolerated (5) Volume overload: Code(s): E87.70 - Fluid overload, unspecified Status: Chronic Assessment and Plan: s/p thoracentesis and paracentesis (05/05/22) on last hospitalization does thisn fluid removal with dialysis follow volume status (6) Chronic anemia: Code(s): D64.9 - Anemia, unspecified Status: Chronic Assessment and Plan: due to ESRD Epogen with HD follow trend of H/H (7) Diabetes: Code(s): E11.9 - Type 2 diabetes mellitus without complications Status: Chronic Assessment and Plan: follow accuchecks on SSI and Lantus Will continue to follow. Subjective Date/time seen: 05/14/22 12:11 Tolerated dialysis treatment yesterday but had nausea/vomiting intermittently during treatment; concerned that he maybe developing fluid in his abdomen again which is confirmed by KUB but also mentions possible ileus/obstruction; however, he was able to eat his meals today without any issues. Exam Narrative: General: WD/WN male in NAD Heart: normal S1 and S2; no rub Lungs: decreased at bases Abdomen: soft, nontender, some distension, positive bowel sounds Extremities: no cyanosis or clubbing; trace - 1+ edema Skin: warm and dry Objective Data Vital Signs Vital Signs: Vital Signs Temp Pulse Resp BP Pulse Ox 05/14/22 12:00 76 05/14/22 11:52 36.0 C L 71 16 112/48 L 92 05/14/22 08:00 67 05/14/22 07:50 36.1 C L 74 18 110/50 L 93 05/14/22 04:00 36.1 C L 69 16 126/45 L 96 05/14/22 04:00 76 05/14/22 00:00 83 05/13/22 23:51 36.4 C 78 16 133/44 L 94 05/13/22 20:10 81 05/13/22 20:00 36.2 C L 81 16 132/42 L 91 Intake/Output Intake/Output: Intake & Output 05/11/22 05/12/22 05/13/22 05/14/22 23:59 23:59 23:59 23:59 Intake Total 740 1120 1100 Output Total 2450 Balance 740 -1330 1100 Meds/Results Medications: Active Medications Generic Name Dose Route Start Last Admin Trade Name Freq PRN Reason Stop Dose Admin Acetaminophen 650 mg 05/12/22 15:28 Acetaminophen 325 Mg Tablet PO Q4H PRN Mild Pain (1-3) or Fever Hydrocodone Bitart/Acetaminophen 1 tab 05/12/22 15:28 05/13/22 20:18 Hydrocodone/Acetaminophen (*Crx) 5-325 Mg Tablet PO 1 tab Q4H PRN Administration Moderate Pain (4-10) Aspirin 81 mg 05/13/22 09:00 05/14/22 08:15 Aspirin 81 Mg Enteric Tablet PO 81 mg DAILY JEFF Administration Clop
[2022-05-14 16:38] LABS: Glucose Point of Care 132 mg/dl (65-105)
[2022-05-14] MEDS: ONDANSETRON INJ 4 MG/2 ML VIAL IV PUSH (20:38)
[2022-05-14] MEDS: CHOLECALCIFEROL 1,000 UNITS TABLET 5000 UNITS PO (20:39)
[2022-05-14 22:55] LABS: Glucose Point of Care 141 mg/dl (65-105)
[2022-05-15] VITALS (24 sets, daily range): BP systolic 98–136; BP diastolic 35–80; PULSE 62–97; RESP 16–19; TEMP 36–37.1; O2SAT 90–100
[2022-05-15] MEDS: LEVOTHYROXINE SODIUM 50 MCG TABLET PO (06:21)
[2022-05-15 07:22] LABS: Basophils Percent Auto 0.1 % (0.2-1.2); Eosinophils Percent Auto 0.1 % (0-4.4); Hematocrit 31.3 % (42.0-52.0); Hemoglobin 9.3 g/dL (14.0-18.0); Immature Granulocyte Absolute 0.02 K/mm3 (0.00-0.031); Immature Granulocyte Percent A 0.3 % (0-0.5); Lymphocytes Absolute Auto 0.45 K/mm3 (0.9-3.2); Lymphocytes Percent Auto 6.3 % (18.3-44.2); Mean Corpuscular HGB Conc 29.7 g/dl (32-36); Mean Corpuscular Hemoglobin 28.9 pg (26-34); Mean Corpuscular Volume 97.2 fl (80-100); Mean Platelet Volume 11.2 fl (7.4-10.4); Monocytes Absolute Auto 0.9 K/mm3 (0.1-0.6); Monocytes Percent Auto 12.9 % (2.6-8.5); Neutrophils Absolute Auto 5.7 K/mm3 (1.3-6.7); Neutrophils Percent Auto 80.3 % (45.5-73.1); Platelet Count Result 139 k/mm3 (150-375); Red Blood Count 3.22 M/mm3 (4.6-6.20); Red Cell Distribution Width 17.5 % (11.5-14.5); White Blood Count 7.2 K/mm3 (4.5-10.0)
[2022-05-15 07:34] LABS: Alanine Aminotransferase 9 U/L (6-50); Albumin Level 3.1 g/dL (3.5-5.1); Alkaline Phosphatase 88 U/L (38-126); Anion Gap 8 mmol/L (8-16); Aspartate Amino Transferase 18 U/L (17-59); Bilirubin,Total 0.4 mg/dL (0.2-1.3); Blood Urea Nitrogen 35 mg/dL (9-20); Calcium 8.3 mg/dL (8.4-10.2); Carbon Dioxide 29 mmol/L (22-30); Chloride 98 mmol/L (98-107); Estimated CRCL calculation 13 ml/min; Estimated Glomerular Filt Rate 14; Glucose 122 mg/dL (65-110); Magnesium 1.9 mg/dL (1.6-2.3); Potassium 4.1 mmol/L (3.4-5.0); Sodium 135 mmol/L (137-145)
[2022-05-15 07:49] LABS: Glucose Point of Care 114 mg/dl (65-105)
[2022-05-15 08:25] LABS: Poikilocytosis 1+ (NORMAL)
--- NOTE | 2022-05-15 09:15 | P.PNIM_ITS ---
Progress Note: A&P Assessment and Plan (1) End stage renal disease: Code(s): N18.6 - End stage renal disease Status: Chronic Assessment and Plan: * Current BUN and creatinine is 35/4.30 * Patient is a dialysis patient and goes to dialysis Sunday * Dr. Ureña is consulted and will follow * Dialysis from 05/13/22 removed 2L * Monitor breathing status * Trend labs * Daily weights (2) Paralytic ileus: Code(s): K56.0 - Paralytic ileus Status: Acute Assessment and Plan: * Patient has been reporting nausea, vomiting, diarrhea * KUB indicates bowel obstruction/ileus * Could be secondary to fluid overload and ascites * Paracentesis ordered * Was not able to tolerate food in the evening * Abd ct ordered (3) Abdominal ascites: Code(s): R18.8 - Other ascites Status: Acute Assessment and Plan: * KUB indicates ascites on the x-ray * Abdomen is hard and firmer than yesterday * Paracentesis with diagnostics ordered * Trend volume status (4) Pleural effusion: Code(s): J90 - Pleural effusion, not elsewhere classified Status: Acute Assessment and Plan: * Moderate left-sided pleural effusion * 600 mL was drained on 05/05/2022 * Chest xray indicates no improvements of effusion * Thoracentesis ordered with diagnostics since it seems there has not been any done * Concern about being unilateral * Daily weights (5) Hypotension: Code(s): I95.9 - Hypotension, unspecified Status: Acute Assessment and Plan: * Patient was noted to be hypotensive upon arrival at 73/50 * Patient was given 1 L of fluids and is currently 103/42 * Current blood pressure is 113/52 * Wonder if he would benefit from some albumin * Hold Entresto, Imdur, carvedilol * Trend blood pressure * Adjust therapy as indicated (6) Diabetes: Code(s): E11.9 - Type 2 diabetes mellitus without complications Status: Chronic Assessment and Plan: * Current glucose is 122 * Trend glucose * Insulin sliding scale * Hypoglycemic protocol * Adjust therapy as indicated * Accu-Cheks AC and HS * Diabetic diet (7) CHF (congestive heart failure): Qualifiers: Heart failure chronicity: chronic Heart failure type: unspecified Qualified Code(s): I50.9 - Heart failure, unspecified Code(s): I50.9 - Heart failure, unspecified Status: Acute Assessment and Plan: * 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 * Chest x-ray shows pulmonary edema along with a moderate size pleural effusion * Unable to get dialysis the day of arrival * Dialysis performed on 05/13/22 * Nephrology on board * Daily weights * Hold Entresto and carvedilol due to hypotension * Consider thoracentesis (8) Anemia: Code(s): D64.9 - Anemia, unspecified Status: Chronic Assessment and Plan: * H&H 9.3/31.3 * Baseline appears to be around 8-9 * 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 Time Spent With Patient Time with patient: Greater than 35 minutes Subjective Date/time seen: 05/15/22914 Interval history: 05/15/22914
--- NOTE | 2022-05-15 09:15 | PM.IMPN ---
Progress Note: A&P Assessment and Plan (1) End stage renal disease: Code(s): N18.6 - End stage renal disease Status: Chronic Assessment and Plan: Current BUN and creatinine is 35/4.30 Patient is a dialysis patient and goes to dialysis Sunday Dr. Ureña is consulted and will follow Dialysis from 05/13/22 removed 2L Monitor breathing status Trend labs Daily weights (2) Paralytic ileus: Code(s): K56.0 - Paralytic ileus Status: Acute Assessment and Plan: Patient has been reporting nausea, vomiting, diarrhea KUB indicates bowel obstruction/ileus Could be secondary to fluid overload and ascites Paracentesis ordered Was not able to tolerate food in the evening Abd ct ordered (3) Abdominal ascites: Code(s): R18.8 - Other ascites Status: Acute Assessment and Plan: KUB indicates ascites on the x-ray Abdomen is hard and firmer than yesterday Paracentesis with diagnostics ordered Trend volume status (4) Pleural effusion: Code(s): J90 - Pleural effusion, not elsewhere classified Status: Acute Assessment and Plan: Moderate left-sided pleural effusion 600 mL was drained on 05/05/2022 Chest xray indicates no improvements of effusion Thoracentesis ordered with diagnostics since it seems there has not been any done Concern about being unilateral Daily weights (5) Hypotension: Code(s): I95.9 - Hypotension, unspecified Status: Acute Assessment and Plan: Patient was noted to be hypotensive upon arrival at 73/50 Patient was given 1 L of fluids and is currently 103/42 Current blood pressure is 113/52 Wonder if he would benefit from some albumin Hold Entresto, Imdur, carvedilol Trend blood pressure Adjust therapy as indicated (6) Diabetes: Code(s): E11.9 - Type 2 diabetes mellitus without complications Status: Chronic Assessment and Plan: Current glucose is 122 Trend glucose Insulin sliding scale Hypoglycemic protocol Adjust therapy as indicated Accu-Cheks AC and HS Diabetic diet (7) CHF (congestive heart failure): Qualifiers: Heart failure chronicity: chronic Heart failure type: unspecified Qualified Code(s): I50.9 - Heart failure, unspecified Code(s): I50.9 - Heart failure, unspecified Status: Acute Assessment and Plan: 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 Time Spent With Patient Time with patient: Greater than 35 minutes Subjective Date/time seen: 05/15/22914 Interval history: 05/15/22914 patient was in dialysis when he went to see him. Patient stated that he is doing okay he is just very tired. He also stated that he has been vomiting and that when he eats it comes right back up. He denies any chest pain or shortness of breath. He does seem to still be a little hypotensive. will get a CT scan of his abdomen to make sure he does not really have a obstruction however he does have bowel sounds in all 4 quadrants. Wonder if it is due to the ascites. 05/14/22844 Patient stated that he seems okay today. He did state that his belly is more hard as well. He was able to eat this morning however he reports
[2022-05-15] MEDS: EPOETIN ALFA-EPBX 10,000 UNITS/ML VIAL 10000 UNITS IV PUSH (09:27)
--- NOTE | 2022-05-15 11:37 | PCOTNOTE ---
Attempted OT evaluation. Pt in dialysis at this time. Will continue to attempt.
--- NOTE | 2022-05-15 11:38 | PCPTNOTE ---
attempted PT evaluation 11:30- pt was in dialysis and unable to do eval;
[2022-05-15 12:41] LABS: Glucose Point of Care 80 mg/dl (65-105)
[2022-05-15 16:11] LABS: Glucose Point of Care 104 mg/dl (65-105)
[2022-05-15 16:32] LABS: Lactic Acid Reflex 1.1 mmol/L (0.7-2.0)
[2022-05-15] MEDS: FERROUS SULFATE 324 MG TABLET PO (16:57)
[2022-05-15] MEDS: CHOLECALCIFEROL 1,000 UNITS TABLET 5000 UNITS PO (20:57)
[2022-05-15] MEDS: HEPARIN SODIUM 5,000 UNITS/ML VIAL 5000 UNITS SUB-Q (20:59)
[2022-05-16] VITALS (8 sets, daily range): BP systolic 109–122; BP diastolic 40–60; PULSE 56–75; RESP 16–18; TEMP 36.1–36.9; O2SAT 92–100
[2022-05-16] MEDS: MIDODRINE HCL 10 MG TABLET PO (00:53)
[2022-05-16 07:35] LABS: Basophils Percent Auto 0.3 % (0.2-1.2); Eosinophils Absolute Auto 0.2 K/mm3 (0-0.3); Eosinophils Percent Auto 2.5 % (0-4.4); Hematocrit 29.9 % (42.0-52.0); Hemoglobin 8.6 g/dL (14.0-18.0); Immature Granulocyte Absolute 0.02 K/mm3 (0.00-0.031); Immature Granulocyte Percent A 0.3 % (0-0.5); Lymphocytes Absolute Auto 0.86 K/mm3 (0.9-3.2); Lymphocytes Percent Auto 11.4 % (18.3-44.2); Mean Corpuscular HGB Conc 28.8 g/dl (32-36); Mean Corpuscular Hemoglobin 28.7 pg (26-34); Mean Corpuscular Volume 99.7 fl (80-100); Mean Platelet Volume 10.7 fl (7.4-10.4); Monocytes Absolute Auto 1.1 K/mm3 (0.1-0.6); Monocytes Percent Auto 14.1 % (2.6-8.5); Neutrophils Absolute Auto 5.4 K/mm3 (1.3-6.7); Neutrophils Percent Auto 71.4 % (45.5-73.1); Platelet Count Result 125 k/mm3 (150-375); Red Cell Distribution Width 17.6 % (11.5-14.5); White Blood Count 7.6 K/mm3 (4.5-10.0)
[2022-05-16 07:45] LABS: Glucose Point of Care 89 mg/dl (65-105)
[2022-05-16 07:48] LABS: Alanine Aminotransferase 8 U/L (6-50); Albumin Level 2.9 g/dL (3.5-5.1); Alkaline Phosphatase 80 U/L (38-126); Anion Gap 5 mmol/L (8-16); Aspartate Amino Transferase 18 U/L (17-59); Bilirubin,Total 0.4 mg/dL (0.2-1.3); Blood Urea Nitrogen 22 mg/dL (9-20); Calcium 7.7 mg/dL (8.4-10.2); Carbon Dioxide 33 mmol/L (22-30); Chloride 98 mmol/L (98-107); Estimated CRCL calculation 18 ml/min; Estimated Glomerular Filt Rate 20; Glucose 88 mg/dL (65-110); Magnesium 1.8 mg/dL (1.6-2.3); Potassium 3.5 mmol/L (3.4-5.0); Sodium 136 mmol/L (137-145)
--- NOTE | 2022-05-16 08:00 | P.PNIM_ITS ---
Progress Note: A&P Assessment and Plan (1) End stage renal disease: Code(s): N18.6 - End stage renal disease Status: Chronic Assessment and Plan: * Current BUN and creatinine is 22/3.10 * Patient is a dialysis patient and goes to dialysis Sunday * Dr. Ureña is consulted and will follow * Dialysis from 05/15/22 removed 2L * Monitor breathing status * Trend labs * Daily weights (2) Small bowel obstruction: Code(s): K56.609 - Unspecified intestinal obstruction, unspecified as to partial versus complete obstruction Status: Acute Assessment and Plan: * Patient has been reporting nausea, vomiting, diarrhea * KUB indicates bowel obstruction/ileus * Paracentesis ordered * NG tube placed, draining a thick clear fluid * Abd ct showed bowel obstruction in the right lower quadrant, thickened arroyo * GS consulted * NPO diet * Light fluids for hydration (3) Abdominal ascites: Code(s): R18.8 - Other ascites Status: Acute Assessment and Plan: * KUB indicates ascites on the x-ray * CT also indicates moderate amount of ascites * Abdomen remains firm * Paracentesis with diagnostics ordered * Trend volume status * Hold heparin in preparation of procedure being performed today (4) Pleural effusion: Code(s): J90 - Pleural effusion, not elsewhere classified Status: Acute Assessment and Plan: * Moderate left-sided pleural effusion * 600 mL was drained on 05/05/2022 * Chest xray indicates no improvements of effusion * Thoracentesis ordered with diagnostics since it seems there has not been any done * Concern about being unilateral * Daily weights (5) Hypotension: Code(s): I95.9 - Hypotension, unspecified Status: Acute Assessment and Plan: * Patient was noted to be hypotensive upon arrival at 73/50 * Current blood pressure is 117/53 * Seems that he received albumin and midodrine overnight * Hold Entresto, Imdur, carvedilol * Trend blood pressure * Adjust therapy as indicated (6) Diabetes: Code(s): E11.9 - Type 2 diabetes mellitus without complications Status: Chronic Assessment and Plan: * Current glucose is 88 * Trend glucose * Insulin sliding scale * Hypoglycemic protocol * Adjust therapy as indicated * Accu-Cheks AC and HS * NPO diet for now (7) CHF (congestive heart failure): Qualifiers: Heart failure chronicity: chronic Heart failure type: unspecified Qualified Code(s): I50.9 - Heart failure, unspecified Code(s): I50.9 - Heart failure, unspecified Status: Acute Assessment and Plan: * 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
--- NOTE | 2022-05-16 08:00 | PM.IMPN ---
Progress Note: A&P Assessment and Plan (1) End stage renal disease: Code(s): N18.6 - End stage renal disease Status: Chronic Assessment and Plan: Current BUN and creatinine is 22/3.10 Patient is a dialysis patient and goes to dialysis Sunday Dr. Ureña is consulted and will follow Dialysis from 05/15/22 removed 2L Monitor breathing status Trend labs Daily weights (2) Small bowel obstruction: Code(s): K56.609 - Unspecified intestinal obstruction, unspecified as to partial versus complete obstruction Status: Acute Assessment and Plan: Patient has been reporting nausea, vomiting, diarrhea KUB indicates bowel obstruction/ileus Paracentesis ordered NG tube placed, draining a thick clear fluid Abd ct showed bowel obstruction in the right lower quadrant, thickened arroyo GS consulted NPO diet Light fluids for hydration (3) Abdominal ascites: Code(s): R18.8 - Other ascites Status: Acute Assessment and Plan: KUB indicates ascites on the x-ray CT also indicates moderate amount of ascites Abdomen remains firm Paracentesis with diagnostics ordered Trend volume status Hold heparin in preparation of procedure being performed today (4) Pleural effusion: Code(s): J90 - Pleural effusion, not elsewhere classified Status: Acute Assessment and Plan: Moderate left-sided pleural effusion 600 mL was drained on 05/05/2022 Chest xray indicates no improvements of effusion Thoracentesis ordered with diagnostics since it seems there has not been any done Concern about being unilateral Daily weights (5) Hypotension: Code(s): I95.9 - Hypotension, unspecified Status: Acute Assessment and Plan: Patient was noted to be hypotensive upon arrival at 73/50 Current blood pressure is 117/53 Seems that he received albumin and midodrine overnight Hold Entresto, Imdur, carvedilol Trend blood pressure Adjust therapy as indicated (6) Diabetes: Code(s): E11.9 - Type 2 diabetes mellitus without complications Status: Chronic Assessment and Plan: Current glucose is 88 Trend glucose Insulin sliding scale Hypoglycemic protocol Adjust therapy as indicated Accu-Cheks AC and HS NPO diet for now (7) CHF (congestive heart failure): Qualifiers: Heart failure chronicity: chronic Heart failure type: unspecified Qualified Code(s): I50.9 - Heart failure, unspecified Code(s): I50.9 - Heart failure, unspecified Status: Acute Assessment and Plan: 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 (9) Cirrhosis: Code(s): K74.60 - Unspecified cirrhosis of liver Status: Acute Assessment and Plan: Trend AST/ALT Ascites present Paracentesis ordered CT showed cirrhosis Time Spent With Patient Time with patient: Greater than 35 minutes Subjective Date/time seen: 05/16/22 08:00 Interval history: 05/16/22 0800 Patient was lying in bed. Patient had NG tube. He stated that he was able to eat some yesterday but not a whole lot and if he ate too much he would vomit. CT of the abdomen and pelvis was performed
[2022-05-16 09:04] LABS: INR 1.2; Prothrombin Time 14.6 Seconds (11.1-14.7)
[2022-05-16 11:43] LABS: Glucose Point of Care 72 mg/dl (65-105)
--- NOTE | 2022-05-16 11:48 | PC.NURSE ---
Yaya Thomas [employer] notified of glucose 72 and npo
[2022-05-16] MEDS: DEXTROSE 50% 25 GM/50 ML SYRINGE IV PUSH (11:52)
[2022-05-16] MEDS: DEXTROSE 5%/LACTATED RINGERS 1,000 ML 40 ML IV CONT (12:35)
--- NOTE | 2022-05-16 13:44 | PM.PNNEP ---
Progress Note: A&P Assessment and Plan (1) End stage renal disease: Code(s): N18.6 - End stage renal disease Status: Chronic Assessment and Plan: due progression of disease from HTN, DM, cardiorenal syndrome and TITA he had hemodialysis yesterday in will order 1 for tomorrow. would like to pursue outpatient peritoneal dialysis eventually (2) Hypotension: Code(s): I95.9 - Hypotension, unspecified Status: Acute Assessment and Plan: somewhat of a longstanding issue at baseline worsened by recent diarrhea? noted to be hypotensive On admission. Blood pressure better for the last couple of days. (3) Nausea, vomiting, and diarrhea: Code(s): R11.2 - Nausea with vomiting, unspecified; R19.7 - Diarrhea, unspecified Status: Acute Assessment and Plan: still requiring NG tube drainage. CT scan shows possible distal obstruction continue supportive therapy (4) Anemia: Code(s): D64.9 - Anemia, unspecified Status: Chronic Assessment and Plan: due to ESRD Epogen with HD He may be losing a little blood from his GI process. (5) Diabetes: Code(s): E11.9 - Type 2 diabetes mellitus without complications Status: Chronic Assessment and Plan: On Accu-Cheks and sliding scale insulin per hospitalists. \ (6) Chronic anemia: Code(s): D64.9 - Anemia, unspecified Status: Chronic (7) Volume overload: Code(s): E87.70 - Fluid overload, unspecified Status: Chronic (8) Chronic combined systolic and diastolic heart failure: Code(s): I50.42 - Chronic combined systolic (congestive) and diastolic (congestive) heart failure Status: Chronic Subjective Date/time seen: 05/16/22 13:44 Interval history: Jaime is feeling about the same today. He has an NG tube in. He had dialysis yesterday and it went well. Review of Systems Cardiovascular: Cardiovascular: Reports no additional cardiovascular complaints Respiratory: Respiratory: Reports no additional respiratory complaints Gastrointestinal: Gastrointestinal: Reports no additional gastrointestinal complaints Genitourinary: Genitourinary: Reports no additional male genitourinary complaints Exam Narrative: General: WD/WN male in NAD Heart: normal S1 and S2; no rub or gallop Lungs: decreased at bases Abdomen: soft, nontender, some distension, positive bowel sounds Extremities: no cyanosis or clubbing; trace - 1+ edema Skin: No rash Objective Data Vital Signs Vital Signs: Vital Signs - 24 hr 05/15/22 15:50 05/15/22 16:00 05/15/22 20:00 Temperature 37.1 C 36.4 C Pulse Rate 85 72 83 Respiratory Rate 19 16 Blood Pressure 114/54 L 136/49 L Pulse Oximetry 99 96 Oxygen Delivery Oxygen Flow Rate Fraction of Inspired Oxygen 05/15/22 23:38 05/15/22 20:05 05/15/22 20:05 Temperature 36.3 C L Pulse Rate 87 70 87 Respiratory Rate 16 16 Blood Pressure 98/35 L Pulse Oximetry 94 94 Oxygen Delivery Nasal Cannula Oxygen Flow Rate 2 Fraction of Inspired Oxygen 2 05/16/22 00:00 05/16/22 04:00 05/16/22 04:00 Temperature 36.3 C L Pulse Rate 75 75 72 Respiratory Rate 16 Blood Pressure 122/60 Pulse Oximetry 92 Oxygen Delivery Oxygen Flow Rate Fraction of Inspired Oxygen 05/16/22 08:00 05/16/22 08:00 05/16/22 08:21 Temperature 36.6 C Pulse Rate 65 56 L Respiratory Rate 16 Blood Pressure 117/53 L Pulse Oximetry 100 100 Oxygen Delivery Nasal Cannula Nasal Cannula Oxygen Flow Rate 2 2 Fraction of Inspired Oxygen 05/16/22 08:00 05/16/22 11:42 05/16/22 12:00 Temperature 36.1 C L Pulse Rate 58 L 67 70 Respiratory Rate 16 Blood Pressure 113/53 L Pulse Oximetry 100 Oxygen Delivery Oxygen Flow Rate Fraction of Inspired Oxygen Intake/Output Intake/Output: Intake & Output 05/13/22 05/14/22 05/15/22 05/16/22 23
--- NOTE | 2022-05-16 14:01 | PM.CNGS ---
Assessment and Plan Assessment and plan (1) Small bowel obstruction: Code(s): K56.609 - Unspecified intestinal obstruction, unspecified as to partial versus complete obstruction Status: Acute Assessment and Plan: Patient presented initially for hypotension and has developed nausea and vomiting. CT suggests evidence of a small bowel obstruction. We would recommend to continue treating him with conservative measures, including NG tube decompression, bowel rest, and IV fluids. He is not currently having any abdominal pain and is actually fairly comfortable. He is having some bowel function with a bowel movement early this morning. KUB report suggests his NG tube is in good position. Will repeat a KUB tomorrow morning. Continue to monitor with serial abdominal exams and imaging. Hopefully, this will resolve with conservative management, but there is a chance that surgical exploration could be needed if he does not improve with current treatment. I discussed with the patient that he is a high risk surgical candidate given his previous abdominal surgeries, multiple co-morbidities, and antiplatelet therapy. The patient understands the plan and all questions were answered. (2) End stage renal disease: Code(s): N18.6 - End stage renal disease Status: Chronic Assessment and Plan: ESRD on hemodialysis. Nephrology following and planned to have dialysis tomorrow. (3) Cirrhosis: Code(s): K74.60 - Unspecified cirrhosis of liver Status: Acute Assessment and Plan: Liver cirrhosis and portal hypertension evident on CT. Increases risks for surgery. (4) Hypotension: Code(s): I95.9 - Hypotension, unspecified Status: Acute Assessment and Plan: Improved with IV fluids and holding antihypertensives. Most recent BP 113/53. Appears he has a history of hypotension. Continue management per Hospitalist. (5) Abdominal ascites: Code(s): R18.8 - Other ascites Status: Acute Assessment and Plan: Likely related to his liver disease. Hospitalist has ordered a paracentesis which is currently on hold until Sunday since he is on Plavix (which has now been held since 05/14/22). (6) CHF (congestive heart failure): Code(s): I50.9 - Heart failure, unspecified Status: Acute Assessment and Plan: Most recent echocardiogram in our chart is November of 2021 that showed an EF of 30-35%. Increases risks of surgery. 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 Status: Acute (8) Anemia: Code(s): D64.9 - Anemia, unspecified Status: Chronic (9) Diabetes: Code(s): E11.9 - Type 2 diabetes mellitus without complications Status: Chronic (10) Pleural effusion: Code(s): J90 - Pleural effusion, not elsewhere classified Status: Acute (11) Peripheral vascular disease, unspecified: Code(s): I73.9 - Peripheral vascular disease, unspecified Status: Acute (12) Antiplatelet or antithrombotic long-term use: Code(s): Z79.02 - keno terminal operator (current) use of antithrombotics/antiplatelets Status: Acute Assessment and Plan: Plavix on hold for paracentesis and possible thoracentesis. Plan I have discussed the patient's case and plan of care with Dr. Aviles. Thank you for allowing us to see the patient in consultation and we will continue to follow along with you. History of Present Illness Consult details Consult date: 05/16/22 Reason for consult: other (Small bowel obstruction) Requesting physician: Marshall Thomas APN-C Narrative: This is a 76-year-old male with a history of end-stage renal disease on hemodialysis, liver cirrhosis, coronary artery disease s/p CABG x 2 , heart failure with an EF of 30-35%, COPD, peripheral vascular disease, and multiple other medical problems who was at dialysis and had a
[2022-05-16 14:16] LABS: Glucose Point of Care 89 mg/dl (65-105)
[2022-05-16 16:20] LABS: Glucose Point of Care 93 mg/dl (65-105)
[2022-05-16 19:41] LABS: Glucose Point of Care 83 mg/dl (65-105)
[2022-05-16] MEDS: MORPHINE SULFATE (*CRX) 2 MG/ML INJ IV PUSH (23:33)
[2022-05-17] VITALS (20 sets, daily range): BP systolic 91–124; BP diastolic 34–57; PULSE 64–87; RESP 17–19; TEMP 36.4–37.3; O2SAT 90–100
--- NOTE | 2022-05-17 07:15 | PM.IMPN ---
Progress Note: A&P Assessment and Plan (1) End stage renal disease: Code(s): N18.6 - End stage renal disease Status: Chronic Assessment and Plan: Current BUN and creatinine is 22/3.10 Patient is a dialysis patient and goes to dialysis Sunday Dr. Ureña is consulted and will follow Dialysis from 05/15/22 removed 2L Monitor breathing status Trend labs Daily weights (2) Small bowel obstruction: Code(s): K56.609 - Unspecified intestinal obstruction, unspecified as to partial versus complete obstruction Status: Acute Assessment and Plan: Patient has been reporting nausea, vomiting, diarrhea KUB from 05/17/22 Paracentesis ordered, cannot be done until Sunday due to Plavix NG tube placed, draining a dark brown stomach contents Abd ct showed bowel obstruction in the right lower quadrant, thickened arroyo GS consulted NPO diet Light fluids for hydration (3) Abdominal ascites: Code(s): R18.8 - Other ascites Status: Acute Assessment and Plan: KUB indicates ascites on the x-ray CT also indicates moderate amount of ascites Abdomen remains firm Paracentesis with diagnostics ordered Trend volume status (4) Pleural effusion: Code(s): J90 - Pleural effusion, not elsewhere classified Status: Acute Assessment and Plan: Moderate left-sided pleural effusion 600 mL was drained on 05/05/2022 Chest xray indicates no improvements of effusion Thoracentesis ordered with diagnostics, will not be able to be obtained due to the plavix Concern about being unilateral Daily weights (5) Hypotension: Code(s): I95.9 - Hypotension, unspecified Status: Acute Assessment and Plan: Patient was noted to be hypotensive upon arrival at 73/50 Current blood pressure is 117/53 Seems that he received albumin and midodrine overnight Hold Entresto, Imdur, carvedilol Trend blood pressure Adjust therapy as indicated (6) Diabetes: Code(s): E11.9 - Type 2 diabetes mellitus without complications Status: Chronic Assessment and Plan: Current glucose is 88 Trend glucose Insulin sliding scale Hypoglycemic protocol Adjust therapy as indicated Accu-Cheks AC and HS NPO diet for now (7) CHF (congestive heart failure): Qualifiers: Heart failure chronicity: chronic Heart failure type: unspecified Qualified Code(s): I50.9 - Heart failure, unspecified Code(s): I50.9 - Heart failure, unspecified Status: Acute Assessment and Plan: 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 (9) Cirrhosis: Code(s): K74.60 - Unspecified cirrhosis of liver Status: Acute Assessment and Plan: Trend AST/ALT Ascites present Paracentesis ordered CT showed cirrhosis Subjective Date/time seen: 05/17/22 07:15 Interval history: 05/17/22 0715 Patient seems to be doing okay today. He did state that the NG tube is uncomfortable in his throat is sore however he is doing okay. He is very bored and stating that he is up and down and he does sleeps a lot. He denies any chest pain or shortness of breath, nausea, vomiting. He did s
--- NOTE | 2022-05-17 07:15 | P.PNIM_ITS ---
Progress Note: A&P Assessment and Plan (1) End stage renal disease: Code(s): N18.6 - End stage renal disease Status: Chronic Assessment and Plan: * Current BUN and creatinine is 22/3.10 * Patient is a dialysis patient and goes to dialysis Sunday * Dr. Ureña is consulted and will follow * Dialysis from 05/15/22 removed 2L * Monitor breathing status * Trend labs * Daily weights (2) Small bowel obstruction: Code(s): K56.609 - Unspecified intestinal obstruction, unspecified as to partial versus complete obstruction Status: Acute Assessment and Plan: * Patient has been reporting nausea, vomiting, diarrhea * KUB from 05/17/22 * Paracentesis ordered, cannot be done until Sunday due to Plavix * NG tube placed, draining a dark brown stomach contents * Abd ct showed bowel obstruction in the right lower quadrant, thickened arroyo * GS consulted * NPO diet * Light fluids for hydration (3) Abdominal ascites: Code(s): R18.8 - Other ascites Status: Acute Assessment and Plan: * KUB indicates ascites on the x-ray * CT also indicates moderate amount of ascites * Abdomen remains firm * Paracentesis with diagnostics ordered * Trend volume status (4) Pleural effusion: Code(s): J90 - Pleural effusion, not elsewhere classified Status: Acute Assessment and Plan: * Moderate left-sided pleural effusion * 600 mL was drained on 05/05/2022 * Chest xray indicates no improvements of effusion * Thoracentesis ordered with diagnostics, will not be able to be obtained due to the plavix * Concern about being unilateral * Daily weights (5) Hypotension: Code(s): I95.9 - Hypotension, unspecified Status: Acute Assessment and Plan: * Patient was noted to be hypotensive upon arrival at 73/50 * Current blood pressure is 117/53 * Seems that he received albumin and midodrine overnight * Hold Entresto, Imdur, carvedilol * Trend blood pressure * Adjust therapy as indicated (6) Diabetes: Code(s): E11.9 - Type 2 diabetes mellitus without complications Status: Chronic Assessment and Plan: * Current glucose is 88 * Trend glucose * Insulin sliding scale * Hypoglycemic protocol * Adjust therapy as indicated * Accu-Cheks AC and HS * NPO diet for now (7) CHF (congestive heart failure): Qualifiers: Heart failure chronicity: chronic Heart failure type: unspecified Qualified Code(s): I50.9 - Heart failure, unspecified Code(s): I50.9 - Heart failure, unspecified Status: Acute Assessment and Plan: * 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 * Chest x-ray shows pulmonary edema along with a moderate size pleural effusion * Unable to get dialysis the day of arrival * Dialysis performed on 05/17/22 with 1L removal * Nephrology on board * Daily weights * Hold Entresto and carvedilol due to hypotension * thoracentesis ordered (8) Anemia: Code(s): D64.9 - Anemia, unspecified Status: Chronic Assessment and Plan: * H&H 8.8/31.5 * Baseline appears to be around 8-9 * 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
[2022-05-17 07:30] LABS: Basophils Percent Auto 0.2 % (0.2-1.2); Eosinophils Absolute Auto 0.3 K/mm3 (0-0.3); Hematocrit 31.5 % (42.0-52.0); Hemoglobin 8.8 g/dL (14.0-18.0); Immature Granulocyte Absolute 0.02 K/mm3 (0.00-0.031); Immature Granulocyte Percent A 0.2 % (0-0.5); Immature Platelet Fraction Pct 5.6 % (0.9-11.2); Lymphocytes Absolute Auto 0.75 K/mm3 (0.9-3.2); Lymphocytes Percent Auto 8.7 % (18.3-44.2); Mean Corpuscular HGB Conc 27.9 g/dl (32-36); Mean Corpuscular Hemoglobin 28.5 pg (26-34); Mean Corpuscular Volume 101.9 fl (80-100); Mean Platelet Volume 10.7 fl (7.4-10.4); Monocytes Absolute Auto 0.8 K/mm3 (0.1-0.6); Monocytes Percent Auto 9.6 % (2.6-8.5); Neutrophils Absolute Auto 6.7 K/mm3 (1.3-6.7); Neutrophils Percent Auto 78.3 % (45.5-73.1); Platelet Count Result 144 k/mm3 (150-375); Red Blood Count 3.09 M/mm3 (4.6-6.20); White Blood Count 8.6 K/mm3 (4.5-10.0)
--- NOTE | 2022-05-17 07:35 | PC.NURSE ---
To dialysis via bed.
[2022-05-17 07:54] LABS: Alanine Aminotransferase 7 U/L (6-50); Alkaline Phosphatase 82 U/L (38-126); Aspartate Amino Transferase 18 U/L (17-59); Bilirubin,Total 0.5 mg/dL (0.2-1.3); Blood Urea Nitrogen 29 mg/dL (9-20); Calcium 7.9 mg/dL (8.4-10.2); Carbon Dioxide > 40 mmol/L (22-30); Chloride 95 mmol/L (98-107); Estimated CRCL calculation 13 ml/min; Estimated Glomerular Filt Rate 14; Glucose 86 mg/dL (65-110); Magnesium 1.8 mg/dL (1.6-2.3); Potassium 3.3 mmol/L (3.4-5.0); Sodium 140 mmol/L (137-145)
[2022-05-17 08:11] LABS: INR 1.2; Partial Thromboplastin Time 35.6 SECONDS (22.3-36.8); Prothrombin Time 14.3 Seconds (11.1-14.7)
[2022-05-17 08:13] LABS: Hypochromasia 1+ (NORMAL)
[2022-05-17 08:14] LABS: Anisocytosis 1+ (NORMAL)
--- NOTE | 2022-05-17 10:37 | PM.PNNEP ---
Progress Note: A&P Assessment and Plan (1) End stage renal disease: Code(s): N18.6 - End stage renal disease Status: Chronic Assessment and Plan: due progression of disease from HTN, DM, cardiorenal syndrome and TITA dialysis is underway would like to pursue outpatient peritoneal dialysis eventually but his GI situation may obviate this. (2) Hypotension: Code(s): I95.9 - Hypotension, unspecified Status: Acute Assessment and Plan: Blood pressure seems to be doing pretty well today. (3) Nausea, vomiting, and diarrhea: Code(s): R11.2 - Nausea with vomiting, unspecified; R19.7 - Diarrhea, unspecified Status: Acute Assessment and Plan: still requiring NG tube drainage. CT scan shows possible distal obstruction continue supportive therapy (4) Anemia: Code(s): D64.9 - Anemia, unspecified Status: Chronic Assessment and Plan: due to ESRD Epogen with HD Hemoglobin 8.8 today. He may be losing a little blood from his GI process. (5) Diabetes: Code(s): E11.9 - Type 2 diabetes mellitus without complications Status: Chronic Assessment and Plan: On Accu-Cheks and sliding scale insulin per hospitalists. \ (6) Chronic anemia: Code(s): D64.9 - Anemia, unspecified Status: Chronic (7) Volume overload: Code(s): E87.70 - Fluid overload, unspecified Status: Chronic (8) Chronic combined systolic and diastolic heart failure: Code(s): I50.42 - Chronic combined systolic (congestive) and diastolic (congestive) heart failure Status: Chronic Subjective Date/time seen: 05/17/22 10:37 Interval history: Jaime is feeling about the same today. No belly pain or nausea. He still has a NG tube in. It has been to wall suction all night long. While in dialysis the tube was clamped off but if he develops nausea he knows to tell the nurse and they will bring the suction setup down. He is on dialysis now and tolerating it well. He was seen at 8:00 a.m. Exam Narrative: General: WD/WN male in NAD Heart: normal S1 and S2; no rub Lungs: decreased at bases Abdomen: soft, nontender, some distension, hypoactive bowel sounds Extremities: no cyanosis or clubbing; trace - 1+ edema Skin: No rash or subcu nodules Objective Data Vital Signs Vital Signs: Vital Signs - 24 hr 05/16/22 11:42 05/16/22 12:00 05/16/22 15:54 Temperature 36.1 C L 36.9 C Pulse Rate 67 70 67 Respiratory Rate 16 16 Blood Pressure 113/53 L 115/48 L Pulse Oximetry 100 100 Oxygen Delivery Oxygen Flow Rate 05/16/22 16:00 05/16/22 20:00 05/16/22 20:00 Temperature 36.8 C Pulse Rate 66 64 63 Respiratory Rate 18 Blood Pressure 109/40 L Pulse Oximetry 100 Oxygen Delivery Oxygen Flow Rate 05/16/22 20:00 05/17/22 00:00 05/17/22 04:00 Temperature Pulse Rate 71 64 Respiratory Rate Blood Pressure Pulse Oximetry 97 Oxygen Delivery Nasal Cannula Oxygen Flow Rate 2 05/17/22 07:45 05/17/22 07:45 05/17/22 07:50 Temperature 36.6 C Pulse Rate 74 68 Respiratory Rate 19 Blood Pressure 96/53 L 108/47 L Pulse Oximetry Oxygen Delivery Oxygen Flow Rate 2 05/17/22 08:00 05/17/22 08:20 05/17/22 09:00 Temperature Pulse Rate 72 70 70 Respiratory Rate Blood Pressure 106/54 L 92/40 L 94/48 L Pulse Oximetry Oxygen Delivery Oxygen Flow Rate 05/17/22 09:20 05/17/22 09:40 05/17/22 10:00 Temperature Pulse Rate 71 69 65 Respiratory Rate Blood Pressure 104/48 L 124/56 L 110/52 L Pulse Oximetry Oxygen Delivery Oxygen Flow Rate 05/17/22 10:20 Temperature Pulse Rate 65 Respiratory Rate Blood Pressure 100/45 L Pulse Oximetry Oxygen Delivery Oxygen Flow Rate Intake/Output Intake/Output: Intake & Output 05/14/22 05/15/22 05/16/22 05/17/22 23:59 23:59 23:59 23:59 Intake
--- NOTE | 2022-05-17 11:35 | PC.NURSE ---
Back from dialysis via bed. Report received from dialysis nurse.
[2022-05-17] MEDS: DEXTROSE 5%/LACTATED RINGERS 1,000 ML 40 ML IV CONT (11:47)
[2022-05-17] MEDS: GLUCOSE ORAL GEL 15 GM OF GLUCSE IN 37.5 GM TUBE PO (11:54)
[2022-05-17 11:58] LABS: Glucose Point of Care 66 mg/dl (65-105)
[2022-05-17 13:13] LABS: Glucose Point of Care 79 mg/dl (65-105)
--- NOTE | 2022-05-17 14:03 | PM.PNGS ---
Progress Note: A&P Assessment and Plan (1) Small bowel obstruction: Code(s): K56.609 - Unspecified intestinal obstruction, unspecified as to partial versus complete obstruction Status: Acute Assessment and Plan: KUB this morning still suggests ileus vs small bowel obstruction, but seems to be improving. Continue NG tube, NPO, and IV fluids. Will repeat KUB tomorrow. May consider Gastrografin small bowel follow through tomorrow depending on how he progresses. Encouraged walking the halls and being up to the chair today. (2) End stage renal disease: Code(s): N18.6 - End stage renal disease Status: Chronic Assessment and Plan: Hemodialysis done this morning. Nephrology following. (3) Cirrhosis: Code(s): K74.60 - Unspecified cirrhosis of liver Status: Acute (4) Abdominal ascites: Code(s): R18.8 - Other ascites Status: Acute (5) CHF (congestive heart failure): Code(s): I50.9 - Heart failure, unspecified Status: Acute (6) Insulin dependent type 2 diabetes mellitus: Code(s): E11.9 - Type 2 diabetes mellitus without complications; Z79.4 - skilled nursing (current) use of insulin Status: Acute (7) Diabetes: Code(s): E11.9 - Type 2 diabetes mellitus without complications Status: Chronic (8) Antiplatelet or antithrombotic long-term use: Code(s): Z79.02 - skilled nursing (current) use of antithrombotics/antiplatelets Status: Acute Assessment and Plan: Plavix on hold for paracentesis and possible thoracentesis. Plan I have discussed the patient's case and plan of care with Dr. Aviles. Subjective Subjective Date/Time Seen: 05/17/22 12:03 Patient reports: no new complaints, feels better, flatus and no bowel movement Interval history: Patient reports feeling better today. Denies any abdominal pain. NG with 650 cc output overnight. Review of Systems Review of Systems: All systems reviewed & are unremarkable except as noted in HPI and below Exam Const: General: comfortable, no acute distress and awake Orientation/consciousness: patient oriented x3 GI: Inspection: non-distended GI Palp: Yes Soft to palpation, No Tenderness to palpation present (GI), No Guarding due to palpation present (GI) and Yes Hernia present (incisional hernias remain soft and reducible) Auscultation: Hypoactive bowel sounds present Psych: Insight: Good insight present (Psych) Objective Data Vital Signs Vital Signs: Vital Signs - 24 hr 05/16/22 15:54 05/16/22 16:00 05/16/22 20:00 Temperature 98.5 F 98.2 F Pulse Rate 67 66 64 Respiratory Rate 16 18 Blood Pressure 115/48 L 109/40 L Pulse Oximetry 100 100 Oxygen Delivery Oxygen Flow Rate 05/16/22 20:00 05/16/22 20:00 05/17/22 00:00 Temperature Pulse Rate 63 71 Respiratory Rate Blood Pressure Pulse Oximetry 97 Oxygen Delivery Nasal Cannula Oxygen Flow Rate 2 05/17/22 04:00 05/17/22 07:45 05/17/22 07:45 Temperature 97.8 F Pulse Rate 64 74 Respiratory Rate 19 Blood Pressure 96/53 L Pulse Oximetry Oxygen Delivery Oxygen Flow Rate 2 05/17/22 07:50 05/17/22 08:00 05/17/22 08:20 Temperature Pulse Rate 68 72 70 Respiratory Rate Blood Pressure 108/47 L 106/54 L 92/40 L Pulse Oximetry Oxygen Delivery Oxygen Flow Rate 05/17/22 09:00 05/17/22 09:20 05/17/22 09:40 Temperature Pulse Rate 70 71 69 Respiratory Rate Blood Pressure 94/48 L 104/48 L 124/56 L Pulse Oximetry Oxygen Delivery Oxygen Flow Rate 05/17/22 10:00 05/17/22 10:20 05/17/22 10:40 Temperature Pulse Rate 65 65 70 Respiratory Rate Blood Pressure 110/52 L 100/45 L 92/34 L Pulse Oximetry Oxygen Delivery Oxygen Flow Rate 05/17/22 11:00 05/17/22 11:32 05/17/22 11:35 Temperature 97.5 F L Pulse Rate 72 81 Respiratory Rate 17 Blood Pressure 91/48 L 107/57 L Pulse Oximetry 97 Oxygen Delivery Betito
[2022-05-17 18:06] LABS: Glucose Point of Care 97 mg/dl (65-105)
[2022-05-18] VITALS (9 sets, daily range): BP systolic 100–128; BP diastolic 34–46; PULSE 70–83; RESP 16–18; TEMP 36.1–36.9; O2SAT 95–100
[2022-05-18] MEDS: MORPHINE SULFATE (*CRX) 2 MG/ML INJ IV PUSH ×2 (04:19→18:31)
[2022-05-18] MEDS: DEXTROSE 5%/LACTATED RINGERS 1,000 ML 40 ML IV CONT (06:07)
[2022-05-18] MEDS: LEVOTHYROXINE SODIUM INJ 100 MCG/5 ML VIAL 25 MCG IV PUSH (06:08)
[2022-05-18 06:36] LABS: Basophils Percent Auto 0.3 % (0.2-1.2); Eosinophils Absolute Auto 0.1 K/mm3 (0-0.3); Eosinophils Percent Auto 0.9 % (0-4.4); Hematocrit 30.5 % (42.0-52.0); Hemoglobin 8.6 g/dL (14.0-18.0); Immature Granulocyte Absolute 0.03 K/mm3 (0.00-0.031); Immature Granulocyte Percent A 0.3 % (0-0.5); Lymphocytes Absolute Auto 0.71 K/mm3 (0.9-3.2); Lymphocytes Percent Auto 7.6 % (18.3-44.2); Mean Corpuscular HGB Conc 28.2 g/dl (32-36); Mean Corpuscular Hemoglobin 28.9 pg (26-34); Mean Corpuscular Volume 102.3 fl (80-100); Mean Platelet Volume 11.1 fl (7.4-10.4); Monocytes Percent Auto 10.4 % (2.6-8.5); Neutrophils Absolute Auto 7.6 K/mm3 (1.3-6.7); Neutrophils Percent Auto 80.5 % (45.5-73.1); Platelet Count Result 133 k/mm3 (150-375); Red Blood Count 2.98 M/mm3 (4.6-6.20); Red Cell Distribution Width 18.1 % (11.5-14.5); White Blood Count 9.4 K/mm3 (4.5-10.0)
[2022-05-18 06:47] LABS: Glucose Point of Care 95 mg/dl (65-105)
[2022-05-18 06:57] LABS: Alanine Aminotransferase 9 U/L (6-50); Alkaline Phosphatase 79 U/L (38-126); Aspartate Amino Transferase 21 U/L (17-59); Bilirubin,Total 0.6 mg/dL (0.2-1.3); Blood Urea Nitrogen 18 mg/dL (9-20); Calcium 7.7 mg/dL (8.4-10.2); Carbon Dioxide > 40 mmol/L (22-30); Chloride 96 mmol/L (98-107); Estimated CRCL calculation 17 ml/min; Estimated Glomerular Filt Rate 19; Glucose 99 mg/dL (65-110); Magnesium 1.7 mg/dL (1.6-2.3); Phosphorus 3.5 mg/dL (2.5-4.5); Potassium 3.3 mmol/L (3.4-5.0); Sodium 140 mmol/L (137-145)
[2022-05-18 08:19] LABS: Glucose Point of Care 99 mg/dl (65-105)
[2022-05-18 08:33] LABS: Anisocytosis 2+ (NORMAL); Hypochromasia 2+ (NORMAL)
[2022-05-18 08:34] LABS: Microcytosis 1+ (NORMAL); Ovalocytes 1+ (NORMAL); Poikilocytosis 1+ (NORMAL); Schistocytes 1+ (NORMAL)
--- NOTE | 2022-05-18 10:39 | PM.PNGS ---
Progress Note: A&P Assessment and Plan (1) Small bowel obstruction: Code(s): K56.609 - Unspecified intestinal obstruction, unspecified as to partial versus complete obstruction Status: Acute Assessment and Plan: Clinically improving and KUB this morning suggest that this is resolving. Gastrografin upper GI small bowel series ordered today to further evaluate. If no evidence of an obstruction, then we can remove his NG tube and start clear liquids. (2) End stage renal disease: Code(s): N18.6 - End stage renal disease Status: Chronic (3) Cirrhosis: Code(s): K74.60 - Unspecified cirrhosis of liver Status: Acute (4) Abdominal ascites: Code(s): R18.8 - Other ascites Status: Acute (5) CHF (congestive heart failure): Code(s): I50.9 - Heart failure, unspecified Status: Acute (6) Insulin dependent type 2 diabetes mellitus: Code(s): E11.9 - Type 2 diabetes mellitus without complications; Z79.4 - MCFP (current) use of insulin Status: Acute (7) Antiplatelet or antithrombotic long-term use: Code(s): Z79.02 - medical terminologist (current) use of antithrombotics/antiplatelets Status: Acute Assessment and Plan: Plavix on hold for paracentesis and possible thoracentesis. Plan I have discussed the patient's case and plan of care with Dr. Aviles. Subjective Subjective Date/Time Seen: 05/18/22 10:00 Patient reports: no new complaints, feels better, flatus, no bowel movement and other (No abdominal pain but feeling more bloated today) Review of Systems Review of Systems: All systems reviewed & are unremarkable except as noted in HPI and below Exam Const: General: comfortable and no acute distress Orientation/consciousness: patient oriented x3 GI: Inspection: distended GI Palp: Yes Soft to palpation, No Tenderness to palpation present (GI), No Guarding due to palpation present (GI) and Yes Hernia present (RLQ ventral hernia still soft and reducible) Auscultation: normoactive bowel sounds Psych: Insight: Good insight present (Psych) Judgement: Good judgement present (Psych) Objective Data Vital Signs Vital Signs: Vital Signs - 24 hr 05/17/22 10:40 05/17/22 11:00 05/17/22 11:32 Temperature 97.5 F L Pulse Rate 70 72 81 Respiratory Rate 17 Blood Pressure 92/34 L 91/48 L 107/57 L Pulse Oximetry Oxygen Delivery Oxygen Flow Rate 05/17/22 11:35 05/17/22 14:00 05/17/22 12:00 Temperature 99.1 F Pulse Rate 70 77 Respiratory Rate 18 Blood Pressure 122/50 L Pulse Oximetry 97 100 Oxygen Delivery Nasal Cannula Oxygen Flow Rate 2 05/17/22 16:00 05/17/22 22:23 05/17/22 20:00 Temperature 97.7 F Pulse Rate 87 77 84 Respiratory Rate 18 Blood Pressure 109/40 L Pulse Oximetry 90 Oxygen Delivery Oxygen Flow Rate 05/17/22 20:00 05/18/22 00:00 05/18/22 04:00 Temperature Pulse Rate 77 80 Respiratory Rate Blood Pressure Pulse Oximetry 96 Oxygen Delivery Nasal Cannula Oxygen Flow Rate 2 05/18/22 06:00 05/18/22 08:00 05/18/22 08:00 Temperature 97.0 F L Pulse Rate 83 77 Respiratory Rate 16 Blood Pressure 101/43 L Pulse Oximetry 95 95 Oxygen Delivery Nasal Cannula Oxygen Flow Rate 2 Intake/Output Intake/Output: Intake & Output 05/15/22 05/16/22 05/17/22 05/18/22 23:59 23:59 23:59 23:59 Intake Total 705 815 7167 Output Total 2200 700 2050 400 Balance -1570 -700 -1060 600 Meds/Results Medications: Active Medications Generic Name Dose Route Start Last Admin Trade Name Arunq PRN Reason Stop Dose Admin Aspirin 81 mg 05/13/22 09:00 05/14/22 08:15 Aspirin 81 Mg Enteric Tablet PO 81 mg DAILY JEFF Administration Clopidogrel Bisulfate 75 mg 05/13/22 09:00 05/14/22 08:15 Clopidogrel Bisulfate 75 Mg Tablet PO 75 mg DAILY JEFF Administration Dextrose 12.5 gm 05/12/22 15:28 05/16/22 11:52 Dextrose 50% 25 Gm/50 Ml
--- NOTE | 2022-05-18 11:00 | P.PNIM_ITS ---
Progress Note: A&P Assessment and Plan (1) End stage renal disease: Code(s): N18.6 - End stage renal disease Status: Chronic Assessment and Plan: * Current BUN and creatinine is 18/3.20 * Patient is a dialysis patient and goes to dialysis Sunday * Dr. Ureña is consulted and will follow * Dialysis from 05/15/22 removed 2L * Monitor breathing status * Trend labs * Daily weights (2) Small bowel obstruction: Code(s): K56.609 - Unspecified intestinal obstruction, unspecified as to partial versus complete obstruction Status: Acute Assessment and Plan: * Patient has been reporting nausea, vomiting, diarrhea * KUB from 05/17/22 * Paracentesis ordered, cannot be done until Sunday due to Plavix * NG was able to be removed * Abd ct showed bowel obstruction in the right lower quadrant, thickened arroyo * GS consulted * NPO diet * Light fluids for hydration (3) Abdominal ascites: Code(s): R18.8 - Other ascites Status: Acute Assessment and Plan: * KUB indicates ascites on the x-ray * CT also indicates moderate amount of ascites * Abdomen remains firm * Paracentesis with diagnostics ordered, should be performed today * Trend volume status (4) Pleural effusion: Code(s): J90 - Pleural effusion, not elsewhere classified Status: Acute Assessment and Plan: * Moderate left-sided pleural effusion * 600 mL was drained on 05/05/2022 * Chest xray indicates no improvements of effusion * Thoracentesis ordered with diagnostics, will not be able to be obtained due to the plavix * Concern about being unilateral * Daily weights (5) Hypotension: Code(s): I95.9 - Hypotension, unspecified Status: Acute Assessment and Plan: * Patient was noted to be hypotensive upon arrival at 73/50 * Current blood pressure is 101/43 * Seems that he received albumin and midodrine overnight * Hold Entresto, Imdur, carvedilol * Trend blood pressure * Adjust therapy as indicated (6) Diabetes: Code(s): E11.9 - Type 2 diabetes mellitus without complications Status: Chronic Assessment and Plan: * Current glucose is 99 * Trend glucose * Insulin sliding scale * Hypoglycemic protocol * Adjust therapy as indicated * Accu-Cheks AC and HS * NPO diet for now (7) CHF (congestive heart failure): Qualifiers: Heart failure chronicity: chronic Heart failure type: unspecified Qualified Code(s): I50.9 - Heart failure, unspecified Code(s): I50.9 - Heart failure, unspecified Status: Acute Assessment and Plan: * 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 * Chest x-ray shows pulmonary edema along with a moderate size pleural effusion * Unable to get dialysis the day of arrival * Dialysis performed on 05/17/22 with 1L removal * Nephrology on board * Daily weights * Hold Entresto and carvedilol due to hypotension * thoracentesis ordered (8) Anemia: Code(s): D64.9 - Anemia, unspecified Status: Chronic Assessment and Plan: * H&H 8.6/30.5 * Baseline appears to be around 8-9 * 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
--- NOTE | 2022-05-18 11:00 | PM.IMPN ---
Progress Note: A&P Assessment and Plan (1) End stage renal disease: Code(s): N18.6 - End stage renal disease Status: Chronic Assessment and Plan: Current BUN and creatinine is 18/3.20 Patient is a dialysis patient and goes to dialysis Sunday Dr. Ureña is consulted and will follow Dialysis from 05/15/22 removed 2L Monitor breathing status Trend labs Daily weights (2) Small bowel obstruction: Code(s): K56.609 - Unspecified intestinal obstruction, unspecified as to partial versus complete obstruction Status: Acute Assessment and Plan: Patient has been reporting nausea, vomiting, diarrhea KUB from 05/17/22 Paracentesis ordered, cannot be done until Sunday due to Plavix NG was able to be removed Abd ct showed bowel obstruction in the right lower quadrant, thickened arroyo GS consulted NPO diet Light fluids for hydration (3) Abdominal ascites: Code(s): R18.8 - Other ascites Status: Acute Assessment and Plan: KUB indicates ascites on the x-ray CT also indicates moderate amount of ascites Abdomen remains firm Paracentesis with diagnostics ordered, should be performed today Trend volume status (4) Pleural effusion: Code(s): J90 - Pleural effusion, not elsewhere classified Status: Acute Assessment and Plan: Moderate left-sided pleural effusion 600 mL was drained on 05/05/2022 Chest xray indicates no improvements of effusion Thoracentesis ordered with diagnostics, will not be able to be obtained due to the plavix Concern about being unilateral Daily weights (5) Hypotension: Code(s): I95.9 - Hypotension, unspecified Status: Acute Assessment and Plan: Patient was noted to be hypotensive upon arrival at 73/50 Current blood pressure is 101/43 Seems that he received albumin and midodrine overnight Hold Entresto, Imdur, carvedilol Trend blood pressure Adjust therapy as indicated (6) Diabetes: Code(s): E11.9 - Type 2 diabetes mellitus without complications Status: Chronic Assessment and Plan: Current glucose is 99 Trend glucose Insulin sliding scale Hypoglycemic protocol Adjust therapy as indicated Accu-Cheks AC and HS NPO diet for now (7) CHF (congestive heart failure): Qualifiers: Heart failure chronicity: chronic Heart failure type: unspecified Qualified Code(s): I50.9 - Heart failure, unspecified Code(s): I50.9 - Heart failure, unspecified Status: Acute Assessment and Plan: 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 (9) Cirrhosis: Code(s): K74.60 - Unspecified cirrhosis of liver Status: Acute Assessment and Plan: Trend AST/ALT Ascites present Paracentesis ordered CT showed cirrhosis Time Spent With Patient Time with patient: Greater than 35 minutes Subjective Date/time seen: 05/18/22 1100 Interval history: 05/18/22 1100 Patient seems to be doing ok today. He is ready to get the NG tube out. He had just gotten back from a small bowel follow through. He denies any chest pain, shortness of breath, nausea, vomiting, weakness, fatigue, fevers,
[2022-05-18 12:04] LABS: Glucose Point of Care 82 mg/dl (65-105)
--- NOTE | 2022-05-18 15:04 | PM.PNNEP ---
Progress Note: A&P Assessment and Plan (1) End stage renal disease: Code(s): N18.6 - End stage renal disease Status: Chronic Assessment and Plan: due progression of disease from HTN, DM, cardiorenal syndrome and TITA hemodialysis due tomorrow (2) Hypotension: Code(s): I95.9 - Hypotension, unspecified Status: Acute Assessment and Plan: Blood pressure seems to be doing pretty well today. (3) Nausea, vomiting, and diarrhea: Code(s): R11.2 - Nausea with vomiting, unspecified; R19.7 - Diarrhea, unspecified Status: Acute Assessment and Plan: He feels better. CT scan shows possible distal obstruction NG tube is out. Trying clear liquids. (4) Anemia: Code(s): D64.9 - Anemia, unspecified Status: Chronic Assessment and Plan: due to ESRD Epogen with HD Hemoglobin 8.6 today. He may be losing a little blood from his GI process. (5) Diabetes: Code(s): E11.9 - Type 2 diabetes mellitus without complications Status: Chronic Assessment and Plan: On Accu-Cheks and sliding scale insulin per hospitalists. \ (6) Chronic anemia: Code(s): D64.9 - Anemia, unspecified Status: Chronic (7) Volume overload: Code(s): E87.70 - Fluid overload, unspecified Status: Chronic (8) Chronic combined systolic and diastolic heart failure: Code(s): I50.42 - Chronic combined systolic (congestive) and diastolic (congestive) heart failure Status: Chronic Subjective Date/time seen: 05/18/22 15:04 Interval history: Jaime is feeling about the same today. No belly pain or nausea. the NG tube is out and he feels great. Trying a clear liquid diet now. Exam Narrative: General: WD/WN male in NAD Heart: normal S1 and S2; no rub or gallop Lungs: decreased at bases Abdomen: soft, nontender, some distension, hypoactive bowel sounds Extremities: no cyanosis or clubbing; trace - 1+ edema Skin: No rash or subcu nodules Objective Data Vital Signs Vital Signs: Vital Signs - 24 hr 05/17/22 16:00 05/17/22 22:23 05/17/22 20:00 Temperature 36.5 C Pulse Rate 87 77 84 Respiratory Rate 18 Blood Pressure 109/40 L Pulse Oximetry 90 Oxygen Delivery Oxygen Flow Rate 05/17/22 20:00 05/18/22 00:00 05/18/22 04:00 Temperature Pulse Rate 77 80 Respiratory Rate Blood Pressure Pulse Oximetry 96 Oxygen Delivery Nasal Cannula Oxygen Flow Rate 2 05/18/22 06:00 05/18/22 08:00 05/18/22 08:00 Temperature 36.1 C L Pulse Rate 83 77 Respiratory Rate 16 Blood Pressure 101/43 L Pulse Oximetry 95 95 Oxygen Delivery Nasal Cannula Oxygen Flow Rate 2 05/18/22 12:00 Temperature Pulse Rate 74 Respiratory Rate Blood Pressure Pulse Oximetry Oxygen Delivery Oxygen Flow Rate Intake/Output Intake/Output: Intake & Output 05/15/22 05/16/22 05/17/22 05/18/22 23:59 23:59 23:59 23:59 Intake Total 322 323 0431 Output Total 2200 700 2050 400 Balance -1570 -700 -1060 600 Meds/Results Medications: Active Medications Generic Name Dose Route Start Last Admin Trade Name Freq PRN Reason Stop Dose Admin Aspirin 81 mg 05/13/22 09:00 05/14/22 08:15 Aspirin 81 Mg Enteric Tablet PO 81 mg DAILY JEFF Administration Clopidogrel Bisulfate 75 mg 05/13/22 09:00 05/14/22 08:15 Clopidogrel Bisulfate 75 Mg Tablet PO 75 mg DAILY JEFF Administration Dextrose 12.5 gm 05/12/22 15:28 05/16/22 11:52 Dextrose 50% 25 Gm/50 Ml Syringe IV PUSH 12.5 gm PRN PRN Administration Hypoglycemia Protocol Glucagon 1 mg 05/12/22 15:28 Glucagon For Inj 1 Mg Vial IM PRN PRN Hypoglycemia Protocol Glucose 15 gm 05/12/22 15:28 05/17/22 11:54 Glucose Oral Gel 15 Gm Of Glucse In 37.5 Gm Tube PO 15 gm PRN PRN Administration Hypoglycemia Protocol Heparin Sodium (P
[2022-05-18 17:28] LABS: Glucose Point of Care 154 mg/dl (65-105)
[2022-05-19] VITALS (18 sets, daily range): BP systolic 93–118; BP diastolic 34–55; PULSE 59–82; RESP 16–18; TEMP 36.3–37; O2SAT 90–100
[2022-05-19] MEDS: MORPHINE SULFATE (*CRX) 2 MG/ML INJ IV PUSH (00:47)
[2022-05-19] MEDS: LEVOTHYROXINE SODIUM INJ 100 MCG/5 ML VIAL 25 MCG IV PUSH (05:02)
[2022-05-19] MEDS: DEXTROSE 5%/LACTATED RINGERS 1,000 ML 40 ML IV CONT (05:03)
[2022-05-19 06:27] LABS: Anion Gap 4 mmol/L (8-16); Blood Urea Nitrogen 26 mg/dL (9-20); Calcium 8.2 mg/dL (8.4-10.2); Carbon Dioxide 39 mmol/L (22-30); Chloride 97 mmol/L (98-107); Estimated CRCL calculation 13 ml/min; Estimated Glomerular Filt Rate 14; Glucose 100 mg/dL (65-110); Phosphorus 3.6 mg/dL (2.5-4.5); Potassium 3.1 mmol/L (3.4-5.0); Sodium 140 mmol/L (137-145)
[2022-05-19 07:15] LABS: Hematocrit 31.1 % (42.0-52.0); Hemoglobin 9.3 g/dL (14.0-18.0); Immature Platelet Fraction Pct 6.3 % (0.9-11.2); Mean Corpuscular HGB Conc 29.9 g/dl (32-36); Mean Corpuscular Hemoglobin 29.7 pg (26-34); Mean Corpuscular Volume 99.4 fl (80-100); Mean Platelet Volume 11.4 fl (7.4-10.4); Red Blood Count 3.13 M/mm3 (4.6-6.20); Red Cell Distribution Width 17.7 % (11.5-14.5); White Blood Count 9.6 K/mm3 (4.5-10.0)
[2022-05-19 07:20] LABS: Platelet Count Result 117 k/mm3 (150-375)
--- NOTE | 2022-05-19 07:35 | PM.PNGS ---
Progress Note: A&P Assessment and Plan (1) Small bowel obstruction: Code(s): K56.609 - Unspecified intestinal obstruction, unspecified as to partial versus complete obstruction Status: Acute Assessment and Plan: Appears to have resolved. Will advance to diabetic diet. Patient high risk for surgery. Will sign off. Please call if can be of further assistance. (2) End stage renal disease: Code(s): N18.6 - End stage renal disease Status: Chronic (3) Diabetes: Code(s): E11.9 - Type 2 diabetes mellitus without complications Status: Chronic Subjective Subjective Date/Time Seen: 05/19/22 07:35 Patient reports: feels better, pain is less, tolerating liquids well and bowel movement Review of Systems Review of Systems: All systems reviewed & are unremarkable except as noted in HPI and below ( HPI and those items noted below) Constitutional: Constitutional: Denies body ache(s), Denies chills, Denies fever(s) and Reports increased appetite Cardiovascular: Cardiovascular: Denies chest pain and Denies dyspnea Respiratory: Respiratory: Denies cough and Denies dyspnea Gastrointestinal: Gastrointestinal: Reports as per HPI, Denies abdominal pain ( reports abdomen feels soft.), Denies nausea and Denies vomiting Exam Const: General: cooperative, comfortable, no acute distress, alert and awake Nutritional Appearance: average body habitus Orientation/consciousness: No confusion GI: Inspection: normal to inspection, non-distended, obesity ( Protuberant abdomen) and visible herniation ( incisional just to right of midline) GI Palp: Yes Soft to palpation, No Tenderness to palpation present (GI), No Guarding due to palpation present (GI) and No Rebound tenderness present Auscultation: normal bowel sounds Objective Data Vital Signs Vital Signs: Vital Signs - 24 hr 05/18/22 08:00 05/18/22 08:00 05/18/22 12:00 Temperature Pulse Rate 77 74 Respiratory Rate Blood Pressure Pulse Oximetry 95 Oxygen Delivery Nasal Cannula Oxygen Flow Rate 2 05/18/22 15:16 05/18/22 16:00 05/18/22 20:00 Temperature 36.9 C Pulse Rate 81 80 70 Respiratory Rate 18 Blood Pressure 128/46 L Pulse Oximetry 99 Oxygen Delivery Oxygen Flow Rate 05/18/22 20:00 05/18/22 22:00 05/19/22 00:00 Temperature 36.5 C Pulse Rate 70 70 76 Respiratory Rate 18 Blood Pressure 100/34 L Pulse Oximetry 99 100 Oxygen Delivery Nasal Cannula Oxygen Flow Rate 2 05/19/22 04:00 05/19/22 06:00 Temperature 36.5 C Pulse Rate 71 70 Respiratory Rate 18 Blood Pressure 116/46 L Pulse Oximetry 100 Oxygen Delivery Oxygen Flow Rate Intake/Output Intake/Output: Intake & Output 05/16/22 05/17/22 05/18/22 05/19/22 23:59 23:59 23:59 23:59 Intake Total 990 1600 1300 Output Total 700 2050 400 Balance -700 -1060 1200 1300 Meds/Results Medications: Active Medications Generic Name Dose Route Start Last Admin Trade Name Freq PRN Reason Stop Dose Admin Aspirin 81 mg 05/13/22 09:00 05/14/22 08:15 Aspirin 81 Mg Enteric Tablet PO 81 mg DAILY JEFF Administration Clopidogrel Bisulfate 75 mg 05/13/22 09:00 05/14/22 08:15 Clopidogrel Bisulfate 75 Mg Tablet PO 75 mg DAILY JEFF Administration Dextrose 12.5 gm 05/12/22 15:28 05/16/22 11:52 Dextrose 50% 25 Gm/50 Ml Syringe IV PUSH 12.5 gm PRN PRN Administration Hypoglycemia Protocol Glucagon 1 mg 05/12/22 15:28 Glucagon For Inj 1 Mg Vial IM PRN PRN Hypoglycemia Protocol Glucose 15 gm 05/12/22 15:28 05/17/22 11:54 Glucose Oral Gel 15 Gm Of Glucse In 37.5 Gm Tube PO 15 gm PRN PRN Administration Hypoglycemia Protocol Heparin Sodium (Porcine) 5,000 units 05/12/22 21:00 05/15/22 20:59 Heparin Sodium 5,000 Units/Ml Vial SUB-Q 5,000 units Q12HR JEFF Administration Dextrose 1,000 mls @ 100 mls/hr 05/12/22 15:28 Dextrose 5% 1,
[2022-05-19 07:48] LABS: Uric Acid 4.9 mg/dL (3.5-8.5)
[2022-05-19] MEDS: SODIUM CHLORIDE 0.9% IV 1,000 ML 200 ML IV CONT (07:55)
[2022-05-19 08:36] LABS: Glucose Point of Care 80 mg/dl (65-105)
--- NOTE | 2022-05-19 09:02 | PM.PNNEP ---
Progress Note: A&P Assessment and Plan (1) End stage renal disease: Code(s): N18.6 - End stage renal disease Status: Chronic Assessment and Plan: due progression of disease from HTN, DM, cardiorenal syndrome and TITA hemodialysis due tomorrow (2) Hypotension: Code(s): I95.9 - Hypotension, unspecified Status: Acute Assessment and Plan: Blood pressure seems to be doing pretty well today. will take a little bit of fluid off. (3) Nausea, vomiting, and diarrhea: Code(s): R11.2 - Nausea with vomiting, unspecified; R19.7 - Diarrhea, unspecified Status: Acute Assessment and Plan: He feels better. CT scan showed possible distal obstruction NG tube is out. Doing well with clear liquids. (4) Anemia: Code(s): D64.9 - Anemia, unspecified Status: Chronic Assessment and Plan: due to ESRD Epogen with HD Hemoglobin 8.6 today. He may be losing a little blood from his GI process. (5) Diabetes: Code(s): E11.9 - Type 2 diabetes mellitus without complications Status: Chronic Assessment and Plan: On Accu-Cheks and sliding scale insulin per hospitalists. \ (6) Chronic anemia: Code(s): D64.9 - Anemia, unspecified Status: Chronic (7) Volume overload: Code(s): E87.70 - Fluid overload, unspecified Status: Chronic (8) Chronic combined systolic and diastolic heart failure: Code(s): I50.42 - Chronic combined systolic (congestive) and diastolic (congestive) heart failure Status: Chronic Subjective Date/time seen: 05/19/22 14:17 Interval history: Jaime is feeling about the same today. he is passing gas. He ate clear liquids all day yesterday. The patient is on dialysis and tolerating it well. He is getting little bit of fluid off. He was seen at 9:10 a.m. Exam Narrative: General: WD/WN male in NAD Heart: normal S1 and S2; no rub or gallop Lungs: decreased at bases Abdomen: soft, nontender, some distension, moderately active bowel sounds Extremities: no cyanosis or clubbing; trace - 1+ edema Skin: No rash or subcu nodules Objective Data Vital Signs Vital Signs: Vital Signs - 24 hr 05/18/22 15:16 05/18/22 16:00 05/18/22 20:00 Temperature 36.9 C Pulse Rate 81 80 70 Respiratory Rate 18 Blood Pressure 128/46 L Pulse Oximetry 99 Oxygen Delivery Oxygen Flow Rate 05/18/22 20:00 05/18/22 22:00 05/19/22 00:00 Temperature 36.5 C Pulse Rate 70 70 76 Respiratory Rate 18 Blood Pressure 100/34 L Pulse Oximetry 99 100 Oxygen Delivery Nasal Cannula Oxygen Flow Rate 2 05/19/22 04:00 05/19/22 06:00 05/19/22 07:55 Temperature 36.5 C Pulse Rate 71 70 Respiratory Rate 18 Blood Pressure 116/46 L Pulse Oximetry 100 Oxygen Delivery Oxygen Flow Rate 2 05/19/22 07:55 05/19/22 08:05 05/19/22 09:15 Temperature 36.6 C Pulse Rate 59 L 70 70 Respiratory Rate 16 Blood Pressure 108/44 L 93/55 L 109/49 L Pulse Oximetry Oxygen Delivery Oxygen Flow Rate 05/19/22 10:15 05/19/22 08:45 05/19/22 09:45 Temperature Pulse Rate 74 69 73 Respiratory Rate Blood Pressure 100/34 L 103/48 L 111/53 L Pulse Oximetry Oxygen Delivery Oxygen Flow Rate 05/19/22 10:45 05/19/22 08:00 05/19/22 08:00 Temperature Pulse Rate 70 67 Respiratory Rate Blood Pressure 102/35 L Pulse Oximetry 95 Oxygen Delivery Nasal Cannula Oxygen Flow Rate 2 Intake/Output Intake/Output: Intake & Output 05/16/22 05/17/22 05/18/22 05/19/22 23:59 23:59 23:59 23:59 Intake Total 990 1600 1780 Output Total 700 2050 400 Balance -700 -1060 1200 1780 Meds/Results Medications: Active Medications Generic Name Dose Route Start Last Admin Trade Name Freq PRN Reason Stop Dose Admin Aspirin 81 mg 05/13/22 09:00 05/14/22 08:15 Aspirin 81 Mg Enteric Tablet PO 81
--- NOTE | 2022-05-19 09:31 | PCPTNOTE ---
Attempted therapy session, Pt out of room for dialysis. Will continue per POC.
--- NOTE | 2022-05-19 10:30 | PM.IMPN ---
Progress Note: A&P Assessment and Plan (1) End stage renal disease: Code(s): N18.6 - End stage renal disease Status: Chronic Assessment and Plan: Current BUN and creatinine is 26/4.20 Patient is a dialysis patient and goes to dialysis Sunday Dr. Ureña is consulted and will follow Dialysis from 05/15/22 removed 2L Monitor breathing status Trend labs Daily weights (2) Small bowel obstruction: Code(s): K56.609 - Unspecified intestinal obstruction, unspecified as to partial versus complete obstruction Status: Acute Assessment and Plan: Patient has been reporting nausea, vomiting, diarrhea KUB from 05/17/22 Paracentesis ordered, cannot be done until Sunday due to Plavix NG was able to be removed Abd ct showed bowel obstruction in the right lower quadrant, thickened arroyo GS consulted full diet Light fluids for hydration (3) Abdominal ascites: Code(s): R18.8 - Other ascites Status: Acute Assessment and Plan: KUB indicates ascites on the x-ray CT also indicates moderate amount of ascites Abdomen remains firm Paracentesis with diagnostics ordered, should be performed today Trend volume status (4) Pleural effusion: Code(s): J90 - Pleural effusion, not elsewhere classified Status: Acute Assessment and Plan: Moderate left-sided pleural effusion 600 mL was drained on 05/05/2022 Chest xray indicates no improvements of effusion Thoracentesis ordered with diagnostics, will not be able to be obtained due to the plavix Concern about being unilateral Daily weights (5) Hypotension: Code(s): I95.9 - Hypotension, unspecified Status: Acute Assessment and Plan: Patient was noted to be hypotensive upon arrival at 73/50 Current blood pressure is 102/35 Seems that he received albumin and midodrine overnight Hold Entresto, Imdur, carvedilol Trend blood pressure Adjust therapy as indicated (6) Diabetes: Code(s): E11.9 - Type 2 diabetes mellitus without complications Status: Chronic Assessment and Plan: Current glucose is 100 Trend glucose Insulin sliding scale Hypoglycemic protocol Adjust therapy as indicated Accu-Cheks AC and HS Diet advanced to Full liquids (7) CHF (congestive heart failure): Qualifiers: Heart failure chronicity: chronic Heart failure type: unspecified Qualified Code(s): I50.9 - Heart failure, unspecified Code(s): I50.9 - Heart failure, unspecified Status: Acute Assessment and Plan: 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 (9) Cirrhosis: Code(s): K74.60 - Unspecified cirrhosis of liver Status: Acute Assessment and Plan: Trend AST/ALT Ascites present Paracentesis ordered CT showed cirrhosis Time Spent With Patient Time with patient: Greater than 35 minutes Subjective Date/time seen: 05/19/22 10:30 Interval history: 05/19/22 1030 Patient is doing ok. He is currently getting dialysis. He stated that he is able to eat and tolerate food. He is also stating that he is not having any pain, chest pain, shortness of breath, nausea, vomiting
--- NOTE | 2022-05-19 10:30 | P.PNIM_ITS ---
Progress Note: A&P Assessment and Plan (1) End stage renal disease: Code(s): N18.6 - End stage renal disease Status: Chronic Assessment and Plan: * Current BUN and creatinine is 26/4.20 * Patient is a dialysis patient and goes to dialysis Sunday * Dr. Ureña is consulted and will follow * Dialysis from 05/15/22 removed 2L * Monitor breathing status * Trend labs * Daily weights (2) Small bowel obstruction: Code(s): K56.609 - Unspecified intestinal obstruction, unspecified as to partial versus complete obstruction Status: Acute Assessment and Plan: * Patient has been reporting nausea, vomiting, diarrhea * KUB from 05/17/22 * Paracentesis ordered, cannot be done until Sunday due to Plavix * NG was able to be removed * Abd ct showed bowel obstruction in the right lower quadrant, thickened arroyo * GS consulted * full diet * Light fluids for hydration (3) Abdominal ascites: Code(s): R18.8 - Other ascites Status: Acute Assessment and Plan: * KUB indicates ascites on the x-ray * CT also indicates moderate amount of ascites * Abdomen remains firm * Paracentesis with diagnostics ordered, should be performed today * Trend volume status (4) Pleural effusion: Code(s): J90 - Pleural effusion, not elsewhere classified Status: Acute Assessment and Plan: * Moderate left-sided pleural effusion * 600 mL was drained on 05/05/2022 * Chest xray indicates no improvements of effusion * Thoracentesis ordered with diagnostics, will not be able to be obtained due to the plavix * Concern about being unilateral * Daily weights (5) Hypotension: Code(s): I95.9 - Hypotension, unspecified Status: Acute Assessment and Plan: * Patient was noted to be hypotensive upon arrival at 73/50 * Current blood pressure is 102/35 * Seems that he received albumin and midodrine overnight * Hold Entresto, Imdur, carvedilol * Trend blood pressure * Adjust therapy as indicated (6) Diabetes: Code(s): E11.9 - Type 2 diabetes mellitus without complications Status: Chronic Assessment and Plan: * Current glucose is 100 * Trend glucose * Insulin sliding scale * Hypoglycemic protocol * Adjust therapy as indicated * Accu-Cheks AC and HS * Diet advanced to Full liquids (7) CHF (congestive heart failure): Qualifiers: Heart failure chronicity: chronic Heart failure type: unspecified Qualified Code(s): I50.9 - Heart failure, unspecified Code(s): I50.9 - Heart failure, unspecified Status: Acute Assessment and Plan: * 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 * Chest x-ray shows pulmonary edema along with a moderate size pleural effusion * Unable to get dialysis the day of arrival * Dialysis performed on 05/17/22 with 1L removal * Nephrology on board * Daily weights * Hold Entresto and carvedilol due to hypotension * thoracentesis ordered (8) Anemia: Code(s): D64.9 - Anemia, unspecified Status: Chronic Assessment and Plan: * H&H 9.3/31.1 * Baseline appears to be around 8-9 * 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
[2022-05-19 10:55] LABS: Amylase 49 U/L (30-110); Cholesterol 81 mg/dL (0-200); Lactate Dehydrogenase 456 U/L (313-618); Triglycerides 71 mg/dL (<150)
[2022-05-19 12:18] LABS: Glucose Point of Care 69 mg/dl (65-105)
[2022-05-19] MEDS: POTASSIUM CHLORIDE 20 MEQ TABLET 40 MEQ PO (12:25)
--- NOTE | 2022-05-19 15:27 | WPDGICN ---
Assessment and Plan Assessment and plan (1) Cirrhosis: Code(s): K74.60 - Unspecified cirrhosis of liver Status: Acute Assessment and Plan: the etiology is unknown. The patient states that he was told it is probably due to chronic congestive heart failure which seems reasonable. I will obtain hepatitis serology and other studies including ferritin levels. (2) Abdominal ascites: Code(s): R18.8 - Other ascites Status: Acute Assessment and Plan: The patient was going to have a paracentesis today but it was delayed until tomorrow because of his recent anti-platelet therapy;. he will obviously need to stay on diuretics as well. I will begin him on Aldactone (3) Small bowel obstruction: Code(s): K56.609 - Unspecified intestinal obstruction, unspecified as to partial versus complete obstruction Status: Acute Assessment and Plan: this has resolved he is now eating. Apparently this was an ileus which has a.m. stated has resolved. (4) Nausea, vomiting, and diarrhea: Code(s): R11.2 - Nausea with vomiting, unspecified; R19.7 - Diarrhea, unspecified Status: Acute Assessment and Plan: Not complaining of nausea today. (5) End stage renal disease: Code(s): N18.6 - End stage renal disease Status: Chronic Assessment and Plan: Creatinine is 4.2. He is on dialysis 3 times weak. Nephrology has been consulted. GI Consult Note Consult date/time: 05/19/22 15:27 We are asked to see this patient who has end-stage renal disease for which she is on hemodialysis, he has severe congestive heart failure having had a prior 5 vessel bypass. He has been found to have cirrhosis and also has ascites and pleural effusion. His ascites had been tapped about 1 month ago during a previous admission but he has reaccumulated fluid. He states that he has not seen anybody regarding his liver disease but that he did have an appointment to come he believes to our office. He states that there is no family history of liver disease except for an uncle that was an alcoholic. The patient states that he drink alcohol when he was in the [place] but rarely has any now. He has never had hepatitis. On admission he was vomiting but now is able to eat. He states that the vomiting seems to come on when he begins coughing, when he then develops phlegm in his throat and begins to gag. He is not having any such problems today. I reviewed his CT scan which showed: Distal small bowel obstruction, transition point in the right lower quadrant, possibly from adhesion. Multiple mid abdominal small bowel loops have thickened arroyo as can be seen with infection, inflammation, and ischemia. Small left pleural effusion. Large volume ascites. Cirrhosis with portal hypertension. Mediastinal lymphadenopathy small-bowel series was done by NG tube yesterday and is negative for obstruction. HPI: Jaime Morrell is a 76 year old male Review of Systems Review of Systems: All systems reviewed & are unremarkable except as noted in HPI and below FOR[facility]LY [facility] Past Medical History Medical History Abdominal aortic aneurysm Acute on chronic combined systolic and diastolic CHF (congestive heart failure) Arthritis Ascites Carotid stenosis, bilateral Carpal tunnel syndrome Chronic anemia Chronic kidney disease, stage 4 (severe) CKD stage 4 due to type 2 diabetes mellitus COPD (chronic obstructive pulmonary disease) Deep venous thrombosis Essential hypertension Gastroesophageal reflux disease Heart failure with reduced ejection fraction Echo in 07/2021: 1. Technically difficult study with limited views. 2. Moderately reduced LF function with an EF estimated at 30-35% with hypokinesis of the mid to basal anterolateral, inferior, anterior, and basal inferoseptal arroyo with relative sparing of the apex. 3. Mildly increased LV wall thickness. 4. Left atria is
[2022-05-19 18:18] LABS: Glucose Point of Care 90 mg/dl (65-105)
[2022-05-20] VITALS (8 sets, daily range): BP systolic 101–105; BP diastolic 38–49; PULSE 60–84; RESP 14–18; TEMP 36.5–36.6; O2SAT 95–100
[2022-05-20 00:29] LABS: Glucose Point of Care 115 mg/dl (65-105)
[2022-05-20] MEDS: LEVOTHYROXINE SODIUM INJ 100 MCG/5 ML VIAL 25 MCG IV PUSH (06:20)
[2022-05-20 06:47] LABS: Glucose Point of Care 87 mg/dl (65-105)
--- NOTE | 2022-05-20 11:16 | PM.PNNEP ---
Progress Note: A&P Assessment and Plan (1) End stage renal disease: Code(s): N18.6 - End stage renal disease Status: Chronic Assessment and Plan: due progression of disease from HTN, DM, cardiorenal syndrome and TITA hemodialysis due On Sunday. He had dialysis yesterday. will tries more fluid removal on Sunday. His blood pressure has limited this so far. (2) Hypotension: Code(s): I95.9 - Hypotension, unspecified Status: Acute Assessment and Plan: Blood pressure seems to be doing pretty well today. (3) Nausea, vomiting, and diarrhea: Code(s): R11.2 - Nausea with vomiting, unspecified; R19.7 - Diarrhea, unspecified Status: Acute Assessment and Plan: He feels better. CT scan showed possible distal obstruction NG tube is out. Doing well with clear liquids. (4) Anemia: Code(s): D64.9 - Anemia, unspecified Status: Chronic Assessment and Plan: due to ESRD Epogen with HD No labs today He may be losing a little blood from his GI process. (5) Diabetes: Code(s): E11.9 - Type 2 diabetes mellitus without complications Status: Chronic Assessment and Plan: On Accu-Cheks and sliding scale insulin per hospitalists. \ (6) Chronic anemia: Code(s): D64.9 - Anemia, unspecified Status: Chronic Assessment and Plan: Epogen ordered (7) Volume overload: Code(s): E87.70 - Fluid overload, unspecified Status: Chronic Assessment and Plan: try to remove fluid on Sunday (8) Chronic combined systolic and diastolic heart failure: Code(s): I50.42 - Chronic combined systolic (congestive) and diastolic (congestive) heart failure Status: Chronic Assessment and Plan: trying to remove fluid as tolerated Subjective Date/time seen: 05/20/22 11:16 Interval history: Jaime is feeling about the same today. He has some foot pain. He has some swelling which is uncomfortable. He is NPO right now for a procedure but yesterday tolerated his clear liquids all day no nausea or vomiting. He is passing gas Exam Narrative: General: WD/WN male in NAD Heart: normal S1 and S2; no rub or gallop Lungs: fairly clear anteriorly Abdomen: soft, nontender, some distension, moderately active bowel sounds Extremities: no cyanosis or clubbing; trace - 1+ edema Skin: No rash Objective Data Vital Signs Vital Signs: Vital Signs - 24 hr 05/19/22 14:00 05/19/22 12:00 05/19/22 11:35 Temperature 36.3 C L Pulse Rate 75 80 75 Respiratory Rate 18 Blood Pressure 107/38 L 118/55 L Pulse Oximetry 93 Oxygen Delivery Oxygen Flow Rate 05/19/22 11:45 05/19/22 16:00 05/19/22 22:00 Temperature 36.4 C 36.6 C Pulse Rate 77 82 68 Respiratory Rate 16 17 Blood Pressure 114/49 L 106/37 L Pulse Oximetry 90 Oxygen Delivery Oxygen Flow Rate 05/20/22 05:00 05/20/22 08:00 05/20/22 08:00 Temperature 36.5 C Pulse Rate 84 70 Respiratory Rate 18 Blood Pressure 101/49 L Pulse Oximetry 97 95 Oxygen Delivery Nasal Cannula Oxygen Flow Rate 2 Intake/Output Intake/Output: Intake & Output 05/17/22 05/18/22 05/19/22 05/20/22 23:59 23:59 23:59 23:59 Intake Total 990 1600 2500 Output Total 2050 400 2100 Balance -1060 1200 400 Meds/Results Medications: Active Medications Generic Name Dose Route Start Last Admin Trade Name Freq PRN Reason Stop Dose Admin Aspirin 81 mg 05/13/22 09:00 05/14/22 08:15 Aspirin 81 Mg Enteric Tablet PO 81 mg DAILY JEFF Administration Clopidogrel Bisulfate 75 mg 05/13/22 09:00 05/14/22 08:15 Clopidogrel Bisulfate 75 Mg Tablet PO 75 mg DAILY JEFF Administration Dextrose 12.5 gm 05/12/22 15:28 05/16/22 11:52 Dextrose 50% 25 Gm/50 Ml Syringe IV PUSH 12.5 gm PRN PRN Administration Hypoglycemia Protocol Glucagon 1 mg 0
--- NOTE | 2022-05-20 12:18 | P.PNIM_ITS ---
Progress Note: A&P Assessment and Plan (1) End stage renal disease: Code(s): N18.6 - End stage renal disease Status: Chronic Assessment and Plan: * Current BUN and creatinine is 26/4.20 * Patient is a dialysis patient and goes to dialysis Sunday * Dr. Ureña is consulted and will follow * Dialysis from 05/15/22 removed 2L * Monitor breathing status * Trend labs * Daily weights - 05/20/22: Pt. was dialyzed yesterday. He is wearing supplemental oxygen at 2L because it makes him feel better, not because it is required to maintain sats. (2) Small bowel obstruction: Code(s): K56.609 - Unspecified intestinal obstruction, unspecified as to partial versus complete obstruction Status: Resolved Assessment and Plan: * Patient has been reporting nausea, vomiting, diarrhea * KUB from 05/17/22 * Paracentesis ordered, cannot be done until Sunday due to Plavix * NG was able to be removed * Abd ct showed bowel obstruction in the right lower quadrant, thickened arroyo * GS consulted * full diet * Light fluids for hydration - 05/20/22: Resolved SBO per [facility], and they have signed off of the case. Pt. is tolerating po intake. He is having a Paracentesis today secondary to the amount of ascites present. (3) Abdominal ascites: Code(s): R18.8 - Other ascites Status: Acute Assessment and Plan: * KUB indicates ascites on the x-ray * CT also indicates moderate amount of ascites * Abdomen remains firm * Paracentesis with diagnostics ordered, should be performed today * Trend volume status - 05/20/22: Paracentesis today. (4) Pleural effusion: Code(s): J90 - Pleural effusion, not elsewhere classified Status: Acute Assessment and Plan: * Moderate left-sided pleural effusion * 600 mL was drained on 05/05/2022 * Chest xray indicates no improvements of effusion * Thoracentesis ordered with diagnostics, will not be able to be obtained due to the plavix * Concern about being unilateral * Daily weights - 05/20/22: Thoracentesis pending and labs pending. Pt. with unchanged breathing and showing no acute distress. (5) Hypotension: Code(s): I95.9 - Hypotension, unspecified Status: Acute Assessment and Plan: * Patient was noted to be hypotensive upon arrival at 73/50 * Current blood pressure is 102/35 * Seems that he received albumin and midodrine overnight * Hold Entresto, Imdur, carvedilol * Trend blood pressure * Adjust therapy as indicated - 05/20/22: Continue to hold Entresto, Imdur and Coreg as BP is running soft. Nephrology and GI are co-managing along with Hospitalist service. He has not required any further Midodrine or Albumin overnight. (6) Diabetes: Code(s): E11.9 - Type 2 diabetes mellitus without complications Status: Chronic Assessment and Plan: * Current glucose is 100 * Trend glucose * Insulin sliding scale * Hypoglycemic protocol * Adjust therapy as indicated * Accu-Cheks AC and HS * Diet advanced to Full liquids - 05/20/22: Continue current medication regimen. Pt. to advance to Renal diet today after his Paracentesis wait time is over. (7) CHF (congestive heart failure): Qualifiers: Heart failure chronicity: chronic Heart failure type: unspecified Qualified Code(s): I50.9 - Heart failure, unspecified Code(s): I50.9 - Heart failure, unspecified Status: Acute Assessment and Plan
--- NOTE | 2022-05-20 12:18 | PM.IMPN ---
Progress Note: A&P Assessment and Plan (1) End stage renal disease: Code(s): N18.6 - End stage renal disease Status: Chronic Assessment and Plan: Current BUN and creatinine is 26/4.20 Patient is a dialysis patient and goes to dialysis Sunday Dr. Ureña is consulted and will follow Dialysis from 05/15/22 removed 2L Monitor breathing status Trend labs Daily weights - 05/20/22: Pt. was dialyzed yesterday. He is wearing supplemental oxygen at 2L because it makes him feel better, not because it is required to maintain sats. (2) Small bowel obstruction: Code(s): K56.609 - Unspecified intestinal obstruction, unspecified as to partial versus complete obstruction Status: Resolved Assessment and Plan: Patient has been reporting nausea, vomiting, diarrhea KUB from 05/17/22 Paracentesis ordered, cannot be done until Sunday due to Plavix NG was able to be removed Abd ct showed bowel obstruction in the right lower quadrant, thickened arroyo GS consulted full diet Light fluids for hydration - 05/20/22: Resolved SBO per [facility], and they have signed off of the case. Pt. is tolerating po intake. He is having a Paracentesis today secondary to the amount of ascites present. (3) Abdominal ascites: Code(s): R18.8 - Other ascites Status: Acute Assessment and Plan: KUB indicates ascites on the x-ray CT also indicates moderate amount of ascites Abdomen remains firm Paracentesis with diagnostics ordered, should be performed today Trend volume status - 05/20/22: Paracentesis today. (4) Pleural effusion: Code(s): J90 - Pleural effusion, not elsewhere classified Status: Acute Assessment and Plan: Moderate left-sided pleural effusion 600 mL was drained on 05/05/2022 Chest xray indicates no improvements of effusion Thoracentesis ordered with diagnostics, will not be able to be obtained due to the plavix Concern about being unilateral Daily weights - 05/20/22: Thoracentesis pending and labs pending. Pt. with unchanged breathing and showing no acute distress. (5) Hypotension: Code(s): I95.9 - Hypotension, unspecified Status: Acute Assessment and Plan: Patient was noted to be hypotensive upon arrival at 73/50 Current blood pressure is 102/35 Seems that he received albumin and midodrine overnight Hold Entresto, Imdur, carvedilol Trend blood pressure Adjust therapy as indicated - 05/20/22: Continue to hold Entresto, Imdur and Coreg as BP is running soft. Nephrology and GI are co-managing along with Hospitalist service. He has not required any further Midodrine or Albumin overnight. (6) Diabetes: Code(s): E11.9 - Type 2 diabetes mellitus without complications Status: Chronic Assessment and Plan: Current glucose is 100 Trend glucose Insulin sliding scale Hypoglycemic protocol Adjust therapy as indicated Accu-Cheks AC and HS Diet advanced to Full liquids - 05/20/22: Continue current medication regimen. Pt. to advance to Renal diet today after his Paracentesis wait time is over. (7) CHF (congestive heart failure): Qualifiers: Heart failure chronicity: chronic Heart failure type: unspecified Qualified Code(s): I50.9 - Heart failure, unspecified Code(s): I50.9 - Heart failure, unspecified Status: Acute Assessment and Plan: 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 Chest x-ray shows pulmonary edema along with a moderate size pleural effusion Unable to get dialysis the day of arrival Dialysis performed on 05/17/22 with 1L removal Nephrology on board Daily weights Hold Entresto and carvedilol due to hypotension thoracentesis ordered - 05/20/22: Still awaiting Thoracentesis to be performed for Pleural Effusion. Plavix is currently on hold for procedure. (8) Anemia: Code(s): D64
--- NOTE | 2022-05-20 12:48 | PCPTNOTE ---
Attempted patient for treatment this AM, patient was out of room for procedure.
[2022-05-20 13:02] LABS: pH Pleural Fluid 7.489 (7.210-7.500)
[2022-05-20 13:18] LABS: Glucose Point of Care 63 mg/dl (65-105)
[2022-05-20 13:27] LABS: Uric Acid 3.4 mg/dL (3.5-8.5)
[2022-05-20] MEDS: SPIRONOLACTONE 50 MG TABLET PO (14:15)
[2022-05-20 18:33] LABS: Appearance Pleural Fluid Clear (Clear); Color Pleural Fluid Yellow (Colorless); Pleural fluid source Pleural fluid
[2022-05-20 18:35] LABS: Lymphocytes Pleural Fluid 65 %; Monocytes Pleural Fluid 11 %; Neutrophils Pleural Fluid 4 % (0-25)
[2022-05-20 18:36] LABS: Macrophages Pleural Fluid 10 %
[2022-05-20 18:37] LABS: Other Cells Pleural Fluid 10 %
[2022-05-20 18:39] LABS: Source Peritoneal Fluid Peritoneal Fluid
[2022-05-20 18:40] LABS: Appearance Peritoneal Fluid Cloudy (Clear); Color Peritoneal Fluid Yellow (Colorless); Neutrophils Peritoneal Fluid 3 % (0-25)
[2022-05-20 18:41] LABS: Eosinophils Peritoneal Fluid 7 %; Lymphocytes Peritoneal Fluid 9 %; Macrophages Peritoneal Fluid 75 %; Monocytes Peritoneal Fluid 6 %
[2022-05-21] VITALS (10 sets, daily range): BP systolic 99–115; BP diastolic 40–44; PULSE 63–82; RESP 16–18; TEMP 36.3–36.6; O2SAT 95–100
[2022-05-21 01:06] LABS: Glucose Point of Care 127 mg/dl (65-105)
[2022-05-21 06:02] LABS: Glucose Point of Care 111 mg/dl (65-105)
[2022-05-21] MEDS: LEVOTHYROXINE SODIUM INJ 100 MCG/5 ML VIAL 25 MCG IV PUSH (06:05)
[2022-05-21 06:48] LABS: Basophils Percent Auto 0.4 % (0.2-1.2); Eosinophils Absolute Auto 0.3 K/mm3 (0-0.3); Eosinophils Percent Auto 2.8 % (0-4.4); Hematocrit 30.9 % (42.0-52.0); Hemoglobin 8.9 g/dL (14.0-18.0); Immature Granulocyte Absolute 0.04 K/mm3 (0.00-0.031); Immature Granulocyte Percent A 0.4 % (0-0.5); Immature Platelet Fraction Pct 6.7 % (0.9-11.2); Lymphocytes Absolute Auto 0.97 K/mm3 (0.9-3.2); Lymphocytes Percent Auto 10.9 % (18.3-44.2); Mean Corpuscular HGB Conc 28.8 g/dl (32-36); Mean Corpuscular Hemoglobin 28.9 pg (26-34); Mean Corpuscular Volume 100.3 fl (80-100); Mean Platelet Volume 11.5 fl (7.4-10.4); Monocytes Percent Auto 11.3 % (2.6-8.5); Neutrophils Absolute Auto 6.6 K/mm3 (1.3-6.7); Neutrophils Percent Auto 74.2 % (45.5-73.1); Platelet Count Result 120 k/mm3 (150-375); Red Blood Count 3.08 M/mm3 (4.6-6.20); Red Cell Distribution Width 16.7 % (11.5-14.5); White Blood Count 8.9 K/mm3 (4.5-10.0)
[2022-05-21 07:00] LABS: Alanine Aminotransferase 11 U/L (6-50); Albumin Level 2.9 g/dL (3.5-5.1); Alkaline Phosphatase 84 U/L (38-126); Anion Gap 7 mmol/L (8-16); Aspartate Amino Transferase 24 U/L (17-59); Bilirubin,Total 0.4 mg/dL (0.2-1.3); Blood Urea Nitrogen 36 mg/dL (9-20); Calcium 7.7 mg/dL (8.4-10.2); Carbon Dioxide 33 mmol/L (22-30); Chloride 93 mmol/L (98-107); Estimated CRCL calculation 15 ml/min; Estimated Glomerular Filt Rate 16; Glucose 85 mg/dL (65-110); Magnesium 1.8 mg/dL (1.6-2.3); Phosphorus 3.5 mg/dL (2.5-4.5); Potassium 3.9 mmol/L (3.4-5.0); Sodium 133 mmol/L (137-145)
[2022-05-21 07:58] LABS: Anisocytosis 1+ (NORMAL); Hypochromasia 1+ (NORMAL); Platelet Estimate Decreased (Adequate)
[2022-05-21 08:11] LABS: Glucose Point of Care 103 mg/dl (65-105)
[2022-05-21] MEDS: SPIRONOLACTONE 50 MG TABLET PO (08:24)
--- NOTE | 2022-05-21 10:00 | P.PNIM_ITS ---
Progress Note: A&P Assessment and Plan (1) End stage renal disease: Code(s): N18.6 - End stage renal disease Status: Chronic Assessment and Plan: * Current BUN and creatinine is 26/4.20 * Patient is a dialysis patient and goes to dialysis Sunday * Dr. Ureña is consulted and will follow * Dialysis from 05/15/22 removed 2L * Monitor breathing status * Trend labs * Daily weights - 05/20/22: Pt. was dialyzed yesterday. He is wearing supplemental oxygen at 2L because it makes him feel better, not because it is required to maintain sats. - 05/21/22: Pt. continues to wear oxygen as a comfort, not a need as he is now maintaining oxygen saturations of 100% since he underwent Para and thoracentesis yesterday. He is due for dialysis tomorrow. He is still edematous peripherally in the BLE, L>R, and he will also have a venous doppler performed as he complains of pain.Nephrology managing dialysis. (2) Small bowel obstruction: Code(s): K56.609 - Unspecified intestinal obstruction, unspecified as to partial versus complete obstruction Status: Resolved Assessment and Plan: * Patient has been reporting nausea, vomiting, diarrhea * KUB from 05/17/22 * Paracentesis ordered, cannot be done until Sunday due to Plavix * NG was able to be removed * Abd ct showed bowel obstruction in the right lower quadrant, thickened arroyo * GS consulted * full diet * Light fluids for hydration - 05/20/22: Resolved SBO per [facility], and they have signed off of the case. Pt. is tolerating po intake. He is having a Paracentesis today secondary to the amount of ascites present. - 05/21/22: Pt. tolerated solid foods without difficulty. (3) Abdominal ascites: Code(s): R18.8 - Other ascites Status: Acute Assessment and Plan: * KUB indicates ascites on the x-ray * CT also indicates moderate amount of ascites * Abdomen remains firm * Paracentesis with diagnostics ordered, should be performed today * Trend volume status - 05/20/22: Paracentesis today. - 05/21/22: 3800 ml of ascitic fluid removed yesterday without any complications. Will need ASA and Plavix restarted tomorrow. (4) Pleural effusion: Code(s): J90 - Pleural effusion, not elsewhere classified Status: Acute Assessment and Plan: * Moderate left-sided pleural effusion * 600 mL was drained on 05/05/2022 * Chest xray indicates no improvements of effusion * Thoracentesis ordered with diagnostics, will not be able to be obtained due to the plavix * Concern about being unilateral * Daily weights - 05/20/22: Thoracentesis pending and labs pending. Pt. with unchanged breathing and showing no acute distress. - 05/21/22: 500 ml of pleural fluid was removed yesterday without difficulty. Breathing has improved and the patient's oxygenation has also improved. Will need ASA and Plavix restarted tomorrow. (5) Hypotension: Code(s): I95.9 - Hypotension, unspecified Status: Acute Assessment and Plan: * Patient was noted to be hypotensive upon arrival at 73/50 * Current blood pressure is 102/35 * Seems that he received albumin and midodrine overnight * Hold Entresto, Imdur, carvedilol * Trend blood pressure * Adjust therapy as indicated - 05/20/22: Continue to hold Entresto, Imdur and Coreg as BP is running soft. Nephrology and GI are co-managing along with Hospitalist service. He has not required any further Midodrine or Albumin overnight. - 05/21/22: Continue to hold Entresto, Imdur and Coreg as blood pressure over the past
--- NOTE | 2022-05-21 10:00 | PM.IMPN ---
Progress Note: A&P Assessment and Plan (1) End stage renal disease: Code(s): N18.6 - End stage renal disease Status: Chronic Assessment and Plan: Current BUN and creatinine is 26/4.20 Patient is a dialysis patient and goes to dialysis Sunday Dr. Ureña is consulted and will follow Dialysis from 05/15/22 removed 2L Monitor breathing status Trend labs Daily weights - 05/20/22: Pt. was dialyzed yesterday. He is wearing supplemental oxygen at 2L because it makes him feel better, not because it is required to maintain sats. - 05/21/22: Pt. continues to wear oxygen as a comfort, not a need as he is now maintaining oxygen saturations of 100% since he underwent Para and thoracentesis yesterday. He is due for dialysis tomorrow. He is still edematous peripherally in the BLE, L>R, and he will also have a venous doppler performed as he complains of pain.Nephrology managing dialysis. (2) Small bowel obstruction: Code(s): K56.609 - Unspecified intestinal obstruction, unspecified as to partial versus complete obstruction Status: Resolved Assessment and Plan: Patient has been reporting nausea, vomiting, diarrhea KUB from 05/17/22 Paracentesis ordered, cannot be done until Sunday due to Plavix NG was able to be removed Abd ct showed bowel obstruction in the right lower quadrant, thickened arroyo GS consulted full diet Light fluids for hydration - 05/20/22: Resolved SBO per [facility], and they have signed off of the case. Pt. is tolerating po intake. He is having a Paracentesis today secondary to the amount of ascites present. - 05/21/22: Pt. tolerated solid foods without difficulty. (3) Abdominal ascites: Code(s): R18.8 - Other ascites Status: Acute Assessment and Plan: KUB indicates ascites on the x-ray CT also indicates moderate amount of ascites Abdomen remains firm Paracentesis with diagnostics ordered, should be performed today Trend volume status - 05/20/22: Paracentesis today. - 05/21/22: 3800 ml of ascitic fluid removed yesterday without any complications. Will need ASA and Plavix restarted tomorrow. (4) Pleural effusion: Code(s): J90 - Pleural effusion, not elsewhere classified Status: Acute Assessment and Plan: Moderate left-sided pleural effusion 600 mL was drained on 05/05/2022 Chest xray indicates no improvements of effusion Thoracentesis ordered with diagnostics, will not be able to be obtained due to the plavix Concern about being unilateral Daily weights - 05/20/22: Thoracentesis pending and labs pending. Pt. with unchanged breathing and showing no acute distress. - 05/21/22: 500 ml of pleural fluid was removed yesterday without difficulty. Breathing has improved and the patient's oxygenation has also improved. Will need ASA and Plavix restarted tomorrow. (5) Hypotension: Code(s): I95.9 - Hypotension, unspecified Status: Acute Assessment and Plan: Patient was noted to be hypotensive upon arrival at 73/50 Current blood pressure is 102/35 Seems that he received albumin and midodrine overnight Hold Entresto, Imdur, carvedilol Trend blood pressure Adjust therapy as indicated - 05/20/22: Continue to hold Entresto, Imdur and Coreg as BP is running soft. Nephrology and GI are co-managing along with Hospitalist service. He has not required any further Midodrine or Albumin overnight. - 05/21/22: Continue to hold Entresto, Imdur and Coreg as blood pressure over the past 24 hours has ranged 100-105 systolic and in the 40s diastolic. Appreciate Nephrology's recommendation on whether or not patient would be a good candidate for another dose of albumin and or midodrine given that he has dialysis tomorrow and does still appear to be fluid overloaded. (6) Diabetes: Code(s): E11.9 - Type 2 diabetes mellitus without complications Status: Chronic Assessment and Plan: Cu
[2022-05-21 11:45] LABS: Glucose Point of Care 125 mg/dl (65-105)
--- NOTE | 2022-05-21 12:20 | PM.PNNEP ---
Progress Note: A&P Assessment and Plan (1) End stage renal disease: Code(s): N18.6 - End stage renal disease Status: Chronic Assessment and Plan: due progression of disease from HTN, DM, cardiorenal syndrome and TITA He has little bit of swelling. Will do another treatment tomorrow. Remove fluid as tolerated. (2) Hypotension: Code(s): I95.9 - Hypotension, unspecified Status: Acute Assessment and Plan: Blood pressure seems to be doing pretty well lately (3) Nausea, vomiting, and diarrhea: Code(s): R11.2 - Nausea with vomiting, unspecified; R19.7 - Diarrhea, unspecified Status: Acute Assessment and Plan: He feels better. CT scan showed possible distal obstruction NG tube is out. Doing well with regular diet now. (4) Anemia: Code(s): D64.9 - Anemia, unspecified Status: Chronic Assessment and Plan: due to ESRD Epogen with HD on Sunday Hemoglobin up and down around 9. (5) Diabetes: Code(s): E11.9 - Type 2 diabetes mellitus without complications Status: Chronic Assessment and Plan: On Accu-Cheks and sliding scale insulin per hospitalists. \ (6) Chronic anemia: Code(s): D64.9 - Anemia, unspecified Status: Chronic Assessment and Plan: Epogen ordered with dialysis (7) Volume overload: Code(s): E87.70 - Fluid overload, unspecified Status: Chronic Assessment and Plan: try to remove fluid on Sunday (8) Chronic combined systolic and diastolic heart failure: Code(s): I50.42 - Chronic combined systolic (congestive) and diastolic (congestive) heart failure Status: Chronic Assessment and Plan: trying to remove fluid as tolerated Subjective Date/time seen: 05/21/22 12:20 Interval history: Jaime is feeling about the same today. He had a regular breakfast and tolerated it well. Exam Narrative: General: WD/WN male in NAD Heart: normal S1 and S2; no rub or gallop Lungs: Clear to auscultation Abdomen: soft, nontender, some distension, moderately active bowel sounds Extremities: no cyanosis or clubbing; trace - 1+ edema Skin: No rash or subQ nodules Objective Data Vital Signs Vital Signs: Vital Signs - 24 hr 05/20/22 14:16 05/20/22 14:00 05/20/22 20:00 Temperature 36.6 C Pulse Rate 60 81 Respiratory Rate 14 Blood Pressure 103/38 L Pulse Oximetry 95 98 Oxygen Delivery Nasal Cannula Oxygen Flow Rate 2 05/20/22 22:24 05/20/22 22:00 05/21/22 00:00 Temperature 36.5 C Pulse Rate 76 77 Respiratory Rate 18 Blood Pressure 105/40 L Pulse Oximetry 96 100 Oxygen Delivery Nasal Cannula Oxygen Flow Rate 2 05/21/22 04:00 05/21/22 06:00 05/21/22 08:00 Temperature 36.6 C Pulse Rate 69 65 Respiratory Rate 18 Blood Pressure 100/40 L Pulse Oximetry 100 100 Oxygen Delivery Nasal Cannula Oxygen Flow Rate 2 Intake/Output Intake/Output: Intake & Output 05/18/22 05/19/22 05/20/22 05/21/22 23:59 23:59 23:59 23:59 Intake Total 1600 2500 240 200 Output Total 400 2100 4300 0 Balance 1200 400 -4060 200 Meds/Results Medications: Active Medications Generic Name Dose Route Start Last Admin Trade Name Freq PRN Reason Stop Dose Admin Aspirin 81 mg 05/13/22 09:00 05/14/22 08:15 Aspirin 81 Mg Enteric Tablet PO 81 mg DAILY JEFF Administration Clopidogrel Bisulfate 75 mg 05/13/22 09:00 05/14/22 08:15 Clopidogrel Bisulfate 75 Mg Tablet PO 75 mg DAILY JEFF Administration Dextrose 12.5 gm 05/12/22 15:28 05/16/22 11:52 Dextrose 50% 25 Gm/50 Ml Syringe IV PUSH 12.5 gm PRN PRN Administration Hypoglycemia Protocol Epoetin Norberto-epbx 10,000 units 05/22/22 11:18 Epoetin Norberto-Epbx 10,000 Units/Ml Vial IV PUSH MOWEFR JEFF Glucagon 1 mg 05/12/22 15:28 Glucagon For Inj 1 Mg Vial IM PRN PRN
[2022-05-21] MEDS: APIXABAN 5 MG TABLET 10 MG PO ×2 (15:41→20:26)
[2022-05-21] MEDS: DEXTROSE 5%/LACTATED RINGERS 1,000 ML 40 ML IV CONT (15:43)
[2022-05-21 16:45] LABS: Glucose Point of Care 114 mg/dl (65-105)
[2022-05-22] VITALS (22 sets, daily range): BP systolic 85–120; BP diastolic 30–61; PULSE 64–86; RESP 16–18; TEMP 36.1–37; O2SAT 97–100
[2022-05-22 00:32] LABS: Glucose Point of Care 107 mg/dl (65-105)
[2022-05-22] MEDS: LEVOTHYROXINE SODIUM INJ 100 MCG/5 ML VIAL 25 MCG IV PUSH (05:44)
[2022-05-22 05:48] LABS: Glucose Point of Care 109 mg/dl (65-105)
[2022-05-22 06:38] LABS: Basophils Percent Auto 0.3 % (0.2-1.2); Eosinophils Absolute Auto 0.4 K/mm3 (0-0.3); Eosinophils Percent Auto 5.2 % (0-4.4); Hemoglobin 8.6 g/dL (14.0-18.0); Immature Granulocyte Absolute 0.03 K/mm3 (0.00-0.031); Immature Granulocyte Percent A 0.4 % (0-0.5); Immature Platelet Fraction Pct 6.7 % (0.9-11.2); Lymphocytes Absolute Auto 0.81 K/mm3 (0.9-3.2); Lymphocytes Percent Auto 10.8 % (18.3-44.2); Mean Corpuscular HGB Conc 29.7 g/dl (32-36); Mean Corpuscular Hemoglobin 29.2 pg (26-34); Mean Corpuscular Volume 98.3 fl (80-100); Mean Platelet Volume 11.6 fl (7.4-10.4); Monocytes Absolute Auto 0.9 K/mm3 (0.1-0.6); Monocytes Percent Auto 11.6 % (2.6-8.5); Neutrophils Absolute Auto 5.4 K/mm3 (1.3-6.7); Neutrophils Percent Auto 71.7 % (45.5-73.1); Platelet Count Result 123 k/mm3 (150-375); Red Blood Count 2.95 M/mm3 (4.6-6.20); Red Cell Distribution Width 16.3 % (11.5-14.5); White Blood Count 7.5 K/mm3 (4.5-10.0)
[2022-05-22 06:51] LABS: Alanine Aminotransferase 14 U/L (6-50); Albumin Level 2.6 g/dL (3.5-5.1); Alkaline Phosphatase 87 U/L (38-126); Anion Gap 5 mmol/L (8-16); Aspartate Amino Transferase 29 U/L (17-59); Bilirubin,Total 0.2 mg/dL (0.2-1.3); Blood Urea Nitrogen 49 mg/dL (9-20); Calcium 7.7 mg/dL (8.4-10.2); Carbon Dioxide 33 mmol/L (22-30); Chloride 93 mmol/L (98-107); Estimated CRCL calculation 12 ml/min; Estimated Glomerular Filt Rate 12; Glucose 101 mg/dL (65-110); Magnesium 1.8 mg/dL (1.6-2.3); Potassium 4.1 mmol/L (3.4-5.0); Sodium 131 mmol/L (137-145)
[2022-05-22 08:09] LABS: Hypochromasia 1+ (NORMAL)
[2022-05-22] MEDS: APIXABAN 5 MG TABLET 10 MG PO ×2 (08:36→20:45)
[2022-05-22] MEDS: CLOPIDOGREL BISULFATE 75 MG TABLET PO (08:36)
[2022-05-22] MEDS: ASPIRIN 81 MG ENTERIC TABLET PO (08:37)
[2022-05-22] MEDS: SPIRONOLACTONE 50 MG TABLET PO (08:37)
--- NOTE | 2022-05-22 10:58 | PCPTNOTE ---
The patient treatment was not able to be completed due to patient out of room for dialysis. Will plan to continue treatment per plan of care.
--- NOTE | 2022-05-22 11:04 | P.PNNP_ITS ---
Progress Note: A&P Assessment and Plan (1) End stage renal disease: Code(s): N18.6 - End stage renal disease Status: Chronic Assessment and Plan: * due progression of disease from HTN, DM, cardiorenal syndrome and TITA * HD today and continue M// outpatient dialysis schedule * remove fluid as tolerated * follow electrolytes and clearance as well (2) Hypotension: Code(s): I95.9 - Hypotension, unspecified Status: Acute Assessment and Plan: * chronic issue at baseline * likely secondary to known cardiomyopathy * follow trend of hemodynamics (3) Chronic combined systolic and diastolic heart failure: Code(s): I50.42 - Chronic combined systolic (congestive) and diastolic (congestive) heart failure Status: Chronic Assessment and Plan: * fluid removal as tolerated with dialysis to acheive euvolemia * continue ongoing medical management as well (4) Nausea, vomiting, and diarrhea: Code(s): R11.2 - Nausea with vomiting, unspecified; R19.7 - Diarrhea, unspecified Status: Acute Assessment and Plan: * clinical improvement at this time * tolerating oral intake * symptoms presumably due to distal small bowel obstruction as noted by CT scan * continue supportive care (5) Anemia: Code(s): D64.9 - Anemia, unspecified Status: Chronic Assessment and Plan: * due to ESRD * Epogen with HD * follow trend of H/H (6) Diabetes: Code(s): E11.9 - Type 2 diabetes mellitus without complications Status: Chronic Assessment and Plan: * follow accuchecks Will continue to follow. Subjective Date/time seen: 05/22/22 11:04 Chart reviewed since last seen - assuming care from Dr. Strong, tlolerating dialysis treatment at the time of my visit (seen on HD at ~ 10:35 AM); no apparent distress voiced; eating and drinking okay; no issues/events overnight or earlier this AM. Exam Narrative: General: WD/WN male in NAD Heart: normal S1 and S2; no rub or gallop Lungs: Clear to auscultation Abdomen: soft, nontender, mild distension, + bowel sounds Extremities: no cyanosis or clubbing; trace - 1+ edema Skin: warm and dry Objective Data Vital Signs Vital Signs: Vital Signs Temp Pulse Resp BP Pulse Ox O2 Del Method O2 Flow Rate 05/22/22 11:00 75 100/46 L 05/22/22 10:40 74 92/47 L 05/22/22 10:20 76 100/48 L 05/22/22 09:50 36.7 C 73 16 99/48 L 05/22/22 09:59 74 100/53 L 05/22/22 08:00 64 05/22/22 08:00 98 Room Air 05/22/22 06:00 36.1 C L 66 16 93/60 L 100 05/22/22 04:00 67 05/22/22 00:00 74 05/21/22 22:00 36.4 C 64 16 115/44 L 100 05/21/22 20:00 73 05/21/22 16:00 68 05/21/22 12:00 82 05/21/22 14:00 36.3 C L 73 16 99/43 L 100 05/21/22 14:29 95 Nasal Cannula 2 Intake/Output Intake/Output: Intake & Output 05/19/22 05/20/22 05/21/22 05/22/22 23:59 23:59 23:59 23:59 Intake Total 2500 1240 780 240 Output Total 2100 4300 0 100 Balance 400 -3060 780 140 Meds/Re
--- NOTE | 2022-05-22 11:04 | PM.PNNEP ---
Progress Note: A&P Assessment and Plan (1) End stage renal disease: Code(s): N18.6 - End stage renal disease Status: Chronic Assessment and Plan: due progression of disease from HTN, DM, cardiorenal syndrome and TITA HD today and continue M/W/F outpatient dialysis schedule remove fluid as tolerated follow electrolytes and clearance as well (2) Hypotension: Code(s): I95.9 - Hypotension, unspecified Status: Acute Assessment and Plan: chronic issue at baseline likely secondary to known cardiomyopathy follow trend of hemodynamics (3) Chronic combined systolic and diastolic heart failure: Code(s): I50.42 - Chronic combined systolic (congestive) and diastolic (congestive) heart failure Status: Chronic Assessment and Plan: fluid removal as tolerated with dialysis to acheive euvolemia continue ongoing medical management as well (4) Nausea, vomiting, and diarrhea: Code(s): R11.2 - Nausea with vomiting, unspecified; R19.7 - Diarrhea, unspecified Status: Acute Assessment and Plan: clinical improvement at this time tolerating oral intake symptoms presumably due to distal small bowel obstruction as noted by CT scan continue supportive care (5) Anemia: Code(s): D64.9 - Anemia, unspecified Status: Chronic Assessment and Plan: due to ESRD Epogen with HD follow trend of H/H (6) Diabetes: Code(s): E11.9 - Type 2 diabetes mellitus without complications Status: Chronic Assessment and Plan: follow accuchecks Will continue to follow. Subjective Date/time seen: 05/22/22 11:04 Chart reviewed since last seen - assuming care from Dr. Strong, tlolerating dialysis treatment at the time of my visit (seen on HD at ~ 10:35 AM); no apparent distress voiced; eating and drinking okay; no issues/events overnight or earlier this AM. Exam Narrative: General: WD/WN male in NAD Heart: normal S1 and S2; no rub or gallop Lungs: Clear to auscultation Abdomen: soft, nontender, mild distension, + bowel sounds Extremities: no cyanosis or clubbing; trace - 1+ edema Skin: warm and dry Objective Data Vital Signs Vital Signs: Vital Signs Temp Pulse Resp BP Pulse Ox O2 Del Method O2 Flow Rate 05/22/22 11:00 75 100/46 L 05/22/22 10:40 74 92/47 L 05/22/22 10:20 76 100/48 L 05/22/22 09:50 36.7 C 73 16 99/48 L 05/22/22 09:59 74 100/53 L 05/22/22 08:00 64 05/22/22 08:00 98 Room Air 05/22/22 06:00 36.1 C L 66 16 93/60 L 100 05/22/22 04:00 67 05/22/22 00:00 74 05/21/22 22:00 36.4 C 64 16 115/44 L 100 05/21/22 20:00 73 05/21/22 16:00 68 05/21/22 12:00 82 05/21/22 14:00 36.3 C L 73 16 99/43 L 100 05/21/22 14:29 95 Nasal Cannula 2 Intake/Output Intake/Output: Intake & Output 05/19/22 05/20/22 05/21/22 05/22/22 23:59 23:59 23:59 23:59 Intake Total 2500 1240 780 240 Output Total 2100 4300 0 100 Balance 400 -3060 780 140 Meds/Results Medications: Active Medications Generic Name Dose Route Start Last Admin Trade Name Freq PRN Reason Stop Dose Admin Apixaban 10 mg 05/21/22 15:15 05/22/22 08:36 Apixaban 5 Mg Tablet PO 10 mg Q12HR JEFF Administration Aspirin 81 mg 05/13/22 09:00 05/22/22 08:37 Aspirin 81 Mg Enteric Tablet PO 81 mg DAILY JEFF Administration Clopidogrel Bisulfate 75 mg 05/13/22 09:00 05/22/22 08:36 Clopidogrel Bisulfate 75 Mg Tablet PO 75 mg DAILY JEFF Administration Dextrose 12.5 gm 05/12/22 15:28 05/16/22 11:52 Dextrose 50% 25 Gm/50 Ml Syringe IV PUSH 12.5 gm PRN PRN Administration Hypoglycemia Protocol Epoetin Norberto-epbx 10,000 units 05/22/22 11:18 Epoetin Norberto-Epbx 10,000 Units/Ml Vial IV PUSH MOWEFR JEFF Glucagon 1 mg 05/12/22 15:28 Glucagon For Inj 1 Mg Vial IM
[2022-05-22 11:30] LABS: Glucose Point of Care 94 mg/dl (65-105)
[2022-05-22] MEDS: EPOETIN ALFA-EPBX 10,000 UNITS/ML VIAL 10000 UNITS IV PUSH (11:59)
--- NOTE | 2022-05-22 12:54 | PCOTNOTE ---
Patient unavailable, in dialysis. Will continue OT per plan of care.
--- NOTE | 2022-05-22 13:37 | PCPTNOTE ---
The patient treatment was not able to be completed on 05/22/2022 due to patient in dialysis. Will plan to continue treatment per plan of care.
--- NOTE | 2022-05-22 14:47 | PCNWS ---
Weekly nutritional screen. Patient is tolerating current diet with adequate intake. No weight loss reported. No nutritional needs at this time. Pt is eating 85% of his meals and does not report any recent wt loss, agree with diet orders.
--- NOTE | 2022-05-22 15:21 | PCNSR ---
On 05/22/22, the student, Charisma Payne, provided care and completed [facility] documentation on this patient. I have reviewed the student's documentation and agree with the findings.
--- NOTE | 2022-05-22 15:45 | P.PNIM_ITS ---
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 * Trend labs * Daily weights * He underwent HD today. He is currently hypotensive. (2) Small bowel obstruction: Code(s): K56.609 - Unspecified intestinal obstruction, unspecified as to partial versus complete obstruction Status: Resolved Assessment and Plan: Patient's nausea and vomiting have resolved. - 05/20/22: Resolved SBO per [facility], and they have signed off of the case. Pt. is tolerating po intake. He is having a Paracentesis today secondary to the amount of ascites present. He continues to tolerate PO intake. (3) Abdominal ascites: Code(s): R18.8 - Other ascites Status: Acute Assessment and Plan: * KUB indicates ascites on the x-ray * CT also indicates moderate amount of ascites * Abdomen remains firm * Paracentesis with diagnostics ordered, should be performed today * Trend volume status - 05/20/22: Paracentesis. - 05/21/22: 3800 ml of ascitic fluid removed yesterday without any complications. Will need ASA and Plavix restarted tomorrow. (4) Pleural effusion: Code(s): J90 - Pleural effusion, not elsewhere classified Status: Acute Assessment and Plan: * Moderate left-sided pleural effusion * 600 mL was drained on 05/05/2022 * Thoracentesis w/ 500ml pleural fluid removed on 05/20. * Patient saturating well on room air. * Pleural fluid showed no organisms, negative acid fast bacilli. * Pending pathology. (5) Hypotension: Code(s): I95.9 - Hypotension, unspecified Status: Acute Assessment and Plan: * Patient was noted to be hypotensive upon arrival at 73/50 * Current blood pressure is 110/49 * Patient started on spironolactone by GI. * Hold Entresto, Imdur, carvedilol * Trend blood pressure * Adjust therapy as indicated (6) Diabetes: Code(s): E11.9 - Type 2 diabetes mellitus without complications Status: Chronic Assessment and Plan: * Current glucose is 99 * Trend glucose * Insulin sliding scale * Hypoglycemic protocol * Adjust therapy as indicated * Accu-Cheks AC and HS (7) CHF (congestive heart failure): Qualifiers: Heart failure chronicity: chronic Heart failure type: unspecified Qualified Code(s): I50.9 - Heart failure, unspecified Code(s): I50.9 - Heart failure, unspecified Status: Acute Assessment and Plan: * 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 * Nephrology is managing fluid overload with dialysis. * Daily weights (160 today, 158 yesterday) * Continue to hold Entresto and carvedilol due to hypotension * thoracentesis ordered, and pathology is pending. no bacterial growth thus far. * Patient restarted on ASA/ Plavix. (8) Anemia: Code(s): D64.9 - Anemia, unspecified Status: Chronic Assessment and Plan: * H&H 8.6 (9.3)/ 29.0 (31.1), and stable, chronic. * Baseline appears to be around 8-9 * 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 (9) Cirrhosis:
--- NOTE | 2022-05-22 15:45 | PM.IMPN ---
Progress Note: A&P Assessment and Plan (1) End stage renal disease: Code(s): N18.6 - End stage renal disease Status: Chronic Assessment and Plan: Current BUN and creatinine is 26/4.20 Patient is a dialysis patient and goes to dialysis Sunday Dr. Ureña is managing HD. Trend labs Daily weights He underwent HD today. He is currently hypotensive. (2) Small bowel obstruction: Code(s): K56.609 - Unspecified intestinal obstruction, unspecified as to partial versus complete obstruction Status: Resolved Assessment and Plan: Patient's nausea and vomiting have resolved. - 05/20/22: Resolved SBO per [facility], and they have signed off of the case. Pt. is tolerating po intake. He is having a Paracentesis today secondary to the amount of ascites present. He continues to tolerate PO intake. (3) Abdominal ascites: Code(s): R18.8 - Other ascites Status: Acute Assessment and Plan: KUB indicates ascites on the x-ray CT also indicates moderate amount of ascites Abdomen remains firm Paracentesis with diagnostics ordered, should be performed today Trend volume status - 05/20/22: Paracentesis. - 05/21/22: 3800 ml of ascitic fluid removed yesterday without any complications. Will need ASA and Plavix restarted tomorrow. (4) Pleural effusion: Code(s): J90 - Pleural effusion, not elsewhere classified Status: Acute Assessment and Plan: Moderate left-sided pleural effusion 600 mL was drained on 05/05/2022 Thoracentesis w/ 500ml pleural fluid removed on 05/20. Patient saturating well on room air. Pleural fluid showed no organisms, negative acid fast bacilli. Pending pathology. (5) Hypotension: Code(s): I95.9 - Hypotension, unspecified Status: Acute Assessment and Plan: Patient was noted to be hypotensive upon arrival at 73/50 Current blood pressure is 110/49 Patient started on spironolactone by GI. Hold Entresto, Imdur, carvedilol Trend blood pressure Adjust therapy as indicated (6) Diabetes: Code(s): E11.9 - Type 2 diabetes mellitus without complications Status: Chronic Assessment and Plan: Current glucose is 99 Trend glucose Insulin sliding scale Hypoglycemic protocol Adjust therapy as indicated Accu-Cheks AC and HS (7) CHF (congestive heart failure): Qualifiers: Heart failure chronicity: chronic Heart failure type: unspecified Qualified Code(s): I50.9 - Heart failure, unspecified Code(s): I50.9 - Heart failure, unspecified Status: Acute Assessment and Plan: 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 Nephrology is managing fluid overload with dialysis. Daily weights (160 today, 158 yesterday) Continue to hold Entresto and carvedilol due to hypotension thoracentesis ordered, and pathology is pending. no bacterial growth thus far. Patient restarted on ASA/ Plavix. (8) Anemia: Code(s): D64.9 - Anemia, unspecified Status: Chronic Assessment and Plan: H&H 8.6 (9.3)/ 29.0 (31.1), and stable, chronic. Baseline appears to be around 8-9 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 (9) Cirrhosis: Code(s): K74.60 - Unspecified cirrhosis of liver Status: Acute Assessment and Plan: Trend AST/ALT Ascites present Paracentesis performed on 05/20, pathology is pending. CT showed cirrhosis Hepatitis Panel negative. (10) DVT (deep venous thrombosis): Code(s): I82.409 - Acute embolism and thrombosis of unspecified deep veins of unspecified lower extremity Status: Acute Assessment and Plan: Venous duplex on 05/21 showed right peroneal DVT. Pt started on apixaban. Will
[2022-05-22 16:27] LABS: Glucose Point of Care 113 mg/dl (65-105)
[2022-05-23] VITALS (8 sets, daily range): BP systolic 104–117; BP diastolic 38–42; PULSE 71–86; RESP 14–18; TEMP 36.7–36.8; O2SAT 97–98
[2022-05-23] MEDS: DEXTROSE 5%/LACTATED RINGERS 1,000 ML 40 ML IV CONT (02:23)
[2022-05-23] MEDS: LEVOTHYROXINE SODIUM INJ 100 MCG/5 ML VIAL 25 MCG IV PUSH (05:40)
[2022-05-23 05:49] LABS: Glucose Point of Care 106 mg/dl (65-105)
[2022-05-23 08:17] LABS: Glucose Point of Care 99 mg/dl (65-105)
[2022-05-23] MEDS: CLOPIDOGREL BISULFATE 75 MG TABLET PO (09:26)
[2022-05-23] MEDS: APIXABAN 5 MG TABLET 10 MG PO (09:26)
[2022-05-23] MEDS: ASPIRIN 81 MG ENTERIC TABLET PO (09:26)
[2022-05-23] MEDS: SPIRONOLACTONE 50 MG TABLET PO (09:26)
[2022-05-23 09:55] LABS: Hematocrit 28.6 % (42.0-52.0); Hemoglobin 8.5 g/dL (14.0-18.0); Mean Corpuscular HGB Conc 29.7 g/dl (32-36); Mean Corpuscular Hemoglobin 29.2 pg (26-34); Mean Corpuscular Volume 98.3 fl (80-100); Platelet Count Result 141 k/mm3 (150-375); Red Blood Count 2.91 M/mm3 (4.6-6.20); Red Cell Distribution Width 16.5 % (11.5-14.5); White Blood Count 6.5 K/mm3 (4.5-10.0)
--- NOTE | 2022-05-23 09:57 | WPDGIPROGNO ---
Progress Note: A&P Assessment and Plan (1) Cirrhosis: Code(s): K74.60 - Unspecified cirrhosis of liver Status: Acute Assessment and Plan: the etiology is unknown. The patient states that he was told it is probably due to chronic congestive heart failure which seems reasonable. I will obtain hepatitis serology and other studies including ferritin levels. 05/23/2022. I reviewed his records and saw that he has had hepatitis serology done. Also ferritin levels were done in the past. I told that I agree with the assessment he had been given previously that his cirrhosis is this very likely due to passive congestive failure. . He will need to have an EGD done to rule out varices, and to determine whether he needs to be on nonselective beta teresa or other medication to the dens portal venous pressure. (2) Abdominal ascites: Code(s): R18.8 - Other ascites Status: Acute Assessment and Plan: The patient was going to have a paracentesis today but it was delayed until tomorrow because of his recent anti-platelet therapy;. he will obviously need to stay on diuretics as well. I will begin him on Aldactone 05/23/2020 to between the paracentesis and thoracentesis, he had 4300 cc of fluid removed. Both appeared to be transudate (3) Small bowel obstruction: Code(s): K56.609 - Unspecified intestinal obstruction, unspecified as to partial versus complete obstruction Status: Resolved Assessment and Plan: this has resolved he is now eating. Apparently this was an ileus which has a.m. stated has resolved. (4) Nausea, vomiting, and diarrhea: Code(s): R11.2 - Nausea with vomiting, unspecified; R19.7 - Diarrhea, unspecified Status: Acute Assessment and Plan: Not complaining of nausea today. (5) End stage renal disease: Code(s): N18.6 - End stage renal disease Status: Chronic Assessment and Plan: Creatinine is 4.2. He is on dialysis 3 times weak. Nephrology has been consulted. states that the 1st sign of kidney disease was when he had an arteriogram showing renal artery stenosis which was treated at [facility] Subjective Date/time seen: 05/19/22? 15:27 ? We are asked to see this patient who has end-stage renal disease for which she is on hemodialysis, he has severe congestive heart failure having had a prior 5 vessel bypass.? He has been found to have cirrhosis and also has? ascites and pleural effusion.? His ascites had been tapped about 1 month ago during a previous admission but he has reaccumulated fluid.? He states that he has not seen anybody regarding his liver disease but that he did have an appointment to come he believes to our office. ? He states that there is no family history of liver disease except for an uncle that was an alcoholic.? The patient states that he drink alcohol when he was in the [place] but rarely has any now.? He has never had hepatitis.? On admission he was vomiting but now is able to eat.? He states that the vomiting seems to come on when he begins coughing,? when he then develops phlegm in his throat and begins to gag.? He is not having any such problems today.? I reviewed his CT scan which showed: Distal small bowel obstruction, transition point in the right lower quadrant, possibly from adhesion. Multiple mid abdominal small bowel loops have thickened arroyo as can be seen with infection, inflammation, and ischemia. Small left pleural effusion. Large volume ascites. Cirrhosis with portal hypertension. Mediastinal lymphadenopathy ?small-bowel series was done by NG tube yesterday and is negative for obstruction. 05/23/22 09:57 Today he states he is comfortable. He feels much better having had paracentesis a few days ago with removal of about 4 L. he believes also that his ankles, legs, are less swollen. His weight which was 95 kg May 05 is now 73 kg. , nearly a 40 lb drop. Review of Systems Review of Systems: All syst
[2022-05-23 10:07] LABS: Alanine Aminotransferase 23 U/L (6-50); Albumin Level 2.7 g/dL (3.5-5.1); Alkaline Phosphatase 96 U/L (38-126); Anion Gap 3 mmol/L (8-16); Aspartate Amino Transferase 43 U/L (17-59); Bilirubin,Total 0.2 mg/dL (0.2-1.3); Blood Urea Nitrogen 32 mg/dL (9-20); Calcium 7.6 mg/dL (8.4-10.2); Carbon Dioxide 35 mmol/L (22-30); Chloride 95 mmol/L (98-107); Estimated CRCL calculation 17 ml/min; Estimated Glomerular Filt Rate 19; Glucose 146 mg/dL (65-110); Potassium 3.8 mmol/L (3.4-5.0); Sodium 133 mmol/L (137-145)
--- NOTE | 2022-05-23 10:26 | P.PNNP_ITS ---
Progress Note: A&P Assessment and Plan (1) End stage renal disease: Code(s): N18.6 - End stage renal disease Status: Chronic Assessment and Plan: * due progression of disease from HTN, DM, cardiorenal syndrome and TITA * HD tomorrow and continue M// outpatient dialysis schedule * remove fluid as tolerated * follow electrolytes and clearance as well (2) Hypotension: Code(s): I95.9 - Hypotension, unspecified Status: Acute Assessment and Plan: * chronic issue at baseline * likely secondary to known cardiomyopathy * follow trend of hemodynamics (3) Chronic combined systolic and diastolic heart failure: Code(s): I50.42 - Chronic combined systolic (congestive) and diastolic (congestive) heart failure Status: Chronic Assessment and Plan: * fluid removal as tolerated with dialysis to acheive euvolemia * continue ongoing medical management as well (4) Nausea, vomiting, and diarrhea: Code(s): R11.2 - Nausea with vomiting, unspecified; R19.7 - Diarrhea, unspecified Status: Acute Assessment and Plan: * clinical improvement at this time * tolerating oral intake * symptoms presumably due to distal small bowel obstruction as noted by CT scan * continue supportive care (5) Anemia: Code(s): D64.9 - Anemia, unspecified Status: Chronic Assessment and Plan: * due to ESRD * Epogen with HD * follow trend of H/H (6) Diabetes: Code(s): E11.9 - Type 2 diabetes mellitus without complications Status: Chronic Assessment and Plan: * follow accuchecks Not opposed to discharge from renal perspective if otherwise medically stable - I can follow-up with him at his outpatient dialysis center. Will continue to follow. Subjective Date/time seen: 05/23/22 10:26 Tolerated dialysis yesterday without any issues or problems; hemodynamics remain relatively stable; eating and drinking okay without issues related to nausea/vomiting or diarrhea; no acute issues/events overnight or earlier this morning. Exam Narrative: General: WD/WN male in NAD Heart: normal S1 and S2; no rub or gallop Lungs: Clear to auscultation Abdomen: soft, nontender, mild distension, + bowel sounds Extremities: no cyanosis or clubbing; trace - 1+ edema Skin: warm and intact Objective Data Vital Signs Vital Signs: Vital Signs Temp Pulse Resp BP Pulse Ox O2 Del Method 05/23/22 08:47 97 Room Air 05/23/22 05:31 36.8 C 86 18 117/42 L 97 05/23/22 04:00 77 05/23/22 00:00 83 05/22/22 20:00 85 05/22/22 22:00 36.5 C 86 17 104/38 L 97 05/22/22 16:00 71 05/22/22 14:00 36.2 C L 78 18 96/30 L 97 05/22/22 12:00 77 05/22/22 13:37 36.6 C 78 16 115/61 05/22/22 13:30 75 120/48 L 05/22/22 13:20 77 106/54 L 05/22/22 13:00 74 106/48 L 05/22/22 12:40 71 117/50 L 05/22/22 12:20 77 114/52 L 05/22/22 12:00 76 98/49 L 05/22/22 11:40 76 85/42 L 05/22/22 11:20 76 98/55 L 05/22/22 11:00 75 100/46 L 05/22/22 10:40 74 92/47 L Intake/Output Intake/Output:
--- NOTE | 2022-05-23 10:26 | PM.PNNEP ---
Progress Note: A&P Assessment and Plan (1) End stage renal disease: Code(s): N18.6 - End stage renal disease Status: Chronic Assessment and Plan: due progression of disease from HTN, DM, cardiorenal syndrome and TITA HD tomorrow and continue M/W/F outpatient dialysis schedule remove fluid as tolerated follow electrolytes and clearance as well (2) Hypotension: Code(s): I95.9 - Hypotension, unspecified Status: Acute Assessment and Plan: chronic issue at baseline likely secondary to known cardiomyopathy follow trend of hemodynamics (3) Chronic combined systolic and diastolic heart failure: Code(s): I50.42 - Chronic combined systolic (congestive) and diastolic (congestive) heart failure Status: Chronic Assessment and Plan: fluid removal as tolerated with dialysis to acheive euvolemia continue ongoing medical management as well (4) Nausea, vomiting, and diarrhea: Code(s): R11.2 - Nausea with vomiting, unspecified; R19.7 - Diarrhea, unspecified Status: Acute Assessment and Plan: clinical improvement at this time tolerating oral intake symptoms presumably due to distal small bowel obstruction as noted by CT scan continue supportive care (5) Anemia: Code(s): D64.9 - Anemia, unspecified Status: Chronic Assessment and Plan: due to ESRD Epogen with HD follow trend of H/H (6) Diabetes: Code(s): E11.9 - Type 2 diabetes mellitus without complications Status: Chronic Assessment and Plan: follow accuchecks Not opposed to discharge from renal perspective if otherwise medically stable - I can follow-up with him at his outpatient dialysis center. Will continue to follow. Subjective Date/time seen: 05/23/22 10:26 Tolerated dialysis yesterday without any issues or problems; hemodynamics remain relatively stable; eating and drinking okay without issues related to nausea/vomiting or diarrhea; no acute issues/events overnight or earlier this morning. Exam Narrative: General: WD/WN male in NAD Heart: normal S1 and S2; no rub or gallop Lungs: Clear to auscultation Abdomen: soft, nontender, mild distension, + bowel sounds Extremities: no cyanosis or clubbing; trace - 1+ edema Skin: warm and intact Objective Data Vital Signs Vital Signs: Vital Signs Temp Pulse Resp BP Pulse Ox O2 Del Method 05/23/22 08:47 97 Room Air 05/23/22 05:31 36.8 C 86 18 117/42 L 97 05/23/22 04:00 77 05/23/22 00:00 83 05/22/22 20:00 85 05/22/22 22:00 36.5 C 86 17 104/38 L 97 05/22/22 16:00 71 05/22/22 14:00 36.2 C L 78 18 96/30 L 97 05/22/22 12:00 77 05/22/22 13:37 36.6 C 78 16 115/61 05/22/22 13:30 75 120/48 L 05/22/22 13:20 77 106/54 L 05/22/22 13:00 74 106/48 L 05/22/22 12:40 71 117/50 L 05/22/22 12:20 77 114/52 L 05/22/22 12:00 76 98/49 L 05/22/22 11:40 76 85/42 L 05/22/22 11:20 76 98/55 L 05/22/22 11:00 75 100/46 L 05/22/22 10:40 74 92/47 L Intake/Output Intake/Output: Intake & Output 05/20/22 05/21/22 05/22/22 05/23/22 23:59 23:59 23:59 23:59 Intake Total 4586 751 0156 930 Output Total 4300 0 1400 600 Balance -3060 780 320 330 Meds/Results Medications: Active Medications Generic Name Dose Route Start Last Admin Trade Name Hilton PRN Reason Stop Dose Admin Apixaban 10 mg 05/21/22 15:15 05/23/22 09:26 Apixaban 5 Mg Tablet PO 10 mg Q12HR JEFF Administration Aspirin 81 mg 05/13/22 09:00 05/23/22 09:26 Aspirin 81 Mg Enteric Tablet PO 81 mg DAILY JEFF Administration Clopidogrel Bisulfate 75 mg 05/13/22 09:00 05/23/22 09:26 Clopidogrel Bisulfate 75 Mg Tablet PO 75 mg DAILY JEFF Administration Dextrose 12.5 gm 05/12/22 15:28 05/16/22 11:52 Dextrose 50% 25 Gm/50 Ml Syringe IV PUSH 12.5 gm
[2022-05-23 11:47] LABS: Glucose Point of Care 115 mg/dl (65-105)
[2022-05-23] MEDS: HYDROcodone/acetaminophen (*CRX) 5-325 MG TABLET 1 TAB PO (12:52)
--- NOTE | 2022-05-23 14:23 | P.DS_ITS ---
DS: Admitting Diagnosis Discharge Date 05/23/2022 1600 Admitting Diagnosis Ascites DS: Discharge Diagnosis Discharge Diagnosis (1) End stage renal disease: Code(s): N18.6 - End stage renal disease Status: Chronic Assessment and Plan: * Current BUN and creatinine at baseline. * Patient is a dialysis patient and goes to dialysis Sunday, with last dialysis yesterday. * Dr. Ureña is managing HD and will continue upon discharge. Discussed discharge with nephrology who agreed from a renal standpoint patient is ok to discharge and continue his outpatient treatment * Patient remains hypotensive, but this does appear to be chronic and his baseline. * Patient provided with return precautions. (2) Small bowel obstruction: Code(s): K56.609 - Unspecified intestinal obstruction, unspecified as to partial versus complete obstruction Status: Resolved Assessment and Plan: Developed on 05/17: ileus vs SBO. Patient reported nausea, vomiting, diarrhea, was made NPO, and had an NG tube placed. This later resolved, and general surgery signed off the case. Patient's diet was advanced and he is tolerating PO intake and continues to have BMs. (3) Abdominal ascites: Code(s): R18.8 - Other ascites Status: Acute Assessment and Plan: * KUB and CT on admission indicates ascites on the x-ray * 05/20/22: Paracentesis was performed with 3800 ml of ascitic fluid removed without complications. Fluid was found to be transudative in nature. Likely due to chronic cirrhosis. * 05/23: Patient does report some increased pressure in his abdomen again. Discussed likelihood that he will require repeated paracentesis. GI advised patient should follow up in 3-4 weeks to establish care in one of their liver clinics. Patient will also need to strictly avoid salt and keep his fluid intake restricted. (4) Pleural effusion: Code(s): J90 - Pleural effusion, not elsewhere classified Status: Acute Assessment and Plan: * Moderate left-sided pleural effusion on admission. * 600 mL was drained on 05/05/2022 * 05/20: Thoracentesis w/ 500ml pleural fluid removed. Fluid showed no signs of infection or malignancy. * Patient saturating well on room air at this time. No adventitious lung sounds on exam. Patient denies shortness of breath. Return precautions given. (5) Hypotension: Code(s): I95.9 - Hypotension, unspecified Status: Acute Assessment and Plan: * Patient was noted to be hypotensive upon arrival at 73/50 * Current blood pressure is 117/42. Nephrology is following and has advised that this is likely chronic due to cardiomyopathy, and patient's baseline. Fluid status is being managed via HD. * Patient started on spironolactone by GI to help with his fluid retention. * We have held and will continue to hold his Entresto, Imdur, carvedilol given his hypotension. (6) Diabetes: Code(s): E11.9 - Type 2 diabetes mellitus without complications Status: Chronic Assessment and Plan: * Current glucose is 99 * Trend glucose * Insulin sliding scale * Hypoglycemic protocol * Adjust therapy as indicated * Accu-Cheks AC and HS (7) CHF (congestive heart failure): Qualifiers: Heart failure chronicity: chronic Heart failure type: unspecified Qualified Code(s): I50.9 - Heart failure, unspecified Code(s): I50.9 - Heart failure, unspecified Status: Acute Assessment and Plan: * L
--- NOTE | 2022-05-23 14:23 | PM.DS ---
DS: Admitting Diagnosis Discharge Date 05/23/2022 1600 Admitting Diagnosis Ascites DS: Discharge Diagnosis Discharge Diagnosis (1) End stage renal disease: Code(s): N18.6 - End stage renal disease Status: Chronic Assessment and Plan: Current BUN and creatinine at baseline. Patient is a dialysis patient and goes to dialysis Sunday, with last dialysis yesterday. Dr. Ureña is managing HD and will continue upon discharge. Discussed discharge with nephrology who agreed from a renal standpoint patient is ok to discharge and continue his outpatient treatment Patient remains hypotensive, but this does appear to be chronic and his baseline. Patient provided with return precautions. (2) Small bowel obstruction: Code(s): K56.609 - Unspecified intestinal obstruction, unspecified as to partial versus complete obstruction Status: Resolved Assessment and Plan: Developed on 05/17: ileus vs SBO. Patient reported nausea, vomiting, diarrhea, was made NPO, and had an NG tube placed. This later resolved, and general surgery signed off the case. Patient's diet was advanced and he is tolerating PO intake and continues to have BMs. (3) Abdominal ascites: Code(s): R18.8 - Other ascites Status: Acute Assessment and Plan: KUB and CT on admission indicates ascites on the x-ray 05/20/22: Paracentesis was performed with 3800 ml of ascitic fluid removed without complications. Fluid was found to be transudative in nature. Likely due to chronic cirrhosis. 05/23: Patient does report some increased pressure in his abdomen again. Discussed likelihood that he will require repeated paracentesis. GI advised patient should follow up in 3-4 weeks to establish care in one of their liver clinics. Patient will also need to strictly avoid salt and keep his fluid intake restricted. (4) Pleural effusion: Code(s): J90 - Pleural effusion, not elsewhere classified Status: Acute Assessment and Plan: Moderate left-sided pleural effusion on admission. 600 mL was drained on 05/05/202205/20: Thoracentesis w/ 500ml pleural fluid removed. Fluid showed no signs of infection or malignancy. Patient saturating well on room air at this time. No adventitious lung sounds on exam. Patient denies shortness of breath. Return precautions given. (5) Hypotension: Code(s): I95.9 - Hypotension, unspecified Status: Acute Assessment and Plan: Patient was noted to be hypotensive upon arrival at 73/50 Current blood pressure is 117/42. Nephrology is following and has advised that this is likely chronic due to cardiomyopathy, and patient's baseline. Fluid status is being managed via HD. Patient started on spironolactone by GI to help with his fluid retention. We have held and will continue to hold his Entresto, Imdur, carvedilol given his hypotension. (6) Diabetes: Code(s): E11.9 - Type 2 diabetes mellitus without complications Status: Chronic Assessment and Plan: Current glucose is 99 Trend glucose Insulin sliding scale Hypoglycemic protocol Adjust therapy as indicated Accu-Cheks AC and HS (7) CHF (congestive heart failure): Qualifiers: Heart failure chronicity: chronic Heart failure type: unspecified Qualified Code(s): I50.9 - Heart failure, unspecified Code(s): I50.9 - Heart failure, unspecified Status: Acute Assessment and Plan: 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 Nephrology is managing fluid overload with dialysis. Daily weights (161 today, 160 yesterday) Continue to hold Entresto and carvedilol due to hypotension, will have patient follow up with cardiology outpatient for this. thoracentesis performed with pleural fluid showing no signs of infection or malignancy. Patient restarted on ASA/ Plavix. (8) Anemia: Code(s): D64.9 - A
[2022-05-23 16:51] LABS: Glucose Peritoneal Fluid 94 mg/dL; Glucose Pleural Fluid 94 mg/dL; LDH Peritoneal Fluid 116 U/L (<63); LDH Pleural Fluid 116 U/L; Total Protein Peritoneal Fluid 3.9 g/dL; Total Protein Pleural Fluid 3.9 g/dL
[2022-05-25 12:55] LABS: Amylase Peritoneal Fluid <10 U/L; Amylase, Pleural Fluid <10 U/L
[2022-05-26 21:17] LABS: Albumin Peritoneal Fluid 1.9 g/dL; Albumin Pleural Fluid 1.9 g/dL
== END 2022-05-23 17:10 | disposition home health service (06) | DRG 291 ==
LOC: ANHED 14:59 → ANH3MEDSUR 16:19
PROVIDERS: Emergency Medicine; Internal Medicine Nephrology; Nurse Practitioner; Nurse Practitioner Adult Health; Admitting Provider Internal Medicine; Emergency Provider Emergency Medicine; PCP Family Medicine; Visit Provider Student in an Organized Health Care Education/Training Program
DX: I13.2 Hypertensive heart and chronic kidney disease with heart failure and with stage 5 chronic kidney disease, or end stage renal disease (principal); N18.6 End stage renal disease; J90 Pleural effusion, not elsewhere classified; K56.609 Unspecified intestinal obstruction, unspecified as to partial versus complete obstruction; I82.451 Acute embolism and thrombosis of right peroneal vein; R18.8 Other ascites; E11.22 Type 2 diabetes mellitus with diabetic chronic kidney disease; I25.10 Atherosclerotic heart disease of native coronary artery without angina pectoris; Z99.2 Dependence on renal dialysis; J44.9 Chronic obstructive pulmonary disease, unspecified; Z86.718 Personal history of other venous thrombosis and embolism; K21.9 Gastro-esophageal reflux disease without esophagitis; E78.2 Mixed hyperlipidemia; E03.9 Hypothyroidism, unspecified; G47.33 Obstructive sleep apnea (adult) (pediatric); Z79.4 Long term (current) use of insulin; E11.51 Type 2 diabetes mellitus with diabetic peripheral angiopathy without gangrene; L40.9 Psoriasis, unspecified; I95.9 Hypotension, unspecified; D63.1 Anemia in chronic kidney disease; R19.7 Diarrhea, unspecified; R11.2 Nausea with vomiting, unspecified; I50.42 Chronic combined systolic (congestive) and diastolic (congestive) heart failure; Z87.891 Personal history of nicotine dependence; Z79.899 Other long term (current) drug therapy; Z79.82 Long term (current) use of aspirin; Z95.1 Presence of aortocoronary bypass graft; Z79.02 Long term (current) use of antithrombotics/antiplatelets; K74.60 Unspecified cirrhosis of liver
CPT/HCPCS: 32555; 36415; 49083; 71046; 74018; 74176; 74240; 74248; 76705; 80053; 80069; 82042; 82150; 82465; 82607; 82728; 82746; 82945; 82948; 83036; 83540; 83550; 83605; 83615; 83735; 83986; 84100; 84155; 84157; 84311; 84443; 84466; 84478; 84550; 85025; 85027; 85055; 85610; 85730; 86140; 87015; 87040; 87070; 87075; 87102; 87116; 87205; 87206; 88108; 88184; 88305; 89051; 93005; 93970; 96372; 96375; 96376; 97110; 97161; 97165; 97530; 97535; 99285; A9270; G0257; G0378; J1644; J2270; J2405; J7030; J7121; Q5105

== ENCOUNTER 2022-05-27 18:39 | Emergency (ER) | payer MEDICARE, SELFPAY ==
[2022-05-27] VITALS (7 sets, daily range): BP systolic 95–100; BP diastolic 42–44; PULSE 72–88; RESP 4–21; TEMP 36.9; O2SAT 94–98
--- NOTE | ~2022-05-27 | CT_ITS ---
EXAMINATION: CT brain wo con DATE: 05/27/2022 19:54 INDICATION: fall, head injury on eliquis . TECHNIQUE: Computed tomography (CT) of the head was performed without intravenous contrast. The mA wa s adjusted according to patient size. Iterative reconstruction technique was employed. The dose-lengt h product was 681.00 mGy-cm. COMPARISON: 01/04/2022. FINDINGS: No acute intracranial hemorrhage or extra-axial fluid collection. No hydrocephalus, mass, or herniation. No acute ischemic infarct. Unremarkable dural venous sinus attenuation. No acute osseous abnormality. The aerated spaces are clear. Mild atrophy and chronic white matter change. Bilateral lens replacements. IMPRESSION: No acute intracranial process. Reviewed, dictated and finalized at location K.
--- NOTE | ~2022-05-27 | CT_ITS ---
EXAMINATION: CT cervical spine wo con DATE: 05/27/2022 19:54 INDICATION: fall out of wheelchair TECHNIQUE: Computed tomography (CT) of the cervical spine was performed without intravenous contrast. Automated exposure control and iterative reconstruction technique were employed. The dose-length pro duct was 391.88 mGy-cm. COMPARISON: None FINDINGS: Vertebral Body Alignment: Intact. Craniocervical and atlantoaxial alignment: Moderate degenerative change. Alignment intact. Osseous structures/fracture: No evidence of a lytic or blastic process in the visualized spine. No e vidence of acute fracture. Cervical soft tissues: The paraspinal soft tissues planes are maintained. Moderate left pleural effus ion. Degenerative changes: Severe degenerative disc disease at C6-7, with severe left neural foraminal johny rowing. IMPRESSION: No acute fracture or traumatic malalignment in the cervical spine. Moderate volume left pleural effus ion. Reviewed, dictated and finalized at location K. IMPRESSION: No acute fracture or traumatic malalignment in the cervical spine. Moderate vol ume left pleural effusion.
--- NOTE | 2022-05-27 19:35 | ED.GENADULT ---
HPI - General Adult General Chief complaint: Head Injury Stated complaint: [facility] [place] Time Seen by Provider: 05/27/22 19:22 History of Present Illness HPI narrative: Patient 76-year-old gentleman who presents the emergency department with chief complaint of wheelchair accident. Patient reports that he was being wheeled up a step the wheelchair flipped backwards and he fell backwards in the wheelchair and struck his head. Patient states that he had no loss of consciousness but was briefly dazed patient states that he is concerned because he is on aspirin Plavix and on Eliquis. Patient states that he has no focal neurological deficits reports that he has no other injuries. Related Data Home Medications Medication Instructions Recorded Confirmed vit C 250 mg-vit E 90 mg-zinc 40 1 cap PO Q12H 10/20/20 05/12/22 mg-copper 1 [id number] capsule (PreserVision AREDS-2) aspirin 81 mg tablet,delayed 81 mg PO DAILY 01/19/21 05/12/22 release (Adult Aspirin Regimen) cholecalciferol (vitamin D3) 125 125 mcg PO HS 08/02/21 05/12/22 mcg (5,000 unit) capsule isosorbide mononitrate 60 mg 60 mg PO DAILY 08/02/21 05/12/22 tablet,extended release 24 hr clopidogrel 75 mg tablet (Plavix) 75 mg PO DAILY 05/02/22 05/12/22 carvedilol 12.5 mg tablet (Coreg) 6.25 mg PO Q12HR 05/12/22 05/12/22 insulin glargine 100 unit/mL (3 5 unit subcut DAILY 05/12/22 05/12/22 mL) subcutaneous pen (Basaglar KwikPen U-100 Insulin) Allergies Allergy/AdvReac Type Severity Reaction Status Date / Time Penicillins Allergy Unknown UNKNOWN Verified 05/27/22 20:19 A CHILD,Unknown Review of Systems Review of Systems: A 10 system review of systems was completed on the patient and is negative except for what is stated in the HPI. Nursing and ancillary documentation was reviewed. [facility] Past Medical History Medical History Abdominal aortic aneurysm Acute on chronic combined systolic and diastolic CHF (congestive heart failure) Arthritis Ascites Carotid stenosis, bilateral Carpal tunnel syndrome Chronic anemia Chronic kidney disease, stage 4 (severe) CKD stage 4 due to type 2 diabetes mellitus COPD (chronic obstructive pulmonary disease) Deep venous thrombosis Essential hypertension Gastroesophageal reflux disease Heart failure with reduced ejection fraction Echo in 07/2021: 1. Technically difficult study with limited views. 2. Moderately reduced LF function with an EF estimated at 30-35% with hypokinesis of the mid to basal anterolateral, inferior, anterior, and basal inferoseptal arroyo with relative sparing of the apex. 3. Mildly increased LV wall thickness. 4. Left atria is moderately enlarged. 5. Mild tricuspid valve regurgitation. 6. Severe pulmonary hypertension with an estimated pulmonary arterial systolic pressure of 65 mmHg. Hypothyroidism Insulin dependent type 2 diabetes mellitus Mixed hyperlipidemia Nonsustained ventricular tachycardia Obstructive sleep apnea Intolerant to CPAP. Wears oxygen at nighttime. Pancreatitis Peripheral vascular disease Psoriasis Umbilical hernia without obstruction and without gangrene Vertigo Volume overload Surgical History Surgical History H/O abdominal surgery Revascularization to renal arteries and mesenteric artery H/O fasciotomy Right leg History of cataract extraction History of embolectomy Right leg History of stent insertion of renal artery History of tonsillectomy Hx of CABG Initially 5 vessel CABG and later on he had 1 that was redone now for those vessels are occluded he has collateral only the saphenous vein graft to the Left anterior descending is patent and otherwise his coronary arteries are occluded and all depend on the graft flow. Hx of cardiac catheterization Multiple times Presence of combination internal cardiac defibrilla
== END 2022-05-27 20:32 | disposition home or self-care (01) ==
PROVIDERS: Emergency Provider Emergency Medicine; PCP Family Medicine
DX: S09.90XA Unspecified injury of head, initial encounter (principal); I65.23 Occlusion and stenosis of bilateral carotid arteries; I13.0 Hypertensive heart and chronic kidney disease with heart failure and stage 1 through stage 4 chronic kidney disease, or unspecified chronic kidney disease; N18.4 Chronic kidney disease, stage 4 (severe); I50.43 Acute on chronic combined systolic (congestive) and diastolic (congestive) heart failure; E11.22 Type 2 diabetes mellitus with diabetic chronic kidney disease; E11.51 Type 2 diabetes mellitus with diabetic peripheral angiopathy without gangrene; I73.9 Peripheral vascular disease, unspecified; K21.9 Gastro-esophageal reflux disease without esophagitis; D64.9 Anemia, unspecified; E78.2 Mixed hyperlipidemia; E03.9 Hypothyroidism, unspecified; J44.9 Chronic obstructive pulmonary disease, unspecified; G47.33 Obstructive sleep apnea (adult) (pediatric); M19.90 Unspecified osteoarthritis, unspecified site; Z86.718 Personal history of other venous thrombosis and embolism; Z79.4 Long term (current) use of insulin; Z79.82 Long term (current) use of aspirin; Z98.49 Cataract extraction status, unspecified eye; Z95.1 Presence of aortocoronary bypass graft; Z95.810 Presence of automatic (implantable) cardiac defibrillator; V00.811A Fall from moving wheelchair (powered), initial encounter; Z87.891 Personal history of nicotine dependence
CPT/HCPCS: 70450; 72125; 99284

== ENCOUNTER 2022-06-11 01:51 | Inpatient (IN) | payer MEDICARE, SELFPAY ==
[2022-06-11] VITALS (40 sets, daily range): BP systolic 81–114; BP diastolic 43–71; PULSE 71–90; RESP 13–23; TEMP 36.2–36.8; O2SAT 97–100; BMI 27.3
--- NOTE | ~2022-06-11 | XR_ITS ---
EXAMINATION: XR chest 1V portable DATE: 06/22/2022 06:17 INDICATION: Respiratory failure. TECHNIQUE: A single frontal view of the chest was obtained. COMPARISON: Chest single view 06/21/2022 FINDINGS: There are mild airspace opacities in left lower lung zone. Indira B-lines are noted, consis tent mild pulmonary edema. No pleural effusion or pneumothorax. Cardiomegaly is noted. Median sternot gaby wires and mediastinal surgical clips are seen, likely from prior coronary artery bypass grafting. There is a left chest pacer/defibrillator with lead in right ventricle. A right subclavian central v enous catheter is seen with tip in the right atrium. The endotracheal tube tip is 2.9 cm above the ca jose e. The nasogastric tube tip is beyond the inferior margin of the radiograph, but at least to the s tomach. A right internal jugular central venous catheter is seen with tip at the superior cavoatrial junction. IMPRESSION: 1. Mild airspace opacities in left lower lung zone with interval improvement, consistent with atelect asis versus pneumonia. 2. Mild pulmonary edema. 3. Cardiomegaly. Reviewed, dictated and finalized at location A. IMPRESSION: 1. Mild airspace opacities in left lower lung zone with interval improvement, c onsistent with atelectasis versus pneumonia. 2. Mild pulmonary edema. 3. Cardiomegaly.
--- NOTE | ~2022-06-11 | XR_ITS ---
EXAMINATION: XR chest 1V portable DATE: 06/21/2022 05:40 INDICATION: Respiratory failure. Cardiac arrest. TECHNIQUE: A single frontal view of the chest was obtained. COMPARISON: Chest single view 06/20/2022, chest CT 06/21/2022 FINDINGS: There is complete opacification of left hemithorax. There is a diffuse interstitial pattern in right lung. No right-sided pleural effusion or pneumothorax. Cardiomegaly is noted. Median sterno deangelo wires and mediastinal surgical clips are seen, likely from prior coronary artery bypass grafting . There is a left chest pacer/defibrillator with lead in right ventricle. The endotracheal tube tip i s 4.0 cm above the tuyet. The nasogastric tube tip is in the stomach. A right internal jugular centr al venous catheter is seen with tip at the superior cavoatrial junction. A right subclavian central v enous catheter is seen with tip in the right atrium. IMPRESSION: 1. Worsened complete opacification of left hemithorax, likely a combination of atelectasis from mucou s plugging and pleural effusion. 2. Interstitial pattern in right lung, consistent mild pulmonary edema. 3. Cardiomegaly. Reviewed, dictated and finalized at location A. IMPRESSION: 1. Worsened complete opacification of left hemithorax, likely a combination of atelectasis from mucous plugging and pleural effusion. 2. Interstitial pattern in right lung, consistent mild pulmonary edema. 3. Cardiomegaly.
--- NOTE | ~2022-06-11 | XR_ITS ---
EXAMINATION: XR abdomen NG/feed tube insert DATE: 06/23/2022 13:32 INDICATION: Nasogastric tube placement. TECHNIQUE: A supine view of the abdomen was obtained. COMPARISON: Chest single view at 1:23 PM FINDINGS: The lower abdomen is excluded. The nasogastric tube tip is now in the stomach. IMPRESSION: 1. Nasogastric tube tip in the stomach. Reviewed, dictated and finalized at location A.
--- NOTE | ~2022-06-11 | XR_ITS ---
EXAMINATION: XR abdomen NG/feed tube insert INDICATION: Nasogastric tube placement TECHNIQUE: Portable AP KUB-NG at 1124 COMPARISON: 06/23/2022 FINDINGS: The nasogastric tube is in the stomach. A large volume of colonic stool is present. Endovas cular stents are noted in the superior mesenteric artery and right renal artery. There is advanced os teoarthritis of the left hip. IMPRESSION: 1. Nasogastric tube in the stomach. 2. Constipation. Reviewed, dictated and finalized at location A.
--- NOTE | ~2022-06-11 | XR_ITS ---
EXAMINATION: XR chest 1V portable DATE: 06/20/2022 05:34 INDICATION: Respiratory failure. TECHNIQUE: A single frontal view of the chest was obtained. COMPARISON: Chest single view 06/19/2022 FINDINGS: The patient is rotated to his left. There is a diffuse interstitial pattern in the lungs, c onsistent with mild pulmonary edema. There are airspace opacities in the lower lung zones, left worse than right. There is a small left pleural effusion. No pneumothorax. Cardiomegaly is noted. The endo tracheal tube tip is 2.9 cm above the tuyet. The nasogastric tube tip is in the stomach. Median ster notomy wires and mediastinal surgical clips are seen, likely from prior coronary artery bypass grafti ng. There is a left chest pacer/defibrillator with lead in right ventricle. A right subclavian centra l venous catheter is seen with tip in the right atrium. There are surgical clips in right neck. IMPRESSION: 1. Mild pulmonary edema. 2. Stable small left pleural effusion. 3. Improved airspace opacities in the lower lung zones, left worse than right, consistent with atelec tasis versus pneumonia. 4. Cardiomegaly. Reviewed, dictated and finalized at location A. IMPRESSION: 1. Mild pulmonary edema. 2. Stable small left pleural effusion. 3. Improved airspace opacities in the lower lung zones, left worse than right, consistent with atelectasis versus pneumonia. 4. Cardiomegaly.
--- NOTE | ~2022-06-11 | XR_ITS ---
EXAMINATION: XR chest 1V portable INDICATION: Respiratory failure TECHNIQUE: Portable AP chest at 0520 hours COMPARISON: 06/23/2022 FINDINGS: The endotracheal tube ends approximately 3.6 cm above the tuyet. The repositioned nasogast harrison tube is in the stomach. Cardiomegaly is noted. A right internal jugular catheter ends with its ti p in the proximal right atrium. A right subclavian dialysis catheter ends with its tip in the right a trium. A single lead pacemaker of the left chest wall ends with its lead in the right ventricle. Airs pace opacities of the lung bases and right midlung zone persist but have improved. There is a small r ight pleural effusion with improvement. No pneumothorax is identified. IMPRESSION: 1. Improving airspace opacities of the lung bases and right midlung zone, consistent with atelectasis versus pneumonia. 2. Cardiomegaly. 3. Repositioned nasogastric tube in the stomach. Reviewed, dictated and finalized at location A. IMPRESSION: 1. Improving airspace opacities of the lung bases and right midlung zone, consi stent with atelectasis versus pneumonia. 2. Cardiomegaly. 3. Repositioned nasogastric tube in the stomach.
--- NOTE | ~2022-06-11 | XR_ITS ---
XR chest 1V portable DATE: 06/17/2022 11:18 INDICATION: Post cardiac arrest TECHNIQUE: Portable AP chest on 06/17/2022 at 1114 hours COMPARISON: 06/17/2022 portable AP chest at 0507 hours FINDINGS: ET tube in satisfactory position approximately 3.5 cm above tuyet. NG tube in stomach. Right subclavian dialysis catheter tip overlies right atrium. Left AICD/pacemaker device, distal tip overlying right ventricular apex. Status post sternotomy. Surgical clips overlie the heart mediastinum. Cardiomegaly. Aortic arch calci fication. There is pulmonary vascular congestion and pulmonary interstitial prominence including Indira B-lines , suggesting pulmonary interstitial edema. No significant pleural effusion or any pneumothorax is not ed. Osteopenia. IMPRESSION: Cardiomegaly. Pulmonary vascular congestion and pulmonary interstitial edema Improvement of left lower lobe infiltrate and/atelectasis and left costophrenic angle blunting since at 0507 hours Reviewed, dictated and finalized at location A. IMPRESSION: Cardiomegaly. Pulmonary vascular congestion and pulmonary interstit ial edema Improvement of left lower lobe infiltrate and/atelectasis and left costophrenic angle blunting since at 0507 hours
--- NOTE | ~2022-06-11 | XR_ITS ---
XR chest 1V portable DATE: 06/17/2022 06:09 INDICATION: Cardiac arrest, respiratory failure TECHNIQUE: Portable AP chest on 06/17/2022 at 0507 hours COMPARISON: 06/16/2022 portable AP chest at 0507 hours FINDINGS: ET tube 3.7 cm above tuyet. NG tube in stomach. Left AICD/pacemaker device with lead overlying right ventricular apex. Cardiomegaly. Aortic calcification. There is pulmonary vascular congestion. There are bilateral pulmo nary infiltrates, probably in central and lower lungs, increased since 06/16/2022, most prominent in th e lower lung zones, especially on the left. Infiltrates likely due to pulmonary edema; superimposed p neumonia or aspiration pneumonitis not excluded. Mild left pleural effusion. No pneumothorax. IMPRESSION: Increased congestive changes and bilateral infiltrates since 06/16/2022 Reviewed, dictated and finalized at location A. IMPRESSION: Increased congestive changes and bilateral infiltrates since 06/16/20 22
--- NOTE | ~2022-06-11 | XR_ITS ---
EXAMINATION: XR chest 1V portable INDICATION: Respiratory failure TECHNIQUE: Portable AP chest at 0553 hours COMPARISON: 06/24/2022 FINDINGS: The endotracheal tube ends approximately 2.9 cm above the tuyet. The nasogastric tube is i n the stomach. A right internal jugular catheter ends with its tip in the right atrium. A large bore right subclavian catheter ends with its tip in the right atrium as well. Cardiomegaly is noted. There are increasing airspace opacities in the mid and lower lung zones. A single lead pacemaker of the le ft chest wall ends with its lead in the right ventricle. IMPRESSION: 1. Increasing opacities of the mid and lower lung zones, consistent with atelectasis versus pneumonia . 2. Cardiomegaly. Reviewed, dictated and finalized at location A. IMPRESSION: 1. Increasing opacities of the mid and lower lung zones, consistent with atelec tasis versus pneumonia. 2. Cardiomegaly.
--- NOTE | ~2022-06-11 | XR_ITS ---
EXAMINATION: XR chest ET placement DATE: 06/23/2022 13:32 INDICATION: Reintubated. TECHNIQUE: A single frontal view of the chest was obtained. COMPARISON: Chest single view at 5:21 AM FINDINGS: There are airspace opacities in right mid and lower lung zones and left lower lung zone. Th ere is a small right pleural effusion. No pneumothorax. Cardiomegaly is noted. Median sternotomy wire s and mediastinal surgical clips are seen, likely from prior coronary artery bypass grafting. There i s a left chest pacer/defibrillator with lead in right ventricle. A right subclavian central venous ca theter is seen with tip in the right atrium. A right internal jugular central venous catheter is seen with tip at the superior cavoatrial junction. The nasogastric tube is looped in the proximal esophag us and pharynx. There are surgical clips in right neck. IMPRESSION: 1. Airspace opacities in right mid and lower lung zones and left lower lung zone with worsening on th e right, consistent with atelectasis versus pneumonia. 2. Stable small right pleural effusion. 3. Cardiomegaly. 4. Nasogastric tube looped in the pharynx and proximal esophagus. Reviewed, dictated and finalized at location A. IMPRESSION: 1. Airspace opacities in right mid and lower lung zones and left lower lung zon e with worsening on the right, consistent with atelectasis versus pneumonia. 2. Stable small right pleural effusion. 3. Cardiomegaly. 4. Nasogastric tube looped in the pharynx and proximal esophagus.
--- NOTE | ~2022-06-11 | XR_ITS ---
EXAMINATION: XR chest 1V portable DATE: 06/14/2022 05:53 INDICATION: Respiratory failure. TECHNIQUE: A single frontal view of the chest was obtained. COMPARISON: Chest single view 06/13/2022, CT abdomen and pelvis 05/15/2022 FINDINGS: The patient is rotated to his left. There is a moderate-sized left pleural effusion. There are airspace opacities at left lung base. There is a diffuse interstitial pattern, consistent mild pu lmonary edema. No pneumothorax. Cardiomegaly is noted. The endotracheal tube tip is 4.7 cm above the tuyet. A right subclavian central venous catheter is seen with tip in the right atrium. Median mcqueen otomy wires and mediastinal surgical clips are seen, likely from prior coronary artery bypass graftin g. There is a left chest pacer/defibrillator with lead in right ventricle. IMPRESSION: 1. Mild pulmonary edema. 2. Stable moderate-sized left pleural effusion. 3. Stable airspace opacities at left lung base, consistent with atelectasis versus pneumonia. 4. Cardiomegaly. Reviewed, dictated and finalized at location A. IMPRESSION: 1. Mild pulmonary edema. 2. Stable moderate-sized left pleural effusion. 3. Stable airspace opacities at left lung base, consistent with atelectasis christel edd pneumonia. 4. Cardiomegaly.
--- NOTE | ~2022-06-11 | XR_ITS ---
EXAMINATION: XR chest 1V portable DATE: 06/13/2022 05:29 INDICATION: Respiratory failure. TECHNIQUE: A single frontal view of the chest was obtained. COMPARISON: Chest single view 06/12/2022, CT abdomen and pelvis 05/15/2022 FINDINGS: There are airspace opacities in left mid and lower lung zones. There is a small left pleura l effusion. No pneumothorax. Cardiomegaly is noted. The endotracheal tube tip is 3.9 cm above the car thien. The nasogastric tube tip is beyond the inferior margin of the radiograph, but at least to the st omach. Median sternotomy wires and mediastinal surgical clips are seen, likely from prior coronary ar dong bypass grafting. There is a left chest pacer/defibrillator with lead in right ventricle. A right subclavian central venous catheter is seen with tip in right atrium. There are surgical clips in rig ht neck. IMPRESSION: 1. Worsened airspace opacities in left mid and lower lung zones, consistent with atelectasis versus p neumonia. 2. Stable small left pleural effusion. 3. Cardiomegaly. Reviewed, dictated and finalized at location A. IMPRESSION: 1. Worsened airspace opacities in left mid and lower lung zones, consistent wit h atelectasis versus pneumonia. 2. Stable small left pleural effusion. 3. Cardiomegaly.
--- NOTE | ~2022-06-11 | XR_ITS ---
XR chest 1V portable DATE: 06/18/2022 05:51 INDICATION: Cardiac arrest, respiratory failure TECHNIQUE: Portable AP chest on 06/18/2022 at 0518 hours COMPARISON: 06/17/2022 portable AP chest at 1114 hours FINDINGS: Status post sternotomy. ET tube 3.4 cm above tuyet. NG tube in stomach. Right subclavian dialysis catheter overlies right atrium. Left transvenous AICD/pacemaker device with lead overlying right ventricle. Globular enlarged cardiac silhouette, consistent with cardiomegaly 7 pericardial effusion is not excluded. There is pulmonary vascular congestion and redistribution. There are bilateral pulmonary infiltrates, predominating in the central and lower lung zones,, greater on the left; these may be consistent wit h pulmonary edema, pneumonia is not excluded IMPRESSION: Increased pulmonary infiltrates especially on the left since 06/17/2022, which may be due t o pulmonary edema and/or pneumonia Reviewed, dictated and finalized at location A. IMPRESSION: Increased pulmonary infiltrates especially on the left since 06/17/20 22, which may be due to pulmonary edema and/or pneumonia
--- NOTE | ~2022-06-11 | XR_ITS ---
XR chest ET placement DATE: 06/12/2022 15:24 INDICATION: Intubation TECHNIQUE: Portable AP view on 06/12/2022 at 1512 hours COMPARISON: 05/13/2022 PA and lateral chest FINDINGS: Interval placement of ET tube, the tip approximately 1.9 cm above tuyet. Right subclavian central venous dialysis catheter tip overlies the right atrium. Left sided AICD device is again noted, unchanged since 05/13/2022. Status post sternotomy and probable coronary artery bypass graft surgery. Cardiomegaly. There is mild infiltrate or atelectasis in the lower lung zones, left greater than right. No signific ant pleural effusion is noted. No pneumothorax is detected. Diffuse osteopenia. IMPRESSION: ET tube placement, distal tip 1.9 cm above tuyet; ideal range is 2-5 cm Left pacemaker/AICD device Right subclavian dialysis catheter in right atrium Cardiomegaly Bilateral lower lung infiltrate and/atelectasis, greater on the left Reviewed, dictated and finalized at Location A. Reviewed, dictated and finalized at location B. IMPRESSION: ET tube placement, distal tip 1.9 cm above tuyet; ideal range is 2 -5 cm Left pacemaker/AICD device Right subclavian dialysis catheter in right atrium Cardiomegaly Bilateral lower lung infiltrate and/atelectasis, greater on the left
--- NOTE | ~2022-06-11 | XR_ITS ---
EXAMINATION: XR chest 1V portable DATE: 06/16/2022 05:55 INDICATION: Respiratory failure. TECHNIQUE: A single frontal view of the chest was obtained. COMPARISON: Chest single view 06/15/2022 FINDINGS: There is a diffuse interstitial pattern in the lungs, consistent mild pulmonary edema. Ther e is a small left pleural effusion. There are airspace opacities at left lung base. No pneumothorax. Cardiomegaly is noted. The endotracheal tube tip is 4.1 cm above the tuyet. There is a left chest pa cer/defibrillator with lead in right ventricle. A right subclavian central venous catheter is seen wi th tip in the right atrium. Median sternotomy wires and mediastinal surgical clips are seen, likely f rom prior coronary artery bypass grafting. The nasogastric tube tip is in the stomach. There are surg ical clips in the abdomen. IMPRESSION: 1. Mild pulmonary edema. 2. Stable small left pleural effusion. 3. Stable airspace opacities at left lung base, consistent with atelectasis versus pneumonia. 4. Cardiomegaly. Reviewed, dictated and finalized at location A. IMPRESSION: 1. Mild pulmonary edema. 2. Stable small left pleural effusion. 3. Stable airspace opacities at left lung base, consistent with atelectasis christel edd pneumonia. 4. Cardiomegaly.
--- NOTE | ~2022-06-11 | XR_ITS ---
EXAM: XR abdomen obstructive series DATE: 06/13/2022 20:54 HISTORY: VOMITING . COMPARISON: None available. FINDINGS: Small left pleural effusion. Dialysis catheter terminating in the right atrium. Intact rosenda rnotomy wires. Partially visualized defibrillator wire. Surgical clips over the mid abdomen. Paucity of air-filled bowel loops. Centralized loops in the supine views. Single loop of dilated bowel in the midabdomen may represent mildly dilated transverse colon. IMPRESSION: Paucity of air-filled bowel limits dilation. Single loop of mildly dilated transverse col on may represent chronic change, a dilated anastomosis, or early ileus/obstruction. Abdominal ascites . Reviewed, dictated and finalized at location K. IMPRESSION: Paucity of air-filled bowel limits dilation. Single loop of mildly dilated transverse colon may represent chronic change, a dilated anastomosis, o r early ileus/obstruction. Abdominal ascites.
--- NOTE | ~2022-06-11 | CT_ITS ---
EXAMINATION: CT chest high resolution wo nh DATE: 06/20/2022 15:34 INDICATION: Worsening infiltrates. Respiratory failure. TECHNIQUE: Computed tomography (CT) of the chest was performed without intravenous contrast. The dose -length product was 314.97 mGy-cm. Automated exposure control and iterative reconstruction technique were employed. COMPARISON: CT dated 05/02/2022 FINDINGS: Moderate left and small right pleural effusions. Moderate cardiomegaly. There is ascites in the upper abdomen. There are calcified granulomas of the spleen. NG tube in the stomach. There is di ffuse atherosclerosis of the aorta and coronary arteries. Status post median sternotomy for CABG. The re is a pacemaker battery pack overlying the left chest. There is bilateral airspace disease, left gr eater than right with areas of groundglass opacification in both lungs. IMPRESSION: 1. Bilateral airspace disease, left greater than right, which may represent edema and/or pneumonia. L eft basilar airspace disease has progressed since prior CT examination. 2: Moderate left and small right pleural effusions. 3: Moderate cardiomegaly. 4: Ascites. Reviewed, dictated and finalized at location A. IMPRESSION: 1. Bilateral airspace disease, left greater than right, which may represent renetta ma and/or pneumonia. Left basilar airspace disease has progressed since prior C T examination. 2: Moderate left and small right pleural effusions. 3: Moderate cardiomegaly. 4: Ascites.
--- NOTE | ~2022-06-11 | XR_ITS ---
EXAMINATION: XR chest 1V portable DATE: 06/23/2022 05:44 INDICATION: Respiratory failure. TECHNIQUE: A single frontal view of the chest was obtained. COMPARISON: Chest single view 06/22/2022, chest CT 06/20/2022 FINDINGS: There is a diffuse interstitial pattern in the lungs. There are airspace opacities in the l ower lung zones. There is a small right pleural effusion. No pneumothorax. Cardiomegaly is noted. Med emeli sternotomy wires and mediastinal surgical clips are seen, likely from prior coronary artery bypas s grafting. There are surgical clips in right neck. There is a left chest pacer/defibrillator with le ad in right ventricle. A right internal jugular central venous catheter is seen with tip at the super ior cavoatrial junction. A right subclavian central venous catheter is seen with tip in the right atr ium. IMPRESSION: 1. Worsened diffuse lung disease, likely mild pulmonary edema and basilar atelectasis versus pneumoni a. 2. Worsened small right pleural effusion. 3. Cardiomegaly. Reviewed, dictated and finalized at location A. IMPRESSION: 1. Worsened diffuse lung disease, likely mild pulmonary edema and basilar atele ctasis versus pneumonia. 2. Worsened small right pleural effusion. 3. Cardiomegaly.
--- NOTE | ~2022-06-11 | XR_ITS ---
EXAMINATION: XR chest 1V portable DATE: 06/15/2022 06:06 INDICATION: Respiratory failure. TECHNIQUE: A single frontal view of the chest was obtained. COMPARISON: Chest single view 06/14/2022 FINDINGS: The patient is rotated to his left. There is a diffuse interstitial pattern, consistent wit h mild pulmonary edema. There are airspace opacities in left mid and lower lung zones. There is a mod erate-sized left pleural effusion. No pneumothorax. Cardiomegaly is noted. The endotracheal tube tip is 3.4 cm above the tuyet. There is a left chest pacer with lead in right ventricle. A right subclav emeli central venous catheter is seen with tip in the right atrium. The nasogastric tube tip is in the stomach. Median sternotomy wires and mediastinal surgical clips are seen, likely from prior coronary artery bypass grafting. IMPRESSION: 1. Mild pulmonary edema. 2. Stable moderate-sized left pleural effusion. 3. Stable airspace opacities in left mid and lower lung zones, consistent with atelectasis versus pne umonia. 4. Cardiomegaly. Reviewed, dictated and finalized at location A. IMPRESSION: 1. Mild pulmonary edema. 2. Stable moderate-sized left pleural effusion. 3. Stable airspace opacities in left mid and lower lung zones, consistent with atelectasis versus pneumonia. 4. Cardiomegaly.
--- NOTE | ~2022-06-11 | XR_ITS ---
EXAMINATION: XR chest 1V portable DATE: 06/27/2022 06:22 INDICATION: Respiratory failure TECHNIQUE: frontal view of the chest was obtained. COMPARISON: Chest radiograph dated 06/26/2022 FINDINGS: Endotracheal tube tip 3.8 cm above the tuyet. Nasogastric tube tip in proximal side port in the body of the stomach. Large-bore dual-lumen right subclavian central venous catheter with distal tip at th e high right atrium. Additional smaller more right internal jugular central venous catheter with dist al tip near the superior cavoatrial junction. Patient is rotated towards the left. Increasing opacities in the left mid to lower lung zone. Likely small bilateral pleural effusions with blunting at the costophrenic angle on the right. No pulmonary edema or pneumothorax. Cardiomegaly. Median sternotomy wires and mediastinal surgical clips are seen, likely from prior coronary artery bypass grafting. Surgical clips at the right neck. IMPRESSION: 1. Increasing opacities in the left lower lung zone and new blunting at the right costophrenic angle consistent with increasing small bilateral pleural effusions with associated left basilar atelectasis and/or pneumonia. 2. Cardiomegaly. Reviewed, dictated and finalized at location A. IMPRESSION: 1. Increasing opacities in the left lower lung zone and new blunting at the rig ht costophrenic angle consistent with increasing small bilateral pleural effusi ons with associated left basilar atelectasis and/or pneumonia. 2. Cardiomegaly.
--- NOTE | ~2022-06-11 | XR_ITS ---
EXAMINATION: XR chest 1V portable DATE: 06/19/2022 06:35 INDICATION: Cardiac arrest. Respiratory failure. TECHNIQUE: A single frontal view of the chest was obtained. COMPARISON: Chest single view 06/18/2022, CT abdomen and pelvis 05/15/2022 FINDINGS: There is a diffuse interstitial pattern, consistent with mild pulmonary edema. There is a s mall left pleural effusion. There are airspace opacities in the lower lung zones. No pneumothorax. Ca rdiomegaly is noted. Median sternotomy wires and mediastinal surgical clips are seen, likely from sean or coronary artery bypass grafting. The endotracheal tube tip is 4.6 cm above the tuyet. There is a left chest pacer/defibrillator with lead in right ventricle. A right subclavian central venous cathet er is seen with tip in the right atrium. The nasogastric tube tip is in the stomach. IMPRESSION: 1. Mild pulmonary edema. 2. Stable small left pleural effusion. 3. Airspace opacities in the lower lung zones with improvement on the right and worsening on the left , consistent with atelectasis versus pneumonia. 4. Cardiomegaly. Reviewed, dictated and finalized at location A. IMPRESSION: 1. Mild pulmonary edema. 2. Stable small left pleural effusion. 3. Airspace opacities in the lower lung zones with improvement on the right and worsening on the left, consistent with atelectasis versus pneumonia. 4. Cardiomegaly.
--- NOTE | ~2022-06-11 | XR_ITS ---
EXAM: XR abdomen NG/feed tube insert DATE: 06/18/2022 18:58 HISTORY: og tube placement . COMPARISON: X-ray abdomen obstructive series 06/16/2022. FINDINGS: Atelectasis/consolidation in the right lung base. NG tube, terminates over the stomach. Up per midline vascular stent Additional lines are described in the concurrent chest radiograph Nonobstr uctive bowel gas pattern. No organomegaly. No abnormal abdominal calcification. Regional bones and so ft tissues normal for age. IMPRESSION: NG tube, in good position. Reviewed, dictated and finalized at location K. IMPRESSION: NG tube, in good position.
--- NOTE | ~2022-06-11 | XR_ITS ---
EXAMINATION: XR chest 1V portable DATE: 06/26/2022 05:16 INDICATION: Respiratory failure TECHNIQUE: frontal view of the chest was obtained. COMPARISON: 06/25/2022 FINDINGS: Endotracheal tube tip 2.1 cm above the tuyet. Large-bore dual-lumen right subclavian central venous catheter with distal tip at the high right atrium. Smaller caliber right internal jugular central pankaj ous catheter with distal tip near the superior cavoatrial junction. Nasogastric tube extends below t he left hemidiaphragm with distal tip collimated off the study. There is been slight decrease in mild opacities in the bilateral mid and lower lung zones. Likely christel y small left pleural effusion. No pneumothorax or right-sided pleural effusion. Cardiomegaly. Median sternotomy wires and mediastinal surgical clips are seen, likely from prior coronary artery bypass gr afting. Single lead pacemaker/AICD seen with the tip projecting over the right ventricle. Stenting of the superior mesenteric artery. IMPRESSION: 1. Slight decrease in opacities in the bilateral mid and lower lung zones which could represent impro ving mild pulmonary edema, atelectasis or pneumonia. 2. Likely very small left pleural effusion. 3. Cardiomegaly. Reviewed, dictated and finalized at location A. IMPRESSION: 1. Slight decrease in opacities in the bilateral mid and lower lung zones which could represent improving mild pulmonary edema, atelectasis or pneumonia. 2. Likely very small left pleural effusion. 3. Cardiomegaly.
--- NOTE | ~2022-06-11 | XR_ITS ---
EXAMINATION: XR chest ET placement Exam Date/Time: 06/18/2022 18:50 CDT HISTORY: intubation; et placement Comparison: None available. RESULT: Lines, tubes, and devices: Left chest AICD, endotracheal tube, and NG tube, and right subclavian federica lysis line remain in stable and good position. Lungs and pleura: Improved aeration of the left lung base. Worsening opacities in the right lower zion ng. Unchanged diffuse reticular pattern that may represent interstitial edema. Trace bilateral effusi ons are possible. Cardiomediastinal silhouette: Stable. Other: No acute osseous or upper abdominal finding. IMPRESSION: Worsening right basilar opacities, likely atelectasis. Improved left basilar aeration since. Reviewed, dictated and finalized at location K. IMPRESSION: Worsening right basilar opacities, likely atelectasis. Improved left basilar ae ration since.
--- NOTE | ~2022-06-11 | XR_ITS ---
EXAMINATION: XR abdomen obstructive series DATE: 06/16/2022 08:50 INDICATION: Abdominal distention. TECHNIQUE: Upright and supine views of the abdomen were obtained. COMPARISON: CT abdomen and pelvis 05/15/2022 FINDINGS: There are no dilated loops of bowel. There is a small volume of stool in the colon. There a re stents in superior mesenteric artery and right renal artery. The nasogastric tube tip is in the st omach. No free intraperitoneal gas. A catheter overlies the bladder. There is a central venous cathet er in left pelvis. There is a moderate-sized left pleural effusion. There are airspace opacities at l eft lung base. Cardiomegaly is noted. Median sternotomy wires and mediastinal surgical clips are seen , likely from prior coronary artery bypass grafting. There is a left chest pacer/defibrillator with l ead in right ventricle. There is a right-sided central venous catheter with tip in right atrium. Ther e are surgical clips in the abdomen. IMPRESSION: 1. Nonobstructive bowel gas pattern. 2. Moderate-sized left pleural effusion. 3. Airspace opacities at left lung base, consistent with atelectasis versus pneumonia. Reviewed, dictated and finalized at location A. IMPRESSION: 1. Nonobstructive bowel gas pattern. 2. Moderate-sized left pleural effusion. 3. Airspace opacities at left lung base, consistent with atelectasis versus pne umonia.
--- NOTE | ~2022-06-11 | CT_ITS ---
EXAMINATION: CT brain wo con DATE: 06/12/2022 18:24 INDICATION: Altered mental status . TECHNIQUE: Computed tomography (CT) of the head was performed without intravenous contrast. The mA wa s adjusted according to patient size. Iterative reconstruction technique was employed. The dose-lengt h product was 681.00 mGy-cm. COMPARISON: 05/27/2022 FINDINGS: No acute intracranial hemorrhage or extra-axial fluid collection. No hydrocephalus, mass, or herniation. No acute ischemic infarct. Unremarkable dural venous sinus attenuation. No acute osseous abnormality. The aerated spaces are clear. Partially visualized endotracheal and orogastric tubes. Atherosclerotic intracranial calcification. B ilateral lens replacements. Mild atrophy and chronic white matter change. IMPRESSION: No acute intracranial process. Reviewed, dictated and finalized at location K.
--- NOTE | ~2022-06-11 | CT_ITS ---
EXAMINATION: CT brain wo con DATE: 06/23/2022 15:53 INDICATION: Altered mental state. Cardiac arrest. TECHNIQUE: Computed tomography (CT) of the head was performed without intravenous contrast. The mA wa s adjusted according to patient size. Iterative reconstruction technique was employed. Exam dose: 68 1.00 mGy-cm total exam DLP. COMPARISON: 06/12/2022 CT brain FINDINGS: Dominant right vertebral artery calcification and prominent bilateral carotid siphon fashion intern al carotid artery calcifications. There is nonspecific diminished attenuation of the cerebral white matter, likely due to chronic small vessel ischemic changes. Moderately prominent central and cortical cerebral and cerebellar atrophy. No intracranial mass lesion or hemorrhage or cerebrovascular accident is detected. No midline shift o r mass effect. No subdural or epidural hematoma. Endotracheal and orogastric tubes are noted. No fracture or bone destruction of the cranial vault. The mastoid air cells and paranasal sinuses are unremarkable except for a small mucus retention cyst at the posterior medial floor of the left maxil davion sinus. IMPRESSION: Cerebral atherosclerosis and chronic small vessel ischemic changes of cerebral white mat ter Cerebral and cerebellar atrophy No acute intracranial finding Reviewed, dictated and finalized at Location A. Reviewed, dictated and finalized at location B. IMPRESSION: Cerebral atherosclerosis and chronic small vessel ischemic changes of cerebral white matter Cerebral and cerebellar atrophy No acute intracranial finding
--- NOTE | ~2022-06-11 | XR_ITS ---
XR abdomen NG/feed tube insert DATE: 06/12/2022 15:24 INDICATION: Oral gastric tube placement TECHNIQUE: Portable AP view on 06/12/2022 at 1515 hours COMPARISON: 05/18/2022 upper gastrointestinal series 05/18/2022 KUB FINDINGS: NG tube is in the lower body of the stomach, the proximal side-port approximately 7.[address] to the diaphragmatic hiatus. Gastric gaseous distention. No apparent intraperitoneal free air. IMPRESSION: Orogastric tube in lower body of stomach Reviewed, dictated and finalized at Location A. Reviewed, dictated and finalized at location B.
--- NOTE | ~2022-06-11 | US_ITS ---
EXAMINATION: US venous doppler LE RT DATE: 06/12/2022 09:56 INDICATION: Recent deep venous thrombosis in the right peroneal vein. TECHNIQUE: Grayscale ultrasound images without and with compression and Doppler ultrasound images of the right lower extremity veins were obtained. COMPARISON: None. FINDINGS: The visualized portions of right common femoral vein, profunda (deep) femoral vein, femoral vein, pop liteal vein, peroneal trunk, posterior tibial veins, peroneal veins, gastrocnemius vein and greater s aphenous vein outflow are patent. IMPRESSION: 1. No deep venous thrombosis in the right lower limb. Reviewed, dictated and finalized at location A.
--- NOTE | ~2022-06-11 | XR_ITS ---
XR chest port-a-cath/central 06/20/2022 14:59 Indication: Central line placement Procedure: AP portable chest Comparison: Comparison to multiple prior studies sequentially, with oldest reviewed study dated 05/2022. Findings: Interval placement of right IJ central line, tip in the SVC. There is a large bore right peralta bclavian central venous catheter tip near the cavoatrial junction. Endotracheal tube tip 3.4 cm above the tuyet. Defibrillator/AICD lead tip in the right ventricle. Cardiomegaly with mild interstitial edema. Small left pleural effusion. No pneumothorax. Impression: 1: Right IJ central line tip in the SVC. 2: Cardiomegaly with interstitial edema. Reviewed, dictated and finalized at location A. Impression: 1: Right IJ central line tip in the SVC. 2: Cardiomegaly with interstitial edema.
--- NOTE | ~2022-06-11 | US_ITS ---
EXAMINATION: US thoracentesis DATE: 06/21/2022 16:53 INDICATION: pleural effusion TECHNIQUE: The procedure and its risks, benefits, and alternatives were discussed with the patient's power of criminal defense attorney. Potential risks discussed included bleeding, infection, and pneumothorax. The skin was prepped and draped in sterile fashion. 1% lidocaine was used for local anesthesia. Under ultraso und guidance, a 5 Fr catheter with trochar was advanced into the left pleural effusion. Fluid was asp irated. The catheter was removed, and a dressing was applied. There were no immediate complications. FINDINGS: Ultrasound images demonstrate a left pleural effusion and the catheter within the fluid. IMPRESSION: 1. Successful ultrasound-guided thoracentesis yielding 700 mL of clear, henri-colored fluid. Reviewed, dictated and finalized at location A. IMPRESSION: 1. Successful ultrasound-guided thoracentesis yielding 700 mL of clear, henri- colored fluid.
[2022-06-11] MEDS: LACTATED RINGERS 1,000 ML 999 ML IV CONT (02:13)
[2022-06-11] MEDS: PANTOPRAZOLE SODIUM IV 40 MG VIAL 80 MG IV PUSH (02:13)
[2022-06-11 02:19] LABS: Basophils Absolute Auto 0.1 K/mm3 (0.0-0.1); Basophils Percent Auto 0.6 % (0.2-1.2); Eosinophils Absolute Auto 0.2 K/mm3 (0-0.3); Eosinophils Percent Auto 1.9 % (0-4.4); Hemoglobin 8.1 g/dL (14.0-18.0); Immature Granulocyte Absolute 0.06 K/mm3 (0.00-0.031); Immature Granulocyte Percent A 0.6 % (0-0.5); Lymphocytes Absolute Auto 1.17 K/mm3 (0.9-3.2); Lymphocytes Percent Auto 10.8 % (18.3-44.2); Mean Corpuscular HGB Conc 28.9 g/dl (32-36); Mean Corpuscular Hemoglobin 29.5 pg (26-34); Mean Corpuscular Volume 101.8 fl (80-100); Monocytes Absolute Auto 0.8 K/mm3 (0.1-0.6); Monocytes Percent Auto 7.5 % (2.6-8.5); Neutrophils Absolute Auto 8.5 K/mm3 (1.3-6.7); Neutrophils Percent Auto 78.6 % (45.5-73.1); Platelet Count Result 165 k/mm3 (150-375); Red Blood Count 2.75 M/mm3 (4.6-6.20); Red Cell Distribution Width 17.7 % (11.5-14.5); White Blood Count 10.9 K/mm3 (4.5-10.0)
[2022-06-11 02:29] LABS: INR 1.7; Prothrombin Time 19.4 Seconds (11.1-14.7)
[2022-06-11 02:30] LABS: Partial Thromboplastin Time 53.2 SECONDS (22.3-36.8)
[2022-06-11 02:32] LABS: Alanine Aminotransferase 12 U/L (6-50); Albumin Level 3.6 g/dL (3.5-5.1); Alkaline Phosphatase 148 U/L (38-126); Anion Gap 13 mmol/L (8-16); Aspartate Amino Transferase 22 U/L (17-59); Bilirubin,Total 0.3 mg/dL (0.2-1.3); Blood Urea Nitrogen 50 mg/dL (9-20); Calcium 8.5 mg/dL (8.4-10.2); Carbon Dioxide 28 mmol/L (22-30); Chloride 98 mmol/L (98-107); Estimated CRCL calculation 12 ml/min; Estimated Glomerular Filt Rate 13; Glucose 116 mg/dL (65-110); Potassium 3.9 mmol/L (3.4-5.0); Sodium 139 mmol/L (137-145)
[2022-06-11 02:37] LABS: Anisocytosis 1+ (NORMAL); Ovalocytes 1+ (NORMAL); Platelet Estimate Adequate (Adequate)
--- NOTE | 2022-06-11 02:46 | ED.GIBLEED ---
HPI - GI Bleed General Chief complaint: GI Bleed Stated complaint: Black tarry stool for 45 min Time Seen by Provider: 06/11/22 02:02 History of Present Illness HPI Narrative: Patient is a 76-year-old male complaining of dark tarry stools that started tonight. Patient denies any abdominal pain, hematemesis, or hemoptysis. Patient states he is currently on Eliquis, Plavix and aspirin. Patient denies any similar episodes in the past. Patient also states that his blood pressures been running low lately especially when he has dialysis. Related Data Home Medications Medication Instructions Recorded Confirmed vit C 250 mg-vit E 90 mg-zinc 40 1 cap PO Q12H 10/20/20 05/12/22 mg-copper 1 [id number] capsule (PreserVision AREDS-2) aspirin 81 mg tablet,delayed 81 mg PO DAILY 01/19/21 05/12/22 release (Adult Aspirin Regimen) cholecalciferol (vitamin D3) 125 125 mcg PO HS 08/02/21 05/12/22 mcg (5,000 unit) capsule isosorbide mononitrate 60 mg 60 mg PO DAILY 08/02/21 05/12/22 tablet,extended release 24 hr clopidogrel 75 mg tablet (Plavix) 75 mg PO DAILY 05/02/22 05/12/22 carvedilol 12.5 mg tablet (Coreg) 6.25 mg PO Q12HR 05/12/22 05/12/22 insulin glargine 100 unit/mL (3 5 unit subcut DAILY 05/12/22 05/12/22 mL) subcutaneous pen (Basaglar KwikPen U-100 Insulin) Allergies Allergy/AdvReac Type Severity Reaction Status Date / Time Penicillins Allergy Unknown UNKNOWN Verified 06/11/22 01:58 A CHILD,Unknown Review of Systems Review of Systems: All systems reviewed & are unremarkable except as noted in HPI and below Constitutional: Constitutional: Denies body ache(s), Denies chills, Denies excessive sweating, Denies fatigue, Denies fever(s), Denies headache(s), Denies lethargy, Denies malaise, Denies weakness and Denies weight loss Eyes: Eyes: Denies blurry vision, Denies change in vision and Denies loss of vision ENT: Denies dizziness, Denies ear discharge, Denies headache(s), Denies lip swelling, Denies epistaxis, Denies nasal congestion, Denies neck pain, Denies throat swelling and Denies tongue swelling Cardiovascular: Cardiovascular: Denies chest pain, Denies chest pain at rest, Denies chest pain with activity, Denies diaphoresis, Denies rapid heart rate, Denies edema, Denies irregular heart rhythm, Denies lightheadedness, Denies palpitations, Denies dyspnea and Denies dyspnea on exertion Respiratory: Respiratory: Denies chest congestion, Denies cough, Denies hemoptysis, Denies dyspnea and Denies dyspnea on exertion Gastrointestinal: Gastrointestinal: Denies abdominal pain, Denies diarrhea, Denies nausea, Denies vomiting and Denies hematemesis Musculoskeletal: Musculoskeletal: Denies abnormal gait, Denies deformity, Denies joint swelling, Denies limited range of motion, Denies neck pain and Denies numbness Neurologic: Denies Abnormal speech present, Denies abnormal gait, Denies confusion, Denies dizziness, Denies headache(s), Denies focal weakness, Denies loss of vision, Denies numbness, Denies Other visual disturbances, Denies Sensory deficit (Neuro) and Denies weakness Psychiatric: Psychiatric: Denies confusion, Denies depression, Denies auditory hallucinations, Denies homicidal ideation and Denies suicidal ideation Endocrine: Endocrine: Denies cold intolerance, Denies excessive sweating, Denies fatigue, Denies heat intolerance and Denies palpitations Hematologic/Lymphatic: Hematologic/Lymphatic: Denies easy bleeding and Denies easy bruising Allergic/Immunologic: Allergic/Immunologic: Denies lip swelling, Denies throat swelling and Denies tongue swelling PMFSH Past Medical History Medical History Abdominal aortic aneurysm Acute on chronic combined systolic and diastolic CHF (congestive heart failure) Arthritis Ascites Carotid stenosis, bilateral Carpal tunnel syndrome Chronic anemia Chronic kidney disease, stage 4 (severe) CKD stage 4 du
--- NOTE | 2022-06-11 03:11 | PM.IMHP ---
H&P: HPI History of Present Illness Date/Time: 06/11/22 03:11 Chief Complaint: black stool Narrative: this is a 76-year-old male with past medical history significant for coronary artery disease 5 vessel disease status post coronary artery bypass graft, end-stage renal disease on hemodialysis Sunday, type diabetes mellitus, abdominal aortic aneurysm, systolic heart failure, COPD, gastroesophageal reflux disease. patient was recently started on apixaban and he is also on Plavix and aspirin and came to emergency room for evaluation after he had an episode of black stools patient has a chronic productive cough of white phlegm, denies any shortness of breath, fevers, rigors, chills, nausea, vomiting, bright red blood per rectum, hematemesis, epistaxis, hemoptysis, weight loss, change in stool character, palpitations, has been having low blood pressures at time of dialysis and has been feeling lightheaded and short of breath with exertion. preliminary workup has been essentially nonrevealing. patient is been admitted for further evaluation management and treatment. Review of Systems Review of Systems: Patient presents to the emergency room due to black stools Constitutional: Constitutional: Denies chills, Denies fatigue, Denies fever(s), Denies malaise, Denies night sweats and Denies weakness Eyes: Eyes: Denies change in vision ENT: Denies dysphagia, Denies vertigo, Reports dizziness and Denies odynophagia Cardiovascular: Cardiovascular: Denies chest pain, Denies syncope, Denies irregular heart rhythm, Reports lightheadedness, Denies palpitations, Reports dyspnea on exertion, Denies orthopnea and Denies paroxysmal nocturnal dyspnea Respiratory: Respiratory: Denies chest congestion, Denies excessive phlegm production and Denies wheezing Gastrointestinal: Gastrointestinal: Denies abdominal pain, Reports melena, Denies dyspepsia, Denies heartburn, Denies nausea and Denies vomiting Genitourinary: Genitourinary: Reports no additional male genitourinary complaints and Reports as per HPI Musculoskeletal: Musculoskeletal: Denies back pain and Denies joint swelling Integumentary/Breasts: Skin/Breast: Denies rash Neurologic: Denies vertigo, Denies dizziness, Denies focal weakness and Denies Sensory deficit (Neuro) Psychiatric: Psychiatric: Reports no additional psychiatric complaints and Reports as per HPI Endocrine: Endocrine: Denies cold intolerance, Denies fatigue, Denies flushing, Denies heat intolerance, Denies polyphagia, Denies polydipsia and Denies palpitations Hematologic/Lymphatic: Hematologic/Lymphatic: Reports no additional hematologic/lymphatic complaints and Reports as per HPI Allergic/Immunologic: Allergic/Immunologic: Reports no additional allergic/immunologic complaints and Reports as per HPI PMFSH Past Medical History Medical History Abdominal aortic aneurysm Acute on chronic combined systolic and diastolic CHF (congestive heart failure) Arthritis Ascites Carotid stenosis, bilateral Carpal tunnel syndrome Chronic anemia Chronic kidney disease, stage 4 (severe) CKD stage 4 due to type 2 diabetes mellitus COPD (chronic obstructive pulmonary disease) Deep venous thrombosis Essential hypertension Gastroesophageal reflux disease Heart failure with reduced ejection fraction Echo in 07/2021: 1. Technically difficult study with limited views. 2. Moderately reduced LF function with an EF estimated at 30-35% with hypokinesis of the mid to basal anterolateral, inferior, anterior, and basal inferoseptal arroyo with relative sparing of the apex. 3. Mildly increased LV wall thickness. 4. Left atria is moderately enlarged. 5. Mild tricuspid valve regurgitation. 6. Severe pulmonary hypertension with an estimated pulmonary arterial systolic pressure of 65 mmHg. Hypothyroidism Insulin dependent type 2 diabetes mellitus Mixed hyperlipidemia Nonsustained ventri
[2022-06-11 03:59] LABS: Glucose Point of Care 117 mg/dl (65-105)
[2022-06-11 04:11] LABS: SARS-CoV-2 RNA PCR Negative
--- NOTE | 2022-06-11 04:43 | PC.NURSE ---
Pt's BP appears low at this time 84/57 but with a manual BP pt BP is 110/62 MD notified
--- NOTE | 2022-06-11 05:35 | ADMGEN ---
This patient, Jaime Morrell, was admitted to IMU Room 207-01 at 0500. Patient/family oriented to hospital policies and general routines including ID bracelet, bed and alarms, visiting hours, pain management, procedures, bathroom and other care routines, personal items, smoking policy, room service/diet, and visiting hours. Information on how to activate the Rapid Response Team has been discussed. Patient/Family are encouraged to report perceived risks to care and to ask questions if they do not understand what they are told or what they should do.
[2022-06-11 06:24] LABS: Glucose Point of Care 116 mg/dl (65-105)
[2022-06-11] MEDS: LACTATED RINGERS 1,000 ML 75 ML IV CONT ×2 (08:42→21:40)
--- NOTE | 2022-06-11 10:37 | PM.IMPN ---
Progress Note: A&P Assessment and Plan (1) GI bleed: Code(s): K92.2 - Gastrointestinal hemorrhage, unspecified Status: Acute Assessment and Plan: admit to regular medical floor will hold anticoagulation GI consult Cardiology consult as well for recommendations on antiplatelets and anticoagulation transfuse as needed monitor hemoglobin hematocrit (2) End stage renal disease on dialysis: Code(s): N18.6 - End stage renal disease; Z99.2 - Dependence on renal dialysis Status: Acute Assessment and Plan: dialyzes Sunday and Fridays nephrology consult (3) Antiplatelet or antithrombotic long-term use: Code(s): Z79.02 - group home (current) use of antithrombotics/antiplatelets Status: Acute Assessment and Plan: will be holding anticoagulation no recent history of stent (4) Chronic combined systolic and diastolic heart failure: Code(s): I50.42 - Chronic combined systolic (congestive) and diastolic (congestive) heart failure Status: Chronic Assessment and Plan: patient appears to be compensated (5) Coronary artery 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: Code(s): I25.810 - Atherosclerosis of coronary artery bypass graft(s) without angina pectoris Status: Acute Assessment and Plan: chest pain-free restart home med (6) Peripheral vascular disease, unspecified: Code(s): I73.9 - Peripheral vascular disease, unspecified Status: Acute Assessment and Plan: appears to be compensated unchanged (7) Gastro-esophageal reflux disease without esophagitis: Code(s): K21.9 - Gastro-esophageal reflux disease without esophagitis Status: Acute Assessment and Plan: PPI as needed (8) End-stage renal disease on hemodialysis: Code(s): N18.6 - End stage renal disease; Z99.2 - Dependence on renal dialysis Status: Acute Assessment and Plan: continue hemodialysis Subjective Date/time seen: 06/11/22 10:37 No additional bleeding Exam Narrative: patient is laying in a stretcher Const: General: cooperative, comfortable, no acute distress, well developed, alert, awake and ill appearing chronically Nutritional Appearance: average body habitus Orientation/consciousness: patient oriented x3 HENMT: Head: normal to inspection, normocephalic and atraumatic Ears: hearing grossly normal bilaterally Face and sinus: normal facial exam Eyes: General: appearance normal, both eyes and all related structures Pupils: Equal, round and reactive pupils present EOM: EOMs intact bilaterally Neck: Neck: full ROM, no lymphadenopathy and no JVD Thyroid: thyroid normal Lymphatic: no lymphadenopathy noted Resp: Effort & Inspection: normal respiratory effort and able to speak in complete sentences Auscultation: clear to auscultation bilaterally Cardio: Jugular venous distension: no JVD Rate: regular rate Rhythm: regular rhythm Heart sounds: S1 normal heart sound present and S2 normal heart sound present GI: Inspection: scar ( mid abdomen) : General: Yes deferred Skin: Rashes: no rashes Wounds: no wounds Neuro: General: patient oriented x3, CN's II-XI intact bilaterally and Unable to assess gait Cranial nerves: Yes CN's II-XII intact bilaterally and Yes Equal, round and reactive pupils present Cognition (Neuro): normal cognition Speech: normal speech Gait exam (Neuro): Unable to assess gait Motor exam (neuro): 5/5 motor strength present throughout Sensory Exam: No Sensory deficit (Neuro) Extrem: General: normal to inspection, full ROM, no joint enlargement and no pedal edema Objective Data Vital Signs Vital Signs: Vital Signs - 24 hr 06/11/22 01:49 06/11/22 02:31 06/11/22 02:05 Temperature 98.3 F Pulse Rate 84 Respiratory Rate 17 Blood Pressure 104/49 L 98/60 L Pulse Oximetry 100 98 Oxygen Delivery Room Air 06/11/22 02:09 06/11/22 02:1
[2022-06-11 11:38] LABS: Glucose Point of Care 105 mg/dl (65-105)
--- NOTE | 2022-06-11 12:01 | WPDGICN ---
Assessment and Plan Assessment and plan (1) GI bleed: Code(s): K92.2 - Gastrointestinal hemorrhage, unspecified Status: Acute Assessment and Plan: recently started on eliquis and patient also is on aspirin and plavix there is question that he may have cirrhosis with previous paracentesis (probably related to heart disease) iv protonix, antibiotics egd in the morning hb 8 (2) Melena: Code(s): K92.1 - Melena Status: Acute Assessment and Plan: egd holding blood thinners for now (3) Cirrhosis: Code(s): K74.60 - Unspecified cirrhosis of liver Status: Acute Assessment and Plan: will need follow up with hepatology (4) Abdominal ascites: Code(s): R18.8 - Other ascites Status: Acute Assessment and Plan: recent paracentesis (5) Chronic combined systolic and diastolic heart failure: Code(s): I50.42 - Chronic combined systolic (congestive) and diastolic (congestive) heart failure Status: Chronic Assessment and Plan: advanced hear disease (6) End stage renal disease on dialysis: Code(s): N18.6 - End stage renal disease; Z99.2 - Dependence on renal dialysis Status: Acute Assessment and Plan: by nephrology (7) DVT (deep venous thrombosis): Code(s): I82.409 - Acute embolism and thrombosis of unspecified deep veins of unspecified lower extremity Status: Acute (8) Antiplatelet or antithrombotic long-term use: Code(s): Z79.02 - rodent exterminator (current) use of antithrombotics/antiplatelets Status: Acute GI Consult Note Consult date/time: 06/11/22 12:01 Reason for consult: melena HPI: Jaime Morrell is a 76 year old male with history significant for coronary artery disease status post coronary artery bypass graft, end-stage renal disease on hemodialysis Sunday, type diabetes mellitus, abdominal aortic aneurysm, systolic heart failure s/p aicd, COPD. Recent hospitalization earlier this month for SBO treated medically, also he was seeing by Dr Hobbs because cirrhosis probably related to advanced heart disease with negative hepatitis panel that required paracentesis, also had DVT started on eliquis (patient also is on plavix and aspirin). This time he is here because new episode of dark stool, denies n/v. No recent EGD, last colonoscopy 10 years ago. Hb 8.1 (recent 9), BUN 50 but he is on dialysis (last time 30's). Started on iv protonix. Review of Systems Review of Systems: Patient presents to the emergency room due to black stools Constitutional: Constitutional: Denies chills, Denies fatigue, Denies fever(s), Denies malaise, Denies night sweats and Denies weakness Eyes: Eyes: Denies change in vision ENT: Denies dysphagia, Denies vertigo, Reports dizziness and Denies odynophagia Cardiovascular: Cardiovascular: Denies chest pain, Denies syncope, Denies irregular heart rhythm, Reports lightheadedness, Denies palpitations, Reports dyspnea on exertion, Denies orthopnea and Denies paroxysmal nocturnal dyspnea Respiratory: Respiratory: Denies chest congestion, Denies excessive phlegm production and Denies wheezing Gastrointestinal: Gastrointestinal: Denies abdominal pain, Reports melena, Denies dyspepsia, Denies heartburn, Denies nausea and Denies vomiting Genitourinary: Genitourinary: Reports no additional male genitourinary complaints and Reports as per HPI Musculoskeletal: Musculoskeletal: Denies back pain and Denies joint swelling Integumentary/Breasts: Skin/Breast: Denies rash Neurologic: Denies vertigo, Denies dizziness, Denies focal weakness and Denies Sensory deficit (Neuro) Psychiatric: Psychiatric: Reports no additional psychiatric complaints and Reports as per HPI Endocrine: Endocrine: Denies cold intolerance Hematologic/Lymphatic: Hematologic/Lymphatic: Reports as per HPI Allergic/Immunologic: Allergic/Immunologic: Reports no additional allergic/immunologic complaints a
--- NOTE | 2022-06-11 13:44 | PM.CNCAR ---
Assessment and Plan Assessment and plan (1) GI bleed: Code(s): K92.2 - Gastrointestinal hemorrhage, unspecified Status: Acute Assessment and Plan: Patient presents with 1 episode of melena while taking Eliquis 5 mg b.i.d. for below the knee DVT, as well as aspirin plus Plavix for his saphenous vein graft patency. Fortunately hemodynamically stable. Endoscopy tomorrow. [id number] DVTs have a lower risk of embolization. My thought is to recheck a right lower extremity Doppler and if the DVT has resolved, discontinue Eliquis and resume at least Plavix soon, resuming aspirin in the next few days/weeks as well. (2) CAD (coronary artery disease): Code(s): I25.10 - Atherosclerotic heart disease of [place] coronary artery without angina pectoris Status: Acute Assessment and Plan: History of CABG and redo CABG. All of coronary circulation goes through a saphenous vein graft to the Left anterior descending, so it is very important to continue some type of anticoagulation or anti-platelet agent. Continue carvedilol, atorvastatin Stable so far. (3) DVT (deep venous thrombosis): Code(s): I82.409 - Acute embolism and thrombosis of unspecified deep veins of unspecified lower extremity Status: Acute Assessment and Plan: Right peroneal DVT diagnosed 05/20/2022. Treated with Eliquis 5 mg b.i.d.--on hold. (4) Chronic combined systolic and diastolic heart failure: Code(s): I50.42 - Chronic combined systolic (congestive) and diastolic (congestive) heart failure Status: Chronic Assessment and Plan: Chronic CHF, improved since starting dialysis. Tends to run a low blood pressure. Continue Entresto and carvedilol as blood pressure allows. (5) End stage renal disease on dialysis: Code(s): N18.6 - End stage renal disease; Z99.2 - Dependence on renal dialysis Status: Acute Assessment and Plan: End-stage renal disease, started dialysis in April. History of Present Illness History of Present Illness Consult date/time: 06/11/22 13:44 Reason For Visit: Acute GI Bleed,Anemia,End-stage Renal Disease on D Narrative: Jaime Morrell is a 76-year-old male whom I was asked to see at the request of Dr. Barr for my advice and opinion regarding his anti-platelet agents and anticoagulation in view of his GI bleed. Mr. Morrell is followed by Dr. Richmond for his ischemic cardiomyopathy, CAD status post CABG and redo CABG.? His most recent cardiac catheterization at [facility] in 2019 showed his entire coronary circulation was dependent on a saphenous vein graft to the Left anterior descending.? He also has peripheral vascular disease, chronic systolic and diastolic congestive heart failure (EF 30-35%), chronic kidney disease started hemodialysis in April 2022, ICD, and history orthostasis.? He does have sleep apnea but is intolerant to CPAP, wearing oxygen at night at home.? 12/2021: Admitted for syncope. Entresto reduced for orthostasis and hyperkalemia. Chronic CHF at baseline. 01/2022: Admitted for vertigo and found to be hyperkalemic, and eventually had his Entresto was discontinued. CHF at baseline. 03/2022: Admitted for acute on chronic diastolic heart failure.? He admitted to being noncompliant with diet and salt intake.? He had some nonsustained ventricular tachycardia. 04/2022: Admitted and started on dialysis. Other than volume overload his cardiac status was stable. Entresto resumed. 05/14/2022: Admitted with ascites. Dialyzed. Small-bowel obstruction versus ileus. Hypotension. Entresto, isosorbide and carvedilol held. Atorvastatin discontinued, apparently due to elevated LFTs and cirrhosis. He had a right peroneal DVT and was started on Eliquis 5 mg b.i.d. The patient was readmitted today with melena x1. No dizziness, chest pain or worsening shortness of
[2022-06-11] MEDS: SACUBITRIL/VALSARTAN 24-26 MG TABLET 1 TAB PO ×2 (14:16→21:43)
[2022-06-11] MEDS: OPTI-GEN TAB 1 TABLET PO ×2 (14:16→21:42)
[2022-06-11] MEDS: levoFLOXacin 250 MG/D5W 50 ML 250 MG/50 ML BAG 50 MG IVPB (14:20)
[2022-06-11 18:37] LABS: Glucose Point of Care 113 mg/dl (65-105)
[2022-06-11] MEDS: CHOLECALCIFEROL 1,000 UNITS TABLET 5000 UNITS PO (21:40)
[2022-06-11] MEDS: carvediloL 6.25 MG TABLET PO (21:42)
[2022-06-11 23:17] LABS: Glucose Point of Care 90 mg/dl (65-105)
[2022-06-12] VITALS (24 sets, daily range): BP systolic 82–116; BP diastolic 39–66; PULSE 65–93; RESP 15–22; TEMP 35.3–36.8; O2SAT 91–100
--- NOTE | 2022-06-12 | ECHO_ITS ---
Patient Info Name: Jaime Morrell Age: 76 years : 1945 Gender: Male Ht: 66 in Wt: 169 lbs BSA: 1.91 m2 HR: 78 bpm BP: 103 / 39 mmHg Heart Rhythm: Sinus Rhythm Technical Quality: Good Exam Date: 06/12/2022 4:25 PM Exam Location: [facility] Pul[facility] Exam Room: ICU5 Patient Status: Inpatient Admit Date: 06/12/2022 Staff Ordering Physician: Anirudh Robison MD Communication Manager: Ana Luisa Garcia RDCS Attending Provider: Landy Murray MD Exam Type: CA echo doppler color flow Study Info Indications - S/P CARDIAC ARREST AICD Complete two-dimensional, color flow and Doppler transthoracic echocardiogram is performed. Summary 1. Complete two-dimensional, color flow and Doppler transthoracic echocardiogram is performed. 2. Left ventricular chamber dimension is mildly enlarged. 3. Left ventricular systolic function is severely reduced, estimated at 25-30%. 4. There is mildly increased left ventricular wall thickness. 5. Left ventricular septal wall motion is abnormal with septal motion related to pacing. 6. The left ventricular diastolic function is grade III diastolic dysfunction. 7. Right ventricular chamber dimension is mildly enlarged. 8. Right ventricular systolic function is moderately reduced. 9. Left atrial chamber dimension is moderately enlarged. 10. There is mild mitral valve regurgitation. 11. There is mild tricuspid valve regurgitation. 12. Moderate pulmonary hypertension, estimated pulmonary arterial systolic pressure is 49 mmHg. 13. Left pleural effusion. Left Ventricle Left ventricular chamber dimension is mildly enlarged. Left ventricular systolic function is severely reduced, estimated at 25-30%. There is mildly increased left ventricular wall thickness. Left ventricular septal wall motion is abnormal with septal motion related to pacing. The left ventricular diastolic function is grade III diastolic dysfunction. Right Ventricle Right ventricular chamber dimension is mildly enlarged. Right ventricular systolic function is moderately reduced. Linear artifact in right ventricle suggestive of catheter(s), pacemaker lead(s), or ICD lead(s). Left Atria Left atrial chamber dimension is moderately enlarged. Right Atria Right atrial chamber dimension is mildly enlarged. Linear artifact in the right atrium suggestive of catheter(s), pacemaker lead(s), or ICD lead(s). Aortic Valve The aortic valve is trileaflet. There is mild aortic valve sclerosis. There is no aortic valve stenosis. There is trace aortic valve regurgitation. Pulmonic Valve The pulmonic valve is normal. There is trace pulmonic regurgitation. Mitral Valve The mitral valve has thickened leaflets. There is mild mitral valve regurgitation. The mitral valve annulus is moderately calcified. Tricuspid Valve The tricuspid valve leaflets are normal. There is mild tricuspid valve regurgitation. Moderate pulmonary hypertension, estimated pulmonary arterial systolic pressure is 49 mmHg. Pericardium/Pleural The pericardium appears normal. There is no pericardial effusion. Left pleural effusion. Inferior Vena Cava Normal inferior vena cava with no collapse upon inspiration consistent with elevated right atrial pressure, 10 mmHg. Aorta The aortic root size at the sinus of Valsalva is normal. There is mild aortic atherosclerosis. Left Ventricular Outflow Tract Name
[2022-06-12 09:19] LABS: Immature Reticulocyte Fraction 38.5 % (3.0-15.9); Reticulocyte Hemoglobin Conten 31.9 pg (28.2-35.7); Reticulocyte Percent 3.17 % (0.7-4.3); Reticulocytes Absolute 0.08 B/L (32.2-175.7)
[2022-06-12 10:07] LABS: Hepatitis B Surface Antigen Negative (Negative)
[2022-06-12 10:24] LABS: Hepatitis B Surface Anti Res Negative
[2022-06-12 10:42] LABS: Iron 45 ug/dL (49-181)
[2022-06-12] MEDS: LEVOTHYROXINE SODIUM 50 MCG TABLET PO (10:42)
[2022-06-12] MEDS: carvediloL 6.25 MG TABLET PO (10:42)
[2022-06-12] MEDS: OPTI-GEN TAB 1 TABLET PO (10:42)
[2022-06-12] MEDS: ATORVASTATIN 40 MG TABLET 80 MG PO (10:42)
[2022-06-12] MEDS: ISOSORBIDE MONONITRATE 60 MG TAB.ER.24H PO (10:43)
[2022-06-12] MEDS: SACUBITRIL/VALSARTAN 24-26 MG TABLET 1 TAB PO (10:43)
[2022-06-12 10:52] LABS: Percent Iron Saturation 18 % (20-50)
[2022-06-12 12:38] LABS: Glucose Point of Care 87 mg/dl (65-105)
--- NOTE | 2022-06-12 12:42 | PM.IMPN ---
Progress Note: A&P Assessment and Plan (1) GI bleed: Code(s): K92.2 - Gastrointestinal hemorrhage, unspecified Status: Acute Assessment and Plan: admit to regular medical floor will hold anticoagulation GI consult Cardiology consult as well for recommendations on antiplatelets and anticoagulation transfuse as needed monitor hemoglobin hematocrit (2) End stage renal disease on dialysis: Code(s): N18.6 - End stage renal disease; Z99.2 - Dependence on renal dialysis Status: Acute Assessment and Plan: dialyzes Sunday and Fridays nephrology consult (3) Antiplatelet or antithrombotic long-term use: Code(s): Z79.02 - nursing home (current) use of antithrombotics/antiplatelets Status: Acute Assessment and Plan: will be holding anticoagulation no recent history of stent (4) Chronic combined systolic and diastolic heart failure: Code(s): I50.42 - Chronic combined systolic (congestive) and diastolic (congestive) heart failure Status: Chronic Assessment and Plan: patient appears to be compensated (5) Coronary artery 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: Code(s): I25.810 - Atherosclerosis of coronary artery bypass graft(s) without angina pectoris Status: Acute Assessment and Plan: chest pain-free restart home med (6) Peripheral vascular disease, unspecified: Code(s): I73.9 - Peripheral vascular disease, unspecified Status: Acute Assessment and Plan: appears to be compensated unchanged (7) Gastro-esophageal reflux disease without esophagitis: Code(s): K21.9 - Gastro-esophageal reflux disease without esophagitis Status: Acute Assessment and Plan: PPI as needed (8) End-stage renal disease on hemodialysis: Code(s): N18.6 - End stage renal disease; Z99.2 - Dependence on renal dialysis Status: Acute Assessment and Plan: continue hemodialysis Subjective Date/time seen: 06/12/22 12:42 No addition bleeding Exam Narrative: patient is laying in a stretcher Const: General: cooperative, comfortable, no acute distress, well developed, alert, awake and ill appearing chronically Nutritional Appearance: average body habitus Orientation/consciousness: patient oriented x3 HENMT: Head: normal to inspection, normocephalic and atraumatic Ears: hearing grossly normal bilaterally Face and sinus: normal facial exam Eyes: General: appearance normal, both eyes and all related structures Pupils: Equal, round and reactive pupils present EOM: EOMs intact bilaterally Neck: Neck: full ROM, no lymphadenopathy and no JVD Thyroid: thyroid normal Lymphatic: no lymphadenopathy noted Resp: Effort & Inspection: normal respiratory effort and able to speak in complete sentences Auscultation: clear to auscultation bilaterally Cardio: Jugular venous distension: no JVD Rate: regular rate Rhythm: regular rhythm Heart sounds: S1 normal heart sound present and S2 normal heart sound present GI: Inspection: scar ( mid abdomen) : General: Yes deferred Skin: Rashes: no rashes Wounds: no wounds Neuro: General: patient oriented x3, CN's II-XI intact bilaterally and Unable to assess gait Cranial nerves: Yes CN's II-XII intact bilaterally and Yes Equal, round and reactive pupils present Cognition (Neuro): normal cognition Speech: normal speech Gait exam (Neuro): Unable to assess gait Motor exam (neuro): 5/5 motor strength present throughout Sensory Exam: No Sensory deficit (Neuro) Extrem: General: normal to inspection, full ROM, no joint enlargement and no pedal edema Objective Data Vital Signs Vital Signs: Vital Signs - 24 hr 06/11/22 13:00 06/11/22 14:00 06/11/22 15:11 Temperature 97.5 F L Pulse Rate 78 75 Respiratory Rate 16 Blood Pressure 86/44 L 100/47 L Pulse Oximetry 100 Oxygen Delivery 06/11/22 16:00 06/11/22 16:00
[2022-06-12] MEDS: SODIUM CHLORIDE 0.9% IV 500 ML 10 ML IV CONT (13:16)
[2022-06-12 13:18] LABS: Glucose Point of Care 83 mg/dl (65-105)
--- NOTE | 2022-06-12 13:38 | WPDANESEPPF ---
Anes - Initial Pre Proc Eval Procedure: Operation Date: 06/12/22 14:00 Proposed Procedures p Esophagogastroduodenoscopy - Joseph Pizarro MD Date/Time: 06/12/22 13:38 Surgeon: Landy Murray MD Pre Op Diagnosis: Acute GI Bleed,Anemia,End-stage Renal Disease on D Patient Data Age: 76 Gender: M Height: 1.68 m Weight: 76.9 kg Last Vital Signs Temp 97.9 F 06/12/22 13:12 Pulse 73 06/12/22 13:12 Resp 20 06/12/22 13:12 BP 103/39 L 06/12/22 13:12 Pulse Ox 100 06/12/22 13:12 O2 Del Method Room Air 06/12/22 13:12 Allergies Allergy/AdvReac Type Severity Reaction Status Date / Time Penicillins Allergy Unknown UNKNOWN Verified 06/11/22 01:58 A CHILD,Unknown Home Medications Medication Instructions Recorded Confirmed Type vit C 250 mg-vit E 90 mg-zinc 40 1 cap PO Q12H 10/20/20 06/11/22 History mg-copper 1 od-[id number]-yosjgq capsule (PreserVision AREDS-2) aspirin 81 mg tablet,delayed 81 mg PO DAILY 01/19/21 06/11/22 History release (Adult Aspirin Regimen) cholecalciferol (vitamin D3) 125 125 mcg PO HS 08/02/21 06/11/22 History mcg (5,000 unit) capsule isosorbide mononitrate 60 mg 60 mg PO DAILY 08/02/21 06/11/22 History tablet,extended release 24 hr levothyroxine 50 mcg tablet 50 mcg PO DAILY #90 tabs 08/29/21 06/11/22 Rx clopidogrel 75 mg tablet (Plavix) 75 mg PO DAILY 05/02/22 06/11/22 History sacubitril 24 mg-valsartan 26 mg 1 tablet PO Q12HR 30 days #60 tabs 05/08/22 06/11/22 Rx tablet (Entresto) carvedilol 12.5 mg tablet (Coreg) 6.25 mg PO Q12HR 05/12/22 06/11/22 History insulin glargine 100 unit/mL (3 5 unit subcut DAILY 05/12/22 06/11/22 History mL) subcutaneous pen (Basaglar KwikPen U-100 Insulin) acetaminophen 325 mg tablet (Mapap 650 mg PO Q4H PRN Mild Pain (1-3) 05/23/22 06/11/22 Rx (acetaminophen)) Or Fever 7 days #28 tabs apixaban 5 mg tablet (Eliquis) 5 mg PO Q12HR 30 days #60 tabs 05/23/22 06/11/22 Rx atorvastatin 80 mg tablet 80 mg PO DAILY 06/11/22 06/11/22 History Laboratory Tests 06/11/22 06/11/22 06/12/22 18:26 23:07 08:52 Absolute Retic Percent Retic Immature Retic Fraction Retic Hgb Content POC Capillary Glucose 113 mg/dl H mg/dl 90 mg/dl mg/dl (65-105) (65-105) Iron 45 ug/dL L ug/dL (49-181) TIBC 248 ug/dL L ug/dL (265-497) % Saturation 18 % L % (20-50) Ferritin 244.00 ng/mL ng/mL (11.1-264) Hep Bs Antigen Hep Bs Antibody 06/12/22 06/12/22 06/12/22 08:53 08:58 11:39 Absolute Retic 0.08 B/L L B/L (32.2-175.7) Percent Retic 3.17 % % (0.7-4.3) Immature Retic Fraction 38.5 % H % (3.0-15.9) Retic Hgb Content 31.9 pg pg (28.2-35.7) POC Capillary Glucose 87 mg/dl mg/dl (65-105) Iron TIBC % Saturation Ferritin Hep Bs Antigen Negative (Negative) Hep Bs Antibody Negative 06/12/22 13:16 Absolute Retic Percent Retic Immature Retic Fraction Retic Hgb Content POC Capillary Glucose 83 mg/dl mg/dl (65-105) Iron TIBC % Saturation Ferritin Hep Bs Antigen Hep Bs Antibody Patient hx anesthesia problems: none Family hx anesthesia problems: none Results Review: All pre-operative results and documents have been reviewed as part of the pre-operative evaluation. [facility] Past Medical History Medical History Abdominal aortic aneurysm Acute on chronic combined systolic and diastolic CHF (congestive heart failure) Arthritis Ascites Carotid stenosis, bilateral Carpal tunnel syndrome Chronic anemia Chronic kidney disease, stage 4 (severe) CKD stage 4 due to type 2 diabetes mellitus COPD (chronic obstructive pulmonary diseas
--- NOTE | 2022-06-12 14:38 | PM.CNNEP ---
Assessment and Plan Additional Plan 1. Jaime is a very pleasant gentleman with end-stage renal disease. He gets dialysis 3 times a week. He had his last treatment on Sunday. volume status looks okay. Potassium is okay. Will get dialysis later today. There are already to on so we will get him done this afternoon later. 2. The patient has black stools. Hemoglobin has not dropped very much considering the black stools for 36 hours. It was 8.5 when he left the hospital on the and 8.1 today. He is on pantoprazole. Will check a reticulocyte count to make sure he is getting enough EPO. We can check an iron level as well since he has bleeding. He may need iron supplements in the hospital. I will write for some erythropoietin on dialysis. 3. the patient has renal osteodystrophy. I will check a renal panel in the morning 4. the patient has hypertension. His blood pressure was low earlier. He is receiving some IV fluids. He is sitting up at the side of the bed comfortably right now. 5. He has congestive cardiomyopathy. He is on Entresto 6. He has hyperlipidemia and is on atorvastatin. 7. He has diabetes. He is on insulin sliding scale and Accu-Cheks. History of Present Illness Reason for Consult Consult date: 06/12/22 Chief Complaint Chief complaint: Acute GI Bleed,Anemia,End-stage Renal Disease on D History of Present Illness Narrative: Jaime is a very pleasant 76-year-old gentleman who has multiple medical problems including end-stage renal disease on dialysis Wednesdays and Fridays under Dr. Ureña, coronary disease status post 5 way bypass, abdominal aortic aneurysm, renal artery stenosis status post stents about 14 years ago, congestive heart failure, COPD, GERD, ulcer in the past, anemia of chronic kidney disease, renal osteodystrophy, hypertension, hypothyroidism, diabetes, sleep apnea using oxygen at night, hyperlipidemia, psoriasis. The patient came in the hospital because he had black stools. He says this is been going on for about 36 hours. He woke up at 1:00 a.m. in the morning on Sunday and had to have a bowel movement. He noted the stools were black. He thought it might go away so waited to morning and then had more black stool so he came to the hospital. He never had any clots of bright red blood. He has not had any nausea or vomiting. No abdominal pain. No chest pain or shortness of breath. He has been going to dialysis and doing well. He has been getting his dry weight. Review of Systems Constitutional: Constitutional: Reports no additional constitutional complaints Eyes: Eyes: Reports no additional eye complaints ENT: Reports system reviewed and no additional complaints, except as documented Cardiovascular: Cardiovascular: Reports no additional cardiovascular complaints Respiratory: Respiratory: Reports no additional respiratory complaints Gastrointestinal: Gastrointestinal: Reports no additional gastrointestinal complaints Genitourinary: Genitourinary: Reports no additional male genitourinary complaints Musculoskeletal: Musculoskeletal: Reports no additional musculoskeletal complaints Integumentary/Breasts: Skin/Breast: Reports system reviewed and no additional complaints, except as docu Neurologic: Reports system reviewed and no additional complaints, except as documented Psychiatric: Psychiatric: Reports no additional psychiatric complaints Endocrine: Endocrine: Reports no additional endocrine complaints [facility] Past Medical History Medical History Abdominal aortic aneurysm Acute on chronic combined systolic and diastolic CHF (congestive heart failure) Arthritis Ascites Carotid stenosis, bilateral Carpal tunnel syndrome Chronic anemia Chronic kidney disease, stage 4 (severe) CKD stage 4 due to type 2 diabetes mellitus COPD (chronic obstructive pulmonary disease) Deep venous thrombosis Essential hyp
[2022-06-12 15:04] LABS: Glucose Point of Care 84 mg/dl (65-105)
--- NOTE | 2022-06-12 15:04 | ECG_ITS ---
Measurements Intervals [place] Rate: 89 P: 12 MD: 140 QRS: -24 QRSD: 131 T: 258 QT: 396 QTc: 484 Interpretive Statements SINUS RHYTHM WITH OCCASIONAL VENTRICULAR PREMATURE COMPLEXES NONSPECIFIC INTRAVENTRICULAR CONDUCTION DELAY ST ABNORMALITY CONSIDER MYOCARDIAL ISCHEMIA LOW-VOLTAGE QRS LIMB LEADS COMPARED TO ECG 05/12/2022 13:04:49 HEART RATE HAS INCREASED AND ST ABNORMALITY SOMEWHAT LESS PROMINENT Electronically Signed On 06-12-2022 16:37:04 CDT by Blas Hinton M.D.
--- NOTE | 2022-06-12 15:10 | PC.NURSE ---
Patient arrived via stretcher to room, intubated with [employer], RT and ICU Director and ICU Charge at side
--- NOTE | 2022-06-12 15:42 | PC.NURSE ---
Received report from CISCO Sumner
[2022-06-12] MEDS: NOREPINEPHRINE 8 MG/D5W 250 ML 8 MG/250 ML BAG 9.38 MG IV CONT (15:45)
--- NOTE | 2022-06-12 15:52 | SUR.OPER ---
Code Blue called at 1443. See anesthesia record. 1500- Pt transferred to ICU 5. Report given to Bailey Preciado RN.
--- NOTE | 2022-06-12 16:10 | WPDPROCEDUR ---
Procedures Central Line Placement Right Femoral: Central Line Date: 07/13/22 Central Line Time: 15:00 Discussed w/ the patient/family/POA,the placement of a central venous catheter, including its clinical necessity/indication & associated potential risks, benifits and alternatives.: Yes The patient/family/POA understand(s) and acknowledge(s) the need to proceed with central venous catheter insertion as an important element of the patient's clinical management.: Yes Consent: I have discussed with the patient and/or surrogate, the non-emergent placement of a central venous catheter, including its clinical necessity/indication and associated potential risks and complications. The patient and/or surrogate understand(s) and acknowledge(s) the need to proceed with central venous catheter insertion as an important element of the patient's clinical management. Time Out Performed: Yes Patient Position: supine Patient placed on monitor/pulse ox: Yes Provider Prep: mask, sterile gown, sterile gloves, Max. sterile barrier precautions, cap and hand hygiene with conventional soap/water or alcohol based hand rub Central line prep: 2% Chlorhexidine scrub Sterile US Technique with sterile gel/sterile probe covers: Yes Central line lumen inserted: triple Complications: other Additional comments: Central line was attempted on the right side. I was able to advance guidewire without any difficulty but unable to dilate. Dilator was meeting resistance after a small distance. Advance the catheter over the guidewire but was unable to as catheter would not advance after a certain distance. Not sure what the reason is patient does have history of surgery at the site as there was a scar from past surgical incision right above inguinal area. Procedure was aborted and pressure was applied at the puncture site. No complications seen at that time.
--- NOTE | 2022-06-12 16:13 | WPDPROCEDUR ---
Procedures Central Line Placement Left Femoral: Central Line Date: 07/13/22 Central Line Time: 15:30 Discussed w/ the patient/family/POA,the placement of a central venous catheter, including its clinical necessity/indication & associated potential risks, benifits and alternatives.: Yes The patient/family/POA understand(s) and acknowledge(s) the need to proceed with central venous catheter insertion as an important element of the patient's clinical management.: Yes Consent: I have discussed with the patient and/or surrogate, the non-emergent placement of a central venous catheter, including its clinical necessity/indication and associated potential risks and complications. The patient and/or surrogate understand(s) and acknowledge(s) the need to proceed with central venous catheter insertion as an important element of the patient's clinical management. Time Out Performed: Yes Patient Position: supine Patient placed on monitor/pulse ox: Yes Provider Prep: mask, sterile gown, sterile gloves, Max. sterile barrier precautions, cap and hand hygiene with conventional soap/water or alcohol based hand rub Central line prep: Povidone-Iodine 1% Sterile US Technique with sterile gel/sterile probe covers: Yes Central line lumen inserted: triple Length (cm): 16 Depth of Insertion (cm): 16 Post Procedure: sutured in place, good blood return, all ports aspirated, flushed, capped, transparent dressing, hemostatic product and aseptic technique maintained throughout procedure Patient tolerated procedure: well Complications: none
--- NOTE | 2022-06-12 16:14 | WPDCNINT ---
Assessment and Plan Assessment and plan (1) End-stage renal disease on hemodialysis: Code(s): N18.6 - End stage renal disease; Z99.2 - Dependence on renal dialysis Status: Acute Assessment and Plan: Nephrology is following and patient was scheduled for hemodialysis today. Will hold hemodialysis at this time as patient had a cardiac arrest and is hemodynamically unstable Check electrolytes now (2) Cardiac arrest: Code(s): I46.9 - Cardiac arrest, cause unspecified Status: Acute Assessment and Plan: Exact etiology not clear but patient has significant coronary artery disease and cardiomyopathy, he received propofol for sedation which itself can cause bradycardia, hypoventilation from sedation during the procedure is another possibility which could have led respiratory acidosis respirating bradycardia and PE arrest. Worsening anemia could be another contributing factor as his hemoglobin is 6.9 Aspiration is also possibility although patient was NPO prior to the procedure because of his GI bleed and for EGD Post resuscitation EKG does not show any ST elevation and shows sinus rhythm with interventricular conduction delay and ST abnormality in lateral leads which are consistent with his old EKGs Check echocardiogram Check electrolytes Check serial troponin Levaquin and Flagyl ABG is ordered and pending IV fluid bolus and Levophed (3) GI bleed: Code(s): K92.2 - Gastrointestinal hemorrhage, unspecified Status: Acute Assessment and Plan: EGD today showed small ulcer which was not bleeding and gastritis PPI IV q.12 hours Hemoglobin checked was 6.9 and will transfuse 1 unit of PRBC Monitor hemoglobin and transfuse additional units as needed (4) DVT (deep venous thrombosis): Code(s): I82.409 - Acute embolism and thrombosis of unspecified deep veins of unspecified lower extremity Status: Acute Assessment and Plan: 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 Anticoagulation held due to GI bleed Doppler of lower extremity does not show any DVT at this time (5) Diabetes: Code(s): E11.9 - Type 2 diabetes mellitus without complications Status: Chronic Assessment and Plan: Sliding scale insulin Hold Lantus (6) Acute on chronic combined systolic and diastolic CHF (congestive heart failure): Code(s): I50.43 - Acute on chronic combined systolic (congestive) and diastolic (congestive) heart failure Status: Acute Assessment and Plan: Patient will need hemodialysis for fluid removal eventually once he stabilizes hemodynamically (7) Acute respiratory failure: Code(s): J96.00 - Acute respiratory failure, unspecified whether with hypoxia or hypercapnia Status: Acute Assessment and Plan: Chest x-ray reviewed-withdraw ET tube by 1 cm Vent settings reviewed ABG pending Patient does have pulmonary edema on his chest x-ray Add Flagyl for anaerobic coverage for possible aspiration (8) Hypotension: Code(s): I95.9 - Hypotension, unspecified Status: Acute Assessment and Plan: Will give 1 L LR bolus and start Levophed Transfuse 1 unit of PRBC Patient is overall volume overloaded hence will avoid giving additional fluids at this time Check lactic acid level Hold cardiac meds Patient is on Levaquin and Flagyl will be added possible aspiration He had blood cultures done yesterday which are pending (9) Encephalopathy: Code(s): G93.40 - Encephalopathy, unspecified Status: Acute Assessment and Plan: Patient is currently unresponsive. He did receive propofol but that should have worn off now. His Code was pretty brief as he only received 1 round of CPR and 1 dose of epinephrine hence it is unlikely the patient has developed anoxic injury. ABG reviewed Check ammonia and TSH Check head CT Will order moderate TTM to keep patient's temperature less than 36 C for next 24 hours Additional Plan DVT p
[2022-06-12 16:21] LABS: Base Excess ABG -5.5 mEq/l (+/-2.0); Carboxyhemoglobin 0.3 % THb (0-2.0); Fractional Inspired Oxygen 100 %; HCO3 ABG 18.6 mEq/l (22.0-26.0); Methemoglobin ABG 0.5 %THb (0-1.5); Oxyhemoglobin 98.3 % THb (90.0-100.0); PCO2 ABG 30.8 mmHg (35.0-45.0); Reduced Hemoglobin 0.9 %THb (0-5.0); Total Hemoglobin 8.2 g/dL (12.0-18.0); pH ABG 7.399 (7.350-7.450)
[2022-06-12 16:22] LABS: Arterial Blood Gas Vent Mode CMV; Arterial Blood Gas Ventilator rate 22 /MIN; Device VENTILATOR; Modified Allen's Test Pass; Site Drawn LEFT RADIAL
[2022-06-12 16:23] LABS: Arterial Blood Gas PEEP 100 cmH2O; Arterial Blood Gas Tidal Volume 450 ml
[2022-06-12 16:31] LABS: Basophils Percent Auto 0.3 % (0.2-1.2); Eosinophils Absolute Auto 0.2 K/mm3 (0-0.3); Eosinophils Percent Auto 1.7 % (0-4.4); Hematocrit 24.1 % (42.0-52.0); Immature Granulocyte Absolute 0.31 K/mm3 (0.00-0.031); Immature Granulocyte Percent A 2.5 % (0-0.5); Lymphocytes Absolute Auto 0.59 K/mm3 (0.9-3.2); Lymphocytes Percent Auto 4.7 % (18.3-44.2); Mean Corpuscular HGB Conc 28.6 g/dl (32-36); Mean Corpuscular Hemoglobin 29.1 pg (26-34); Mean Corpuscular Volume 101.7 fl (80-100); Mean Platelet Volume 11.1 fl (7.4-10.4); Monocytes Absolute Auto 0.4 K/mm3 (0.1-0.6); Monocytes Percent Auto 3.5 % (2.6-8.5); Neutrophils Percent Auto 87.3 % (45.5-73.1); Platelet Count Result 170 k/mm3 (150-375); Red Blood Count 2.37 M/mm3 (4.6-6.20); White Blood Count 12.6 K/mm3 (4.5-10.0)
[2022-06-12 16:39] LABS: INR 1.6; Prothrombin Time 18.5 Seconds (11.1-14.7)
[2022-06-12 16:43] LABS: Partial Thromboplastin Time 38.8 SECONDS (22.3-36.8)
[2022-06-12 16:48] LABS: Alanine Aminotransferase 20 U/L (6-50); Albumin Level 2.7 g/dL (3.5-5.1); Alkaline Phosphatase 88 U/L (38-126); Anion Gap 15 mmol/L (8-16); Aspartate Amino Transferase 34 U/L (17-59); Bilirubin,Total 0.4 mg/dL (0.2-1.3); Blood Urea Nitrogen 55 mg/dL (9-20); Calcium 8.1 mg/dL (8.4-10.2); Carbon Dioxide 21 mmol/L (22-30); Chloride 97 mmol/L (98-107); Estimated CRCL calculation 10 ml/min; Estimated Glomerular Filt Rate 10; Glucose 118 mg/dL (65-110); Magnesium 1.8 mg/dL (1.6-2.3); Potassium 4.6 mmol/L (3.4-5.0); Sodium 133 mmol/L (137-145)
[2022-06-12 16:56] LABS: Hemoglobin 6.9 g/dL (14.0-18.0)
[2022-06-12 16:58] LABS: Anisocytosis 1+ (NORMAL); Crenated RBC 1+ (NORMAL); Hypochromasia 1+ (NORMAL); Ovalocytes 1+ (NORMAL); Platelet Estimate Adequate (Adequate)
[2022-06-12] MEDS: LACTATED RINGERS 1,000 ML 999 ML IV CONT (16:59)
[2022-06-12 17:02] LABS: Troponin I 0.083 ng/mL (0.000-0.034)
[2022-06-12] MEDS: levoFLOXacin 250 MG/D5W 50 ML 250 MG/50 ML BAG 100 MG IVPB (17:24)
[2022-06-12 17:27] LABS: Alveolar/Arterial O2 Gradient 328.7 mmHg; Base Excess ABG -3.3 mEq/l (+/-2.0); Fractional Inspired Oxygen 100 %; HCO3 ABG 20.9 mEq/l (22.0-26.0); Oxygen Content ABG 12.2 %vol (16.0-22.0); Oxygen Saturation ABG 99.8 % (95.0-100.0); Oxyhemoglobin 98.8 % THb (90.0-100.0); PCO2 ABG 33.5 mmHg (35.0-45.0); PO2 ABG 350.8 mmHg (80.0-100.0); PO2 FiO2 Ratio Arterial Blood 3.51 %; Total Hemoglobin 8.1 g/dL (12.0-18.0); pH ABG 7.412 (7.350-7.450)
[2022-06-12 17:29] LABS: Arterial Blood Gas Ventilator rate 22 /MIN; Device VENTILATOR; Modified Allen's Test Pass; Site Drawn LEFT RADIAL
[2022-06-12 17:30] LABS: Arterial Blood Gas PEEP 10 cmH2O; Arterial Blood Gas Tidal Volume 450 ml; Arterial Blood Gas Vent Mode CMV
[2022-06-12 17:32] LABS: Ammonia < 9 umol/L (9-30)
[2022-06-12] MEDS: metroNIDAZOLE 500 MG/ISO 100ML 500 MG/100 ML BAG 100 MG IVPB (18:36)
[2022-06-12] MEDS: CENTRAL LINE FLUSH 10 ML IV PUSH ×2 (18:37→20:25)
[2022-06-12 18:42] LABS: Glucose Point of Care 116 mg/dl (65-105)
[2022-06-12] MEDS: MAGNESIUM SULF 1 GM/D5W 100 ML 1 GM/100 ML BAG IVPB (19:26)
[2022-06-12] MEDS: PANTOPRAZOLE SODIUM IV 40 MG VIAL IV PUSH (20:24)
[2022-06-12 20:39] LABS: Add Urine Microscopic? YES; Appearance Urine Clear (Clear); Bilirubin Urine 1+ (Negative); Blood Urine Negative (Negative); Color Urine Yellow (Yellow); Glucose Urine UA Negative (Negative); Ketones Urine Trace mg/dL (Negative); Leukocyte Esterase Ur Negative LEU/UL (Negative); Nitrate Urine Negative (Negative); Protein Urine 2+ mg/dL (Negative); Urobilinogen Urine 0.2 mg/dL (<2.0)
[2022-06-12 20:40] LABS: Bacteria Urine Trace /hpf; Lactic Acid Reflex 1.7 mmol/L (0.7-2.0); Mucus Urine Rare /lpf; Squamous Epithelial Cell Urine Rare /hpf (Few)
[2022-06-12 23:44] LABS: Glucose Point of Care 137 mg/dl (65-105)
[2022-06-13] VITALS (34 sets, daily range): BP systolic 96–127; BP diastolic 43–83; PULSE 70–91; RESP 19–22; TEMP 35.4–37; O2SAT 96–100; BMI 28.5
[2022-06-13] MEDS: metroNIDAZOLE 500 MG/ISO 100ML 500 MG/100 ML BAG 100 MG IVPB ×4 (00:47→23:58)
[2022-06-13 00:49] LABS: Hematocrit 29.1 % (42.0-52.0)
[2022-06-13 01:22] LABS: Troponin I 0.323 ng/mL (0.000-0.034)
[2022-06-13 05:02] LABS: Hematocrit 30.4 % (42.0-52.0); Hemoglobin 9.4 g/dL (14.0-18.0); Mean Corpuscular HGB Conc 30.9 g/dl (32-36); Mean Corpuscular Volume 97.1 fl (80-100); Mean Platelet Volume 11.2 fl (7.4-10.4); Platelet Count Result 166 k/mm3 (150-375); Red Blood Count 3.13 M/mm3 (4.6-6.20); Red Cell Distribution Width 17.5 % (11.5-14.5); White Blood Count 11.2 K/mm3 (4.5-10.0)
[2022-06-13] MEDS: CENTRAL LINE FLUSH 10 ML IV PUSH ×4 (05:13→21:32)
[2022-06-13 05:16] LABS: Alanine Aminotransferase 18 U/L (6-50); Alkaline Phosphatase 102 U/L (38-126); Anion Gap 17 mmol/L (8-16); Aspartate Amino Transferase 31 U/L (17-59); Bilirubin,Total 0.6 mg/dL (0.2-1.3); Blood Urea Nitrogen 60 mg/dL (9-20); Calcium 8.7 mg/dL (8.4-10.2); Carbon Dioxide 19 mmol/L (22-30); Chloride 95 mmol/L (98-107); Estimated CRCL calculation 10 ml/min; Estimated Glomerular Filt Rate 10; Glucose 120 mg/dL (65-110); Magnesium 1.9 mg/dL (1.6-2.3); Phosphorus 6.9 mg/dL (2.5-4.5); Potassium 4.7 mmol/L (3.4-5.0); Sodium 131 mmol/L (137-145)
[2022-06-13 05:19] LABS: Alveolar/Arterial O2 Gradient 102.9 mmHg; Base Excess ABG -8.1 mEq/l (+/-2.0); Carboxyhemoglobin 0.3 % THb (0-2.0); Fractional Inspired Oxygen 40 %; HCO3 ABG 16.2 mEq/l (22.0-26.0); Methemoglobin ABG 0.3 %THb (0-1.5); Oxygen Content ABG 15.1 %vol (16.0-22.0); Oxygen Saturation ABG 98.9 % (95.0-100.0); Oxyhemoglobin 97.5 % THb (90.0-100.0); PCO2 ABG 29.4 mmHg (35.0-45.0); PO2 ABG 148.5 mmHg (80.0-100.0); PO2 FiO2 Ratio Arterial Blood 3.71 %; Reduced Hemoglobin 1.9 %THb (0-5.0); Total Hemoglobin 10.8 g/dL (12.0-18.0)
[2022-06-13 05:20] LABS: Arterial Blood Gas Vent Mode CMV; Arterial Blood Gas Ventilator rate 22 /MIN; Device VENTILATOR; Modified Allen's Test Pass; Site Drawn LEFT BRACHIAL
[2022-06-13 05:21] LABS: Arterial Blood Gas PEEP 10 cmH2O; Arterial Blood Gas Tidal Volume 450 ml
--- NOTE | 2022-06-13 07:12 | WPDANESPN ---
Anes - Prog Note Post-Op Date/Time: 06/13/22 07:12 Cardiovascular status: other Respiratory status: other Airway patency: other Mental status: other Post-Op hydration status: other Vital Signs: Last Vital Signs Temp 35.8 C L 06/13/22 06:00 Pulse 74 06/13/22 06:00 Resp 22 H 06/13/22 06:00 BP 119/65 06/13/22 06:00 Pulse Ox 100 06/13/22 06:00 O2 Del Method Mechanical Ventilation 06/13/22 04:55 FiO2 40 06/13/22 04:55 Pain Score (VAS): unable to assess I/O: Intake & Output 06/12/22 06/12/22 06/13/22 15:59 23:59 07:59 Intake Total 1530 100 Output Total 30 Balance 1530 70 Laboratory Tests 06/13/22 04:41 06/13/22 04:41 06/11/22 06/12/22 06/12/22 02:13 08:52 08:53 WBC RBC Hgb Hct MCV MCH MCHC RDW Plt Count MPV Immature Gran % (Auto) Neut % (Auto) Lymph % (Auto) [place] % (Auto) Eos % (Auto) Baso % (Auto) Lymph # (Auto) [place] # (Auto) Eos # (Auto) Baso # (Auto) Abs Immat Gran (auto) Absolute Neuts (auto) Absolute Nucleated RBC Nucleated RBC % Platelet Estimate Hypochromasia Anisocytosis Ovalocytes Crenated Cell Absolute Retic 0.08 L Percent Retic 3.17 Immature Retic Fraction 38.5 H Retic Hgb Content 31.9 PT INR APTT Puncture Site ABG pH ABG pCO2 ABG pO2 ABG PO2/FiO2 Ratio ABG HCO3 ABG O2 Saturation ABG O2 Content ABG Base Excess A-a Gradient Oxyhemoglobin Carboxyhemoglobin Methemoglobin Reduced Hemoglobin Total Hemoglobin O2 Delivery Device O2 Liters/Min Minute Volume Vent Rate Vent Mode FiO2 Tidal Volume PEEP Peak Inspir Pressure Pressure Support Sodium Potassium Chloride Carbon Dioxide Anion Gap BUN Creatinine Estim Creat Clear Calc Estimated GFR Glucose POC Capillary Glucose Lactic Acid Calcium Phosphorus Magnesium Iron 45 L TIBC 248 L % Saturation 18 L Ferritin 244.00 Total Bilirubin AST ALT Alkaline Phosphatase Ammonia Troponin I Total Protein Albumin TSH Urine Color Urine Appearance Urine pH Ur Specific [place] Urine Protein Urine Glucose (UA) Urine Ketones Ur Blood (Man) Urine Nitrate Urine Bilirubin Urine Urobilinogen Leukocyte Esterase Rfl Urine RBC Urine WBC Ur Squamous Epith Cells Urine Bacteria Urine Mucus Hep Bs Antigen Hep Bs Antibody Blood Type O Positive Antibody Screen Negative Enhanced Crossmatch See Detail 06/12/22 06/12/22 06/12/22 08:58 11:39 13:16 WBC RBC Hgb Hct MCV MCH MCHC RDW Plt Count MPV Immature Gran % (Auto) Neut % (Auto) Lymph % (Auto) [place] % (Auto) Eos % (Auto) Baso % (Auto) Lymph # (Auto) [place] # (Auto) Eos # (Auto) Baso # (Auto) Abs Immat Gran (auto) Absolute Neuts (auto) Absolute Nucleated RBC Nucleated RBC % Platelet Estimate Hypochromasia Anisocytosis Ovalocytes Crenated Cell Absolute Retic Percent Retic Immature Retic Fraction Retic Hgb Content PT INR APTT Puncture Site ABG pH ABG pCO2 ABG pO2 ABG PO2/FiO2 Ratio ABG HCO3 ABG O2 Saturation ABG O2 Content ABG Base Excess A-a Gradient Oxyhemoglobin Carboxyhemoglobin Methemoglobin Reduced Hemoglobin Total Hemoglobin O2 Delivery Device O2 Liters/Min Minute Volume Vent Rate Vent Mode FiO2 Tidal Volume PEEP Peak Inspir Pressure Pressure Support Sodium Potassium Chloride Carbon Dioxide Anion Gap BUN Creatinine Estim Creat Clear Calc Estimated GFR Glucose POC Capillary Glucose 87 83 Lactic Acid Calcium Phosphorus Magnesium Iron
--- NOTE | 2022-06-13 08:56 | WPDINTPN ---
Progress Note: A&P Assessment and Plan (1) Cardiac arrest: Code(s): I46.9 - Cardiac arrest, cause unspecified Status: Acute Assessment and Plan: Exact etiology not clear but patient has significant coronary artery disease and cardiomyopathy, he received propofol for sedation which itself can cause bradycardia, hypoventilation from sedation during the procedure is another possibility which could have led to respiratory acidosis, respiratory failure, bradycardia and PEA arrest -Worsening anemia could be another contributing factor as his hemoglobin is 6.9 -Aspiration is also possibility although patient was NPO prior to the procedure because of his GI bleed and for EGD Post resuscitation EKG does not show any ST elevation and shows sinus rhythm with interventricular conduction delay and ST abnormality in lateral leads which are consistent with his old EKGs -troponins have plateaued -patient on Levaquin (06/11) and Flagyl (06/12) (for possible SBP was started by GI) -OFF LEVOPHED -06/12/2022: Cardiac echocardiogram: LV systolic function is severely reduced with EF of 25-30%, grade 3 diastolic dysfunction, RV systolic function is moderately reduced, mild mitral valve regurg, mild tricuspid valve regurg, moderate pulmonary hypertension with RVSP of 49 mmHg. (2) Acute respiratory failure: Code(s): J96.00 - Acute respiratory failure, unspecified whether with hypoxia or hypercapnia Status: Acute Assessment and Plan: Respiratory failure likely related to cardiac arrest Chest x-ray 06/13: Worsened airspace opacities in left mid and lower lung zones, consistent with atelectasis versus pneumonia. Stable small left pleural effusion. Cardiomegaly. Patient currently on CMV mode of ventilation, peep of 10, 40% FiO2, will decrease PEEP to 8 ABGs reviewed Patient does have pulmonary edema on his chest x-ray, dialysis to be done today Continue Levaquin, Flagyl for anaerobic coverage for possible aspiration (3) End-stage renal disease on hemodialysis: Code(s): N18.6 - End stage renal disease; Z99.2 - Dependence on renal dialysis Status: Acute Assessment and Plan: Patient has a history of end-stage renal disease and started on hemodialysis in April 2022 -appreciate nephrology following the patient, -dialysis to be done today, with possible fluid removal (4) GI bleed: Code(s): K92.2 - Gastrointestinal hemorrhage, unspecified Status: Acute Assessment and Plan: 06/12 EGD showed small ulcer which was not bleeding and gastritis, hiatal hernia PPI IV q.12 hours 06/12 Hemoglobin was 6.9, transfuse1 unit of PRBC -repeat hemoglobin this morning is 9.4 Monitor hemoglobin and transfuse additional units as needed (5) DVT (deep venous thrombosis): Code(s): I82.409 - Acute embolism and thrombosis of unspecified deep veins of unspecified lower extremity Status: Acute Assessment and Plan: 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uire dialysis for fluid removal (8) Hypotension: Code(s): I95.9 - Hypotension, unspecified Status: Acute Assessment and Plan: Patient was hypotensive post cardiac arrest, was given 1 L of LR bolus, was briefly on Levophed, patient did get a unit of packed RBCs and Levophed was then discontinued -patient is volume overload - Lactic acid of 1.7
[2022-06-13] MEDS: ATORVASTATIN 40 MG TABLET 80 MG PO (10:32)
[2022-06-13] MEDS: MINERAL OIL/WHITE PETROLATUM OINTMENT 1 APPLIC EACH EYE ×2 (10:32→21:29)
[2022-06-13] MEDS: LEVOTHYROXINE SODIUM 50 MCG TABLET PO (10:32)
[2022-06-13] MEDS: OPTI-GEN TAB 1 TABLET PO (10:32)
[2022-06-13 10:33] LABS: Glucose Point of Care 113 mg/dl (65-105)
[2022-06-13] MEDS: PANTOPRAZOLE SODIUM IV 40 MG VIAL IV PUSH ×2 (10:33→21:29)
[2022-06-13 10:46] LABS: Hematocrit 29.5 % (42.0-52.0); Hemoglobin 9.4 g/dL (14.0-18.0)
--- NOTE | 2022-06-13 11:47 | PM.PNNEP ---
Progress Note: A&P Additional Plan 1. Jaime is a very pleasant gentleman with end-stage renal disease. He gets dialysis 3 times a week. He had his last treatment on Sunday. he is due for dialysis today since he missed yesterday because of the cardiac arrest. Because he just had the arrest, I am not going to take any fluid off today. Does have a little bit of swelling but his oxygenation is okay and we can come back tomorrow if he tolerates dialysis today. 2. The patient has black stools. Hemoglobin has not dropped very much considering the black stools for 36 hours. It was 8.5 when he left the hospital on the and 8.1 today. He is on pantoprazole. reticulocyte count is okay. Will continue Epogen. 3. the patient has renal osteodystrophy. I will check a renal panel in the morning 4. the patient has hypertension. Blood pressure meds are on hold. 5. He has congestive cardiomyopathy. 6. He has hyperlipidemia and is on atorvastatin. 7. He has diabetes. He is on insulin sliding scale and Accu-Cheks. Subjective Date/time seen: 06/13/22 11:47 Interval history: Jaime had a cardiac arrest yesterday. He had a short amount of CPR and eventually recovered. He was on norepinephrine for a while but is off of this now. He has not received any sedatives recently but is still not very interactive. His son mentioned to that propofol wore off very slowly for this patient last time he had this medication. He is due for dialysis today. Exam Narrative: WDWN in NAD skin no rash head ncat lungs Coarse breath sounds bilaterally cor reg no rub abd BS+ nontender and soft ext 1-2+ edema. Objective Data Vital Signs Vital Signs: Vital Signs - 24 hr 06/12/22 13:12 06/12/22 12:00 06/12/22 12:00 Temperature 36.6 C 36.8 C Pulse Rate 73 65 Respiratory Rate 20 22 H Blood Pressure 103/39 L 104/44 L Pulse Oximetry 100 100 Oxygen Delivery Room Air Room Air Fraction of Inspired Oxygen 06/12/22 16:00 06/12/22 15:45 06/12/22 12:00 Temperature Pulse Rate 67 70 Respiratory Rate Blood Pressure 82/49 L Pulse Oximetry 95 Oxygen Delivery Mechanical Ventilation Fraction of Inspired Oxygen 100 06/12/22 16:41 06/12/22 16:00 06/12/22 18:00 Temperature Pulse Rate 80 83 93 Respiratory Rate Blood Pressure Pulse Oximetry 91 Oxygen Delivery Mechanical Ventilation Fraction of Inspired Oxygen 100 06/12/22 19:59 06/12/22 20:02 06/12/22 19:30 Temperature 35.6 C L Pulse Rate 71 70 71 Respiratory Rate 22 H Blood Pressure 101/55 L 98/61 L Pulse Oximetry 100 100 Oxygen Delivery Mechanical Ventilation Fraction of Inspired Oxygen 40 06/12/22 20:14 06/12/22 21:00 06/12/22 21:14 Temperature 35.5 C L 35.4 C L Pulse Rate 70 70 66 Respiratory Rate 22 H 22 H 20 Blood Pressure 116/62 99/53 L Pulse Oximetry 100 100 100 Oxygen Delivery Mechanical Ventilation Fraction of Inspired Oxygen 40 06/12/22 22:14 06/12/22 20:00 06/12/22 20:00 Temperature 35.3 C L 35.6 C L Pulse Rate 71 70 72 Respiratory Rate 20 15 Blood Pressure 114/66 94/53 L Pulse Oximetry 100 100 Oxygen Delivery Fraction of Inspired Oxygen 06/12/22 22:00 06/12/22 21:00 06/12/22 22:00 Temperature 35.4 C L 35.3 C L Pulse Rate 72 66 71 Respiratory Rate 20 22 H Blood Pressure 99/53 L 114/66 Pulse Oximetry 100 100 Oxygen Delivery Fraction of Inspired Oxygen 06/12/22 23:14 06/12/22 23:22 06/12/22 23:12 Temperature Pulse Rate 71 74 Respiratory Rate 21 H Blood Pressure Pulse Oximetry 100 100 Oxygen Delivery Mechanical Ventilation Mechanical Ventilation Fraction of Inspired Oxygen 40 40 40 06/13/22 00:00 06/13/22 00:00 06/13/22 02:00 Temperature 35.4 C L Pulse Rate 74 70 74 Respiratory Rate 22 H Blood Pressure 115/62 Pulse Oximetry 100 Oxygen Delivery Fraction of Inspired Oxygen 06/13/22 02:00 06/13/22 02:24
--- NOTE | 2022-06-13 12:26 | PM.IMPN ---
Progress Note: A&P Assessment and Plan (1) Cardiac arrest: Code(s): I46.9 - Cardiac arrest, cause unspecified Status: Acute Assessment and Plan: Exact etiology not clear -likely related to propofol exposure and ventilatory issues or possibly related to aspiration. Nonetheless patient is currently not sedated but he is on the ventilator. Continue management per ICU (2) Acute respiratory failure: Code(s): J96.00 - Acute respiratory failure, unspecified whether with hypoxia or hypercapnia Status: Acute Assessment and Plan: Respiratory failure likely related to cardiac arrest Chest x-ray 06/13: Worsened airspace opacities in left mid and lower lung zones, consistent with atelectasis versus pneumonia. Stable small left pleural effusion. Cardiomegaly. Continue vent support Continue Levaquin, Flagyl for anaerobic coverage for possible aspiration (3) End-stage renal disease on hemodialysis: Code(s): N18.6 - End stage renal disease; Z99.2 - Dependence on renal dialysis Status: Acute Assessment and Plan: Patient has a history of end-stage renal disease and started on hemodialysis in April 2022 -appreciate nephrology following the patient, -dialysis to be done today (4) GI bleed: Code(s): K92.2 - Gastrointestinal hemorrhage, unspecified Status: Acute Assessment and Plan: No active bleeding noted. Continue PPI. (5) DVT (deep venous thrombosis): Code(s): I82.409 - Acute embolism and thrombosis of unspecified deep veins of unspecified lower extremity Status: Acute Assessment and Plan: 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uire dialysis for fluid removal (8) Hypotension: Code(s): I95.9 - Hypotension, unspecified Status: Acute Assessment and Plan: Managed per ICU (9) Encephalopathy: Code(s): G93.40 - Encephalopathy, unspecified Status: Acute Assessment and Plan: See above Subjective Date/time seen: 06/13/22 12:26 Patient is on the vent currently. Status post cardiac arrest yesterday. Spontaneous Fdbross was obtained. Patient is now on hypothermic protocol. Etiology of cardiac arrest unknown likely related propofol exposure are possible aspiration. Patient is now managed for the ICU Exam Narrative: General: Pt is unresponsive, intubated and on mechanical ventilation HEENT: Pupils are dilated, reactive but sluggish, ETT in place, sclera is clear Lungs/Chest: Trachea central Coarse BS B/L, bilateral crackles Cardiac: RRR tachycardia Normal S1 S2. No murmurs Abdomen: Decreased bowel sounds. Obese. Soft. NT. ND. Scar from past surgical incision midline and right inguinal area Extremities: Bilateral pitting edema present on both lower extremities : Golden in place Neurologic: Patient is intubated, not on any sedation. Eyes are open but does not blink to threat, withdraws to pain stimulus in all extremities. Patient does not really follow simple commands Const: General: cooperative, comfortable, no acute distress, well developed, alert, awake and ill appearing chronically Nutritional Appearance: average body habitus Orientation/consciousness: patient oriented x3 HENMT: Head: normal to inspection, normocephalic and atraumatic Ears: hearing grossly normal bilaterally Face and sinus: normal facial exam
--- NOTE | 2022-06-13 12:45 | PM.PNCARD ---
Progress Note: A&P Assessment and Plan (1) GI bleed: Code(s): K92.2 - Gastrointestinal hemorrhage, unspecified <GENEVA Lino - Last Filed: 06/13/22 15:06> Status: Acute <GENEVA Lino - Last Filed: 06/13/22 15:06> Assessment and Plan: Patient presents with 1 episode of melena while taking Eliquis 5 mg b.i.d. for below the knee DVT, as well as aspirin plus Plavix for his saphenous vein graft patency. H&H improved Endoscopy showed erosive/ulcerative gastritis but no active bleeding. Recommendation that ASA, plavix could be restarted in 4-5 days Apixaban has been discontinued at this point, repeat LE venous Dopplers did not show any DVT in R lower limb <GENEVA Lino - Last Filed: 06/13/22 15:06> (2) CAD (coronary artery disease): Code(s): I25.10 - Atherosclerotic heart disease of [place] coronary artery without angina pectoris <GENEVA Lino - Last Filed: 06/13/22 15:06> Status: Acute <GENEVA Lino - Last Filed: 06/13/22 15:06> Assessment and Plan: History of CABG and redo CABG. All of coronary circulation goes through a saphenous vein graft to the Left anterior descending, so it is very important to continue some type of anticoagulation or anti-platelet agent. Continue carvedilol, atorvastatin Stable so far. <GENEVA Lino - Last Filed: 06/13/22 15:06> (3) DVT (deep venous thrombosis): Code(s): I82.409 - Acute embolism and thrombosis of unspecified deep veins of unspecified lower extremity <GENEVA Lino - Last Filed: 06/13/22 15:06> Status: Acute <GENEVA Lino - Last Filed: 06/13/22 15:06> Assessment and Plan: Right peroneal DVT diagnosed 05/20/2022. As above, no DVT on repeat Doppler. Apixaban discontinued. <GENEVA Lino - Last Filed: 06/13/22 15:06> (4) Chronic combined systolic and diastolic heart failure: Code(s): I50.42 - Chronic combined systolic (congestive) and diastolic (congestive) heart failure <GENEVA Lino - Last Filed: 06/13/22 15:06> Status: Chronic <GENEVA Lino - Last Filed: 06/13/22 15:06> Assessment and Plan: Chronic CHF, improved since starting dialysis. HF meds on hold currently due to hypotension, patient on norepinephrine <GENEVA Lino - Last Filed: 06/13/22 15:06> (5) End stage renal disease on dialysis: Code(s): N18.6 - End stage renal disease; Z99.2 - Dependence on renal dialysis <GENEVA Lino - Last Filed: 06/13/22 15:06> Status: Acute <GENEVA Lino - Last Filed: 06/13/22 15:06> Assessment and Plan: End-stage renal disease, started dialysis in April. <GENEVA Lino - Last Filed: 06/13/22 15:06> (6) Cardiac arrest: Code(s): I46.9 - Cardiac arrest, cause unspecified <GENEVA Lino - Last Filed: 06/13/22 15:06> Status: Acute <GENEVA Lino - Last Filed: 06/13/22 15:06> Assessment and Plan: Bradycardia and PEA arrest Etiology unclear. Possibly related to sedation with propofol, hypotension. He does have an ICD in place though, so significant bradycardia should not be possible with back up pacing. Will have ICD interrogated. On TTS protocol. Remains intubated but not sedated. Continue supportive care. <GENEVA Lino - Last Filed: 06/13/22 15:06> Additional Plan ATTENDING ADDENDUM: I agree with above documentation and plan of care as outlined. <Blas Hinton MD - Last Filed: 06/13/22 15:23> Subjective Date/time seen: 06/13/22 12:45 Cardiology follow up for ICMY, CAD, cardiac arrest Unfortunately suffered PEA arrest during EGD yesterday. He is now in the ICU intubated and on pressor support. <GENEVA Lino - Last Filed: 06/13/22 15:06> Review of
[2022-06-13] MEDS: levoFLOXacin 250 MG/D5W 50 ML 250 MG/50 ML BAG 50 MG IVPB (15:30)
--- NOTE | 2022-06-13 16:07 | WPDGIPROGNO ---
Progress Note: A&P Assessment and Plan (1) GI bleed: Code(s): K92.2 - Gastrointestinal hemorrhage, unspecified Status: Acute Assessment and Plan: resolved, no signs of active bleeding but found small gastric ulcers (2) Erosive gastritis: Code(s): K29.60 - Other gastritis without bleeding Status: Acute Assessment and Plan: on ppi (3) Cardiac arrest: Code(s): I46.9 - Cardiac arrest, cause unspecified Status: Acute Assessment and Plan: soon after done with egd patient went in to PEA and received CPR and iv medication he is still unresponsive CT head negative hand presser on board (4) Acute respiratory failure: Code(s): J96.00 - Acute respiratory failure, unspecified whether with hypoxia or hypercapnia Status: Acute (5) CAD (coronary artery disease): Code(s): I25.10 - Atherosclerotic heart disease of [place] coronary artery without angina pectoris Status: Acute (6) Encephalopathy: Code(s): G93.40 - Encephalopathy, unspecified Status: Acute (7) End-stage renal disease on hemodialysis: Code(s): N18.6 - End stage renal disease; Z99.2 - Dependence on renal dialysis Status: Acute (8) Cirrhosis: Code(s): K74.60 - Unspecified cirrhosis of liver Status: Acute Subjective Date/time seen: 06/13/22 16:07 Interval history: egd yesterday with small non-bleeding gastric ulcers when he presented with melena, as soon as I was done with procedure he went to PEA and required 1 round of CPR and medical treatment by anesthesiology, then intubated. Patient is still unresponsive Review of Systems Review of Systems: ROS unobtainable: Yes unobtainable due to endotracheal tube, unobtainable due to medical condition and unobtainable due to mental status Exam Narrative: General: Pt is unresponsive, intubated and on mechanical ventilation HEENT: Pupils are dilated, reactive but sluggish, ETT in place, sclera is clear Lungs/Chest: Trachea central Coarse BS B/L, bilateral crackles Cardiac: RRR tachycardia Normal S1 S2. No murmurs Abdomen: Decreased bowel sounds. Obese. Soft. NT. ND. Scar from past surgical incision midline and right inguinal area Extremities: Bilateral pitting edema present on both lower extremities : Golden in place Neurologic: Patient is intubated, not on any sedation. Eyes are open but does not blink to threat, withdraws to pain stimulus in all extremities. Patient does not really follow simple commands Objective Data Vital Signs Vital Signs: Vital Signs - 24 hr 06/12/22 16:41 06/12/22 18:00 06/12/22 19:59 Temperature 96.1 F L Pulse Rate 80 93 71 Respiratory Rate 22 H Blood Pressure 101/55 L Pulse Oximetry 91 100 Oxygen Delivery Mechanical Ventilation Fraction of Inspired Oxygen 100 06/12/22 20:02 06/12/22 19:30 06/12/22 20:14 Temperature 95.9 F L Pulse Rate 70 71 70 Respiratory Rate 22 H Blood Pressure 98/61 L 116/62 Pulse Oximetry 100 100 Oxygen Delivery Mechanical Ventilation Fraction of Inspired Oxygen 40 06/12/22 21:00 06/12/22 21:14 06/12/22 22:14 Temperature 95.8 F L 95.6 F L Pulse Rate 70 66 71 Respiratory Rate 22 H 20 20 Blood Pressure 99/53 L 114/66 Pulse Oximetry 100 100 100 Oxygen Delivery Mechanical Ventilation Fraction of Inspired Oxygen 40 06/12/22 20:00 06/12/22 20:00 06/12/22 22:00 Temperature 96.0 F L Pulse Rate 70 72 72 Respiratory Rate 15 Blood Pressure 94/53 L Pulse Oximetry 100 Oxygen Delivery Fraction of Inspired Oxygen 06/12/22 21:00 06/12/22 22:00 06/12/22 23:14 Temperature 95.8 F L 95.6 F L Pulse Rate 66 71 71 Respiratory Rate 20 22 H 21 H Blood Pressure 99/53 L 114/66 Pulse Oximetry 100 100 100 Oxygen Delivery Mechanical Ventilation Fraction of Inspired Oxygen 40 06/12/22 23:22 06/12/22 23:12 06/13/22 00:00 Temperature 95.8 F L Pulse Rate 74 74 Respiratory Rate 22 H Blood P
[2022-06-13 16:28] LABS: Glucose Point of Care 103 mg/dl (65-105)
[2022-06-13 16:41] LABS: Hematocrit 32.5 % (42.0-52.0); Hemoglobin 9.8 g/dL (14.0-18.0)
[2022-06-14] VITALS (45 sets, daily range): BP systolic 100–145; BP diastolic 48–89; PULSE 73–117; RESP 14–23; TEMP 36–37.3; O2SAT 97–100
[2022-06-14 00:06] LABS: Glucose Point of Care 110 mg/dl (65-105)
--- NOTE | 2022-06-14 03:51 | PC.NURSE ---
Dr. Stein called at 1930 and informed patient had an episode of emesis around the NG. He ordered an obstructive series and I turned off the feed and placed the NG to LIS.
[2022-06-14 05:01] LABS: Alveolar/Arterial O2 Gradient 83.3 mmHg; Base Excess ABG -0.9 mEq/l (+/-2.0); Carboxyhemoglobin 0.2 % THb (0-2.0); Fractional Inspired Oxygen 35 %; HCO3 ABG 21.1 mEq/l (22.0-26.0); Methemoglobin ABG 0.5 %THb (0-1.5); Oxygen Content ABG 13.7 %vol (16.0-22.0); Oxyhemoglobin 97.2 % THb (90.0-100.0); PCO2 ABG 26.2 mmHg (35.0-45.0); PO2 ABG 135.8 mmHg (80.0-100.0); PO2 FiO2 Ratio Arterial Blood 3.88 %; Reduced Hemoglobin 2.1 %THb (0-5.0); Total Hemoglobin 9.8 g/dL (12.0-18.0)
[2022-06-14 05:03] LABS: Device VENTILATOR; Modified Allen's Test Unable to perform; Site Drawn RIGHT RADIAL; pH ABG 7.524 (7.350-7.450)
[2022-06-14 05:04] LABS: Hematocrit 28.6 % (42.0-52.0); Hemoglobin 8.7 g/dL (14.0-18.0); Mean Corpuscular HGB Conc 30.4 g/dl (32-36); Mean Corpuscular Hemoglobin 29.6 pg (26-34); Mean Corpuscular Volume 97.3 fl (80-100); Mean Platelet Volume 10.4 fl (7.4-10.4); Platelet Count Result 175 k/mm3 (150-375); Red Blood Count 2.94 M/mm3 (4.6-6.20); Red Cell Distribution Width 18.1 % (11.5-14.5); White Blood Count 14.2 K/mm3 (4.5-10.0)
[2022-06-14 05:04] LABS: Arterial Blood Gas PEEP 8 cmH2O; Arterial Blood Gas Tidal Volume 450 ml; Arterial Blood Gas Vent Mode CMV; Arterial Blood Gas Ventilator rate 22 /MIN
[2022-06-14 05:22] LABS: Lactic Acid Reflex 1.3 mmol/L (0.7-2.0)
[2022-06-14 05:44] LABS: Alanine Aminotransferase 14 U/L (6-50); Albumin Level 2.8 g/dL (3.5-5.1); Alkaline Phosphatase 96 U/L (38-126); Anion Gap 14 mmol/L (8-16); Aspartate Amino Transferase 28 U/L (17-59); Bilirubin,Total 0.6 mg/dL (0.2-1.3); Blood Urea Nitrogen 40 mg/dL (9-20); Calcium 8.4 mg/dL (8.4-10.2); Carbon Dioxide 26 mmol/L (22-30); Chloride 93 mmol/L (98-107); Estimated CRCL calculation 14 ml/min; Estimated Glomerular Filt Rate 15; Glucose 106 mg/dL (65-110); Magnesium 1.8 mg/dL (1.6-2.3); Phosphorus 5.2 mg/dL (2.5-4.5); Sodium 133 mmol/L (137-145)
[2022-06-14] MEDS: CENTRAL LINE FLUSH 10 ML IV PUSH ×4 (06:06→20:02)
[2022-06-14] MEDS: ATORVASTATIN 40 MG TABLET 80 MG PO (09:20)
[2022-06-14] MEDS: LEVOTHYROXINE SODIUM 50 MCG TABLET PO (09:20)
[2022-06-14] MEDS: OPTI-GEN TAB 1 TABLET PO ×2 (09:21→20:02)
[2022-06-14] MEDS: MINERAL OIL/WHITE PETROLATUM OINTMENT 1 APPLIC EACH EYE ×2 (09:21→20:02)
[2022-06-14] MEDS: PANTOPRAZOLE SODIUM IV 40 MG VIAL IV PUSH ×2 (09:21→20:02)
[2022-06-14] MEDS: metroNIDAZOLE 500 MG/ISO 100ML 500 MG/100 ML BAG 100 MG IVPB ×2 (09:42→17:07)
--- NOTE | 2022-06-14 11:16 | PM.PNCARD ---
Progress Note: A&P Assessment and Plan (1) Cardiac arrest: Code(s): I46.9 - Cardiac arrest, cause unspecified Status: Acute (2) Hx of CABG: Code(s): Z95.1 - Presence of aortocoronary bypass graft Status: Acute Plan 76-year-old man with end-stage ischemic heart disease as described in the above note as well as many previous notes. This patient has been well aware of the end-stage nature of his disease for a number of years and sadly has now had a PA arrest and appears to be neurologically unresponsive at this time. Supportive care will be continued but at this point I would encourage the patient's family to choose DNR status and comfort measures and if he does not show any signs of neurological improvement relatively soon withdrawal of support would seem appropriate Yehuda Richmond MD [facility] Subjective Date/time seen: Date of service: 06/14/22 11:16 Interval history: Follow-up visit in this 76-year-old man with: Longstanding coronary artery disease with 2 previous coronary bypass operations in significant ischemic cardiomyopathy. Patient was hospitalized with GI bleeding and while in the hospital suffered a PEA arrest. He was course then intubated and brought to the ICU where hypothermia protocol was used. The today the patient is rewarmed and remains unresponsive. Patient has been known to have end-stage ischemic heart disease for several years with only remaining coronary circulation being old vein graft to his LAD. No opportunities were identified for revascularization. This past year the patient progressed to end-stage renal disease and has been on hemodialysis. This patient is well-known to me and was understanding that he was at end-stage disease. Exam Const: Other: Intubated obtunded patient HENMT: Mouth: Yes moist mucous membranes Eyes: Sclera: sclerae normal Neck: Neck: supple and no JVD Resp: Other: Scattered large airway rhonchi noted no rales no wheezing Cardio: Rate: regular rate Rhythm: regular rhythm Other: PMI is laterally displaced no obvious murmur GI: GI Palp: Yes Soft to palpation Auscultation: normal bowel sounds Urinary Catheter: Urinary Catheter: patent and draining Skin: General skin exam: normal color Neuro: Other: Comatose Extrem: Other: No significant edema Objective Data Vital Signs Vital Signs: Vital Signs - 24 hr 06/13/22 11:20 06/13/22 11:40 06/13/22 12:00 Temperature Pulse Rate 83 87 80 Respiratory Rate Blood Pressure 109/64 106/69 111/50 L Pulse Oximetry Oxygen Delivery Fraction of Inspired Oxygen 06/13/22 12:20 06/13/22 12:41 06/13/22 12:55 Temperature 36.1 C L Pulse Rate 74 75 75 Respiratory Rate 22 H Blood Pressure 108/46 L 108/55 L 100/53 L Pulse Oximetry 100 Oxygen Delivery Fraction of Inspired Oxygen 06/13/22 13:30 06/13/22 12:00 06/13/22 12:00 Temperature Pulse Rate 87 Respiratory Rate Blood Pressure Pulse Oximetry 96 100 Oxygen Delivery Mechanical Ventilation Mechanical Ventilation Fraction of Inspired Oxygen 40 40 40 06/13/22 12:00 06/13/22 14:00 06/13/22 12:00 Temperature 36.0 C L 36.3 C L Pulse Rate 74 87 78 Respiratory Rate 22 H 22 H Blood Pressure 105/43 L 113/79 Pulse Oximetry 96 98 Oxygen Delivery Fraction of Inspired Oxygen 06/13/22 14:00 06/13/22 16:00 06/13/22 16:00 Temperature 35.6 C L Pulse Rate 88 91 91 Respiratory Rate 19 Blood Pressure 118/76 Pulse Oximetry 99 Oxygen Delivery Fraction of Inspired Oxygen 06/13/22 16:00 06/13/22 16:00 06/13/22 17:23 Temperature Pulse Rate 87 Respiratory Rate Blood Pressure Pulse Oximetry 100 96 Oxygen Delivery Mechanical Ventilation Mechanical Ventilation Fraction of Inspired Oxygen 40 40 40 06/13/22 18:00 06/13/22 18:00 06/13/22 20:00 Temperature 35.7 C L Pulse Rate 74 74 75 Respiratory Rate 22 H Blood Pressure 96/48 L Pulse
[2022-06-14 11:43] LABS: Glucose Point of Care 82 mg/dl (65-105)
--- NOTE | 2022-06-14 12:29 | WPDGIPROGNO ---
Progress Note: A&P Assessment and Plan (1) Cardiac arrest: Code(s): I46.9 - Cardiac arrest, cause unspecified Status: Acute Assessment and Plan: unfortunately PEA with cardiac arrest, received CPR and iv medication he is still unresponsive, prognosis is guarded CT head negative lead teacher on board (2) GI bleed: Code(s): K92.2 - Gastrointestinal hemorrhage, unspecified Status: Acute Assessment and Plan: resolved, no signs of active bleeding but found small gastric ulcers on ppi (3) Erosive gastritis: Code(s): K29.60 - Other gastritis without bleeding Status: Acute Assessment and Plan: on ppi (4) Acute respiratory failure: Code(s): J96.00 - Acute respiratory failure, unspecified whether with hypoxia or hypercapnia Status: Acute Assessment and Plan: he was intubated after PEA (5) CAD (coronary artery disease): Code(s): I25.10 - Atherosclerotic heart disease of [place] coronary artery without angina pectoris Status: Acute Assessment and Plan: end stage heart disease cardiology on board (6) Encephalopathy: Code(s): G93.40 - Encephalopathy, unspecified Status: Acute (7) End-stage renal disease on hemodialysis: Code(s): N18.6 - End stage renal disease; Z99.2 - Dependence on renal dialysis Status: Acute Assessment and Plan: on dialysis per nephrology (8) Cirrhosis: Code(s): K74.60 - Unspecified cirrhosis of liver Status: Acute Subjective Date/time seen: 06/14/22 12:29 Interval history: he is still unresponsive and intubated Review of Systems Review of Systems: ROS unobtainable: Yes unobtainable due to endotracheal tube and unobtainable due to mental status Exam Const: Other: Intubated obtunded patient HENMT: Mouth: Yes moist mucous membranes Eyes: Sclera: sclerae normal Neck: Neck: supple and no JVD Resp: Other: Scattered rhonchi, no wheezing Cardio: Rate: regular rate Rhythm: regular rhythm GI: GI Palp: Yes Soft to palpation Auscultation: normal bowel sounds Urinary Catheter: Urinary Catheter: patent and draining Skin: General skin exam: normal color Neuro: Other: Comatose Extrem: Other: No significant edema Objective Data Vital Signs Vital Signs: Vital Signs - 24 hr 06/13/22 12:41 06/13/22 12:55 06/13/22 13:30 Temperature 97.0 F L Pulse Rate 75 75 87 Respiratory Rate 22 H Blood Pressure 108/55 L 100/53 L Pulse Oximetry 100 96 Oxygen Delivery Mechanical Ventilation Fraction of Inspired Oxygen 40 06/13/22 14:00 06/13/22 14:00 06/13/22 16:00 Temperature 97.3 F L Pulse Rate 87 88 91 Respiratory Rate 22 H Blood Pressure 113/79 Pulse Oximetry 98 Oxygen Delivery Fraction of Inspired Oxygen 06/13/22 16:00 06/13/22 16:00 06/13/22 16:00 Temperature 96.0 F L Pulse Rate 91 Respiratory Rate 19 Blood Pressure 118/76 Pulse Oximetry 99 100 Oxygen Delivery Mechanical Ventilation Fraction of Inspired Oxygen 40 40 06/13/22 17:23 06/13/22 18:00 06/13/22 18:00 Temperature 96.3 F L Pulse Rate 87 74 74 Respiratory Rate 22 H Blood Pressure 96/48 L Pulse Oximetry 96 99 Oxygen Delivery Mechanical Ventilation Fraction of Inspired Oxygen 40 06/13/22 20:00 06/13/22 20:00 06/13/22 20:00 Temperature Pulse Rate 75 82 82 Respiratory Rate 22 H Blood Pressure Pulse Oximetry 97 98 Oxygen Delivery Mechanical Ventilation Mechanical Ventilation Fraction of Inspired Oxygen 40 40 06/13/22 20:00 06/13/22 20:00 06/13/22 22:00 Temperature 97.7 F Pulse Rate 82 88 Respiratory Rate 22 H Blood Pressure 113/51 L Pulse Oximetry 98 Oxygen Delivery Fraction of Inspired Oxygen 40 06/13/22 22:00 06/14/22 00:00 06/14/22 00:00 Temperature 98.1 F Pulse Rate 86 80 80 Respiratory Rate 22 H 22 H Blood Pressure 115/53 L Pulse Oximetry 100 100 Oxygen Del
[2022-06-14] MEDS: levoFLOXacin 250 MG/D5W 50 ML 250 MG/50 ML BAG 50 MG IVPB (12:51)
--- NOTE | 2022-06-14 13:19 | PCFNICU ---
ICU Rounding Note: Pt current nutrition is Nepro at 20 10 ml/hr. Last recorded weight is 84.4 kg, down from 80.2 kg on admit. Bowel Motility:+BM reported 06/13 Labs Reviewed:GFR 15, BUN 40, Cr 4.0, Hgb 8.7,Hct 28.6, Alb 2.8 Meds Noted: Lipitor, Flagyl, Levophed,Protonix Skin: WNL Additional Notes: Patient remains on mechanical vent. No sedation. Tube feedings held this morning due to vomiting. Obstructive series ordered. Plans to restart tube feedings of Nepro at 10 ml/hr. Plans for dialysis today. Agree with diet orders. Following daily in ICU rounds. Will monitor every Sunday and Sunday.
--- NOTE | 2022-06-14 13:21 | WPDINTPN ---
Progress Note: A&P Assessment and Plan (1) Cardiac arrest: Code(s): I46.9 - Cardiac arrest, cause unspecified Status: Acute Assessment and Plan: Exact etiology not clear but patient has significant coronary artery disease and cardiomyopathy, he received propofol for sedation which itself can cause bradycardia, hypoventilation from sedation during the procedure is another possibility which could have led to respiratory acidosis, respiratory failure, bradycardia and PEA arrest -Worsening anemia could be another contributing factor as his hemoglobin is 6.9 -Aspiration is also possibility although patient was NPO prior to the procedure because of his GI bleed and for EGD Post resuscitation EKG does not show any ST elevation and shows sinus rhythm with interventricular conduction delay and ST abnormality in lateral leads which are consistent with his old EKGs -troponins have plateaued -patient on Levaquin (06/11) and Flagyl (06/12) (for possible SBP was started by GI) -06/14/2022: Had to be restarted on Levophed overnight but is currently off -patient status post target temperature management, currently has been very warm to normal body temperature since 9:00 p.m. on 06/13/2022 -appreciate cardiology following the patient -06/12/2022: Cardiac echocardiogram: LV systolic function is severely reduced with EF of 25-30%, grade 3 diastolic dysfunction, RV systolic function is moderately reduced, mild mitral valve regurg, mild tricuspid valve regurg, moderate pulmonary hypertension with RVSP of 49 mmHg. (2) Acute respiratory failure: Code(s): J96.00 - Acute respiratory failure, unspecified whether with hypoxia or hypercapnia Status: Acute Assessment and Plan: Respiratory failure likely related to cardiac arrest Chest x-ray 06/13: Worsened airspace opacities in left mid and lower lung zones, consistent with atelectasis versus pneumonia. Stable small left pleural effusion. Cardiomegaly. Patient currently on CMV mode of ventilation, peep of 8 and 35% FiO2, ABGs reviewed, ventilator adjusted, respiratory rate and PEEP was decreased Patient does have pulmonary edema on his chest x-ray, dialysis to be done today with removal of fluid, discussed with Nephrology Continue Levaquin, Flagyl for anaerobic coverage for possible aspiration (3) End-stage renal disease on hemodialysis: Code(s): N18.6 - End stage renal disease; Z99.2 - Dependence on renal dialysis Status: Acute Assessment and Plan: Patient has a history of end-stage renal disease and started on hemodialysis in April 2022 -appreciate nephrology following the patient, -dialysis to be done today, with fluid removal (4) GI bleed: Code(s): K92.2 - Gastrointestinal hemorrhage, unspecified Status: Acute Assessment and Plan: 06/12 EGD showed small ulcer which was not bleeding and gastritis, hiatal hernia PPI IV q.12 hours 06/12 Hemoglobin was 6.9, transfuse1 unit of PRBC -repeat hemoglobin this morning is 8.7 Monitor hemoglobin and transfuse additional units as needed (5) DVT (deep venous thrombosis): Code(s): I82.409 - Acute embolism and thrombosis of unspecified deep veins of unspecified lower extremity Status: Acute Assessment and Plan: 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uire dialysis for fluid removal (8) Hypoten
[2022-06-14] MEDS: METOCLOPRAMIDE HCL INJ 10 MG/2 ML VIAL 5 MG IV PUSH ×2 (14:10→17:07)
--- NOTE | 2022-06-14 16:00 | PC.NURSE ---
Resumed levophed drip to maintain blood pressure for dialysis
--- NOTE | 2022-06-14 17:14 | PM.IMPN ---
Progress Note: A&P Assessment and Plan (1) Cardiac arrest: Code(s): I46.9 - Cardiac arrest, cause unspecified Status: Acute Assessment and Plan: Unsure of etiology, appreciate Cardiology and Critical Care consultations (2) Acute respiratory failure: Code(s): J96.00 - Acute respiratory failure, unspecified whether with hypoxia or hypercapnia Status: Acute Assessment and Plan: Aspiration pneumonia is possible, continue antibiotics, continue intubation per Critical Care, wean when able (3) End-stage renal disease on hemodialysis: Code(s): N18.6 - End stage renal disease; Z99.2 - Dependence on renal dialysis Status: Acute Assessment and Plan: Appreciate nephrology consultation for dialysis management (4) GI bleed: Code(s): K92.2 - Gastrointestinal hemorrhage, unspecified Status: Acute Assessment and Plan: Gastritis, small ulcer noted on EGD, monitor hemoglobin, transfuse as needed (5) DVT (deep venous thrombosis): Code(s): I82.409 - Acute embolism and thrombosis of unspecified deep veins of unspecified lower extremity Status: Acute Assessment and Plan: Currently holding Eliquis due to GI bleed (6) Diabetes: Code(s): E11.9 - Type 2 diabetes mellitus without complications Status: Chronic Assessment and Plan: Continue sliding scale insulin Accu-Cheks Hold Lantus (7) Acute on chronic combined systolic and diastolic CHF (congestive heart failure): Code(s): I50.43 - Acute on chronic combined systolic (congestive) and diastolic (congestive) heart failure Status: Acute Assessment and Plan: Appreciate cardiology consultation, fluid management essentially being managed by Nephrology (8) Hypotension: Code(s): I95.9 - Hypotension, unspecified Status: Acute Assessment and Plan: Currently off Levophed, monitor (9) Encephalopathy: Code(s): G93.40 - Encephalopathy, unspecified Status: Acute Assessment and Plan: Patient is currently unresponsive. He did receive propofol for the procedure. His Code was pretty brief as he only received 1 round of CPR and 1 dose of epinephrine hence it is unlikely the patient has developed anoxic injury. 06/13 according the night nurse, the nephew stated that the patient had received propofol for his last procedure and did not wake up for 7 days, this information that was given by the nephew (10) Ileus: Code(s): K56.7 - Ileus, unspecified Status: Acute Assessment and Plan: Patient vomited tube feeds, obstructive series showed possible ileus, OG tube to suction overnight, Reglan x3 Additional Plan DVT prophylaxis -SCDs, no chemoprophylaxis due to GI bleed, anemia Stress ulcer prophylaxis -PPI Nutrition -patient did not tolerate tube feeds, will start trickle tube feeds again today Code Status - Full Code Subjective Date/time seen: 06/14/22 17:14 Interval history: Intubated, not sedated. Essentially unresponsive. Review of Systems Review of Systems: ROS unobtainable: Yes unobtainable due to endotracheal tube and unobtainable due to mental status Exam Narrative: General: Intubated, not sedated, unresponsive HEENT: Atraumatic, normocephalic, mucous membranes moist CV: Regular rate and rhythm, S1, S2 Lungs: Scattered crackles, no wheeze Abdomen: Soft, nondistended Extremities: Normal to inspection Skin: No rashes noted, no lesions or wounds seen Objective Data Vital Signs Vital Signs: Vital Signs - 24 hr 06/13/22 17:23 06/13/22 18:00 06/13/22 18:00 Temperature 96.3 F L Pulse Rate 87 74 74 Respiratory Rate 22 H Blood Pressure 96/48 L Pulse Oximetry 96 99 Oxygen Delivery Mechanical Ventilation Fraction of Inspired Oxygen 40 06/13/22 20:00 06/13/22 20:00 06/13/22 20:00 Temperature Pulse Rate 75 82 82 Respiratory Rate 22 H Blood Pressure Pulse Oximetry 9
[2022-06-14 17:18] LABS: Glucose Point of Care 114 mg/dl (65-105)
--- NOTE | 2022-06-14 18:43 | P.NEURO_ITS ---
Neurology EEG Report General Information Date of Study: 06/14/22 TEST EEG coma DIAGNOSIS Unresponsiveness following cardiac arrest. CONDITION OF RECORDING Coma CLINICAL HISTORY Unresponsiveness following cardiac arrest. EEG DESCRIPTION There was a background of moderate amplitude, generalized synchronous and aschychronous theta activity at 4-5 Hz . Photic stimulation was not performed. Hyperventilation was not performed. Muscle artifacts were noted throughout the recording. IMPRESSION This EEG was abnormal due the presence of moderate, bihemispheric cerebral dysfunction of the type seen most commonly in the setting of moderate toxico- metabolic or anoxic encephalopathy. No epileptiform activity was present. Clinical correlation is recommended.
[2022-06-14] MEDS: HEPARIN SODIUM 1,000 UNITS/ML VIAL 6000 UNITS (19:04)
[2022-06-14] MEDS: ALBUMIN HUMAN 25% 12.5 GM/50ML 50 ML IVPB (19:04)
[2022-06-14] MEDS: CHOLECALCIFEROL 1,000 UNITS TABLET 5000 UNITS PO (20:02)
--- NOTE | 2022-06-14 22:35 | PM.PNNEP ---
Progress Note: A&P Additional Plan 1. Jaime is a very pleasant gentleman with end-stage renal disease. He gets dialysis 3 times a week. getting tx now. remove fluid as tolerated 2. The patient has black stools. Hb 6.9 at one point. then transfused and now 8.7. He is on pantoprazole. reticulocyte count is okay. Will continue Epogen. 3. the patient has renal osteodystrophy. I will check a renal panel in the morning 4. the patient has hypertension. Blood pressure meds are on hold. 5. He has congestive cardiomyopathy. 6. He has hyperlipidemia and is on atorvastatin. 7. He has diabetes. He is on insulin sliding scale and Accu-Cheks. Subjective Date/time seen: 06/14/22 22:35 Interval history: Jaime is still intubated. not sedated. eyes open but not interactive. He is on HD ahi it well so far. going for 3-4 liters off seen at 6:30 pm Exam Narrative: WDWN in NAD skin no rash head ncat lungs Coarse breath sounds bilaterally cor reg no rub abd BS+ nontender and soft ext 1-2+ edema. neuro: no interaction or response. Objective Data Vital Signs Vital Signs: Vital Signs - 24 hr 06/14/22 00:00 06/14/22 00:00 06/14/22 00:00 Temperature Pulse Rate 80 80 Respiratory Rate 22 H Blood Pressure Pulse Oximetry 100 Oxygen Delivery Mechanical Ventilation Fraction of Inspired Oxygen 40 35 06/14/22 00:00 06/13/22 23:00 06/14/22 02:10 Temperature 36.9 C Pulse Rate 80 79 80 Respiratory Rate 22 H Blood Pressure 105/56 L Pulse Oximetry 100 100 100 Oxygen Delivery Mechanical Ventilation Mechanical Ventilation Fraction of Inspired Oxygen 40 35 06/14/22 02:00 06/14/22 02:00 06/14/22 05:05 Temperature 37.2 C Pulse Rate 79 79 83 Respiratory Rate 22 H Blood Pressure 106/55 L Pulse Oximetry 99 99 Oxygen Delivery Mechanical Ventilation Fraction of Inspired Oxygen 35 06/14/22 04:00 06/14/22 04:00 06/14/22 04:00 Temperature Pulse Rate 85 85 Respiratory Rate 22 H Blood Pressure Pulse Oximetry 99 Oxygen Delivery Mechanical Ventilation Fraction of Inspired Oxygen 35 35 06/14/22 04:00 06/14/22 06:00 06/14/22 06:00 Temperature 37.2 C 37.2 C Pulse Rate 85 83 82 Respiratory Rate 22 H 22 H Blood Pressure 105/59 L 106/56 L Pulse Oximetry 99 100 Oxygen Delivery Fraction of Inspired Oxygen 06/14/22 07:17 06/14/22 08:10 06/14/22 09:59 Temperature 37.2 C 37.1 C Pulse Rate 85 75 76 Respiratory Rate 21 H 20 Blood Pressure 114/58 L 105/55 L Pulse Oximetry 99 99 99 Oxygen Delivery Mechanical Ventilation Fraction of Inspired Oxygen 35 06/14/22 10:47 06/14/22 08:00 06/14/22 11:56 Temperature 37.1 C Pulse Rate 73 82 Respiratory Rate 14 Blood Pressure 100/52 L Pulse Oximetry 98 99 Oxygen Delivery Mechanical Ventilation Fraction of Inspired Oxygen 35 35 06/14/22 08:00 06/14/22 10:00 06/14/22 08:00 Temperature Pulse Rate 76 74 Respiratory Rate Blood Pressure Pulse Oximetry 99 Oxygen Delivery Mechanical Ventilation Fraction of Inspired Oxygen 35 06/14/22 12:00 06/14/22 12:00 06/14/22 12:00 Temperature Pulse Rate 78 Respiratory Rate Blood Pressure Pulse Oximetry 99 Oxygen Delivery Mechanical Ventilation Fraction of Inspired Oxygen 35 35 06/14/22 14:31 06/14/22 14:00 06/14/22 15:59 Temperature Pulse Rate 91 89 113 H Respiratory Rate Blood Pressure 145/80 H Pulse Oximetry 98 Oxygen Delivery Mechanical Ventilation Fraction of Inspired Oxygen 35 06/14/22 16:00 06/14/22 16:00 06/14/22 15:58 Temperature Pulse Rate 117 H Respiratory Rate Blood Pressure 145/80 H Pulse Oximetry 99 Oxygen Delivery Mechanical Ventilation Fraction of Inspired Oxygen 35 35 06/14/22 15:45 06/14/22 17:00 06/14/22 16:00 Temperature 37.3 C Pulse Rate 89 91 106 H Respiratory Rate 20 Blood Pressure 107/56 L 125/87 137/64
[2022-06-14 23:13] LABS: Glucose Point of Care 103 mg/dl (65-105)
[2022-06-15] VITALS (25 sets, daily range): BP systolic 96–115; BP diastolic 43–92; PULSE 75–88; RESP 10–23; TEMP 37–37.7; O2SAT 96–99
[2022-06-15] MEDS: metroNIDAZOLE 500 MG/ISO 100ML 500 MG/100 ML BAG 100 MG IVPB ×3 (00:19→17:39)
[2022-06-15] MEDS: METOCLOPRAMIDE HCL INJ 10 MG/2 ML VIAL 5 MG IV PUSH (00:20)
[2022-06-15] MEDS: ACETAMINOPHEN 325 MG TABLET 650 MG PO (03:54)
[2022-06-15] MEDS: CENTRAL LINE FLUSH 10 ML IV PUSH ×4 (05:00→22:27)
[2022-06-15 05:11] LABS: Hematocrit 28.3 % (42.0-52.0); Hemoglobin 8.6 g/dL (14.0-18.0); Mean Corpuscular HGB Conc 30.4 g/dl (32-36); Mean Corpuscular Hemoglobin 29.7 pg (26-34); Mean Corpuscular Volume 97.6 fl (80-100); Mean Platelet Volume 10.7 fl (7.4-10.4); Platelet Count Result 165 k/mm3 (150-375); White Blood Count 12.1 K/mm3 (4.5-10.0)
[2022-06-15 05:33] LABS: Alanine Aminotransferase 13 U/L (6-50); Albumin Level 2.8 g/dL (3.5-5.1); Alkaline Phosphatase 107 U/L (38-126); Anion Gap 10 mmol/L (8-16); Aspartate Amino Transferase 29 U/L (17-59); Bilirubin,Total 0.6 mg/dL (0.2-1.3); Blood Urea Nitrogen 25 mg/dL (9-20); Calcium 7.9 mg/dL (8.4-10.2); Carbon Dioxide 30 mmol/L (22-30); Chloride 95 mmol/L (98-107); Estimated CRCL calculation 20 ml/min; Estimated Glomerular Filt Rate 21; Glucose 115 mg/dL (65-110); Magnesium 1.8 mg/dL (1.6-2.3); Phosphorus 3.5 mg/dL (2.5-4.5); Potassium 3.6 mmol/L (3.4-5.0); Sodium 135 mmol/L (137-145)
[2022-06-15 05:40] LABS: Alveolar/Arterial O2 Gradient 72.3 mmHg; Base Excess ABG 5.4 mEq/l (+/-2.0); Fractional Inspired Oxygen 30 %; HCO3 ABG 26.5 mEq/l (22.0-26.0); Methemoglobin ABG 0.4 %THb (0-1.5); Oxygen Content ABG 18.5 %vol (16.0-22.0); Oxygen Saturation ABG 98.6 % (95.0-100.0); Oxyhemoglobin 97.6 % THb (90.0-100.0); PCO2 ABG 28.7 mmHg (35.0-45.0); PO2 ABG 107.9 mmHg (80.0-100.0); Total Hemoglobin 13.4 g/dL (12.0-18.0)
[2022-06-15 05:41] LABS: Device VENTILATOR; Modified Allen's Test Pass; Site Drawn RIGHT RADIAL; pH ABG 7.584 (7.350-7.450)
[2022-06-15 05:42] LABS: Arterial Blood Gas PEEP 5 cmH2O; Arterial Blood Gas Tidal Volume 450 ml; Arterial Blood Gas Vent Mode CMV; Arterial Blood Gas Ventilator rate 20 /MIN
[2022-06-15] MEDS: OPTI-GEN TAB 1 TABLET PO ×2 (08:29→20:18)
[2022-06-15] MEDS: LEVOTHYROXINE SODIUM 50 MCG TABLET PO (08:29)
[2022-06-15] MEDS: ATORVASTATIN 40 MG TABLET 80 MG PO (08:29)
[2022-06-15] MEDS: MINERAL OIL/WHITE PETROLATUM OINTMENT 1 APPLIC EACH EYE ×2 (08:32→20:17)
[2022-06-15] MEDS: PANTOPRAZOLE SODIUM IV 40 MG VIAL IV PUSH ×2 (08:33→20:18)
--- NOTE | 2022-06-15 09:09 | WPDINTPN ---
Progress Note: A&P Assessment and Plan (1) Cardiac arrest: Code(s): I46.9 - Cardiac arrest, cause unspecified Status: Acute Assessment and Plan: Exact etiology not clear but patient has significant coronary artery disease and cardiomyopathy, he received propofol for sedation which itself can cause bradycardia, hypoventilation from sedation during the procedure is another possibility which could have led to respiratory acidosis, respiratory failure, bradycardia and PEA arrest -Worsening anemia could be another contributing factor as his hemoglobin is 6.9 -Aspiration is also possibility although patient was NPO prior to the procedure because of his GI bleed and for EGD Post resuscitation EKG does not show any ST elevation and shows sinus rhythm with interventricular conduction delay and ST abnormality in lateral leads which are consistent with his old EKGs -troponins have plateaued -patient on Levaquin (06/11) and Flagyl (06/12) (for possible SBP was started by GI) -06/14/2022: Had to be restarted on Levophed overnight but is currently off -patient status post target temperature management, currently has been very warm to normal body temperature since 9:00 p.m. on 06/13/2022 -patient started to follow commands this morning -appreciate cardiology following the patient -06/12/2022: Cardiac echocardiogram: LV systolic function is severely reduced with EF of 25-30%, grade 3 diastolic dysfunction, RV systolic function is moderately reduced, mild mitral valve regurg, mild tricuspid valve regurg, moderate pulmonary hypertension with RVSP of 49 mmHg. (2) Acute respiratory failure: Code(s): J96.00 - Acute respiratory failure, unspecified whether with hypoxia or hypercapnia Status: Acute Assessment and Plan: Respiratory failure likely related to cardiac arrest Chest x-ray 06/15: Mild pulmonary edema, stable moderate size left pleural effusion, stable airspace opacities in left mid and lower lung zones consistent with atelectasis versus pneumonia, cardiomegaly. Patient currently on CMV mode of ventilation, peep of 5 and 30% FiO2, will place patient on SBT ABGs reviewed, respiratory rate is been decrease -not on any sedation -patient had hemodialysis removal of 4000 mL of fluid Continue Levaquin, Flagyl for anaerobic coverage for possible aspiration (3) End-stage renal disease on hemodialysis: Code(s): N18.6 - End stage renal disease; Z99.2 - Dependence on renal dialysis Status: Acute Assessment and Plan: Patient has a history of end-stage renal disease and started on hemodialysis in April 2022 -appreciate nephrology following the patient, -06/14 patient was dialyzed with 4000 mL in fluid removal (4) GI bleed: Code(s): K92.2 - Gastrointestinal hemorrhage, unspecified Status: Acute Assessment and Plan: 06/12 EGD showed small ulcer which was not bleeding and gastritis, hiatal hernia PPI IV q.12 hours 06/12 Hemoglobin was 6.9, transfuse1 unit of PRBC -repeat hemoglobin this morning is stable at 8.6 Monitor hemoglobin and transfuse additional units as needed (5) DVT (deep venous thrombosis): Code(s): I82.409 - Acute embolism and thrombosis of unspecified deep veins of unspecified lower extremity Status: Acute Assessment and Plan: 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
--- NOTE | 2022-06-15 10:40 | PCRCNOTE ---
pt placed on SBT 08/16 at 10:20, pt immediately went apneic and a back up mode kicked into place. pt now is retuned to CMV mode.
--- NOTE | 2022-06-15 11:31 | PCFNICU ---
ICU Rounding Note: Pt current nutrition is Nepro at 20 ml/hr. Last recorded weight is 85 kg, up from 80.2 kg on admit. Bowel Motility:+BM reported 06/14 Labs Reviewed:Glu 115, Na 135, GFR 21, BUN 25, Cr 3.0,Hct 28.3,Hgb 8.6, Glu 115, Alb 2.8 Meds Noted:Levophed, Flagyl, Protonix, Lipitor, Levaquin, Synthroid. Skin: WNL Additional Notes: Patient remains on mechanical vent. Tube feedings currently on hold for breathing trial. If patient remains on tube feedings recommend goal rate at 40 ml/hr, providing 1584 kcals/72 gms protein. Free water flush 30 ml q 4 hours. Following daily in ICU rounds. Will monitor every Sunday and Sunday.
--- NOTE | 2022-06-15 11:43 | PM.PNCARD ---
Progress Note: A&P Assessment and Plan (1) GI bleed: Code(s): K92.2 - Gastrointestinal hemorrhage, unspecified <GENEVA Lino - Last Filed: 06/15/22 15:25> Status: Acute <GENEVA Lino - Last Filed: 06/15/22 15:25> Assessment and Plan: Patient presents with 1 episode of melena while taking Eliquis 5 mg b.i.d. for below the knee DVT, as well as aspirin plus Plavix for his saphenous vein graft patency. H&H improved Endoscopy showed erosive/ulcerative gastritis but no active bleeding. Recommendation that ASA, plavix could be restarted in 4-5 days Apixaban has been discontinued at this point, repeat LE venous Dopplers did not show any DVT in R lower limb <GENEVA Lino - Last Filed: 06/15/22 15:25> (2) CAD (coronary artery disease): Code(s): I25.10 - Atherosclerotic heart disease of [place] coronary artery without angina pectoris <GENEVA Lino - Last Filed: 06/15/22 15:25> Status: Acute <GENEVA Lino - Last Filed: 06/15/22 15:25> Assessment and Plan: History of CABG and redo CABG. All of coronary circulation goes through a saphenous vein graft to the Left anterior descending, so it is very important to continue some type of anticoagulation or anti-platelet agent. Continue carvedilol, atorvastatin Stable so far. <GENEVA Lino - Last Filed: 06/15/22 15:25> (3) DVT (deep venous thrombosis): Code(s): I82.409 - Acute embolism and thrombosis of unspecified deep veins of unspecified lower extremity <GENEVA Lino - Last Filed: 06/15/22 15:25> Status: Acute <GENEVA Lino - Last Filed: 06/15/22 15:25> Assessment and Plan: Right peroneal DVT diagnosed 05/20/2022. As above, no DVT on repeat Doppler. Apixaban discontinued. <GENEVA Lino - Last Filed: 06/15/22 15:25> (4) Chronic combined systolic and diastolic heart failure: Code(s): I50.42 - Chronic combined systolic (congestive) and diastolic (congestive) heart failure <GENEVA Lino - Last Filed: 06/15/22 15:25> Status: Chronic <GENEVA Lino - Last Filed: 06/15/22 15:25> Assessment and Plan: Chronic CHF, improved since starting dialysis. HF meds on hold currently due to hypotension. Off norepi at this point. <GENEVA Lino - Last Filed: 06/15/22 15:25> (5) End stage renal disease on dialysis: Code(s): N18.6 - End stage renal disease; Z99.2 - Dependence on renal dialysis <GENEVA Lino - Last Filed: 06/15/22 15:25> Status: Acute <GENEVA Lino - Last Filed: 06/15/22 15:25> Assessment and Plan: End-stage renal disease, started dialysis in April. <GENEVA Lino - Last Filed: 06/15/22 15:25> (6) Cardiac arrest: Code(s): I46.9 - Cardiac arrest, cause unspecified <GENEVA Lino - Last Filed: 06/15/22 15:25> Status: Acute <GENEVA Lino - Last Filed: 06/15/22 15:25> Assessment and Plan: Bradycardia and PEA arrest Etiology unclear. Possibly related to sedation with propofol, hypotension. He does have an ICD in place though, so significant bradycardia should not be possible with back up pacing. Will have ICD interrogated. TTS protocol complete. Remains intubated but not sedated, does make spontaneous movements. Head CT did not show any acute intracranial process. Apparently took a prolonged period of time to wake up after previous administration of propofol. Continue supportive care. <GENEVA Lino - Last Filed: 06/15/22 15:25> Additional Plan Attending Addendum: I agree with the above documentation and plan of care as outlined. <Blas Hinton MD - Last Filed: 06/15/22 16:27> Subjective Date/time seen: 06/15/22 11:43 Cardiology follow up for CAD, car
[2022-06-15 11:53] LABS: Glucose Point of Care 106 mg/dl (65-105)
[2022-06-15] MEDS: levoFLOXacin 250 MG/D5W 50 ML 250 MG/50 ML BAG 50 MG IVPB (13:01)
--- NOTE | 2022-06-15 15:26 | PM.PNNEP ---
Progress Note: A&P Additional Plan 1. Jaime is a very pleasant gentleman with end-stage renal disease. He gets dialysis 3 times a week. He is due tomorrow. We will remove more fluid as tolerated tomorrow 2. The patient has black stools. Hb 6.9 at one point. then transfused and now 8.6. not much of a drop from yesterday. He is on pantoprazole. reticulocyte count is okay. Will continue Epogen. 3. the patient has renal osteodystrophy. Phosphorus level is normal. 4. the patient has hypertension. Blood pressure meds are on hold. Blood pressure still a little bit soft. 5. He has congestive cardiomyopathy. 6. He has hyperlipidemia and is on atorvastatin. 7. He has diabetes. He is on insulin sliding scale and Accu-Cheks per supervisor shaving and splitting/hospitalist. Subjective Date/time seen: 06/15/22 15:27 Interval history: Jaime is still intubated. not sedated. He is responding some. He squeezed my hand upon command. Exam Narrative: WDWN in NAD skin no rash head ncat lungs Coarse breath sounds bilaterally cor reg no rub abd BS+ nontender and soft ext 1-2+ edema. neuro: Seems to be waking up a bit. Objective Data Vital Signs Vital Signs: Vital Signs - 24 hr 06/14/22 15:59 06/14/22 16:00 06/14/22 16:00 Temperature Pulse Rate 113 H Respiratory Rate Blood Pressure 145/80 H Pulse Oximetry 99 Oxygen Delivery Mechanical Ventilation Fraction of Inspired Oxygen 35 35 06/14/22 15:58 06/14/22 15:45 06/14/22 17:00 Temperature 37.3 C Pulse Rate 117 H 89 91 Respiratory Rate 20 Blood Pressure 145/80 H 107/56 L 125/87 Pulse Oximetry 99 Oxygen Delivery Fraction of Inspired Oxygen 06/14/22 16:00 06/14/22 16:15 06/14/22 16:30 Temperature Pulse Rate 106 H 88 91 Respiratory Rate Blood Pressure 137/64 118/56 L 122/58 L Pulse Oximetry Oxygen Delivery Fraction of Inspired Oxygen 06/14/22 16:45 06/14/22 15:58 06/14/22 17:15 Temperature Pulse Rate 94 94 Respiratory Rate Blood Pressure 120/66 124/89 Pulse Oximetry Oxygen Delivery Fraction of Inspired Oxygen 35 06/14/22 17:30 06/14/22 17:45 06/14/22 18:00 Temperature Pulse Rate 92 90 92 Respiratory Rate Blood Pressure 124/61 117/56 L 114/60 Pulse Oximetry Oxygen Delivery Fraction of Inspired Oxygen 06/14/22 18:15 06/14/22 18:30 06/14/22 18:45 Temperature Pulse Rate 92 93 92 Respiratory Rate Blood Pressure 124/60 121/59 L 115/48 L Pulse Oximetry Oxygen Delivery Fraction of Inspired Oxygen 06/14/22 18:00 06/14/22 19:15 06/14/22 19:30 Temperature Pulse Rate 92 93 90 Respiratory Rate Blood Pressure 111/84 109/55 L 106/55 L Pulse Oximetry Oxygen Delivery Fraction of Inspired Oxygen 06/14/22 17:22 06/14/22 16:00 06/14/22 18:00 Temperature Pulse Rate 92 94 91 Respiratory Rate Blood Pressure Pulse Oximetry 99 Oxygen Delivery Mechanical Ventilation Fraction of Inspired Oxygen 35 06/14/22 16:00 06/14/22 18:00 06/14/22 19:52 Temperature 37.3 C 37.0 C Pulse Rate 114 H 91 98 Respiratory Rate 21 H 16 Blood Pressure 137/64 114/60 112/61 Pulse Oximetry 98 99 Oxygen Delivery Fraction of Inspired Oxygen 06/14/22 20:15 06/14/22 19:32 06/14/22 19:40 Temperature 36.9 C Pulse Rate 89 93 99 Respiratory Rate 21 H Blood Pressure 109/49 L 103/54 L 111/58 L Pulse Oximetry 99 Oxygen Delivery Fraction of Inspired Oxygen 06/14/22 21:12 06/14/22 20:00 06/14/22 20:00 Temperature Pulse Rate 80 80 Respiratory Rate 21 H Blood Pressure 105/71 Pulse Oximetry 97 Oxygen Delivery Mechanical Ventilation Fraction of Inspired Oxygen 30 30 06/14/22 20:00 06/14/22 20:00 06/14/22 22:00 Temperature 37.1 C Pulse Rate 93 97 84 Respiratory Rate 20 Blood Pressure 108/50 L Pulse Oximetry 100 Oxygen Delivery Fraction of Inspired Oxygen 08/0
--- NOTE | 2022-06-15 15:52 | WPDGIPROGNO ---
Progress Note: A&P Assessment and Plan (1) GI bleed: Code(s): K92.2 - Gastrointestinal hemorrhage, unspecified Status: Acute Assessment and Plan: resolved, no signs of active bleeding but found small gastric ulcers on ppi (2) Cardiac arrest: Code(s): I46.9 - Cardiac arrest, cause unspecified Status: Acute Assessment and Plan: unfortunately PEA with cardiac arrest, received CPR and iv medication CT head negative bone char operator on board (3) Erosive gastritis: Code(s): K29.60 - Other gastritis without bleeding Status: Acute Assessment and Plan: on ppi (4) Acute respiratory failure: Code(s): J96.00 - Acute respiratory failure, unspecified whether with hypoxia or hypercapnia Status: Acute Assessment and Plan: he was intubated after PEA (5) CAD (coronary artery disease): Code(s): I25.10 - Atherosclerotic heart disease of [place] coronary artery without angina pectoris Status: Acute Assessment and Plan: end stage heart disease cardiology on board (6) Encephalopathy: Code(s): G93.40 - Encephalopathy, unspecified Status: Acute Assessment and Plan: he now is following simple commands (7) End-stage renal disease on hemodialysis: Code(s): N18.6 - End stage renal disease; Z99.2 - Dependence on renal dialysis Status: Acute Assessment and Plan: on dialysis per nephrology (8) Cirrhosis: Code(s): K74.60 - Unspecified cirrhosis of liver Status: Acute Subjective Date/time seen: 06/15/22 15:52 Interval history: today withdrawing to pain and following simple commands, still intubated Review of Systems Review of Systems: ROS unobtainable: Yes unobtainable due to endotracheal tube and unobtainable due to mental status Exam Narrative: General: intubated and on mechanical ventilation in no acute distress HEENT: Pupils equal and reactive, ETT in place, sclera is clear Lungs/Chest: Trachea central Coarse BS B/L, bilateral rales, decreased breath sounds at bases Cardiac: Regular sinus rate and rhythm Abdomen: Soft, nontender, nondistended, decreased bowel sounds. Old surgical scars noted in the midline and right inguinal area Extremities: Bilateral lower extremity skin wrinkling, continues to have 1+ pitting edema present on both lower extremities : Golden in place Neurologic: Patient is intubated, not on any sedation. Opens eyes to name, is able to squeeze my fingers and showed an thumbs-up with his right hand. He also wiggle his toes on the right foot on multiple occasions. Psych: Unable to assess at this time Objective Data Vital Signs Vital Signs: Vital Signs - 24 hr 06/14/22 15:59 06/14/22 16:00 06/14/22 16:00 Temperature Pulse Rate 113 H Respiratory Rate Blood Pressure 145/80 H Pulse Oximetry 99 Oxygen Delivery Mechanical Ventilation Fraction of Inspired Oxygen 35 35 06/14/22 15:58 06/14/22 17:00 06/14/22 16:00 Temperature Pulse Rate 117 H 91 106 H Respiratory Rate Blood Pressure 145/80 H 125/87 137/64 Pulse Oximetry Oxygen Delivery Fraction of Inspired Oxygen 06/14/22 16:15 06/14/22 16:30 06/14/22 16:45 Temperature Pulse Rate 88 91 94 Respiratory Rate Blood Pressure 118/56 L 122/58 L 120/66 Pulse Oximetry Oxygen Delivery Fraction of Inspired Oxygen 06/14/22 15:58 06/14/22 17:15 06/14/22 17:30 Temperature Pulse Rate 94 92 Respiratory Rate Blood Pressure 124/89 124/61 Pulse Oximetry Oxygen Delivery Fraction of Inspired Oxygen 35 06/14/22 17:45 06/14/22 18:00 06/14/22 18:15 Temperature Pulse Rate 90 92 92 Respiratory Rate Blood Pressure 117/56 L 114/60 124/60 Pulse Oximetry Oxygen Delivery Fraction of Inspired Oxygen 06/14/22 18:30 06/14/22 18:45 06/14/22 18:00 Temperature Pulse Rate 93 92 92 Respiratory Rate Blood Pressure 121/59 L 115/48 L
[2022-06-15 17:24] LABS: Glucose Point of Care 97 mg/dl (65-105)
--- NOTE | 2022-06-15 18:09 | PM.IMPN ---
Progress Note: A&P Assessment and Plan (1) Cardiac arrest: Code(s): I46.9 - Cardiac arrest, cause unspecified Status: Acute Assessment and Plan: Unsure of etiology, appreciate Cardiology and Critical Care consultations (2) Acute respiratory failure: Code(s): J96.00 - Acute respiratory failure, unspecified whether with hypoxia or hypercapnia Status: Acute Assessment and Plan: Aspiration pneumonia is possible, continue antibiotics, continue intubation per Critical Care, wean when able (3) End-stage renal disease on hemodialysis: Code(s): N18.6 - End stage renal disease; Z99.2 - Dependence on renal dialysis Status: Acute Assessment and Plan: Appreciate nephrology consultation for dialysis management (4) GI bleed: Code(s): K92.2 - Gastrointestinal hemorrhage, unspecified Status: Acute Assessment and Plan: Gastritis, small ulcer noted on EGD, monitor hemoglobin, transfuse as needed (5) DVT (deep venous thrombosis): Code(s): I82.409 - Acute embolism and thrombosis of unspecified deep veins of unspecified lower extremity Status: Acute Assessment and Plan: Currently holding Eliquis due to GI bleed (6) Diabetes: Code(s): E11.9 - Type 2 diabetes mellitus without complications Status: Chronic Assessment and Plan: Continue sliding scale insulin Accu-Cheks Hold Lantus (7) Acute on chronic combined systolic and diastolic CHF (congestive heart failure): Code(s): I50.43 - Acute on chronic combined systolic (congestive) and diastolic (congestive) heart failure Status: Acute Assessment and Plan: Appreciate cardiology consultation, fluid management essentially being managed by Nephrology (8) Hypotension: Code(s): I95.9 - Hypotension, unspecified Status: Acute Assessment and Plan: Currently off Levophed, monitor (9) Encephalopathy: Code(s): G93.40 - Encephalopathy, unspecified Status: Acute Assessment and Plan: Patient is currently unresponsive. He did receive propofol for the procedure. His Code was pretty brief as he only received 1 round of CPR and 1 dose of epinephrine hence it is unlikely the patient has developed anoxic injury. 06/13 according the night nurse, the nephew stated that the patient had received propofol for his last procedure and did not wake up for 7 days, this information that was given by the nephew (10) Ileus: Code(s): K56.7 - Ileus, unspecified Status: Acute Assessment and Plan: Patient vomited tube feeds, obstructive series showed possible ileus, OG tube to suction overnight, Reglan x3 Additional Plan DVT prophylaxis -SCDs, no chemoprophylaxis due to GI bleed, anemia Stress ulcer prophylaxis -PPI Nutrition -patient did not tolerate tube feeds, will start trickle tube feeds again today Code Status - Full Code Subjective Date/time seen: 06/15/22 18:09 Interval history: slowly responding, following some commands. no overnight events Review of Systems Review of Systems: ROS unobtainable: Yes unobtainable due to endotracheal tube Exam Narrative: General: intubated, on no sedation, following some commands HEENT: Atraumatic, normocephalic, mucous membranes moist, PERRLA CV: Regular rate and rhythm, S1, S2 Lungs: poor air entry with diminished breath sounds throughout Abdomen: Soft, nontender, nondistended Extremities: pitting edema bilaterally Skin: No rashes noted, no lesions or wounds seen Objective Data Vital Signs Vital Signs: Vital Signs - 24 hr 06/14/22 18:15 06/14/22 18:30 06/14/22 18:45 Temperature Pulse Rate 92 93 92 Respiratory Rate Blood Pressure 124/60 121/59 L 115/48 L Pulse Oximetry Oxygen Delivery Fraction of Inspired Oxygen 06/14/22 19:15 06/14/22 19:30 06/14/22 19:52 Temperature Pulse Rate 93 90 98 Respiratory Rate Blood Pressure 109/55 L
[2022-06-15] MEDS: CHOLECALCIFEROL 1,000 UNITS TABLET 5000 UNITS PO (20:17)
[2022-06-15 22:32] LABS: Glucose Point of Care 95 mg/dl (65-105)
[2022-06-16] VITALS (40 sets, daily range): BP systolic 87–139; BP diastolic 48–83; PULSE 71–108; RESP 12–21; TEMP 35–37.7; O2SAT 97–100
[2022-06-16] MEDS: metroNIDAZOLE 500 MG/ISO 100ML 500 MG/100 ML BAG 100 MG IVPB ×3 (00:21→17:19)
[2022-06-16 05:24] LABS: Hematocrit 28.3 % (42.0-52.0); Hemoglobin 8.7 g/dL (14.0-18.0); Mean Corpuscular HGB Conc 30.7 g/dl (32-36); Mean Corpuscular Hemoglobin 30.3 pg (26-34); Mean Corpuscular Volume 98.6 fl (80-100); Mean Platelet Volume 10.5 fl (7.4-10.4); Platelet Count Result 166 k/mm3 (150-375); Red Blood Count 2.87 M/mm3 (4.6-6.20); Red Cell Distribution Width 18.1 % (11.5-14.5); White Blood Count 12.8 K/mm3 (4.5-10.0)
[2022-06-16 05:28] LABS: Alveolar/Arterial O2 Gradient 76.1 mmHg; Base Excess ABG 4.5 mEq/l (+/-2.0); Carboxyhemoglobin 0.3 % THb (0-2.0); Fractional Inspired Oxygen 30 %; Methemoglobin ABG 0.3 %THb (0-1.5); Oxygen Content ABG 13.7 %vol (16.0-22.0); Oxygen Saturation ABG 98.5 % (95.0-100.0); Oxyhemoglobin 96.9 % THb (90.0-100.0); PO2 ABG 104.9 mmHg (80.0-100.0); Reduced Hemoglobin 2.5 %THb (0-5.0); Total Hemoglobin 9.9 g/dL (12.0-18.0)
[2022-06-16 05:32] LABS: Arterial Blood Gas PEEP 5 cmH2O; Arterial Blood Gas Tidal Volume 450 ml; Arterial Blood Gas Vent Mode CMV; Arterial Blood Gas Ventilator rate 16 /MIN; Device VENTILATOR; Modified Allen's Test Pass; Site Drawn RIGHT RADIAL; pH ABG 7.585 (7.350-7.450)
[2022-06-16 05:34] LABS: Alanine Aminotransferase 13 U/L (6-50); Albumin Level 2.9 g/dL (3.5-5.1); Alkaline Phosphatase 114 U/L (38-126); Anion Gap 10 mmol/L (8-16); Aspartate Amino Transferase 23 U/L (17-59); Bilirubin,Total 0.5 mg/dL (0.2-1.3); Blood Urea Nitrogen 33 mg/dL (9-20); Calcium 8.1 mg/dL (8.4-10.2); Carbon Dioxide 30 mmol/L (22-30); Chloride 94 mmol/L (98-107); Estimated CRCL calculation 16 ml/min; Estimated Glomerular Filt Rate 15; Glucose 114 mg/dL (65-110); Magnesium 1.8 mg/dL (1.6-2.3); Phosphorus 3.8 mg/dL (2.5-4.5); Potassium 3.5 mmol/L (3.4-5.0); Sodium 134 mmol/L (137-145)
[2022-06-16] MEDS: CENTRAL LINE FLUSH 10 ML IV PUSH ×4 (05:41→21:03)
[2022-06-16] MEDS: PANTOPRAZOLE SODIUM IV 40 MG VIAL IV PUSH ×2 (08:13→21:03)
[2022-06-16] MEDS: LEVOTHYROXINE SODIUM 50 MCG TABLET PO (08:13)
[2022-06-16] MEDS: MINERAL OIL/WHITE PETROLATUM OINTMENT 1 APPLIC EACH EYE ×2 (08:13→21:02)
[2022-06-16] MEDS: OPTI-GEN TAB 1 TABLET PO ×2 (08:13→21:03)
[2022-06-16] MEDS: ATORVASTATIN 40 MG TABLET 80 MG PO (08:13)
--- NOTE | 2022-06-16 08:32 | WPDINTPN ---
Progress Note: A&P Assessment and Plan (1) Cardiac arrest: Code(s): I46.9 - Cardiac arrest, cause unspecified Status: Acute Assessment and Plan: Exact etiology not clear but patient has significant coronary artery disease and cardiomyopathy, he received propofol for sedation which itself can cause bradycardia, hypoventilation from sedation during the procedure is another possibility which could have led to respiratory acidosis, respiratory failure, bradycardia and PEA arrest -Worsening anemia could be another contributing factor as his hemoglobin is 6.9 -Aspiration is also possibility although patient was NPO prior to the procedure because of his GI bleed and for EGD Post resuscitation EKG does not show any ST elevation and shows sinus rhythm with interventricular conduction delay and ST abnormality in lateral leads which are consistent with his old EKGs -troponins have plateaued -patient on Levaquin (06/11) and Flagyl (06/12) (for possible SBP was started by GI) -06/14/2022: Had to be restarted on Levophed overnight but is currently off -patient status post target temperature management, currently has been very warm to normal body temperature since 9:00 p.m. on 06/13/2022 -patient following commands in all extremities -appreciate cardiology following the patient -06/12/2022: Cardiac echocardiogram: LV systolic function is severely reduced with EF of 25-30%, grade 3 diastolic dysfunction, RV systolic function is moderately reduced, mild mitral valve regurg, mild tricuspid valve regurg, moderate pulmonary hypertension with RVSP of 49 mmHg. (2) Acute respiratory failure: Code(s): J96.00 - Acute respiratory failure, unspecified whether with hypoxia or hypercapnia Status: Acute Assessment and Plan: Respiratory failure likely related to cardiac arrest Chest x-ray 06/16: Mild pulmonary edema, stable left pleural effusion, stable airspace opacities at left lung base consistent with atelectasis versus pneumonia, cardiomegaly. Patient currently on CMV mode of ventilation, peep of 5 and 30% FiO2, -patient tolerated ASV mode of ventilation on 06/15 -tried to place patient on SBT multiple times this morning, he would not initiated breath and ventilated kicked into SIMV mode, placed patient back on CMV mode. Will try ASV and SBT later -ABGs reviewed, will decrease tidal volume to 400 -NOT on any sedation -06/14 hemodialysis with removal of 4000 mL of fluid Continue Levaquin, Flagyl for anaerobic coverage for possible aspiration -will discuss with Nephrology regarding hemodialysis with fluid removal again today (3) End-stage renal disease on hemodialysis: Code(s): N18.6 - End stage renal disease; Z99.2 - Dependence on renal dialysis Status: Acute Assessment and Plan: Patient has a history of end-stage renal disease and started on hemodialysis in April 2022 -appreciate nephrology following the patient, -06/14 patient was dialyzed with 4000 mL in fluid removal -dialysis per Nephrology (4) GI bleed: Code(s): K92.2 - Gastrointestinal hemorrhage, unspecified Status: Acute Assessment and Plan: 06/12 EGD showed small ulcer which was not bleeding and gastritis, hiatal hernia PPI IV q.12 hours 06/12 Hemoglobin was 6.9, transfuse1 unit of PRBC -repeat hemoglobin this morning is stable at 8.7 Monitor hemoglobin and transfuse additional units as needed (5) DVT (deep venous thrombosis): Code(s): I82.409 - Acute embolism and thrombosis of unspecified deep veins of unspecified lower extremity Status: Acute Assessment and Plan: 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 Anticoagulation held due to GI bleed 06/12 venous Doppler of right lower extremity does not show any DVT at this time (6) Diabetes: Code(s): E11.9 - Type 2 diabetes mellitus without complications Status: Chronic Assessment and Plan: Continue sliding scale insulin Accu-Cheks Hold Lantu
--- NOTE | 2022-06-16 11:00 | PM.PNNEP ---
Progress Note: A&P Additional Plan 1. Jaime is a very pleasant gentleman with end-stage renal disease. He gets dialysis 3 times a week. He is due today. We will remove more fluid this time. Discussed with Dr. Stein 2. The patient has black stools. EGD showed ulcerative gastritis. This explains the bleeding. Hb 6.9 at one point. Hemoglobin stable at 8.7. He is on pantoprazole. reticulocyte count is okay. Will continue Epogen. 3. the patient has renal osteodystrophy. Phosphorus level is normal. 4. the patient has hypertension. Blood pressure meds are on hold. Blood pressure still a little bit soft. 5. He has congestive cardiomyopathy. 6. He has hyperlipidemia and is on atorvastatin. 7. He has diabetes. He is on insulin sliding scale and Accu-Cheks per margin analyst/hospitalist. Subjective Date/time seen: 06/16/22 11:00 Interval history: Jaime is still intubated. He looks about the same. He is responding some. Due for dialysis today. Exam Narrative: WDWN in NAD skin no rash head ncat lungs Coarse breath sounds bilaterally cor reg no rub or gallop abd BS+ nontender and soft ext 1+ edema. neuro: Seems to be waking up a bit. Objective Data Vital Signs Vital Signs: Vital Signs - 24 hr 06/15/22 11:58 06/15/22 11:58 06/15/22 12:00 Temperature 37.2 C Pulse Rate 75 Respiratory Rate 16 Blood Pressure 103/65 Pulse Oximetry 98 99 Oxygen Delivery Mechanical Ventilation Fraction of Inspired Oxygen 30 30 06/15/22 12:00 06/15/22 11:08 06/15/22 13:11 Temperature Pulse Rate 78 78 76 Respiratory Rate Blood Pressure Pulse Oximetry 96 99 Oxygen Delivery Mechanical Ventilation Mechanical Ventilation Fraction of Inspired Oxygen 30 30 06/15/22 13:00 06/15/22 14:00 06/15/22 14:00 Temperature 37.0 C Pulse Rate 80 80 Respiratory Rate 14 Blood Pressure 115/51 L Pulse Oximetry 97 Oxygen Delivery Fraction of Inspired Oxygen 30 06/15/22 16:00 06/15/22 16:00 06/15/22 16:00 Temperature 37.0 C Pulse Rate 77 Respiratory Rate 10 L Blood Pressure 105/52 L Pulse Oximetry 96 97 Oxygen Delivery Mechanical Ventilation Fraction of Inspired Oxygen 30 30 06/15/22 16:00 06/15/22 16:46 06/15/22 18:00 Temperature Pulse Rate 84 83 82 Respiratory Rate Blood Pressure Pulse Oximetry 98 Oxygen Delivery Mechanical Ventilation Fraction of Inspired Oxygen 30 06/15/22 18:00 06/15/22 20:00 06/15/22 20:00 Temperature 37.1 C 37.1 C Pulse Rate 82 84 Respiratory Rate 10 L 19 Blood Pressure 114/68 103/92 H Pulse Oximetry 98 97 Oxygen Delivery Fraction of Inspired Oxygen 30 06/15/22 20:00 06/15/22 20:00 06/15/22 22:00 Temperature Pulse Rate 85 88 Respiratory Rate Blood Pressure Pulse Oximetry 97 Oxygen Delivery Mechanical Ventilation Fraction of Inspired Oxygen 30 06/15/22 22:00 06/16/22 00:00 06/16/22 00:00 Temperature 37.3 C 37.4 C Pulse Rate 88 87 Respiratory Rate 18 16 Blood Pressure 114/74 117/64 Pulse Oximetry 97 98 Oxygen Delivery Fraction of Inspired Oxygen 30 06/16/22 00:00 06/16/22 00:00 06/15/22 20:30 Temperature Pulse Rate 90 84 Respiratory Rate Blood Pressure Pulse Oximetry 98 98 Oxygen Delivery Mechanical Ventilation Mechanical Ventilation Fraction of Inspired Oxygen 30 30 06/15/22 23:05 06/16/22 02:00 06/16/22 02:00 Temperature 37.5 C Pulse Rate 88 85 85 Respiratory Rate 18 Blood Pressure 108/66 Pulse Oximetry 96 98 Oxygen Delivery Mechanical Ventilation Fraction of Inspired Oxygen 30 06/16/22 04:00 06/16/22 04:00 06/16/22 04:00 Temperature Pulse Rate 84 Respiratory Rate Blood Pressure Pulse Oximetry 98 Oxygen Delivery Mechanical Ventilation Fraction of Inspired Oxygen 30 30 06/16/22 04:00 06/16/22 02:43 06/16/22 05:29 Temperature 37.7 C H Pulse R
[2022-06-16 11:42] LABS: Glucose Point of Care 114 mg/dl (65-105)
--- NOTE | 2022-06-16 11:43 | PCNFU ---
Nutrition Follow-Up Complete: Inadequate oral intake as related to mechanical ventilation as evidenced by tube feeding orders. Goal: Meet estimated nutritional needs Patient is progressing towards goal. We will continue current goal. Pt current nutrition is Nepro at 20 ml/hr Nutrition recommendation: Nepro goal rate at 40 ml/hr Last recorded weight is 83.7 kg, up from 80.2 kg on admit. Bowel Motility:+BM reported 06/16 Labs Reviewed:Glu 114, GFR 15, Na 134, Alb 2.9,Hgb 8.7,Hct 28.3 Meds Noted:Levophed, Flagyl, Protonix, Lipitor, Levaquin, Synthroid. Skin: WNL Additional Notes: Patient failed breathing trial. He remains on mechanical vent and tube feedings of Nepro at 20 ml/hr and tolerating. Plans for tube feeding rate to increased today. Goal rate at 40 ml/hr, providing 1584 kcals/72 gms protein. Meeting 100% kcal needs and 92% protein needs. Free water flush 30 ml q 4hours. Patient is scheduled for dialysis today. Agree with diet orders. Will follow in ICU rounds and reassessing every Sunday and Sunday.
[2022-06-16] MEDS: levoFLOXacin 250 MG/D5W 50 ML 250 MG/50 ML BAG 50 MG IVPB (12:10)
[2022-06-16] MEDS: EPOETIN ALFA-EPBX 10,000 UNITS/ML VIAL 10000 UNITS IV PUSH (13:21)
[2022-06-16] MEDS: NOREPINEPHRINE 8 MG/D5W 250 ML 8 MG/250 ML BAG 9.38 MG IV CONT (13:55)
[2022-06-16 16:56] LABS: Glucose Point of Care 85 mg/dl (65-105)
--- NOTE | 2022-06-16 17:36 | PM.IMPN ---
Progress Note: A&P Assessment and Plan (1) Cardiac arrest: Code(s): I46.9 - Cardiac arrest, cause unspecified Status: Acute Assessment and Plan: Unsure of etiology, appreciate Cardiology and Critical Care consultations (2) Acute respiratory failure: Code(s): J96.00 - Acute respiratory failure, unspecified whether with hypoxia or hypercapnia Status: Acute Assessment and Plan: Aspiration pneumonia is possible, continue antibiotics, continue intubation per Critical Care, wean when able (3) End-stage renal disease on hemodialysis: Code(s): N18.6 - End stage renal disease; Z99.2 - Dependence on renal dialysis Status: Acute Assessment and Plan: Appreciate nephrology consultation for dialysis management (4) GI bleed: Code(s): K92.2 - Gastrointestinal hemorrhage, unspecified Status: Acute Assessment and Plan: Gastritis, small ulcer noted on EGD, monitor hemoglobin, transfuse as needed (5) DVT (deep venous thrombosis): Code(s): I82.409 - Acute embolism and thrombosis of unspecified deep veins of unspecified lower extremity Status: Acute Assessment and Plan: Currently holding Eliquis due to GI bleed (6) Diabetes: Code(s): E11.9 - Type 2 diabetes mellitus without complications Status: Chronic Assessment and Plan: Continue sliding scale insulin Accu-Cheks Hold Lantus (7) Acute on chronic combined systolic and diastolic CHF (congestive heart failure): Code(s): I50.43 - Acute on chronic combined systolic (congestive) and diastolic (congestive) heart failure Status: Acute Assessment and Plan: Appreciate cardiology consultation, fluid management essentially being managed by Nephrology (8) Hypotension: Code(s): I95.9 - Hypotension, unspecified Status: Acute Assessment and Plan: Currently off Levophed, monitor (9) Encephalopathy: Code(s): G93.40 - Encephalopathy, unspecified Status: Acute Assessment and Plan: Patient is currently unresponsive. He did receive propofol for the procedure. His Code was pretty brief as he only received 1 round of CPR and 1 dose of epinephrine hence it is unlikely the patient has developed anoxic injury. 06/13 according the night nurse, the nephew stated that the patient had received propofol for his last procedure and did not wake up for 7 days, this information that was given by the nephew (10) Ileus: Code(s): K56.7 - Ileus, unspecified Status: Acute Assessment and Plan: Patient vomited tube feeds, obstructive series showed possible ileus, OG tube to suction overnight, Reglan x3 Additional Plan DVT prophylaxis -SCDs, no chemoprophylaxis due to GI bleed, anemia Stress ulcer prophylaxis -PPI Nutrition-tube feeds at 20 mL/hr, tolerating okay, not at goal Code Status - Full Code Subjective Date/time seen: 06/16/22 17:36 Interval history: Intubated and off sedation, no overnight events noted. Still essentially unresponsive. Review of Systems Review of Systems: ROS unobtainable: Yes unobtainable due to endotracheal tube and unobtainable due to mental status Exam Narrative: General: intubated, on no sedation, following some commands HEENT: Atraumatic, normocephalic, mucous membranes moist, PERRLA CV: Regular rate and rhythm, S1, S2 Lungs: poor air entry with diminished breath sounds throughout Abdomen: Soft, nontender, nondistended Extremities: pitting edema bilaterally Skin: No rashes noted, no lesions or wounds seen Objective Data Vital Signs Vital Signs: Vital Signs - 24 hr 06/15/22 18:00 06/15/22 18:00 06/15/22 20:00 Temperature 98.7 F 98.7 F Pulse Rate 82 82 84 Respiratory Rate 10 L 19 Blood Pressure 114/68 103/92 H Pulse Oximetry 98 97 Oxygen Delivery Fraction of Inspired Oxygen 06/15/22 20:00 06/15/22 20:00 06/15/22 20:00 Temperature Pulse Rate 85 R
[2022-06-16] MEDS: CHOLECALCIFEROL 1,000 UNITS TABLET 5000 UNITS PO (21:02)
[2022-06-17] VITALS (26 sets, daily range): BP systolic 83–108; BP diastolic 46–71; PULSE 74–103; RESP 10–31; TEMP 36.7–37.6; O2SAT 94–100
[2022-06-17] MEDS: metroNIDAZOLE 500 MG/ISO 100ML 500 MG/100 ML BAG 100 MG IVPB ×3 (00:44→17:09)
[2022-06-17 00:55] LABS: Glucose Point of Care 107 mg/dl (65-105)
[2022-06-17 05:03] LABS: Alveolar/Arterial O2 Gradient 55.8 mmHg; Base Excess ABG 8.5 mEq/l (+/-2.0); Carboxyhemoglobin 0.3 % THb (0-2.0); Fractional Inspired Oxygen 30 %; HCO3 ABG 30.1 mEq/l (22.0-26.0); Methemoglobin ABG 0.7 %THb (0-1.5); Oxygen Content ABG 11.2 %vol (16.0-22.0); Oxyhemoglobin 96.8 % THb (90.0-100.0); PCO2 ABG 29.6 mmHg (35.0-45.0); PO2 ABG 123.3 mmHg (80.0-100.0); PO2 FiO2 Ratio Arterial Blood 4.11 %; Reduced Hemoglobin 2.2 %THb (0-5.0)
[2022-06-17 05:04] LABS: pH ABG 7.625 (7.350-7.450)
[2022-06-17 05:05] LABS: Arterial Blood Gas PEEP 5 cmH2O; Arterial Blood Gas Tidal Volume 400 ml; Arterial Blood Gas Vent Mode CMV; Arterial Blood Gas Ventilator rate 16 /MIN; Device VENTILATOR; Modified Allen's Test Pass; Site Drawn RIGHT RADIAL
[2022-06-17] MEDS: CENTRAL LINE FLUSH 10 ML IV PUSH ×4 (05:43→20:42)
[2022-06-17 06:34] LABS: Glucose Point of Care 123 mg/dl (65-105)
[2022-06-17 06:37] LABS: Basophils Absolute Auto 0.1 K/mm3 (0.0-0.1); Basophils Percent Auto 0.5 % (0.2-1.2); Eosinophils Absolute Auto 0.3 K/mm3 (0-0.3); Eosinophils Percent Auto 2.8 % (0-4.4); Hematocrit 29.1 % (42.0-52.0); Hemoglobin 8.6 g/dL (14.0-18.0); Immature Granulocyte Absolute 0.15 K/mm3 (0.00-0.031); Immature Granulocyte Percent A 1.4 % (0-0.5); Lymphocytes Absolute Auto 0.93 K/mm3 (0.9-3.2); Lymphocytes Percent Auto 8.6 % (18.3-44.2); Mean Corpuscular HGB Conc 29.6 g/dl (32-36); Mean Corpuscular Hemoglobin 29.8 pg (26-34); Mean Corpuscular Volume 100.7 fl (80-100); Monocytes Absolute Auto 0.9 K/mm3 (0.1-0.6); Monocytes Percent Auto 8.1 % (2.6-8.5); Neutrophils Absolute Auto 8.5 K/mm3 (1.3-6.7); Neutrophils Percent Auto 78.6 % (45.5-73.1); Nucleated Red Blood Cells Perc 0.2 % (0.0-0.2); Platelet Count Result 161 k/mm3 (150-375); Red Blood Count 2.89 M/mm3 (4.6-6.20); Red Cell Distribution Width 18.6 % (11.5-14.5); White Blood Count 10.8 K/mm3 (4.5-10.0)
[2022-06-17 06:57] LABS: Alanine Aminotransferase 12 U/L (6-50); Albumin Level 2.8 g/dL (3.5-5.1); Alkaline Phosphatase 131 U/L (38-126); Anion Gap 9 mmol/L (8-16); Aspartate Amino Transferase 24 U/L (17-59); Bilirubin,Total 0.5 mg/dL (0.2-1.3); Blood Urea Nitrogen 27 mg/dL (9-20); Calcium 7.9 mg/dL (8.4-10.2); Carbon Dioxide 33 mmol/L (22-30); Chloride 93 mmol/L (98-107); Estimated CRCL calculation 18 ml/min; Estimated Glomerular Filt Rate 21; Glucose 118 mg/dL (65-110); Potassium 3.3 mmol/L (3.4-5.0); Sodium 135 mmol/L (137-145)
[2022-06-17 07:00] LABS: Magnesium 1.9 mg/dL (1.6-2.3); Phosphorus 2.8 mg/dL (2.5-4.5)
--- NOTE | 2022-06-17 08:13 | WPDINTPN ---
Progress Note: A&P Assessment and Plan (1) Cardiac arrest: Code(s): I46.9 - Cardiac arrest, cause unspecified Status: Acute Assessment and Plan: Exact etiology not clear but patient has significant coronary artery disease and cardiomyopathy, he received propofol for sedation which itself can cause bradycardia, hypoventilation from sedation during the procedure is another possibility which could have led to respiratory acidosis, respiratory failure, bradycardia and PEA arrest -Worsening anemia could be another contributing factor as his hemoglobin is 6.9 -Aspiration is also possibility although patient was NPO prior to the procedure because of his GI bleed and for EGD Post resuscitation EKG does not show any ST elevation and shows sinus rhythm with interventricular conduction delay and ST abnormality in lateral leads which are consistent with his old EKGs -troponins have plateaued -patient on Levaquin (06/11) and Flagyl (06/12) (for possible SBP was started by GI) -06/14/2022: Had to be restarted on Levophed overnight but is currently off -patient status post target temperature management, currently has been very warm to normal body temperature since 9:00 p.m. on 06/13/2022 -patient following commands in all extremities -appreciate cardiology following the patient -06/12/2022: Cardiac echocardiogram: LV systolic function is severely reduced with EF of 25-30%, grade 3 diastolic dysfunction, RV systolic function is moderately reduced, mild mitral valve regurg, mild tricuspid valve regurg, moderate pulmonary hypertension with RVSP of 49 mmHg. (2) Acute respiratory failure: Code(s): J96.00 - Acute respiratory failure, unspecified whether with hypoxia or hypercapnia Status: Acute Assessment and Plan: Respiratory failure likely related to cardiac arrest Chest x-ray 06/16: Mild pulmonary edema, stable left pleural effusion, stable airspace opacities at left lung base consistent with atelectasis versus pneumonia, cardiomegaly. Patient currently on CMV mode of ventilation, peep of 5 and 30% FiO2 Chest x-ray reviewed ABG reviewed -change tidal volume to 350 and rate to 12 Too drowsy to wean from ventilator. Placed on pressure support ventilation 10/16 for adequate RSBI. Will continue as tolerated Continue to hold all sedation Continue hemodialysis to remove fluid Continue Levaquin, Flagyl for anaerobic coverage for possible aspiration (3) End-stage renal disease on hemodialysis: Code(s): N18.6 - End stage renal disease; Z99.2 - Dependence on renal dialysis Status: Acute Assessment and Plan: Patient has a history of end-stage renal disease and started on hemodialysis in April 2022 -appreciate nephrology following the patient, -06/16 most recent dialysisl -dialysis per Nephrology (4) GI bleed: Code(s): K92.2 - Gastrointestinal hemorrhage, unspecified Status: Acute Assessment and Plan: 06/12 EGD showed small ulcer which was not bleeding and gastritis, hiatal hernia PPI IV q.12 hours 06/12 Hemoglobin was 6.9, transfuse1 unit of PRBC Monitor hemoglobin and transfuse additional units as needed (5) DVT (deep venous thrombosis): Code(s): I82.409 - Acute embolism and thrombosis of unspecified deep veins of unspecified lower extremity Status: Acute Assessment and Plan: 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 Anticoagulation held due to GI bleed 06/12 venous Doppler of right lower extremity does not show any DVT at this time (6) Diabetes: Code(s): E11.9 - Type 2 diabetes mellitus without complications Status: Chronic Assessment and Plan: Continue sliding scale insulin Accu-Cheks Hold Lantus (7) Acute on chronic combined systolic and diastolic CHF (congestive heart failure): Code(s): I50.43 - Acute on chronic combined systolic (congestive) and diastolic (congestive) heart failure Status: Acute Assessment and Plan: E
[2022-06-17 08:18] LABS: Ovalocytes 1+ (NORMAL); Platelet Estimate Adequate (Adequate); Poikilocytosis 1+ (NORMAL)
--- NOTE | 2022-06-17 09:03 | PM.PNCARD ---
Progress Note: A&P Assessment and Plan (1) Cardiac arrest: Code(s): I46.9 - Cardiac arrest, cause unspecified Status: Acute (2) Hx of CABG: Code(s): Z95.1 - Presence of aortocoronary bypass graft Status: Acute (3) Ischemic cardiomyopathy: Code(s): I25.5 - Ischemic cardiomyopathy Status: Acute Plan 76-year-old man with ischemic cardiomyopathy and end-stage ischemic heart disease as mentioned in previous notes. He entered the hospital this time with some GI bleeding and in the GI lab had a PEA arrest. He is now on the ventilator in the ICU. Short-term prognosis is guarded long-term prognosis is extremely poor. If he does survive to be extubated we will gradually resume his heart failure medications. No other cardiac recommendations at this time aggressive supportive care is being provided Yehuda Richmond MD [facility] Subjective Date/time seen: 06/17/22 09:03 Interval history: Follow-up visit in this 76-year-old man with: Longstanding coronary artery disease with 2 previous coronary bypass operations in significant ischemic cardiomyopathy. Patient was hospitalized with GI bleeding and while in the hospital suffered a PEA arrest. He was course then intubated and brought to the ICU where hypothermia protocol was used. The today the patient is rewarmed and remains unresponsive. Patient has been known to have end-stage ischemic heart disease for several years with only remaining coronary circulation being old vein graft to his LAD. No opportunities were identified for revascularization. This past year the patient progressed to end-stage renal disease and has been on hemodialysis. This patient is well-known to me and was understanding that he was at end-stage disease. date of service 06/17/2022 : Patient still in the ICU on ventilator support. Very lethargic. Heart failure medications are all on hold at this time. Exam Const: General: cooperative and comfortable; No healthy appearing or confusion Orientation/consciousness: oriented to person, patient oriented x3 and No confusion Other: Intubated obtunded patient HENMT: Mouth: Yes moist mucous membranes Eyes: Sclera: sclerae normal EOM: EOMs intact bilaterally Neck: Neck: supple and no JVD Thyroid: thyroid normal Carotids: no bruits Resp: Effort & Inspection: normal respiratory effort Auscultation: not clear to auscultation bilaterally and rhonchi Other: Scattered large airway rhonchi noted no rales no wheezing Cardio: Rate: regular rate Rhythm: regular rhythm Heart sounds: no murmurs Other: PMI is laterally displaced no obvious murmur GI: Inspection: normal to inspection Auscultation: normal bowel sounds Urinary Catheter: Urinary Catheter: patent and draining Skin: General skin exam: normal color and no rashes or lesions noted Neuro: General: oriented to person, patient oriented x3 and No confusion Other: Comatose Extrem: Right lower extremity: edema Left lower extremity: edema Other: No significant edema Psych: Appearance: grossly normal Mental Status: mental status grossly abnormal Objective Data Vital Signs Vital Signs: Vital Signs - 24 hr 06/16/22 10:00 06/16/22 10:00 06/16/22 11:30 Temperature 37.5 C Pulse Rate 80 80 76 Respiratory Rate 16 Blood Pressure 107/62 Pulse Oximetry 100 100 Oxygen Delivery Mechanical Ventilation Fraction of Inspired Oxygen 30 06/16/22 11:42 06/16/22 11:43 06/16/22 12:00 Temperature 37.2 C Pulse Rate 82 Respiratory Rate 16 Blood Pressure 116/58 L Pulse Oximetry 100 100 Oxygen Delivery Mechanical Ventilation Fraction of Inspired Oxygen 30 30 06/16/22 12:00 06/16/22 12:55 06/16/22 12:45 Temperature 37.2 C Pulse Rate 81 82 78 Respiratory Rate 12 Blood Pressure 107/60 112/81 Pulse Oximetry 100 Oxygen Delivery Fraction of Inspired Oxygen 06/16/22 12:45 06/16/22 13:15 06/16/22 13:30 Temperature
[2022-06-17] MEDS: POTASSIUM CHLORIDE 20 MEQ PACKET (FOR LIQUID) 40 MEQ FEED TUBE (09:51)
[2022-06-17] MEDS: PANTOPRAZOLE SODIUM IV 40 MG VIAL IV PUSH ×2 (09:52→20:42)
[2022-06-17] MEDS: MINERAL OIL/WHITE PETROLATUM OINTMENT 1 APPLIC EACH EYE ×2 (09:52→20:42)
[2022-06-17] MEDS: OPTI-GEN TAB 1 TABLET PO ×2 (09:53→20:41)
[2022-06-17] MEDS: ATORVASTATIN 40 MG TABLET 80 MG PO (09:53)
[2022-06-17] MEDS: LEVOTHYROXINE SODIUM 50 MCG TABLET PO (09:53)
--- NOTE | 2022-06-17 10:33 | PM.PNNEP ---
Progress Note: A&P Additional Plan 1. Jaime is a very pleasant gentleman with end-stage renal disease. ? He gets dialysis 3 times a week. Due for dialysis on Sunday. Had some fluid off yesterday. Discussed with Dr. Robison 2.? The patient has black stools. ? EGD showed ulcerative gastritis.? This explains the bleeding. ? Hb 6.9 at one point.? Hemoglobin stable at 8.6. ? He is on pantoprazole. ? reticulocyte count is okay.? Will continue Epogen. 3. the patient has renal osteodystrophy. ? Phosphorus level is normal. 4. the patient has hypertension. ? Blood pressure meds are on hold.? Blood pressure still a little bit soft. He did allow some fluid removal yesterday though. 5.? He has congestive cardiomyopathy. Continue to remove fluid as tolerated. 6.? He has hyperlipidemia and is on atorvastatin. 7.? He has diabetes.? He is on insulin sliding scale and Accu-Cheks? per journeyman painter/hospitalist. Subjective Date/time seen: 06/17/22 10:33 Interval history: Patient is on the ventilator. Still no sedatives. He opens his eyes to calling his name and he follows some instructions. Review of Systems Cardiovascular: Cardiovascular: Reports no additional cardiovascular complaints Respiratory: Respiratory: Reports no additional respiratory complaints Gastrointestinal: Gastrointestinal: Reports no additional gastrointestinal complaints Genitourinary: Genitourinary: Reports no additional male genitourinary complaints Exam Narrative: WDWN in NAD skin no rash head ncat lungs coarse bilaterally. cor reg no rub abd BS+ nontender and soft ext 1+ edema. Improved. Objective Data Vital Signs Vital Signs: Vital Signs - 24 hr 06/16/22 11:30 06/16/22 11:42 06/16/22 11:43 Temperature Pulse Rate 76 Respiratory Rate Blood Pressure Pulse Oximetry 100 100 Oxygen Delivery Mechanical Ventilation Mechanical Ventilation Fraction of Inspired Oxygen 30 30 30 06/16/22 12:00 06/16/22 12:00 06/16/22 12:55 Temperature 37.2 C Pulse Rate 82 81 82 Respiratory Rate 16 Blood Pressure 116/58 L 107/60 Pulse Oximetry 100 Oxygen Delivery Fraction of Inspired Oxygen 06/16/22 12:45 06/16/22 12:45 06/16/22 13:15 Temperature 37.2 C Pulse Rate 78 80 Respiratory Rate 12 Blood Pressure 112/81 106/70 Pulse Oximetry 100 Oxygen Delivery Fraction of Inspired Oxygen 30 06/16/22 13:30 06/16/22 13:45 06/16/22 13:55 Temperature Pulse Rate 75 71 72 Respiratory Rate Blood Pressure 111/59 L 87/48 L 87/48 L Pulse Oximetry Oxygen Delivery Fraction of Inspired Oxygen 06/16/22 14:01 06/16/22 14:00 06/16/22 14:00 Temperature 36.9 C Pulse Rate 106 H 106 H 106 H Respiratory Rate 16 Blood Pressure 138/83 138/83 Pulse Oximetry 100 Oxygen Delivery Fraction of Inspired Oxygen 06/16/22 14:00 06/16/22 14:15 06/16/22 14:30 Temperature Pulse Rate 108 H 104 H 103 H Respiratory Rate Blood Pressure 138/83 134/80 139/68 Pulse Oximetry Oxygen Delivery Fraction of Inspired Oxygen 06/16/22 14:45 06/16/22 15:00 06/16/22 14:00 Temperature Pulse Rate 96 102 H 103 H Respiratory Rate Blood Pressure 132/62 122/67 Pulse Oximetry 99 Oxygen Delivery Mechanical Ventilation Fraction of Inspired Oxygen 30 06/16/22 14:41 06/16/22 15:15 06/16/22 15:35 Temperature Pulse Rate 94 101 H 98 Respiratory Rate Blood Pressure 139/68 121/62 112/59 L Pulse Oximetry Oxygen Delivery Fraction of Inspired Oxygen 06/16/22 15:36 06/16/22 15:37 06/16/22 15:37 Temperature Pulse Rate 96 Respiratory Rate Blood Pressure 112/59 L Pulse Oximetry 100 Oxygen Delivery Mechanical Ventilation Fraction of Inspired Oxygen 30 30 06/16/22 16:00 06/16/22 15:55 06/16/22 16:07 Temperature 36.9 C 36.8 C Pulse Rate 91 104 H 90 Respiratory Rate 18 14 Blood Pressure 119/63 110/64 119/63 Pulse Oximetry 99 99 Oxy
--- NOTE | 2022-06-17 11:03 | ECG_ITS ---
Measurements Intervals [place] Rate: 107 P: 34 WI: 143 QRS: 47 QRSD: 124 T: 212 QT: 340 QTc: 455 Interpretive Statements SINUS TACHYCARDIA WITH OCCASIONAL VENTRICULAR PREMATURE COMPLEXES MODERATE INTRAVENTRICULAR CONDUCTION DELAY [110+ ms QRS DURATION] ST DEVIATION AND MODERATE T-WAVE ABNORMALITY, CONSIDER LATERAL ISCHEMIA [-0.1+ mV T WAVE IN I/aVL/V5/V6] COMPARED TO ECG 06/12/2022 14:05:02 HEART RATE IS INCREASED NO OTHER SIGNIFICANT CHANGE Electronically Signed On 06-17-2022 14:49:44 CDT by Yehuda Richmond M.D.
[2022-06-17 11:19] LABS: Hematocrit 31.7 % (42.0-52.0); Hemoglobin 9.3 g/dL (14.0-18.0); Mean Corpuscular HGB Conc 29.3 g/dl (32-36); Mean Corpuscular Hemoglobin 29.7 pg (26-34); Mean Corpuscular Volume 101.3 fl (80-100); Mean Platelet Volume 10.9 fl (7.4-10.4); Platelet Count Result 178 k/mm3 (150-375); Red Blood Count 3.13 M/mm3 (4.6-6.20); Red Cell Distribution Width 18.6 % (11.5-14.5); White Blood Count 11.5 K/mm3 (4.5-10.0)
--- NOTE | 2022-06-17 11:24 | PDCODEBLUE ---
Code Blue Note Code Blue Note Time Arrived at Code Blue: 1059 Initial Rhythm on Arrival: PEA Airway Management: Pt being bagged on arrival Chest Compressions: In process on arrival to bedside Result of Code Blue: Sinus Tach Cardiac Rhythm Post Code: Sinus Tachycardia Code Blue Summary: Code blue was announced in ICU room 5. Patient was on pressure support weaning trial. When RT suction the patient to clear airway secretions from ET tube. Patient became bradycardic and is pacemaker kicked in and patient was being paced. Patient did not had any palpable pulse at that time and hence CPR was started. Patient received 1 round of CPR and did not receive any drug before pulse was palpable. EKG was performed which showed sinus tachycardia with unchanged T-wave changes in lateral leads Patient was placed back on ventilator. Chest x-ray was done which showed ET tube in good location, bilateral infiltrates and no other significant change. ABG and electrolytes have been ordered pending. I suspect patient had a vagal response to suctioning which led to bradycardia and then PEA. I discussed case with Dr. Richmond from cardiology. Patient has [employer] AICD pacemaker with set rate of 40 which may be too low for him since he has cardiomyopathy with poor cardiac output. We will consult device maker to interrogate the device and increase the minimal set rate to 60 see if that helps.
[2022-06-17 11:31] LABS: Anion Gap 8 mmol/L (8-16); Blood Urea Nitrogen 29 mg/dL (9-20); Carbon Dioxide 34 mmol/L (22-30); Chloride 94 mmol/L (98-107); Estimated CRCL calculation 17 ml/min; Estimated Glomerular Filt Rate 19; Glucose 152 mg/dL (65-110); Potassium 4.1 mmol/L (3.4-5.0); Sodium 136 mmol/L (137-145)
[2022-06-17 11:41] LABS: Alveolar/Arterial O2 Gradient 209.4 mmHg; Base Excess ABG 4.3 mEq/l (+/-2.0); Fractional Inspired Oxygen 50 %; HCO3 ABG 28.7 mEq/l (22.0-26.0); Oxygen Content ABG 14.7 %vol (16.0-22.0); Oxygen Saturation ABG 97.7 % (95.0-100.0); PCO2 ABG 42.5 mmHg (35.0-45.0); PO2 ABG 99.3 mmHg (80.0-100.0); PO2 FiO2 Ratio Arterial Blood 1.99 %; Total Hemoglobin 10.8 g/dL (12.0-18.0); pH ABG 7.448 (7.350-7.450)
[2022-06-17 11:42] LABS: Device VENTILATOR; Modified Allen's Test Pass; Site Drawn RIGHT RADIAL
[2022-06-17 11:43] LABS: Arterial Blood Gas PEEP 5 cmH2O; Arterial Blood Gas Tidal Volume 350 ml; Arterial Blood Gas Vent Mode CMV; Arterial Blood Gas Ventilator rate 12 /MIN
[2022-06-17 11:44] LABS: Troponin I 0.199 ng/mL (0.000-0.034)
--- NOTE | 2022-06-17 13:11 | PC.NURSE ---
0977- Talked with Nella from [employer], stated she will be here to adjust his single chamber pacemaker to a set rate of 60 when shes able t
[2022-06-17] MEDS: METOCLOPRAMIDE HCL 10 MG/10 ML SOLN UDC PO (17:08)
[2022-06-17 17:14] LABS: Glucose Point of Care 97 mg/dl (65-105)
[2022-06-17] MEDS: CHOLECALCIFEROL 1,000 UNITS TABLET 5000 UNITS PO (20:41)
[2022-06-17 23:40] LABS: Glucose Point of Care 109 mg/dl (65-105)
[2022-06-18] VITALS (27 sets, daily range): BP systolic 90–138; BP diastolic 51–76; PULSE 67–99; RESP 12–20; TEMP 36.2–36.9; O2SAT 90–100
[2022-06-18] MEDS: metroNIDAZOLE 500 MG/ISO 100ML 500 MG/100 ML BAG 100 MG IVPB ×4 (00:07→23:43)
[2022-06-18 04:42] LABS: Basophils Percent Auto 0.3 % (0.2-1.2); Eosinophils Absolute Auto 0.7 K/mm3 (0-0.3); Eosinophils Percent Auto 5.5 % (0-4.4); Hemoglobin 8.6 g/dL (14.0-18.0); Immature Granulocyte Absolute 0.05 K/mm3 (0.00-0.031); Immature Granulocyte Percent A 0.4 % (0-0.5); Lymphocytes Absolute Auto 0.84 K/mm3 (0.9-3.2); Lymphocytes Percent Auto 7.1 % (18.3-44.2); Mean Corpuscular HGB Conc 29.7 g/dl (32-36); Mean Platelet Volume 10.6 fl (7.4-10.4); Monocytes Absolute Auto 0.9 K/mm3 (0.1-0.6); Monocytes Percent Auto 7.3 % (2.6-8.5); Neutrophils Absolute Auto 9.3 K/mm3 (1.3-6.7); Neutrophils Percent Auto 79.4 % (45.5-73.1); Platelet Count Result 148 k/mm3 (150-375); Red Blood Count 2.87 M/mm3 (4.6-6.20); Red Cell Distribution Width 17.9 % (11.5-14.5); White Blood Count 11.8 K/mm3 (4.5-10.0)
[2022-06-18 04:52] LABS: Alanine Aminotransferase 11 U/L (6-50); Albumin Level 2.7 g/dL (3.5-5.1); Alkaline Phosphatase 131 U/L (38-126); Anion Gap 6 mmol/L (8-16); Aspartate Amino Transferase 29 U/L (17-59); Bilirubin,Total 0.4 mg/dL (0.2-1.3); Blood Urea Nitrogen 39 mg/dL (9-20); Calcium 8.4 mg/dL (8.4-10.2); Carbon Dioxide 32 mmol/L (22-30); Chloride 94 mmol/L (98-107); Estimated CRCL calculation 15 ml/min; Estimated Glomerular Filt Rate 16; Glucose 120 mg/dL (65-110); Phosphorus 3.9 mg/dL (2.5-4.5); Potassium 3.6 mmol/L (3.4-5.0); Sodium 132 mmol/L (137-145)
[2022-06-18 05:05] LABS: Anisocytosis 1+ (NORMAL); Ovalocytes 1+ (NORMAL); Platelet Estimate Adequate (Adequate)
[2022-06-18 05:22] LABS: Alveolar/Arterial O2 Gradient 100.1 mmHg; Base Excess ABG 5.4 mEq/l (+/-2.0); Carboxyhemoglobin 0.1 % THb (0-2.0); Fractional Inspired Oxygen 50 %; Methemoglobin ABG 0.4 %THb (0-1.5); Oxygen Content ABG 20.1 %vol (16.0-22.0); Oxygen Saturation ABG 99.5 % (95.0-100.0); Oxyhemoglobin 98.5 % THb (90.0-100.0); PCO2 ABG 38.7 mmHg (35.0-45.0); PO2 ABG 212.9 mmHg (80.0-100.0); PO2 FiO2 Ratio Arterial Blood 4.26 %; Total Hemoglobin 14.2 g/dL (12.0-18.0); pH ABG 7.492 (7.350-7.450)
[2022-06-18 05:24] LABS: Device VENTILATOR; Modified Allen's Test Pass; Site Drawn RIGHT RADIAL
[2022-06-18 05:25] LABS: Arterial Blood Gas PEEP 5 cmH2O; Arterial Blood Gas Tidal Volume 360 ml; Arterial Blood Gas Vent Mode CMV; Arterial Blood Gas Ventilator rate 12 /MIN
[2022-06-18] MEDS: CENTRAL LINE FLUSH 10 ML IV PUSH ×4 (06:15→20:12)
[2022-06-18] MEDS: METOCLOPRAMIDE HCL 10 MG/10 ML SOLN UDC PO (06:15)
[2022-06-18] MEDS: PANTOPRAZOLE SODIUM IV 40 MG VIAL IV PUSH ×2 (08:23→20:11)
[2022-06-18] MEDS: OPTI-GEN TAB 1 TABLET PO ×2 (08:23→20:11)
[2022-06-18] MEDS: LEVOTHYROXINE SODIUM 50 MCG TABLET PO (08:23)
[2022-06-18] MEDS: MINERAL OIL/WHITE PETROLATUM OINTMENT 1 APPLIC EACH EYE ×2 (08:24→20:11)
[2022-06-18] MEDS: ATORVASTATIN 40 MG TABLET 80 MG PO (08:24)
--- NOTE | 2022-06-18 08:39 | WPDINTPN ---
Progress Note: A&P Assessment and Plan (1) Cardiac arrest: Code(s): I46.9 - Cardiac arrest, cause unspecified Status: Acute Assessment and Plan: Exact etiology not clear but patient has significant coronary artery disease and cardiomyopathy, he received propofol for sedation which itself can cause bradycardia, hypoventilation from sedation during the procedure is another possibility which could have led to respiratory acidosis, respiratory failure, bradycardia and PEA arrest -Worsening anemia could be another contributing factor as his hemoglobin is 6.9 -Aspiration is also possibility although patient was NPO prior to the procedure because of his GI bleed and for EGD 06/17/2022: Patient in the brief cardiac arrest with 1 round of CPR with ROSC, No medications were given. Likely secondary to rescue cath suction and possibly vasovagal as he bradycardic and then lost his pulse. -off antibiotics -patient has been requiring Levophed on for dialysis -patient continues to follow commands in all extremities -appreciate cardiology following the patient -06/12/2022: Cardiac echocardiogram: LV systolic function is severely reduced with EF of 25-30%, grade 3 diastolic dysfunction, RV systolic function is moderately reduced, mild mitral valve regurg, mild tricuspid valve regurg, moderate pulmonary hypertension with RVSP of 49 mmHg. (2) Acute respiratory failure: Code(s): J96.00 - Acute respiratory failure, unspecified whether with hypoxia or hypercapnia Status: Acute Assessment and Plan: Respiratory failure likely related to cardiac arrest -intubated 06/12/2022 Chest x-ray 06/18: Increased pulmonary infiltrates especially on the left since 06/17/2022, which may be due to pulmonary edema and/or pneumonia? Patient currently on CMV mode of ventilation, peep of 5 and 50% FiO2 rate of 12 -placed patient on pressure support ventilation 10/16, will continue to wean as tolerated he is too drowsy to wean from ventilator. Continue to hold all sedation Continue hemodialysis to remove fluid Status post Levaquin, Flagyl x7 days for possible aspiration pneumonia (3) End-stage renal disease on hemodialysis: Code(s): N18.6 - End stage renal disease; Z99.2 - Dependence on renal dialysis Status: Acute Assessment and Plan: Patient has a history of end-stage renal disease and started on hemodialysis in April 2022 -appreciate nephrology following the patient, -06/16 most recent dialysis -dialysis per Nephrology (4) GI bleed: Code(s): K92.2 - Gastrointestinal hemorrhage, unspecified Status: Acute Assessment and Plan: 06/12 EGD showed small ulcer which was not bleeding and gastritis, hiatal hernia PPI IV q.12 hours 06/12 Hemoglobin was 6.9, transfuse1 unit of PRBC Monitor hemoglobin and transfuse additional units as needed (5) DVT (deep venous thrombosis): Code(s): I82.409 - Acute embolism and thrombosis of unspecified deep veins of unspecified lower extremity Status: Acute Assessment and Plan: 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uire dialysis for fluid removal (8) Hypotension: Code(s): I95.9 - Hypotension, unspecified Status: Acute Assessment and Plan: Patient was hypotensive post cardiac arrest, was given 1 L of LR bolus, was briefly on Levophed, patient di
--- NOTE | 2022-06-18 10:04 | PM.PNCARD ---
Progress Note: A&P Assessment and Plan (1) Hx of CABG: Code(s): Z95.1 - Presence of aortocoronary bypass graft Status: Acute (2) Ischemic cardiomyopathy: Code(s): I25.5 - Ischemic cardiomyopathy Status: Acute Plan 76-year-old man with severe ischemic cardiomyopathy, long history of coronary disease and 2 previous bypass operations as mentioned in many previous notes. He has been very unstable hemodynamically off and on during this hospitalization. Initially admitted with GI bleeding. As such anticoagulation and anti-platelet medication are on hold. We will continue to follow as he is receiving aggressive supportive care. If he does have a sick become successfully extubated and stabilizes we will gradually try to re titrate in some of his heart failure medication. At this time since he is occasionally requiring pressor support we will hold off on that. obviously long-term prognosis is very poor Yehuda Richmond MD [facility] Subjective Date/time seen: Date of service:06/18/22 10:04 Interval history: Follow-up visit in this 76-year-old man with: Longstanding coronary artery disease with 2 previous coronary bypass operations in significant ischemic cardiomyopathy. Patient was hospitalized with GI bleeding and while in the hospital suffered a PEA arrest. He was course then intubated and brought to the ICU where hypothermia protocol was used. The today the patient is rewarmed and remains unresponsive. Patient has been known to have end-stage ischemic heart disease for several years with only remaining coronary circulation being old vein graft to his LAD. No opportunities were identified for revascularization. This past year the patient progressed to end-stage renal disease and has been on hemodialysis. This patient is well-known to me and was understanding that he was at end-stage disease. date of service 06/17/2022 : Patient still in the ICU on ventilator support. Very lethargic. Heart failure medications are all on hold at this time. Date of service 06/18/2022: Patient is still on the ventilator in the ICU but is neurologically responsive and follows commands at this time. Hemodynamically stable. Exam Const: General: comfortable Other: Intubated chronically ill elderly man is alert and responsive and follows commands HENMT: Mouth: Yes moist mucous membranes Eyes: Sclera: sclerae normal Neck: Neck: supple Resp: Effort & Inspection: normal respiratory effort Other: few scattered rhonchi no wheezing no rales Cardio: Rate: regular rate Rhythm: regular rhythm Other: no audible murmur GI: GI Palp: Yes Soft to palpation Auscultation: normal bowel sounds Neuro: Other: patient is neurologically recovering quite remarkably Extrem: General: normal to inspection Objective Data Vital Signs Vital Signs: Vital Signs - 24 hr 06/17/22 11:17 06/17/22 12:00 06/17/22 12:00 Temperature Pulse Rate 103 H 91 91 Respiratory Rate 17 Blood Pressure Pulse Oximetry 97 98 Oxygen Delivery Mechanical Ventilation Mechanical Ventilation Fraction of Inspired Oxygen 50 30 06/17/22 12:00 06/17/22 12:00 06/17/22 14:20 Temperature 37.2 C Pulse Rate 91 83 Respiratory Rate 17 Blood Pressure 105/66 Pulse Oximetry 98 97 Oxygen Delivery Mechanical Ventilation Fraction of Inspired Oxygen 30 50 06/17/22 14:00 06/17/22 14:00 06/17/22 16:00 Temperature Pulse Rate 84 93 85 Respiratory Rate 10 L 14 Blood Pressure 97/71 L Pulse Oximetry 94 98 Oxygen Delivery Mechanical Ventilation Fraction of Inspired Oxygen 30 06/17/22 16:00 06/17/22 16:00 06/17/22 16:00 Temperature 36.8 C Pulse Rate 85 85 Respiratory Rate 14 Blood Pressure 103/46 L Pulse Oximetry 98 Oxygen Delivery Fraction of Inspired Oxygen 30 06/17/22 17:26 06/17/22 18:00 06/17/22 18:00 Temperature 36.8 C Pulse Rate 80 85 85 Respiratory Rate 17 Blo
--- NOTE | 2022-06-18 10:14 | PM.PNNEP ---
Progress Note: A&P Additional Plan 1. Jaime is a very pleasant gentleman with end-stage renal disease. ? He gets dialysis 3 times a week. Due for dialysis tomorrow Had some fluid off yesterday. Discussed with Dr Stein 2.? The patient had black stools. ? EGD showed ulcerative gastritis.? This explains the bleeding. ? Hb 6.9 at one point.? Hemoglobin stable in the mid 8. ? He is on pantoprazole. ? reticulocyte count is okay.? Will continue Epogen. 3. the patient has renal osteodystrophy. ? Phosphorus level is normal. 4. the patient has hypertension. ? Blood pressure meds are on hold.? Blood pressure still a little bit soft with a systolic between 90 and 110. 5.? He has congestive cardiomyopathy. Continue to remove fluid as tolerated. 6.? He has hyperlipidemia and is on atorvastatin. 7.? He has diabetes.? He is on insulin sliding scale and Accu-Cheks? per life skills instructor/hospitalist. 8. Patient has respiratory failure. His vent settings: Minute volume is only 5, FiO2 40%. Subjective Date/time seen: 06/18/22 10:14 Interval history: Patient is on the ventilator. No sedatives. He had a respiratory arrest yesterday during suctioning. Developed bradycardia. His eyes are open and he is aware of the examiner. Nods his head yes and no and follows commands. Exam Narrative: WDWN in NAD skin no rash or subQ nodules head ncat lungs coarse bilaterally. cor reg no rub or gallop abd BS+ nontender and soft ext 1+ edema. Improved. Objective Data Vital Signs Vital Signs: Vital Signs - 24 hr 06/17/22 11:17 06/17/22 12:00 06/17/22 12:00 Temperature Pulse Rate 103 H 91 91 Respiratory Rate 17 Blood Pressure Pulse Oximetry 97 98 Oxygen Delivery Mechanical Ventilation Mechanical Ventilation Fraction of Inspired Oxygen 50 30 06/17/22 12:00 06/17/22 12:00 06/17/22 14:20 Temperature 37.2 C Pulse Rate 91 83 Respiratory Rate 17 Blood Pressure 105/66 Pulse Oximetry 98 97 Oxygen Delivery Mechanical Ventilation Fraction of Inspired Oxygen 30 50 06/17/22 14:00 06/17/22 14:00 06/17/22 16:00 Temperature Pulse Rate 84 93 85 Respiratory Rate 10 L 14 Blood Pressure 97/71 L Pulse Oximetry 94 98 Oxygen Delivery Mechanical Ventilation Fraction of Inspired Oxygen 30 06/17/22 16:00 06/17/22 16:00 06/17/22 16:00 Temperature 36.8 C Pulse Rate 85 85 Respiratory Rate 14 Blood Pressure 103/46 L Pulse Oximetry 98 Oxygen Delivery Fraction of Inspired Oxygen 30 06/17/22 17:26 06/17/22 18:00 06/17/22 18:00 Temperature 36.8 C Pulse Rate 80 85 85 Respiratory Rate 17 Blood Pressure 87/50 L Pulse Oximetry 97 97 Oxygen Delivery Mechanical Ventilation Fraction of Inspired Oxygen 50 06/17/22 20:31 06/17/22 20:00 06/17/22 20:00 Temperature Pulse Rate 81 Respiratory Rate Blood Pressure Pulse Oximetry 95 Oxygen Delivery Mechanical Ventilation Mechanical Ventilation Fraction of Inspired Oxygen 50 50 50 06/17/22 20:01 06/17/22 21:01 06/17/22 21:16 Temperature 36.8 C 36.8 C 36.8 C Pulse Rate 80 83 81 Respiratory Rate 15 31 H 14 Blood Pressure 83/47 L 90/58 L 103/54 L Pulse Oximetry 96 99 99 Oxygen Delivery Fraction of Inspired Oxygen 06/17/22 22:01 06/18/22 00:00 06/17/22 20:00 Temperature 36.7 C Pulse Rate 81 78 Respiratory Rate 22 H Blood Pressure 104/55 L Pulse Oximetry 99 Oxygen Delivery Mechanical Ventilation Fraction of Inspired Oxygen 50 06/17/22 22:00 06/18/22 00:00 06/18/22 00:00 Temperature Pulse Rate 82 76 Respiratory Rate Blood Pressure Pulse Oximetry Oxygen Delivery Fraction of Inspired Oxygen 50 06/18/22 00:16 06/18/22 02:18 06/17/22 23:37 Temperature 36.9 C Pulse Rate 78 81 81 Respiratory Rate 15 Blood Pressure 101/57 L Pulse Oximetry 98 95 95 Oxygen Delivery Mechanical Ventilation Mechanical Ventilation Fraction of Inspired
[2022-06-18] MEDS: DORNASE ALFA INH SOLN 1 MG/ML 2.5 ML AMP 2.5 MG INHALATION ×2 (10:45→19:20)
[2022-06-18 11:54] LABS: Glucose Point of Care 136 mg/dl (65-105)
[2022-06-18] MEDS: CENTRAL LINE FLUSH 20 ML IV PUSH (17:55)
[2022-06-18 18:16] LABS: Glucose Point of Care 125 mg/dl (65-105)
--- NOTE | 2022-06-18 18:38 | PC.NURSE ---
1830- Patient self extubated , Joselyn Perkins @ bedside emergently reintubating patient.
--- NOTE | 2022-06-18 18:40 | WPDPROCEDUR ---
Procedures Intubation Intubation Date: 06/18/22 Intubation Time: 18:40 Consent: Performed emergently as patient self-extubated. Sedative: etomidate Mg given: 30 Paralytic: succinylcholine Mg given: 80 Laryngoscope: fiber optic video scope Assist device used: fiber optic device ET tube size: 7.5 Tube secured depth (cm): 23 Tube secured location: lips Tube placement confirmation: visualized tube passing through cords, equal breath sounds bilaterally, no breath sounds over epigastrium and confirmation by capnometry Patient tolerated procedure: well Intubation complications: none Additional comments: Call received from community service officer coordinator with reports that I was needed at the bedside immediately as the patient had extubated himself. Upon arrival, he was receiving assistance with AMBU per nurse with an SpO2 in the upper 90s. Remaining vital signs were stable. Patients eyes would open to stimuli though he could not follow commands. He was pre-oxygenated to 100% and was given RSI as above. He was intubated easily and atraumatically on first attempt. O2 did drop to 86% briefly (less than 5 seconds) and his oxygenation improved rapidly when cuff was reinflated fully. No complications noted. Chest xray pending at this time. Vent management per rope coiling machine operator. Attending ED physician, Dr. Evaristo Mckinney, was notified of the procedure and was readily available if needed.
[2022-06-18] MEDS: dexmedeTOMIDine 400 MCG/100 ML 400 MCG/100 ML BAG IV CONT (18:58)
--- NOTE | 2022-06-18 19:53 | PCRCNOTE ---
1830 pt was intubated from a self extubation. Pt tube measures 24cm at lip with a 7.5 tube. colormetric c02 used color changed to yellow, bilaterally breath sound diminished. Verbal vent order changed to previous setting CMV, 350VT, 12RR, 5 PEEP. Pt is currently resting oxygen has been wean down from 100% post intubation. Fi02 50% no increased WOB or SOB present.
--- NOTE | 2022-06-18 20:09 | PCRCNOTE ---
Pt switched back to ASV mode 100% MV, PEEP 5, Fi02 40% . Sp02 97%.
[2022-06-18] MEDS: CHOLECALCIFEROL 1,000 UNITS TABLET 5000 UNITS PO (20:11)
[2022-06-18] MEDS: SENNA/DOCUSATE SODIUM TABLET 1 TAB PO (20:11)
[2022-06-18 23:56] LABS: Glucose Point of Care 124 mg/dl (65-105)
[2022-06-19] VITALS (44 sets, daily range): BP systolic 97–135; BP diastolic 47–91; PULSE 64–105; RESP 12–26; TEMP 36.5–37.9; O2SAT 93–100
[2022-06-19 05:11] LABS: Basophils Percent Auto 0.3 % (0.2-1.2); Eosinophils Absolute Auto 0.6 K/mm3 (0-0.3); Eosinophils Percent Auto 5.4 % (0-4.4); Hematocrit 27.1 % (42.0-52.0); Hemoglobin 8.1 g/dL (14.0-18.0); Immature Granulocyte Absolute 0.05 K/mm3 (0.00-0.031); Immature Granulocyte Percent A 0.4 % (0-0.5); Lymphocytes Absolute Auto 0.95 K/mm3 (0.9-3.2); Lymphocytes Percent Auto 8.2 % (18.3-44.2); Mean Corpuscular HGB Conc 29.9 g/dl (32-36); Mean Corpuscular Hemoglobin 29.8 pg (26-34); Mean Corpuscular Volume 99.6 fl (80-100); Mean Platelet Volume 10.7 fl (7.4-10.4); Monocytes Absolute Auto 0.8 K/mm3 (0.1-0.6); Monocytes Percent Auto 6.8 % (2.6-8.5); Neutrophils Absolute Auto 9.1 K/mm3 (1.3-6.7); Neutrophils Percent Auto 78.9 % (45.5-73.1); Platelet Count Result 144 k/mm3 (150-375); Red Blood Count 2.72 M/mm3 (4.6-6.20); Red Cell Distribution Width 17.7 % (11.5-14.5); White Blood Count 11.6 K/mm3 (4.5-10.0)
[2022-06-19 05:20] LABS: Alveolar/Arterial O2 Gradient 119.6 mmHg; Base Excess ABG 5.4 mEq/l (+/-2.0); Carboxyhemoglobin 0.3 % THb (0-2.0); Fractional Inspired Oxygen 40 %; Methemoglobin ABG 0.4 %THb (0-1.5); Oxygen Content ABG 12.3 %vol (16.0-22.0); Oxygen Saturation ABG 98.9 % (95.0-100.0); Oxyhemoglobin 97.4 % THb (90.0-100.0); PCO2 ABG 33.2 mmHg (35.0-45.0); PO2 ABG 127.4 mmHg (80.0-100.0); PO2 FiO2 Ratio Arterial Blood 3.18 %; Reduced Hemoglobin 1.9 %THb (0-5.0); Total Hemoglobin 8.8 g/dL (12.0-18.0)
[2022-06-19 05:25] LABS: Device VENTILATOR; Modified Allen's Test Pass; Site Drawn RIGHT RADIAL
[2022-06-19 05:26] LABS: Arterial Blood Gas PEEP 8 cmH2O; Arterial Blood Gas Vent Mode ASV
[2022-06-19] MEDS: CENTRAL LINE FLUSH 10 ML IV PUSH ×4 (06:41→19:54)
[2022-06-19 07:16] LABS: Alanine Aminotransferase 12 U/L (6-50); Albumin Level 2.6 g/dL (3.5-5.1); Alkaline Phosphatase 113 U/L (38-126); Anion Gap 8 mmol/L (8-16); Aspartate Amino Transferase 26 U/L (17-59); Bilirubin,Total 0.5 mg/dL (0.2-1.3); Blood Urea Nitrogen 51 mg/dL (9-20); Carbon Dioxide 31 mmol/L (22-30); Chloride 95 mmol/L (98-107); Estimated CRCL calculation 12 ml/min; Estimated Glomerular Filt Rate 13; Glucose 118 mg/dL (65-110); Magnesium 1.8 mg/dL (1.6-2.3); Phosphorus 3.4 mg/dL (2.5-4.5); Potassium 3.2 mmol/L (3.4-5.0); Sodium 134 mmol/L (137-145)
[2022-06-19] MEDS: DORNASE ALFA INH SOLN 1 MG/ML 2.5 ML AMP 2.5 MG INHALATION ×2 (08:05→20:30)
[2022-06-19] MEDS: LEVOTHYROXINE SODIUM 50 MCG TABLET PO (08:21)
[2022-06-19] MEDS: OPTI-GEN TAB 1 TABLET PO ×2 (08:21→19:54)
[2022-06-19] MEDS: MINERAL OIL/WHITE PETROLATUM OINTMENT 1 APPLIC EACH EYE ×2 (08:22→19:54)
[2022-06-19] MEDS: PANTOPRAZOLE SODIUM IV 40 MG VIAL IV PUSH ×2 (08:22→19:53)
[2022-06-19] MEDS: ATORVASTATIN 40 MG TABLET 80 MG PO (08:22)
[2022-06-19] MEDS: metroNIDAZOLE 500 MG/ISO 100ML 500 MG/100 ML BAG 100 MG IVPB (08:30)
[2022-06-19] MEDS: EPOETIN ALFA-EPBX 10,000 UNITS/ML VIAL 10000 UNITS IV PUSH (11:28)
--- NOTE | 2022-06-19 11:29 | WPDINTPN ---
Progress Note: A&P Assessment and Plan (1) Cardiac arrest: Code(s): I46.9 - Cardiac arrest, cause unspecified Status: Acute Assessment and Plan: Exact etiology not clear but patient has significant coronary artery disease and cardiomyopathy, he received propofol for sedation which itself can cause bradycardia, hypoventilation from sedation during the procedure is another possibility which could have led to respiratory acidosis, respiratory failure, bradycardia and PEA arrest -Worsening anemia could be another contributing factor as his hemoglobin is 6.9 -Aspiration is also possibility although patient was NPO prior to the procedure because of his GI bleed and for EGD 06/17/2022: Patient in the brief cardiac arrest with 1 round of CPR with ROSC, No medications were given. Likely secondary to rescue cath suction and possibly vasovagal as he bradycardic and then lost his pulse. 06/18/2022: ETT data cuff leak any coughed and tube out and had to be reintubated, intubation was uneventful, patient was placed on Precedex infusion. -stop Precedex infusion this morning, patient is sedated and lower opening his eyes or following commands -off antibiotics -patient has been requiring Levophed on for dialysis -appreciate cardiology following the patient -06/12/2022: Cardiac echocardiogram: LV systolic function is severely reduced with EF of 25-30%, grade 3 diastolic dysfunction, RV systolic function is moderately reduced, mild mitral valve regurg, mild tricuspid valve regurg, moderate pulmonary hypertension with RVSP of 49 mmHg. (2) Acute respiratory failure: Code(s): J96.00 - Acute respiratory failure, unspecified whether with hypoxia or hypercapnia Status: Acute Assessment and Plan: Respiratory failure likely related to cardiac arrest -intubated 06/12/2022 Chest x-ray 06/18: Increased pulmonary infiltrates especially on the left since 06/17/2022, which may be due to pulmonary edema and/or pneumonia? Patient currently on ASV mode of ventilation, peep of 5 and 40% FiO2. -try to place patient on pressure support 25/03 that he went into apnea ventilation. Have discontinued the Precedex infusion we will retry stated that today place him on pressure support Patient has been tolerating pressure support daily but is too drowsy for extubation Continue to hold all sedation Continue hemodialysis to remove fluid Status post Levaquin, Flagyl x7 days for possible aspiration pneumonia (3) End-stage renal disease on hemodialysis: Code(s): N18.6 - End stage renal disease; Z99.2 - Dependence on renal dialysis Status: Acute Assessment and Plan: Patient has a history of end-stage renal disease and started on hemodialysis in April 2022 -appreciate nephrology following the patient, -06/16 most recent dialysis -dialysis per Nephrology (4) GI bleed: Code(s): K92.2 - Gastrointestinal hemorrhage, unspecified Status: Acute Assessment and Plan: 06/12 EGD showed small ulcer which was not bleeding and gastritis, hiatal hernia PPI IV q.12 hours 06/12 Hemoglobin was 6.9, transfuse1 unit of PRBC Monitor hemoglobin and transfuse additional units as needed (5) DVT (deep venous thrombosis): Code(s): I82.409 - Acute embolism and thrombosis of unspecified deep veins of unspecified lower extremity Status: Acute Assessment and Plan: 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 Anticoagulation held due to GI bleed 06/12 venous Doppler of right lower extremity does not show any DVT at this time (6) Diabetes: Code(s): E11.9 - Type 2 diabetes mellitus without complications Status: Chronic Assessment and Plan: Continue sliding scale insulin Accu-Cheks Hold Lantus (7) Acute on chronic combined systolic and diastolic CHF (congestive heart failure): Code(s): I50.43 - Acute on chronic combined systolic (congestive) and diastolic (congestive) heart failure Status: Acut
--- NOTE | 2022-06-19 11:38 | PCFNICU ---
ICU Rounding Note: Pt current nutrition is Nepro at 40 ml/hr over 22 hours. Last recorded weight is 79.8 kg, down from 80.2 kg Bowel Motility:+Bm reported 06/18 Labs Reviewed:Glu 118, BUN 51, GFR 13, Cr 4.5, Hct 27.1, Hgb 8.1, Na 134 Meds Noted:Protonix, Lipitor, Levaquin, Synthroid. Skin: WNL Additional Notes: Patient remains on mechanical vent and tube feedings of Nepro at 40 ml/hr and tolerating. Free water flush 30 ml q 4 hours. Patient getting dialysis today. Agree with diet order. Following daily in ICU rounds. Will monitor every Sunday and Sunday.
--- NOTE | 2022-06-19 12:24 | P.PNNP_ITS ---
Progress Note: A&P Assessment and Plan (1) End stage renal disease: Code(s): N18.6 - End stage renal disease Status: Chronic Assessment and Plan: * HD today and continue M// schedule * monitor electrolytes, clearance, and volume status (2) Cardiac arrest: Code(s): I46.9 - Cardiac arrest, cause unspecified Status: Acute Assessment and Plan: * exact etiology not clear * suspicion falls on use of propofol for procedure * however, other factors could be responsible including worsening anemia, aspiration, respiratory acidosis...etc * Cardiology recommendations noted * still requiring levophed for dialysis and fluid removal * most recent Echo noted (3) Acute respiratory failure: Code(s): J96.00 - Acute respiratory failure, unspecified whether with hypoxia or hypercapnia Status: Acute Assessment and Plan: * secondary to cardiac arrest * continue fluid removal with dialysis to optimize volume status * ventilator weaning as tolerated (4) GI bleed: Code(s): K92.2 - Gastrointestinal hemorrhage, unspecified Status: Acute Assessment and Plan: * s/p EGD (on 06/12/22) with small ulcer which was not bleeding, gastritis and hiatal hernia * PRBC transfusion per protocol * Epogen with HD * follow trend of H/H (5) Hypotension: Code(s): I95.9 - Hypotension, unspecified Status: Acute Assessment and Plan: * has a chronic component of hypotension at baseline (presumably secondary to his cardiomyopathy) * blood/urine/sputum cultures negative to date * requiring levophed during dialysis only * follow trend of hemodynamics (6) Acute on chronic combined systolic and diastolic CHF (congestive heart failure): Code(s): I50.43 - Acute on chronic combined systolic (congestive) and diastolic (congestive) heart failure Status: Acute Assessment and Plan: * push fluid removal with dialysis * limiting factor is his hemocynamics * recent Echo noted (7) Diabetes: Code(s): E11.9 - Type 2 diabetes mellitus without complications Status: Chronic Assessment and Plan: * follow accuchecks * on SSI Will continue to follow. Subjective Date/time seen: 06/19/22 12:24 Chart reviewed - assuming care from Dr. Christian; tolerating hemodialysis treatment at the time of my visit (seen on HD at ~ 12:15PM); remains intubated and on mechanical ventilation; had to be re-intubated overnight due to dislodgement of ETT; on low dose levophed mainly for dialysis and need for fluid removal; no other issues/events overnight or earlier this AM. Exam Narrative: General: WD/WN male in NAD; intubated Heart: normal S1 and S2; no rub Lungs: coarse breath sounds throughout Abdomen: soft, nontender, nondistended, positive bowel sounds Extremities: no cyanosis or clubbing; 1+ edema Skin: warm and dry Objective Data Vital Signs Vital Signs: Vital Signs Temp Pulse Resp BP Pulse Ox O2 Del Method FiO2 06/19/22 12:00 81 06/19/22 11:52 36.6 C 83 20 115/76 97 06/19/22 11:25 76 23 H 93 Mechanical Ventilation 40 06/19/22 11:23 40 06/19/22 11:00 71 122/61 06/19/22 10:30 77 110/49 L 06/19/22 10:00 69 105/60 06/19/22 10:51 78 98 Mechanical Ventilation 40 06/19/22 12:00 80
--- NOTE | 2022-06-19 12:24 | PM.PNNEP ---
Progress Note: A&P Assessment and Plan (1) End stage renal disease: Code(s): N18.6 - End stage renal disease Status: Chronic Assessment and Plan: HD today and continue M/W/F schedule monitor electrolytes, clearance, and volume status (2) Cardiac arrest: Code(s): I46.9 - Cardiac arrest, cause unspecified Status: Acute Assessment and Plan: exact etiology not clear suspicion falls on use of propofol for procedure however, other factors could be responsible including worsening anemia, aspiration, respiratory acidosis...etc Cardiology recommendations noted still requiring levophed for dialysis and fluid removal most recent Echo noted (3) Acute respiratory failure: Code(s): J96.00 - Acute respiratory failure, unspecified whether with hypoxia or hypercapnia Status: Acute Assessment and Plan: secondary to cardiac arrest continue fluid removal with dialysis to optimize volume status ventilator weaning as tolerated (4) GI bleed: Code(s): K92.2 - Gastrointestinal hemorrhage, unspecified Status: Acute Assessment and Plan: s/p EGD (on 06/12/22) with small ulcer which was not bleeding, gastritis and hiatal hernia PRBC transfusion per protocol Epogen with HD follow trend of H/H (5) Hypotension: Code(s): I95.9 - Hypotension, unspecified Status: Acute Assessment and Plan: has a chronic component of hypotension at baseline (presumably secondary to his cardiomyopathy) blood/urine/sputum cultures negative to date requiring levophed during dialysis only follow trend of hemodynamics (6) Acute on chronic combined systolic and diastolic CHF (congestive heart failure): Code(s): I50.43 - Acute on chronic combined systolic (congestive) and diastolic (congestive) heart failure Status: Acute Assessment and Plan: push fluid removal with dialysis limiting factor is his hemocynamics recent Echo noted (7) Diabetes: Code(s): E11.9 - Type 2 diabetes mellitus without complications Status: Chronic Assessment and Plan: follow accuchecks on SSI Will continue to follow. Subjective Date/time seen: 06/19/22 12:24 Chart reviewed - assuming care from Dr. Christian; tolerating hemodialysis treatment at the time of my visit (seen on HD at ~ 12:15PM); remains intubated and on mechanical ventilation; had to be re-intubated overnight due to dislodgement of ETT; on low dose levophed mainly for dialysis and need for fluid removal; no other issues/events overnight or earlier this AM. Exam Narrative: General: WD/WN male in NAD; intubated Heart: normal S1 and S2; no rub Lungs: coarse breath sounds throughout Abdomen: soft, nontender, nondistended, positive bowel sounds Extremities: no cyanosis or clubbing; 1+ edema Skin: warm and dry Objective Data Vital Signs Vital Signs: Vital Signs Temp Pulse Resp BP Pulse Ox O2 Del Method FiO2 06/19/22 12:00 81 06/19/22 11:52 36.6 C 83 20 115/76 97 06/19/22 11:25 76 23 H 93 Mechanical Ventilation 40 06/19/22 11:23 40 06/19/22 11:00 71 122/61 06/19/22 10:30 77 110/49 L 06/19/22 10:00 69 105/60 06/19/22 10:51 78 98 Mechanical Ventilation 40 06/19/22 12:00 80 110/66 06/19/22 09:30 40 06/19/22 11:32 76 119/55 L 06/19/22 09:40 69 115/51 L 06/19/22 09:30 36.5 C 71 20 126/55 L 06/19/22 10:00 36.5 C 75 19 101/61 100 06/19/22 10:00 79 06/19/22 08:00 65 06/19/22 08:35 64 15 06/19/22 08:00 40 06/19/22 08:00 69 15 100 Mechanical Ventilation 40 06/19/22 08:23 67 17 06/19/22 08:20 69 100 Mechanical Ventilation 40 06/19/22 08:06 64 15 06/19/22 07:23 36.5 C 65 15 110/47 L 99 06/19/22 06:00 36.7 C 65 14 119/62 96 06/19/22 06:00 65 06/19/22 04:00 36.8 C 66
[2022-06-19 14:41] LABS: Glucose Point of Care 113 mg/dl (65-105)
[2022-06-19 17:33] LABS: Glucose Point of Care 116 mg/dl (65-105)
[2022-06-19] MEDS: CHOLECALCIFEROL 1,000 UNITS TABLET 5000 UNITS PO (19:54)
[2022-06-19 23:47] LABS: Glucose Point of Care 154 mg/dl (65-105)
[2022-06-19] MEDS: ACETAMINOPHEN 325 MG TABLET 650 MG PO (23:51)
[2022-06-20] VITALS (26 sets, daily range): BP systolic 113–132; BP diastolic 46–86; PULSE 84–102; RESP 14–27; TEMP 37.2–37.8; O2SAT 94–100
[2022-06-20] MEDS: CENTRAL LINE FLUSH 10 ML IV PUSH ×6 (04:45→22:00)
[2022-06-20 04:54] LABS: Basophils Absolute Auto 0.1 K/mm3 (0.0-0.1); Basophils Percent Auto 0.4 % (0.2-1.2); Eosinophils Absolute Auto 0.3 K/mm3 (0-0.3); Eosinophils Percent Auto 1.6 % (0-4.4); Hematocrit 30.1 % (42.0-52.0); Hemoglobin 8.8 g/dL (14.0-18.0); Immature Granulocyte Absolute 0.09 K/mm3 (0.00-0.031); Immature Granulocyte Percent A 0.5 % (0-0.5); Lymphocytes Absolute Auto 0.74 K/mm3 (0.9-3.2); Mean Corpuscular HGB Conc 29.2 g/dl (32-36); Mean Corpuscular Hemoglobin 29.8 pg (26-34); Monocytes Absolute Auto 1.8 K/mm3 (0.1-0.6); Monocytes Percent Auto 9.4 % (2.6-8.5); Neutrophils Absolute Auto 15.8 K/mm3 (1.3-6.7); Neutrophils Percent Auto 84.1 % (45.5-73.1); Platelet Count Result 168 k/mm3 (150-375); Red Blood Count 2.95 M/mm3 (4.6-6.20); Red Cell Distribution Width 17.7 % (11.5-14.5); White Blood Count 18.7 K/mm3 (4.5-10.0)
[2022-06-20 05:08] LABS: Alanine Aminotransferase 11 U/L (6-50); Albumin Level 2.8 g/dL (3.5-5.1); Alkaline Phosphatase 132 U/L (38-126); Anion Gap 6 mmol/L (8-16); Aspartate Amino Transferase 29 U/L (17-59); Bilirubin,Total 0.4 mg/dL (0.2-1.3); Blood Urea Nitrogen 35 mg/dL (9-20); Calcium 8.4 mg/dL (8.4-10.2); Carbon Dioxide 36 mmol/L (22-30); Chloride 92 mmol/L (98-107); Estimated CRCL calculation 16 ml/min; Estimated Glomerular Filt Rate 18; Glucose 149 mg/dL (65-110); Magnesium 1.9 mg/dL (1.6-2.3); Phosphorus 3.3 mg/dL (2.5-4.5); Potassium 3.5 mmol/L (3.4-5.0); Sodium 134 mmol/L (137-145)
[2022-06-20 05:46] LABS: Alveolar/Arterial O2 Gradient 81.4 mmHg; Base Excess ABG 9.9 mEq/l (+/-2.0); Carboxyhemoglobin 0.2 % THb (0-2.0); Device VENTILATOR; Fractional Inspired Oxygen 30 %; HCO3 ABG 34.5 mEq/l (22.0-26.0); Modified Allen's Test Pass; Oxygen Content ABG 11.6 %vol (16.0-22.0); Oxygen Saturation ABG 95.8 % (95.0-100.0); Oxyhemoglobin 94.3 % THb (90.0-100.0); PCO2 ABG 48.1 mmHg (35.0-45.0); PO2 FiO2 Ratio Arterial Blood 2.53 %; Reduced Hemoglobin 5.5 %THb (0-5.0); Site Drawn RIGHT RADIAL; Total Hemoglobin 8.7 g/dL (12.0-18.0); pH ABG 7.474 (7.350-7.450)
[2022-06-20 05:47] LABS: Arterial Blood Gas PEEP 5 cmH2O; Arterial Blood Gas Vent Mode ASV
[2022-06-20] MEDS: DORNASE ALFA INH SOLN 1 MG/ML 2.5 ML AMP 2.5 MG INHALATION ×2 (08:02→20:08)
[2022-06-20] MEDS: OPTI-GEN TAB 1 TABLET PO ×2 (08:03→20:46)
[2022-06-20] MEDS: PANTOPRAZOLE SODIUM IV 40 MG VIAL IV PUSH ×2 (08:03→20:46)
[2022-06-20] MEDS: ATORVASTATIN 40 MG TABLET 80 MG PO (08:03)
[2022-06-20] MEDS: MINERAL OIL/WHITE PETROLATUM OINTMENT 1 APPLIC EACH EYE ×2 (08:03→20:47)
[2022-06-20] MEDS: LEVOTHYROXINE SODIUM 50 MCG TABLET PO (08:03)
--- NOTE | 2022-06-20 10:05 | P.PNNP_ITS ---
Progress Note: A&P Assessment and Plan (1) End stage renal disease: Code(s): N18.6 - End stage renal disease Status: Chronic Assessment and Plan: * HD tomorrow and continue M/W/ schedule * monitor electrolytes, clearance, and volume status (2) Cardiac arrest: Code(s): I46.9 - Cardiac arrest, cause unspecified Status: Acute Assessment and Plan: * exact etiology not clear * suspicion falls on use of propofol for procedure * however, other factors could be responsible including worsening anemia, aspiration, respiratory acidosis...etc * Cardiology recommendations noted * still requiring levophed for dialysis and fluid removal * most recent Echo noted (3) Acute respiratory failure: Code(s): J96.00 - Acute respiratory failure, unspecified whether with hypoxia or hypercapnia Status: Acute Assessment and Plan: * secondary to cardiac arrest * continue fluid removal with dialysis to optimize volume status * ventilator weaning as tolerated (4) GI bleed: Code(s): K92.2 - Gastrointestinal hemorrhage, unspecified Status: Acute Assessment and Plan: * s/p EGD (on 06/12/22) with small ulcer which was not bleeding, gastritis and hiatal hernia * PRBC transfusion per protocol * Epogen with HD * follow trend of H/H (5) Hypotension: Code(s): I95.9 - Hypotension, unspecified Status: Acute Assessment and Plan: * has a chronic component of hypotension at baseline (presumably secondary to his cardiomyopathy) * blood/urine/sputum cultures negative to date * requiring levophed during dialysis only * follow trend of hemodynamics (6) Acute on chronic combined systolic and diastolic CHF (congestive heart fail ure): Code(s): I50.43 - Acute on chronic combined systolic (congestive) and diastolic (congestive) heart failure Status: Acute Assessment and Plan: * push fluid removal with dialysis * limiting factor is his hemocynamics * recent Echo noted (7) Diabetes: Code(s): E11.9 - Type 2 diabetes mellitus without complications Status: Chronic Assessment and Plan: * follow accuchecks * on SSI Will continue to follow. Subjective Date/time seen: 06/20/22 10:05 Tolerated hemodialysis treatment yesterday with ~ 4.5L fluid removal although di d require use of levophed with dialysis treatment to achieve this amount in ultrafiltration; no acute distress noted but remains on ventilator support; no issues/events overnight or earlier this AM. Exam Narrative: General: WD/WN male in NAD; intubated Heart: normal S1 and S2; no rub Lungs: coarse breath sounds throughout Abdomen: soft, nontender, nondistended, positive bowel sounds Extremities: no cyanosis or clubbing; 1+ edema Skin: warm and intact Objective Data Vital Signs Vital Signs: Vital Signs Temp Pulse Resp BP Pulse Ox O2 Del Method FiO2 06/20/22 08:00 30 06/20/22 08:00 101 H 06/20/22 08:00 101 H 19 94 Mechanical Ventilation 06/20/22 08:20 93 96 Mechanical Ventilation 06/20/22 08:18 96 18 06/20/22 08:02 94 20 06/20/22 07:32 37.6 C H 97 27 H 121/58 L 96 06/20/22 05:30 95 99 Mechanical Ventilation 06/20/22 06:00 37.5 C 96 22 H 119/52 L 96 06/20/22 06:00 96
--- NOTE | 2022-06-20 10:05 | PM.PNNEP ---
Progress Note: A&P Assessment and Plan (1) End stage renal disease: Code(s): N18.6 - End stage renal disease Status: Chronic Assessment and Plan: HD tomorrow and continue M/W/F schedule monitor electrolytes, clearance, and volume status (2) Cardiac arrest: Code(s): I46.9 - Cardiac arrest, cause unspecified Status: Acute Assessment and Plan: exact etiology not clear suspicion falls on use of propofol for procedure however, other factors could be responsible including worsening anemia, aspiration, respiratory acidosis...etc Cardiology recommendations noted still requiring levophed for dialysis and fluid removal most recent Echo noted (3) Acute respiratory failure: Code(s): J96.00 - Acute respiratory failure, unspecified whether with hypoxia or hypercapnia Status: Acute Assessment and Plan: secondary to cardiac arrest continue fluid removal with dialysis to optimize volume status ventilator weaning as tolerated (4) GI bleed: Code(s): K92.2 - Gastrointestinal hemorrhage, unspecified Status: Acute Assessment and Plan: s/p EGD (on 06/12/22) with small ulcer which was not bleeding, gastritis and hiatal hernia PRBC transfusion per protocol Epogen with HD follow trend of H/H (5) Hypotension: Code(s): I95.9 - Hypotension, unspecified Status: Acute Assessment and Plan: has a chronic component of hypotension at baseline (presumably secondary to his cardiomyopathy) blood/urine/sputum cultures negative to date requiring levophed during dialysis only follow trend of hemodynamics (6) Acute on chronic combined systolic and diastolic CHF (congestive heart failure): Code(s): I50.43 - Acute on chronic combined systolic (congestive) and diastolic (congestive) heart failure Status: Acute Assessment and Plan: push fluid removal with dialysis limiting factor is his hemocynamics recent Echo noted (7) Diabetes: Code(s): E11.9 - Type 2 diabetes mellitus without complications Status: Chronic Assessment and Plan: follow accuchecks on SSI Will continue to follow. Subjective Date/time seen: 06/20/22 10:05 Tolerated hemodialysis treatment yesterday with ~ 4.5L fluid removal although did require use of levophed with dialysis treatment to achieve this amount in ultrafiltration; no acute distress noted but remains on ventilator support; no issues/events overnight or earlier this AM. Exam Narrative: General: WD/WN male in NAD; intubated Heart: normal S1 and S2; no rub Lungs: coarse breath sounds throughout Abdomen: soft, nontender, nondistended, positive bowel sounds Extremities: no cyanosis or clubbing; 1+ edema Skin: warm and intact Objective Data Vital Signs Vital Signs: Vital Signs Temp Pulse Resp BP Pulse Ox O2 Del Method FiO2 06/20/22 08:00 30 06/20/22 08:00 101 H 06/20/22 08:00 101 H 19 94 Mechanical Ventilation 30 06/20/22 08:20 93 96 Mechanical Ventilation 30 06/20/22 08:18 96 18 06/20/22 08:02 94 20 06/20/22 07:32 37.6 C H 97 27 H 121/58 L 96 06/20/22 05:30 95 99 Mechanical Ventilation 30 06/20/22 06:00 37.5 C 96 22 H 119/52 L 96 06/20/22 06:00 96 06/19/22 23:40 97 30 06/20/22 02:15 100 98 Mechanical Ventilation 30 06/19/22 20:55 98 35 06/19/22 23:15 101 H 97 Mechanical Ventilation 35 06/20/22 04:00 96 06/20/22 04:00 37.3 C 94 19 121/62 96 06/20/22 03:09 92 19 97 Mechanical Ventilation 30 06/20/22 03:08 30 06/20/22 02:00 37.4 C 96 17 121/54 L 95 06/20/22 02:00 95 06/20/22 00:51 37.8 C H 06/20/22 01:39 30 06/20/22 00:00 102 H 06/20/22 00:00 37.8 C H 97 24 H 114/61 96 06/19/22 23:51 37.9 C H 06/19/22 23:23 35 06/19/22 23:19 99 15 97 [facility]
[2022-06-20 11:08] LABS: Glucose Point of Care 158 mg/dl (65-105)
--- NOTE | 2022-06-20 11:27 | PCNFU ---
Nutrition Follow-Up Complete: Inadequate oral intake as related to mechanical ventilation as evidenced by tube feeding orders. Goal: Meet estimated nutritional needs Patient is meeting current goal. We will continue current goal. Pt current nutrition is Nepro at 40 ml/hr. Last recorded weight is 80.2 kg, stable Bowel Motility:+BM reported 06/20 Labs Reviewed:Glu 149, GFR 18, BUN 35, Cr 3.4,Hct 30.1,Hgb 8.8 Meds Noted:Lipitor, Vancomycin, Levaquin, Protonix, Synthroid Skin: WNL Additional Notes: Patient remains on mechanical vent and tube feedings of Nepro at 40 ml/hr and tolerating per nursing. Current tube feedings is providing 1584 kcals/72 gms protein. Free water flush 30 ml q 4 hours. Meeting 100% kcal needs and 94% protein needs. Agree with diet orders. Will monitor in ICU rounds and reassessing every Sunday and Sunday.
--- NOTE | 2022-06-20 12:23 | WPDINTPN ---
Progress Note: A&P Assessment and Plan (1) Cardiac arrest: Code(s): I46.9 - Cardiac arrest, cause unspecified Status: Acute Assessment and Plan: Exact etiology not clear but patient has significant coronary artery disease and cardiomyopathy, he received propofol for sedation which itself can cause bradycardia, hypoventilation from sedation during the procedure is another possibility which could have led to respiratory acidosis, respiratory failure, bradycardia and PEA arrest -Worsening anemia could be another contributing factor as his hemoglobin is 6.9 -Aspiration is also possibility although patient was NPO prior to the procedure because of his GI bleed and for EGD 06/17/2022: Patient in the brief cardiac arrest with 1 round of CPR with ROSC, No medications were given. Likely secondary to rescue cath suction and possibly vasovagal as he bradycardic and then lost his pulse. 06/18/2022: ETT data cuff leak any coughed and tube out and had to be reintubated, intubation was uneventful, patient was placed on Precedex infusion. -Precedex has been discontinued since 06/19/2022 -patient has been requiring Levophed on for dialysis -appreciate cardiology following the patient -06/12/2022: Cardiac echocardiogram: LV systolic function is severely reduced with EF of 25-30%, grade 3 diastolic dysfunction, RV systolic function is moderately reduced, mild mitral valve regurg, mild tricuspid valve regurg, moderate pulmonary hypertension with RVSP of 49 mmHg. (2) Acute respiratory failure: Code(s): J96.00 - Acute respiratory failure, unspecified whether with hypoxia or hypercapnia Status: Acute Assessment and Plan: Respiratory failure likely related to cardiac arrest -intubated 06/12/2022 Chest x-ray 06/20: Mild pulmonary edema, stable small left pleural effusion, improved airspace opacities in the lower lung zones, left worse than right, consistent with atelectasis versus pneumonia, cardiomegaly. Patient currently on ASV mode of ventilation, peep of 5 and 40% FiO2. -06/19/2020 patient did not tolerate pressure support 14/5. I had to be placed back on ASV mode, Precedex was discontinued -06/20: Thick ETT secretions, febrile, elevated WBC count, worsening chest x-ray -started patient on cefepime renally dosed and vancomycin (06/20) -will check CT noncontrast to evaluate for pulmonary architecture Remains drowsy and sleepy Continue to hold all sedation Continue hemodialysis to remove fluid Status post Levaquin, Flagyl x7 days for possible aspiration pneumonia (3) End-stage renal disease on hemodialysis: Code(s): N18.6 - End stage renal disease; Z99.2 - Dependence on renal dialysis Status: Acute Assessment and Plan: Patient has a history of end-stage renal disease and started on hemodialysis in April 2022 -appreciate nephrology following the patient, -patient does require Levophed briefly with dialysis -dialysis per Nephrology (4) GI bleed: Code(s): K92.2 - Gastrointestinal hemorrhage, unspecified Status: Acute Assessment and Plan: 06/12 EGD showed small ulcer which was not bleeding and gastritis, hiatal hernia PPI IV q.12 hours 06/12 Hemoglobin was 6.9, transfuse1 unit of PRBC Monitor hemoglobin and transfuse additional units as needed (5) DVT (deep venous thrombosis): Code(s): I82.409 - Acute embolism and thrombosis of unspecified deep veins of unspecified lower extremity Status: Acute Assessment and Plan: 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 Anticoagulation held due to GI bleed 06/12 venous Doppler of right lower extremity does not show any DVT at this time (6) Diabetes: Code(s): E11.9 - Type 2 diabetes mellitus without complications Status: Chronic Assessment and Plan: Continue sliding scale insulin Accu-Cheks Hold Lantus (7) Acute on chronic combined systolic and diastolic CHF (congestive heart failure): Code(s):
--- NOTE | 2022-06-20 12:41 | PM.IMPN ---
Progress Note: A&P Assessment and Plan (1) Cardiac arrest: Code(s): I46.9 - Cardiac arrest, cause unspecified Status: Acute Assessment and Plan: Unsure of etiology, appreciate Cardiology and Critical Care consultations (2) Acute respiratory failure: Code(s): J96.00 - Acute respiratory failure, unspecified whether with hypoxia or hypercapnia Status: Acute Assessment and Plan: Aspiration pneumonia was suspected, completed a 7 day course of Levaquin and Flagyl (3) End-stage renal disease on hemodialysis: Code(s): N18.6 - End stage renal disease; Z99.2 - Dependence on renal dialysis Status: Acute Assessment and Plan: Appreciate nephrology consultation for dialysis management (4) GI bleed: Code(s): K92.2 - Gastrointestinal hemorrhage, unspecified Status: Acute Assessment and Plan: Gastritis, small ulcer noted on EGD, monitor hemoglobin, transfuse as needed (5) DVT (deep venous thrombosis): Code(s): I82.409 - Acute embolism and thrombosis of unspecified deep veins of unspecified lower extremity Status: Acute Assessment and Plan: Currently holding Eliquis due to GI bleed (6) Diabetes: Code(s): E11.9 - Type 2 diabetes mellitus without complications Status: Chronic Assessment and Plan: Continue sliding scale insulin Accu-Cheks Hold Lantus (7) Acute on chronic combined systolic and diastolic CHF (congestive heart failure): Code(s): I50.43 - Acute on chronic combined systolic (congestive) and diastolic (congestive) heart failure Status: Acute Assessment and Plan: Appreciate cardiology consultation, fluid management essentially being managed by Nephrology (8) Hypotension: Code(s): I95.9 - Hypotension, unspecified Status: Acute Assessment and Plan: Currently off Levophed, monitor (9) Encephalopathy: Code(s): G93.40 - Encephalopathy, unspecified Status: Acute Assessment and Plan: Patient is currently unresponsive. He did receive propofol for the procedure. His Code was pretty brief as he only received 1 round of CPR and 1 dose of epinephrine hence it is unlikely the patient has developed anoxic injury. 06/13 according the night nurse, the nephew stated that the patient had received propofol for his last procedure and did not wake up for 7 days, this information that was given by the nephew (10) Ileus: Code(s): K56.7 - Ileus, unspecified Status: Acute Assessment and Plan: Resolved Additional Plan DVT prophylaxis -SCDs, no chemoprophylaxis due to GI bleed, anemia Stress ulcer prophylaxis -PPI Nutrition-tube feeds at 20 mL/hr, tolerating okay, not at goal Code Status - Full Code Subjective Date/time seen: 06/20/22 12:42 Interval history: Reason for consult: Cardiac arrest, acute respiratory failure, GI bleed, hypotension 76-year-old gentleman with ischemic cardiomyopathy with EF of 25-30% end-stage renal disease on dialysis, coronary artery disease status post CABG and redo CABG, peripheral vascular disease, chronic systolic and diastolic heart failure, diabetes, obstructive sleep apnea underwent an EGD on 06/12/2021, patient received propofol for sedation, procedure he became bradycardic, was given epinephrine, ephedrine and atropine and transcutaneous pacing was done. He went into PEA arrest and required 1 round of CPR and 1 dose of epinephrine before ROSC. Patient was intubated by Anesthesia and transferred to the ICU, he was hypotensive and a central line was inserted. Patient was rewarmed body temperature at around 9:00 p.m. on 06/13/2022 -06/17/2022 patient had cardiac arrest, received 1 round of CPR with did not receive any medications. Likely vasovagal secondary to to rescue cath suctioning. -06/18/2022: Patient's ETT had a cuff leak and patient coughed it out and had to be reintubated started on Precedex infusion. 06/20/2022
[2022-06-20] MEDS: LIDOCAINE HCL 1% LOCAL INJ 2 ML AMPUL 5 ML INFILTRATE (14:15)
--- NOTE | 2022-06-20 14:43 | PM.PNCARD ---
Progress Note: A&P Assessment and Plan (1) Chronic combined systolic and diastolic heart failure: Code(s): I50.42 - Chronic combined systolic (congestive) and diastolic (congestive) heart failure Status: Chronic Assessment and Plan: Chronic CHF, improved since starting dialysis. HF meds on hold currently due to hypotension. Back on pressor support currently. No specific cardiac recommendations to make at this time. (2) GI bleed: Code(s): K92.2 - Gastrointestinal hemorrhage, unspecified Status: Acute Assessment and Plan: Patient presents with 1 episode of melena while taking Eliquis 5 mg b.i.d. for below the knee DVT, as well as aspirin plus Plavix for his saphenous vein graft patency. H&H improved Endoscopy showed erosive/ulcerative gastritis but no active bleeding. Recommendation that ASA, plavix could be restarted in 4-5 days. Still on hold currently. Apixaban has been discontinued at this point, repeat LE venous Dopplers did not show any DVT in R lower limb (3) CAD (coronary artery disease): Code(s): I25.10 - Atherosclerotic heart disease of [place] coronary artery without angina pectoris Status: Acute Assessment and Plan: History of CABG and redo CABG. All of coronary circulation goes through a saphenous vein graft to the Left anterior descending, so it is very important to continue some type of anticoagulation or anti-platelet agent. Continue atorvastatin Coreg on hold Stable so far. (4) DVT (deep venous thrombosis): Code(s): I82.409 - Acute embolism and thrombosis of unspecified deep veins of unspecified lower extremity Status: Acute Assessment and Plan: Right peroneal DVT diagnosed 05/20/2022. As above, no DVT on repeat Doppler. Apixaban discontinued. (5) End stage renal disease on dialysis: Code(s): N18.6 - End stage renal disease; Z99.2 - Dependence on renal dialysis Status: Acute Assessment and Plan: End-stage renal disease, started dialysis in April. (6) Cardiac arrest: Code(s): I46.9 - Cardiac arrest, cause unspecified Status: Acute Assessment and Plan: Bradycardia and PEA arrest Etiology unclear. Possibly related to sedation with propofol, hypotension. He does have an ICD in place though, so significant bradycardia should not be possible with back up pacing. Will have ICD interrogated. TTS protocol complete. Remains intubated but not sedated, does make spontaneous movements. Head CT did not show any acute intracranial process. Apparently took a prolonged period of time to wake up after previous administration of propofol. Continue supportive care. Subjective Date/time seen: 06/20/22 14:43 Interval history: No acute events overnight. Remains intubated in the ICU. Review of Systems Review of Systems: ROS unobtainable: Yes unobtainable due to medical condition Constitutional: Constitutional: Denies fever(s) Eyes: Eyes: Reports no additional eye complaints ENT: Denies epistaxis Cardiovascular: Cardiovascular: Denies chest pain, Denies pedal edema, Reports lightheadedness, Denies dyspnea and Reports dyspnea on exertion Respiratory: Respiratory: Denies chest congestion, Denies dyspnea and Reports dyspnea on exertion Gastrointestinal: Gastrointestinal: Denies abdominal pain, Reports melena, Denies hematochezia and Reports heartburn (History of GERD, not a big problem recently.) Musculoskeletal: Musculoskeletal: Denies no additional musculoskeletal complaints Integumentary/Breasts: Skin/Breast: Reports system reviewed and no additional complaints, except as docu Neurologic: Reports system reviewed and no additional complaints, except as documented, Denies behavioral changes and Denies confusion Psychiatric: Psychiatric: Denies behavioral changes and Denies confusion Exam Const:
--- NOTE | 2022-06-20 16:54 | PC.NURSE ---
1649- Rita , Dog , and Niece at bedside retrieved patients cell phone and wallet.
[2022-06-20 18:51] LABS: Glucose Point of Care 135 mg/dl (65-105)
[2022-06-20] MEDS: SENNA/DOCUSATE SODIUM TABLET 1 TAB PO (20:46)
[2022-06-20] MEDS: CHOLECALCIFEROL 1,000 UNITS TABLET 5000 UNITS PO (20:46)
[2022-06-21] VITALS (42 sets, daily range): BP systolic 82–132; BP diastolic 39–90; PULSE 70–121; RESP 14–28; TEMP 36–37.7; O2SAT 92–100
[2022-06-21 00:24] LABS: Glucose Point of Care 148 mg/dl (65-105)
[2022-06-21 05:07] LABS: Basophils Absolute Auto 0.1 K/mm3 (0.0-0.1); Basophils Percent Auto 0.3 % (0.2-1.2); Eosinophils Absolute Auto 0.4 K/mm3 (0-0.3); Eosinophils Percent Auto 1.8 % (0-4.4); Hematocrit 28.1 % (42.0-52.0); Hemoglobin 8.3 g/dL (14.0-18.0); Immature Granulocyte Absolute 0.13 K/mm3 (0.00-0.031); Immature Granulocyte Percent A 0.7 % (0-0.5); Lymphocytes Absolute Auto 0.68 K/mm3 (0.9-3.2); Lymphocytes Percent Auto 3.6 % (18.3-44.2); Mean Corpuscular HGB Conc 29.5 g/dl (32-36); Mean Corpuscular Volume 101.4 fl (80-100); Mean Platelet Volume 10.9 fl (7.4-10.4); Monocytes Absolute Auto 1.7 K/mm3 (0.1-0.6); Monocytes Percent Auto 8.7 % (2.6-8.5); Neutrophils Absolute Auto 16.1 K/mm3 (1.3-6.7); Neutrophils Percent Auto 84.9 % (45.5-73.1); Platelet Count Result 174 k/mm3 (150-375); Red Blood Count 2.77 M/mm3 (4.6-6.20); Red Cell Distribution Width 17.4 % (11.5-14.5)
[2022-06-21] MEDS: CENTRAL LINE FLUSH 10 ML IV PUSH ×8 (05:15→20:38)
[2022-06-21 05:19] LABS: Alanine Aminotransferase 9 U/L (6-50); Albumin Level 2.8 g/dL (3.5-5.1); Alkaline Phosphatase 126 U/L (38-126); Anion Gap 9 mmol/L (8-16); Aspartate Amino Transferase 24 U/L (17-59); Bilirubin,Total 0.5 mg/dL (0.2-1.3); Blood Urea Nitrogen 53 mg/dL (9-20); Calcium 8.7 mg/dL (8.4-10.2); Carbon Dioxide 33 mmol/L (22-30); Chloride 90 mmol/L (98-107); Estimated CRCL calculation 13 ml/min; Estimated Glomerular Filt Rate 14; Glucose 133 mg/dL (65-110); Phosphorus 3.6 mg/dL (2.5-4.5); Potassium 3.6 mmol/L (3.4-5.0); Sodium 132 mmol/L (137-145)
[2022-06-21 05:19] LABS: Alveolar/Arterial O2 Gradient 76.3 mmHg; Base Excess ABG 8.9 mEq/l (+/-2.0); Carboxyhemoglobin 0.3 % THb (0-2.0); Fractional Inspired Oxygen 35 %; HCO3 ABG 33.7 mEq/l (22.0-26.0); Methemoglobin ABG 0.3 %THb (0-1.5); Oxygen Content ABG 13.3 %vol (16.0-22.0); Oxygen Saturation ABG 98.4 % (95.0-100.0); Oxyhemoglobin 97.1 % THb (90.0-100.0); PCO2 ABG 48.4 mmHg (35.0-45.0); PO2 FiO2 Ratio Arterial Blood 3.34 %; Reduced Hemoglobin 2.3 %THb (0-5.0); Total Hemoglobin 9.6 g/dL (12.0-18.0); pH ABG 7.461 (7.350-7.450)
[2022-06-21 05:20] LABS: Arterial Blood Gas PEEP 5 cmH2O; Arterial Blood Gas Tidal Volume 400 ml; Arterial Blood Gas Vent Mode CMV; Arterial Blood Gas Ventilator rate 16 /MIN; Device VENTILATOR; Modified Allen's Test Unable to perform; Site Drawn RIGHT RADIAL
[2022-06-21 05:27] LABS: Hypochromasia 1+ (NORMAL); Ovalocytes 1+ (NORMAL); Platelet Estimate Adequate (Adequate); Schistocytes 1+ (NORMAL)
[2022-06-21] MEDS: DORNASE ALFA INH SOLN 1 MG/ML 2.5 ML AMP 2.5 MG INHALATION ×2 (08:55→20:01)
[2022-06-21] MEDS: OPTI-GEN TAB 1 TABLET PO ×2 (09:21→20:37)
[2022-06-21] MEDS: PANTOPRAZOLE SODIUM IV 40 MG VIAL IV PUSH ×2 (09:21→20:38)
[2022-06-21] MEDS: LEVOTHYROXINE SODIUM 75 MCG TABLET PO (09:21)
[2022-06-21] MEDS: ATORVASTATIN 40 MG TABLET 80 MG PO (09:22)
[2022-06-21] MEDS: MINERAL OIL/WHITE PETROLATUM OINTMENT 1 APPLIC EACH EYE ×2 (09:22→20:37)
--- NOTE | 2022-06-21 09:37 | WPDINTPN ---
Progress Note: A&P Assessment and Plan (1) Cardiac arrest: Code(s): I46.9 - Cardiac arrest, cause unspecified Status: Acute Assessment and Plan: Exact etiology not clear but patient has significant coronary artery disease and cardiomyopathy, he received propofol for sedation which itself can cause bradycardia, hypoventilation from sedation during the procedure is another possibility which could have led to respiratory acidosis, respiratory failure, bradycardia and PEA arrest -Worsening anemia could be another contributing factor as his hemoglobin is 6.9 -Aspiration is also possibility although patient was NPO prior to the procedure because of his GI bleed and for EGD 06/17/2022: Patient in the brief cardiac arrest with 1 round of CPR with ROSC, No medications were given. Likely secondary to rescue cath suction and possibly vasovagal as he bradycardic and then lost his pulse. 06/18/2022: ETT data cuff leak any coughed and tube out and had to be reintubated, intubation was uneventful, patient was placed on Precedex infusion. -Precedex has been discontinued since 06/19/2022 -patient has been requiring Levophed on for dialysis -appreciate cardiology following the patient -patient's pacemaker rate was increased to 60 -06/12/2022: Cardiac echocardiogram: LV systolic function is severely reduced with EF of 25-30%, grade 3 diastolic dysfunction, RV systolic function is moderately reduced, mild mitral valve regurg, mild tricuspid valve regurg, moderate pulmonary hypertension with RVSP of 49 mmHg. (2) Acute respiratory failure: Code(s): J96.00 - Acute respiratory failure, unspecified whether with hypoxia or hypercapnia Status: Acute Assessment and Plan: Respiratory failure likely related to cardiac arrest -intubated 06/12/2022 -weaning has been unsuccessful as patient is too drowsy, gets apneic, has high RSBI on trial -06/20: Thick ETT secretions, febrile, elevated WBC count, worsening chest x-ray -patient was started patient on cefepime renally dosed and vancomycin (06/20) 06/20 CT chest noncontrast 1. Bilateral airspace disease, left greater than right, which may represent edema and/or pneumonia. Left basilar airspace disease has progressed since prior CT examination. 2: Moderate left and small right pleural effusions. 3:? Moderate cardiomegaly. 4:? Ascites. Chest x-ray 8/10 1. Worsened complete opacification of left hemithorax, likely a combination of atelectasis from mucous plugging and pleural effusion. 2. Interstitial pattern in right lung, consistent mild pulmonary edema. 3. Cardiomegaly. Patient is scheduled for hemodialysis to remove some fluid Will consult intervention Radiology for diagnostic and therapeutic thoracentesis Requested nurse to place patient with his right side down Increase PEEP to 8 Remains drowsy and sleepy Continue to hold all sedation Status post Levaquin, Flagyl x7 days for possible aspiration pneumonia. Continue cefepime and vancomycin (started 06/20) (3) End-stage renal disease on hemodialysis: Code(s): N18.6 - End stage renal disease; Z99.2 - Dependence on renal dialysis Status: Acute Assessment and Plan: Patient has a history of end-stage renal disease and started on hemodialysis in April 2022 -patient does require Levophed briefly with dialysis -dialysis per Nephrology which is Sunday at this time (4) GI bleed: Code(s): K92.2 - Gastrointestinal hemorrhage, unspecified Status: Acute Assessment and Plan: 06/12 EGD showed small ulcer which was not bleeding and gastritis, hiatal hernia PPI IV q.12 hours 06/12 Hemoglobin was 6.9, transfuse1 unit of PRBC Monitor hemoglobin and transfuse additional units as needed Anticoagulation on hold (5) DVT (deep venous thrombosis): Code(s): I82.409 - Acute embolism and thrombosis of unspecified deep veins of unspecified lower extremity Status: Acute Assessment and
[2022-06-21] MEDS: modafiniL (*CRX) 200 MG TABLET FEED TUBE (11:00)
--- NOTE | 2022-06-21 11:00 | PM.PNCARD ---
Progress Note: A&P Assessment and Plan (1) Cardiorenal syndrome: Code(s): I13.10 - Hypertensive heart and chronic kidney disease without heart failure, with stage 1 through stage 4 chronic kidney disease, or unspecified chronic kidney disease Status: Acute (2) Ischemic cardiomyopathy: Code(s): I25.5 - Ischemic cardiomyopathy Status: Acute Plan 76-year-old man with: Ischemic cardiomyopathy is dictated in many previous notes essentially end-stage ischemic heart disease at this time. Dialysis started earlier this year because of repeated volume overload /CHF. Picture of cardiorenal syndrome. He now is ventilator dependent in the ICU. Aggressive supportive care continues to be provided to him but at this point there are no other cardiac interventions that are available for Mr. Morrell. Yehuda Richmond MD [facility] Subjective Date/time seen: date of service:06/21/22 11:00 Interval history: No acute events overnight. Remains intubated in the ICU. 06/21/2022: No change clinically. Patient remains intubated is responsive although not to commands. Undergoing hemodialysis at this time. Exam Const: General: cooperative and comfortable; No healthy appearing or confusion Orientation/consciousness: oriented to person, patient oriented x3 and No confusion Other: Intubated chronically ill elderly man is alert and responsive and follows commands HENMT: Mouth: Yes moist mucous membranes Eyes: Sclera: sclerae normal EOM: EOMs intact bilaterally Neck: Neck: supple and no JVD Thyroid: thyroid normal Carotids: no bruits Resp: Effort & Inspection: normal respiratory effort Auscultation: not clear to auscultation bilaterally and rhonchi Other: few scattered rhonchi no wheezing no rales Cardio: Rate: regular rate Rhythm: regular rhythm Heart sounds: no murmurs Other: no audible murmur GI: Inspection: normal to inspection Auscultation: normal bowel sounds Urinary Catheter: Urinary Catheter: patent and draining Skin: General skin exam: normal color and no rashes or lesions noted Neuro: General: oriented to person, patient oriented x3 and No confusion Other: patient is neurologically recovering quite remarkably Extrem: General: normal to inspection Right lower extremity: edema Left lower extremity: edema Other: No significant edema Psych: Appearance: grossly normal Mental Status: mental status grossly abnormal Objective Data Vital Signs Vital Signs: Vital Signs - 24 hr 06/20/22 11:09 06/20/22 12:00 06/20/22 12:00 Temperature Pulse Rate 93 99 Respiratory Rate 24 H Blood Pressure Pulse Oximetry 97 95 Oxygen Delivery Mechanical Ventilation Mechanical Ventilation Fraction of Inspired Oxygen 35 30 30 06/20/22 12:00 06/20/22 12:00 06/20/22 12:48 Temperature 37.4 C Pulse Rate 99 99 98 Respiratory Rate 24 H Blood Pressure 128/86 Pulse Oximetry 95 97 Oxygen Delivery Mechanical Ventilation Fraction of Inspired Oxygen 45 06/20/22 14:00 06/20/22 14:00 06/20/22 16:47 Temperature 37.2 C Pulse Rate 91 87 96 Respiratory Rate 20 Blood Pressure 132/58 L Pulse Oximetry 99 98 Oxygen Delivery Mechanical Ventilation Fraction of Inspired Oxygen 45 06/20/22 16:00 06/20/22 16:00 06/20/22 16:00 Temperature Pulse Rate 89 89 Respiratory Rate 14 Blood Pressure Pulse Oximetry 100 Oxygen Delivery Mechanical Ventilation Fraction of Inspired Oxygen 30 45 06/20/22 16:00 06/20/22 18:00 06/20/22 18:00 Temperature 37.4 C Pulse Rate 89 93 93 Respiratory Rate 14 14 Blood Pressure 116/56 L 116/56 L Pulse Oximetry 100 96 Oxygen Delivery Fraction of Inspired Oxygen 06/20/22 20:08 06/20/22 20:00 06/20/22 20:18 Temperature Pulse Rate 90 85 89 Respiratory Rate 17 16 Blood Pressure Pulse Oximetry 100 Oxygen Delivery Mechanical Ventilation Fraction of Inspired Oxygen 45 06/20/22 2
--- NOTE | 2022-06-21 11:29 | PCFNICU ---
ICU Rounding Note: Pt current nutrition is Nepro at 40 ml/hr over 22 hours. Last recorded weight is 80.2 kg, stable. Bowel Motility:+Bm reported 06/20 Labs Reviewed:Glu 133, Cr 4.10,BUN 53, GFR 14, Na 132, Alb 2.8 Meds Noted:Lipitor, Protonix, Synthroid Skin: WNL Additional Notes: Patient remains on mechanical vent and tube feedings of Nepro at 40 ml/hr. Patient remains on breathing trail yesterday. Thoracentesis planned for today and dialysis. Agree with diet orders. Following daily in ICU rounds. Will monitor every Sunday and Sunday.
[2022-06-21] MEDS: ALBUMIN HUMAN 25% 12.5 GM/50ML 50 ML IVPB (11:33)
[2022-06-21] MEDS: HEPARIN SODIUM 1,000 UNITS/ML VIAL 6000 UNITS (11:34)
[2022-06-21] MEDS: EPOETIN ALFA-EPBX 10,000 UNITS/ML VIAL 10000 UNITS IV PUSH (11:34)
[2022-06-21] MEDS: SODIUM CHLORIDE 0.9% IV 1,000 ML 999 ML (11:35)
[2022-06-21 12:00] LABS: Glucose Point of Care 117 mg/dl (65-105)
--- NOTE | 2022-06-21 12:06 | P.PNNP_ITS ---
Progress Note: A&P Assessment and Plan (1) End stage renal disease: Code(s): N18.6 - End stage renal disease Status: Chronic Assessment and Plan: * HD today and continue M// schedule * monitor electrolytes, clearance, and volume status (2) Cardiac arrest: Code(s): I46.9 - Cardiac arrest, cause unspecified Status: Acute Assessment and Plan: * exact etiology not clear * suspicion falls on use of propofol for procedure * however, other factors could be responsible including worsening anemia, aspiration, respiratory acidosis...etc * Cardiology recommendations noted * still requiring levophed for dialysis and fluid removal * most recent Echo noted (3) Acute respiratory failure: Code(s): J96.00 - Acute respiratory failure, unspecified whether with hypoxia or hypercapnia Status: Acute Assessment and Plan: * secondary to cardiac arrest * continue fluid removal with dialysis to optimize volume status * ventilator weaning as tolerated (4) GI bleed: Code(s): K92.2 - Gastrointestinal hemorrhage, unspecified Status: Acute Assessment and Plan: * s/p EGD (on 06/12/22) with small ulcer which was not bleeding, gastritis and hiatal hernia * PRBC transfusion per protocol * Epogen with HD * follow trend of H/H (5) Hypotension: Code(s): I95.9 - Hypotension, unspecified Status: Acute Assessment and Plan: * has a chronic component of hypotension at baseline (presumably secondary to his cardiomyopathy) * blood/urine/sputum cultures negative to date * requiring levophed during dialysis only * follow trend of hemodynamics (6) Acute on chronic combined systolic and diastolic CHF (congestive heart failure): Code(s): I50.43 - Acute on chronic combined systolic (congestive) and diastolic (congestive) heart failure Status: Acute Assessment and Plan: * push fluid removal with dialysis * limiting factor is his hemocynamics * recent Echo noted (7) Diabetes: Code(s): E11.9 - Type 2 diabetes mellitus without complications Status: Chronic Assessment and Plan: * follow accuchecks * on SSI Will continue to follow. Subjective Date/time seen: 06/21/22 12:06 Tolerating hemodialysis treatment at the time of my visit (seen on HD at ~ 11:50AM); remains intubated and on ventilator support; off all sedation but still appears drowsy; no other acute issues/events overnight or earlier this AM. Exam Narrative: General: WD/WN male in NAD; intubated Heart: normal S1 and S2; no rub Lungs: coarse breath sounds throughout Abdomen: soft, nontender, nondistended, positive bowel sounds Extremities: no cyanosis or clubbing; 1+ edema Skin: warm and intact Objective Data Vital Signs Vital Signs: Vital Signs Temp Pulse Resp BP Pulse Ox O2 Del Method FiO2 06/21/22 11:45 105 H 126/88 06/21/22 11:30 92 105/74 06/21/22 11:22 85 100/59 L 06/21/22 11:15 79 87/39 L 06/21/22 11:00 74 100/85 06/21/22 10:40 36.8 C 76 16 107/43 L 100 06/21/22 10:47 80 111/46 L 06/21/22 11:02 70 100 Mechanical Ventilation 06/21/22 09:00 86 99 Mechanical Ventilation 06/21/22 08:55 89 20 06/21/22 07:51 37.2 C 75 16 118/55 L 100
--- NOTE | 2022-06-21 12:06 | PM.PNNEP ---
Progress Note: A&P Assessment and Plan (1) End stage renal disease: Code(s): N18.6 - End stage renal disease Status: Chronic Assessment and Plan: HD today and continue M/W/F schedule monitor electrolytes, clearance, and volume status (2) Cardiac arrest: Code(s): I46.9 - Cardiac arrest, cause unspecified Status: Acute Assessment and Plan: exact etiology not clear suspicion falls on use of propofol for procedure however, other factors could be responsible including worsening anemia, aspiration, respiratory acidosis...etc Cardiology recommendations noted still requiring levophed for dialysis and fluid removal most recent Echo noted (3) Acute respiratory failure: Code(s): J96.00 - Acute respiratory failure, unspecified whether with hypoxia or hypercapnia Status: Acute Assessment and Plan: secondary to cardiac arrest continue fluid removal with dialysis to optimize volume status ventilator weaning as tolerated (4) GI bleed: Code(s): K92.2 - Gastrointestinal hemorrhage, unspecified Status: Acute Assessment and Plan: s/p EGD (on 06/12/22) with small ulcer which was not bleeding, gastritis and hiatal hernia PRBC transfusion per protocol Epogen with HD follow trend of H/H (5) Hypotension: Code(s): I95.9 - Hypotension, unspecified Status: Acute Assessment and Plan: has a chronic component of hypotension at baseline (presumably secondary to his cardiomyopathy) blood/urine/sputum cultures negative to date requiring levophed during dialysis only follow trend of hemodynamics (6) Acute on chronic combined systolic and diastolic CHF (congestive heart failure): Code(s): I50.43 - Acute on chronic combined systolic (congestive) and diastolic (congestive) heart failure Status: Acute Assessment and Plan: push fluid removal with dialysis limiting factor is his hemocynamics recent Echo noted (7) Diabetes: Code(s): E11.9 - Type 2 diabetes mellitus without complications Status: Chronic Assessment and Plan: follow accuchecks on SSI Will continue to follow. Subjective Date/time seen: 06/21/22 12:06 Tolerating hemodialysis treatment at the time of my visit (seen on HD at ~ 11:50AM); remains intubated and on ventilator support; off all sedation but still appears drowsy; no other acute issues/events overnight or earlier this AM. Exam Narrative: General: WD/WN male in NAD; intubated Heart: normal S1 and S2; no rub Lungs: coarse breath sounds throughout Abdomen: soft, nontender, nondistended, positive bowel sounds Extremities: no cyanosis or clubbing; 1+ edema Skin: warm and intact Objective Data Vital Signs Vital Signs: Vital Signs Temp Pulse Resp BP Pulse Ox O2 Del Method FiO2 06/21/22 11:45 105 H 126/88 06/21/22 11:30 92 105/74 06/21/22 11:22 85 100/59 L 06/21/22 11:15 79 87/39 L 06/21/22 11:00 74 100/85 06/21/22 10:40 36.8 C 76 16 107/43 L 100 06/21/22 10:47 80 111/46 L 06/21/22 11:02 70 100 Mechanical Ventilation 30 06/21/22 09:00 86 99 Mechanical Ventilation 30 06/21/22 08:55 89 20 06/21/22 07:51 37.2 C 75 16 118/55 L 100 06/21/22 05:11 84 98 Mechanical Ventilation 35 06/21/22 04:00 37.6 C 89 19 111/51 L 97 06/21/22 04:00 35 06/21/22 04:00 89 19 97 Mechanical Ventilation 35 06/21/22 04:00 89 06/21/22 02:00 37.7 C H 97 20 109/55 L 99 06/21/22 02:00 97 06/21/22 02:00 91 99 Mechanical Ventilation 35 06/21/22 00:00 37.7 C H 94 18 97/49 L 98 06/21/22 00:00 40 06/21/22 00:00 94 18 98 Mechanical Ventilation 40 06/21/22 00:00 94 06/20/22 23:00 88 100 Mechanical Ventilation 40 06/20/22 22:00 37.6 C 84 16 124/83 100 06/20/22 22:00 84 06/20/22 20:00 37.
--- NOTE | 2022-06-21 16:27 | PM.IMPN ---
Progress Note: A&P Assessment and Plan (1) Cardiac arrest: Code(s): I46.9 - Cardiac arrest, cause unspecified Status: Acute Assessment and Plan: Unsure of etiology, appreciate Cardiology and Critical Care consultations Multifactorial. Medications induced bradycardia/ hypoventilation sedation Possible aspiration Needed 1 round of CPR with ROSC Pacemaker rate increased to 60 Echo 06/12/2022 LV EF 25-30%, grade 3 diastolic dysfunction, RV systolic function moderately reduced, mild mitral valve regurgitation, mild tricuspid valve regurgitation, moderate pulmonary hypertension with RVSP of 49 mm Hg (2) Acute respiratory failure: Code(s): J96.00 - Acute respiratory failure, unspecified whether with hypoxia or hypercapnia Status: Acute Assessment and Plan: Aspiration pneumonia was suspected Likely due to cardiac arrest Intubated 06/12/2022 Weaning unsuccessful Worsening chest x-ray and CT chest 06/20/2022 started on cefepime and vancomycin 06/20. Plan for diagnostic and therapeutic thoracentesis per at basket sorter (3) End-stage renal disease on hemodialysis: Code(s): N18.6 - End stage renal disease; Z99.2 - Dependence on renal dialysis Status: Acute Assessment and Plan: Appreciate nephrology consultation for dialysis management On intermittent hemodialysis Sunday (4) GI bleed: Code(s): K92.2 - Gastrointestinal hemorrhage, unspecified Status: Acute Assessment and Plan: status post EGD 06/12/2022:Gastritis, small ulcer Which was not bleeding, hiatal hernia. On PPI Monitor H&H. (5) DVT (deep venous thrombosis): Code(s): I82.409 - Acute embolism and thrombosis of unspecified deep veins of unspecified lower extremity Status: Acute Assessment and Plan: Patient has a history of DVT was on Eliquis. Currently holding Eliquis due to GI bleed 06/12 venous duplex right lower extremity without any DVT On prophylactic Lovenox for now as GI bleed has been stable (6) Diabetes: Code(s): E11.9 - Type 2 diabetes mellitus without complications Status: Chronic Assessment and Plan: Continue sliding scale insulin Accu-Cheks adjust insulin as needed (7) Acute on chronic combined systolic and diastolic CHF (congestive heart failure): Code(s): I50.43 - Acute on chronic combined systolic (congestive) and diastolic (congestive) heart failure Status: Acute Assessment and Plan: Appreciate cardiology consultation, fluid management essentially being managed by Nephrology (8) Hypotension: Code(s): I95.9 - Hypotension, unspecified Status: Acute Assessment and Plan: On intermittent Levophed during dialysis (9) Encephalopathy: Code(s): G93.40 - Encephalopathy, unspecified Status: Acute Assessment and Plan: previous history of propofol use leading to unresponsiveness reported Neurology consulted Remains to be somnolent and drowsy added Provigil (10) Ileus: Code(s): K56.7 - Ileus, unspecified Status: Acute Assessment and Plan: Resolved Plan DVT prophylaxis Lovenox Code status full code Nutrition to feed Subjective Date/time seen: 06/21/22 16:27 Interval history: 76-year-old gentleman with ischemic cardiomyopathy with EF of 25-30% end-stage renal disease on dialysis, coronary artery disease status post CABG and redo CABG, peripheral vascular disease, chronic systolic and diastolic heart failure, diabetes, obstructive sleep apnea underwent an EGD on 06/12/2021, patient received propofol for sedation, procedure he became bradycardic, was given epinephrine, ephedrine and atropine and transcutaneous pacing was done. He went into PEA arrest and required 1 round of CPR and 1 dose of epinephrine before ROSC. Patient was intubated by Anesthesia and transferred to the ICU, he was hypotensive and a central line was inserted. Patient was rew
[2022-06-21] MEDS: CEFEPIME 0.5 GM in DEXTROSE 5% IN WATER 50 ML IVPB (17:13)
[2022-06-21 17:46] LABS: Appearance Pleural Fluid Hazy (Clear); Color Pleural Fluid Yellow (Colorless); Neutrophils Pleural Fluid 7 % (0-25); Nucleated Cell Pleural Fluid 264 /uL (0-1000); Pleural fluid source Pleural fluid; RBC Pleural Fluid 2184 /uL (0-0)
[2022-06-21 17:47] LABS: Lymphocytes Pleural Fluid 42 %; Macrophages Pleural Fluid 20 %; Monocytes Pleural Fluid 31 %
[2022-06-21] MEDS: SENNA/DOCUSATE SODIUM TABLET 1 TAB PO (20:37)
[2022-06-21] MEDS: CHOLECALCIFEROL 1,000 UNITS TABLET 5000 UNITS PO (20:37)
[2022-06-21 21:14] LABS: Vancomycin Random 8.8 ug/mL (10-20)
[2022-06-21 21:55] LABS: Glucose 145 mg/dL (65-110); Lactate Dehydrogenase 168 U/L (120-246)
[2022-06-21 23:55] LABS: Glucose Point of Care 203 mg/dl (65-105)
[2022-06-21] MEDS: INSULIN ASPART (*BKC) 100 UNITS/ML SUB-Q (23:56)
[2022-06-22] VITALS (22 sets, daily range): BP systolic 85–108; BP diastolic 49–81; PULSE 81–105; RESP 19–30; TEMP 36.6–37.4; O2SAT 91–100
[2022-06-22 05:11] LABS: Alveolar/Arterial O2 Gradient 91.8 mmHg; Base Excess ABG 0.1 mEq/l (+/-2.0); Carboxyhemoglobin 0.3 % THb (0-2.0); Fractional Inspired Oxygen 35 %; HCO3 ABG 25.3 mEq/l (22.0-26.0); Methemoglobin ABG 0.3 %THb (0-1.5); Modified Allen's Test Pass; Oxygen Content ABG 13.8 %vol (16.0-22.0); Oxygen Saturation ABG 97.8 % (95.0-100.0); Oxyhemoglobin 96.8 % THb (90.0-100.0); PCO2 ABG 43.3 mmHg (35.0-45.0); PO2 ABG 107.4 mmHg (80.0-100.0); PO2 FiO2 Ratio Arterial Blood 3.07 %; Reduced Hemoglobin 2.6 %THb (0-5.0); Site Drawn RIGHT RADIAL; pH ABG 7.384 (7.350-7.450)
[2022-06-22 05:12] LABS: Arterial Blood Gas PEEP 8 cmH2O; Arterial Blood Gas Tidal Volume 400 ml; Arterial Blood Gas Vent Mode CMV; Arterial Blood Gas Ventilator rate 16 /MIN; Device VENTILATOR
[2022-06-22 05:49] LABS: Hematocrit 28.9 % (42.0-52.0); Hemoglobin 8.4 g/dL (14.0-18.0); Mean Corpuscular HGB Conc 29.1 g/dl (32-36); Mean Corpuscular Hemoglobin 29.9 pg (26-34); Mean Corpuscular Volume 102.8 fl (80-100); Mean Platelet Volume 10.8 fl (7.4-10.4); Platelet Count Result 198 k/mm3 (150-375); Red Blood Count 2.81 M/mm3 (4.6-6.20); Red Cell Distribution Width 17.1 % (11.5-14.5); White Blood Count 16.5 K/mm3 (4.5-10.0)
[2022-06-22 06:16] LABS: Alanine Aminotransferase 10 U/L (6-50); Albumin Level 3.2 g/dL (3.5-5.1); Alkaline Phosphatase 159 U/L (38-126); Anion Gap 9 mmol/L (8-16); Aspartate Amino Transferase 26 U/L (17-59); Bilirubin,Total 0.4 mg/dL (0.2-1.3); Blood Urea Nitrogen 38 mg/dL (9-20); Calcium 9.1 mg/dL (8.4-10.2); Carbon Dioxide 30 mmol/L (22-30); Chloride 94 mmol/L (98-107); Estimated CRCL calculation 18 ml/min; Estimated Glomerular Filt Rate 21; Glucose 129 mg/dL (65-110); Potassium 3.7 mmol/L (3.4-5.0); Sodium 133 mmol/L (137-145)
[2022-06-22] MEDS: CENTRAL LINE FLUSH 10 ML IV PUSH ×5 (08:15→21:41)
[2022-06-22] MEDS: LEVOTHYROXINE SODIUM 75 MCG TABLET PO (08:15)
[2022-06-22] MEDS: ATORVASTATIN 40 MG TABLET 80 MG PO (08:30)
[2022-06-22] MEDS: MINERAL OIL/WHITE PETROLATUM OINTMENT 1 APPLIC EACH EYE ×2 (08:30→21:40)
[2022-06-22] MEDS: modafiniL (*CRX) 200 MG TABLET FEED TUBE (08:30)
[2022-06-22] MEDS: OPTI-GEN TAB 1 TABLET PO (08:30)
[2022-06-22] MEDS: PANTOPRAZOLE SODIUM IV 40 MG VIAL IV PUSH ×2 (08:30→21:41)
[2022-06-22] MEDS: DORNASE ALFA INH SOLN 1 MG/ML 2.5 ML AMP 2.5 MG INHALATION (08:41)
--- NOTE | 2022-06-22 10:35 | WPDINTPN ---
Progress Note: A&P Assessment and Plan (1) Cardiac arrest: Code(s): I46.9 - Cardiac arrest, cause unspecified Status: Acute Assessment and Plan: Exact etiology not clear but patient has significant coronary artery disease and cardiomyopathy, he received propofol for sedation which itself can cause bradycardia, hypoventilation from sedation during the procedure is another possibility which could have led to respiratory acidosis, respiratory failure, bradycardia and PEA arrest -Worsening anemia could be another contributing factor as his hemoglobin is 6.9 -Aspiration is also possibility although patient was NPO prior to the procedure because of his GI bleed and for EGD 06/17/2022: Patient in the brief cardiac arrest with 1 round of CPR with ROSC, No medications were given. Likely secondary to rescue cath suction and possibly vasovagal as he bradycardic and then lost his pulse. 06/18/2022: ETT data cuff leak any coughed and tube out and had to be reintubated, intubation was uneventful, patient was placed on Precedex infusion. -Precedex has been discontinued since 06/19/2022 -patient has been requiring Levophed on and off for for dialysis -appreciate cardiology following the patient -patient's pacemaker rate was increased to 60 -06/12/2022: Cardiac echocardiogram: LV systolic function is severely reduced with EF of 25-30%, grade 3 diastolic dysfunction, RV systolic function is moderately reduced, mild mitral valve regurg, mild tricuspid valve regurg, moderate pulmonary hypertension with RVSP of 49 mmHg. (2) Acute respiratory failure: Code(s): J96.00 - Acute respiratory failure, unspecified whether with hypoxia or hypercapnia Status: Acute Assessment and Plan: Respiratory failure likely related to cardiac arrest -intubated 06/12/2022 -weaning has been unsuccessful as patient is too drowsy, gets apneic, has high RSBI on trial -06/20: Thick ETT secretions, febrile, elevated WBC count, worsening chest x-ray -patient was started patient on cefepime renally dosed and vancomycin (06/20) 06/20 CT chest noncontrast 1. Bilateral airspace disease, left greater than right, which may represent edema and/or pneumonia. Left basilar airspace disease has progressed since prior CT examination. 2: Moderate left and small right pleural effusions. 3:? Moderate cardiomegaly. 4:? Ascites. Chest x-ray 06/21 1. Worsened complete opacification of left hemithorax, likely a combination of atelectasis from mucous plugging and pleural effusion. 2. Interstitial pattern in right lung, consistent mild pulmonary edema. 3. Cardiomegaly. Additional fluid was removed yesterday by hemodialysis 06/21 patient underwent diagnostic and therapeutic thoracentesis and 700 mL fluid was removed I placed patient on weaning trial this morning he had adequate RSBI. His ET tube cuff developed a leak. He had a similar issue on on 06/18. As I was planning and trying to to extubate the patient, I decided to extubate patient at that time and monitor closely. He may still need re-intubation Frequent nasal suction Status post Levaquin, Flagyl x7 days for possible aspiration pneumonia. Continue cefepime and vancomycin (started 06/20) (3) End-stage renal disease on hemodialysis: Code(s): N18.6 - End stage renal disease; Z99.2 - Dependence on renal dialysis Status: Acute Assessment and Plan: Patient has a history of end-stage renal disease and started on hemodialysis in April 2022 -patient does require Levophed briefly with dialysis -dialysis per Nephrology which is Sunday at this time (4) GI bleed: Code(s): K92.2 - Gastrointestinal hemorrhage, unspecified Status: Acute Assessment and Plan: 06/12 EGD showed small ulcer which was not bleeding and gastritis, hiatal hernia PPI IV q.12 hours 06/12 Hemoglobin was 6.9, transfuse1 unit of PRBC Monitor hemoglobin and transfuse additional units as needed Anticoagulation o
--- NOTE | 2022-06-22 11:10 | PCFNICU ---
ICU Rounding Note: Pt current nutrition is NPO. Last recorded weight is 80.6 kg, up from 80.2 kg on admit. Bowel Motility:+Bm reported 06/20 Labs Reviewed:Glu 129, BUN 38, Cr 3.0,Na 133, Hct 28.9,Hgb 8.4 Meds Noted:Lipitor, Protonix, Synthroid Skin: WNL Additional Notes: Patient extubated. Ventimask at this time. Thoracentesis yesterday, 700 ml removed. Tube feedings on hold. chest xray-improving. Following daily in ICU rounds and reassessing every 3 days.
--- NOTE | 2022-06-22 11:15 | WPDNEURCNPN ---
Assessment and Plan Assessment and plan (1) Encephalopathy: Code(s): G93.40 - Encephalopathy, unspecified Status: Acute Plan encephalopathy but as per the nurse's information gradually more alert responding to verbal stimuli treatment will continue as such will obtain EEG for further clarification Consult date: 06/22/22 Time Seen: 11:00 HPI: Jaime Morrell is a 76 year old male admitted to the hospital through the emergency room on June 11, 2022 with history of being on aspirin Plavix and Eliquis but the complaints of dark tarry stools in addition to ongoing history of multiple medical problems particularly abdominal aortic aneurysm, ascites, chronic anemia, chronic renal disease stage IV, diabetes mellitus, GERD, and intermittent nonsustained ventricular tachycardia, history of pancreatitis, psoriasis has been admitted to intensive care for end-stage renal disease on hemodialysis in addition to history of cardiac arrest and has been on propofol for sedation and the possibility of aspiration, neuro consultation has been obtained to evaluate the neurological status Review of Systems Review of Systems: All systems reviewed & are unremarkable except as noted in HPI and below PMFSH Past Medical History Medical History (Updated 06/22/22 @ 11:27 by Ganesh Rockwell MD) Abdominal aortic aneurysm Acute on chronic combined systolic and diastolic CHF (congestive heart failure) Arthritis Ascites Carotid stenosis, bilateral Carpal tunnel syndrome Chronic anemia Chronic kidney disease, stage 4 (severe) CKD stage 4 due to type 2 diabetes mellitus COPD (chronic obstructive pulmonary disease) Deep venous thrombosis Erosive gastritis Essential hypertension Gastroesophageal reflux disease Heart failure with reduced ejection fraction Echo in 07/2021: 1. Technically difficult study with limited views. 2. Moderately reduced LF function with an EF estimated at 30-35% with hypokinesis of the mid to basal anterolateral, inferior, anterior, and basal inferoseptal arroyo with relative sparing of the apex. 3. Mildly increased LV wall thickness. 4. Left atria is moderately enlarged. 5. Mild tricuspid valve regurgitation. 6. Severe pulmonary hypertension with an estimated pulmonary arterial systolic pressure of 65 mmHg. Hypothyroidism Insulin dependent type 2 diabetes mellitus Melena Mixed hyperlipidemia Nonsustained ventricular tachycardia Obstructive sleep apnea Intolerant to CPAP. Wears oxygen at nighttime. Pancreatitis Peripheral vascular disease Psoriasis Umbilical hernia without obstruction and without gangrene Vertigo Volume overload Surgical History Surgical History H/O abdominal surgery Revascularization to renal arteries and mesenteric artery H/O fasciotomy Right leg History of cataract extraction History of embolectomy Right leg History of stent insertion of renal artery History of tonsillectomy Hx of CABG Initially 5 vessel CABG and later on he had 1 that was redone now for those vessels are occluded he has collateral only the saphenous vein graft to the Left anterior descending is patent and otherwise his coronary arteries are occluded and all depend on the graft flow. Hx of cardiac catheterization Multiple times Presence of combination internal cardiac defibrillator (ICD) and pacemaker S/P carotid endarterectomy Family History Family History Mother Hypertension Family history of coronary artery disease Father Acute myocardial infarction Family history of coronary artery disease Sibling Heart disease Hyperlipidemia Social History Social History Social History: Patient lives at home with his niece and her two dogs. Surrogate decision maker: Nephew. Code status: Full code. Smoking packs per day: 1 Smoking cigarettes per day: 20.0 Years smoked: 25
--- NOTE | 2022-06-22 11:48 | PM.PNCARD ---
Progress Note: A&P Assessment and Plan (1) Chronic combined systolic and diastolic CHF (congestive heart failure): Code(s): I50.42 - Chronic combined systolic (congestive) and diastolic (congestive) heart failure Status: Acute Assessment and Plan: Relatively stable. blood pressure still soft and a lot of meds have not yet been resumed (2) Cardiac arrest with successful resuscitation: Code(s): I46.9 - Cardiac arrest, cause unspecified Status: Acute Assessment and Plan: Bradycardic and PDA arrest during endoscopy. Now extubated and off pressors. Has metabolic encephalopathy. (3) CAD (coronary artery disease): Code(s): I25.10 - Atherosclerotic heart disease of [place] coronary artery without angina pectoris Status: Acute Assessment and Plan: History of CABG and redo CABG All of coronary circulation goes through a saphenous vein graft to the Left anterior descending, so it is very important to continue some type of anticoagulation or anti-platelet agent. Continue atorvastatin (4) End stage renal disease: Code(s): N18.6 - End stage renal disease Status: Chronic (5) Melena: Code(s): K92.1 - Melena Status: Acute Assessment and Plan: 1 episode on admission, well taking aspirin, Plavix and Eliquis,resolved (6) DVT (deep venous thrombosis): Code(s): I82.409 - Acute embolism and thrombosis of unspecified deep veins of unspecified lower extremity Status: Acute Assessment and Plan: [id number] DVT noted on last admission, resolved. Subjective Date/time seen: 06/22/22 11:48 Long history of CAD in CHF, end-stage renal disease. Admitted with 1 episode of melena. Recently tx'd for a [id number] DVT, which has resolved. Bradycardia and PEA arrest. During endoscopy, etiology unclear.? Possibly related to sedation with propofol, hypotension.? He does have an ICD in place. though, so significant bradycardia should not be possible with back up pacing. History of CAD. Date of service 06/22/2022: Patient developed a cuff leak and was extubated this morning, so far tolerating this. Otherwise uneventful night. Review of Systems Review of Systems: Relevant Review of systems obtained from the patient's nurse, the homogenizer operator and the EMR, as above. ROS unobtainable: Yes unobtainable due to mental status Exam Narrative: extubated, unresponsive Const: General: comfortable and no acute distress HENMT: Mouth: Yes moist mucous membranes Eyes: General: appearance normal, both eyes and all related structures Neck: Neck: supple Resp: Effort & Inspection: normal respiratory effort Auscultation: wheezes ( mild diffuse expiratory wheezes) Cardio: Rate: regular rate and tachycardic Rhythm: regular rhythm Heart sounds: no murmurs GI: Inspection: non-distended GI Palp: No Tenderness to palpation present (GI) Skin: General skin exam: no rashes or lesions noted Neuro: General: confusion and patient obtunded Extrem: General: no edema Psych: Appearance: grossly abnormal Objective Data Vital Signs Vital Signs: Vital Signs - 24 hr 06/21/22 12:00 06/21/22 12:30 06/21/22 12:45 Temperature Pulse Rate 105 H 110 H 109 H Respiratory Rate Blood Pressure 110/81 120/88 101/87 Pulse Oximetry Oxygen Delivery Oxygen Flow Rate Fraction of Inspired Oxygen 06/21/22 12:17 06/21/22 12:15 06/21/22 13:00 Temperature 97.9 F Pulse Rate 113 H 113 H 109 H Respiratory Rate 22 H Blood Pressure 127/64 127/64 114/68 Pulse Oximetry 100 Oxygen Delivery Oxygen Flow Rate Fraction of Inspired Oxygen 06/21/22 13:15 06/21/22 13:30 06/21/22 13:45 Temperature Pulse Rate 101 H 105 H 105 H Respiratory Rate Blood Pressure 127/54 L 123/58 L 126/90 Pulse Oximetry Oxygen Delivery Oxygen Flow R
[2022-06-22 12:13] LABS: Glucose Point of Care 138 mg/dl (65-105)
--- NOTE | 2022-06-22 12:24 | P.PNNP_ITS ---
Progress Note: A&P Assessment and Plan (1) End stage renal disease: Code(s): N18.6 - End stage renal disease Status: Chronic Assessment and Plan: * HD today and continue M/W/ schedule * monitor electrolytes, clearance, and volume status (2) Cardiac arrest: Code(s): I46.9 - Cardiac arrest, cause unspecified Status: Acute Assessment and Plan: * exact etiology not clear * suspicion falls on use of propofol for procedure * however, other factors could be responsible including worsening anemia, aspiration, respiratory acidosis...etc * Cardiology recommendations noted * still requiring levophed for dialysis and fluid removal * most recent Echo noted (3) Acute respiratory failure: Code(s): J96.00 - Acute respiratory failure, unspecified whether with hypoxia or hypercapnia Status: Acute Assessment and Plan: * secondary to cardiac arrest * continue fluid removal with dialysis to optimize volume status * extubated earlier this today * follow respiratory status closely (4) GI bleed: Code(s): K92.2 - Gastrointestinal hemorrhage, unspecified Status: Acute Assessment and Plan: * s/p EGD (on 06/12/22) with small ulcer which was not bleeding, gastritis and hiatal hernia * PRBC transfusion per protocol * Epogen with HD * follow trend of H/H (5) Hypotension: Code(s): I95.9 - Hypotension, unspecified Status: Acute Assessment and Plan: * has a chronic component of hypotension at baseline (presumably secondary to his cardiomyopathy) * blood/urine/sputum cultures negative to date * requiring levophed during dialysis only * follow trend of hemodynamics (6) Acute on chronic combined systolic and diastolic CHF (congestive heart failure): Code(s): I50.43 - Acute on chronic combined systolic (congestive) and diastolic (congestive) heart failure Status: Acute Assessment and Plan: * push fluid removal with dialysis * limiting factor is his hemodynamics * recent Echo noted (7) Diabetes: Code(s): E11.9 - Type 2 diabetes mellitus without complications Status: Chronic Assessment and Plan: * follow accuchecks * on SSI Will continue to follow. Subjective Date/time seen: 06/22/22 12:24 Tolerated hemodialysis treatment yesterday with approximately 4L fluid removal; extubated and on Venturimask at the time of my visit; still seems a bit confused but in no apparent distress; no issues/events overnight or earlier this AM. Exam Narrative: General: WD/WN male in NAD; on Ventimask Heart: normal S1 and S2; no rub Lungs: coarse breath sounds throughout Abdomen: soft, nontender, nondistended, positive bowel sounds Extremities: no cyanosis or clubbing; 1+ edema Skin: warm and intact Objective Data Vital Signs Vital Signs: Vital Signs Temp Pulse Resp BP Pulse Ox O2 Del Method O2 Flow Rate 06/22/22 12:00 37.1 C 103 H 20 93/53 L 100 06/22/22 11:00 103 H 23 H 95 Venturi Mask 15 06/22/22 10:00 105 H 20 98 Venturi Mask 15 06/22/22 10:00 103 H 25 H 97 Venturi Mask 15 06/22/22 10:00 37.2 C 102 H 22 H 108/66 96 06/22/22 10:00 103 H 06/22/22 08:00 06/22/22 08:00 105 H 20 94 Mechanical Ventilation 06/22/22 08:00 102 H 06/22/22
--- NOTE | 2022-06-22 12:24 | PM.PNNEP ---
Progress Note: A&P Assessment and Plan (1) End stage renal disease: Code(s): N18.6 - End stage renal disease Status: Chronic Assessment and Plan: HD today and continue M/W/F schedule monitor electrolytes, clearance, and volume status (2) Cardiac arrest: Code(s): I46.9 - Cardiac arrest, cause unspecified Status: Acute Assessment and Plan: exact etiology not clear suspicion falls on use of propofol for procedure however, other factors could be responsible including worsening anemia, aspiration, respiratory acidosis...etc Cardiology recommendations noted still requiring levophed for dialysis and fluid removal most recent Echo noted (3) Acute respiratory failure: Code(s): J96.00 - Acute respiratory failure, unspecified whether with hypoxia or hypercapnia Status: Acute Assessment and Plan: secondary to cardiac arrest continue fluid removal with dialysis to optimize volume status extubated earlier this today follow respiratory status closely (4) GI bleed: Code(s): K92.2 - Gastrointestinal hemorrhage, unspecified Status: Acute Assessment and Plan: s/p EGD (on 06/12/22) with small ulcer which was not bleeding, gastritis and hiatal hernia PRBC transfusion per protocol Epogen with HD follow trend of H/H (5) Hypotension: Code(s): I95.9 - Hypotension, unspecified Status: Acute Assessment and Plan: has a chronic component of hypotension at baseline (presumably secondary to his cardiomyopathy) blood/urine/sputum cultures negative to date requiring levophed during dialysis only follow trend of hemodynamics (6) Acute on chronic combined systolic and diastolic CHF (congestive heart failure): Code(s): I50.43 - Acute on chronic combined systolic (congestive) and diastolic (congestive) heart failure Status: Acute Assessment and Plan: push fluid removal with dialysis limiting factor is his hemodynamics recent Echo noted (7) Diabetes: Code(s): E11.9 - Type 2 diabetes mellitus without complications Status: Chronic Assessment and Plan: follow accuchecks on SSI Will continue to follow. Subjective Date/time seen: 06/22/22 12:24 Tolerated hemodialysis treatment yesterday with approximately 4L fluid removal; extubated and on Venturimask at the time of my visit; still seems a bit confused but in no apparent distress; no issues/events overnight or earlier this AM. Exam Narrative: General: WD/WN male in NAD; on Ventimask Heart: normal S1 and S2; no rub Lungs: coarse breath sounds throughout Abdomen: soft, nontender, nondistended, positive bowel sounds Extremities: no cyanosis or clubbing; 1+ edema Skin: warm and intact Objective Data Vital Signs Vital Signs: Vital Signs Temp Pulse Resp BP Pulse Ox O2 Del Method O2 Flow Rate 06/22/22 12:00 37.1 C 103 H 20 93/53 L 100 06/22/22 11:00 103 H 23 H 95 Venturi Mask 15 06/22/22 10:00 105 H 20 98 Venturi Mask 15 06/22/22 10:00 103 H 25 H 97 Venturi Mask 15 06/22/22 10:00 37.2 C 102 H 22 H 108/66 96 06/22/22 10:00 103 H 06/22/22 08:00 06/22/22 08:00 105 H 20 94 Mechanical Ventilation 06/22/22 08:00 102 H 06/22/22 08:50 98 27 H 06/22/22 08:42 92 27 H 06/22/22 08:34 95 98 Mechanical Ventilation 06/22/22 07:40 37.1 C 88 20 96/55 L 98 06/22/22 05:10 98 97 Mechanical Ventilation 06/22/22 06:00 37.2 C 98 25 H 85/50 L 98 06/22/22 06:00 98 06/22/22 04:00 37.2 C 98 26 H 98/50 L 97 06/22/22 04:00 06/22/22 04:00 98 26 H 97 Mechanical Ventilation 06/22/22 04:00 98 06/22/22 02:00 37.3 C 81 30 H 108/54 L 97 06/22/22 02:00 81 06/22/22 02:55 95 06/22/22 02:25 96 97 Mechanical Ventilation 06/22/22 00:00 06/22/22 00:00 Dresser Tender
--- NOTE | 2022-06-22 17:08 | PM.IMPN ---
Progress Note: A&P Assessment and Plan (1) Cardiac arrest: Code(s): I46.9 - Cardiac arrest, cause unspecified Status: Acute Assessment and Plan: Unsure of etiology, appreciate Cardiology and Critical Care consultations Multifactorial. Medications induced bradycardia/ hypoventilation sedation Possible aspiration Needed 1 round of CPR with ROSC Pacemaker rate increased to 60 Echo 06/12/2022 LV EF 25-30%, grade 3 diastolic dysfunction, RV systolic function moderately reduced, mild mitral valve regurgitation, mild tricuspid valve regurgitation, moderate pulmonary hypertension with RVSP of 49 mm Hg (2) Acute respiratory failure: Code(s): J96.00 - Acute respiratory failure, unspecified whether with hypoxia or hypercapnia Status: Acute Assessment and Plan: Aspiration pneumonia was suspected Likely due to cardiac arrest Intubated 06/12/2022 Weaning unsuccessful Worsening chest x-ray and CT chest 06/20/2022 started on cefepime and vancomycin 06/20. Status post thoracentesis 06/21/2022 Chest x-ray/10/03 improved (3) End-stage renal disease on hemodialysis: Code(s): N18.6 - End stage renal disease; Z99.2 - Dependence on renal dialysis Status: Acute Assessment and Plan: Appreciate nephrology consultation for dialysis management On intermittent hemodialysis Sunday (4) GI bleed: Code(s): K92.2 - Gastrointestinal hemorrhage, unspecified Status: Acute Assessment and Plan: status post EGD 06/12/2022:Gastritis, small ulcer Which was not bleeding, hiatal hernia. On PPI Monitor H&H. (5) DVT (deep venous thrombosis): Code(s): I82.409 - Acute embolism and thrombosis of unspecified deep veins of unspecified lower extremity Status: Acute Assessment and Plan: Patient has a history of DVT was on Eliquis. Currently holding Eliquis due to GI bleed 06/12 venous duplex right lower extremity without any DVT On prophylactic Lovenox for now as GI bleed has been stable (6) Diabetes: Code(s): E11.9 - Type 2 diabetes mellitus without complications Status: Chronic Assessment and Plan: Continue sliding scale insulin Accu-Cheks adjust insulin as needed (7) Acute on chronic combined systolic and diastolic CHF (congestive heart failure): Code(s): I50.43 - Acute on chronic combined systolic (congestive) and diastolic (congestive) heart failure Status: Acute Assessment and Plan: Appreciate cardiology consultation, fluid management essentially being managed by Nephrology (8) Hypotension: Code(s): I95.9 - Hypotension, unspecified Status: Acute Assessment and Plan: On intermittent Levophed during dialysis Currently off Levophed (9) Encephalopathy: Code(s): G93.40 - Encephalopathy, unspecified Status: Acute Assessment and Plan: previous history of propofol use leading to unresponsiveness reported Neurology consulted Remains to be somnolent and drowsy added Provigil Eeg planned (10) Ileus: Code(s): K56.7 - Ileus, unspecified Status: Acute Assessment and Plan: Resolved Plan DVT prophylaxis Lovenox Code status full code Nutrition to feed Subjective Date/time seen: 06/22/22 17:08 Interval history: 76-year-old gentleman with ischemic cardiomyopathy with EF of 25-30% end-stage renal disease on dialysis, coronary artery disease status post CABG and redo CABG, peripheral vascular disease, chronic systolic and diastolic heart failure, diabetes, obstructive sleep apnea underwent an EGD on 06/12/2021, patient received propofol for sedation, procedure he became bradycardic, was given epinephrine, ephedrine and atropine and transcutaneous pacing was done.? He went into PEA arrest and required 1 round of CPR and 1 dose of epinephrine before ROSC.? Patient was intubated by Anesthesia and transferred to the ICU, he was hypotensive and a central li
[2022-06-22 17:41] LABS: Glucose Point of Care 116 mg/dl (65-105)
[2022-06-22] MEDS: CEFEPIME 0.5 GM in DEXTROSE 5% IN WATER 50 ML IVPB (18:00)
[2022-06-23] VITALS (20 sets, daily range): BP systolic 96–142; BP diastolic 52–72; PULSE 70–101; RESP 12–29; TEMP 36.3–37.4; O2SAT 93–100
[2022-06-23 01:10] LABS: Glucose Point of Care 120 mg/dl (65-105)
[2022-06-23 04:40] LABS: Hematocrit 28.1 % (42.0-52.0); Hemoglobin 8.3 g/dL (14.0-18.0); Mean Corpuscular HGB Conc 29.5 g/dl (32-36); Mean Corpuscular Volume 101.4 fl (80-100); Mean Platelet Volume 10.2 fl (7.4-10.4); Platelet Count Result 207 k/mm3 (150-375); Red Blood Count 2.77 M/mm3 (4.6-6.20); Red Cell Distribution Width 16.8 % (11.5-14.5); White Blood Count 12.1 K/mm3 (4.5-10.0)
[2022-06-23 04:53] LABS: Alanine Aminotransferase 10 U/L (6-50); Albumin Level 3.1 g/dL (3.5-5.1); Alkaline Phosphatase 124 U/L (38-126); Anion Gap 9 mmol/L (8-16); Aspartate Amino Transferase 32 U/L (17-59); Bilirubin,Total 0.5 mg/dL (0.2-1.3); Blood Urea Nitrogen 53 mg/dL (9-20); Calcium 9.6 mg/dL (8.4-10.2); Carbon Dioxide 29 mmol/L (22-30); Chloride 94 mmol/L (98-107); Estimated CRCL calculation 14 ml/min; Estimated Glomerular Filt Rate 16; Glucose 113 mg/dL (65-110); Magnesium 2.1 mg/dL (1.6-2.3); Phosphorus 3.7 mg/dL (2.5-4.5); Sodium 132 mmol/L (137-145)
[2022-06-23] MEDS: CENTRAL LINE FLUSH 10 ML IV PUSH ×4 (05:36→21:44)
--- NOTE | 2022-06-23 08:34 | PM.PNCARD ---
Progress Note: A&P Assessment and Plan (1) Cardiac arrest with successful resuscitation: Code(s): I46.9 - Cardiac arrest, cause unspecified Status: Acute (2) End stage renal disease: Code(s): N18.6 - End stage renal disease Status: Chronic Plan 77-year-old man who truly has end-stage ischemic heart disease. He is off the ventilator now since yesterday remains hospitalized in the ICU and very fragile condition. We may be able to reinstitute very cautiously some medical therapy for his ischemic cardiomyopathy as we go forward. Given his end-stage condition I would fully support the decision to institute and DNR status for this gentleman. Yehuda Richmond MD [facility] Subjective Date/time seen: date of service:06/23/22 08:34 Interval history: Follow-up visit in this 77-year-old man with: Chronic coronary artery disease, 2 previous bypass operations and ischemic cardiomyopathy. Patient has been on guideline directed medical therapy with a defibrillator for a number of years and has been wrong remarkably stable. Earlier this year he has developed worsening condition with repeated admissions with heart failure declining renal function and now is dependent on hemodialysis. Patient clearly has end-stage ischemic heart disease. As mentioned in previous notes his only remaining coronary circulation is a old vein graft to his LAD. No options for further revascularization are available patient was extubated yesterday when the cough ruptured on his ET tube. He is so far tolerating being off the ventilator. He is alert in the ICU but is incoherent and does not follow commands. Exam Const: Other: Elderly chronically ill gentleman in ICU room 5. He is supine he is responsive to stimulation but incoherent HENMT: Mouth: Yes moist mucous membranes Eyes: Sclera: sclerae normal Neck: Neck: no JVD Resp: Other: has some stridorous breath sounds this morning Cardio: Rate: regular rate Rhythm: regular rhythm Other: soft systolic murmur does not radiate from the left sternal border GI: GI Palp: Yes Soft to palpation Auscultation: normal bowel sounds Skin: General skin exam: normal color Neuro: Other: responsive but incoherent Extrem: Other: modest pretibial edema Objective Data Vital Signs Vital Signs: Vital Signs - 24 hr 06/22/22 08:42 06/22/22 08:50 06/22/22 10:00 Temperature Pulse Rate 92 98 103 H Respiratory Rate 27 H 27 H Blood Pressure Pulse Oximetry Oxygen Delivery Oxygen Flow Rate Fraction of Inspired Oxygen 06/22/22 10:00 06/22/22 10:00 06/22/22 10:00 Temperature 37.2 C Pulse Rate 102 H 103 H 105 H Respiratory Rate 22 H 25 H 20 Blood Pressure 108/66 Pulse Oximetry 96 97 98 Oxygen Delivery Venturi Mask Venturi Mask Oxygen Flow Rate 15 15 Fraction of Inspired Oxygen 40 50 06/22/22 11:00 06/22/22 12:00 06/22/22 13:09 Temperature 37.1 C Pulse Rate 103 H 103 H 105 H Respiratory Rate 23 H 20 20 Blood Pressure 93/53 L Pulse Oximetry 95 100 98 Oxygen Delivery Venturi Mask Venturi Mask Oxygen Flow Rate 15 15 Fraction of Inspired Oxygen 40 50 06/22/22 12:00 06/22/22 12:00 06/22/22 14:52 Temperature Pulse Rate 93 105 H Respiratory Rate 20 Blood Pressure Pulse Oximetry 98 97 Oxygen Delivery Venturi Mask Venturi Mask Oxygen Flow Rate 15 9 Fraction of Inspired Oxygen 50 35 06/22/22 14:00 06/22/22 14:00 06/22/22 16:00 Temperature 36.8 C Pulse Rate 101 H 101 H 100 Respiratory Rate 19 Blood Pressure 85/49 L Pulse Oximetry 96 Oxygen Delivery Oxygen Flow Rate Fraction of Inspired Oxygen 06/22/22 16:00 06/22/22 16:00 06/22/22 18:00 Temperature 37.0 C Pulse Rate 100 93 96 Respiratory Rate 26 H 26 H Blood Pressure 98/75 L Pulse Oximetry 98 100 Oxygen Delivery High Flow Nasal Cannula Oxygen Flow Rate 4 Fraction of Inspired Oxygen 06/22/22 18:00 06/22/22 2
[2022-06-23] MEDS: PANTOPRAZOLE SODIUM IV 40 MG VIAL IV PUSH ×2 (08:44→21:41)
[2022-06-23] MEDS: methylPREDNISolone SOD SUCC 40 MG VIAL IV PUSH ×3 (08:45→21:41)
[2022-06-23] MEDS: racEPINEPHrine 2.25% NEBU SOLN 0.5 ML VIAL.NEB INHALATION (08:54)
--- NOTE | 2022-06-23 10:08 | PCPTNOTE ---
At 9:53 on 06/23, initiated attempt PT evaluation. Attempted to arouse using sternal rub, calling his name, PROM of UE and LE. He has a positive babinski sign on right foot. Demonstrates reflexive drawing in of arms when performing PROM. Attempted to arouse patient for 13 minutes. Occasionally he would open his eyes but would not respond to his name or follow directions. Spoke with fur polisher about patient's current status and requests that we check in on patient again tomorrow, but if he continues to be unable to follow commands then orders will be reconsidered.
--- NOTE | 2022-06-23 10:48 | WPDINTPN ---
Progress Note: A&P Assessment and Plan (1) Cardiac arrest: Code(s): I46.9 - Cardiac arrest, cause unspecified Status: Acute Assessment and Plan: Exact etiology not clear but patient has significant coronary artery disease and cardiomyopathy, he received propofol for sedation which itself can cause bradycardia, hypoventilation from sedation during the procedure is another possibility which could have led to respiratory acidosis, respiratory failure, bradycardia and PEA arrest -Worsening anemia could be another contributing factor as his hemoglobin is 6.9 -Aspiration is also possibility although patient was NPO prior to the procedure because of his GI bleed and for EGD 06/17/2022: Patient in the brief cardiac arrest with 1 round of CPR with ROSC, No medications were given. Likely secondary to rescue cath suction and possibly vasovagal as he bradycardic and then lost his pulse. -patient has been requiring Levophed on and off for for dialysis -appreciate cardiology following the patient -patient's pacemaker rate was increased to 60 -06/12/2022: Cardiac echocardiogram: LV systolic function is severely reduced with EF of 25-30%, grade 3 diastolic dysfunction, RV systolic function is moderately reduced, mild mitral valve regurg, mild tricuspid valve regurg, moderate pulmonary hypertension with RVSP of 49 mmHg. (2) Acute respiratory failure: Code(s): J96.00 - Acute respiratory failure, unspecified whether with hypoxia or hypercapnia Status: Acute Assessment and Plan: Respiratory failure likely related to cardiac arrest -intubated 06/12/2022 -weaning has been unsuccessful as patient is too drowsy, gets apneic, has high RSBI on trial -06/20: Thick ETT secretions, febrile, elevated WBC count, worsening chest x-ray -patient was started patient on cefepime renally dosed and vancomycin (06/20) 06/20 CT chest noncontrast 1. Bilateral airspace disease, left greater than right, which may represent edema and/or pneumonia. Left basilar airspace disease has progressed since prior CT examination. 2: Moderate left and small right pleural effusions. 3:? Moderate cardiomegaly. 4:? Ascites. Additional fluid was removed yesterday by hemodialysis and patient is scheduled for another dialysis session today 06/21 patient underwent diagnostic and therapeutic thoracentesis and 700 mL fluid was removed 06/22 extubated. Continues to maintain oxygenation on nasal cannula Chest x-ray shows worsening infiltrates likely from pulmonary edema. He is due for hemodialysis today Continue Frequent nasal suction Status post Levaquin, Flagyl x7 days for possible aspiration pneumonia. Continue cefepime and vancomycin (started 06/20) He has stridor exam-racemic epi and Solu-Medrol ordered He is at high risk of re-intubation. Continue to monitor closely in ICU (3) End-stage renal disease on hemodialysis: Code(s): N18.6 - End stage renal disease; Z99.2 - Dependence on renal dialysis Status: Acute Assessment and Plan: Patient has a history of end-stage renal disease and started on hemodialysis in April 2022 -patient does require Levophed briefly with dialysis -dialysis per Nephrology which is Sunday at this time (4) GI bleed: Code(s): K92.2 - Gastrointestinal hemorrhage, unspecified Status: Acute Assessment and Plan: 06/12 EGD showed small ulcer which was not bleeding and gastritis, hiatal hernia PPI IV q.12 hours 06/12 Hemoglobin was 6.9, transfuse1 unit of PRBC Monitor hemoglobin and transfuse additional units as needed Anticoagulation on hold (5) DVT (deep venous thrombosis): Code(s): I82.409 - Acute embolism and thrombosis of unspecified deep veins of unspecified lower extremity Status: Acute Assessment and Plan: 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 Anticoagulation held due to GI bleed 06/12 venous Doppler of right lower extremity does not show any DVT at this time On
--- NOTE | 2022-06-23 11:52 | P.PNIM_ITS ---
Progress Note: A&P Assessment and Plan (1) Cardiac arrest: Code(s): I46.9 - Cardiac arrest, cause unspecified Status: Acute Assessment and Plan: Unsure of etiology, appreciate Cardiology and Critical Care consultations Multifactorial. Medications induced bradycardia/ hypoventilation sedation Possible aspiration Needed 1 round of CPR with ROSC Pacemaker rate increased to 60 Echo 06/12/2022 LV EF 25-30%, grade 3 diastolic dysfunction, RV systolic function moderately reduced, mild mitral valve regurgitation, mild tricuspid valve regurgitation, moderate pulmonary hypertension with RVSP of 49 mm Hg (2) Acute respiratory failure: Code(s): J96.00 - Acute respiratory failure, unspecified whether with hypoxia or hypercapnia Status: Acute Assessment and Plan: Aspiration pneumonia was suspected Likely due to cardiac arrest Intubated 06/12/2022 Weaning unsuccessful Worsening chest x-ray and CT chest 06/20/2022 started on cefepime and vancomycin 06/20. Status post thoracentesis 06/21/2022 Chest x-ray/10/03 improved (3) End-stage renal disease on hemodialysis: Code(s): N18.6 - End stage renal disease; Z99.2 - Dependence on renal dialysis Status: Acute Assessment and Plan: Appreciate nephrology consultation for dialysis management On intermittent hemodialysis Sunday (4) GI bleed: Code(s): K92.2 - Gastrointestinal hemorrhage, unspecified Status: Acute Assessment and Plan: status post EGD 06/12/2022:Gastritis, small ulcer Which was not bleeding, hiatal hernia. On PPI Monitor H&H. (5) DVT (deep venous thrombosis): Code(s): I82.409 - Acute embolism and thrombosis of unspecified deep veins of unspecified lower extremity Status: Acute Assessment and Plan: Patient has a history of DVT was on Eliquis. Currently holding Eliquis due to GI bleed 06/12 venous duplex right lower extremity without any DVT On prophylactic Lovenox for now as GI bleed has been stable (6) Diabetes: Code(s): E11.9 - Type 2 diabetes mellitus without complications Status: Chronic Assessment and Plan: Continue sliding scale insulin Accu-Cheks adjust insulin as needed (7) Acute on chronic combined systolic and diastolic CHF (congestive heart failure): Code(s): I50.43 - Acute on chronic combined systolic (congestive) and diastolic (congestive) heart failure Status: Acute Assessment and Plan: Appreciate cardiology consultation, fluid management essentially being managed by Nephrology (8) Hypotension: Code(s): I95.9 - Hypotension, unspecified Status: Acute Assessment and Plan: On intermittent Levophed during dialysis Currently off Levophed (9) Encephalopathy: Code(s): G93.40 - Encephalopathy, unspecified Status: Acute Assessment and Plan: previous history of propofol use leading to unresponsiveness reported Neurology consulted Remains to be somnolent and drowsy added Provigil Eeg planned (10) Ileus: Code(s): K56.7 - Ileus, unspecified Status: Acute Assessment and Plan: Resolved Plan DVT prophylaxis Lovenox Code status full code Nutrition to feed Subjective Date/time seen: 06/23/22 11:52 Interval history: 76-year-old gentleman with ischemic cardiomyopathy with EF of 25-30% end-stage renal disease on dialysis, coronary artery disease status post CABG and redo CABG, peripheral vascular disease, chronic systolic
[2022-06-23] MEDS: ENOXAPARIN 30 MG/0.3 ML SYRINGE SUB-Q (12:34)
--- NOTE | 2022-06-23 12:49 | PCNFU ---
Nutrition Follow-Up Complete: Inadequate oral intake as related to mechanical ventilation as evidenced by tube feeding orders. Goal: Meet estimated nutritional needs Patient is progressing towards goal. We will continue current goal. Pt current nutrition is NPO. Last recorded weight is 76.8 kg, down from 80.2 kg on admit. Bowel Motility:+BM reported 06/23 Labs Reviewed:Glu 113, BUN 53, Cr 3.8, Na 132, Hct 28.1, Hgb 8.3 Meds Noted:Lovenox, Solu Medrol, Protonix Skin: WNL Additional Notes: Patient remains NPO at this time. Confusion. ST has been ordered. If patient is unable to tolerate oral intake recommend tube feedings of Nepro restarted at 40 ml/hr, providing 1584 kcals/72 gms protein, meeting 87% kcal needs and 94% protein needs. Free water flush 30 ml q 4 hours. Agree with diet orders. Will monitor in ICU rounds and reassessing every Sunday and Sunday.
--- NOTE | 2022-06-23 13:06 | PCSTNOTE ---
This patient was found to be staring and exhibited low oxygen saturation levels today at appr. 1:00 pm. Bedside Swallow Evaluation will not be attempted today and may the order may be discontinued should patient continue to exhibit respiratory issues. ST will follow one more day to determine appropriateness of oral presentations.
--- NOTE | 2022-06-23 13:29 | WPDPROCEDUR ---
Procedures Intubation Intubation Date: 06/23/22 Intubation Time: 13:00 Consent: Procedure done emergently. Patient was full code and unable to provide any consent due to mental status. A pre-procedural Time-Out was completed immediately before starting the procedure and confirmed: Patient Identification, Site, Procedure, Patient Position and the Availability of Requisite Equipment: Yes Sedative: etomidate (20) Laryngoscope: fiber optic video scope Assist device used: fiber optic device ET tube size: 7.5 Tube secured depth (cm): 24 Tube secured location: lips Tube placement confirmation: visualized tube passing through cords, equal breath sounds bilaterally, no breath sounds over epigastrium and confirmation by capnometry Patient tolerated procedure: well Intubation complications: none
--- NOTE | 2022-06-23 13:30 | P.PNCROSS_ITS ---
Event Note Event Note Event Note: Patient continued to be drowsy and unable to clear his airway. Required freque nt suctioning despite that significant oral secretions that he was unable to clear. Minimal to very weak cough. Although stridor had improved, he did not appear to be getting better. Decision was made to reintubate patient. Patient is full code. Patient was emergently intubated and placed back on mechanical ventilation. OG tube replaced. Placed on ASV mode and KUB and chest x-ray reviewed. ABG pending I spoke to and updated patient's nephew who is also patient's healthcare power attorney law clerk Rigoberto Mclean. I updated him with today's events including re- intubation. I answered all his questions. I explained him that we plan to repeat head CT today and EEG. I anticipate the patient will need tracheostomy and he is agreeable to proceed with tracheostomy if needed.
[2022-06-23] MEDS: NOREPINEPHRINE 8 MG/D5W 250 ML 8 MG/250 ML BAG 9.38 MG IV CONT (13:47)
--- NOTE | 2022-06-23 13:50 | PM.PNNEP ---
Progress Note: A&P Assessment and Plan (1) End stage renal disease: Code(s): N18.6 - End stage renal disease Status: Chronic Assessment and Plan: HD today and continue M/W/F schedule monitor electrolytes, clearance, and volume status (2) Cardiac arrest: Code(s): I46.9 - Cardiac arrest, cause unspecified Status: Acute Assessment and Plan: exact etiology not clear suspicion falls on use of propofol for procedure however, other factors could be responsible including worsening anemia, aspiration, respiratory acidosis...etc Cardiology recommendations noted still requiring levophed for dialysis and fluid removal most recent Echo noted (3) Acute respiratory failure: Code(s): J96.00 - Acute respiratory failure, unspecified whether with hypoxia or hypercapnia Status: Acute Assessment and Plan: secondary to cardiac arrest initially failed trial of extubation -- re-intubated today due to altered mental status, stridor, and inability to protect airway continue fluid removal with dialysis to optimize volume status will likely need tracheostomy (4) GI bleed: Code(s): K92.2 - Gastrointestinal hemorrhage, unspecified Status: Acute Assessment and Plan: s/p EGD (on 06/12/22) with small ulcer which was not bleeding, gastritis and hiatal hernia PRBC transfusion per protocol Epogen with HD follow trend of H/H (5) Hypotension: Code(s): I95.9 - Hypotension, unspecified Status: Acute Assessment and Plan: has a chronic component of hypotension at baseline (presumably secondary to his cardiomyopathy) blood/urine/sputum cultures negative to date requiring levophed during dialysis only follow trend of hemodynamics (6) Acute on chronic combined systolic and diastolic CHF (congestive heart failure): Code(s): I50.43 - Acute on chronic combined systolic (congestive) and diastolic (congestive) heart failure Status: Acute Assessment and Plan: push fluid removal with dialysis limiting factor is his hemodynamics recent Echo noted (7) Diabetes: Code(s): E11.9 - Type 2 diabetes mellitus without complications Status: Chronic Assessment and Plan: follow accuchecks on SSI Will continue to follow. Subjective Date/time seen: 06/23/22 13:50 Patient had to be re-intubated today due to ongoing confusion/mental status in association with inability to protect his airway; intubated and on mechanical ventilation at the time of my visit; no other acute issues overnight; appears comfortable; remains hemodynamically stable (has chronic relative hypotension). Exam Narrative: General: WD/WN male in NAD; intubated Heart: normal S1 and S2; no rub Lungs: coarse breath sounds throughout Abdomen: soft, nontender, nondistended, positive bowel sounds Extremities: no cyanosis or clubbing; 1+ edema Skin: no rash Objective Data Vital Signs Vital Signs: Vital Signs Temp Pulse Resp BP Pulse Ox O2 Del Method O2 Flow Rate 06/23/22 13:45 95 98 Mechanical Ventilation 06/23/22 10:00 36.8 C 96 22 H 107/56 L 100 06/23/22 10:00 96 06/23/22 08:00 92 27 H 100 Nasal Cannula 4 06/23/22 08:00 37.3 C 92 27 H 111/64 100 06/23/22 08:00 92 06/23/22 09:07 97 25 H 06/23/22 08:57 95 26 H 06/23/22 07:37 94 24 H 99 Nasal Cannula 3 06/23/22 05:56 36.6 C 94 29 H 107/56 L 93 06/23/22 05:56 93 06/23/22 04:00 36.6 C 93 25 H 96/64 L 100 06/23/22 04:00 93 25 H 100 High Flow Nasal Cannula 4 06/23/22 04:00 93 06/23/22 02:00 36.4 C 93 22 H 104/52 L 97 06/23/22 02:00 93 06/23/22 00:00 36.3 C L 94 17 102/55 L 100 06/23/22 00:00 94 17 100 High Flow Nasal Cannula 5 06/23/22 00:00 94 06/22/22 22:00 36.6 C 98 22 H 92/62 L 91 06/22/22 22:00 98 06/22/22 20:00 36
--- NOTE | 2022-06-23 13:50 | P.PNNP_ITS ---
Progress Note: A&P Assessment and Plan (1) End stage renal disease: Code(s): N18.6 - End stage renal disease Status: Chronic Assessment and Plan: * HD today and continue M// schedule * monitor electrolytes, clearance, and volume status (2) Cardiac arrest: Code(s): I46.9 - Cardiac arrest, cause unspecified Status: Acute Assessment and Plan: * exact etiology not clear * suspicion falls on use of propofol for procedure * however, other factors could be responsible including worsening anemia, aspiration, respiratory acidosis...etc * Cardiology recommendations noted * still requiring levophed for dialysis and fluid removal * most recent Echo noted (3) Acute respiratory failure: Code(s): J96.00 - Acute respiratory failure, unspecified whether with hypoxia or hypercapnia Status: Acute Assessment and Plan: * secondary to cardiac arrest initially * failed trial of extubation -- re-intubated today due to altered mental status, stridor, and inability to protect airway * continue fluid removal with dialysis to optimize volume status * will likely need tracheostomy (4) GI bleed: Code(s): K92.2 - Gastrointestinal hemorrhage, unspecified Status: Acute Assessment and Plan: * s/p EGD (on 06/12/22) with small ulcer which was not bleeding, gastritis and hiatal hernia * PRBC transfusion per protocol * Epogen with HD * follow trend of H/H (5) Hypotension: Code(s): I95.9 - Hypotension, unspecified Status: Acute Assessment and Plan: * has a chronic component of hypotension at baseline (presumably secondary to his cardiomyopathy) * blood/urine/sputum cultures negative to date * requiring levophed during dialysis only * follow trend of hemodynamics (6) Acute on chronic combined systolic and diastolic CHF (congestive heart failure): Code(s): I50.43 - Acute on chronic combined systolic (congestive) and diastolic (congestive) heart failure Status: Acute Assessment and Plan: * push fluid removal with dialysis * limiting factor is his hemodynamics * recent Echo noted (7) Diabetes: Code(s): E11.9 - Type 2 diabetes mellitus without complications Status: Chronic Assessment and Plan: * follow accuchecks * on SSI Will continue to follow. Subjective Date/time seen: 06/23/22 13:50 Patient had to be re-intubated today due to ongoing confusion/mental status in association with inability to protect his airway; intubated and on mechanical ventilation at the time of my visit; no other acute issues overnight; appears comfortable; remains hemodynamically stable (has chronic relative hypotension). Exam Narrative: General: WD/WN male in NAD; intubated Heart: normal S1 and S2; no rub Lungs: coarse breath sounds throughout Abdomen: soft, nontender, nondistended, positive bowel sounds Extremities: no cyanosis or clubbing; 1+ edema Skin: no rash Objective Data Vital Signs Vital Signs: Vital Signs Temp Pulse Resp BP Pulse Ox O2 Del Method O2 Flow Rate 06/23/22 13:45 95 98 Mechanical Ventilation 06/23/22 10:00 36.8 C 96 22 H 107/56 L 100 06/23/22 10:00 96 06/23/22 08:00 92 27 H 100 Nasal Cannula 4 06/23/22 08:00 37.3 C 92 27 H 111/64 100 06/23/22 08:00 92 06/23/22 09:0
[2022-06-23 14:09] LABS: Alveolar/Arterial O2 Gradient 91.6 mmHg; Base Excess ABG -0.5 mEq/l (+/-2.0); Fractional Inspired Oxygen 50 %; HCO3 ABG 23.6 mEq/l (22.0-26.0); Oxygen Content ABG 14.1 %vol (16.0-22.0); Oxygen Saturation ABG 99.5 % (95.0-100.0); Oxyhemoglobin 98.4 % THb (90.0-100.0); PCO2 ABG 36.5 mmHg (35.0-45.0); PO2 ABG 223.8 mmHg (80.0-100.0); PO2 FiO2 Ratio Arterial Blood 4.48 %; Total Hemoglobin 9.8 g/dL (12.0-18.0); pH ABG 7.428 (7.350-7.450)
[2022-06-23 14:10] LABS: Arterial Blood Gas Vent Mode ASV; Device VENTILATOR; Modified Allen's Test Pass; Site Drawn RIGHT RADIAL
[2022-06-23 14:11] LABS: Arterial Blood Gas PEEP 8 cmH2O
--- NOTE | 2022-06-23 16:40 | PCOTNOTE ---
Attempted to see pt. for occupational therapy evaluation. Pt. has been intubated, pt. not appropriate for therapy services at this time due to change in medical status. D/C orders. Re-order when pt. able to participate in therapy services.
[2022-06-23 18:03] LABS: Glucose Point of Care 129 mg/dl (65-105)
[2022-06-23 18:03] LABS: Glucose Point of Care 135 mg/dl (65-105)
[2022-06-23] MEDS: MINERAL OIL/WHITE PETROLATUM OINTMENT 1 APPLIC EACH EYE (21:40)
[2022-06-23] MEDS: SENNA/DOCUSATE SODIUM TABLET 1 TAB PO (21:43)
[2022-06-23] MEDS: OPTI-GEN TAB 1 TABLET PO (21:43)
[2022-06-23] MEDS: CHOLECALCIFEROL 1,000 UNITS TABLET 5000 UNITS PO (21:43)
[2022-06-24] VITALS (33 sets, daily range): BP systolic 99–138; BP diastolic 57–107; PULSE 60–94; RESP 10–21; TEMP 35–37.4; O2SAT 95–100
[2022-06-24 01:00] LABS: Glucose Point of Care 169 mg/dl (65-105)
[2022-06-24] MEDS: methylPREDNISolone SOD SUCC 40 MG VIAL IV PUSH (04:00)
[2022-06-24] MEDS: LEVOTHYROXINE SODIUM 75 MCG TABLET PO (05:32)
[2022-06-24] MEDS: CENTRAL LINE FLUSH 10 ML IV PUSH ×4 (05:33→17:43)
[2022-06-24 05:49] LABS: Alveolar/Arterial O2 Gradient 54.8 mmHg; Base Excess ABG 1.9 mEq/l (+/-2.0); Carboxyhemoglobin 0.3 % THb (0-2.0); Fractional Inspired Oxygen 35 %; Methemoglobin ABG 0.2 %THb (0-1.5); Oxygen Content ABG 13.5 %vol (16.0-22.0); Oxyhemoglobin 97.9 % THb (90.0-100.0); PCO2 ABG 38.6 mmHg (35.0-45.0); PO2 ABG 149.9 mmHg (80.0-100.0); PO2 FiO2 Ratio Arterial Blood 4.28 %; Reduced Hemoglobin 1.6 %THb (0-5.0); Total Hemoglobin 9.6 g/dL (12.0-18.0); pH ABG 7.446 (7.350-7.450)
[2022-06-24 05:50] LABS: Arterial Blood Gas PEEP 8 cmH2O; Arterial Blood Gas Vent Mode ASV; Device VENTILATOR; Modified Allen's Test Unable to perform; Site Drawn RIGHT RADIAL
[2022-06-24 06:12] LABS: Hematocrit 27.7 % (42.0-52.0); Hemoglobin 8.3 g/dL (14.0-18.0); Mean Corpuscular Hemoglobin 29.7 pg (26-34); Mean Corpuscular Volume 99.3 fl (80-100); Mean Platelet Volume 10.9 fl (7.4-10.4); Platelet Count Result 233 k/mm3 (150-375); Red Blood Count 2.79 M/mm3 (4.6-6.20); Red Cell Distribution Width 16.6 % (11.5-14.5); White Blood Count 9.3 K/mm3 (4.5-10.0)
[2022-06-24 06:37] LABS: Alanine Aminotransferase 14 U/L (6-50); Albumin Level 3.2 g/dL (3.5-5.1); Alkaline Phosphatase 135 U/L (38-126); Anion Gap 11 mmol/L (8-16); Aspartate Amino Transferase 36 U/L (17-59); Bilirubin,Total 0.4 mg/dL (0.2-1.3); Blood Urea Nitrogen 78 mg/dL (9-20); Calcium 9.7 mg/dL (8.4-10.2); Carbon Dioxide 28 mmol/L (22-30); Chloride 93 mmol/L (98-107); Estimated CRCL calculation 11 ml/min; Estimated Glomerular Filt Rate 12; Glucose 192 mg/dL (65-110); Magnesium 2.4 mg/dL (1.6-2.3); Phosphorus 4.6 mg/dL (2.5-4.5); Potassium 4.3 mmol/L (3.4-5.0); Sodium 132 mmol/L (137-145)
--- NOTE | 2022-06-24 07:30 | PCPTNOTE ---
Attempted to see for Physical Therapy initial evaluation. Pt. is intubated and is not appropriate for therapy services at this time due to change in medical status. D/C orders. Re-order when pt. able to participate in therapy services.
--- NOTE | 2022-06-24 09:29 | WPDINTPN ---
Progress Note: A&P Assessment and Plan (1) Acute respiratory failure: Code(s): J96.00 - Acute respiratory failure, unspecified whether with hypoxia or hypercapnia Status: Acute Assessment and Plan: Respiratory failure likely related to cardiac arrest, generalized weakness debility, pulmonary edema and encephalopathy -initial intubated 06/12/2022 -weaning has been unsuccessful as patient is too drowsy, gets apneic, has high RSBI on trial -06/20: Thick ETT secretions, febrile, elevated WBC count, worsening chest x-ray -patient was started patient on cefepime renally dosed and vancomycin (06/20) 06/20 CT chest noncontrast 1. Bilateral airspace disease, left greater than right, which may represent edema and/or pneumonia. Left basilar airspace disease has progressed since prior CT examination. 2: Moderate left and small right pleural effusions. 3:? Moderate cardiomegaly. 4:? Ascites. Additional fluid was removed yesterday by hemodialysis and patient is scheduled for another dialysis session today 06/21 patient underwent diagnostic and therapeutic thoracentesis and 700 mL fluid was removed 06/22 extubated. 06/23 reintubated as patient unable to clear his secretions, stridor Chest x-ray reviewed He was supposed to get hemodialysis yesterday but it was not done he is scheduled today. He has completed a course of Solu-Medrol for stridor Status post Levaquin, Flagyl x7 days for possible aspiration pneumonia. Continue cefepime and vancomycin (started 06/20) He will likely need tracheostomy if unable to be extubated over next few days (2) End-stage renal disease on hemodialysis: Code(s): N18.6 - End stage renal disease; Z99.2 - Dependence on renal dialysis Status: Acute Assessment and Plan: Patient has a history of end-stage renal disease and started on hemodialysis in April 2022 -patient does require Levophed briefly with dialysis -dialysis per Nephrology which is Sunday at this time -he is scheduled for dialysis today as he did not get his session yesterday (3) Cardiac arrest: Code(s): I46.9 - Cardiac arrest, cause unspecified Status: Acute Assessment and Plan: Exact etiology not clear but patient has significant coronary artery disease and cardiomyopathy, he received propofol for sedation which itself can cause bradycardia, hypoventilation from sedation during the procedure is another possibility which could have led to respiratory acidosis, respiratory failure, bradycardia and PEA arrest -Worsening anemia could be another contributing factor as his hemoglobin is 6.9 -Aspiration is also possibility although patient was NPO prior to the procedure because of his GI bleed and for EGD 06/17/2022: Patient in the brief cardiac arrest with 1 round of CPR with ROSC, No medications were given. Likely secondary to rescue cath suction and possibly vasovagal as he bradycardic and then lost his pulse. -patient has been requiring Levophed on and off for for dialysis -appreciate cardiology following the patient -patient's pacemaker rate was increased to 60 -06/12/2022: Cardiac echocardiogram: LV systolic function is severely reduced with EF of 25-30%, grade 3 diastolic dysfunction, RV systolic function is moderately reduced, mild mitral valve regurg, mild tricuspid valve regurg, moderate pulmonary hypertension with RVSP of 49 mmHg. (4) GI bleed: Code(s): K92.2 - Gastrointestinal hemorrhage, unspecified Status: Acute Assessment and Plan: 06/12 EGD showed small ulcer which was not bleeding and gastritis, hiatal hernia PPI IV q.12 hours 06/12 Hemoglobin was 6.9, transfuse1 unit of PRBC Monitor hemoglobin and transfuse additional units as needed Therapeutic Anticoagulation on hold although he has been resumed on prophylactic dose (5) DVT (deep venous thrombosis): Code(s): I82.409 - Acute embolism and thrombosis of unspecified deep veins of unspecified lower extremity
--- NOTE | 2022-06-24 09:55 | PCSTNOTE ---
Attempted to follow up from 06/23/22 for Speech Therapy initial evaluation. Pt. was intubated on 06/23/22 and is not appropriate for therapy services at this time due to change in medical status. D/C orders. Re-order when pt. able to participate in therapy services.
[2022-06-24] MEDS: PANTOPRAZOLE SODIUM IV 40 MG VIAL IV PUSH ×2 (10:06→20:18)
[2022-06-24] MEDS: OPTI-GEN TAB 1 TABLET PO ×2 (10:06→20:18)
[2022-06-24] MEDS: ATORVASTATIN 40 MG TABLET 80 MG PO (10:06)
[2022-06-24] MEDS: ENOXAPARIN 30 MG/0.3 ML SYRINGE SUB-Q (10:06)
[2022-06-24] MEDS: MINERAL OIL/WHITE PETROLATUM OINTMENT 1 APPLIC EACH EYE ×2 (10:06→20:18)
[2022-06-24] MEDS: modafiniL (*CRX) 200 MG TABLET FEED TUBE (10:08)
--- NOTE | 2022-06-24 11:18 | PM.IMPN ---
Progress Note: A&P Assessment and Plan (1) Cardiac arrest: Code(s): I46.9 - Cardiac arrest, cause unspecified Status: Acute Assessment and Plan: Unsure of etiology, appreciate Cardiology and Critical Care consultations Multifactorial. Medications induced bradycardia/ hypoventilation sedation Possible aspiration Needed 1 round of CPR with ROSC Pacemaker rate increased to 60 Echo 06/12/2022 LV EF 25-30%, grade 3 diastolic dysfunction, RV systolic function moderately reduced, mild mitral valve regurgitation, mild tricuspid valve regurgitation, moderate pulmonary hypertension with RVSP of 49 mm Hg (2) Acute respiratory failure: Code(s): J96.00 - Acute respiratory failure, unspecified whether with hypoxia or hypercapnia Status: Acute Assessment and Plan: Aspiration pneumonia was suspected Likely due to cardiac arrest Intubated 06/12/2022 Weaning unsuccessful Worsening chest x-ray and CT chest 06/20/2022 started on cefepime and vancomycin 06/20. Status post thoracentesis 06/21/2022 Chest x-ray/10/03 improved (3) End-stage renal disease on hemodialysis: Code(s): N18.6 - End stage renal disease; Z99.2 - Dependence on renal dialysis Status: Acute Assessment and Plan: Appreciate nephrology consultation for dialysis management On intermittent hemodialysis Sunday (4) GI bleed: Code(s): K92.2 - Gastrointestinal hemorrhage, unspecified Status: Acute Assessment and Plan: status post EGD 06/12/2022:Gastritis, small ulcer Which was not bleeding, hiatal hernia. On PPI Monitor H&H. (5) DVT (deep venous thrombosis): Code(s): I82.409 - Acute embolism and thrombosis of unspecified deep veins of unspecified lower extremity Status: Acute Assessment and Plan: Patient has a history of DVT was on Eliquis. Currently holding Eliquis due to GI bleed 06/12 venous duplex right lower extremity without any DVT On prophylactic Lovenox for now as GI bleed has been stable (6) Diabetes: Code(s): E11.9 - Type 2 diabetes mellitus without complications Status: Chronic Assessment and Plan: Continue sliding scale insulin Accu-Cheks adjust insulin as needed (7) Acute on chronic combined systolic and diastolic CHF (congestive heart failure): Code(s): I50.43 - Acute on chronic combined systolic (congestive) and diastolic (congestive) heart failure Status: Acute Assessment and Plan: Appreciate cardiology consultation, fluid management essentially being managed by Nephrology (8) Hypotension: Code(s): I95.9 - Hypotension, unspecified Status: Acute Assessment and Plan: On intermittent Levophed during dialysis Currently off Levophed (9) Encephalopathy: Code(s): G93.40 - Encephalopathy, unspecified Status: Acute Assessment and Plan: previous history of propofol use leading to unresponsiveness reported Neurology consulted Remains to be somnolent and drowsy added Provigil Eeg planned (10) Ileus: Code(s): K56.7 - Ileus, unspecified Status: Acute Assessment and Plan: Resolved Plan DVT prophylaxis Lovenox Code status full code Nutrition to feed Additional Plan DVT prophylaxis -SCDs, no chemoprophylaxis due to GI bleed, anemia Stress ulcer prophylaxis -PPI Nutrition-tube feeds at 20 mL/hr, tolerating okay, not at goal Code Status - Full Code Subjective Date/time seen: 06/24/22 11:18 Intubated. Does would open his eyes to stimulation and does follow some commands. Exam Narrative: General: intubated and on mechanical ventilation in no acute distress HEENT: Pupils equal and reactive, ETT in place, sclera is clear Lungs/Chest: Trachea central Coarse BS B/L, bilateral rales, decreased breath sounds at bases, mild inspiratory stridor Cardiac: Regular sinus rate and rhythm Abdomen: Soft, nontender, nondistended, decreased bowel soun
--- NOTE | 2022-06-24 12:21 | P.NEURO_ITS ---
Neurology EEG Report General Information Date of Study: 06/23/22 TEST EEG DIAGNOSIS altered mental status CONDITION OF RECORDING comatose with no sedation EEG NUMBER [id number] EEG DESCRIPTION absence of the normal background rhythm , low-voltage beta activity seen posteriorly admixed with 3 to 4 hertz per 2nd delta activity. bilateral symmetrical sleep activity seen with intermittent decrement in the amplitude lasting for 3 to 4 seconds admixed with 3 to 4 hertz per 2nd delta activity. Hy perventilation not done. Photic stimulation not done. Non paroxysmal. Nonfocal. Nonlateralizing. IMPRESSION abnormal record, due to the absence of normal background rhythm, due to the presence of bihemispheric excessive amount of theta and delta activity seen, and due to the presence of intermittent decrement in the amplitude of the cortical activity. These abnormalities are suggestive of underlying organic a metabolic encephalopathy without evidence of seizures discharge clinical correlation recommended. This EEG is not suggestive of absence of the cerebral activity
[2022-06-24 12:47] LABS: Glucose Point of Care 187 mg/dl (65-105)
--- NOTE | 2022-06-24 14:13 | P.PNNP_ITS ---
Progress Note: A&P Assessment and Plan (1) End stage renal disease: Code(s): N18.6 - End stage renal disease Status: Chronic Assessment and Plan: * HD today (unable to treat yesterday due to emergency dialysis cases) and resume M/W/F schedule next week * monitor electrolytes, clearance, and volume status (2) Cardiac arrest: Code(s): I46.9 - Cardiac arrest, cause unspecified Status: Acute Assessment and Plan: * exact etiology not clear * suspicion falls on use of propofol for procedure * however, other factors could be responsible including worsening anemia, aspiration, respiratory acidosis...etc * Cardiology recommendations notes * most recent Echo noted (3) Acute respiratory failure: Code(s): J96.00 - Acute respiratory failure, unspecified whether with hypoxia or hypercapnia Status: Acute Assessment and Plan: * secondary to cardiac arrest initially * failed trial of extubation -- re-intubated today due to altered mental status, stridor, and inability to protect airway * continue fluid removal with dialysis to optimize volume status * will likely need tracheostomy (4) GI bleed: Code(s): K92.2 - Gastrointestinal hemorrhage, unspecified Status: Acute Assessment and Plan: * s/p EGD (on 06/12/22) with small ulcer which was not bleeding, gastritis and hiatal hernia * PRBC transfusion per protocol * Epogen with HD * follow trend of H/H (5) Hypotension: Code(s): I95.9 - Hypotension, unspecified Status: Acute Assessment and Plan: * has a chronic component of hypotension at baseline (presumably secondary to his cardiomyopathy) * blood/urine/sputum cultures negative to date * has been requiring levophed during dialysis treatments only * follow trend of hemodynamics (6) Acute on chronic combined systolic and diastolic CHF (congestive heart failure): Code(s): I50.43 - Acute on chronic combined systolic (congestive) and diastolic (congestive) heart failure Status: Acute Assessment and Plan: * push fluid removal with dialysis * limiting factor is his hemodynamics * recent Echo noted (7) Diabetes: Code(s): E11.9 - Type 2 diabetes mellitus without complications Status: Chronic Assessment and Plan: * follow accuchecks * on SSI Will continue to follow. Subjective Date/time seen: 06/24/22 14:13 Tolerating dialysis treatment at the time of my visit (seen on HD at 2:00pm); remain intubated and on mechanical ventilation; no other acute issues/events overnight or earlier this AM. Exam Narrative: General: WD/WN male in NAD; intubated Heart: normal S1 and S2; no rub Lungs: coarse breath sounds throughout Abdomen: soft, nontender, nondistended, positive bowel sounds Extremities: no cyanosis or clubbing; 1+ edema Skin: no nodules Objective Data Vital Signs Vital Signs: Vital Signs Temp Pulse Resp BP Pulse Ox O2 Del Method O2 Flow Rate 06/24/22 13:40 35.8 C L 79 11 L 136/107 H 100 06/24/22 13:50 78 127/62 06/24/22 12:00 79 06/24/22 10:00 79 06/24/22 08:00 81 06/24/22 12:00 81 10 L 98 Mechanical Ventilation 35 06/24/22 12:00 36.4 C 62 10 L 116/63 98 06/24/22 10:00 36.6 C 79 10 L 123/61 97 06/24/22 08:00 36.6 C 81 1
--- NOTE | 2022-06-24 14:13 | PM.PNNEP ---
Progress Note: A&P Assessment and Plan (1) End stage renal disease: Code(s): N18.6 - End stage renal disease Status: Chronic Assessment and Plan: HD today (unable to treat yesterday due to emergency dialysis cases) and resume M/W/F schedule next week monitor electrolytes, clearance, and volume status (2) Cardiac arrest: Code(s): I46.9 - Cardiac arrest, cause unspecified Status: Acute Assessment and Plan: exact etiology not clear suspicion falls on use of propofol for procedure however, other factors could be responsible including worsening anemia, aspiration, respiratory acidosis...etc Cardiology recommendations notes most recent Echo noted (3) Acute respiratory failure: Code(s): J96.00 - Acute respiratory failure, unspecified whether with hypoxia or hypercapnia Status: Acute Assessment and Plan: secondary to cardiac arrest initially failed trial of extubation -- re-intubated today due to altered mental status, stridor, and inability to protect airway continue fluid removal with dialysis to optimize volume status will likely need tracheostomy (4) GI bleed: Code(s): K92.2 - Gastrointestinal hemorrhage, unspecified Status: Acute Assessment and Plan: s/p EGD (on 06/12/22) with small ulcer which was not bleeding, gastritis and hiatal hernia PRBC transfusion per protocol Epogen with HD follow trend of H/H (5) Hypotension: Code(s): I95.9 - Hypotension, unspecified Status: Acute Assessment and Plan: has a chronic component of hypotension at baseline (presumably secondary to his cardiomyopathy) blood/urine/sputum cultures negative to date has been requiring levophed during dialysis treatments only follow trend of hemodynamics (6) Acute on chronic combined systolic and diastolic CHF (congestive heart failure): Code(s): I50.43 - Acute on chronic combined systolic (congestive) and diastolic (congestive) heart failure Status: Acute Assessment and Plan: push fluid removal with dialysis limiting factor is his hemodynamics recent Echo noted (7) Diabetes: Code(s): E11.9 - Type 2 diabetes mellitus without complications Status: Chronic Assessment and Plan: follow accuchecks on SSI Will continue to follow. Subjective Date/time seen: 06/24/22 14:13 Tolerating dialysis treatment at the time of my visit (seen on HD at 2:00pm); remain intubated and on mechanical ventilation; no other acute issues/events overnight or earlier this AM. Exam Narrative: General: WD/WN male in NAD; intubated Heart: normal S1 and S2; no rub Lungs: coarse breath sounds throughout Abdomen: soft, nontender, nondistended, positive bowel sounds Extremities: no cyanosis or clubbing; 1+ edema Skin: no nodules Objective Data Vital Signs Vital Signs: Vital Signs Temp Pulse Resp BP Pulse Ox O2 Del Method O2 Flow Rate 06/24/22 13:40 35.8 C L 79 11 L 136/107 H 100 06/24/22 13:50 78 127/62 06/24/22 12:00 79 06/24/22 10:00 79 06/24/22 08:00 81 06/24/22 12:00 81 10 L 98 Mechanical Ventilation 35 06/24/22 12:00 36.4 C 62 10 L 116/63 98 06/24/22 10:00 36.6 C 79 10 L 123/61 97 06/24/22 08:00 36.6 C 81 10 L 120/70 98 06/24/22 08:00 96 Mechanical Ventilation 35 06/24/22 10:21 82 98 Mechanical Ventilation 06/24/22 07:54 87 99 Mechanical Ventilation 06/24/22 06:00 36.9 C 83 16 118/65 100 06/24/22 06:00 60 06/24/22 05:50 83 98 Mechanical Ventilation 06/24/22 02:15 94 95 Mechanical Ventilation 06/24/22 04:00 37.1 C 75 15 106/58 L 98 06/24/22 02:00 37.2 C 71 14 122/57 L 100 06/24/22 04:00 74 06/24/22 02:00 71 06/24/22 04:00 97 Mechanical Ventilation 35 06/24/22 00:00 98 Mechanical Ventilation 35 06/23/22 20:00 99 Mechan
[2022-06-24] MEDS: SODIUM CHLORIDE 0.9% IV 1,000 ML 999 ML IV CONT (14:24)
--- NOTE | 2022-06-24 15:06 | PC.NURSE ---
1505- Sister, dog, and niece stopped by and took patients tablet.
[2022-06-24] MEDS: CEFEPIME 0.5 GM in DEXTROSE 5% IN WATER 50 ML IVPB (17:33)
[2022-06-24 18:16] LABS: Vancomycin Random 12.8 ug/mL (10-20)
[2022-06-24 18:21] LABS: Glucose Point of Care 161 mg/dl (65-105)
[2022-06-24 18:22] LABS: Glucose Point of Care 186 mg/dl (65-105)
[2022-06-24] MEDS: SENNA/DOCUSATE SODIUM TABLET 1 TAB PO (20:17)
[2022-06-24] MEDS: CHOLECALCIFEROL 1,000 UNITS TABLET 5000 UNITS PO (20:17)
[2022-06-25] VITALS (18 sets, daily range): BP systolic 105–140; BP diastolic 45–96; PULSE 65–99; RESP 13–28; TEMP 36–37.5; O2SAT 97–100
[2022-06-25 00:22] LABS: Glucose Point of Care 132 mg/dl (65-105)
[2022-06-25 04:58] LABS: Hematocrit 28.2 % (42.0-52.0); Hemoglobin 8.4 g/dL (14.0-18.0); Mean Corpuscular HGB Conc 29.8 g/dl (32-36); Mean Corpuscular Hemoglobin 29.6 pg (26-34); Mean Corpuscular Volume 99.3 fl (80-100); Mean Platelet Volume 10.7 fl (7.4-10.4); Platelet Count Result 245 k/mm3 (150-375); Red Blood Count 2.84 M/mm3 (4.6-6.20); Red Cell Distribution Width 17.1 % (11.5-14.5); White Blood Count 13.7 K/mm3 (4.5-10.0)
[2022-06-25 04:58] LABS: Alanine Aminotransferase 24 U/L (6-50); Albumin Level 3.3 g/dL (3.5-5.1); Alkaline Phosphatase 159 U/L (38-126); Anion Gap 10 mmol/L (8-16); Aspartate Amino Transferase 47 U/L (17-59); Bilirubin,Total 0.3 mg/dL (0.2-1.3); Blood Urea Nitrogen 42 mg/dL (9-20); Calcium 8.8 mg/dL (8.4-10.2); Carbon Dioxide 29 mmol/L (22-30); Chloride 95 mmol/L (98-107); Estimated CRCL calculation 18 ml/min; Estimated Glomerular Filt Rate 21; Glucose 143 mg/dL (65-110); Phosphorus 2.8 mg/dL (2.5-4.5); Potassium 3.6 mmol/L (3.4-5.0); Sodium 134 mmol/L (137-145)
[2022-06-25 05:17] LABS: Alveolar/Arterial O2 Gradient 29.3 mmHg; Base Excess ABG 2.8 mEq/l (+/-2.0); Carboxyhemoglobin 0.3 % THb (0-2.0); Fractional Inspired Oxygen 30 %; HCO3 ABG 27.1 mEq/l (22.0-26.0); Methemoglobin ABG 0.4 %THb (0-1.5); Oxygen Content ABG 17.2 %vol (16.0-22.0); Oxygen Saturation ABG 98.8 % (95.0-100.0); Oxyhemoglobin 97.5 % THb (90.0-100.0); PCO2 ABG 40.7 mmHg (35.0-45.0); PO2 ABG 136.8 mmHg (80.0-100.0); PO2 FiO2 Ratio Arterial Blood 4.56 %; Reduced Hemoglobin 1.8 %THb (0-5.0); Total Hemoglobin 12.4 g/dL (12.0-18.0); pH ABG 7.441 (7.350-7.450)
[2022-06-25 05:19] LABS: Arterial Blood Gas Vent Mode CMV; Arterial Blood Gas Ventilator rate 16 /MIN; Device VENTILATOR; Modified Allen's Test Pass; Site Drawn RIGHT RADIAL
[2022-06-25 05:20] LABS: Arterial Blood Gas PEEP 8 cmH2O; Arterial Blood Gas Tidal Volume 400 ml
[2022-06-25] MEDS: CENTRAL LINE FLUSH 10 ML IV PUSH ×4 (06:23→21:59)
[2022-06-25] MEDS: LEVOTHYROXINE SODIUM 75 MCG TABLET PO (06:23)
--- NOTE | 2022-06-25 08:10 | ECG_ITS ---
Measurements Intervals [place] Rate: 81 P: 22 NM: 159 QRS: 36 QRSD: 150 T: 201 QT: 412 QTc: 481 Interpretive Statements SINUS RHYTHM WITH FREQUENT VENTRICULAR PREMATURE COMPLEXES INTRAVENTRICULAR CONDUCTION DELAY STA AND T-WAVE ABNORMALITY LATERAL LEADS CONSIDER MYOCARDIAL ISCHEMIA ABNORMAL ECG COMPARED TO ECG 06/17/2022 10:06:16 HEART RATE HAS DECREASED Electronically Signed On 06-25-2022 14:40:42 CDT by Blas Hinton M.D.
[2022-06-25] MEDS: OPTI-GEN TAB 1 TABLET PO ×2 (08:18→21:58)
[2022-06-25] MEDS: PANTOPRAZOLE SODIUM IV 40 MG VIAL IV PUSH ×2 (08:18→21:59)
[2022-06-25] MEDS: MINERAL OIL/WHITE PETROLATUM OINTMENT 1 APPLIC EACH EYE ×2 (08:18→21:58)
[2022-06-25] MEDS: ENOXAPARIN 30 MG/0.3 ML SYRINGE SUB-Q (08:18)
[2022-06-25] MEDS: ATORVASTATIN 40 MG TABLET 80 MG PO (08:18)
[2022-06-25] MEDS: POTASSIUM CHLORIDE 20 MEQ PACKET (FOR LIQUID) 40 MEQ FEED TUBE (08:20)
[2022-06-25] MEDS: modafiniL (*CRX) 200 MG TABLET FEED TUBE (08:20)
--- NOTE | 2022-06-25 09:45 | WPDINTPN ---
Progress Note: A&P Assessment and Plan (1) Acute respiratory failure: Code(s): J96.00 - Acute respiratory failure, unspecified whether with hypoxia or hypercapnia Status: Acute Assessment and Plan: Respiratory failure likely related to cardiac arrest, generalized weakness debility, pulmonary edema and encephalopathy -initial intubated 06/12/2022 -weaning has been unsuccessful as patient is too drowsy, gets apneic, has high RSBI on trial -06/20: Thick ETT secretions, febrile, elevated WBC count, worsening chest x-ray -patient was started patient on cefepime renally dosed and vancomycin (06/20) 06/20 CT chest noncontrast 1. Bilateral airspace disease, left greater than right, which may represent edema and/or pneumonia. Left basilar airspace disease has progressed since prior CT examination. 2: Moderate left and small right pleural effusions. 3:? Moderate cardiomegaly. 4:? Ascites. Additional fluid was removed yesterday by hemodialysis and patient is scheduled for another dialysis session today 06/21 patient underwent diagnostic and therapeutic thoracentesis and 700 mL fluid was removed 06/22 extubated. 06/23 reintubated as patient unable to clear his secretions, stridor Chest x-ray reviewed Continue hemodialysis to remove fluid He has completed a course of Solu-Medrol for stridor 06/25 placed on PSV weaning trial but the patient needed pressure support of 15/8 for adequate RSBI. Continue as tolerated. He will likely need tracheostomy Status post Levaquin, Flagyl x7 days for possible aspiration pneumonia. Continue cefepime and vancomycin (started 06/20) (2) End-stage renal disease on hemodialysis: Code(s): N18.6 - End stage renal disease; Z99.2 - Dependence on renal dialysis Status: Acute Assessment and Plan: Patient has a history of end-stage renal disease and started on hemodialysis in April 2022 -patient does require Levophed briefly with dialysis -dialysis per Nephrology which is Sunday at this time (3) Cardiac arrest: Code(s): I46.9 - Cardiac arrest, cause unspecified Status: Acute Assessment and Plan: Exact etiology not clear but patient has significant coronary artery disease and cardiomyopathy, he received propofol for sedation which itself can cause bradycardia, hypoventilation from sedation during the procedure is another possibility which could have led to respiratory acidosis, respiratory failure, bradycardia and PEA arrest -Worsening anemia could be another contributing factor as his hemoglobin is 6.9 -Aspiration is also possibility although patient was NPO prior to the procedure because of his GI bleed and for EGD 06/17/2022: Patient in the brief cardiac arrest with 1 round of CPR with ROSC, No medications were given. Likely secondary to rescue cath suction and possibly vasovagal as he bradycardic and then lost his pulse. -patient has been requiring Levophed on and off for for dialysis -appreciate cardiology following the patient -patient's pacemaker rate was increased to 60 -06/12/2022: Cardiac echocardiogram: LV systolic function is severely reduced with EF of 25-30%, grade 3 diastolic dysfunction, RV systolic function is moderately reduced, mild mitral valve regurg, mild tricuspid valve regurg, moderate pulmonary hypertension with RVSP of 49 mmHg. (4) GI bleed: Code(s): K92.2 - Gastrointestinal hemorrhage, unspecified Status: Acute Assessment and Plan: 06/12 EGD showed small ulcer which was not bleeding and gastritis, hiatal hernia PPI IV q.12 hours 06/12 Hemoglobin was 6.9, transfuse1 unit of PRBC Monitor hemoglobin and transfuse additional units as needed Therapeutic Anticoagulation on hold although he has been resumed on prophylactic dose (5) DVT (deep venous thrombosis): Code(s): I82.409 - Acute embolism and thrombosis of unspecified deep veins of unspecified lower extremity Status: Acute Assessment and Plan: [place]
--- NOTE | 2022-06-25 10:55 | PM.IMPN ---
Progress Note: A&P Assessment and Plan (1) Acute respiratory failure: Code(s): J96.00 - Acute respiratory failure, unspecified whether with hypoxia or hypercapnia Status: Acute Assessment and Plan: Respiratory failure likely related to cardiac arrest, generalized weakness debility, pulmonary edema and encephalopathy -manage per ICU (2) End-stage renal disease on hemodialysis: Code(s): N18.6 - End stage renal disease; Z99.2 - Dependence on renal dialysis Status: Acute Assessment and Plan: Patient has a history of end-stage renal disease and started on hemodialysis in April 2022 -patient does require Levophed briefly with dialysis -dialysis per Nephrology which is Sunday at this time (3) Cardiac arrest: Code(s): I46.9 - Cardiac arrest, cause unspecified Status: Acute Assessment and Plan: Exact etiology not clear but patient has significant coronary artery disease and cardiomyopathy, he received propofol for sedation which itself can cause bradycardia, hypoventilation from sedation during the procedure is another possibility which could have led to respiratory acidosis, respiratory failure, bradycardia and PEA arrest (4) GI bleed: Code(s): K92.2 - Gastrointestinal hemorrhage, unspecified Status: Acute Assessment and Plan: Monitor hemoglobin and transfuse additional units as needed Therapeutic Anticoagulation on hold although he has been resumed on prophylactic dose (5) DVT (deep venous thrombosis): Code(s): I82.409 - Acute embolism and thrombosis of unspecified deep veins of unspecified lower extremity Status: Acute Assessment and Plan: 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 Anticoagulation held due to GI bleed 06/12 venous Doppler of right lower extremity does not show any DVT at this time On prophylactic dose Lovenox at this time (6) Diabetes: Code(s): E11.9 - Type 2 diabetes mellitus without complications Status: Chronic Assessment and Plan: Continue sliding scale insulin Accu-Cheks Continue to Hold Lantus (7) Acute on chronic combined systolic and diastolic CHF (congestive heart failure): Code(s): I50.43 - Acute on chronic combined systolic (congestive) and diastolic (congestive) heart failure Status: Acute Assessment and Plan: Echocardiogram as above Receiving regular dialysis (8) Hypotension: Code(s): I95.9 - Hypotension, unspecified Status: Acute Assessment and Plan: Sadaf for ICU, pressors as needed (9) Ileus: Code(s): K56.7 - Ileus, unspecified Status: Acute Assessment and Plan: Resolved (10) Hypokalemia: Code(s): E87.6 - Hypokalemia Status: Acute Assessment and Plan: Resolved Subjective Date/time seen: 06/25/22 10:55 Intubated Exam Narrative: General: intubated and on mechanical ventilation in no acute distress HEENT: Pupils equal and reactive, ETT in place, sclera is clear Lungs/Chest: Trachea central Coarse BS B/L, bilateral rales, decreased breath sounds at bases, mild inspiratory stridor Cardiac: Regular sinus rate and rhythm Abdomen: Soft, nontender, nondistended, decreased bowel sounds. Old surgical scars noted in the midline and right inguinal area Extremities: Bilateral lower extremity skin wrinkling, continues to have 1+ pitting edema present on both lower extremities : Golden in place Neurologic: Patient is drowsy, opens eyes on calling his name, follows commands intermittently and inconsistently with all 4 extremities, he appears to be using right side more than the left, PERRL, ptosis of the left eye Psych: Unable to assess at this time Objective Data Vital Signs Vital Signs: Vital Signs - 24 hr 06/24/22 12:00 06/24/22 12:00 06/24/22 12:00 Temperature 97.6 F Pulse Rate 62 81 79 Respiratory Rate 10 L 10 L Blood Pressure 116/63 Pulse Oximetry 98 98 Oxy
--- NOTE | 2022-06-25 11:54 | P.PNNP_ITS ---
Progress Note: A&P Assessment and Plan (1) End stage renal disease: Code(s): N18.6 - End stage renal disease Status: Chronic Assessment and Plan: * HD yesterday (unable to treat on Sunday due to emergency dialysis cases) and resume M/W/ schedule tomorrow * monitor electrolytes, clearance, and volume status (2) Cardiac arrest: Code(s): I46.9 - Cardiac arrest, cause unspecified Status: Acute Assessment and Plan: * exact etiology not clear * suspicion falls on use of propofol for procedure * however, other factors could be responsible including worsening anemia, aspiration, respiratory acidosis...etc * Cardiology recommendations notes * most recent Echo noted (3) Acute respiratory failure: Code(s): J96.00 - Acute respiratory failure, unspecified whether with hypoxia or hypercapnia Status: Acute Assessment and Plan: * secondary to cardiac arrest initially * failed trial of extubation -- re-intubated (on 06/23/22) due to altered mental status, stridor, inability to clear secretions and protect airway * continue fluid removal with dialysis to optimize volume status * suspect he may need tracheostomy (4) GI bleed: Code(s): K92.2 - Gastrointestinal hemorrhage, unspecified Status: Acute Assessment and Plan: * s/p EGD (on 06/12/22) with small ulcer which was not bleeding, gastritis and hiatal hernia * PRBC transfusion per protocol * Epogen with HD * follow trend of H/H (5) Hypotension: Code(s): I95.9 - Hypotension, unspecified Status: Acute Assessment and Plan: * has a chronic component of hypotension at baseline (presumably secondary to his cardiomyopathy) * blood/urine/sputum cultures negative to date * has been requiring levophed during dialysis treatments only * follow trend of hemodynamics (6) Acute on chronic combined systolic and diastolic CHF (congestive heart failure): Code(s): I50.43 - Acute on chronic combined systolic (congestive) and diastolic (congestive) heart failure Status: Acute Assessment and Plan: * push fluid removal with dialysis * limiting factor is his hemodynamics * recent Echo noted (7) Diabetes: Code(s): E11.9 - Type 2 diabetes mellitus without complications Status: Chronic Assessment and Plan: * follow accuchecks * on SSI Will continue to follow. Subjective Date/time seen: 06/25/22 11:54 Tolerated dialysis treatment yesterday with ~ 3L fluid removal; remains intubated and on ventilator support; still drowsy/confused at times; following commands inconsistently; no issues/events overnight or earlier this morning. Exam Narrative: General: WD/WN male in NAD; intubated Heart: normal S1 and S2; no rub Lungs: coarse breath sounds throughout Abdomen: soft, nontender, nondistended, positive bowel sounds Extremities: no cyanosis or clubbing; 1+ edema Skin: warm and dry Objective Data Vital Signs Vital Signs: Vital Signs Temp Pulse Resp BP Pulse Ox O2 Del Method O2 Flow Rate 06/25/22 11:08 97 99 Mechanical Ventilation 06/25/22 10:00 37.1 C 73 13 133/60 99 06/25/22 10:00 73 06/25/22 08:00 06/25/22 08:00 36.0 C L 85 20 123/67 100 06/25/22 08:00 85 06/25/22 08:00 85 100 Mechanical Ventilation 30 08
--- NOTE | 2022-06-25 11:54 | PM.PNNEP ---
Progress Note: A&P Assessment and Plan (1) End stage renal disease: Code(s): N18.6 - End stage renal disease Status: Chronic Assessment and Plan: HD yesterday (unable to treat on Sunday due to emergency dialysis cases) and resume M// schedule tomorrow monitor electrolytes, clearance, and volume status (2) Cardiac arrest: Code(s): I46.9 - Cardiac arrest, cause unspecified Status: Acute Assessment and Plan: exact etiology not clear suspicion falls on use of propofol for procedure however, other factors could be responsible including worsening anemia, aspiration, respiratory acidosis...etc Cardiology recommendations notes most recent Echo noted (3) Acute respiratory failure: Code(s): J96.00 - Acute respiratory failure, unspecified whether with hypoxia or hypercapnia Status: Acute Assessment and Plan: secondary to cardiac arrest initially failed trial of extubation -- re-intubated (on 06/23/22) due to altered mental status, stridor, inability to clear secretions and protect airway continue fluid removal with dialysis to optimize volume status suspect he may need tracheostomy (4) GI bleed: Code(s): K92.2 - Gastrointestinal hemorrhage, unspecified Status: Acute Assessment and Plan: s/p EGD (on 06/12/22) with small ulcer which was not bleeding, gastritis and hiatal hernia PRBC transfusion per protocol Epogen with HD follow trend of H/H (5) Hypotension: Code(s): I95.9 - Hypotension, unspecified Status: Acute Assessment and Plan: has a chronic component of hypotension at baseline (presumably secondary to his cardiomyopathy) blood/urine/sputum cultures negative to date has been requiring levophed during dialysis treatments only follow trend of hemodynamics (6) Acute on chronic combined systolic and diastolic CHF (congestive heart failure): Code(s): I50.43 - Acute on chronic combined systolic (congestive) and diastolic (congestive) heart failure Status: Acute Assessment and Plan: push fluid removal with dialysis limiting factor is his hemodynamics recent Echo noted (7) Diabetes: Code(s): E11.9 - Type 2 diabetes mellitus without complications Status: Chronic Assessment and Plan: follow accuchecks on SSI Will continue to follow. Subjective Date/time seen: 06/25/22 11:54 Tolerated dialysis treatment yesterday with ~ 3L fluid removal; remains intubated and on ventilator support; still drowsy/confused at times; following commands inconsistently; no issues/events overnight or earlier this morning. Exam Narrative: General: WD/WN male in NAD; intubated Heart: normal S1 and S2; no rub Lungs: coarse breath sounds throughout Abdomen: soft, nontender, nondistended, positive bowel sounds Extremities: no cyanosis or clubbing; 1+ edema Skin: warm and dry Objective Data Vital Signs Vital Signs: Vital Signs Temp Pulse Resp BP Pulse Ox O2 Del Method O2 Flow Rate 06/25/22 11:08 97 99 Mechanical Ventilation 06/25/22 10:00 37.1 C 73 13 133/60 99 06/25/22 10:00 73 06/25/22 08:00 06/25/22 08:00 36.0 C L 85 20 123/67 100 06/25/22 08:00 85 06/25/22 08:00 85 100 Mechanical Ventilation 06/25/22 08:22 84 100 Mechanical Ventilation 06/25/22 06:00 37.2 C 79 16 105/72 100 06/25/22 06:00 79 06/25/22 06:00 91 99 Mechanical Ventilation 06/25/22 04:00 37.3 C 89 19 140/96 H 100 06/25/22 02:00 37.3 C 75 16 110/85 99 06/25/22 04:00 88 06/25/22 04:00 99 Mechanical Ventilation 06/25/22 04:00 06/25/22 02:00 83 06/25/22 00:00 37.5 C 85 19 119/68 99 06/25/22 00:00 86 06/25/22 00:00 99 Mechanical Ventilation 06/25/22 00:00 06/24/22 23:50 83 99 Mechanical Ventilation 06/24/22 22:00 92 08/1
[2022-06-25 13:16] LABS: Glucose Point of Care 140 mg/dl (65-105)
[2022-06-25] MEDS: CEFEPIME 0.5 GM in DEXTROSE 5% IN WATER 50 ML IVPB (17:57)
[2022-06-25 18:51] LABS: Glucose Point of Care 110 mg/dl (65-105)
[2022-06-25] MEDS: SENNA/DOCUSATE SODIUM TABLET 1 TAB PO (21:58)
[2022-06-25] MEDS: CHOLECALCIFEROL 1,000 UNITS TABLET 5000 UNITS PO (21:59)
[2022-06-26] VITALS (36 sets, daily range): BP systolic 99–133; BP diastolic 45–99; PULSE 71–112; RESP 13–25; TEMP 36.3–37.1; O2SAT 93–100
[2022-06-26] LABS: Glucose Point of Care 127 mg/dl (65-105)
[2022-06-26 04:37] LABS: Hematocrit 27.5 % (42.0-52.0); Mean Corpuscular HGB Conc 29.1 g/dl (32-36); Mean Corpuscular Hemoglobin 29.2 pg (26-34); Mean Corpuscular Volume 100.4 fl (80-100); Platelet Count Result 216 k/mm3 (150-375); Red Blood Count 2.74 M/mm3 (4.6-6.20); Red Cell Distribution Width 17.2 % (11.5-14.5); White Blood Count 13.2 K/mm3 (4.5-10.0)
[2022-06-26 04:53] LABS: Alanine Aminotransferase 28 U/L (6-50); Alkaline Phosphatase 154 U/L (38-126); Anion Gap 9 mmol/L (8-16); Aspartate Amino Transferase 60 U/L (17-59); Bilirubin,Total 0.3 mg/dL (0.2-1.3); Blood Urea Nitrogen 65 mg/dL (9-20); Calcium 8.7 mg/dL (8.4-10.2); Carbon Dioxide 30 mmol/L (22-30); Chloride 96 mmol/L (98-107); Estimated CRCL calculation 14 ml/min; Estimated Glomerular Filt Rate 15; Glucose 117 mg/dL (65-110); Magnesium 2.1 mg/dL (1.6-2.3); Phosphorus 2.9 mg/dL (2.5-4.5); Sodium 135 mmol/L (137-145)
[2022-06-26 05:14] LABS: Alveolar/Arterial O2 Gradient 49.9 mmHg; Base Excess ABG 0.9 mEq/l (+/-2.0); Carboxyhemoglobin 0.3 % THb (0-2.0); Fractional Inspired Oxygen 30 %; HCO3 ABG 25.4 mEq/l (22.0-26.0); Methemoglobin ABG 0.3 %THb (0-1.5); Oxygen Content ABG 12.2 %vol (16.0-22.0); Oxygen Saturation ABG 98.3 % (95.0-100.0); Oxyhemoglobin 97.1 % THb (90.0-100.0); PCO2 ABG 40.3 mmHg (35.0-45.0); PO2 ABG 116.7 mmHg (80.0-100.0); PO2 FiO2 Ratio Arterial Blood 3.89 %; Reduced Hemoglobin 2.3 %THb (0-5.0); Site Drawn RIGHT RADIAL; Total Hemoglobin 8.8 g/dL (12.0-18.0); pH ABG 7.418 (7.350-7.450)
[2022-06-26 05:15] LABS: Arterial Blood Gas PEEP 8 cmH2O; Arterial Blood Gas Tidal Volume 400 ml; Arterial Blood Gas Vent Mode CMV; Arterial Blood Gas Ventilator rate 16 /MIN; Device VENTILATOR; Modified Allen's Test Pass
[2022-06-26] MEDS: CENTRAL LINE FLUSH 10 ML IV PUSH ×3 (07:22→20:00)
[2022-06-26] MEDS: LEVOTHYROXINE SODIUM 75 MCG TABLET PO (07:22)
[2022-06-26] MEDS: OPTI-GEN TAB 1 TABLET PO ×2 (08:14→19:59)
[2022-06-26] MEDS: modafiniL (*CRX) 200 MG TABLET FEED TUBE (08:14)
[2022-06-26] MEDS: ASPIRIN 325 MG TABLET FEED TUBE (08:14)
[2022-06-26] MEDS: ATORVASTATIN 40 MG TABLET 80 MG PO (08:14)
[2022-06-26] MEDS: ENOXAPARIN 30 MG/0.3 ML SYRINGE SUB-Q (08:15)
[2022-06-26] MEDS: MINERAL OIL/WHITE PETROLATUM OINTMENT 1 APPLIC EACH EYE ×2 (08:15→19:59)
[2022-06-26] MEDS: PANTOPRAZOLE SODIUM IV 40 MG VIAL IV PUSH ×2 (08:15→20:00)
--- NOTE | 2022-06-26 09:08 | WPDINTPN ---
Progress Note: A&P Assessment and Plan (1) Acute respiratory failure: Code(s): J96.00 - Acute respiratory failure, unspecified whether with hypoxia or hypercapnia Status: Acute Assessment and Plan: Respiratory failure likely related to cardiac arrest, generalized weakness debility, pulmonary edema and encephalopathy -initial intubated 06/12/2022 -weaning has been unsuccessful as patient is too drowsy, gets apneic, has high RSBI on trial -06/20: Thick ETT secretions, febrile, elevated WBC count, worsening chest x-ray -patient was started patient on cefepime renally dosed and vancomycin (06/20) 06/20 CT chest noncontrast 1. Bilateral airspace disease, left greater than right, which may represent edema and/or pneumonia. Left basilar airspace disease has progressed since prior CT examination. 2: Moderate left and small right pleural effusions. 3:? Moderate cardiomegaly. 4:? Ascites. Additional fluid was removed yesterday by hemodialysis and patient is scheduled for another dialysis session today 06/21 patient underwent diagnostic and therapeutic thoracentesis and 700 mL fluid was removed 06/22 extubated. 06/23 reintubated as patient unable to clear his secretions, stridor Chest x-ray reviewed Continue hemodialysis to remove fluid He has completed a course of Solu-Medrol for stridor 06/25 placed on PSV weaning trial but the patient needed pressure support of 15/8 for adequate RSBI. He tolerated for few hours 06/26 PSV 15/8 as tolerated. Consulted ENT for tracheostomy Status post Levaquin, Flagyl x7 days for possible aspiration pneumonia. Continue cefepime and vancomycin (started 06/20) (2) End-stage renal disease on hemodialysis: Code(s): N18.6 - End stage renal disease; Z99.2 - Dependence on renal dialysis Status: Acute Assessment and Plan: Patient has a history of end-stage renal disease and started on hemodialysis in April 2022 -patient does require Levophed briefly with dialysis -dialysis per Nephrology which is Sunday at this time (3) Cardiac arrest: Code(s): I46.9 - Cardiac arrest, cause unspecified Status: Acute Assessment and Plan: Exact etiology not clear but patient has significant coronary artery disease and cardiomyopathy, he received propofol for sedation which itself can cause bradycardia, hypoventilation from sedation during the procedure is another possibility which could have led to respiratory acidosis, respiratory failure, bradycardia and PEA arrest -Worsening anemia could be another contributing factor as his hemoglobin is 6.9 -Aspiration is also possibility although patient was NPO prior to the procedure because of his GI bleed and for EGD 06/17/2022: Patient in the brief cardiac arrest with 1 round of CPR with ROSC, No medications were given. Likely secondary to rescue cath suction and possibly vasovagal as he bradycardic and then lost his pulse. -patient has been requiring Levophed on and off for for dialysis -appreciate cardiology following the patient -patient's pacemaker rate was increased to 60 -06/12/2022: Cardiac echocardiogram: LV systolic function is severely reduced with EF of 25-30%, grade 3 diastolic dysfunction, RV systolic function is moderately reduced, mild mitral valve regurg, mild tricuspid valve regurg, moderate pulmonary hypertension with RVSP of 49 mmHg. (4) GI bleed: Code(s): K92.2 - Gastrointestinal hemorrhage, unspecified Status: Acute Assessment and Plan: 06/12 EGD showed small ulcer which was not bleeding and gastritis, hiatal hernia PPI IV q.12 hours 06/12 Hemoglobin was 6.9, transfuse1 unit of PRBC Monitor hemoglobin and transfuse additional units as needed Therapeutic Anticoagulation on hold although he has been resumed on prophylactic dose Consult GI for PEG tube (5) DVT (deep venous thrombosis): Code(s): I82.409 - Acute embolism and thrombosis of unspecified deep veins of unspecified lower extremi
--- NOTE | 2022-06-26 10:31 | PM.IMPN ---
Progress Note: A&P Assessment and Plan (1) Acute respiratory failure: Code(s): J96.00 - Acute respiratory failure, unspecified whether with hypoxia or hypercapnia Status: Acute Assessment and Plan: Respiratory failure likely related to cardiac arrest, generalized weakness debility, pulmonary edema and encephalopathy -initial intubated 06/12/2022 -weaning has been unsuccessful as patient is too drowsy, gets apneic, has high RSBI on trial -06/20: Thick ETT secretions, febrile, elevated WBC count, worsening chest x-ray -currently on cefepime -question plan for trach (2) End-stage renal disease on hemodialysis: Code(s): N18.6 - End stage renal disease; Z99.2 - Dependence on renal dialysis Status: Acute Assessment and Plan: Patient has a history of end-stage renal disease and started on hemodialysis in April 2022 -patient does require Levophed briefly with dialysis -dialysis per Nephrology which is Sunday at this time (3) Cardiac arrest: Code(s): I46.9 - Cardiac arrest, cause unspecified Status: Acute Assessment and Plan: Exact etiology not clear but patient has significant coronary artery disease and cardiomyopathy, he received propofol for sedation which itself can cause bradycardia, hypoventilation from sedation during the procedure is another possibility which could have led to respiratory acidosis, respiratory failure, bradycardia and PEA arrest (4) GI bleed: Code(s): K92.2 - Gastrointestinal hemorrhage, unspecified Status: Acute Assessment and Plan: Appreciate GI input (5) DVT (deep venous thrombosis): Code(s): I82.409 - Acute embolism and thrombosis of unspecified deep veins of unspecified lower extremity Status: Acute Assessment and Plan: 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 Anticoagulation held due to GI bleed 06/12 venous Doppler of right lower extremity does not show any DVT at this time On prophylactic dose Lovenox at this time (6) Diabetes: Code(s): E11.9 - Type 2 diabetes mellitus without complications Status: Chronic Assessment and Plan: Continue sliding scale insulin Accu-Cheks Continue to Hold Lantus (7) Acute on chronic combined systolic and diastolic CHF (congestive heart failure): Code(s): I50.43 - Acute on chronic combined systolic (congestive) and diastolic (congestive) heart failure Status: Acute Assessment and Plan: Echocardiogram as above Receiving regular dialysis (8) Hypotension: Code(s): I95.9 - Hypotension, unspecified Status: Acute Assessment and Plan: Patient was hypotensive post cardiac arrest, was given 1 L of LR bolus, was briefly on Levophed, patient did get a unit of packed RBCs and Levophed was then discontinued -will continue to hold cardiac meds -06/11: Blood cultures x2 are negative so far -06/12: Urine and sputum cultures are negative -patient has been requiring Levophed on and off during dialysis only (9) Encephalopathy: Code(s): G93.40 - Encephalopathy, unspecified Status: Acute Assessment and Plan: Patient is currently unresponsive. He did receive propofol for the procedure. His Code was pretty brief as he only received 1 round of CPR and 1 dose of epinephrine hence it is unlikely the patient has developed anoxic injury. -06/13 according the night nurse, the nephew stated that the patient had received propofol for his last procedure and did not wake up for 7 days, this information that was given by the nephew -ammonia level within normal limits -TSH elevated -will increase levothyroxine dose -06/12: CT scan of the brain did not show any acute intracranial process -status post target temperature management. Rewarmed to normal body temperature at 9:00 p.m. on 06/13/2022 -06/14: Patient does follow commands intermittently but continues to be somnolent and drowsy -increase levothyroxine dose on
--- NOTE | 2022-06-26 11:16 | PCFNICU ---
ICU Rounding Note: Pt current nutrition is Nepro at 40 ml/hr. Last recorded weight is 73.8 kg, up from 80.2 kg on admit. Bowel Motility:+BM reported 06/25 Labs Reviewed:Glu 117, BUN 65, Cr 3.9,Na 135, Hgb 8.0,Hct 27.5 Meds Noted:Lipitor, Protonix, Levophed, Vit D, Synthroid Skin: WNL Additional Notes: Patient current with mechanical vent-reintubated post code during EEG. Tube feedings continue of Nepro at 40 ml/hr and tolerating. Dialysis planned for today. Trach/PEG are being discussed. Agree with tube feedings orders. Following daily in ICU rounds. Will monitor every Sunday and Sunday.
[2022-06-26 11:51] LABS: Glucose Point of Care 120 mg/dl (65-105)
--- NOTE | 2022-06-26 13:17 | WPDGIPROGNO ---
Progress Note: A&P Assessment and Plan (1) Acute respiratory failure: Code(s): J96.00 - Acute respiratory failure, unspecified whether with hypoxia or hypercapnia Status: Acute Assessment and Plan: unable to wean off, he has been intubated for several days now primary team now is planning to ask ENT for tracheostomy and will require peg placement (we can do it tomorrow) (2) Cardiac arrest with successful resuscitation: Code(s): I46.9 - Cardiac arrest, cause unspecified Status: Acute (3) Chronic combined systolic and diastolic CHF (congestive heart failure): Code(s): I50.42 - Chronic combined systolic (congestive) and diastolic (congestive) heart failure Status: Acute Assessment and Plan: treated (4) Encephalopathy: Code(s): G93.40 - Encephalopathy, unspecified Status: Acute Assessment and Plan: drowsy, also evaluated by neurology (5) Erosive gastritis: Code(s): K29.60 - Other gastritis without bleeding Status: Acute Assessment and Plan: on ppi Subjective Date/time seen: 06/26/22 13:17 Interval history: intubated, drowsy, only following limited commands. He has been tolerating tube feeding. Review of Systems Review of Systems: All systems reviewed & are unremarkable except as noted in HPI and below Exam Narrative: General: intubated and on mechanical ventilation in no acute distress HEENT: Pupils equal and reactive, ETT in place, sclera is clear Lungs/Chest: Trachea central Coarse BS B/L, bilateral rales, decreased breath sounds at bases, mild inspiratory stridor Cardiac: Regular sinus rate and rhythm Abdomen: Soft, nontender, nondistended, decreased bowel sounds. Old surgical scars noted in the midline and right inguinal area Extremities: Bilateral lower extremity skin wrinkling, continues to have 1+ pitting edema present on both lower extremities : Golden in place Neurologic: Patient is drowsy, opens eyes on calling his name, follows commands intermittently and inconsistently with all 4 extremities, he appears to be using right side more than the left especially left lower extremity does move it sometimes PERRL, ptosis of the left eye but is able to open his eyes on calling his name Psych: Unable to assess at this time Objective Data Vital Signs Vital Signs: Vital Signs - 24 hr 06/25/22 14:00 06/25/22 13:58 06/25/22 14:00 Temperature 98.6 F Pulse Rate 86 84 83 Respiratory Rate Blood Pressure 128/63 Pulse Oximetry 100 100 Oxygen Delivery Mechanical Ventilation Oxygen Flow Rate Fraction of Inspired Oxygen 30 06/25/22 17:08 06/25/22 16:00 06/25/22 16:00 Temperature Pulse Rate 79 98 80 Respiratory Rate 18 Blood Pressure Pulse Oximetry 97 98 Oxygen Delivery Mechanical Ventilation Mechanical Ventilation Oxygen Flow Rate 30 Fraction of Inspired Oxygen 30 06/25/22 16:00 06/25/22 16:00 06/25/22 18:00 Temperature 98.4 F Pulse Rate 80 78 Respiratory Rate 18 Blood Pressure 126/56 L Pulse Oximetry 98 Oxygen Delivery Oxygen Flow Rate Fraction of Inspired Oxygen 30 06/25/22 18:00 06/25/22 20:15 06/25/22 20:00 Temperature 98.5 F Pulse Rate 79 71 71 Respiratory Rate 20 Blood Pressure 115/58 L Pulse Oximetry 100 100 Oxygen Delivery Mechanical Ventilation Oxygen Flow Rate Fraction of Inspired Oxygen 30 06/25/22 22:00 06/25/22 20:00 06/25/22 20:00 Temperature Pulse Rate 70 Respiratory Rate Blood Pressure Pulse Oximetry 100 Oxygen Delivery Mechanical Ventilation Oxygen Flow Rate 30 Fraction of Inspired Oxygen 30 06/26/22 00:00 06/26/22 00:00 06/26/22 00:00 Temperature Pulse Rate 73 Respiratory Rate Blood Pressure Pulse Oximetry 100 Oxygen Delivery Mechanical Ventilation Oxygen Flow Rate 30 Fraction of Inspired Oxygen 30 06/25/22 20:00 06/25/22 22:00 06/26/22 00:00 Temperature 9
[2022-06-26] MEDS: EPOETIN ALFA-EPBX 10,000 UNITS/ML VIAL 10000 UNITS IV PUSH (14:14)
[2022-06-26] MEDS: HEPARIN SODIUM 1,000 UNITS/ML VIAL 5000 UNITS (14:14)
[2022-06-26] MEDS: SODIUM CHLORIDE 0.9% IV 1,000 ML 999 ML IV CONT (14:16)
--- NOTE | 2022-06-26 14:46 | PC.NURSE ---
Spoke with patient's nephew Rigoberto and next of kin. Rigoberto to speak with patient's sister prior to consenting to surgery.
--- NOTE | 2022-06-26 16:26 | P.PNNP_ITS ---
Progress Note: A&P Assessment and Plan (1) End stage renal disease: Code(s): N18.6 - End stage renal disease Status: Chronic Assessment and Plan: * HD done earlier today. * Volume status looks okay. * Electrolytes are okay. (2) Cardiac arrest: Code(s): I46.9 - Cardiac arrest, cause unspecified Status: Acute Assessment and Plan: * exact etiology not clear * suspicion falls on use of propofol for procedure * however, other factors could be responsible including worsening anemia, aspiration, respiratory acidosis...etc * Cardiology recommendations notes * most recent Echo noted (3) Acute respiratory failure: Code(s): J96.00 - Acute respiratory failure, unspecified whether with hypoxia or hypercapnia Status: Acute Assessment and Plan: * secondary to cardiac arrest initially * failed trial of extubation * Now on full ventilatory support again. * May need trach soon (4) GI bleed: Code(s): K92.2 - Gastrointestinal hemorrhage, unspecified Status: Acute Assessment and Plan: * s/p EGD (on 06/12/22) with small ulcer which was not bleeding, gastritis and hiatal hernia * PRBC transfusion per protocol * Epogen with HD * hemoglobin up and down in the 8s. (5) Hypotension: Code(s): I95.9 - Hypotension, unspecified Status: Acute Assessment and Plan: * has a chronic component of hypotension at baseline (presumably secondary to his cardiomyopathy) * has been requiring levophed during dialysis treatments only * Systolic running 100-120 (6) Acute on chronic combined systolic and diastolic CHF (congestive heart failure): Code(s): I50.43 - Acute on chronic combined systolic (congestive) and diastolic (congestive) heart failure Status: Acute Assessment and Plan: * push fluid removal with dialysis * limiting factor is his hemodynamics * recent Echo noted (7) Diabetes: Code(s): E11.9 - Type 2 diabetes mellitus without complications Status: Chronic Assessment and Plan: * on Accu-Cheks and sliding-scale insulin Per psychiatrist/ hospitalist. Additional Plan 1. Jaime is a very pleasant gentleman with end-stage renal disease. ? He gets dialysis 3 times a week. Due for dialysis tomorrow Had some fluid off yesterday. Discussed with Dr Stein 2.? The patient had black stools. ? EGD showed ulcerative gastritis.? This explains the bleeding. ? Hb 6.9 at one point.? Hemoglobin stable in the mid 8. ? He is on pantoprazole. ? reticulocyte count is okay.? Will continue Epogen. 3. the patient has renal osteodystrophy. ? Phosphorus level is normal. 4. the patient has hypertension. ? Blood pressure meds are on hold.? Blood pressure still a little bit soft with a systolic between 90 and 110. 5.? He has congestive cardiomyopathy. Continue to remove fluid as tolerated. 6.? He has hyperlipidemia and is on atorvastatin. 7.? He has diabetes.? He is on insulin sliding scale and Accu-Cheks? per psychiatrist/hospitalist. 8. Patient has respiratory failure. His vent settings: Minute volume is only 5, FiO2 40%. Subjective Date/time seen: 06/26/22 16:26 Interval history: Patient is on the ventilator. No sedatives. he was extubated and reintubated. His eyes are open and he is aware of the examiner. Nods his head yes and no and follows commands. He looks generally weak Exam Na
--- NOTE | 2022-06-26 16:26 | PM.PNNEP ---
Progress Note: A&P Assessment and Plan (1) End stage renal disease: Code(s): N18.6 - End stage renal disease Status: Chronic Assessment and Plan: HD done earlier today. Volume status looks okay. Electrolytes are okay. (2) Cardiac arrest: Code(s): I46.9 - Cardiac arrest, cause unspecified Status: Acute Assessment and Plan: exact etiology not clear suspicion falls on use of propofol for procedure however, other factors could be responsible including worsening anemia, aspiration, respiratory acidosis...etc Cardiology recommendations notes most recent Echo noted (3) Acute respiratory failure: Code(s): J96.00 - Acute respiratory failure, unspecified whether with hypoxia or hypercapnia Status: Acute Assessment and Plan: secondary to cardiac arrest initially failed trial of extubation Now on full ventilatory support again. May need trach soon (4) GI bleed: Code(s): K92.2 - Gastrointestinal hemorrhage, unspecified Status: Acute Assessment and Plan: s/p EGD (on 06/12/22) with small ulcer which was not bleeding, gastritis and hiatal hernia PRBC transfusion per protocol Epogen with HD hemoglobin up and down in the 8s. (5) Hypotension: Code(s): I95.9 - Hypotension, unspecified Status: Acute Assessment and Plan: has a chronic component of hypotension at baseline (presumably secondary to his cardiomyopathy) has been requiring levophed during dialysis treatments only Systolic running 100-120 (6) Acute on chronic combined systolic and diastolic CHF (congestive heart failure): Code(s): I50.43 - Acute on chronic combined systolic (congestive) and diastolic (congestive) heart failure Status: Acute Assessment and Plan: push fluid removal with dialysis limiting factor is his hemodynamics recent Echo noted (7) Diabetes: Code(s): E11.9 - Type 2 diabetes mellitus without complications Status: Chronic Assessment and Plan: on Accu-Cheks and sliding-scale insulin Per infection control preventionist/ hospitalist. Additional Plan 1. Jaime is a very pleasant gentleman with end-stage renal disease. ? He gets dialysis 3 times a week. Due for dialysis tomorrow Had some fluid off yesterday. Discussed with Dr Stein 2.? The patient had black stools. ? EGD showed ulcerative gastritis.? This explains the bleeding. ? Hb 6.9 at one point.? Hemoglobin stable in the mid 8. ? He is on pantoprazole. ? reticulocyte count is okay.? Will continue Epogen. 3. the patient has renal osteodystrophy. ? Phosphorus level is normal. 4. the patient has hypertension. ? Blood pressure meds are on hold.? Blood pressure still a little bit soft with a systolic between 90 and 110. 5.? He has congestive cardiomyopathy. Continue to remove fluid as tolerated. 6.? He has hyperlipidemia and is on atorvastatin. 7.? He has diabetes.? He is on insulin sliding scale and Accu-Cheks? per infection control preventionist/hospitalist. 8. Patient has respiratory failure. His vent settings: Minute volume is only 5, FiO2 40%. Subjective Date/time seen: 06/26/22 16:26 Interval history: Patient is on the ventilator. No sedatives. he was extubated and reintubated. His eyes are open and he is aware of the examiner. Nods his head yes and no and follows commands. He looks generally weak Exam Narrative: General: WD/WN generally weak male in NAD; intubated Heart: normal S1 and S2; no rub or gallop Lungs: coarse breath sounds throughout Abdomen: bowel sounds positive soft nontender Extremities: 1+ edema Skin: no rash Objective Data Vital Signs Vital Signs: Vital Signs - 24 hr 06/25/22 17:08 06/25/22 18:00 06/25/22 18:00 Temperature 36.9 C Pulse Rate 79 78 79 Respiratory Rate 20 Blood Pressure 115/58 L Pulse Oximetry 97 100 Oxygen Delivery Mechanical Ventilation Oxygen Flow Rate
[2022-06-26] MEDS: CEFEPIME 0.5 GM in DEXTROSE 5% IN WATER 50 ML IVPB (17:10)
[2022-06-26 17:36] LABS: Glucose Point of Care 130 mg/dl (65-105)
[2022-06-26 18:21] LABS: Vancomycin Random 20.5 ug/mL (10-20)
--- NOTE | 2022-06-26 18:56 | PC.NURSE ---
Family wishes to come for plan of care conference at 0830 tomorrow.
[2022-06-26] MEDS: SENNA/DOCUSATE SODIUM TABLET 1 TAB PO (19:59)
[2022-06-26] MEDS: CHOLECALCIFEROL 1,000 UNITS TABLET 5000 UNITS PO (19:59)
[2022-06-26 21:16] LABS: Glucose Pleural Fluid 133 mg/dL
[2022-06-26 21:36] LABS: LDH Pleural Fluid 149 U/L; Total Protein Pleural Fluid <3.0 g/dL
[2022-06-26 23:28] LABS: Glucose Point of Care 148 mg/dl (65-105)
[2022-06-27] VITALS (20 sets, daily range): BP systolic 107–139; BP diastolic 41–66; PULSE 67–91; RESP 16–18; TEMP 36.7–37.9; O2SAT 95–100
[2022-06-27 05:07] LABS: Alveolar/Arterial O2 Gradient 68.2 mmHg; Base Excess ABG 5.6 mEq/l (+/-2.0); Carboxyhemoglobin 0.3 % THb (0-2.0); Fractional Inspired Oxygen 25 %; HCO3 ABG 28.6 mEq/l (22.0-26.0); Methemoglobin ABG 0.3 %THb (0-1.5); Oxygen Saturation ABG 95.4 % (95.0-100.0); PCO2 ABG 35.4 mmHg (35.0-45.0); PO2 FiO2 Ratio Arterial Blood 2.72 %; Reduced Hemoglobin 5.4 %THb (0-5.0); Total Hemoglobin 9.8 g/dL (12.0-18.0)
[2022-06-27 05:08] LABS: Modified Allen's Test Unable to perform; Site Drawn RIGHT RADIAL; pH ABG 7.525 (7.350-7.450)
[2022-06-27 05:09] LABS: Arterial Blood Gas PEEP 8 cmH2O; Arterial Blood Gas Tidal Volume 400 ml; Arterial Blood Gas Vent Mode CMV; Arterial Blood Gas Ventilator rate 16 /MIN; Device VENTILATOR
[2022-06-27 05:26] LABS: Hematocrit 29.3 % (42.0-52.0); Hemoglobin 8.6 g/dL (14.0-18.0); Mean Corpuscular HGB Conc 29.4 g/dl (32-36); Mean Corpuscular Hemoglobin 29.8 pg (26-34); Mean Corpuscular Volume 101.4 fl (80-100); Mean Platelet Volume 10.1 fl (7.4-10.4); Platelet Count Result 239 k/mm3 (150-375); Red Blood Count 2.89 M/mm3 (4.6-6.20); Red Cell Distribution Width 17.3 % (11.5-14.5); White Blood Count 15.7 K/mm3 (4.5-10.0)
[2022-06-27] MEDS: LEVOTHYROXINE SODIUM 75 MCG TABLET PO (05:42)
[2022-06-27] MEDS: CENTRAL LINE FLUSH 10 ML IV PUSH ×3 (05:42→20:59)
[2022-06-27 05:44] LABS: Alanine Aminotransferase 29 U/L (6-50); Albumin Level 2.9 g/dL (3.5-5.1); Alkaline Phosphatase 184 U/L (38-126); Anion Gap 7 mmol/L (8-16); Aspartate Amino Transferase 48 U/L (17-59); Bilirubin,Total 0.4 mg/dL (0.2-1.3); Blood Urea Nitrogen 36 mg/dL (9-20); Calcium 8.7 mg/dL (8.4-10.2); Carbon Dioxide 31 mmol/L (22-30); Chloride 97 mmol/L (98-107); Estimated CRCL calculation 20 ml/min; Estimated Glomerular Filt Rate 24; Glucose 113 mg/dL (65-110); Potassium 3.7 mmol/L (3.4-5.0); Sodium 135 mmol/L (137-145)
[2022-06-27 05:58] LABS: INR 1.2; Prothrombin Time 14.6 Seconds (11.1-14.7)
[2022-06-27 05:59] LABS: Partial Thromboplastin Time 35.6 SECONDS (22.3-36.8)
--- NOTE | 2022-06-27 07:38 | P.PNNP_ITS ---
Progress Note: A&P Assessment and Plan (1) End stage renal disease: Code(s): N18.6 - End stage renal disease Status: Chronic Assessment and Plan: * HD done yesterday * 3L removed. (2) Cardiac arrest: Code(s): I46.9 - Cardiac arrest, cause unspecified Status: Acute Assessment and Plan: * exact etiology not clear (3) Acute respiratory failure: Code(s): J96.00 - Acute respiratory failure, unspecified whether with hypoxia or hypercapnia Status: Acute Assessment and Plan: * secondary to cardiac arrest initially * failed trial of extubation * Now on full ventilatory support again. * his minute volume is low and is airway pressures are not high. * He seems generally weak. * He is getting nutrition * May need trach soon (4) GI bleed: Code(s): K92.2 - Gastrointestinal hemorrhage, unspecified Status: Acute Assessment and Plan: * s/p EGD (on 06/12/22) with small ulcer which was not bleeding, gastritis and hiatal hernia * PRBC transfusion per protocol * Epogen with HD * hemoglobin up and down in the 8s. (5) Hypotension: Code(s): I95.9 - Hypotension, unspecified Status: Acute Assessment and Plan: * has a chronic component of hypotension at baseline (presumably secondary to his cardiomyopathy) * Systolic running 100-120 (6) Acute on chronic combined systolic and diastolic CHF (congestive heart failure): Code(s): I50.43 - Acute on chronic combined systolic (congestive) and diastolic (congestive) heart failure Status: Acute Assessment and Plan: * push fluid removal with dialysis * limiting factor is his hemodynamics * recent Echo shows low ejection fraction of 25-30%. (7) Diabetes: Code(s): E11.9 - Type 2 diabetes mellitus without complications Status: Chronic Assessment and Plan: * on Accu-Cheks and sliding-scale insulin Per healthcare translator/ hospitalist. Additional Plan above Subjective Date/time seen: 06/27/22 07:38 Interval history: Patient is on the ventilator. No sedatives. Patient opens eyes and regards the examiner. He follows some commands possibly. Exam Narrative: General: WD/WN generally weak male in NAD; intubated Heart: normal S1 and S2; no rub or gallop Lungs: coarse breath sounds throughout Abdomen: bowel sounds positive soft nontender Extremities: 1+ edema Skin: no rash Or subcu nodules Objective Data Vital Signs Vital Signs: Vital Signs - 24 hr 06/26/22 09:04 06/26/22 08:00 06/26/22 08:00 Temperature Pulse Rate 78 75 81 Respiratory Rate 21 H Blood Pressure Pulse Oximetry 100 97 Oxygen Delivery Mechanical Ventilation Mechanical Ventilation Oxygen Flow Rate 30 Fraction of Inspired Oxygen 30 06/26/22 08:00 06/26/22 08:00 06/26/22 10:00 Temperature 36.3 C L Pulse Rate 81 84 Respiratory Rate 21 H Blood Pressure 103/57 L Pulse Oximetry 97 Oxygen Delivery Oxygen Flow Rate Fraction of Inspired Oxygen 30 06/26/22 10:00 06/26/22 11:06 06/26/22 11:13 Temperature 36.3 C L Pulse Rate 84 86 89 Respiratory Rate 18 Blood P
--- NOTE | 2022-06-27 07:38 | PM.PNNEP ---
Progress Note: A&P Assessment and Plan (1) End stage renal disease: Code(s): N18.6 - End stage renal disease Status: Chronic Assessment and Plan: HD done yesterday 3L removed. (2) Cardiac arrest: Code(s): I46.9 - Cardiac arrest, cause unspecified Status: Acute Assessment and Plan: exact etiology not clear (3) Acute respiratory failure: Code(s): J96.00 - Acute respiratory failure, unspecified whether with hypoxia or hypercapnia Status: Acute Assessment and Plan: secondary to cardiac arrest initially failed trial of extubation Now on full ventilatory support again. his minute volume is low and is airway pressures are not high. He seems generally weak. He is getting nutrition May need trach soon (4) GI bleed: Code(s): K92.2 - Gastrointestinal hemorrhage, unspecified Status: Acute Assessment and Plan: s/p EGD (on 06/12/22) with small ulcer which was not bleeding, gastritis and hiatal hernia PRBC transfusion per protocol Epogen with HD hemoglobin up and down in the 8s. (5) Hypotension: Code(s): I95.9 - Hypotension, unspecified Status: Acute Assessment and Plan: has a chronic component of hypotension at baseline (presumably secondary to his cardiomyopathy) Systolic running 100-120 (6) Acute on chronic combined systolic and diastolic CHF (congestive heart failure): Code(s): I50.43 - Acute on chronic combined systolic (congestive) and diastolic (congestive) heart failure Status: Acute Assessment and Plan: push fluid removal with dialysis limiting factor is his hemodynamics recent Echo shows low ejection fraction of 25-30%. (7) Diabetes: Code(s): E11.9 - Type 2 diabetes mellitus without complications Status: Chronic Assessment and Plan: on Accu-Cheks and sliding-scale insulin Per environmental compliance officer/ hospitalist. Additional Plan above Subjective Date/time seen: 06/27/22 07:38 Interval history: Patient is on the ventilator. No sedatives. Patient opens eyes and regards the examiner. He follows some commands possibly. Exam Narrative: General: WD/WN generally weak male in NAD; intubated Heart: normal S1 and S2; no rub or gallop Lungs: coarse breath sounds throughout Abdomen: bowel sounds positive soft nontender Extremities: 1+ edema Skin: no rash Or subcu nodules Objective Data Vital Signs Vital Signs: Vital Signs - 24 hr 06/26/22 09:04 06/26/22 08:00 06/26/22 08:00 Temperature Pulse Rate 78 75 81 Respiratory Rate 21 H Blood Pressure Pulse Oximetry 100 97 Oxygen Delivery Mechanical Ventilation Mechanical Ventilation Oxygen Flow Rate 30 Fraction of Inspired Oxygen 30 06/26/22 08:00 06/26/22 08:00 06/26/22 10:00 Temperature 36.3 C L Pulse Rate 81 84 Respiratory Rate 21 H Blood Pressure 103/57 L Pulse Oximetry 97 Oxygen Delivery Oxygen Flow Rate Fraction of Inspired Oxygen 30 06/26/22 10:00 06/26/22 11:06 06/26/22 11:13 Temperature 36.3 C L Pulse Rate 84 86 89 Respiratory Rate 18 Blood Pressure 123/51 L 128/85 Pulse Oximetry 100 100 Oxygen Delivery Mechanical Ventilation Oxygen Flow Rate Fraction of Inspired Oxygen 30 06/26/22 11:45 06/26/22 12:00 06/26/22 11:00 Temperature 36.4 C Pulse Rate 86 80 88 Respiratory Rate 25 H Blood Pressure 128/97 H 111/49 L 125/53 L Pulse Oximetry 100 Oxygen Delivery Oxygen Flow Rate Fraction of Inspired Oxygen 06/26/22 12:15 06/26/22 11:00 06/26/22 12:30 Temperature Pulse Rate 81 87 Respiratory Rate Blood Pressure 114/49 L 122/52 L Pulse Oximetry Oxygen Delivery Oxygen Flow Rate Fraction of Inspired Oxygen 30 06/26/22 11:30 06/26/22 12:45 06/26/22 13:00 Temperature Pulse Rate 90 87 89 Respiratory Rate Blood Pressure 128/99 H 123/70 122/58 L Pulse Oxim
[2022-06-27] MEDS: modafiniL (*CRX) 200 MG TABLET FEED TUBE (09:40)
[2022-06-27] MEDS: MINERAL OIL/WHITE PETROLATUM OINTMENT 1 APPLIC EACH EYE ×2 (09:41→20:59)
[2022-06-27] MEDS: ATORVASTATIN 40 MG TABLET 80 MG PO (09:41)
[2022-06-27] MEDS: ASPIRIN 325 MG TABLET FEED TUBE (09:41)
[2022-06-27] MEDS: PANTOPRAZOLE SODIUM IV 40 MG VIAL IV PUSH ×2 (09:41→20:59)
[2022-06-27] MEDS: OPTI-GEN TAB 1 TABLET PO ×2 (09:41→20:59)
--- NOTE | 2022-06-27 10:18 | PM.IMPN ---
Progress Note: A&P Assessment and Plan (1) Acute respiratory failure: Code(s): J96.00 - Acute respiratory failure, unspecified whether with hypoxia or hypercapnia Status: Acute Assessment and Plan: Respiratory failure likely related to cardiac arrest, generalized weakness debility, pulmonary edema and encephalopathy -initial intubated 06/12/2022 -weaning has been unsuccessful -currently on cefepime -question plan for trach -family was present in the room and apparently they have decided to consider comfort measures. They did speak with the ICU physician regarding this. Will await plans for this decision. (2) End-stage renal disease on hemodialysis: Code(s): N18.6 - End stage renal disease; Z99.2 - Dependence on renal dialysis Status: Acute Assessment and Plan: Manage per Renal (3) Cardiac arrest: Code(s): I46.9 - Cardiac arrest, cause unspecified Status: Acute Assessment and Plan: Exact etiology not clear but patient has significant coronary artery disease and cardiomyopathy, he received propofol for sedation which itself can cause bradycardia, hypoventilation from sedation during the procedure is another possibility which could have led to respiratory acidosis, respiratory failure, bradycardia and PEA arrest (4) GI bleed: Code(s): K92.2 - Gastrointestinal hemorrhage, unspecified Status: Acute Assessment and Plan: Appreciate GI input (5) DVT (deep venous thrombosis): Code(s): I82.409 - Acute embolism and thrombosis of unspecified deep veins of unspecified lower extremity Status: Acute Assessment and Plan: 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 Anticoagulation held due to GI bleed 06/12 venous Doppler of right lower extremity does not show any DVT at this time On prophylactic dose Lovenox at this time (6) Diabetes: Code(s): E11.9 - Type 2 diabetes mellitus without complications Status: Chronic Assessment and Plan: Continue sliding scale insulin Accu-Cheks Continue to Hold Lantus (7) Acute on chronic combined systolic and diastolic CHF (congestive heart failure): Code(s): I50.43 - Acute on chronic combined systolic (congestive) and diastolic (congestive) heart failure Status: Acute Assessment and Plan: Echocardiogram as above Receiving regular dialysis (8) Hypotension: Code(s): I95.9 - Hypotension, unspecified Status: Acute Assessment and Plan: Managed per ICU (9) Encephalopathy: Code(s): G93.40 - Encephalopathy, unspecified Status: Acute Assessment and Plan: Currently intubated. Not on any sedation. Patient does make some eye contact with conversation with him. See plan above (10) Ileus: Code(s): K56.7 - Ileus, unspecified Status: Acute Assessment and Plan: Resolved (11) Hypokalemia: Code(s): E87.6 - Hypokalemia Status: Acute Assessment and Plan: Monitor Subjective Date/time seen: 06/27/22 10:18 Intubated Exam Narrative: General: intubated and on mechanical ventilation in no acute distress HEENT: Pupils equal and reactive, ETT in place, sclera is clear Lungs/Chest: Trachea central Coarse BS B/L, bilateral rales, decreased breath sounds at bases, mild inspiratory stridor Cardiac: Regular sinus rate and rhythm Abdomen: Soft, nontender, nondistended, decreased bowel sounds. Old surgical scars noted in the midline and right inguinal area Extremities: Bilateral lower extremity skin wrinkling, continues to have 1+ pitting edema present on both lower extremities : Golden in place Neurologic: Patient is drowsy, opens eyes on calling his name, follows commands intermittently and inconsistently with all 4 extremities, he appears to be using right side more than the left especially left lower extremity does move it sometimes PERRL, ptosis of the left eye but is able to open his eyes on ava
[2022-06-27 11:39] LABS: Glucose Point of Care 109 mg/dl (65-105)
--- NOTE | 2022-06-27 11:39 | PCNFU ---
Nutrition Follow-Up Complete: Inadequate oral intake as related to mechanical ventilation as evidenced by tube feeding orders. Goal: Meet estimated nutritional needs Patient has limited progress towards goal. Pt current nutrition is NPO. Last recorded weight is 68.3 kg, down from 80.2 kg on admit. Bowel Motility: +Bm reported 06/26 Labs Reviewed:Alb 2.9,Na 135, GFR 24, BUN 36, Cr 2.6,Glu 113 Meds Noted:Lipitor, Protonix, Levophed, Vit D, Synthroid Skin:Deep Tissue/stage II pressure ulcer-coccyx Additional Notes: Patient remains on mechanical vent. No sedation. Tube feedings on hold with plans for PEG/Trach. MD discussing comfort measures with family. No further nutritional interventions needed at this time. Will monitor in ICU rounds every Sunday and Sunday.
--- NOTE | 2022-06-27 11:46 | PM.PNCARD ---
Progress Note: A&P Assessment and Plan (1) Cardiac arrest with successful resuscitation: Code(s): I46.9 - Cardiac arrest, cause unspecified Status: Acute Assessment and Plan: On ventilator again. Has movement but does not appear to be purposeful movement. Discussions with family per concrete pile driver operator regarding plan of care. No changes from a cardiac perspective at this point (2) End stage renal disease: Code(s): N18.6 - End stage renal disease Status: Chronic Assessment and Plan: On dialysis Subjective Date/time seen: 06/27/22 11:46 Interval history: Follow-up visit in this 77-year-old man with: Chronic coronary artery disease, 2 previous bypass operations and ischemic cardiomyopathy. Patient has been on guideline directed medical therapy with a defibrillator for a number of years and has been wrong remarkably stable. Earlier this year he has developed worsening condition with repeated admissions with heart failure declining renal function and now is dependent on hemodialysis. Patient clearly has end-stage ischemic heart disease. As mentioned in previous notes his only remaining coronary circulation is a old vein graft to his LAD. No options for further revascularization are available Date of service 06/27/2022: Remains ventilated. Sinus rhythm. Movement but not purposeful Review of Systems Review of Systems: ROS unobtainable: Yes unobtainable due to medical condition and unobtainable due to mental status Constitutional: Constitutional: Denies fever(s) Eyes: Eyes: Reports no additional eye complaints ENT: Denies epistaxis Cardiovascular: Cardiovascular: Denies chest pain, Denies pedal edema, Reports lightheadedness, Denies dyspnea and Reports dyspnea on exertion Respiratory: Respiratory: Denies chest congestion, Denies dyspnea and Reports dyspnea on exertion Gastrointestinal: Gastrointestinal: Denies abdominal pain, Reports melena, Denies hematochezia and Reports heartburn (History of GERD, not a big problem recently.) Musculoskeletal: Musculoskeletal: Denies no additional musculoskeletal complaints Integumentary/Breasts: Skin/Breast: Reports system reviewed and no additional complaints, except as docu Neurologic: Reports system reviewed and no additional complaints, except as documented, Denies behavioral changes and Reports confusion Psychiatric: Psychiatric: Denies behavioral changes and Reports confusion Exam Narrative: extubated, unresponsive Const: General: cooperative, comfortable, no acute distress, confusion and patient obtunded; No healthy appearing Orientation/consciousness: oriented to person, patient oriented x3, confusion and patient obtunded Other: Elderly chronically ill gentleman in ICU room 5. He is supine he is responsive to stimulation but incoherent HENMT: Mouth: Yes moist mucous membranes Eyes: General: appearance normal, both eyes and all related structures Sclera: sclerae normal EOM: EOMs intact bilaterally Neck: Neck: supple and no JVD Thyroid: thyroid normal Carotids: no bruits Resp: Effort & Inspection: normal respiratory effort Auscultation: not clear to auscultation bilaterally, rhonchi and wheezes ( mild diffuse expiratory wheezes) Other: Diminished breath sounds Cardio: Rate: regular rate and tachycardic Rhythm: regular rhythm Heart sounds: no murmurs Other: soft systolic murmur does not radiate from the left sternal border GI: Inspection: normal to inspection and non-distended Auscultation: normal bowel sounds Urinary Catheter: Urinary Catheter: patent and draining Skin: General skin exam: normal color and no rashes or lesions noted Neuro: General: oriented to person, patient oriented x3, confusion and patient obtunded Other: responsive but incoherent Extrem: General: normal to inspection and no edema Right lower extremity: edema Left lower extremity: edema Other: modest pretibial edema Psych: Appearanc
--- NOTE | 2022-06-27 12:24 | WPDINTPN ---
Progress Note: A&P Assessment and Plan (1) Acute respiratory failure: Code(s): J96.00 - Acute respiratory failure, unspecified whether with hypoxia or hypercapnia Status: Acute Assessment and Plan: Respiratory failure likely related to cardiac arrest, generalized weakness debility, pulmonary edema and encephalopathy -initial intubated 06/12/2022 -weaning has been unsuccessful as patient is too drowsy, gets apneic, has high RSBI on trial -06/20: Thick ETT secretions, febrile, elevated WBC count, worsening chest x-ray -patient was started patient on cefepime renally dosed and vancomycin (06/20) 06/20 CT chest noncontrast 1. Bilateral airspace disease, left greater than right, which may represent edema and/or pneumonia. Left basilar airspace disease has progressed since prior CT examination. 2: Moderate left and small right pleural effusions. 3:? Moderate cardiomegaly. 4:? Ascites. Additional fluid was removed yesterday by hemodialysis and patient is scheduled for another dialysis session today 06/21 patient underwent diagnostic and therapeutic thoracentesis and 700 mL fluid was removed 06/22 extubated. 06/23 reintubated as patient unable to clear his secretions, stridor Chest x-ray reviewed Continue hemodialysis to remove fluid He has completed a course of Solu-Medrol for stridor 06/25 placed on PSV weaning trial but the patient needed pressure support of 15/8 for adequate RSBI. He tolerated for few hours 06/26 PSV 15/8 as tolerated. Consulted ENT for tracheostomy Status post Levaquin, Flagyl x7 days for possible aspiration pneumonia. Continue cefepime and vancomycin (started 06/20) 06/27: Discussed with sister and nephew was the POA, at length regarding tracheostomy and PEG tube placement, they are of the view that he would not want to have that quality of life, they have decided to withdraw support on 06/28/2022 (2) End-stage renal disease on hemodialysis: Code(s): N18.6 - End stage renal disease; Z99.2 - Dependence on renal dialysis Status: Acute Assessment and Plan: Patient has a history of end-stage renal disease and started on hemodialysis in April 2022 -patient does require Levophed briefly with dialysis -dialysis per Nephrology which is Sunday at this time (3) Cardiac arrest: Code(s): I46.9 - Cardiac arrest, cause unspecified Status: Acute Assessment and Plan: Exact etiology not clear but patient has significant coronary artery disease and cardiomyopathy, he received propofol for sedation which itself can cause bradycardia, hypoventilation from sedation during the procedure is another possibility which could have led to respiratory acidosis, respiratory failure, bradycardia and PEA arrest -Worsening anemia could be another contributing factor as his hemoglobin is 6.9 -Aspiration is also possibility although patient was NPO prior to the procedure because of his GI bleed and for EGD 06/17/2022: Patient in the brief cardiac arrest with 1 round of CPR with ROSC, No medications were given. Likely secondary to rescue cath suction and possibly vasovagal as he bradycardic and then lost his pulse. -patient has been requiring Levophed on and off for for dialysis -appreciate cardiology following the patient -patient's pacemaker rate was increased to 60 -06/12/2022: Cardiac echocardiogram: LV systolic function is severely reduced with EF of 25-30%, grade 3 diastolic dysfunction, RV systolic function is moderately reduced, mild mitral valve regurg, mild tricuspid valve regurg, moderate pulmonary hypertension with RVSP of 49 mmHg. (4) GI bleed: Code(s): K92.2 - Gastrointestinal hemorrhage, unspecified Status: Acute Assessment and Plan: 06/12 EGD showed small ulcer which was not bleeding and gastritis, hiatal hernia PPI IV q.12 hours 06/12 Hemoglobin was 6.9, transfuse1 unit of PRBC Monitor hemoglobin and transfuse additional units as needed Therapeutic Anticoag
[2022-06-27] MEDS: CEFEPIME 0.5 GM in DEXTROSE 5% IN WATER 50 ML IVPB (18:43)
[2022-06-27 18:50] LABS: Glucose Point of Care 102 mg/dl (65-105)
[2022-06-27] MEDS: SENNA/DOCUSATE SODIUM TABLET 1 TAB PO (20:59)
[2022-06-27] MEDS: CHOLECALCIFEROL 1,000 UNITS TABLET 5000 UNITS PO (20:59)
[2022-06-27 23:52] LABS: Glucose Point of Care 95 mg/dl (65-105)
[2022-06-28] VITALS (8 sets, daily range): BP systolic 130–144; BP diastolic 52–78; PULSE 66–84; RESP 16; TEMP 36.6–37.1; O2SAT 100
[2022-06-28 04:50] LABS: Alveolar/Arterial O2 Gradient 56.3 mmHg; Base Excess ABG 1.8 mEq/l (+/-2.0); Fractional Inspired Oxygen 25 %; HCO3 ABG 24.3 mEq/l (22.0-26.0); Methemoglobin ABG 0.4 %THb (0-1.5); Oxygen Content ABG 13.5 %vol (16.0-22.0); Oxygen Saturation ABG 97.4 % (95.0-100.0); Oxyhemoglobin 96.1 % THb (90.0-100.0); PCO2 ABG 30.5 mmHg (35.0-45.0); PO2 ABG 85.7 mmHg (80.0-100.0); PO2 FiO2 Ratio Arterial Blood 3.43 %; Reduced Hemoglobin 3.5 %THb (0-5.0); Total Hemoglobin 9.9 g/dL (12.0-18.0)
[2022-06-28 04:51] LABS: Arterial Blood Gas PEEP 8 cmH2O; Arterial Blood Gas Vent Mode CMV; Arterial Blood Gas Ventilator rate 16 /MIN; Device VENTILATOR; Modified Allen's Test Unable to perform; Site Drawn RIGHT RADIAL; pH ABG 7.519 (7.350-7.450)
[2022-06-28 04:52] LABS: Arterial Blood Gas Tidal Volume 400 ml
[2022-06-28 05:37] LABS: Hematocrit 28.5 % (42.0-52.0); Hemoglobin 8.5 g/dL (14.0-18.0); Mean Corpuscular HGB Conc 29.8 g/dl (32-36); Mean Corpuscular Hemoglobin 29.9 pg (26-34); Mean Corpuscular Volume 100.4 fl (80-100); Mean Platelet Volume 10.5 fl (7.4-10.4); Platelet Count Result 245 k/mm3 (150-375); Red Blood Count 2.84 M/mm3 (4.6-6.20); Red Cell Distribution Width 17.5 % (11.5-14.5); White Blood Count 15.7 K/mm3 (4.5-10.0)
[2022-06-28 06:07] LABS: Alanine Aminotransferase 23 U/L (6-50); Alkaline Phosphatase 145 U/L (38-126); Anion Gap 11 mmol/L (8-16); Aspartate Amino Transferase 41 U/L (17-59); Bilirubin,Total 0.5 mg/dL (0.2-1.3); Blood Urea Nitrogen 52 mg/dL (9-20); Carbon Dioxide 28 mmol/L (22-30); Chloride 97 mmol/L (98-107); Estimated CRCL calculation 14 ml/min; Estimated Glomerular Filt Rate 15; Glucose 91 mg/dL (65-110); Magnesium 2.1 mg/dL (1.6-2.3); Potassium 3.7 mmol/L (3.4-5.0); Sodium 136 mmol/L (137-145)
[2022-06-28] MEDS: LEVOTHYROXINE SODIUM 75 MCG TABLET PO (06:17)
[2022-06-28] MEDS: CENTRAL LINE FLUSH 10 ML IV PUSH (06:17)
[2022-06-28] MEDS: PANTOPRAZOLE SODIUM IV 40 MG VIAL IV PUSH (08:29)
[2022-06-28] MEDS: OPTI-GEN TAB 1 TABLET PO (08:29)
[2022-06-28] MEDS: MINERAL OIL/WHITE PETROLATUM OINTMENT 1 APPLIC EACH EYE (08:30)
[2022-06-28] MEDS: ATORVASTATIN 40 MG TABLET 80 MG PO (08:30)
[2022-06-28] MEDS: ASPIRIN 325 MG TABLET FEED TUBE (08:30)
[2022-06-28] MEDS: modafiniL (*CRX) 200 MG TABLET FEED TUBE (08:31)
[2022-06-28] MEDS: LORazepam INJ (*CRX) 2 MG/ML VIAL IV PUSH (09:17)
[2022-06-28] MEDS: MORPHINE SULFATE INJ (*CRX) 10 MG/ML AMP 5 MG IV PUSH (09:17)
--- NOTE | 2022-06-28 09:31 | PM.PNCARD ---
Progress Note: A&P Assessment and Plan (1) Cardiac arrest with successful resuscitation: Code(s): I46.9 - Cardiac arrest, cause unspecified Status: Acute Assessment and Plan: On ventilator again. Has movement but does not appear to be purposeful movement. Reported plan of withdrawal of care today. Cardiology to sign off (2) End stage renal disease: Code(s): N18.6 - End stage renal disease Status: Chronic Assessment and Plan: On dialysis Subjective Date/time seen: 06/28/22 09:31 Interval history: Follow-up visit in this 77-year-old man with: Chronic coronary artery disease, 2 previous bypass operations and ischemic cardiomyopathy. Patient has been on guideline directed medical therapy with a defibrillator for a number of years and has been wrong remarkably stable. Earlier this year he has developed worsening condition with repeated admissions with heart failure declining renal function and now is dependent on hemodialysis. Patient clearly has end-stage ischemic heart disease. As mentioned in previous notes his only remaining coronary circulation is a old vein graft to his LAD. No options for further revascularization are available Date of service 06/27/2022: Remains ventilated. Sinus rhythm. Movement but not purposeful Date of service 06/28/2022: No significant change. Plan for withdrawal of care today for ICU team and family wishes Review of Systems Review of Systems: ROS unobtainable: Yes unobtainable due to medical condition and unobtainable due to mental status Constitutional: Constitutional: Denies fever(s) Eyes: Eyes: Reports no additional eye complaints ENT: Denies epistaxis Cardiovascular: Cardiovascular: Denies chest pain, Denies pedal edema, Reports lightheadedness, Denies dyspnea and Reports dyspnea on exertion Respiratory: Respiratory: Denies chest congestion, Denies dyspnea and Reports dyspnea on exertion Gastrointestinal: Gastrointestinal: Denies abdominal pain, Reports melena, Denies hematochezia and Reports heartburn (History of GERD, not a big problem recently.) Musculoskeletal: Musculoskeletal: Denies no additional musculoskeletal complaints Integumentary/Breasts: Skin/Breast: Reports system reviewed and no additional complaints, except as docu Neurologic: Reports system reviewed and no additional complaints, except as documented, Denies behavioral changes and Reports confusion Psychiatric: Psychiatric: Denies behavioral changes and Reports confusion Exam Narrative: extubated, unresponsive Const: General: cooperative, comfortable, no acute distress, confusion and patient obtunded; No healthy appearing Orientation/consciousness: oriented to person, patient oriented x3, confusion and patient obtunded Other: Elderly chronically ill gentleman in ICU room 5. He is supine he is responsive to stimulation but incoherent HENMT: Mouth: Yes moist mucous membranes Eyes: General: appearance normal, both eyes and all related structures Sclera: sclerae normal EOM: EOMs intact bilaterally Neck: Neck: supple and no JVD Thyroid: thyroid normal Carotids: no bruits Resp: Effort & Inspection: normal respiratory effort Auscultation: not clear to auscultation bilaterally, rhonchi and wheezes ( mild diffuse expiratory wheezes) Other: Diminished breath sounds Cardio: Rate: regular rate and tachycardic Rhythm: regular rhythm Heart sounds: no murmurs Other: soft systolic murmur does not radiate from the left sternal border GI: Inspection: normal to inspection and non-distended Auscultation: normal bowel sounds Urinary Catheter: Urinary Catheter: patent and draining Skin: General skin exam: normal color and no rashes or lesions noted Neuro: General: oriented to person, patient oriented x3, confusion and patient obtunded Other: responsive but incoherent Extrem: General: normal to inspection and no edema Right lower extremity: edema Left lower
--- NOTE | 2022-06-28 09:39 | P.PNINT_ITS ---
Progress Note: A&P Assessment and Plan (1) Acute respiratory failure: Code(s): J96.00 - Acute respiratory failure, unspecified whether with hypoxia or hypercapnia Status: Acute Assessment and Plan: Respiratory failure likely related to cardiac arrest, generalized weakness debility, pulmonary edema and encephalopathy -initial intubated 06/12/2022 -weaning has been unsuccessful as patient is too drowsy, gets apneic, has high RSBI on trial -06/20: Thick ETT secretions, febrile, elevated WBC count, worsening chest x- ray -patient was started patient on cefepime renally dosed and vancomycin (06/20) 06/20 CT chest noncontrast 1. Bilateral airspace disease, left greater than right, which may represent edema and/or pneumonia. Left basilar airspace disease has progressed since prior CT examination. 2: Moderate left and small right pleural effusions. 3:? Moderate cardiomegaly. 4:? Ascites. Additional fluid was removed yesterday by hemodialysis and patient is scheduled for another dialysis session today 06/21 patient underwent diagnostic and therapeutic thoracentesis and 700 mL fluid was removed 06/22 extubated. 06/23 reintubated as patient unable to clear his secretions, stridor Chest x-ray reviewed Continue hemodialysis to remove fluid He has completed a course of Solu-Medrol for stridor 06/25 placed on PSV weaning trial but the patient needed pressure support of 15/8 for adequate RSBI. He tolerated for few hours 06/26 PSV 15/8 as tolerated. Consulted ENT for tracheostomy Status post Levaquin, Flagyl x7 days for possible aspiration pneumonia. Contin ue cefepime and vancomycin (started 06/20) 06/27: Discussed with sister and nephew was the POA, at length regarding tracheostomy and PEG tube placement, they are of the view that he would not want to have that quality of life, they have decided to withdraw support on 06/28/2022 (2) End-stage renal disease on hemodialysis: Code(s): N18.6 - End stage renal disease; Z99.2 - Dependence on renal dialysis Status: Acute Assessment and Plan: Patient has a history of end-stage renal disease and started on hemodialysis in April 2022 -patient does require Levophed briefly with dialysis -dialysis per Nephrology which is Sunday at this time (3) Cardiac arrest: Code(s): I46.9 - Cardiac arrest, cause unspecified Status: Acute Assessment and Plan: Exact etiology not clear but patient has significant coronary artery disease and cardiomyopathy, he received propofol for sedation which itself can cause bradycardia, hypoventilation from sedation during the procedure is another possibility which could have led to respiratory acidosis, respiratory failure, bradycardia and PEA arrest -Worsening anemia could be another contributing factor as his hemoglobin is 6.9 -Aspiration is also possibility although patient was NPO prior to the procedure because of his GI bleed and for EGD 06/17/2022: Patient in the brief cardiac arrest with 1 round of CPR with ROSC, No medications were given. Likely secondary to rescue cath suction and possibly vasovagal as he bradycardic and then lost his pulse. -patient has been requiring Levophed on and off for for dialysis -appreciate cardiology following the patient -patient's pacemaker rate was increased to 60 -06/12/2022: Cardiac echocardiogram: LV systolic function is severely reduced with EF of 25-30%, grade 3 diastolic dysfunction, RV systolic function is moderately reduced, mild mitral valve regurg, mild tricuspid valve regurg, moderate pulmonary hypertension with RVSP of 49 mmHg. (4) GI bleed: Code(s): K92.2 - Elsi
--- NOTE | 2022-06-28 12:11 | PM.DDS ---
Discharge Summary Date and Time Date of : 06/28/22 Time of : 10:00 Provider Pronounced By: CISCO Rivera, Taya Richard RN Probable Cause of Probable Cause of : cardiac and respiratory arrest Summary Hospital Course: 77-year-old male with respiratory failure and cardiac arrest on ventilator for several weeks and was not able to wean the patient off the ventilator, family decided to withdraw the care and patient , patient before I could see him Additional Data Confirmation of as documented by pronouncing clinician: Pupillary Reflex, Palpable Pulses, Response to Stimuli, Heart Tones and Breath Sounds Name of Provider Notified: Dr. Stein Time Provider Notified: 10:00 Provider Requests Autopsy: No Family Requests Autopsy: No Advisory Services Associate Notified: Yes Date [facility] Notified of : 06/28/22 Time [facility] Notified of : 10:08
== END 2022-06-28 10:00 | disposition expired | DRG 377 ==
LOC: ANHED 02:59 → ANHIMU 04:03 → ANHICU 06-12 15:10 → ANHIMU 06-17 00:29 → ANHICU 06-17 00:30
PROVIDERS: Internal Medicine; Internal Medicine Gastroenterology; Internal Medicine Nephrology; Student in an Organized Health Care Education/Training Program; Admitting Provider Internal Medicine; Emergency Provider Emergency Medicine; PCP Family Medicine; Visit Provider Internal Medicine
PROC: 0DJ08ZZ Inspection of Upper Intestinal Tract, Via Natural or Artificial Opening Endoscopic (ICD-10-PCS; CPT 43235; principal; 2022-06-12 14:00)
DX: K29.71 Gastritis, unspecified, with bleeding (principal); N18.6 End stage renal disease; J96.00 Acute respiratory failure, unspecified whether with hypoxia or hypercapnia; J69.0 Pneumonitis due to inhalation of food and vomit; G93.41 Metabolic encephalopathy; I50.43 Acute on chronic combined systolic (congestive) and diastolic (congestive) heart failure; I13.2 Hypertensive heart and chronic kidney disease with heart failure and with stage 5 chronic kidney disease, or end stage renal disease; I25.810 Atherosclerosis of coronary artery bypass graft(s) without angina pectoris; R18.8 Other ascites; K56.7 Ileus, unspecified; J95.89 Other postprocedural complications and disorders of respiratory system, not elsewhere classified; I46.9 Cardiac arrest, cause unspecified; E11.22 Type 2 diabetes mellitus with diabetic chronic kidney disease; I73.9 Peripheral vascular disease, unspecified; K21.9 Gastro-esophageal reflux disease without esophagitis; E03.9 Hypothyroidism, unspecified; D64.9 Anemia, unspecified; I25.5 Ischemic cardiomyopathy; I65.23 Occlusion and stenosis of bilateral carotid arteries; L40.9 Psoriasis, unspecified; M19.90 Unspecified osteoarthritis, unspecified site; I95.9 Hypotension, unspecified; Z20.822 Contact with and (suspected) exposure to COVID-19; I71.4 Abdominal aortic aneurysm, without rupture; K44.9 Diaphragmatic hernia without obstruction or gangrene; T17.990A Other foreign object in respiratory tract, part unspecified in causing asphyxiation, initial encounter; T41.295A Adverse effect of other general anesthetics, initial encounter; R00.0 Tachycardia, unspecified; R00.1 Bradycardia, unspecified; E87.6 Hypokalemia; J44.9 Chronic obstructive pulmonary disease, unspecified; N25.0 Renal osteodystrophy; E78.2 Mixed hyperlipidemia; G47.33 Obstructive sleep apnea (adult) (pediatric); K74.60 Unspecified cirrhosis of liver; Z99.2 Dependence on renal dialysis; Z87.891 Personal history of nicotine dependence; Z95.810 Presence of automatic (implantable) cardiac defibrillator; Z95.1 Presence of aortocoronary bypass graft; Z86.718 Personal history of other venous thrombosis and embolism; Z79.02 Long term (current) use of antithrombotics/antiplatelets; Z79.82 Long term (current) use of aspirin; Z79.01 Long term (current) use of anticoagulants
CPT/HCPCS: 31500; 32555; 36415; 36430; 36556; 36600; 70450; 71045; 71250; 74019; 80048; 80053; 80202; 81001; 82140; 82375; 82728; 82805; 82945; 82947; 82948; 83050; 83540; 83550; 83605; 83615; 83735; 84100; 84155; 84157; 84443; 84484; 85014; 85018; 85025; 85027; 85046; 85610; 85730; 86706; 86850; 86900; 86901; 86922; 87040; 87070; 87075; 87081; 87086; 87102; 87205; 87206; 87340; 88305; 89051; 93005; 93306; 93971; 94002; 94003; 94640; 95816; 96365; 96366; 96368; 96375; 99285; A9270; C1751; C9113; C9803; G0257; G0378; J0171; J0330; J0461; J0692; J1644; J1650; J1815; J1956; J2060; J2270; J2370; J2704; J2765; J2920; J3370; J3475; J7030; J7040; J7060; J7120; P9016; P9047; Q5105; U0003; U0005